=== PATIENT | female | born 1945 | race African-American/Black ===

== ENCOUNTER 2018-01-21 08:45 | Inpatient (IN) | payer OTHER ==
[2018-01-21 08:53] VITALS: BMI 28.6
--- NOTE | 2018-01-21 09:04 | PDOC ---
History of Present Illness - General Chief Complaint: Shortness of Breath Stated Complaint: BACK AND GROIN PAIN Time Seen by Provider: 01/21/18 09:03 - History of Present Illness Initial Comments: Ami Flaherty is a 73yo woman with a PMH of sickle cell disease, COPD, and HTN who presents reporting right groin pain since this morning that she states is "sickle cell pain." She says this pain is "20/10" constant, and non- radiating. Ms Flaherty also says that she's had this pain many times and knows what it is. She took her normal 40mg extended release oxycodone as well as her PRN immediate release 30mg oxycodone at home without improvement. She does also note mid-back pain across the entire back, present for weeks, that improved with the pain medications. She had an appointment with orthopedics this past week and was told that a "pin" from a prior surgery had become displaced; she is following up with her PMD regarding the back pain and is not concerned about it today. Also of note, Ms Flaherty's triage report lists SOB as her chief complaint, but she states that her breathing is at baseline today. She used her albuterol treatment last night with some improvement but due to the groin pain did not use the albuterol today; she endorses needing a breathing treatment currently but says she is not feeling particularly short of breath. She says that she told "the lady outside" that she was "always short of breath." Ms Flaherty denies any recent increased cough, chest pain, fever/chills, nausea/ vomiting, or change in bowel habits. She has been taking all of her medications as prescribed. She does endorse urinary urgency but says it has been present for "months" and she has an appointment with nephrology on the . She has otherwise been feeling at her baseline recently. Past History - Past Medical History Allergies/Adverse Reactions: Allergies Allergy/AdvReac Type Severity Reaction Status Date / Time ciprofloxacin [From Cipro] Allergy Itching Verified 01/21/18 08:48 ciprofloxacin HCl Allergy Itching Verified 01/21/18 08:48 [From Cipro] codeine [Codeine] Allergy Verified 01/21/18 08:48 levofloxacin [From Levaquin] Allergy Itching Verified 01/21/18 08:48 Penicillins Allergy Itching Verified 01/21/18 08:48 Sulfa (Sulfonamide Allergy Verified 01/21/18 08:48 Antibiotics) tetanus immune globulin Allergy Verified 01/21/18 08:48 IV DYE Allergy Uncoded 01/21/18 08:48 Home Medications: Ambulatory Orders Folic Acid - 1 mg PO DAILY 02/11/13 Docusate Sodium [Colace -] 100 mg PO DAILY 04/06/15 Montelukast Na [Singulair -] 10 mg PO HS 04/06/15 Budesonide/Formeterol Fumarate [SYMBICORT 160/4.5mcg -] 1 inh PO BID 08/19/15 Cholecalciferol (Vitamin D3) [Vitamin D3 -] 1,000 unit PO DAILY 08/19/15 Ipratropium/Albuterol Sulfate [Combivent Respimat 20-100 Mcg] 1 inh IH Q4H PRN 08/19/15 Acetaminophen [Tylenol .Extra-Strength -] 1,000 mg PO Q8H PRN #0 tablet Apixaban [Eliquis] 2.5 mg PO DAILY 11/19/15 Chlorhexidine Gluconate 480 ml MM HS #1 mouthwash 11/25/15 Albuterol Sulfate [Proair Hfa] 2 inh IH QID PRN 01/21/18 Apixaban [Eliquis] 5 mg PO DAILY 01/21/18 Duloxetine HCl 30 mg PO HS 01/21/18 Duloxetine HCl 60 mg PO BID 01/21/18 Gabapentin 300 mg PO HS 01/21/18 Gabapentin [Neurontin] 100 mg PO HS 01/21/18 Hydrochlorothiazide [Hctz -] 12.5 mg PO BID 01/21/18 Losartan Potassium [Cozaar -] 50 mg PO DAILY 01/21/18 Oxycodone HCl [Oxycontin] 40 mg PO QID PRN 01/21/18 Anemia: Yes (SICKLE CELL) Asthma: No (BRONCHITIS) Cancer: No CVA: No COPD: No Diabetes: No HTN: Yes Seizures: No - Surgical History Abdominal Surgery: Yes Cardiac Surgery: No Cholecystectomy: Yes Orthopedic Surgery: Yes (nato hip replacement 2005 ?) - Immunization History Immunization Up to Date: Yes (no pna) - Suicide/Smoking/Psychosocial Hx Smoking Status: No Smoking History: Never smoked Number of Cigarettes Smoked Daily: 0 Hx Alcohol Use: No Drug/Substance Use Hx: No Substance Use Type: None Hx Substance Use Treatment: No Review of Systems - Review of Systems Comments:: General: No fevers, no chills, no weight or appetite change, no malaise HEENT: No changes in vision, no changes in hearing, no nasal congestion, no sore throat CV: No chest pain, no palpitations, no LE edema Pulm: +chronic SOB, +chronic wheezing, no unusual/new cough GI: No nausea or vomiting, no change in bowel habits, no melena : No frequency, no dysuria, no hematuria. +urgency (several months) Musc: +mid back pain, no joint swelling, no recent injury Skin: No rash, no lesions, no erythema Endo: No excessive thirst, no heat/cold intolerance Heme: No unusual bruising or bleeding, no swollen glands. +fully anticoagulated Allergy: No recent hives, no allergic reactions Neuro: No syncope, no numbness/tingling, no focal weakness Vasc: No claudication Psych: No recent change in mood, no SI or HI *Physical Exam - Vital Signs Last Vital Signs Temp Pulse Resp BP Pulse Ox 99 F 116 H 24 H 134/75 93 L 01/21/18 08:48 01/21/18 08:48 01/21/18 08:48 01/21/18 08:48 01/21/18 08:48 - Physical Exam Comments: General: Comfortable, no acute distress HEENT: PERRL, EOMI, MMM, voice normal, normal neck ROM, no LAD Cards: Tachycardic in low 100's, no murmur appreciated Pulm: Satting in low 90's on room air. Diffuse wheezing b/l Abd: Soft, nontender, nondistended. R groin w/o erythema, edema, or obvious injury Ext: Atraumatic. No LE edema. ROM intact. Strength 5/5 and equal bilaterally Vasc: Extremities WWP. Skin: Normal color, no rashes or lesions Neuro: A&Ox3, CN grossly intact, normal speech, motor/sensory grossly intact and symmetric Psych: Mood appropriate to situation Moderate Sedation - Procedure Monitoring Vital Signs: Procedure Monitoring Vital Signs Temperature 99 F 01/21/18 08:48 Pulse Rate 116 H 01/21/18 08:48 Respiratory Rate 24 H 01/21/18 08:48 Blood Pressure 134/75 01/21/18 08:48 O2 Sat by Pulse Oximetry (%) 93 L 01/21/18 08:48 ED Treatment Course - LABORATORY CBC & Chemistry Diagram: 01/21/18 10:10 01/21/18 10:10 Medical Decision Making - Medical Decision Making 01/21/18 09:42 Ami Flaherty is a 73yo woman with a PMH of sickle cell disease, COPD, HTN, and previous PE on apixaban who presents with right groin pain that she reports is consistent with previous sickle cell crisis. She was also noted to be tachycardic with low O2 sats and diffuse wheezing. - Concern for sickle cell crisis given groin pain. Given recent urinary urgency and mid-back pain, could also potentially be UTI or kidney stone. - Hypoxia, wheezing, mild tachypnea most likely due to known COPD. However, need to r/o acute chest syndrome or pneumonia. Pt also has a h/o PE; this is less likely the cause as she is on apixaban but may need to work up for current PE depending on presents of infiltrate on CXR and improvement with nebs. - CBC, CMP, reticulocyte count ordered for evaluation of sickle cell, possible crisis - CXR to evaluate for infiltrate, pneumonia v acute chest. Also ordered blood cx - BNP to r/o fluid overload, though less likely given no h/o CHF - EKG ordered due to tachycardia 01/21/18 11:43 - Labs reviewed. Leukocytosis to 15 (per chart review is at baseline), Cr elevated to 1.4 from previous value under 1 (from 2016). BNP 30, trop negative. - Meets sepsis criteria due to leukocytosis, tachycardia, tachypnea, hypoxia. Adding lactate, VBG, urine culture, rectal temp - CXR with LLL atalectesis. Ordering ceftriaxone and azithromycin for presumed pneumonia - Will send page Dr Mathur for admission - PO potassium ordered for hypokalemia 01/21/18 12:36 - Second page sent to Dr Mathur 01/21/18 12:54 - Spoke with NELIA Gonzalez for admission. Accepted to Dr Mathur's service. - Lactate 2.2. Will recheck per sepsis protocol. Already received IVF. Seen and discussed with Dr Dong. Roselia Vargas PGY1 *DC/Admit/Observation/Transfer Diagnosis at time of Disposition: Sepsis, Sickle cell anemia with pain, Elevated serum creatinine, Hypokalemia - Discharge Dispostion Decision to Admit order: Yes - Referrals Referrals: Javed Wilkinson MD [Primary Care Provider] - - Patient Instructions - Post Discharge Activity
--- NOTE | 2018-01-21 09:18 | PDOC ---
Attending Attestation - Resident Resident Name: Roselia Vargas - ED Attending Attestation I have performed the following: I have examined & evaluated the patient, The case was reviewed & discussed with the resident, I agree w/resident's findings & plan, Exceptions are as noted - Physicial Exam PE: 01/21/18 09:42 GENERAL: The patient is awake, alert, and fully oriented, Nontoxic - in no acute distress. HEAD: Normocephalic, atraumatic. EYES: extraocular movements intact, sclera anicteric, conjunctiva clear. ENT: Normal voice, Moist mucous membranes. NECK: Normal range of motion, supple LUNGS: rhonchi bilaterally, moderate respiratory distress HEART: Regular rate and rhythm, normal S1 and S2 without murmur, rub or gallop. ABDOMEN: Soft, nontender, No guarding, no rebound. . No CVA tenderness EXTREMITIES: Normal range of motion, no edema. no focal bony tenderness on hip , mild ttp to inner groin/hip NEUROLOGICAL: No facial assymetry, Normal speech, movijnga ll 4 extremiies spontaneously and symmetrically PSYCH: Normal mood, normal affect. SKIN: Warm, Dry, normal turgor, 01/21/18 09:44 - Medical Decision Making 01/21/18 09:16 73y F hx of asthma, sickle cell disease, PE (compliant w/ eliquis) presents with groin since this AM - consistent with her previous sickle cell pain crises. Patient also endorses several weeks of mid back pain that is currently being evaluated as outpatient as well as mild urinary hesitancy that is being worked up by urology. Patient endorses some shortness of breath and cough for several days as well as some dyspnea on exertion without any fevers, chills, chest pain, hemoptysis, leg swelling, calf pain. Concern for possible sickle cell crisis, or shortness breath may be secondary to acute chest wall rule out with chest x-ray, are also possible bronchitis/ asthma exacerbation we will give the patient some DuoNeb. Will obtain EKG to screen for acute cardiac disease. If chest x-ray is negative may consider pulmonary embolism as the patient is tachycardic, hypoxic. Fluids for hydration, morphine for pain control anticipate admissoin for further management A portion of this note was documented by scribe services under my direction. I have reviewed the details of the note, within reason, and agree with the documentation with the following case summary and management plan written by me 01/21/18 11:33 cxr noted for atelectasis vs infiltrate. pna vs acute chest (does not have a infiltrate that involves entire lobe) will treat with ctx and azithromycin labs noted for elevated wbc retic count slightly elevated will admit for further mangaement <[email or web address] - Last Filed: 01/21/18 12:10> - HPI HPI: 01/21/18 09:52 The patient is a 73 year old female, with a significant past medical history of PE on Eliquis BID(x6, ~5 while on Coumadin), asthma (chronic SOB uses at home nebulizers), sickle cell disease, COPD, kidney stones, and HTN, who presents to the emergency department with, left groin pain since this morning. She ranks her pain a 20/10, radiating to her left calf, and similar to her baseline sickle cell attacks. She endorses taking her at home Oxycodone, without relief prompting her visit to the ER. She notes back pain (a month with ortho follow up ) and mild urinary retention (2 months with urology follow up). She denies a history of acute chest. She denies recent fevers, chills, headache or dizziness. She denies recent nausea, vomit, diarrhea or constipation. She denies recent dysuria or hematuria. She denies recent chest pain. Allergies: Ciprofloxacin (Itching) , Ciprofloxacin HCL (Itching), Codeine, levofloxacin (Itching) , penicillin (Itching) , sulfa, tetanus immune globulin, and IV dye Past surgical history: Cholecystectomy, blt hip replacement, and bladder lift. Social history: Nonsmoker. Denies EtOH use and recreational drug use. Primary Care Physician: Dr. Becky Wilkinson - Medical Decision Making 01/21/18 11:30am Call placed to Dr. Mathur, covering doctor for Dr. Wilkinson. Made aware POSITION CLASSIFICATION SPECIALIST Zoran Gonzalez covering awaiting call back. 12:15pm Second placed to Dr. Mathur, covering doctor for Dr. Wilkinson. Made aware POSITION CLASSIFICATION SPECIALIST Zoran Gonzalez covering awaiting call back. <Jazz Jay - Last Filed: 01/21/18 12:36> Heart Score/ECG Review - ECG Impressions Comment:: 12/15/18 12:11 Twelve-lead EKG was performed and reviewed by me. There is normal sinus rhythm with a normal rate. rate of 113 left axis devaitaion sinus tachycardia <Les Dong - Last Filed: 01/21/18 12:10> Attestations - Attestations 01/21/18 09:52 Documentation prepared by Jazz Jay, acting as medical billing manager for Les Dong MD. <Jazz Jay - Last Filed: 01/21/18 12:36>
[2018-01-21] MEDS ORDERED: SODIUM CHLORIDE 0.9% 500 ML INFUS.BAG IV ONE (09:21)
[2018-01-21] MEDS ORDERED: ALBUTEROL SO4 2.5/IPRATROPIUM 0.5 INH SOL 3 ML VIAL.NEB. NEB ONE ×2 (09:21→09:51)
[2018-01-21] MEDS ORDERED: morphine CARPU-JECT 4 MG/1 ML DISP.SYRIN IVPUSH ONE (09:21)
[2018-01-21 10:35] LABS: BASO % 1.5 % (0-2.0); EOS % 3.5 % (0-4.5); HEMATOCRIT 30.9 % (32.4-45.2); HEMOGLOBIN 10.6 GM/dL (10.7-15.3); LYMPH % 23.1 % (8-40); MCH 27.2 pg (25.7-33.7); MCHC 34.3 g/dl (32.0-36.0); MEAN CELL VOLUME 79.4 fl (80-96); MEAN PLT VOLUME 8.4 fl (7.5-11.1); MONO % 5.7 % (3.8-10.2); NEUT % 66.2 % (42.8-82.8); PLATELET COUNT 330 K/MM3 (134-434); RBC 3.89 M/mm3 (3.60-5.2); RDW 19.5 % (11.6-15.6); RETICULOCYTES 2.37 % (0.5-1.5); WHITE BLOOD COUNT 14.9 K/mm3 (4.0-10.0)
[2018-01-21 10:42] LABS: ALBUMIN 3.1 g/dl (3.4-5.0); ALK PHOS 126 U/L (45-117); ANION GAP 8 MMOL/L (8-16); BILIRUBIN,TOTAL 0.6 mg/dL (0.2-1); BLOOD UREA NITROGEN 15 mg/dL (7-18); CALCIUM 7.8 mg/dL (8.5-10.1); CHLORIDE 100 mmol/L (98-107); CO2 30 mmol/L (21-32); CREATININE 1.4 mg/dL (0.55-1.3); GLUCOSE,RANDOM 144 mg/dL (74-106); POTASSIUM 3.3 mmol/L (3.5-5.1); SGOT/AST 14 U/L (15-37); SGPT/ALT 8 U/L (13-61); SODIUM 138 mmol/L (136-145); TOT PROT 7.9 g/dl (6.4-8.2)
[2018-01-21 10:44] LABS: N-TERMINAL BNP 30.7 pg/ml (5-125)
[2018-01-21] MEDS ORDERED: CEFTRIAXONE 1,000 MG in DEXTROSE 5%-WATER - 50 ML IVPB ONE (11:33)
[2018-01-21] MEDS ORDERED: AZITHROMYCIN IVPB 500 MG in DEXTROSE 5%-WATER - 250 ML IVPB ONE (11:33)
[2018-01-21] MEDS ORDERED: CEFTRIAXONE 1 GM/50 ML BAG ONE ×2 (11:49→11:51)
[2018-01-21] MEDS ORDERED: AZITHROMYCIN IVPB 500 MG/250 ML BAG IVPB ONE (11:49)
[2018-01-21 12:30] LABS: INR 1.32 (0.83-1.09); PROTHROMBIN TIME (PATIENT) 15.6 SEC (9.7-13.0)
[2018-01-21 12:33] LABS: ACTIVATED PTT 30.8 SECONDS (25.2-36.5)
[2018-01-21] MEDS ORDERED: POTASSIUM CHLORIDE TABS 20 MEQ TABLET.ER (FP) PO ONE (12:35)
[2018-01-21] MEDS ORDERED: oxyCODONE HCL 40 MG SUSTAINED ACTING TABLET PO PRN (12:37)
[2018-01-21] MEDS ORDERED: ALBUTEROL SO4 8 GM HFA INHALER IH PRN (12:37)
[2018-01-21] MEDS ORDERED: ACETAMINOPHEN 500 MG TABLET (FP) PO PRN ×2 (12:37→12:57)
[2018-01-21 12:45] LABS: ANISOCYTOSIS 2+; MACROCYTOSIS 1+; PLATELET ESTIMATE NORMAL
[2018-01-21] MEDS ORDERED: ALBUTEROL SO4 0.083% IH SOL 2.5 MG/3 ML VIAL.NEB. NEB PRN (12:45)
[2018-01-21] MEDS ORDERED: oxyCODONE HCL 5 MG TABLET PO PRN (12:45)
[2018-01-21] MEDS ORDERED: SODIUM CHLORIDE 1,000 ML IV SCH (13:00)
[2018-01-21 13:04] LABS: VENOUS PC02 62.3 mmHg (38-52); VENOUS PH 7.31 (7.32-7.42); VENOUS PO2 62.3 mmHg (28-48)
[2018-01-21] MEDS: FOLIC ACID 1 MG TABLET (FP) PO SCH (13:15)
[2018-01-21] MEDS ORDERED: POTASSIUM CHLORIDE ORAL LIQUID 20 MEQ/15 ML ONE (13:23)
[2018-01-21] MEDS ORDERED: FOLIC ACID 1 MG TABLET (FP) ONE (13:23)
--- NOTE | 2018-01-21 14:56 | HP ---
Admitting History and Physical - Primary Care Physician PCP: Javed Wilkinson (Pedro Mathur) - Admission Chief Complaint: Sickle cell crisis History of Present Illness: Ami Flaherty is a 73yo woman with a PMH of sickle cell disease, COPD, and HTN who presents reporting right groin pain since this morning that she states is "sickle cell pain." She says this pain is "20/10" constant, and non- radiating. Ms Flaherty also says that she's had this pain many times and knows what it is. She took her normal 40mg extended release oxycodone as well as her PRN immediate release 30mg oxycodone at home without improvement. She does also note mid-back pain across the entire back, present for weeks, that improved with the pain medications. She had an appointment with orthopedics this past week and was told that a "pin" from a prior surgery had become displaced; she is following up with her PMD regarding the back pain and is not concerned about it today. Also of note, Ms Flaherty's triage report lists SOB as her chief complaint, but she states that her breathing is at baseline today. She used her albuterol treatment last night with some improvement but due to the groin pain did not use the albuterol today; she endorses needing a breathing treatment currently but says she is not feeling particularly short of breath. She says that she told "the lady outside" that she was "always short of breath." Ms Flaherty denies any recent increased cough, chest pain, fever/chills, nausea/ vomiting, or change in bowel habits. She has been taking all of her medications as prescribed. She does endorse urinary urgency but says it has been present for "months" and she has an appointment with nephrology on the . She has otherwise been feeling at her baseline recently. History Source: Patient, Medical Record Limitations to Obtaining History: No Limitations - Past Medical History Cardiovascular: Yes: HTN Pulmonary: Yes: COPD, Pulmonary Embolus Heme/Onc: Yes: Sickle Cell Disease, Other (SC disease , followed at [facility]) Psych: Yes: Addictions, Other (Pain meds- methadone, oxycodone ) Musculoskeletal: Yes: Chronic low back pain - Past Surgical History Past Surgical History: Yes: Cholecystectomy - Smoking History Smoking history: Never smoked Aproximately how many cigarettes per day: 0 - Alcohol/Substance Use Hx Alcohol Use: No History of Substance Use: reports: Prescription - Social History ADL: Independent History of Recent Travel: No Home Medications - Allergies Allergies/Adverse Reactions: Allergies Allergy/AdvReac Type Severity Reaction Status Date / Time ciprofloxacin [From Cipro] Allergy Itching Verified 01/21/18 08:48 ciprofloxacin HCl Allergy Itching Verified 01/21/18 08:48 [From Cipro] codeine [Codeine] Allergy Verified 01/21/18 08:48 levofloxacin [From Levaquin] Allergy Itching Verified 01/21/18 08:48 Penicillins Allergy Itching Verified 01/21/18 08:48 Sulfa (Sulfonamide Allergy Verified 01/21/18 08:48 Antibiotics) tetanus immune globulin Allergy Verified 01/21/18 08:48 IV DYE Allergy Uncoded 01/21/18 08:48 - Home Medications Home Medications: Ambulatory Orders Folic Acid - 1 mg PO DAILY 02/11/13 Docusate Sodium [Colace -] 100 mg PO DAILY 04/06/15 Montelukast Na [Singulair -] 10 mg PO HS 04/06/15 Budesonide/Formeterol Fumarate [SYMBICORT 160/4.5mcg -] 1 inh PO BID 08/19/15 Cholecalciferol (Vitamin D3) [Vitamin D3 -] 1,000 unit PO DAILY 08/19/15 Ipratropium/Albuterol Sulfate [Combivent Respimat 20-100 Mcg] 1 inh IH Q4H PRN 08/19/15 Acetaminophen [Tylenol .Extra-Strength -] 1,000 mg PO Q8H PRN #0 tablet Apixaban [Eliquis] 2.5 mg PO DAILY 11/19/15 Chlorhexidine Gluconate 480 ml MM HS #1 mouthwash 11/25/15 Albuterol Sulfate [Proair Hfa] 2 inh IH QID PRN 01/21/18 Apixaban [Eliquis] 5 mg PO DAILY 01/21/18 Duloxetine HCl 30 mg PO HS 01/21/18 Duloxetine HCl 60 mg PO BID 01/21/18 Gabapentin 300 mg PO HS 01/21/18 Gabapentin [Neurontin] 100 mg PO HS 01/21/18 Hydrochlorothiazide [Hctz -] 12.5 mg PO BID 01/21/18 Losartan Potassium [Cozaar -] 50 mg PO DAILY 01/21/18 Oxycodone HCl [Oxycontin] 40 mg PO QID PRN 01/21/18 Family Disease History - Family Disease History Family Disease History: Diabetes: Mother (HTN, TIIDM, Stroke), Heart Disease: Mother, CA: Father (Lung CA), Other: Mother Review of Systems - Review of Systems Constitutional: reports: Other (generalized pain) Eyes: reports: No Symptoms HENT: reports: No Symptoms Neck: reports: No Symptoms Cardiovascular: reports: No Symptoms Respiratory: reports: No Symptoms Gastrointestinal: reports: No Symptoms Genitourinary: reports: No Symptoms Breasts: reports: No Symptoms Reported Musculoskeletal: reports: No Symptoms Integumentary: reports: No Symptoms Neurological: reports: No Symptoms Endocrine: reports: No Symptoms Hematology/Lymphatic: reports: No Symptoms Psychiatric: reports: No Symptoms Pain Intensity: 6 Physical Examination Vital Signs: Vital Signs Temperature 97.2 F L 01/21/18 13:24 Pulse Rate 93 H 01/21/18 13:24 Respiratory Rate 18 01/21/18 11:45 Blood Pressure 117/60 01/21/18 13:24 O2 Sat by Pulse Oximetry (%) 99 01/21/18 13:24 Constitutional: Yes: Well Nourished, No Distress, Calm Cardiovascular: Yes: Regular Rate and Rhythm Respiratory: Yes: Regular Gastrointestinal: Yes: Normal Bowel Sounds, Soft Labs: CBC, BMP 01/21/18 10:10 01/21/18 10:10
[2018-01-21] MEDS: LOSARTAN POTASSIUM 50 MG TABLET (FP) PO SCH (15:32)
[2018-01-21] MEDS: CHOLECALCIFEROL (VITAMIN D3) 1,000 UNIT TABLET (FP) PO SCH (15:32)
[2018-01-21] MEDS: DOCUSATE SODIUM 100 MG CAPSULE (FP) PO SCH (15:32)
[2018-01-21] MEDS: oxyCODONE HCL 40 MG SUSTAINED ACTING TABLET PO SCH ×3 (15:34→22:53)
[2018-01-21] MEDS ORDERED: PT OWN MED DRAWER 7, Y5N ONE (15:36)
[2018-01-21] MEDS: BUDESONIDE/FORMETEROL FUMARATE 160/4.5 mcg INHALER IH SCH (15:38)
[2018-01-21] MEDS: ALBUTEROL SO4 2.5/IPRATROPIUM 0.5 INH SOL 3 ML VIAL.NEB. NEB SCH ×2 (16:21→21:28)
[2018-01-21] MEDS: DULoxetine HCL 30 MG CAPSULE.DR (FP) PO SCH (22:52)
[2018-01-21] MEDS: GABAPENTIN 300 MG CAPSULE (FP) PO SCH (22:53)
[2018-01-21] MEDS: MONTELUKAST NA 10 MG TABLET PO SCH (22:54)
[2018-01-21] MEDS: CHLORHEXIDINE GLUCONATE 0.12% 15ML CUP MM SCH (22:54)
[2018-01-22] MEDS: ALBUTEROL SO4 2.5/IPRATROPIUM 0.5 INH SOL 3 ML VIAL.NEB. NEB SCH ×5 (00:24→20:34)
[2018-01-22] MEDS: MORPHINE SULFATE 2 MG/ML VIAL IVPUSH PRN ×2 (01:24→17:12)
[2018-01-22] MEDS ORDERED: PT OWN MED DRAWER 7, Y5N ONE (07:16)
[2018-01-22 08:09] LABS: PHOSPHOROUS 3.1 mg/dL (2.5-4.9)
[2018-01-22 08:36] LABS: URINE APPEARANCE CLEAR; URINE BILIRUBIN NEGATIVE (<2.0 mg/dL); URINE COLOR STRAW; URINE GLUCOSE (UA) NEGATIVE (NEGATIVE); URINE KETONE NEGATIVE (NEGATIVE); URINE LEUK ESTERASE NEGATIVE (NEGATIVE); URINE NITRITE NEGATIVE (NEGATIVE); URINE PROTEIN NEGATIVE (NEGATIVE); URINE UROBILINOGEN NEGATIVE mg/dL (0.2-1.0)
[2018-01-22 08:55] LABS: HEMATOCRIT 28.6 % (32.4-45.2); HEMOGLOBIN 9.8 GM/dL (10.7-15.3); MCH 27.1 pg (25.7-33.7); MCHC 34.1 g/dl (32.0-36.0); MEAN CELL VOLUME 79.5 fl (80-96); MEAN PLT VOLUME 9.2 fl (7.5-11.1); PLATELET COUNT 306 K/MM3 (134-434); RDW 19.5 % (11.6-15.6); WHITE BLOOD COUNT 14.3 K/mm3 (4.0-10.0)
[2018-01-22 09:00] LABS: ALBUMIN 2.7 g/dl (3.4-5.0); ALK PHOS 97 U/L (45-117); ANION GAP 8 MMOL/L (8-16); BILIRUBIN,TOTAL 0.5 mg/dL (0.2-1); BLOOD UREA NITROGEN 10 mg/dL (7-18); CALCIUM 7.3 mg/dL (8.5-10.1); CHLORIDE 107 mmol/L (98-107); CO2 28 mmol/L (21-32); CREATININE 0.8 mg/dL (0.55-1.3); GLUCOSE,RANDOM 85 mg/dL (74-106); POTASSIUM 3.6 mmol/L (3.5-5.1); SGOT/AST 15 U/L (15-37); SGPT/ALT 6 U/L (13-61); SODIUM 142 mmol/L (136-145); TOT PROT 6.8 g/dl (6.4-8.2)
--- NOTE | 2018-01-22 09:36 | CON.ID ---
Consult Consult Specialty:: infectious disease Referred by:: dr newell Reason for Consultation:: cough, pneumonia - History of Present Illness Chief Complaint: left groin pain, cough/sob/wheezing History of Present Illness: 73 yo female with SC disease, admitted for left groin painsince Tuesday- classic for her sc pain not responding to po pain meds no history of fevers but states she never gets fever +wheezing with cough for at least 5 days now non productive +influenza vaccine this year UTD with pneumonia vaccine feels better with improvement of pain this am eleveated wbc and lactic acid in the ER received ceftriaxone and zithromax in [facility] yesterday had vomiting on Tuesday that has resolved no sick contacts no recent antibiotics - History Source History Provided By: Patient, Medical Record Limitations to Obtaining History: No Limitations - Past Medical History Cardio/Vascular: Yes: HTN Pulmonary: Yes: COPD, Pulmonary Embolus Heme/Onc: Yes: Sickle Cell Disease (SC disease) Psych: Yes: Addictions, Other (Pain meds- methadone, oxycodone ) Musculoskeletal: Yes: Chronic low back pain - Past Surgical History Past Surgical History: Yes: Cholecystectomy, Hysterectomy, Joint Replacement ( bilateral hip replacements) Additional Surgical History: bilateral rotator cuff surgery. lumbar spine surgery - Alcohol/Substance Use Hx Alcohol Use: No History of Substance Use: reports: Prescription - Smoking History Smoking history: Never smoked Aproximately how many cigarettes per day: 0 - Social History Usual Living Arrangement: With Spouse ADL: Independent History of Recent Travel: No Home Medications - Allergies Allergies/Adverse Reactions: Allergies Allergy/AdvReac Type Severity Reaction Status Date / Time ciprofloxacin [From Cipro] Allergy Itching Verified 01/21/18 08:48 ciprofloxacin HCl Allergy Itching Verified 01/21/18 08:48 [From Cipro] codeine [Codeine] Allergy Verified 01/21/18 08:48 levofloxacin [From Levaquin] Allergy Itching Verified 01/21/18 08:48 Penicillins Allergy Itching Verified 01/21/18 08:48 Sulfa (Sulfonamide Allergy Verified 01/21/18 08:48 Antibiotics) tetanus immune globulin Allergy Verified 01/21/18 08:48 IV DYE Allergy Uncoded 01/21/18 08:48 - Home Medications Home Medications: Ambulatory Orders Folic Acid - 1 mg PO DAILY 02/11/13 Docusate Sodium [Colace -] 100 mg PO DAILY 04/06/15 Montelukast Na [Singulair -] 10 mg PO HS 04/06/15 Budesonide/Formeterol Fumarate [SYMBICORT 160/4.5mcg -] 1 inh PO BID 08/19/15 Cholecalciferol (Vitamin D3) [Vitamin D3 -] 1,000 unit PO DAILY 08/19/15 Ipratropium/Albuterol Sulfate [Combivent Respimat 20-100 Mcg] 1 inh IH Q4H PRN 08/19/15 Acetaminophen [Tylenol .Extra-Strength -] 1,000 mg PO Q8H PRN #0 tablet Apixaban [Eliquis] 2.5 mg PO DAILY 11/19/15 Chlorhexidine Gluconate 480 ml MM HS #1 mouthwash 11/25/15 Albuterol Sulfate [Proair Hfa] 2 inh IH QID PRN 01/21/18 Apixaban [Eliquis] 5 mg PO DAILY 01/21/18 Duloxetine HCl 30 mg PO HS 01/21/18 Duloxetine HCl 60 mg PO BID 01/21/18 Gabapentin 300 mg PO HS 01/21/18 Gabapentin [Neurontin] 100 mg PO HS 01/21/18 Hydrochlorothiazide [Hctz -] 12.5 mg PO BID 01/21/18 Losartan Potassium [Cozaar -] 50 mg PO DAILY 01/21/18 Oxycodone HCl [Oxycontin] 40 mg PO QID PRN 01/21/18 Family Disease History - Family Disease History Family Disease History: Diabetes: Mother (HTN, TIIDM, Stroke), Heart Disease: Mother, CA: Father (Lung CA), Other: Mother Review of Systems - Review of Systems Constitutional: reports: Loss of Appetite Eyes: reports: No Symptoms HENT: reports: No Symptoms. denies: Difficult Swallowing Neck: reports: No Symptoms Cardiovascular: reports: No Symptoms. denies: Chest Pain, Edema Respiratory: reports: Cough, Wheezing Gastrointestinal: reports: Other (left groin pain) Genitourinary: reports: Other (urinary retention being evaluated by urology). denies: Burning, Dysuria Neurological: reports: No Symptoms Endocrine: reports: No Symptoms Physical Exam Vital Signs: Vital Signs Temperature 98 F 01/22/18 06:42 Pulse Rate 95 H 01/22/18 06:42 Respiratory Rate 20 01/22/18 06:42 Blood Pressure 129/64 01/22/18 06:42 O2 Sat by Pulse Oximetry (%) 99 01/21/18 13:24 Constitutional: Yes: Well Nourished, No Distress, Calm Eyes: Yes: Conjunctiva Clear, EOM Intact HENT: Yes: Atraumatic, Normocephalic. No: Thrush, Tonsillar Exudate Neck: Yes: Supple, Trachea Midline. No: Lymphadenopathy Cardiovascular: Yes: Regular Rate and Rhythm Respiratory: Yes: Rhonchi, Wheezes Gastrointestinal: Yes: Normal Bowel Sounds, Soft. No: Tenderness, Tenderness, Epigastrium ...Rectal Exam: Yes: Deferred Extremities: Yes: WNL Edema: No Integumentary: No: Rash Neurological: Yes: Alert, Oriented Psychiatric: Yes: Alert, Oriented Labs: CBC, BMP 01/22/18 06:00 01/22/18 06:00 Laboratory Tests 01/21/18 01/21/18 01/22/18 12:10 15:55 06:00 Lactic Acid 2.2 H* 2.6 H* 1.3 01/22/18 08:26 Lactic Acid Urine Color Straw Urine Appearance Clear Urine pH 6.0 Ur Specific [place] 1.004 L Urine Protein Negative Urine Glucose (UA) Negative Urine Ketones Negative Urine Blood Negative Urine Nitrite Negative Urine Bilirubin Negative Urine Urobilinogen Negative Ur Leukocyte Esterase Negative Imaging - Results Chest X-ray: Report Reviewed (atelectasis left base, t9 partical compression fracture) Problem List - Problems (1) COPD exacerbation Code(s): J44.1 - CHRONIC OBSTRUCTIVE PULMONARY DISEASE W (ACUTE) EXACERBATION (2) Sickle cell anemia with pain Code(s): D57.00 - HB-SS DISEASE WITH CRISIS, UNSPECIFIED (3) Pneumonia Code(s): J18.9 - PNEUMONIA, UNSPECIFIED ORGANISM Assessment/Plan cannot r/o pneumonia-in the setting of SC disease and current respiratory symptoms would continue rocephin/zithromax f/u cultures check urinary antigens continue nebs sc pain appears to be improved
--- NOTE | 2018-01-22 09:44 | CONSULT ---
Consult - text type - Consultation Consultation Note: Renal Consult for GUCCI This is a 73 year old AA woman with hx of Sickle Cell disease, Hypertension, COPD who presented groin pain and admitted with sick cell crisis. Pt had pain that was worsening over 2 days and not getting better with oral pain meds at home. Her Cr was noted to be 1.4 on admission. Was told in the past that the sickle cell disease had resulted in scaring of her kidney. Is also on Losartan at home. Denies any NSIAD use. No SOB, CP, abd pain, fever, chills, N/V/D at this time. PMhx: as above Allergies: NKDA Family Hx: NC Social Hx: No T/A/D ROS: as per HPI Home Medications Medication Instructions Recorded Folic Acid - 1 mg PO DAILY 02/11/13 Docusate Sodium [Colace -] 100 mg PO DAILY 04/06/15 Montelukast Na [Singulair -] 10 mg PO HS 04/06/15 Budesonide/Formeterol Fumarate 1 inh PO BID 08/19/15 [SYMBICORT 160/4.5mcg -] Cholecalciferol (Vitamin D3) 1,000 unit PO DAILY 08/19/15 [Vitamin D3 -] Ipratropium/Albuterol Sulfate 1 inh IH Q4H PRN 08/19/15 [Combivent Respimat 20-100 Mcg] Acetaminophen [Tylenol 1,000 mg PO Q8H PRN #0 tablet 08/24/15 .Extra-Strength -] Apixaban [Eliquis] 2.5 mg PO DAILY 11/19/15 Chlorhexidine Gluconate 480 ml MM HS #1 mouthwash 11/25/15 Albuterol Sulfate [Proair Hfa] 2 inh IH QID PRN 01/21/18 Apixaban [Eliquis] 5 mg PO DAILY 01/21/18 Duloxetine HCl 30 mg PO HS 01/21/18 Duloxetine HCl 60 mg PO BID 01/21/18 Gabapentin 300 mg PO HS 01/21/18 Gabapentin [Neurontin] 100 mg PO HS 01/21/18 Hydrochlorothiazide [Hctz -] 12.5 mg PO BID 01/21/18 Losartan Potassium [Cozaar -] 50 mg PO DAILY 01/21/18 Oxycodone HCl [Oxycontin] 40 mg PO QID PRN 01/21/18 Vital Signs Temperature 98 F 01/22/18 06:42 Pulse Rate 95 H 01/22/18 06:42 Respiratory Rate 20 01/22/18 06:42 Blood Pressure 129/64 01/22/18 06:42 O2 Sat by Pulse Oximetry (%) 99 01/21/18 13:24 NAD awake and alert neck supple RRR, no M/R CTA soft NT/ND no Le edema no bladder distension CBC, BMP 01/22/18 06:00 01/22/18 06:00 Current Medications Acetaminophen (Tylenol -) 1,000 mg PO Q6H PRN PRN Reason: FEVER Albuterol Sulfate (Ventolin 0.083% Nebulizer Soln -) 1 amp NEB Q4H PRN PRN Reason: SHORT OF BREATH/WHEEZING Albuterol/Ipratropium (Duoneb -) 1 amp NEB Q6H [facility] Last Admin: 01/22/18 07:49 Dose: 1 amp Budesonide/Formoterol Fumarate (Symbicort 160/4.5mcg -) 1 puff IH BID [facility] Last Admin: 01/21/18 15:38 Dose: Not Given Chlorhexidine Gluconate (Peridex -) 480 ml MM HS [facility] Last Admin: 01/21/18 22:54 Dose: Not Given Cholecalciferol (Vitamin D3 -) 1,000 unit PO DAILY [facility] Last Admin: 01/21/18 15:32 Dose: 1,000 unit Docusate Sodium (Colace -) 100 mg PO DAILY [facility] Last Admin: 01/21/18 15:32 Dose: 100 mg Duloxetine HCl (Cymbalta -) 30 mg PO HS [facility] Last Admin: 01/21/18 22:52 Dose: 30 mg Folic Acid (Folic Acid -) 1 mg PO DAILY [facility] Last Admin: 01/21/18 13:15 Dose: 1 mg Gabapentin (Neurontin -) 300 mg PO HS [facility] Last Admin: 01/21/18 22:53 Dose: 300 mg Sodium Chloride (Normal Saline -) 1,000 mls @ 75 mls/hr IV ASDIR [facility] Last Admin: 01/21/18 15:33 Dose: 75 mls/hr Losartan Potassium (Cozaar -) 50 mg PO DAILY [facility] Last Admin: 01/21/18 15:32 Dose: 50 mg Montelukast Sodium (Singulair -) 10 mg PO HS [facility] Last Admin: 01/21/18 22:54 Dose: 10 mg Morphine Sulfate (Morphine Sulfate) 2 mg IVPUSH Q6H PRN PRN Reason: PAIN LEVEL 7 - 10 Last Admin: 01/22/18 01:24 Dose: 2 mg Oxycodone HCl (Roxicodone -) 5 mg PO Q6H PRN PRN Reason: PAIN LEVEL 4 - 6 Oxycodone HCl (Oxycontin -) 40 mg PO QID [facility] Last Admin: 01/21/18 22:53 Dose: 40 mg 73 year old AA woman with hx of Sickle Cell disease, Hypertension, COPD who presented groin pain and admitted with sick cell crisis with GUCCI. #GUCCI secondary to volume depletion vs. renal infarction in setting of SCD #Sickle cell crisis #Hypertension #Anemia Renal function now improving, continue IVF would recommend discontinuation of HCTZ in the halfway as volume depletion can potentiate risk of further crisis episdoes check US of the kidney to access for evidence of ischemia/infarction pt not on hydroxyurea at this time, ? 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
[2018-01-22] MEDS: oxyCODONE HCL 40 MG SUSTAINED ACTING TABLET PO SCH ×4 (09:49→21:07)
[2018-01-22] MEDS: LOSARTAN POTASSIUM 50 MG TABLET (FP) PO SCH (09:50)
[2018-01-22] MEDS: FOLIC ACID 1 MG TABLET (FP) PO SCH (09:50)
[2018-01-22] MEDS: BUDESONIDE/FORMETEROL FUMARATE 160/4.5 mcg INHALER IH SCH ×3 (09:50→21:09)
[2018-01-22] MEDS: DOCUSATE SODIUM 100 MG CAPSULE (FP) PO SCH (09:50)
[2018-01-22] MEDS: CHOLECALCIFEROL (VITAMIN D3) 1,000 UNIT TABLET (FP) PO SCH (09:50)
--- NOTE | 2018-01-22 10:00 | PN ---
Progress Note, Physician Chief Complaint: GUCCI Intractable low back pain sepsis History of Present Illness: NAD - Current Medication List Current Medications: Active Medications Acetaminophen (Tylenol -) 1,000 mg PO Q6H PRN PRN Reason: FEVER Albuterol Sulfate (Ventolin 0.083% Nebulizer Soln -) 1 amp NEB Q4H PRN PRN Reason: SHORT OF BREATH/WHEEZING Albuterol/Ipratropium (Duoneb -) 1 amp NEB Q6H [facility] Last Admin: 01/22/18 07:49 Dose: 1 amp Budesonide/Formoterol Fumarate (Symbicort 160/4.5mcg -) 1 puff IH BID [facility] Last Admin: 01/22/18 09:50 Dose: 1 puff Chlorhexidine Gluconate (Peridex -) 480 ml MM HS [facility] Last Admin: 01/21/18 22:54 Dose: Not Given Cholecalciferol (Vitamin D3 -) 1,000 unit PO DAILY [facility] Last Admin: 01/22/18 09:50 Dose: 1,000 unit Docusate Sodium (Colace -) 100 mg PO DAILY [facility] Last Admin: 01/22/18 09:50 Dose: 100 mg Duloxetine HCl (Cymbalta -) 30 mg PO HS [facility] Last Admin: 01/21/18 22:52 Dose: 30 mg Folic Acid (Folic Acid -) 1 mg PO DAILY [facility] Last Admin: 01/22/18 09:50 Dose: 1 mg Gabapentin (Neurontin -) 300 mg PO HS [facility] Last Admin: 01/21/18 22:53 Dose: 300 mg Sodium Chloride (Normal Saline -) 1,000 mls @ 75 mls/hr IV ASDIR [facility] Last Admin: 01/21/18 15:33 Dose: 75 mls/hr Losartan Potassium (Cozaar -) 50 mg PO DAILY [facility] Last Admin: 01/22/18 09:50 Dose: 50 mg Montelukast Sodium (Singulair -) 10 mg PO HS [facility] Last Admin: 01/21/18 22:54 Dose: 10 mg Morphine Sulfate (Morphine Sulfate) 2 mg IVPUSH Q6H PRN PRN Reason: PAIN LEVEL 7 - 10 Last Admin: 01/22/18 01:24 Dose: 2 mg Oxycodone HCl (Roxicodone -) 5 mg PO Q6H PRN PRN Reason: PAIN LEVEL 4 - 6 Oxycodone HCl (Oxycontin -) 40 mg PO QID [facility] Last Admin: 01/22/18 09:49 Dose: 40 mg - Objective Vital Signs: Vital Signs Temperature 98 F 01/22/18 06:42 Pulse Rate 95 H 01/22/18 06:42 Respiratory Rate 20 01/22/18 06:42 Blood Pressure 129/64 01/22/18 06:42 O2 Sat by Pulse Oximetry (%) 99 01/21/18 13:24 Labs: CBC, BMP 01/22/18 06:00 01/22/18 06:00 INR, PTT INR 1.32 (0.83-1.09) H 01/21/18 12:10
[2018-01-22] MEDS: AZITHROMYCIN 250 MG TABLET PO SCH (10:27)
[2018-01-22] MEDS ORDERED: CEFTRIAXONE 1 GM in DEXTROSE 5%-WATER 100 ML IVPB SCH (10:32)
[2018-01-22] MEDS ORDERED: DEXTROSE 5%-WATER - 50 ML IVPB ONE (10:40)
[2018-01-22] MEDS ORDERED: cefTRIAXone SODIUM 1 GM VIAL ONE (10:40)
[2018-01-22] MEDS: CEFTRIAXONE 1 GM in DEXTROSE 5%-WATER - 100 ML IVPB SCH ×2 (10:47→10:49)
[2018-01-22] MEDS: CEFTRIAXONE 1 GM in DEXTROSE 5%-WATER - 50 ML IVPB SCH (10:48)
[2018-01-22 11:00] LABS: ANISOCYTOSIS 1+; MACROCYTOSIS 0; PLATELET ESTIMATE NORMAL; TARGET CELLS 2+
[2018-01-22 11:18] LABS: URINE APPEARANCE CLEAR; URINE BILIRUBIN NEGATIVE (<2.0 mg/dL); URINE COLOR STRAW; URINE GLUCOSE (UA) NEGATIVE (NEGATIVE); URINE KETONE NEGATIVE (NEGATIVE); URINE LEUK ESTERASE 1+ (NEGATIVE); URINE NITRITE NEGATIVE (NEGATIVE); URINE PROTEIN NEGATIVE (NEGATIVE); URINE UROBILINOGEN NEGATIVE mg/dL (0.2-1.0)
[2018-01-22 11:29] LABS: EPI CELLS FEW /HPF (FEW)
--- NOTE | 2018-01-22 12:22 | EKG ---
Test Reason : Blood Pressure : / mmHG Vent. Rate : 113 BPM Atrial Rate : 113 BPM P-R Int : 162 ms QRS Dur : 074 ms QT Int : 320 ms P-R-T Axes : 072 -42 056 degrees QTc Int : 438 ms SINUS TACHYCARDIA LEFT AXIS DEVIATION ABNORMAL ECG WHEN COMPARED WITH ECG OF 19-NOV-2015 13:59, VENT. RATE HAS INCREASED BY 49 BPM NONSPECIFIC T WAVE ABNORMALITY NO LONGER EVIDENT IN INFERIOR LEADS NONSPECIFIC T WAVE ABNORMALITY, IMPROVED IN ANTEROLATERAL LEADS Confirmed by YEHUDA MAJOR MD ([id number]) on 01/22/2018 12:21:52 PM Referred By: Confirmed By:YEHUDA MAJOR MD
--- NOTE | 2018-01-22 13:02 | CONSULT ---
Consult Consult Specialty:: Hematology Referred by:: Medicine Reason for Consultation:: Sickle crisis - History of Present Illness Chief Complaint: Patient with history of SC disease, presented with ongoing generalized 1-2 days, not responsive to her usual opioid pain regimen History of Present Illness: Known SC disease, managed at [facility], on home opioid regime, apparently tightly controlled and monitored. Also attends Sickle clinic - Dr Mcintosh. Very few crisis related admissions - and few sickle related complications. No clear precipitant for current crisis - patient believes she may have been dehydrated, which she attributes to decreased fluid intake past few days. Now feeling well,and back to baseline. Present consult for leukocytosis. - Past Medical History Cardio/Vascular: Yes: HTN Pulmonary: Yes: COPD, Pulmonary Embolus Psych: Yes: Addictions, Other (Pain meds- methadone, oxycodone ) Musculoskeletal: Yes: Chronic low back pain - Past Surgical History Past Surgical History: Yes: Cholecystectomy, Hysterectomy, Joint Replacement ( bilateral hip replacements) Additional Surgical History: bilateral rotator cuff surgery. lumbar spine surgery - Alcohol/Substance Use Hx Alcohol Use: No History of Substance Use: reports: Prescription - Smoking History Smoking history: Never smoked Aproximately how many cigarettes per day: 0 - Social History Usual Living Arrangement: With Spouse ADL: Independent History of Recent Travel: No Home Medications - Allergies Allergies/Adverse Reactions: Allergies Allergy/AdvReac Type Severity Reaction Status Date / Time ciprofloxacin [From Cipro] Allergy Itching Verified 01/21/18 08:48 ciprofloxacin HCl Allergy Itching Verified 01/21/18 08:48 [From Cipro] codeine [Codeine] Allergy Verified 01/21/18 08:48 levofloxacin [From Levaquin] Allergy Itching Verified 01/21/18 08:48 Penicillins Allergy Itching Verified 01/21/18 08:48 Sulfa (Sulfonamide Allergy Verified 01/21/18 08:48 Antibiotics) tetanus immune globulin Allergy Verified 01/21/18 08:48 IV DYE Allergy Uncoded 01/21/18 08:48 - Home Medications Home Medications: Ambulatory Orders Folic Acid - 1 mg PO DAILY 02/11/13 Docusate Sodium [Colace -] 100 mg PO DAILY 04/06/15 Montelukast Na [Singulair -] 10 mg PO HS 04/06/15 Budesonide/Formeterol Fumarate [SYMBICORT 160/4.5mcg -] 1 inh PO BID 08/19/15 Cholecalciferol (Vitamin D3) [Vitamin D3 -] 1,000 unit PO DAILY 08/19/15 Ipratropium/Albuterol Sulfate [Combivent Respimat 20-100 Mcg] 1 inh IH Q4H PRN 08/19/15 Acetaminophen [Tylenol .Extra-Strength -] 1,000 mg PO Q8H PRN #0 tablet Apixaban [Eliquis] 2.5 mg PO DAILY 11/19/15 Chlorhexidine Gluconate 480 ml MM HS #1 mouthwash 11/25/15 Albuterol Sulfate [Proair Hfa] 2 inh IH QID PRN 01/21/18 Apixaban [Eliquis] 5 mg PO DAILY 01/21/18 Duloxetine HCl 30 mg PO HS 01/21/18 Duloxetine HCl 60 mg PO BID 01/21/18 Gabapentin 300 mg PO HS 01/21/18 Gabapentin [Neurontin] 100 mg PO HS 01/21/18 Hydrochlorothiazide [Hctz -] 12.5 mg PO BID 01/21/18 Losartan Potassium [Cozaar -] 50 mg PO DAILY 01/21/18 Oxycodone HCl [Oxycontin] 40 mg PO QID PRN 01/21/18 Family Disease History - Family Disease History Family Disease History: Diabetes: Mother (HTN, TIIDM, Stroke), Heart Disease: Mother, CA: Father (Lung CA), Other: Mother Physical Exam Vital Signs: Vital Signs Temperature 98 F 01/22/18 06:42 Pulse Rate 95 H 01/22/18 06:42 Respiratory Rate 20 01/22/18 06:42 Blood Pressure 129/64 01/22/18 06:42 O2 Sat by Pulse Oximetry (%) 99 01/21/18 13:24 Constitutional: Yes: Well Nourished, No Distress, Obese Eyes: Yes: Conjunctiva Clear Neck: Yes: WNL. No: Lymphadenopathy Cardiovascular: Yes: Regular Rate and Rhythm, S1, S2. No: Gallop, Murmur Respiratory: Yes: Regular, Wheezes. No: SOB Gastrointestinal: Yes: Normal Bowel Sounds, Soft. No: Palpable Mass, Tenderness , Epigastrium Edema: No Integumentary: Yes: WNL ...Motor Strength: WNL Psychiatric: Yes: Alert, Oriented Labs: CBC, BMP 01/22/18 06:00 01/22/18 06:00 Assessment/Plan Sickle SC disease, with infrequent crises requiring admission, presents with painful crisis, now quickly resolved with hydration. precipitant unclear - possibly dehydration. Mild neutrophilia noted on admission likely attributable to sickle crisis, and is typical for her, low index of suspicion for sepsis. Following discharge will continue care at [facility] Sickle clinic.
[2018-01-22] MEDS: APIXABAN 5 MG TABLET PO SCH ×2 (13:42→21:06)
--- NOTE | 2018-01-22 14:43 | PN ---
Progress Note (short form) - Note Progress Note: PULMONARY CONSULTATION DICTATED 01/22/18 IMP SICKLE CELL CRISIS ASTHMA EXACERBATION URI,?PNEUMONIA H/O RECURRENT PULMONARY EMBOLISM HTN PLAN IVF ANALGESICS INHALED BRONCHODILATORS O2 ABX PER ID ELIMARY ANNE CHEST CT PFTS OUTPATIENT CULTURES MONITOR PEAK FLOW DR PANDEY Problem List - Problems (1) Sickle cell crisis Code(s): D57.00 - HB-SS DISEASE WITH CRISIS, UNSPECIFIED (2) COPD (chronic obstructive pulmonary disease) with chronic bronchitis Code(s): J44.9 - CHRONIC OBSTRUCTIVE PULMONARY DISEASE, UNSPECIFIED (3) Pulmonary embolism and infarction Code(s): I26.99 - OTHER PULMONARY EMBOLISM WITHOUT ACUTE COR PULMONALE (4) Pulmonary embolism during treatment with long-term anticoagulation therapy Code(s): I26.99 - OTHER PULMONARY EMBOLISM WITHOUT ACUTE COR PULMONALE; Z79.01 - HALF-WAY (CURRENT) USE OF ANTICOAGULANTS (5) Pneumonia Code(s): J18.9 - PNEUMONIA, UNSPECIFIED ORGANISM (6) Asthma Code(s): J45.909 - UNSPECIFIED ASTHMA, UNCOMPLICATED (7) Asthma attack Code(s): J45.901 - UNSPECIFIED ASTHMA WITH (ACUTE) EXACERBATION
--- NOTE | 2018-01-22 16:10 | CONS ---
DATE OF CONSULTATION: 01/22/2018 PRIMARY PHYSICIAN: Viktoria Walsh MD. 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 The patient denies any fevers, chills, nausea, vomiting or diaphoresis. The patient on admission took her normal 40 mg of oxycodone at home which did not offer any improvement. She presented to the emergency room above. In the emergency room she was felt to have acute sickle cell crisis on her pain medication and IV fluid. She also was started on antibiotics for possible pneumonia. She denies any fevers, chills, nausea or hemoptysis. There is no history of recent URI symptoms. As stated before she has a history of asthma for approximately 1 year. She has never been intubated. She is on an inhaled bronchodilator at home. PAST MEDICAL HISTORY: Includes sickle cell disease, COPD, hypertension, recurrent pulmonary emboli previously lasting 4 years ago. She previously was on Coumadin and currently on Eliquis. REVIEW OF SYSTEMS: Positive dyspnea, positive cough. No chest pain, no palpitations, or back pain, no fevers, no chills, no hemoptysis. CURRENT MEDICATIONS: Include Symbicort , Tylenol, Cozaar, Zithromax, ceftriaxone, Eliquis, Neurontin, Cymbalta, DuoNeb, Colace, , oxycodone, and OxyContin. PHYSICAL EXAMINATION: General: The patient is a well-developed, well-nourished female currently awake, alert, appears comfortable in no acute distress. She is currently afebrile. Vital Signs: Blood pressure 124/73, respiratory rate is 20, oxygen saturation is 98% on 2 L. HEENT: Examination is normocephalic, atraumatic. Neck: Supple. Heart: Regular S1, S2. Chest: Scattered bilateral wheezes. Abdomen: Soft, nondistended. Bowel sounds are positive. Extremities: No cyanosis or edema. LABORATORIES: WBC 14.3, hemoglobin 9.8, hematocrit 28.6, with a platelet count of 306,000. There are 49 polys, 1 band, and 37 lymphocytes, and 4 eosinophils. INR is 1.32. Venous blood gas 7.31, PCO2 62, PO2 of 63. Lactate is 2.6 on admission, currently 1.3. BUN 10, creatinine 0.8. IMAGING: Chest x-ray reveals an elevated left right hemidiaphragm and atelectatic change to the left base. IMPRESSION: 1. Sickle cell crisis. 2. Likely asthma exacerbation. 3. Probable pneumonia. 4. Hypertension. PLAN: IV fluids, inhaled bronchodilators, supplemental oxygen, steroids, antibiotics as per Infectious Disease. We will also obtain a CT scan of the chest. Start her on inhaled bronchodilators, supplemental oxygen, IV fluids, and analgesics. CT scan of the chest. DICK PANDEY M.D. [id number]
[2018-01-22] MEDS: DULoxetine HCL 30 MG CAPSULE.DR (FP) PO SCH (21:05)
[2018-01-22] MEDS: MONTELUKAST NA 10 MG TABLET PO SCH (21:06)
[2018-01-22] MEDS: GABAPENTIN 300 MG CAPSULE (FP) PO SCH (21:08)
[2018-01-23] MEDS: CHLORHEXIDINE GLUCONATE 0.12% 15ML CUP MM SCH ×2 (05:43→21:38)
[2018-01-23 06:10] LABS: HEMATOCRIT 30.6 % (32.4-45.2); HEMOGLOBIN 9.9 GM/dL (10.7-15.3); LYMPH % 46.7 % (8-40); MCH 25.6 pg (25.7-33.7); MCHC 32.3 g/dl (32.0-36.0); MEAN CELL VOLUME 79.5 fl (80-96); MEAN PLT VOLUME 8.2 fl (7.5-11.1); MONO % 3.7 % (3.8-10.2); NEUT % 45.6 % (42.8-82.8); PLATELET COUNT 299 K/MM3 (134-434); RBC 3.85 M/mm3 (3.60-5.2); RDW 19.6 % (11.6-15.6); WHITE BLOOD COUNT 13.8 K/mm3 (4.0-10.0)
[2018-01-23 06:39] LABS: ALBUMIN 2.7 g/dl (3.4-5.0); ALK PHOS 104 U/L (45-117); ANION GAP 5 MMOL/L (8-16); BILIRUBIN,TOTAL 0.3 mg/dL (0.2-1); BLOOD UREA NITROGEN 7 mg/dL (7-18); CALCIUM 7.7 mg/dL (8.5-10.1); CHLORIDE 105 mmol/L (98-107); CO2 31 mmol/L (21-32); CREATININE 0.9 mg/dL (0.55-1.3); GLUCOSE,RANDOM 136 mg/dL (74-106); POTASSIUM 3.6 mmol/L (3.5-5.1); SGOT/AST 13 U/L (15-37); SGPT/ALT 8 U/L (13-61); SODIUM 141 mmol/L (136-145); TOT PROT 7.1 g/dl (6.4-8.2)
[2018-01-23] MEDS: ALBUTEROL SO4 2.5/IPRATROPIUM 0.5 INH SOL 3 ML VIAL.NEB. NEB SCH ×4 (07:50→21:19)
[2018-01-23] MEDS ORDERED: PT OWN MED DRAWER 7, Y5N ONE (10:51)
[2018-01-23] MEDS ORDERED: cefTRIAXone SODIUM 1 GM VIAL ONE (10:51)
[2018-01-23] MEDS ORDERED: DEXTROSE 5%-WATER - 50 ML IVPB ONE (10:52)
[2018-01-23] MEDS: DOCUSATE SODIUM 100 MG CAPSULE (FP) PO SCH (10:55)
[2018-01-23] MEDS: oxyCODONE HCL 40 MG SUSTAINED ACTING TABLET PO SCH ×3 (10:56→21:36)
[2018-01-23] MEDS: APIXABAN 5 MG TABLET PO SCH ×2 (10:56→21:36)
[2018-01-23] MEDS: FOLIC ACID 1 MG TABLET (FP) PO SCH (10:56)
[2018-01-23] MEDS: LOSARTAN POTASSIUM 50 MG TABLET (FP) PO SCH (10:56)
[2018-01-23] MEDS: CEFTRIAXONE 1 GM in DEXTROSE 5%-WATER - 50 ML IVPB SCH (10:57)
[2018-01-23] MEDS: AZITHROMYCIN 250 MG TABLET PO SCH (10:58)
[2018-01-23] MEDS: BUDESONIDE/FORMETEROL FUMARATE 160/4.5 mcg INHALER IH SCH ×2 (10:58→21:38)
[2018-01-23] MEDS: CHOLECALCIFEROL (VITAMIN D3) 1,000 UNIT TABLET (FP) PO SCH (10:58)
[2018-01-23 11:12] LABS: ANISOCYTOSIS 2+; MACROCYTOSIS 0; OVALOCYTE 2+; PLATELET ESTIMATE NORMAL; TARGET CELLS 2+; TEAR DROP CELLS 1+
--- NOTE | 2018-01-23 11:14 | PN ---
Progress Note (short form) - Note Progress Note: continues to cough and wheeze ct scan of chest pending Vital Signs Period Temp Pulse Resp BP Sys/Mendez Pulse Ox Last 24 Hr 98.2 F-98.4 F 99-102 20-20 124-148/69-89 cor-rrr lungs bilateral wheezing abd soft,nt ext no edema CBC, BMP 01/23/18 05:30 01/23/18 05:30 Microbiology 01/21/18 10:00 Blood - Peripheral Venous Blood Culture - Preliminary NO GROWTH OBTAINED AFTER 48 HOURS, INCUBATION TO CONTINUE FOR 3 DAYS. 01/21/18 10:20 Blood - Peripheral Venous Blood Culture - Preliminary NO GROWTH OBTAINED AFTER 48 HOURS, INCUBATION TO CONTINUE FOR 3 DAYS. 01/22/18 10:58 Urine - Urine Clean Catch Urine Culture - Final NO GROWTH OBTAINED 01/22/18 11:00 Urine For Antigen Detection Legionella Antigen - Final- 01/22/18 11:00 Urine For Antigen Detection Streptococcus pneumoniae Antigen (M - Final Current Medications Acetaminophen (Tylenol -) 1,000 mg PO Q6H PRN PRN Reason: FEVER Albuterol Sulfate (Ventolin 0.083% Nebulizer Soln -) 1 amp NEB Q4H PRN PRN Reason: SHORT OF BREATH/WHEEZING Albuterol/Ipratropium (Duoneb -) 1 amp NEB RQID [facility] Last Admin: 01/23/18 07:50 Dose: 1 amp Apixaban (Eliquis -) 5 mg PO BID [facility] Last Admin: 01/23/18 10:56 Dose: 5 mg Azithromycin (Zithromax -) 500 mg PO DAILY [facility] Last Admin: 01/23/18 10:58 Dose: 500 mg Budesonide/Formoterol Fumarate (Symbicort 160/4.5mcg -) 1 puff IH BID [facility] Last Admin: 01/23/18 10:58 Dose: 1 puff Chlorhexidine Gluconate (Peridex -) 480 ml MM HS [facility] Last Admin: 01/23/18 05:43 Dose: Not Given Cholecalciferol (Vitamin D3 -) 1,000 unit PO DAILY [facility] Last Admin: 01/23/18 10:58 Dose: 1,000 unit Docusate Sodium (Colace -) 100 mg PO DAILY [facility] Last Admin: 01/23/18 10:55 Dose: 100 mg Duloxetine HCl (Cymbalta -) 30 mg PO HS [facility] Last Admin: 01/22/18 21:05 Dose: 30 mg Folic Acid (Folic Acid -) 1 mg PO DAILY [facility] Last Admin: 01/23/18 10:56 Dose: 1 mg Gabapentin (Neurontin -) 300 mg PO HS [facility] Last Admin: 01/22/18 21:08 Dose: 300 mg Ceftriaxone Sodium 1 gm/ (Dextrose) 50 mls @ 200 mls/hr IVPB DAILY [facility]; Protocol Last Admin: 01/23/18 10:57 Dose: 200 mls/hr Losartan Potassium (Cozaar -) 50 mg PO DAILY [facility] Last Admin: 01/23/18 10:56 Dose: 50 mg Montelukast Sodium (Singulair -) 10 mg PO HS [facility] Last Admin: 01/22/18 21:06 Dose: 10 mg Morphine Sulfate (Morphine Sulfate) 2 mg IVPUSH Q6H PRN PRN Reason: PAIN LEVEL 7 - 10 Last Admin: 01/22/18 17:12 Dose: 2 mg Oxycodone HCl (Roxicodone -) 5 mg PO Q6H PRN PRN Reason: PAIN LEVEL 4 - 6 Oxycodone HCl (Oxycontin -) 40 mg PO QID [facility] Last Admin: 01/23/18 10:56 Dose: 40 mg a/p r/o CAP- f/u cultures check influenza screen still wheezing f/u chest ct continue rocephin/zithromax sickle cell crisis Problem List - Problems (1) COPD exacerbation Code(s): J44.1 - CHRONIC OBSTRUCTIVE PULMONARY DISEASE W (ACUTE) EXACERBATION (2) Sickle cell anemia with pain Code(s): D57.00 - HB-SS DISEASE WITH CRISIS, UNSPECIFIED (3) Pneumonia Code(s): J18.9 - PNEUMONIA, UNSPECIFIED ORGANISM
--- NOTE | 2018-01-23 11:41 | PN ---
Progress Note, Physician Chief Complaint: lying in bed on iv abx awaiting ct chest report - Current Medication List Current Medications: Active Medications Acetaminophen (Tylenol -) 1,000 mg PO Q6H PRN PRN Reason: FEVER Albuterol Sulfate (Ventolin 0.083% Nebulizer Soln -) 1 amp NEB Q4H PRN PRN Reason: SHORT OF BREATH/WHEEZING Albuterol/Ipratropium (Duoneb -) 1 amp NEB RQID [facility] Last Admin: 01/23/18 11:32 Dose: 1 amp Apixaban (Eliquis -) 5 mg PO BID [facility] Last Admin: 01/23/18 10:56 Dose: 5 mg Azithromycin (Zithromax -) 500 mg PO DAILY [facility] Last Admin: 01/23/18 10:58 Dose: 500 mg Budesonide/Formoterol Fumarate (Symbicort 160/4.5mcg -) 1 puff IH BID [facility] Last Admin: 01/23/18 10:58 Dose: 1 puff Chlorhexidine Gluconate (Peridex -) 480 ml MM HS [facility] Last Admin: 01/23/18 05:43 Dose: Not Given Cholecalciferol (Vitamin D3 -) 1,000 unit PO DAILY [facility] Last Admin: 01/23/18 10:58 Dose: 1,000 unit Docusate Sodium (Colace -) 100 mg PO DAILY [facility] Last Admin: 01/23/18 10:55 Dose: 100 mg Duloxetine HCl (Cymbalta -) 30 mg PO HS [facility] Last Admin: 01/22/18 21:05 Dose: 30 mg Folic Acid (Folic Acid -) 1 mg PO DAILY [facility] Last Admin: 01/23/18 10:56 Dose: 1 mg Gabapentin (Neurontin -) 300 mg PO HS [facility] Last Admin: 01/22/18 21:08 Dose: 300 mg Ceftriaxone Sodium 1 gm/ (Dextrose) 50 mls @ 200 mls/hr IVPB DAILY [facility]; Protocol Last Admin: 01/23/18 10:57 Dose: 200 mls/hr Losartan Potassium (Cozaar -) 50 mg PO DAILY [facility] Last Admin: 01/23/18 10:56 Dose: 50 mg Montelukast Sodium (Singulair -) 10 mg PO HS [facility] Last Admin: 01/22/18 21:06 Dose: 10 mg Morphine Sulfate (Morphine Sulfate) 2 mg IVPUSH Q6H PRN PRN Reason: PAIN LEVEL 7 - 10 Last Admin: 01/22/18 17:12 Dose: 2 mg Oxycodone HCl (Roxicodone -) 5 mg PO Q6H PRN PRN Reason: PAIN LEVEL 4 - 6 Oxycodone HCl (Oxycontin -) 40 mg PO QID [facility] Last Admin: 01/23/18 10:56 Dose: 40 mg - Objective Vital Signs: Vital Signs Temperature 98.4 F 01/23/18 06:17 Pulse Rate 101 H 01/23/18 06:17 Respiratory Rate 20 01/23/18 06:17 Blood Pressure 136/69 01/23/18 06:17 O2 Sat by Pulse Oximetry (%) 99 01/21/18 13:24 Constitutional: Yes: Calm Cardiovascular: Yes: Regular Rate and Rhythm, S1, S2 Respiratory: Yes: Diminished Gastrointestinal: Yes: Normal Bowel Sounds, Soft Edema: No Neurological: Yes: Alert Labs: CBC, BMP 01/23/18 05:30 01/23/18 05:30 INR, PTT INR 1.32 (0.83-1.09) H 01/21/18 12:10 Problem List - Problems (1) Pulmonary embolism during treatment with long-term anticoagulation therapy Assessment/Plan: on eliquis Code(s): I26.99 - OTHER PULMONARY EMBOLISM WITHOUT ACUTE COR PULMONALE; 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 (2) Asthma attack Assessment/Plan: bronchodilators singulair Code(s): J45.901 - UNSPECIFIED ASTHMA WITH (ACUTE) EXACERBATION (3) Pneumonia Assessment/Plan: iv rocephin po Zithromax influenza screen pending ct chest report pending Code(s): J18.9 - PNEUMONIA, UNSPECIFIED ORGANISM (4) Sickle cell crisis Assessment/Plan: iv fluids and pain control Code(s): D57.00 - HB-SS DISEASE WITH CRISIS, UNSPECIFIED (5) Elevated serum creatinine Assessment/Plan: resolved with ivf renal sono noted Code(s): R79.89 - OTHER SPECIFIED ABNORMAL FINDINGS OF BLOOD CHEMISTRY (6) Hypokalemia Assessment/Plan: improved Code(s): E87.6 - HYPOKALEMIA
--- NOTE | 2018-01-23 12:52 | PN ---
Progress Note (short form) - Note Progress Note: Renal follow up for GUCCI Pt seen and examined at the bedside c/o cough/wheeze no cp, abd pain, fever, chills making urine tolerating oral diet Vital Signs Temperature 98.4 F 01/23/18 06:17 Pulse Rate 101 H 01/23/18 06:17 Respiratory Rate 20 01/23/18 06:17 Blood Pressure 136/69 01/23/18 06:17 O2 Sat by Pulse Oximetry (%) 99 01/21/18 13:24 Intake & Output 01/20/18 01/21/18 01/22/18 01/23/18 23:59 23:59 23:59 23:59 Intake Total 375 1255 350 Balance 375 1255 350 Weight 78.018 kg NAD Neck supple no LE edema CBC, BMP 01/23/18 05:30 01/23/18 05:30 Current Medications Acetaminophen (Tylenol -) 1,000 mg PO Q6H PRN PRN Reason: FEVER Albuterol Sulfate (Ventolin 0.083% Nebulizer Soln -) 1 amp NEB Q4H PRN PRN Reason: SHORT OF BREATH/WHEEZING Albuterol/Ipratropium (Duoneb -) 1 amp NEB RQID [facility] Last Admin: 01/23/18 11:32 Dose: 1 amp Apixaban (Eliquis -) 5 mg PO BID [facility] Last Admin: 01/23/18 10:56 Dose: 5 mg Azithromycin (Zithromax -) 500 mg PO DAILY [facility] Last Admin: 01/23/18 10:58 Dose: 500 mg Budesonide/Formoterol Fumarate (Symbicort 160/4.5mcg -) 1 puff IH BID [facility] Last Admin: 01/23/18 10:58 Dose: 1 puff Chlorhexidine Gluconate (Peridex -) 480 ml MM HS [facility] Last Admin: 01/23/18 05:43 Dose: Not Given Cholecalciferol (Vitamin D3 -) 1,000 unit PO DAILY [facility] Last Admin: 01/23/18 10:58 Dose: 1,000 unit Docusate Sodium (Colace -) 100 mg PO DAILY [facility] Last Admin: 01/23/18 10:55 Dose: 100 mg Duloxetine HCl (Cymbalta -) 30 mg PO HS [facility] Last Admin: 01/22/18 21:05 Dose: 30 mg Folic Acid (Folic Acid -) 1 mg PO DAILY [facility] Last Admin: 01/23/18 10:56 Dose: 1 mg Gabapentin (Neurontin -) 300 mg PO HS [facility] Last Admin: 01/22/18 21:08 Dose: 300 mg Ceftriaxone Sodium 1 gm/ (Dextrose) 50 mls @ 200 mls/hr IVPB DAILY [facility]; Protocol Last Admin: 01/23/18 10:57 Dose: 200 mls/hr Losartan Potassium (Cozaar -) 50 mg PO DAILY [facility] Last Admin: 01/23/18 10:56 Dose: 50 mg Montelukast Sodium (Singulair -) 10 mg PO HS [facility] Last Admin: 01/22/18 21:06 Dose: 10 mg Morphine Sulfate (Morphine Sulfate) 2 mg IVPUSH Q6H PRN PRN Reason: PAIN LEVEL 7 - 10 Last Admin: 01/22/18 17:12 Dose: 2 mg Oxycodone HCl (Roxicodone -) 5 mg PO Q6H PRN PRN Reason: PAIN LEVEL 4 - 6 Oxycodone HCl (Oxycontin -) 40 mg PO QID [facility] Last Admin: 01/23/18 10:56 Dose: 40 mg 73 year old AA woman with hx of Sickle Cell disease, Hypertension, COPD who presented groin pain and admitted with sick cell crisis with GUCCI. #GUCCI secondary to volume depletion vs. renal infarction in setting of SCD #Sickle cell crisis #Hypertension #Anemia Renal function improved and stable of IVF would recommend discontinuation of HCTZ in the long-term as volume depletion can potentiate risk of further crisis episdoes Renal US showed some dilation of renal pelvis but does not appears to be pathologic BP is at goal ,continue losartan continue Abx as per ID f/u CT chest Thank you Will follow Enrique Flores DO
--- NOTE | 2018-01-23 13:41 | PN ---
Progress Note, Physician History of Present Illness: PULMONARY ALERT,OOB-CHAIR,LESS DYSPNEIC - Current Medication List Current Medications: Active Medications Acetaminophen (Tylenol -) 1,000 mg PO Q6H PRN PRN Reason: FEVER Albuterol Sulfate (Ventolin 0.083% Nebulizer Soln -) 1 amp NEB Q4H PRN PRN Reason: SHORT OF BREATH/WHEEZING Albuterol/Ipratropium (Duoneb -) 1 amp NEB RQID [facility] Last Admin: 01/23/18 11:32 Dose: 1 amp Apixaban (Eliquis -) 5 mg PO BID [facility] Last Admin: 01/23/18 10:56 Dose: 5 mg Azithromycin (Zithromax -) 500 mg PO DAILY [facility] Last Admin: 01/23/18 10:58 Dose: 500 mg Budesonide/Formoterol Fumarate (Symbicort 160/4.5mcg -) 1 puff IH BID [facility] Last Admin: 01/23/18 10:58 Dose: 1 puff Chlorhexidine Gluconate (Peridex -) 480 ml MM HS [facility] Last Admin: 01/23/18 05:43 Dose: Not Given Cholecalciferol (Vitamin D3 -) 1,000 unit PO DAILY [facility] Last Admin: 01/23/18 10:58 Dose: 1,000 unit Docusate Sodium (Colace -) 100 mg PO DAILY [facility] Last Admin: 01/23/18 10:55 Dose: 100 mg Duloxetine HCl (Cymbalta -) 30 mg PO HS [facility] Last Admin: 01/22/18 21:05 Dose: 30 mg Folic Acid (Folic Acid -) 1 mg PO DAILY [facility] Last Admin: 01/23/18 10:56 Dose: 1 mg Gabapentin (Neurontin -) 300 mg PO HS [facility] Last Admin: 01/22/18 21:08 Dose: 300 mg Ceftriaxone Sodium 1 gm/ (Dextrose) 50 mls @ 200 mls/hr IVPB DAILY [facility]; Protocol Last Admin: 01/23/18 10:57 Dose: 200 mls/hr Losartan Potassium (Cozaar -) 50 mg PO DAILY [facility] Last Admin: 01/23/18 10:56 Dose: 50 mg Montelukast Sodium (Singulair -) 10 mg PO HS [facility] Last Admin: 01/22/18 21:06 Dose: 10 mg Morphine Sulfate (Morphine Sulfate) 2 mg IVPUSH Q6H PRN PRN Reason: PAIN LEVEL 7 - 10 Last Admin: 01/22/18 17:12 Dose: 2 mg Oxycodone HCl (Roxicodone -) 5 mg PO Q6H PRN PRN Reason: PAIN LEVEL 4 - 6 Oxycodone HCl (Oxycontin -) 40 mg PO QID [facility] Last Admin: 01/23/18 10:56 Dose: 40 mg - Objective Vital Signs: Vital Signs Temperature 98.4 F 01/23/18 06:17 Pulse Rate 101 H 01/23/18 06:17 Respiratory Rate 20 01/23/18 06:17 Blood Pressure 136/69 01/23/18 06:17 O2 Sat by Pulse Oximetry (%) 99 01/21/18 13:24 Constitutional: Yes: Well Nourished, Calm Eyes: Yes: WNL HENT: Yes: WNL Neck: Yes: WNL Cardiovascular: Yes: Regular Rate and Rhythm, S1, S2 Respiratory: Yes: Wheezes (FEW WHEEZES) Gastrointestinal: Yes: Normal Bowel Sounds, Soft Extremities: Yes: WNL Edema: No Labs: CBC, BMP 01/23/18 05:30 01/23/18 05:30 INR, PTT INR 1.32 (0.83-1.09) H 01/21/18 12:10 Problem List - Problems (1) Sickle cell crisis Code(s): D57.00 - HB-SS DISEASE WITH CRISIS, UNSPECIFIED (2) COPD (chronic obstructive pulmonary disease) with chronic bronchitis Code(s): J44.9 - CHRONIC OBSTRUCTIVE PULMONARY DISEASE, UNSPECIFIED (3) Pulmonary embolism and infarction Code(s): I26.99 - OTHER PULMONARY EMBOLISM WITHOUT ACUTE COR PULMONALE (4) Pulmonary embolism during treatment with long-term anticoagulation therapy Code(s): I26.99 - OTHER PULMONARY EMBOLISM WITHOUT ACUTE COR PULMONALE; Z79.01 - ASSISTED (CURRENT) USE OF ANTICOAGULANTS (5) Pneumonia Code(s): J18.9 - PNEUMONIA, UNSPECIFIED ORGANISM (6) Asthma Code(s): J45.909 - UNSPECIFIED ASTHMA, UNCOMPLICATED (7) Asthma attack Code(s): J45.901 - UNSPECIFIED ASTHMA WITH (ACUTE) EXACERBATION Assessment/Plan IMP SICKLE CELL CRISIS ASTHMA EXACERBATION URI,?PNEUMONIA H/O RECURRENT PULMONARY EMBOLISM HTN PLAN IVF ANALGESICS INHALED BRONCHODILATORS O2 ABX PER ID ELIQUIS PFTS OUTPATIENT MONITOR PEAK FLOW DR PANDEY Problem List - Problems (1) Sickle cell crisis Code(s): D57.00 - HB-SS DISEASE WITH CRISIS, UNSPECIFIED (2) COPD (chronic obstructive pulmonary disease) with chronic bronchitis Code(s): J44.9 - CHRONIC OBSTRUCTIVE PULMONARY DISEASE, UNSPECIFIED (3) Pulmonary embolism and infarction Code(s): I26.99 - OTHER PULMONARY EMBOLISM WITHOUT ACUTE COR PULMONALE (4) Pulmonary embolism during treatment with long-term anticoagulation therapy Code(s): I26.99 - OTHER PULMONARY EMBOLISM WITHOUT ACUTE COR PULMONALE; Z79.01 - 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
[2018-01-23] MEDS: DULoxetine HCL 30 MG CAPSULE.DR (FP) PO SCH (21:36)
[2018-01-23] MEDS: GABAPENTIN 300 MG CAPSULE (FP) PO SCH (21:36)
[2018-01-23] MEDS: MONTELUKAST NA 10 MG TABLET PO SCH (21:36)
[2018-01-24 04:15] LABS: SERUM IRON SATURATION 32 % (15-55); TOTAL IRON BINDING CAPACITY 304 ug/dL (250-450); UIBC 206 ug/dL (118-369)
[2018-01-24] MEDS: ALBUTEROL SO4 2.5/IPRATROPIUM 0.5 INH SOL 3 ML VIAL.NEB. NEB SCH ×4 (08:53→20:25)
[2018-01-24 09:05] LABS: BASO % 1.8 % (0-2.0); EOS % 5.4 % (0-4.5); HEMATOCRIT 33.9 % (32.4-45.2); HEMOGLOBIN 10.8 GM/dL (10.7-15.3); LYMPH % 21.9 % (8-40); MCH 25.5 pg (25.7-33.7); MEAN CELL VOLUME 79.7 fl (80-96); MEAN PLT VOLUME 8.2 fl (7.5-11.1); MONO % 5.8 % (3.8-10.2); NEUT % 65.1 % (42.8-82.8); PLATELET COUNT 325 K/MM3 (134-434); RBC 4.25 M/mm3 (3.60-5.2); RDW 20.5 % (11.6-15.6); WHITE BLOOD COUNT 14.8 K/mm3 (4.0-10.0)
[2018-01-24] MEDS ORDERED: cefTRIAXone SODIUM 1 GM VIAL ONE (09:27)
[2018-01-24] MEDS ORDERED: DEXTROSE 5%-WATER - 50 ML IVPB ONE (09:28)
--- NOTE | 2018-01-24 10:01 | PN ---
Progress Note, Physician Chief Complaint: ASLEEP COMFORTABLE EVENTS AND NOTES REVIEWED - Current Medication List Current Medications: Active Medications Acetaminophen (Tylenol -) 1,000 mg PO Q6H PRN PRN Reason: FEVER Albuterol Sulfate (Ventolin 0.083% Nebulizer Soln -) 1 amp NEB Q4H PRN PRN Reason: SHORT OF BREATH/WHEEZING Albuterol/Ipratropium (Duoneb -) 1 amp NEB RQID [facility] Last Admin: 01/24/18 08:53 Dose: 1 amp Apixaban (Eliquis -) 5 mg PO BID [facility] Last Admin: 01/23/18 21:36 Dose: 5 mg Azithromycin (Zithromax -) 500 mg PO DAILY [facility] Last Admin: 01/23/18 10:58 Dose: 500 mg Budesonide/Formoterol Fumarate (Symbicort 160/4.5mcg -) 1 puff IH BID [facility] Last Admin: 01/23/18 21:38 Dose: 1 puff Chlorhexidine Gluconate (Peridex -) 480 ml MM HS [facility] Last Admin: 01/23/18 21:38 Dose: Not Given Cholecalciferol (Vitamin D3 -) 1,000 unit PO DAILY [facility] Last Admin: 01/23/18 10:58 Dose: 1,000 unit Docusate Sodium (Colace -) 100 mg PO DAILY [facility] Last Admin: 01/23/18 10:55 Dose: 100 mg Duloxetine HCl (Cymbalta -) 30 mg PO HS [facility] Last Admin: 01/23/18 21:36 Dose: 30 mg Folic Acid (Folic Acid -) 1 mg PO DAILY [facility] Last Admin: 01/23/18 10:56 Dose: 1 mg Gabapentin (Neurontin -) 300 mg PO HS [facility] Last Admin: 01/23/18 21:36 Dose: 300 mg Ceftriaxone Sodium 1 gm/ (Dextrose) 50 mls @ 200 mls/hr IVPB DAILY [facility]; Protocol Last Admin: 01/23/18 10:57 Dose: 200 mls/hr Losartan Potassium (Cozaar -) 50 mg PO DAILY [facility] Last Admin: 01/23/18 10:56 Dose: 50 mg Montelukast Sodium (Singulair -) 10 mg PO HS [facility] Last Admin: 01/23/18 21:36 Dose: 10 mg Morphine Sulfate (Morphine Sulfate) 2 mg IVPUSH Q6H PRN PRN Reason: PAIN LEVEL 7 - 10 Last Admin: 01/22/18 17:12 Dose: 2 mg Oxycodone HCl (Roxicodone -) 5 mg PO Q6H PRN PRN Reason: PAIN LEVEL 4 - 6 Oxycodone HCl (Oxycontin -) 40 mg PO BID [facility] Last Admin: 01/23/18 21:36 Dose: 40 mg - Objective Vital Signs: Vital Signs Temperature 98.4 F 01/24/18 06:00 Pulse Rate 97 H 01/24/18 06:00 Respiratory Rate 18 01/24/18 06:00 Blood Pressure 142/82 01/24/18 06:00 O2 Sat by Pulse Oximetry (%) 98 01/23/18 21:00 Constitutional: Yes: No Distress Eyes: Yes: WNL HENT: Yes: WNL Neck: Yes: WNL Cardiovascular: Yes: Regular Rate and Rhythm Respiratory: Yes: Diminished, On Nasal O2 Gastrointestinal: Yes: Soft Genitourinary: Yes: WNL Musculoskeletal: Yes: WNL Extremities: Yes: WNL Edema: No Peripheral Pulses WNL: Yes Neurological: Yes: WNL ...Motor Strength: WNL Psychiatric: Yes: WNL Labs: CBC, BMP 01/24/18 08:45 INR, PTT INR 1.32 (0.83-1.09) H 01/21/18 12:10 Problem List - Problems (1) Asthma Code(s): J45.909 - UNSPECIFIED ASTHMA, UNCOMPLICATED (2) Elevated serum creatinine Code(s): R79.89 - OTHER SPECIFIED ABNORMAL FINDINGS OF BLOOD CHEMISTRY (3) Pulmonary embolism during treatment with long-term anticoagulation therapy Code(s): I26.99 - OTHER PULMONARY EMBOLISM WITHOUT ACUTE COR PULMONALE; Z79.01 - INTERMEDIATE (CURRENT) USE OF ANTICOAGULANTS (4) Sickle cell anemia with pain Code(s): D57.00 - HB-SS DISEASE WITH CRISIS, UNSPECIFIED (5) Sickle cell crisis Code(s): D57.00 - HB-SS DISEASE WITH CRISIS, UNSPECIFIED Assessment/Plan ON AC NEBS PULM/02 THERAPY ANTIBIOTICS IV CHANGING TO PO ABX FOR DISCHARGE TOMORROW PAIN CONTROL HEME F/U
[2018-01-24 10:02] LABS: ALBUMIN 3.2 g/dl (3.4-5.0); ALK PHOS 109 U/L (45-117); ANION GAP 8 MMOL/L (8-16); BILIRUBIN,TOTAL 0.5 mg/dL (0.2-1); BLOOD UREA NITROGEN 7 mg/dL (7-18); CALCIUM 8.4 mg/dL (8.5-10.1); CHLORIDE 103 mmol/L (98-107); CO2 28 mmol/L (21-32); CREATININE 0.9 mg/dL (0.55-1.3); GLUCOSE,RANDOM 127 mg/dL (74-106); SGOT/AST 14 U/L (15-37); SGPT/ALT 8 U/L (13-61); SODIUM 139 mmol/L (136-145); TOT PROT 8.2 g/dl (6.4-8.2)
--- NOTE | 2018-01-24 10:29 | PN ---
Progress Note (short form) - Note Progress Note: Consult Progress Note: Hematology/Oncology continues to have cough and feels sob at times. feels more comfortable with nasal cannula, but able to breathe comfortably without supplemental oxygen. has increased her oral hydration. Pain in right lateral thigh starting to feel better since last night. was out of bed walking around yesterday denies fevers, chills, chest pain, nausea, vomiting, hematuria/dysuria/diarrhea Pt follows at [facility] for [place] disease, and normally has a WBC of 14. Vital Signs Temperature 98.4 F 01/24/18 06:00 Pulse Rate 97 H 01/24/18 06:00 Respiratory Rate 18 01/24/18 06:00 Blood Pressure 142/82 01/24/18 06:00 O2 Sat by Pulse Oximetry (%) 98 01/23/18 21:00 PE: NAD, +cough no oral lesions, nontender sinuses, -scleral ict +wheezing and rales in b/l lungs no MRG nontender chest abd soft, nd/nt no myalgia/joint pain or swelling, FROM in all joints. nontender left lateral thigh to palpation or movement of knee 2+ pules radial and DP no LE edema Laboratory Last Values WBC 14.8 K/mm3 (4.0-10.0) H 01/24/18 08:45 RBC 4.25 M/mm3 (3.60-5.2) 01/24/18 08:45 Hgb 10.8 GM/dL (10.7-15.3) 01/24/18 08:45 Hct 33.9 % (32.4-45.2) 01/24/18 08:45 MCV 79.7 fl (80-96) L 01/24/18 08:45 MCH 25.5 pg (25.7-33.7) L 01/24/18 08:45 MCHC 32.0 g/dl (32.0-36.0) 01/24/18 08:45 RDW 20.5 % (11.6-15.6) H 01/24/18 08:45 Plt Count 325 K/MM3 (134-434) 01/24/18 08:45 MPV 8.2 fl (7.5-11.1) 01/24/18 08:45 Absolute Neuts (auto) 9.7 K/mm3 (1.5-8.0) H 01/24/18 08:45 Neutrophils % 65.1 % (42.8-82.8) D 01/24/18 08:45 Neutrophils % (Manual) 50.5 % (42.8-82.8) 01/23/18 05:30 Band Neutrophils % 0.0 % 01/23/18 05:30 Lymphocytes % 21.9 % (8-40) D 01/24/18 08:45 Lymphocytes % (Manual) 23.7 % (8-40) D 01/23/18 05:30 Monocytes % 5.8 % (3.8-10.2) 01/24/18 08:45 Monocytes % (Manual) 6 % (3.8-10.2) 01/23/18 05:30 Eosinophils % 5.4 % (0-4.5) H 01/24/18 08:45 Eosinophils % (Manual) 3.1 % (0-4.5) 01/23/18 05:30 Basophils % 1.8 % (0-2.0) 01/24/18 08:45 Basophils % (Manual) 0.0 % (0-2.0) 01/23/18 05:30 Myelocytes % (Man) 0 % (0-2) 01/23/18 05:30 Promyelocytes % (Man) 0 % (0-2) 01/23/18 05:30 Blast Cells % (Manual) 0 % (0-0) 01/23/18 05:30 Nucleated RBC % 1 % (0-0) H 01/24/18 08:45 Metamyelocytes 0 % (0-2) 01/23/18 05:30 Hypochromia 2+ 01/23/18 05:30 Platelet Estimate Normal 01/23/18 05:30 Polychromasia 2+ 01/23/18 05:30 Poikilocytosis 0 01/23/18 05:30 Anisocytosis 2+ 01/23/18 05:30 Microcytosis 2+ 01/23/18 05:30 Macrocytosis 0 01/23/18 05:30 Target Cells 2+ 01/23/18 05:30 Tear Drop Cells 1+ 01/23/18 05:30 Ovalocytes 2+ 01/23/18 05:30 Retic Count 2.37 % (0.5-1.5) H 01/21/18 10:10 PT with INR 15.60 SEC (9.7-13.0) H 01/21/18 12:10 INR 1.32 (0.83-1.09) H 01/21/18 12:10 PTT (Actin FS) 30.8 SECONDS (25.2-36.5) 01/21/18 12:10 VBG pH 7.31 (7.32-7.42) L 01/21/18 12:58 POC VBG pCO2 62.3 mmHg (38-52) H* 01/21/18 12:58 POC VBG pO2 62.3 mmHg (28-48) H 01/21/18 12:58 Mixed VBG HCO3 30.4 meq/L (19-25) H 01/21/18 12:58 Sodium 139 mmol/L (136-145) 01/24/18 08:45 Potassium 4.0 mmol/L (3.5-5.1) 01/24/18 08:45 Chloride 103 mmol/L (98-107) 01/24/18 08:45 Carbon Dioxide 28 mmol/L (21-32) 01/24/18 08:45 Anion Gap 8 MMOL/L (8-16) 01/24/18 08:45 BUN 7 mg/dL (7-18) 01/24/18 08:45 Creatinine 0.9 mg/dL (0.55-1.3) 01/24/18 08:45 Creat Clearance w eGFR > 60 (>60) 01/24/18 08:45 Random Glucose 127 mg/dL (74-106) H 01/24/18 08:45 Hemoglobin A1c % 4.7 % (4.2-6.3) 01/22/18 06:00 Lactic Acid 1.3 mmol/L (0.4-2.0) 01/22/18 06:00 Calcium 8.4 mg/dL (8.5-10.1) L 01/24/18 08:45 Phosphorus 3.1 mg/dL (2.5-4.9) 01/22/18 06:00 Iron 98 ug/dL (27-139) 01/22/18 06:00 TIBC 304 ug/dL (250-450) 01/22/18 06:00 Iron Saturation 32 % (15-55) 01/22/18 06:00 Ferritin 40.1 ng/ml (8-388) 01/22/18 06:00 Total Bilirubin 0.5 mg/dL (0.2-1) 01/24/18 08:45 AST 14 U/L (15-37) L 01/24/18 08:45 ALT 8 U/L (13-61) L 01/24/18 08:45 Alkaline Phosphatase 109 U/L (45-117) 01/24/18 08:45 Creatine Kinase 114 IU/L (26-192) 01/21/18 10:10 Troponin I < 0.02 ng/ml (0.00-0.05) 01/21/18 10:10 B-Natriuretic Peptide 30.7 pg/ml (5-125) 01/21/18 10:10 Total Protein 8.2 g/dl (6.4-8.2) 01/24/18 08:45 Albumin 3.2 g/dl (3.4-5.0) L 01/24/18 08:45 Urine Color Straw 01/22/18 11:00 Urine Appearance Clear 01/22/18 11:00 Urine pH 6.0 (5.0-8.0) 01/22/18 11:00 Ur Specific [place] 1.006 (1.010-1.035) L 01/22/18 11:00 Urine Protein Negative (NEGATIVE) 01/22/18 11:00 Urine Glucose (UA) Negative (NEGATIVE) 01/22/18 11:00 Urine Ketones Negative (NEGATIVE) 01/22/18 11:00 Urine Blood 1+ (NEGATIVE) H 01/22/18 11:00 Urine Nitrite Negative (NEGATIVE) 01/22/18 11:00 Urine Bilirubin Negative (<2.0 mg/dL) 01/22/18 11:00 Urine Urobilinogen Negative mg/dL (0.2-1.0) 01/22/18 11:00 Ur Leukocyte Esterase 1+ (NEGATIVE) H 01/22/18 11:00 Urine WBC (Auto) 2 /hpf (3-5) 01/22/18 11:00 Urine RBC (Auto) None /hpf (0-3) 01/22/18 11:00 Ur Epithelial Cells Few /HPF (FEW) 01/22/18 11:00 U Random Total Protein < 5 mg/dl (0-11.9) 01/22/18 08:26 Ur Random Sodium 58 MMOL/L (40-220) 01/22/18 08:26 Ur Random Urea Nitrogn 168 mg/dL (350-1000) L 01/22/18 08:26 Urine Creatinine 30.0 mg/dL (30-50) 01/22/18 08:26 Influenza A (Rapid) Negative 01/23/18 12:15 Influenza B (Rapid) Negative 01/23/18 12:15 73 woman with Sickle SC disease, HTN, presented with cough and vomiting in acute sickle cell crisis likely from URI. Problem List: Sickle SC disease Leukocytosis A/Plan: as per chart review: known SC disease, managed at [facility], on home opioid regime, apparently tightly controlled and monitored. Also attends Sickle clinic - Dr Mcintosh. Very few crisis related admissions - and few sickle related complications. Continue hydration, encourage PO hydration, neb treatments and O2 as needed Pain well controlled on current regimen continue folic acid supplementation and hydrea, h/h has been stable as per pt leucoytosis is at pt's baseline, as on routine labs she typically has a wbc of 14, she says it only goes higher when she is in crisis and has not been lower than that in the past continue abx as per ID, zithromax and ceftriaxone, started 01/22 (day 3) Pending chest CT reading
[2018-01-24 11:00] LABS: ANISOCYTOSIS 1+; MACROCYTOSIS 0; PLATELET ESTIMATE NORMAL; TARGET CELLS 2+
[2018-01-24] MEDS: DOCUSATE SODIUM 100 MG CAPSULE (FP) PO SCH (11:04)
[2018-01-24] MEDS: CHOLECALCIFEROL (VITAMIN D3) 1,000 UNIT TABLET (FP) PO SCH (11:04)
[2018-01-24] MEDS: LOSARTAN POTASSIUM 50 MG TABLET (FP) PO SCH (11:04)
[2018-01-24] MEDS: FOLIC ACID 1 MG TABLET (FP) PO SCH (11:05)
[2018-01-24] MEDS: oxyCODONE HCL 40 MG SUSTAINED ACTING TABLET PO SCH ×2 (11:05→22:28)
[2018-01-24] MEDS: APIXABAN 5 MG TABLET PO SCH ×2 (11:05→22:28)
[2018-01-24] MEDS: AZITHROMYCIN 250 MG TABLET PO SCH (11:05)
[2018-01-24] MEDS: CEFTRIAXONE 1 GM in DEXTROSE 5%-WATER - 50 ML IVPB SCH (11:06)
[2018-01-24] MEDS ORDERED: PT OWN MED DRAWER 7, Y5N ONE ×2 (11:13→22:26)
[2018-01-24] MEDS: BUDESONIDE/FORMETEROL FUMARATE 160/4.5 mcg INHALER IH SCH ×2 (11:21→22:27)
--- NOTE | 2018-01-24 13:48 | PN ---
Progress Note (short form) - Note Progress Note: PULMONARY States breathing better today. Less cough. No fevers or chills. Vital Signs Period Temp Pulse Resp BP Sys/Mnedez Pulse Ox Last 24 Hr 98.4 F-98.8 F 97-110 - 141-147/74-86 98 Gen: NAD at rest Heart: RRR Lung: basilar inspiratory rales Abd: soft, nontender Ext: no edema CBC, BMP 01/24/18 08:45 01/24/18 08:45 Active Medications Acetaminophen (Tylenol -) 1,000 mg PO Q6H PRN PRN Reason: FEVER Albuterol Sulfate (Ventolin 0.083% Nebulizer Soln -) 1 amp NEB Q4H PRN PRN Reason: SHORT OF BREATH/WHEEZING Albuterol/Ipratropium (Duoneb -) 1 amp NEB RQID [facility] Last Admin: 01/24/18 08:53 Dose: 1 amp Apixaban (Eliquis -) 5 mg PO BID [facility] Last Admin: 01/24/18 11:05 Dose: 5 mg Azithromycin (Zithromax -) 500 mg PO DAILY [facility] Last Admin: 01/24/18 11:05 Dose: 500 mg Budesonide/Formoterol Fumarate (Symbicort 160/4.5mcg -) 1 puff IH BID [facility] Last Admin: 01/24/18 11:21 Dose: 1 puff Chlorhexidine Gluconate (Peridex -) 480 ml MM HS [facility] Last Admin: 01/23/18 21:38 Dose: Not Given Cholecalciferol (Vitamin D3 -) 1,000 unit PO DAILY [facility] Last Admin: 01/24/18 11:04 Dose: 1,000 unit Docusate Sodium (Colace -) 100 mg PO DAILY [facility] Last Admin: 01/24/18 11:04 Dose: 100 mg Duloxetine HCl (Cymbalta -) 30 mg PO HS [facility] Last Admin: 01/23/18 21:36 Dose: 30 mg Folic Acid (Folic Acid -) 1 mg PO DAILY [facility] Last Admin: 01/24/18 11:05 Dose: 1 mg Gabapentin (Neurontin -) 300 mg PO HS [facility] Last Admin: 01/23/18 21:36 Dose: 300 mg Ceftriaxone Sodium 1 gm/ (Dextrose) 50 mls @ 200 mls/hr IVPB DAILY [facility]; Protocol Last Admin: 01/24/18 11:06 Dose: 200 mls/hr Losartan Potassium (Cozaar -) 50 mg PO DAILY [facility] Last Admin: 01/24/18 11:04 Dose: 50 mg Montelukast Sodium (Singulair -) 10 mg PO HS [facility] Last Admin: 01/23/18 21:36 Dose: 10 mg Morphine Sulfate (Morphine Sulfate) 2 mg IVPUSH Q6H PRN PRN Reason: PAIN LEVEL 7 - 10 Last Admin: 01/22/18 17:12 Dose: 2 mg Oxycodone HCl (Roxicodone -) 5 mg PO Q6H PRN PRN Reason: PAIN LEVEL 4 - 6 Oxycodone HCl (Oxycontin -) 40 mg PO BID [facility] Last Admin: 01/24/18 11:05 Dose: 40 mg A/P Sickle Cell Crisis Acute Asthma Exacerbation Atelectasis h/o PE HTN - continue empiric antibiotics - incentive spirometry - inhaled bronchodilators - O2 to keep SpO2 >90% - singulair - continue anticoagulation
--- NOTE | 2018-01-24 16:38 | PN ---
Teaching Attending Note Name of Resident: Lloyd Alvarado ATTENDING PHYSICIAN STATEMENT I saw and evaluated the patient. I reviewed the resident's note and discussed the case with the resident. I agree with the resident's findings and plan as documented. SUBJECTIVE: Patient seen and examined Clinically improved Minimal pain in LE Last Vital Signs Temp Pulse Resp BP Pulse Ox 98.8 F 101 H 18 141/86 98 01/24/18 10:00 01/24/18 10:00 01/24/18 10:00 01/24/18 10:00 01/23/18 21:00 HEENT: JOHN, EOM Intact Oropharynx: No thrush, No mucositis, dentures Cor: RSR, No murmurs, No gallops Lungs:scattered rhonchi Abd: Soft, Normal bowel sounds, No organomegaly Ext:No significant edema Skin: No rashes, Integument intact CBC, BMP 01/24/18 08:45 01/24/18 08:45 Current Medications Generic Name Dose Route Start Last Admin Trade Name Freq PRN Reason Stop Dose Admin Acetaminophen 1,000 mg 01/21/18 12:57 Tylenol - PO Q6H PRN FEVER Albuterol Sulfate 1 amp 01/21/18 12:45 Ventolin 0.083% Nebulizer Soln - NEB Q4H PRN SHORT OF BREATH/WHEEZING Albuterol/Ipratropium 1 amp 01/22/18 20:00 01/24/18 08:53 Duoneb - NEB 1 amp RQID [facility] Administration Apixaban 5 mg 01/22/18 13:30 01/24/18 11:05 Eliquis - PO 5 mg BID [facility] Administration Azithromycin 500 mg 01/22/18 10:15 01/24/18 11:05 Zithromax - PO 500 mg DAILY [facility] Administration Budesonide/Formoterol Fumarate 1 puff 01/21/18 12:45 01/24/18 11:21 Symbicort 160/4.5mcg - IH 1 puff BID SORAYA Administration Chlorhexidine Gluconate 480 ml 01/21/18 22:00 01/23/18 21:38 Peridex - MM Not Given HS SORAYA Cholecalciferol 1,000 unit 01/21/18 12:45 01/24/18 11:04 Vitamin D3 - PO 1,000 unit DAILY SORAYA Administration Docusate Sodium 100 mg 01/21/18 12:45 01/24/18 11:04 Colace - PO 100 mg DAILY SORAYA Administration Duloxetine HCl 30 mg 01/21/18 22:00 01/23/18 21:36 Cymbalta - PO 30 mg HS SORAYA Administration Folic Acid 1 mg 01/21/18 12:45 01/24/18 11:05 Folic Acid - PO 1 mg DAILY SORAYA Administration Gabapentin 300 mg 01/21/18 22:00 01/23/18 21:36 Neurontin - PO 300 mg HS SORAYA Administration Ceftriaxone Sodium 1 gm/ 50 mls @ 200 mls/hr 01/22/18 10:45 01/24/18 11:06 Dextrose IVPB 200 mls/hr DAILY SORAYA Administration Protocol Losartan Potassium 50 mg 01/21/18 12:45 01/24/18 11:04 Cozaar - PO 50 mg DAILY SORAYA Administration Montelukast Sodium 10 mg 01/21/18 22:00 01/23/18 21:36 Singulair - PO 10 mg HS SORAYA Administration Morphine Sulfate 2 mg 01/21/18 12:45 01/22/18 17:12 Morphine Sulfate IVPUSH 2 mg Q6H PRN Administration PAIN LEVEL 7 - 10 Oxycodone HCl 5 mg 01/21/18 12:45 Roxicodone - PO Q6H PRN PAIN LEVEL 4 - 6 Oxycodone HCl 40 mg 01/23/18 22:00 01/24/18 11:05 Oxycontin - PO 40 mg BID SORAYA Administration Impression: SC disease Painful crisis - improved CHest CT - unchanged from 12/2015- elevtaed right hemidiaphragm, basilar atelectasis and brochiectatic changes. Can consider transition to p.o. antibiotics 01/25 in anticipation of discharge in next day or 2. OBJECTIVE: ASSESSMENT AND PLAN:
--- NOTE | 2018-01-24 18:05 | PN ---
Progress Note (short form) - Note Progress Note: cough and wheezing improved chest ct-mild bibasilar bronchiectasis Vital Signs Period Temp Pulse Resp BP Sys/Mendez Pulse Ox Last 24 Hr 98.3 F-98.8 F 97-101 18-20 131-142/74-86 98 cor-rrr lungs rare wheeze abd soft,nt ext no edema CBC, BMP 01/24/18 08:45 01/24/18 08:45 Microbiology 01/21/18 10:00 Blood - Peripheral Venous Blood Culture - Preliminary NO GROWTH OBTAINED AFTER 72 HOURS, INCUBATION TO CONTINUE FOR 2 DAYS. 01/21/18 10:20 Blood - Peripheral Venous Blood Culture - Preliminary NO GROWTH OBTAINED AFTER 72 HOURS, INCUBATION TO CONTINUE FOR 2 DAYS. 01/22/18 10:58 Urine - Urine Clean Catch Urine Culture - Final NO GROWTH OBTAINED 01/22/18 11:00 Urine For Antigen Detection Legionella Antigen - Final- negative 01/22/18 11:00 Urine For Antigen Detection Streptococcus pneumoniae Antigen (M - Final-negative influenza screen negative a/p bronchitis- improved, day #3 rocephin/zithromax switch to ceftin finish 7 days sickle cell crisis improved Problem List - Problems (1) COPD exacerbation Code(s): J44.1 - CHRONIC OBSTRUCTIVE PULMONARY DISEASE W (ACUTE) EXACERBATION (2) Sickle cell anemia with pain Code(s): D57.00 - HB-SS DISEASE WITH CRISIS, UNSPECIFIED (3) Pneumonia Code(s): J18.9 - PNEUMONIA, UNSPECIFIED ORGANISM
[2018-01-24] MEDS: MONTELUKAST NA 10 MG TABLET PO SCH (22:28)
[2018-01-24] MEDS: GABAPENTIN 300 MG CAPSULE (FP) PO SCH (22:28)
[2018-01-24] MEDS: DULoxetine HCL 30 MG CAPSULE.DR (FP) PO SCH (22:28)
[2018-01-24] MEDS: CHLORHEXIDINE GLUCONATE 0.12% 15ML CUP MM SCH (22:29)
[2018-01-25 08:21] LABS: ALBUMIN 2.7 g/dl (3.4-5.0); ALK PHOS 99 U/L (45-117); ANION GAP 6 MMOL/L (8-16); BILIRUBIN,TOTAL 0.3 mg/dL (0.2-1); BLOOD UREA NITROGEN 8 mg/dL (7-18); CALCIUM 8.2 mg/dL (8.5-10.1); CHLORIDE 105 mmol/L (98-107); CO2 29 mmol/L (21-32); CREATININE 0.8 mg/dL (0.55-1.3); GLUCOSE,RANDOM 110 mg/dL (74-106); SGOT/AST 16 U/L (15-37); SGPT/ALT 8 U/L (13-61); SODIUM 140 mmol/L (136-145); TOT PROT 7.2 g/dl (6.4-8.2)
[2018-01-25] MEDS: ALBUTEROL SO4 2.5/IPRATROPIUM 0.5 INH SOL 3 ML VIAL.NEB. NEB SCH ×4 (08:30→21:00)
[2018-01-25 09:08] LABS: HEMATOCRIT 30.9 % (32.4-45.2); MCH 25.9 pg (25.7-33.7); MCHC 32.3 g/dl (32.0-36.0); MEAN CELL VOLUME 80.1 fl (80-96); MEAN PLT VOLUME 8.5 fl (7.5-11.1); PLATELET COUNT 301 K/MM3 (134-434); RBC 3.86 M/mm3 (3.60-5.2); RDW 20.5 % (11.6-15.6)
[2018-01-25] MEDS ORDERED: PT OWN MED DRAWER 7, Y5N ONE ×3 (10:04→18:22)
[2018-01-25] MEDS: DOCUSATE SODIUM 100 MG CAPSULE (FP) PO SCH (10:20)
[2018-01-25] MEDS: FOLIC ACID 1 MG TABLET (FP) PO SCH (10:21)
[2018-01-25] MEDS: APIXABAN 5 MG TABLET PO SCH ×2 (10:21→23:09)
[2018-01-25] MEDS: CHOLECALCIFEROL (VITAMIN D3) 1,000 UNIT TABLET (FP) PO SCH (10:21)
[2018-01-25] MEDS: LOSARTAN POTASSIUM 50 MG TABLET (FP) PO SCH (10:21)
[2018-01-25] MEDS: oxyCODONE HCL 40 MG SUSTAINED ACTING TABLET PO SCH ×2 (10:22→23:08)
[2018-01-25] MEDS: CEFUROXIME AXETIL 500 MG TABLET PO SCH ×2 (10:22→23:10)
[2018-01-25] MEDS: BUDESONIDE/FORMETEROL FUMARATE 160/4.5 mcg INHALER IH SCH ×2 (10:23→23:05)
[2018-01-25 12:24] LABS: ANISOCYTOSIS 0; MACROCYTOSIS 0; PLATELET ESTIMATE NORMAL; TARGET CELLS 2+
--- NOTE | 2018-01-25 12:25 | PN ---
Progress Note (short form) - Note Progress Note: Renal follow up for GUCCI Pt seen and examined at the bedside no acute complaints would like to go home no pain at the present time Vital Signs Temperature 97.7 F 01/25/18 06:00 Pulse Rate 102 H 01/25/18 06:00 Respiratory Rate 20 01/25/18 06:00 Blood Pressure 138/76 01/25/18 06:00 O2 Sat by Pulse Oximetry (%) 95 01/24/18 21:00 Intake & Output 01/22/18 01/23/18 01/24/18 01/25/18 23:59 23:59 23:59 23:59 Intake Total 1255 1130 600 Balance 1255 1130 600 NAD Neck supple no LE edema CBC, BMP 01/25/18 06:15 01/25/18 06:15 Current Medications Acetaminophen (Tylenol -) 1,000 mg PO Q6H PRN PRN Reason: FEVER Albuterol Sulfate (Ventolin 0.083% Nebulizer Soln -) 1 amp NEB Q4H PRN PRN Reason: SHORT OF BREATH/WHEEZING Last Admin: 01/25/18 04:42 Dose: 1 amp Albuterol/Ipratropium (Duoneb -) 1 amp NEB RQID [facility] Last Admin: 01/25/18 08:30 Dose: 1 amp Apixaban (Eliquis -) 5 mg PO BID [facility] Last Admin: 01/25/18 10:21 Dose: 5 mg Budesonide/Formoterol Fumarate (Symbicort 160/4.5mcg -) 1 puff IH BID [facility] Last Admin: 01/25/18 10:23 Dose: 1 puff Cefuroxime Axetil (Ceftin -) 500 mg PO BID [facility] Last Admin: 01/25/18 10:22 Dose: 500 mg Chlorhexidine Gluconate (Peridex -) 480 ml MM HS [facility] Last Admin: 01/24/18 22:29 Dose: 480 ml Cholecalciferol (Vitamin D3 -) 1,000 unit PO DAILY [facility] Last Admin: 01/25/18 10:21 Dose: 1,000 unit Docusate Sodium (Colace -) 100 mg PO DAILY [facility] Last Admin: 01/25/18 10:20 Dose: 100 mg Duloxetine HCl (Cymbalta -) 30 mg PO HS [facility] Last Admin: 01/24/18 22:28 Dose: 30 mg Folic Acid (Folic Acid -) 1 mg PO DAILY [facility] Last Admin: 01/25/18 10:21 Dose: 1 mg Gabapentin (Neurontin -) 300 mg PO HS [facility] Last Admin: 01/24/18 22:28 Dose: 300 mg Losartan Potassium (Cozaar -) 50 mg PO DAILY [facility] Last Admin: 01/25/18 10:21 Dose: 50 mg Montelukast Sodium (Singulair -) 10 mg PO HS [facility] Last Admin: 01/24/18 22:28 Dose: 10 mg Morphine Sulfate (Morphine Sulfate) 2 mg IVPUSH Q6H PRN PRN Reason: PAIN LEVEL 7 - 10 Last Admin: 01/22/18 17:12 Dose: 2 mg Oxycodone HCl (Roxicodone -) 5 mg PO Q6H PRN PRN Reason: PAIN LEVEL 4 - 6 Oxycodone HCl (Oxycontin -) 40 mg PO BID [facility] Last Admin: 01/25/18 10:22 Dose: 40 mg 73 year old AA woman with hx of Sickle Cell disease, Hypertension, COPD who presented groin pain and admitted with sick cell crisis with GUCCI. #GUCCI secondary to volume depletion vs. renal infarction in setting of SCD #Sickle cell crisis #Hypertension #Anemia Renal function improved and stable would recommend withholding HCTZ on discharge to prevent hypovolemia/ dehydration continue oral abx as per ID can follow up with primary care on discharge. Enrique Flores DO
--- NOTE | 2018-01-25 14:11 | PN ---
Progress Note (short form) - Note Progress Note: PULMONARY Feels improved but not at baseline. States breathing continues to improve. Less cough. No fevers or chills. Vital Signs Period Temp Pulse Resp BP Sys/Mendez Pulse Ox Last 24 Hr 97.7 F-98.3 F 98-103 20-20 131-141/73-76 95 Gen: NAD at rest Heart: RRR Lung: basilar inspiratory rales Abd: soft, nontender Ext: no edema CBC, BMP 01/25/18 06:15 01/25/18 06:15 Active Medications Acetaminophen (Tylenol -) 1,000 mg PO Q6H PRN PRN Reason: FEVER Albuterol Sulfate (Ventolin 0.083% Nebulizer Soln -) 1 amp NEB Q4H PRN PRN Reason: SHORT OF BREATH/WHEEZING Last Admin: 01/25/18 04:42 Dose: 1 amp Albuterol/Ipratropium (Duoneb -) 1 amp NEB RQID [facility] Last Admin: 01/25/18 08:30 Dose: 1 amp Apixaban (Eliquis -) 5 mg PO BID [facility] Last Admin: 01/25/18 10:21 Dose: 5 mg Budesonide/Formoterol Fumarate (Symbicort 160/4.5mcg -) 1 puff IH BID [facility] Last Admin: 01/25/18 10:23 Dose: 1 puff Cefuroxime Axetil (Ceftin -) 500 mg PO BID [facility] Last Admin: 01/25/18 10:22 Dose: 500 mg Chlorhexidine Gluconate (Peridex -) 480 ml MM HS [facility] Last Admin: 01/24/18 22:29 Dose: 480 ml Cholecalciferol (Vitamin D3 -) 1,000 unit PO DAILY [facility] Last Admin: 01/25/18 10:21 Dose: 1,000 unit Docusate Sodium (Colace -) 100 mg PO DAILY [facility] Last Admin: 01/25/18 10:20 Dose: 100 mg Duloxetine HCl (Cymbalta -) 30 mg PO HS [facility] Last Admin: 01/24/18 22:28 Dose: 30 mg Folic Acid (Folic Acid -) 1 mg PO DAILY [facility] Last Admin: 01/25/18 10:21 Dose: 1 mg Gabapentin (Neurontin -) 300 mg PO HS [facility] Last Admin: 12/18/18 22:28 Dose: 300 mg Losartan Potassium (Cozaar -) 50 mg PO DAILY [facility] Last Admin: 01/25/18 10:21 Dose: 50 mg Montelukast Sodium (Singulair -) 10 mg PO HS [facility] Last Admin: 01/24/18 22:28 Dose: 10 mg Morphine Sulfate (Morphine Sulfate) 2 mg IVPUSH Q6H PRN PRN Reason: PAIN LEVEL 7 - 10 Last Admin: 01/22/18 17:12 Dose: 2 mg Oxycodone HCl (Roxicodone -) 5 mg PO Q6H PRN PRN Reason: PAIN LEVEL 4 - 6 Oxycodone HCl (Oxycontin -) 40 mg PO BID [facility] Last Admin: 01/25/18 10:22 Dose: 40 mg A/P Sickle Cell Crisis Acute Asthma Exacerbation Atelectasis h/o PE HTN - complete empiric antibiotics - incentive spirometry - inhaled bronchodilators - O2 to keep SpO2 >90% - singulair - continue anticoagulation - can d/c home from pulmonary standpoint
--- NOTE | 2018-01-25 17:49 | PN ---
Progress Note (short form) - Note Progress Note: Patient seen and examined Feels improved Feels well enough to be discharged Denies pain Last Vital Signs Temp Pulse Resp BP Pulse Ox 98.6 F 102 H 20 136/80 95 01/25/18 14:15 01/25/18 14:15 01/25/18 14:15 01/25/18 14:15 01/24/18 21:00 HEENT: JOHN, EOM Intact Oropharynx: No thrush, No mucositis CBC, BMP 01/25/18 06:15 01/25/18 06:15 Current Medications Generic Name Dose Route Start Last Admin Trade Name Freq PRN Reason Stop Dose Admin Acetaminophen 1,000 mg 01/21/18 12:57 Tylenol - PO Q6H PRN FEVER Albuterol Sulfate 1 amp 01/21/18 12:45 01/25/18 04:42 Ventolin 0.083% Nebulizer Soln - NEB 1 amp Q4H PRN Administration SHORT OF BREATH/WHEEZING Albuterol/Ipratropium 1 amp 01/22/18 20:00 01/25/18 16:29 Duoneb - NEB 1 amp RQID [facility] Administration Apixaban 5 mg 01/22/18 13:30 01/25/18 10:21 Eliquis - PO 5 mg BID [facility] Administration Budesonide/Formoterol Fumarate 1 puff 01/21/18 12:45 01/25/18 10:23 Symbicort 160/4.5mcg - IH 1 puff BID [facility] Administration Cefuroxime Axetil 500 mg 01/25/18 10:00 01/25/18 10:22 Ceftin - PO 500 mg BID [facility] Administration Chlorhexidine Gluconate 480 ml 01/21/18 22:00 01/24/18 22:29 Peridex - MM 480 ml HS [facility] Administration Cholecalciferol 1,000 unit 01/21/18 12:45 01/25/18 10:21 Vitamin D3 - PO 1,000 unit DAILY [facility] Administration Docusate Sodium 100 mg 01/21/18 12:45 01/25/18 10:20 Colace - PO 100 mg DAILY [facility] Administration Duloxetine HCl 30 mg 01/21/18 22:00 01/24/18 22:28 Cymbalta - PO 30 mg HS [facility] Administration Folic Acid 1 mg 01/21/18 12:45 01/25/18 10:21 Folic Acid - PO 1 mg DAILY [facility] Administration Gabapentin 300 mg 01/21/18 22:00 01/24/18 22:28 Neurontin - PO 300 mg HS [facility] Administration Losartan Potassium 50 mg 01/21/18 12:45 01/25/18 10:21 Cozaar - PO 50 mg DAILY [facility] Administration Montelukast Sodium 10 mg 01/21/18 22:00 01/24/18 22:28 Singulair - PO 10 mg HS [facility] Administration Morphine Sulfate 2 mg 01/21/18 12:45 01/22/18 17:12 Morphine Sulfate IVPUSH 2 mg Q6H PRN Administration PAIN LEVEL 7 - 10 Oxycodone HCl 5 mg 01/21/18 12:45 Roxicodone - PO Q6H PRN PAIN LEVEL 4 - 6 Oxycodone HCl 40 mg 01/23/18 22:00 01/25/18 10:22 Oxycontin - PO 40 mg BID [facility] Administration Cor: RSR, No murmurs, No gallops Lungs: few crackles left base Abd: Soft, Normal bowel sounds, No organomegaly Ext:No significant edema Skin: No rashes, Integument intact Impression: Sickle cell painful crisis- resolved Pretty much back to baseline Leucocytosis - usually part of underlying disease and not necessarily reflective of infection. Can consider discharge on folate and oral antibiotics with follow up at [facility].
--- NOTE | 2018-01-25 18:00 | PN ---
Progress Note, Physician Chief Complaint: R GROIN PAIN, SICKLE CELL CRISIS History of Present Illness: PREVIOUS NOTES AND EVENTS REVIEWED AWAKE AND ALERT, NAD DENIES COMPLAINTS OF PAIN OR CHEST PAIN - Current Medication List Current Medications: Active Medications Acetaminophen (Tylenol -) 1,000 mg PO Q6H PRN PRN Reason: FEVER Albuterol Sulfate (Ventolin 0.083% Nebulizer Soln -) 1 amp NEB Q4H PRN PRN Reason: SHORT OF BREATH/WHEEZING Last Admin: 01/25/18 04:42 Dose: 1 amp Albuterol/Ipratropium (Duoneb -) 1 amp NEB RQID [facility] Last Admin: 01/25/18 16:29 Dose: 1 amp Apixaban (Eliquis -) 5 mg PO BID [facility] Last Admin: 01/25/18 10:21 Dose: 5 mg Budesonide/Formoterol Fumarate (Symbicort 160/4.5mcg -) 1 puff IH BID [facility] Last Admin: 01/25/18 10:23 Dose: 1 puff Cefuroxime Axetil (Ceftin -) 500 mg PO BID [facility] Last Admin: 01/25/18 10:22 Dose: 500 mg Chlorhexidine Gluconate (Peridex -) 480 ml MM HS [facility] Last Admin: 01/24/18 22:29 Dose: 480 ml Cholecalciferol (Vitamin D3 -) 1,000 unit PO DAILY [facility] Last Admin: 01/25/18 10:21 Dose: 1,000 unit Docusate Sodium (Colace -) 100 mg PO DAILY [facility] Last Admin: 01/25/18 10:20 Dose: 100 mg Duloxetine HCl (Cymbalta -) 30 mg PO HS [facility] Last Admin: 01/24/18 22:28 Dose: 30 mg Folic Acid (Folic Acid -) 1 mg PO DAILY [facility] Last Admin: 01/25/18 10:21 Dose: 1 mg Gabapentin (Neurontin -) 300 mg PO HS [facility] Last Admin: 01/24/18 22:28 Dose: 300 mg Losartan Potassium (Cozaar -) 50 mg PO DAILY [facility] Last Admin: 01/25/18 10:21 Dose: 50 mg Montelukast Sodium (Singulair -) 10 mg PO HS [facility] Last Admin: 01/24/18 22:28 Dose: 10 mg Morphine Sulfate (Morphine Sulfate) 2 mg IVPUSH Q6H PRN PRN Reason: PAIN LEVEL 7 - 10 Last Admin: 01/22/18 17:12 Dose: 2 mg Oxycodone HCl (Roxicodone -) 5 mg PO Q6H PRN PRN Reason: PAIN LEVEL 4 - 6 Oxycodone HCl (Oxycontin -) 40 mg PO BID [facility] Last Admin: 01/25/18 10:22 Dose: 40 mg - Objective Vital Signs: Vital Signs Temperature 98.6 F 01/25/18 14:15 Pulse Rate 102 H 01/25/18 14:15 Respiratory Rate 20 01/25/18 14:15 Blood Pressure 136/80 01/25/18 14:15 O2 Sat by Pulse Oximetry (%) 95 01/24/18 21:00 Constitutional: Yes: Well Nourished, No Distress Neck: Yes: Supple Cardiovascular: Yes: Regular Rate and Rhythm Respiratory: Yes: Wheezes Gastrointestinal: Yes: Normal Bowel Sounds, Soft, Abdomen, Obese Musculoskeletal: Yes: WNL Extremities: Yes: WNL Edema: No Peripheral Pulses WNL: Yes Neurological: Yes: Alert, Oriented Psychiatric: Yes: Alert, Oriented Labs: CBC, BMP 01/25/18 06:15 01/25/18 06:15 INR, PTT INR 1.32 (0.83-1.09) H 01/21/18 12:10 Problem List - Problems (1) Asthma Code(s): J45.909 - UNSPECIFIED ASTHMA, UNCOMPLICATED (2) Sickle cell crisis Code(s): D57.00 - HB-SS DISEASE WITH CRISIS, UNSPECIFIED (3) COPD (chronic obstructive pulmonary disease) with chronic bronchitis Code(s): J44.9 - CHRONIC OBSTRUCTIVE PULMONARY DISEASE, UNSPECIFIED (4) HTN (hypertension) Code(s): I10 - ESSENTIAL (PRIMARY) HYPERTENSION Qualifiers: Hypertension type: essential hypertension Qualified Code(s): I10 - Essential (primary) hypertension Assessment/Plan CONT PO ABT, IF TOLERATE PO ABT AND NO ADVERSE REACTION CAN D/C HOME TOMORROW IN AM CONT WITH BRONCHODILATERS AND O2 THERAPY, O2 SAT >90% ON AC PAIN CONTROL
[2018-01-25] MEDS: CHLORHEXIDINE GLUCONATE 0.12% 15ML CUP MM SCH (23:05)
[2018-01-25] MEDS: DULoxetine HCL 30 MG CAPSULE.DR (FP) PO SCH (23:08)
[2018-01-25] MEDS: GABAPENTIN 300 MG CAPSULE (FP) PO SCH (23:09)
[2018-01-25] MEDS: MONTELUKAST NA 10 MG TABLET PO SCH (23:09)
[2018-01-26] MEDS ORDERED: PT OWN MED DRAWER 7, Y5N ONE ×2 (07:22→10:40)
[2018-01-26] MEDS: ALBUTEROL SO4 2.5/IPRATROPIUM 0.5 INH SOL 3 ML VIAL.NEB. NEB SCH ×2 (07:37→11:08)
[2018-01-26 08:05] LABS: BASO % 0.8 % (0-2.0); EOS % 4.3 % (0-4.5); HEMATOCRIT 33.2 % (32.4-45.2); HEMOGLOBIN 11.2 GM/dL (10.7-15.3); LYMPH % 37.8 % (8-40); MCH 26.8 pg (25.7-33.7); MCHC 33.8 g/dl (32.0-36.0); MEAN CELL VOLUME 79.4 fl (80-96); MEAN PLT VOLUME 8.8 fl (7.5-11.1); MONO % 5.9 % (3.8-10.2); NEUT % 51.2 % (42.8-82.8); PLATELET COUNT 330 K/MM3 (134-434); RBC 4.19 M/mm3 (3.60-5.2); RDW 20.8 % (11.6-15.6); WHITE BLOOD COUNT 16.1 K/mm3 (4.0-10.0)
[2018-01-26 08:07] LABS: ALBUMIN 3.2 g/dl (3.4-5.0); ALK PHOS 107 U/L (45-117); ANION GAP 5 MMOL/L (8-16); BILIRUBIN,TOTAL 0.5 mg/dL (0.2-1); BLOOD UREA NITROGEN 10 mg/dL (7-18); CALCIUM 8.3 mg/dL (8.5-10.1); CHLORIDE 105 mmol/L (98-107); CO2 28 mmol/L (21-32); CREATININE 0.9 mg/dL (0.55-1.3); GLUCOSE,RANDOM 95 mg/dL (74-106); POTASSIUM 4.6 mmol/L (3.5-5.1); SGOT/AST 18 U/L (15-37); SGPT/ALT 8 U/L (13-61); SODIUM 138 mmol/L (136-145); TOT PROT 8.1 g/dl (6.4-8.2)
--- NOTE | 2018-01-26 10:05 | PN ---
Progress Note (short form) - Note Progress Note: PULMONARY Mild leg pain today. Denies shortness of breath or chest pain. Less cough. No fevers or chills. Vital Signs Period Temp Pulse Resp BP Sys/Mendez Pulse Ox Last 24 Hr 98 F-98.6 F 95-105 20-20 136-145/80-87 95 Gen: NAD at rest Heart: RRR Lung: decreased breath sounds at the bases Abd: soft, nontender Ext: no edema CBC, BMP 01/26/18 06:30 01/26/18 06:30 Active Medications Acetaminophen (Tylenol -) 1,000 mg PO Q6H PRN PRN Reason: FEVER Albuterol Sulfate (Ventolin 0.083% Nebulizer Soln -) 1 amp NEB Q4H PRN PRN Reason: SHORT OF BREATH/WHEEZING Last Admin: 01/25/18 04:42 Dose: 1 amp Albuterol/Ipratropium (Duoneb -) 1 amp NEB RQID [facility] Last Admin: 01/26/18 07:37 Dose: 1 amp Apixaban (Eliquis -) 5 mg PO BID [facility] Last Admin: 01/25/18 23:09 Dose: 5 mg Budesonide/Formoterol Fumarate (Symbicort 160/4.5mcg -) 1 puff IH BID [facility] Last Admin: 01/25/18 23:05 Dose: 1 puff Cefuroxime Axetil (Ceftin -) 500 mg PO BID [facility] Last Admin: 01/25/18 23:10 Dose: 500 mg Chlorhexidine Gluconate (Peridex -) 480 ml MM HS [facility] Last Admin: 01/25/18 23:05 Dose: 480 ml Cholecalciferol (Vitamin D3 -) 1,000 unit PO DAILY [facility] Last Admin: 01/25/18 10:21 Dose: 1,000 unit Docusate Sodium (Colace -) 100 mg PO DAILY [facility] Last Admin: 01/25/18 10:20 Dose: 100 mg Duloxetine HCl (Cymbalta -) 30 mg PO HS [facility] Last Admin: 01/25/18 23:08 Dose: 30 mg Folic Acid (Folic Acid -) 1 mg PO DAILY [facility] Last Admin: 01/25/18 10:21 Dose: 1 mg Gabapentin (Neurontin -) 300 mg PO HS [facility] Last Admin: 01/25/18 23:09 Dose: 300 mg Losartan Potassium (Cozaar -) 50 mg PO DAILY [facility] Last Admin: 01/25/18 10:21 Dose: 50 mg Montelukast Sodium (Singulair -) 10 mg PO HS [facility] Last Admin: 01/25/18 23:09 Dose: 10 mg Morphine Sulfate (Morphine Sulfate) 2 mg IVPUSH Q6H PRN PRN Reason: PAIN LEVEL 7 - 10 Last Admin: 01/22/18 17:12 Dose: 2 mg Oxycodone HCl (Roxicodone -) 5 mg PO Q6H PRN PRN Reason: PAIN LEVEL 4 - 6 Oxycodone HCl (Oxycontin -) 40 mg PO BID [facility] Last Admin: 01/25/18 23:08 Dose: 40 mg A/P Sickle Cell Crisis Acute Asthma Exacerbation Atelectasis h/o PE HTN - complete empiric antibiotics - incentive spirometry - inhaled bronchodilators - O2 to keep SpO2 >90% - singulair - continue anticoagulation - can d/c home from pulmonary standpoint
--- NOTE | 2018-01-26 10:30 | DS ---
Physical Examination Vital Signs: Vital Signs Temperature 98.4 F 01/26/18 05:49 Pulse Rate 95 H 01/26/18 05:49 Respiratory Rate 20 01/26/18 05:49 Blood Pressure 145/85 01/26/18 05:49 O2 Sat by Pulse Oximetry (%) 95 01/25/18 23:30 Constitutional: Yes: Calm Cardiovascular: Yes: Regular Rate and Rhythm, S1, S2 Respiratory: Yes: CTA Bilaterally Gastrointestinal: Yes: Normal Bowel Sounds, Soft Edema: No Neurological: Yes: Alert, Oriented Labs: CBC, BMP 01/26/18 06:30 01/26/18 06:30 Discharge Summary Reason For Visit: SICKLE CELL DISEASE, SEPSIS Current Active Problems Asthma (Acute) Asthma attack (Acute) Elevated serum creatinine (Acute) Hypokalemia (Acute) Pneumonia (Acute) Pulmonary embolism and infarction (Acute) Pulmonary embolism during treatment with long-term anticoagulation therapy ( Acute) Sepsis (Acute) Sickle cell anemia with pain (Acute) Sickle cell crisis (Acute) Hospital Course: - Primary Care Physician PCP: Javed Wilkinson Ammir) - Admission Chief Complaint: Sickle cell crisis History of Present Illness: Ami Flaherty is a 73yo woman with a PMH of sickle cell disease, COPD, and HTN who presents reporting right groin pain since this morning that she states is "sickle cell pain." She says this pain is "20/10" constant, and non- radiating. Ms Flaherty also says that she's had this pain many times and knows what it is. She took her normal 40mg extended release oxycodone as well as her PRN immediate release 30mg oxycodone at home without improvement. She does also note mid-back pain across the entire back, present for weeks, that improved with the pain medications. She had an appointment with orthopedics this past week and was told that a "pin" from a prior surgery had become displaced; she is following up with her PMD regarding the back pain and is not concerned about it today. Also of note, Ms Flaherty's triage report lists SOB as her chief complaint, but she states that her breathing is at baseline today. She used her albuterol treatment last night with some improvement but due to the groin pain did not use the albuterol today; she endorses needing a breathing treatment currently but says she is not feeling particularly short of breath. She says that she told "the lady outside" that she was "always short of breath." Ms Flaherty denies any recent increased cough, chest pain, fever/chills, nausea/ vomiting, or change in bowel habits. She has been taking all of her medications as prescribed. She does endorse urinary urgency but says it has been present for "months" and she has an appointment with nephrology on the . She has otherwise been feeling at her baseline recently. during hospital course IVF and iv abx, folate seen by pulmonary ,ID and heme and renal team stop hctz continue abx for another 3 days continue AC and pain control FU at sickle cell center Condition: Stable - Instructions Referrals: Javed Wilkinson MD [Primary Care Provider] - Disposition: HOME - Home Medications Comprehensive Discharge Medication List: Ambulatory Orders Folic Acid - 1 mg PO DAILY 02/11/13 Docusate Sodium [Colace -] 100 mg PO DAILY 04/06/15 Montelukast Na [Singulair -] 10 mg PO HS 04/06/15 Budesonide/Formeterol Fumarate [SYMBICORT 160/4.5mcg -] 1 inh PO BID 08/19/15 Cholecalciferol (Vitamin D3) [Vitamin D3 -] 1,000 unit PO DAILY 08/19/15 Ipratropium/Albuterol Sulfate [Combivent Respimat 20-100 Mcg] 1 inh IH Q4H PRN 08/19/15 Acetaminophen [Tylenol .Extra-Strength -] 1,000 mg PO Q8H PRN #0 tablet Apixaban [Eliquis] 2.5 mg PO DAILY 11/19/15 Chlorhexidine Gluconate 480 ml MM HS #1 mouthwash 11/25/15 Albuterol Sulfate [Proair Hfa] 2 inh IH QID PRN 01/21/18 Apixaban [Eliquis] 5 mg PO DAILY 01/21/18 Duloxetine HCl 30 mg PO HS 01/21/18 Duloxetine HCl 60 mg PO BID 01/21/18 Gabapentin 300 mg PO HS 01/21/18 Gabapentin [Neurontin] 100 mg PO HS 01/21/18 Hydrochlorothiazide [Hctz -] 12.5 mg PO BID 01/21/18 Losartan Potassium [Cozaar -] 50 mg PO DAILY 01/21/18 Oxycodone HCl [Oxycontin] 40 mg PO QID PRN 01/21/18
[2018-01-26] MEDS: CHOLECALCIFEROL (VITAMIN D3) 1,000 UNIT TABLET (FP) PO SCH (10:41)
[2018-01-26] MEDS: LOSARTAN POTASSIUM 50 MG TABLET (FP) PO SCH (10:42)
[2018-01-26] MEDS: APIXABAN 5 MG TABLET PO SCH (10:42)
[2018-01-26] MEDS: FOLIC ACID 1 MG TABLET (FP) PO SCH (10:42)
[2018-01-26] MEDS: DOCUSATE SODIUM 100 MG CAPSULE (FP) PO SCH (10:42)
[2018-01-26] MEDS: CEFUROXIME AXETIL 500 MG TABLET PO SCH (10:42)
[2018-01-26] MEDS: BUDESONIDE/FORMETEROL FUMARATE 160/4.5 mcg INHALER IH SCH (10:43)
[2018-01-26] MEDS: oxyCODONE HCL 40 MG SUSTAINED ACTING TABLET PO SCH (10:54)
[2018-01-26 14:42] VITALS: BP 158/66; PULSE 95; TEMP 98.7
== END 2018-01-26 15:15 | disposition home or self-care (01) | DRG 811 ==
LOC: JER 08:45 → JERBED 12:32 → J8W 14:14
PROVIDERS: ADMIT Family Medicine; ATTEND Family Medicine
DX: D57.00 Hb-SS disease with crisis, unspecified (principal); J18.9 Pneumonia, unspecified organism; N17.9 Acute kidney failure, unspecified; J44.1 Chronic obstructive pulmonary disease with (acute) exacerbation; J45.901 Unspecified asthma with (acute) exacerbation; J98.11 Atelectasis; I10 Essential (primary) hypertension; E87.6 Hypokalemia; Z86.711 Personal history of pulmonary embolism; Z79.01 Long term (current) use of anticoagulants; Z88.0 Allergy status to penicillin; D64.9 Anemia, unspecified; E66.9 Obesity, unspecified; D72.829 Elevated white blood cell count, unspecified; Z68.28 Body mass index [BMI] 28.0-28.9, adult
CPT/HCPCS: 36415; 71046-TC-FY; 71250-TC; 76775-TC; 80053; 81003; 81015; 82550; 82570; 82728; 82803; 83036; 83540; 83550; 83605; 83880; 84100; 84156; 84300; 84484; 84540; 85025; 85044; 85610; 85730; 87040; 87086; 87804; 87899; 93005; 93010; 94640; 97116-GP; 97161-GP; 99283-25; J7030

== ENCOUNTER 2018-05-20 16:09 | Inpatient (IN) | payer OTHER ==
--- NOTE | 2018-05-20 16:37 | PDOC ---
History of Present Illness - General Chief Complaint: Respiratory Stated Complaint: chest pain Time Seen by Provider: 05/20/18 16:20 - History of Present Illness Initial Comments: 05/20/18 16:36 Ms. Flaherty is a 73 yo female w/ pmh of SCD, COPD, prior PE, and HTN recently admitted 01/21-01/26 for sickle cell crisis who presents for evaluation 3 day history of cough. Cough has been productive of dark green sputum and has been associated with dull, pleuritic chest pain in the middle of her chest. She has additionally had increased dyspnea on exertion. The patient denies headache and dizziness. Denies fever, chills, nausea, vomit, diarrhea and constipation. Denies dysuria, frequency, urgency and hematuria. Past History - Past Medical History Allergies/Adverse Reactions: Allergies Allergy/AdvReac Type Severity Reaction Status Date / Time ciprofloxacin [From Cipro] Allergy Itching Verified 01/21/18 08:48 ciprofloxacin HCl Allergy Itching Verified 01/21/18 08:48 [From Cipro] codeine [Codeine] Allergy Verified 01/21/18 08:48 levofloxacin [From Levaquin] Allergy Itching Verified 01/21/18 08:48 Penicillins Allergy Itching Verified 01/21/18 08:48 Sulfa (Sulfonamide Allergy Verified 01/21/18 08:48 Antibiotics) tetanus immune globulin Allergy Verified 01/21/18 08:48 IV DYE Allergy Uncoded 01/21/18 08:48 Home Medications: Ambulatory Orders Folic Acid - 1 mg PO DAILY 02/11/13 Docusate Sodium [Colace -] 100 mg PO DAILY 04/06/15 Montelukast Na [Singulair -] 10 mg PO HS 04/06/15 Budesonide/Formeterol Fumarate [SYMBICORT 160/4.5mcg -] 1 inh PO BID 08/19/15 Cholecalciferol (Vitamin D3) [Vitamin D3 -] 1,000 unit PO DAILY 08/19/15 Ipratropium/Albuterol Sulfate [Combivent Respimat 20-100 Mcg] 1 inh IH Q4H PRN 08/19/15 Acetaminophen [Tylenol .Extra-Strength -] 1,000 mg PO Q8H PRN #0 tablet Chlorhexidine Gluconate 480 ml MM HS #1 mouthwash 11/25/15 Albuterol Sulfate [Proair Hfa] 2 inh IH QID PRN 01/21/18 Duloxetine HCl 30 mg PO HS 01/21/18 Gabapentin 300 mg PO HS 01/21/18 Losartan Potassium [Cozaar -] 50 mg PO DAILY 01/21/18 Apixaban [Eliquis -] 5 mg PO BID #30 tablet MDD 2 01/26/18 Cefuroxime Axetil [Ceftin -] 500 mg PO BID #10 tablet MDD 2 01/26/18 Anemia: Yes (SICKLE CELL) Asthma: No (BRONCHITIS) Cancer: No CVA: No COPD: No Diabetes: No HTN: Yes Seizures: No - Surgical History Abdominal Surgery: Yes Cardiac Surgery: No Cholecystectomy: Yes Orthopedic Surgery: Yes ([place] hip replacement 2005 ?) - Immunization History Immunization Up to Date: Yes (no pna) - Suicide/Smoking/Psychosocial Hx Smoking Status: No Smoking History: Unknown if ever smoked Have you smoked in the past 12 months: No Number of Cigarettes Smoked Daily: 0 Information on smoking cessation initiated: No Hx Alcohol Use: No Drug/Substance Use Hx: No Substance Use Type: None Hx Substance Use Treatment: No Review of Systems - Review of Systems Comments:: 05/20/18 16:37 GENERAL/CONSTITUTIONAL: No fever or chills. No weakness. HEAD, EYES, EARS, NOSE AND THROAT: No change in vision. No ear pain or discharge. No sore throat. CARDIOVASCULAR: +Chest pain w/ SOB as described. RESPIRATORY: +Cough as described with additional intermittent wheezing. No hemoptysis. GASTROINTESTINAL: No nausea, vomiting, diarrhea or constipation. GENITOURINARY: No dysuria, frequency, or change in urination. MUSCULOSKELETAL: No joint or muscle swelling or pain. No neck or back pain. SKIN: No rash NEUROLOGIC: No headache, vertigo, loss of consciousness, or change in strength/ sensation. ENDOCRINE: No increased thirst. No abnormal weight change HEMATOLOGIC/LYMPHATIC: No anemia, easy bleeding, or history of blood clots. ALLERGIC/IMMUNOLOGIC: No hives or skin allergy. *Physical Exam - Vital Signs Last Vital Signs Temp Pulse Resp BP Pulse Ox 98.4 F 83 16 103/51 L 95 05/20/18 16:13 05/20/18 16:13 05/20/18 16:13 05/20/18 16:13 05/20/18 16:13 - Physical Exam Comments: 05/20/18 16:37 GENERAL: Awake, alert, and fully oriented, in no acute distress HEAD: No signs of trauma, normocephalic, atraumatic EYES: PERRLA, EOMI, sclera anicteric, conjunctiva clear ENT: Auricles normal inspection, hearing grossly normal, nares patent, oropharynx clear without exudates. Moist mucosa NECK: Normal ROM, supple, no lymphadenopathy, JVD, or masses LUNGS: +Expiratory wheezes appreciated throughout. No distress, speaks full sentences HEART: Regular rate and rhythm, normal S1 and S2, no murmurs, rubs or gallops, peripheral pulses normal and equal bilaterally. ABDOMEN: Soft, nontender, normoactive bowel sounds. No guarding, no rebound. No masses EXTREMITIES: Normal inspection, Normal range of motion, no edema. No clubbing or cyanosis. NEUROLOGICAL: Cranial nerves II through XII grossly intact. Normal speech, normal gait, no focal sensorimotor deficits SKIN: Warm, Dry, normal turgor, no rashes or lesions noted. ED Treatment Course - LABORATORY CBC & Chemistry Diagram: 05/20/18 16:46 05/20/18 16:46 Medical Decision Making - Medical Decision Making 05/20/18 19:23 Ms. Flaherty is a 73 yo female w/ pmh as described who presents for evaluation of symptoms concerning for PE vs. sickle cell crisis vs. COPD exacerbation vs. ACS. Patient evaluated with labs as below with EKG and CXR. CXR concerning for generalized congestion with corresponding elevated WBC noted as below. Patient also noted to have GUCCI w/ hypokalemia and hypomagnesium. Laboratory Results - last 24 hr 05/20/18 05/20/18 05/20/18 16:46 16:46 16:46 WBC 16.2 H RBC 3.72 Hgb 10.5 L Hct 31.6 L MCV 84.8 MCH 28.3 MCHC 33.3 RDW 17.6 H Plt Count 333 MPV 8.0 Absolute Neuts (auto) 9.4 H Neutrophils % 58.2 Lymphocytes % 31.4 Monocytes % 4.5 Eosinophils % 3.9 Basophils % 2.0 Nucleated RBC % 1 H Retic Count PT with INR 19.50 H INR 1.64 H PTT (Actin FS) 34.9 Sodium 139 Potassium 3.1 L Chloride 100 Carbon Dioxide 30 Anion Gap 9 BUN 16 Creatinine 1.6 H Creat Clearance w eGFR 31.51 Random Glucose 99 Calcium 8.1 L Magnesium 1.3 L Total Bilirubin 0.6 AST 10 L ALT 7 L Alkaline Phosphatase 112 Troponin I < 0.02 Total Protein 8.1 Albumin 3.1 L 05/20/18 05/20/18 16:46 18:01 WBC RBC Hgb Hct MCV MCH MCHC RDW Plt Count MPV Absolute Neuts (auto) Neutrophils % Lymphocytes % Monocytes % Eosinophils % Basophils % Nucleated RBC % Retic Count 2.14 H PT with INR INR PTT (Actin FS) Sodium Potassium Chloride Carbon Dioxide Anion Gap BUN Creatinine Creat Clearance w eGFR Random Glucose Calcium Magnesium Total Bilirubin AST ALT Alkaline Phosphatase Troponin I Cancelled Total Protein Albumin *DC/Admit/Observation/Transfer Diagnosis at time of Disposition: COPD exacerbation, GUCCI (acute kidney injury) - Discharge Dispostion Condition at time of disposition: Stable Decision to Admit order: Yes - Referrals - Patient Instructions - Post Discharge Activity
[2018-05-20] MEDS ORDERED: predniSONE 20 MG TABLET (UD) PO ONE (17:17)
[2018-05-20 17:33] LABS: EOS % 3.9 % (0-4.5); HEMATOCRIT 31.6 % (32.4-45.2); HEMOGLOBIN 10.5 GM/dL (10.7-15.3); LYMPH % 31.4 % (8-40); MCH 28.3 pg (25.7-33.7); MCHC 33.3 g/dl (32.0-36.0); MEAN CELL VOLUME 84.8 fl (80-96); MONO % 4.5 % (3.8-10.2); NEUT % 58.2 % (42.8-82.8); PLATELET COUNT 333 K/MM3 (134-434); RBC 3.72 M/mm3 (3.60-5.2); RDW 17.6 % (11.6-15.6); WHITE BLOOD COUNT 16.2 K/mm3 (4.0-10.0)
[2018-05-20] MEDS ORDERED: ALBUTEROL SO4 2.5/IPRATROPIUM 0.5 INH SOL 3 ML VIAL.NEB. NEB ONE (17:51)
[2018-05-20] MEDS ORDERED: predniSONE 20 MG TABLET (UD) ONE (17:51)
[2018-05-20] MEDS: ALBUTEROL SO4 2.5/IPRATROPIUM 0.5 INH SOL 3 ML VIAL.NEB. NEB SCH ×3 (18:00→18:19)
--- NOTE | 2018-05-20 18:44 | PDOC ---
Attending Attestation - HPI HPI: This patient is a 73 year old woman with a PMHx of sickle cell disease, COPD, PE (on Eliquis) and HTN who presents with 3 days of productive cough with greenish sputum. Patient states that she tried using her breathing treatment today w/o improvement. She states that her cough is not going away and reports associated pleuritic chest pain. Denies any fevers. Surgical Hx: cholecystectomy - Physicial Exam PE: GENERAL: Awake, alert, and fully oriented, in no acute distress HEAD: No signs of trauma NECK: Normal ROM, supple, no lymphadenopathy, JVD, or masses LUNGS: Faint scattered wheezes at bases. Good air entry. HEART: Regular rate and rhythm, normal S1 and S2, no murmurs, rubs or gallops ABDOMEN: Soft, nontender, normoactive bowel sounds. No guarding, no rebound. No masses EXTREMITIES: Normal range of motion, no edema. No cords, erythema, or tenderness NEUROLOGICAL: Cranial nerves II through XII grossly intact. Normal speech. SKIN: Warm, Dry, normal turgor, no rashes or lesions noted. <Mikayla Menjivar - Last Filed: 05/20/18 18:54> - Resident Resident Name: Amador Bush - Medical Decision Making 05/20/18 20:46 Pt presents to the ED complaining of cough and shortness of breath consistent with prior COPD exacerbations. Feels improved in the ED after nebs and steroids , but has a slightly low blood pressure, a slightly elevated creatinine and an elevated WBC count. Will admit to medicine for IV hydration and repeat labs. <Jeane Pineda - Last Filed: 05/20/18 20:47> Attestations - Attestations 05/20/18 18:57 Documentation prepared by Mikayla Menjivar, acting as certified medical aide for Jeane Pineda MD. <Mikayla Menjivar - Last Filed: 05/20/18 18:54>
[2018-05-20] MEDS ORDERED: AZITHROMYCIN 500 MG TABLET PO ONE (18:53)
[2018-05-20 19:00] LABS: ALBUMIN 3.1 g/dl (3.4-5.0); ALK PHOS 112 U/L (45-117); ANION GAP 9 MMOL/L (8-16); BILIRUBIN,TOTAL 0.6 mg/dL (0.2-1); BLOOD UREA NITROGEN 16 mg/dL (7-18); CALCIUM 8.1 mg/dL (8.5-10.1); CHLORIDE 100 mmol/L (98-107); CO2 30 mmol/L (21-32); CREATININE 1.6 mg/dL (0.55-1.3); GLUCOSE,RANDOM 99 mg/dL (74-106); MAGNESIUM 1.3 mg/dL (1.8-2.4); POTASSIUM 3.1 mmol/L (3.5-5.1); SGOT/AST 10 U/L (15-37); SGPT/ALT 7 U/L (13-61); SODIUM 139 mmol/L (136-145); TOT PROT 8.1 g/dl (6.4-8.2)
[2018-05-20] MEDS ORDERED: AZITHROMYCIN 250 MG TABLET ONE (19:00)
[2018-05-20 19:09] LABS: INR 1.64 (0.83-1.09); PROTHROMBIN TIME (PATIENT) 19.5 SEC (9.7-13.0)
[2018-05-20] MEDS ORDERED: SODIUM CHLORIDE 500 ML IV STA (19:10)
[2018-05-20 19:12] LABS: ACTIVATED PTT 34.9 SECONDS (25.2-36.5)
[2018-05-20] MEDS ORDERED: MAGNESIUM SULF 50% (8.12 MEQ/2 ML-1 GM VIAL) IVPB ONE (19:22)
[2018-05-20] MEDS ORDERED: POTASSIUM CHLORIDE TABS 20 MEQ TABLET.ER (FP) PO ONE ×2 (19:23→20:29)
[2018-05-20] MEDS ORDERED: MAGNESIUM 1GM/D5W - 1 GM/100 ML IVPB IVPB ONE (20:27)
--- NOTE | 2018-05-20 20:50 | HP ---
Admitting History and Physical - Primary Care Physician PCP: Javed Wilkinson - Admission Chief Complaint: Productive Cough History of Present Illness: This is a 73 y/o woman with a PMHx of COPD, Asthma, pE (on Eliquis), HTN, Sickle Cell Disease, Chronic Back Pain, Substance Abuse (prescription). Who presents to the ED with a productive cough with green phlegm, SOB x 3 days. Patient denies fever, chills, dizziness, CP, palpitations, AP, N/V/D, constipation, dysuria. History Source: Patient Limitations to Obtaining History: No Limitations - Past Medical History Cardiovascular: Yes: HTN Pulmonary: Yes: COPD, Pulmonary Embolus Heme/Onc: Yes: Sickle Cell Disease (SC disease) Psych: Yes: Addictions, Other (Pain meds- methadone, oxycodone ) Musculoskeletal: Yes: Chronic low back pain - Past Surgical History Past Surgical History: Yes: Cholecystectomy, Hysterectomy, Joint Replacement ( bilateral hip replacements) - Smoking History Smoking history: Unknown if ever smoked Have you smoked in the past 12 months: No Aproximately how many cigarettes per day: 0 - Alcohol/Substance Use Hx Alcohol Use: No History of Substance Use: reports: Prescription - Social History ADL: Independent History of Recent Travel: No Home Medications - Allergies Allergies/Adverse Reactions: Allergies Allergy/AdvReac Type Severity Reaction Status Date / Time ciprofloxacin [From Cipro] Allergy Itching Verified 01/21/18 08:48 ciprofloxacin HCl Allergy Itching Verified 01/21/18 08:48 [From Cipro] codeine [Codeine] Allergy Verified 01/21/18 08:48 levofloxacin [From Levaquin] Allergy Itching Verified 01/21/18 08:48 Penicillins Allergy Itching Verified 01/21/18 08:48 Sulfa (Sulfonamide Allergy Verified 01/21/18 08:48 Antibiotics) tetanus immune globulin Allergy Verified 01/21/18 08:48 IV DYE Allergy Uncoded 01/21/18 08:48 - Home Medications Home Medications: Ambulatory Orders Folic Acid - 1 mg PO DAILY 02/11/13 Docusate Sodium [Colace -] 100 mg PO DAILY 04/06/15 Montelukast Na [Singulair -] 10 mg PO HS 04/06/15 Budesonide/Formeterol Fumarate [SYMBICORT 160/4.5mcg -] 1 inh PO BID 08/19/15 Cholecalciferol (Vitamin D3) [Vitamin D3 -] 1,000 unit PO DAILY 08/19/15 Ipratropium/Albuterol Sulfate [Combivent Respimat 20-100 Mcg] 1 inh IH Q4H PRN 08/19/15 Acetaminophen [Tylenol .Extra-Strength -] 1,000 mg PO Q8H PRN #0 tablet Chlorhexidine Gluconate 480 ml MM HS #1 mouthwash 11/25/15 Albuterol Sulfate [Proair Hfa] 2 inh IH QID PRN 01/21/18 Duloxetine HCl 30 mg PO HS 01/21/18 Gabapentin 300 mg PO HS 01/21/18 Losartan Potassium [Cozaar -] 50 mg PO DAILY 01/21/18 Apixaban [Eliquis -] 5 mg PO BID #30 tablet MDD 2 01/26/18 Cefuroxime Axetil [Ceftin -] 500 mg PO BID #10 tablet MDD 2 01/26/18 oxyCODONE HCL [Roxybond] 30 mg PO QID PRN 05/21/18 oxyCODONE SR [Oxycontin] 40 mg PO BID 05/21/18 Family Disease History - Family Disease History Family Disease History: Diabetes: Mother (HTN, TIIDM, Stroke), Heart Disease: Mother, CA: Father (Lung CA), Other: Mother Review of Systems - Review of Systems Constitutional: reports: No Symptoms Eyes: reports: No Symptoms HENT: reports: No Symptoms Neck: reports: No Symptoms Cardiovascular: reports: No Symptoms Respiratory: reports: Cough Gastrointestinal: reports: No Symptoms Genitourinary: reports: No Symptoms Breasts: reports: No Symptoms Reported Musculoskeletal: reports: No Symptoms Integumentary: reports: No Symptoms Neurological: reports: No Symptoms Endocrine: reports: No Symptoms Hematology/Lymphatic: reports: No Symptoms Psychiatric: reports: No Symptoms Physical Examination Vital Signs: Vital Signs Temperature 98.4 F 05/20/18 16:13 Pulse Rate 83 05/20/18 16:13 Respiratory Rate 16 05/20/18 16:13 Blood Pressure 103/51 L 05/20/18 16:13 O2 Sat by Pulse Oximetry (%) 95 05/20/18 16:13 Constitutional: Yes: Well Nourished, No Distress, Calm Eyes: Yes: WNL, Conjunctiva Clear, EOM Intact HENT: Yes: WNL, Atraumatic, Normocephalic Neck: Yes: WNL, Supple, Trachea Midline Cardiovascular: Yes: Regular Rate and Rhythm, S1, S2 Respiratory: Yes: Rhonchi, Wheezes Gastrointestinal: Yes: WNL, Normal Bowel Sounds, Soft, Abdomen, Obese Musculoskeletal: Yes: Back Pain Extremities: Yes: WNL Edema: No Peripheral Pulses WNL: Yes Neurological: Yes: WNL, Alert, Oriented, Cran Nerves II-XII Intact ...Motor Strength: WNL Psychiatric: Yes: WNL, Alert, Oriented Labs: CBC, BMP 05/20/18 16:46 05/20/18 16:46 Laboratory Results - last 24 hr 05/20/18 05/20/18 05/20/18 16:46 16:46 16:46 WBC 16.2 H RBC 3.72 Hgb 10.5 L Hct 31.6 L MCV 84.8 MCH 28.3 MCHC 33.3 RDW 17.6 H Plt Count 333 MPV 8.0 Absolute Neuts (auto) 9.4 H Neutrophils % 58.2 Lymphocytes % 31.4 Monocytes % 4.5 Eosinophils % 3.9 Basophils % 2.0 Nucleated RBC % 1 H Retic Count PT with INR 19.50 H INR 1.64 H PTT (Actin FS) 34.9 Sodium 139 Potassium 3.1 L Chloride 100 Carbon Dioxide 30 Anion Gap 9 BUN 16 Creatinine 1.6 H Creat Clearance w eGFR 31.51 Random Glucose 99 Calcium 8.1 L Magnesium 1.3 L Total Bilirubin 0.6 AST 10 L ALT 7 L Alkaline Phosphatase 112 Troponin I < 0.02 Total Protein 8.1 Albumin 3.1 L 05/20/18 05/20/18 16:46 18:01 WBC RBC Hgb Hct MCV MCH MCHC RDW Plt Count MPV Absolute Neuts (auto) Neutrophils % Lymphocytes % Monocytes % Eosinophils % Basophils % Nucleated RBC % Retic Count 2.14 H PT with INR INR PTT (Actin FS) Sodium Potassium Chloride Carbon Dioxide Anion Gap BUN Creatinine Creat Clearance w eGFR Random Glucose Calcium Magnesium Total Bilirubin AST ALT Alkaline Phosphatase Troponin I Cancelled Total Protein Albumin Imaging - Results Chest X-ray: Image Reviewed Problem List - Problems (1) COPD (chronic obstructive pulmonary disease) with chronic bronchitis Assessment/Plan: Likely acute flare WBC 16.2, without L- shift Chest Xray image- increased markings to right base, awaiting official report Prednisone, Zithromax given in ED will continue Appreciate Pulm consult Duonebs prn Monitor CBC Monitor vitals Peakflow O2 Code(s): J44.9 - CHRONIC OBSTRUCTIVE PULMONARY DISEASE, UNSPECIFIED (2) GUCCI (acute kidney injury) Assessment/Plan: Likely secondary to volume depletion vs SCD Cr 1.6 slightly above since last report 01/2018 1.4 Appreciate Nephrology consult Renal US done 01/2018- minimal to mild dilatation of the right jasmyne; pelvis without associated calyceal dilatation NS bolus given in ED Will continue gentle IVF for now Repeat BMP in am Code(s): N17.9 - ACUTE KIDNEY FAILURE, UNSPECIFIED (3) Asthma Assessment/Plan: Continue Symbicort Duonebs prn Peak flow Code(s): J45.909 - UNSPECIFIED ASTHMA, UNCOMPLICATED (4) Leukocytosis Assessment/Plan: Likely secondary to inflammatory response vs infectious Monitor CBC Code(s): D72.829 - ELEVATED WHITE BLOOD CELL COUNT, UNSPECIFIED (5) Hypokalemia Assessment/Plan: Likely secondary to volume depletion Repleted with KCL in ED Monitor BMP closely Code(s): E87.6 - HYPOKALEMIA (6) Pulmonary embolism during treatment with long-term anticoagulation therapy Assessment/Plan: Continue Eliquis Code(s): I26.99 - OTHER PULMONARY EMBOLISM WITHOUT ACUTE COR PULMONALE; Z79.01 - SENIOR LIVING (CURRENT) USE OF ANTICOAGULANTS (7) Sickle cell anemia Assessment/Plan: Retic 2.4 Continue Folic Acid Code(s): D57.1 - SICKLE-CELL DISEASE WITHOUT CRISIS Qualifiers: Sickle-cell associated disorders: without crisis Qualified Code(s): D57.1 - Sickle-cell disease without crisis (8) HTN (hypertension) Assessment/Plan: stable Monitor BP Continue Losartan with parameters Code(s): I10 - ESSENTIAL (PRIMARY) HYPERTENSION Qualifiers: Hypertension type: essential hypertension Qualified Code(s): I10 - Essential (primary) hypertension Assessment/Plan 73 y/o woman with a PMHx of: COPD, Asthma, PE ( on Eliquis), Sickle Cell Disease , HTN, Chronic Back Pain, Substance Abuse (prescription). Placed in Observation for Acute COPD Exacerbation with Bronchitis, Acute on Chronic Renal Insufficiency for further evaluation of their emergent condition. Plan: See Problem List FEN PO Fluids as tolerated Replete lytes prn Low Na Diet DVT ppx OOB SCDs Continue Eliquis Dispo: Observation Visit type - Emergency Visit Emergency Visit: Yes ED Registration Date: 05/20/18 Care time: The patient presented to the Emergency Department on the above date and was hospitalized for further evaluation of their emergent condition. - New Patient This patient is new to me today: Yes Date on this admission: 05/20/18 - Critical Care Critical Care patient: No
[2018-05-20] MEDS ORDERED: ALBUTEROL SO4 2.5/IPRATROPIUM 0.5 INH SOL 3 ML VIAL.NEB. NEB PRN (21:31)
[2018-05-20] MEDS ORDERED: APIXABAN 5 MG TABLET PO ONE (23:39)
[2018-05-20] MEDS: APIXABAN 5 MG TABLET PO SCH (23:45)
[2018-05-21 02:44] VITALS: BMI 29.9
[2018-05-21 06:59] LABS: BASO % 0.3 % (0-2.0); EOS % 0.1 % (0-4.5); HEMOGLOBIN 9.5 GM/dL (10.7-15.3); LYMPH % 29.1 % (8-40); MCH 28.4 pg (25.7-33.7); MCHC 34.1 g/dl (32.0-36.0); MEAN CELL VOLUME 83.4 fl (80-96); MEAN PLT VOLUME 7.7 fl (7.5-11.1); MONO % 3.1 % (3.8-10.2); NEUT % 67.4 % (42.8-82.8); PLATELET COUNT 332 K/MM3 (134-434); RBC 3.35 M/mm3 (3.60-5.2); RDW 17.7 % (11.6-15.6)
[2018-05-21 07:39] LABS: ANION GAP 7 MMOL/L (8-16); BLOOD UREA NITROGEN 20 mg/dL (7-18); CALCIUM 8.1 mg/dL (8.5-10.1); CHLORIDE 102 mmol/L (98-107); CO2 30 mmol/L (21-32); CREATININE 1.4 mg/dL (0.55-1.3); GLUCOSE,RANDOM 177 mg/dL (74-106); MAGNESIUM 1.9 mg/dL (1.8-2.4); PHOSPHOROUS 2.5 mg/dL (2.5-4.9); POTASSIUM 3.9 mmol/L (3.5-5.1); SODIUM 139 mmol/L (136-145)
[2018-05-21] MEDS: oxyCODONE HCL 40 MG SUSTAINED ACTING TABLET PO SCH ×2 (09:34→21:49)
[2018-05-21] MEDS: DOCUSATE SODIUM 100 MG CAPSULE (FP) PO SCH ×2 (09:37→21:48)
[2018-05-21] MEDS: APIXABAN 5 MG TABLET PO SCH ×2 (09:37→21:49)
[2018-05-21] MEDS: AZITHROMYCIN 250 MG TABLET PO SCH (09:37)
[2018-05-21] MEDS: FOLIC ACID 1 MG TABLET (FP) PO SCH (09:37)
[2018-05-21] MEDS: LOSARTAN POTASSIUM 50 MG TABLET (FP) PO SCH (09:38)
[2018-05-21] MEDS: BUDESONIDE/FORMETEROL FUMARATE 160/4.5 mcg INHALER IH SCH ×2 (09:38→21:48)
[2018-05-21] MEDS ORDERED: ACETAMINOPHEN 325 MG TABLET (FP) PO PRN (10:10)
--- NOTE | 2018-05-21 10:10 | PN ---
Progress Note, Physician Chief Complaint: Cough History of Present Illness: c/o of midsternal musculoskelatal pain 2/2 to cough +congestion -SOB - Current Medication List Current Medications: Active Medications Albuterol/Ipratropium (Duoneb -) 1 amp NEB Q6H PRN PRN Reason: SHORTNESS OF BREATH Apixaban (Eliquis -) 5 mg PO BID [facility] Last Admin: 05/21/18 09:37 Dose: 5 mg Azithromycin (Zithromax -) 500 mg PO DAILY [facility] Last Admin: 05/21/18 09:37 Dose: 500 mg Budesonide/Formoterol Fumarate (Symbicort 160/4.5mcg -) 1 puff IH BID [facility] Last Admin: 05/21/18 09:38 Dose: 1 puff Docusate Sodium (Colace -) 100 mg PO BID [facility] Last Admin: 05/21/18 09:37 Dose: 100 mg Duloxetine HCl (Cymbalta -) 30 mg PO BID [facility] Folic Acid (Folic Acid -) 1 mg PO DAILY [facility] Last Admin: 05/21/18 09:37 Dose: 1 mg Gabapentin (Neurontin -) 300 mg PO HS [facility] Losartan Potassium (Cozaar -) 50 mg PO DAILY [facility] Last Admin: 05/21/18 09:38 Dose: 50 mg Montelukast Sodium (Singulair -) 10 mg PO HS [facility] Oxycodone HCl (Roxicodone -) 30 mg PO Q6H PRN PRN Reason: PAIN LEVEL 7 - 10 Oxycodone HCl (Oxycontin -) 40 mg PO BID [facility] Last Admin: 05/21/18 09:34 Dose: 40 mg - Objective Vital Signs: Vital Signs Temperature 98.2 F 05/21/18 05:00 Pulse Rate 97 H 05/21/18 05:00 Respiratory Rate 18 05/21/18 05:00 Blood Pressure 159/83 05/21/18 05:00 O2 Sat by Pulse Oximetry (%) 97 05/21/18 05:28 Constitutional: Yes: Well Nourished, No Distress, Calm Cardiovascular: Yes: Regular Rate and Rhythm Respiratory: Yes: Regular, Rhonchi (diffuse), Wheezes (Diffuse) Gastrointestinal: Yes: WNL Genitourinary: Yes: WNL Musculoskeletal: Yes: WNL Extremities: Yes: WNL Edema: No Peripheral Pulses WNL: Yes Neurological: Yes: Alert, Oriented Psychiatric: Yes: Alert, Oriented Labs: CBC, BMP 05/21/18 06:10 05/21/18 06:10 INR, PTT INR 1.64 (0.83-1.09) H 05/20/18 16:46 Assessment/Plan (1) COPD (chronic obstructive pulmonary disease) with chronic bronchitis Assessment/Plan: -Continue Symbicort -Bronchodilators prn -Pulmonary consult -Chest Xray image- increased markings to right base, awaiting official report -Nasal O2 PRN -Continue azithromycin -medrol -Tussin -Cepacol Code(s): J44.9 - CHRONIC OBSTRUCTIVE PULMONARY DISEASE, UNSPECIFIED (2) GUCCI (acute kidney injury) Assessment/Plan: -Cr improving Code(s): N17.9 - ACUTE KIDNEY FAILURE, UNSPECIFIED (3) Asthma Assessment/Plan: -Continue Symbicort -Bronchodilators prn -Pulmonary consult Code(s): J45.909 - UNSPECIFIED ASTHMA, UNCOMPLICATED (4) Leukocytosis Assessment/Plan: -Likely secondary to inflammatory response vs infectious Code(s): D72.829 - ELEVATED WHITE BLOOD CELL COUNT, UNSPECIFIED (5) Hypokalemia Assessment/Plan: -resolved Code(s): E87.6 - HYPOKALEMIA (6) Pulmonary embolism during treatment with long-term anticoagulation therapy Assessment/Plan: -Continue Eliquis Code(s): I26.99 - OTHER PULMONARY EMBOLISM WITHOUT ACUTE COR PULMONALE; Z79.01 - [employer] (CURRENT) USE OF ANTICOAGULANTS (8) HTN (hypertension) Assessment/Plan: -stable -Monitor BP -Continue Losartan with parameters Code(s): I10 - ESSENTIAL (PRIMARY) HYPERTENSION Qualifiers: Hypertension type: essential hypertension Qualified Code(s): I10 - Essential (primary) hypertension
[2018-05-21 10:15] LABS: ANISOCYTOSIS 1+; MACROCYTOSIS 0; PLATELET ESTIMATE NORMAL; TARGET CELLS 2+
[2018-05-21] MEDS ORDERED: SODIUM CHLORIDE 1,000 ML IV SCH (10:15)
--- NOTE | 2018-05-21 12:01 | CON.PULM ---
Consult Consult Specialty:: PULMONARY Referred by:: NELIA Gonzalez Reason for Consultation:: shortness of breath - History of Present Illness Chief Complaint: shortness of breath History of Present Illness: 73yo female with h/o asthma/COPD, HTN, h/o PE on anticoagulation who was admitted with worsening shortness fo breath. +cough productive of green sputum and has been wheezing. Compliant with her inhalers at home. No fevers, chills or sweats. No chest pain or palpitations. She is a never smoker. - History Source History Provided By: Patient, Medical Record Limitations to Obtaining History: No Limitations - Past Medical History Cardio/Vascular: Yes: HTN Pulmonary: Yes: COPD, Pulmonary Embolus Psych: Yes: Addictions, Other (Pain meds- methadone, oxycodone ) Musculoskeletal: Yes: Chronic low back pain - Past Surgical History Past Surgical History: Yes: Cholecystectomy, Hysterectomy, Joint Replacement ( bilateral hip replacements) - Alcohol/Substance Use Hx Alcohol Use: No History of Substance Use: reports: Prescription - Smoking History Smoking history: Unknown if ever smoked Have you smoked in the past 12 months: No Aproximately how many cigarettes per day: 0 - Social History Usual Living Arrangement: With Spouse ADL: Independent History of Recent Travel: No Home Medications - Allergies Allergies/Adverse Reactions: Allergies Allergy/AdvReac Type Severity Reaction Status Date / Time ciprofloxacin [From Cipro] Allergy Itching Verified 01/21/18 08:48 ciprofloxacin HCl Allergy Itching Verified 01/21/18 08:48 [From Cipro] codeine [Codeine] Allergy Verified 01/21/18 08:48 levofloxacin [From Levaquin] Allergy Itching Verified 01/21/18 08:48 Penicillins Allergy Itching Verified 01/21/18 08:48 Sulfa (Sulfonamide Allergy Verified 01/21/18 08:48 Antibiotics) tetanus immune globulin Allergy Verified 01/21/18 08:48 IV DYE Allergy Uncoded 01/21/18 08:48 - Home Medications Home Medications: Ambulatory Orders Folic Acid - 1 mg PO DAILY 02/11/13 Docusate Sodium [Colace -] 100 mg PO DAILY 04/06/15 Montelukast Na [Singulair -] 10 mg PO HS 04/06/15 Budesonide/Formeterol Fumarate [SYMBICORT 160/4.5mcg -] 1 inh PO BID 08/19/15 Cholecalciferol (Vitamin D3) [Vitamin D3 -] 1,000 unit PO DAILY 08/19/15 Ipratropium/Albuterol Sulfate [Combivent Respimat 20-100 Mcg] 1 inh IH Q4H PRN 08/19/15 Acetaminophen [Tylenol .Extra-Strength -] 1,000 mg PO Q8H PRN #0 tablet Chlorhexidine Gluconate 480 ml MM HS #1 mouthwash 11/25/15 Albuterol Sulfate [Proair Hfa] 2 inh IH QID PRN 01/21/18 Duloxetine HCl 30 mg PO HS 01/21/18 Gabapentin 300 mg PO HS 01/21/18 Losartan Potassium [Cozaar -] 50 mg PO DAILY 01/21/18 Apixaban [Eliquis -] 5 mg PO BID #30 tablet MDD 2 01/26/18 Cefuroxime Axetil [Ceftin -] 500 mg PO BID #10 tablet MDD 2 01/26/18 oxyCODONE HCL [Roxybond] 30 mg PO QID PRN 05/21/18 oxyCODONE SR [Oxycontin] 40 mg PO BID 05/21/18 Family Disease History - Family Disease History Family Disease History: Diabetes: Mother (HTN, TIIDM, Stroke), Heart Disease: Mother, CA: Father (Lung CA), Other: Mother Review of Systems - Review of Systems Constitutional: denies: Chills, Fever, Weakness Eyes: denies: Recent Change in Vision HENT: denies: Nasal Congestion, Throat Pain Neck: denies: Stiffness, Tenderness Cardiovascular: reports: Chest Pain, Shortness of Breath. denies: Edema Respiratory: reports: Cough, Wheezing. denies: Hemoptysis Gastrointestinal: denies: Abdominal Pain, Nausea, Vomiting Genitourinary: denies: Dysuria, Hematuria Neurological: denies: Dizziness, Headache Endocrine: denies: Unexplained Weight Loss Physical Exam Vital Sings: Vital Signs Temperature 98.2 F 05/21/18 05:00 Pulse Rate 97 H 05/21/18 05:00 Respiratory Rate 18 05/21/18 05:00 Blood Pressure 159/83 05/21/18 05:00 O2 Sat by Pulse Oximetry (%) 97 05/21/18 05:28 Constitutional: Yes: Calm Eyes: Yes: Conjunctiva Clear, EOM Intact HENT: Yes: Atraumatic, Normocephalic Neck: Yes: Supple, Trachea Midline Cardiovascular: Yes: Regular Rate and Rhythm Respiratory: Yes: Rhonchi (scattered), Wheezes (scattered) ...Clubbing: No Gastrointestinal: Yes: Normal Bowel Sounds, Soft. No: Tenderness Edema: No Neurological: Yes: Alert, Oriented Labs: CBC, BMP 05/21/18 06:10 05/21/18 06:10 Imaging - Results Chest X-ray: Report Reviewed, Image Reviewed (no infiltrates) Problem List - Problems (1) COPD exacerbation Code(s): J44.1 - CHRONIC OBSTRUCTIVE PULMONARY DISEASE W (ACUTE) EXACERBATION (2) GUCCI (acute kidney injury) Code(s): N17.9 - ACUTE KIDNEY FAILURE, UNSPECIFIED (3) HTN (hypertension) Code(s): I10 - ESSENTIAL (PRIMARY) HYPERTENSION Qualifiers: Hypertension type: essential hypertension Qualified Code(s): I10 - Essential (primary) hypertension Assessment/Plan Acute COPD Exacerbation Acute Bronchitis Acute Kidney Injury h/o PE HTN - IV medrol - inhaled bronchodilators standing and PRN - cough suppressants - O2 to keep SpO2 >90% - continue anticoagulation - outpt PFTs - DVT prophylaxis Thank you for this consult Venkat Castro MD
[2018-05-21] MEDS ORDERED: ALBUTEROL SO4 0.083% IH SOL 2.5 MG/3 ML VIAL.NEB. NEB PRN (12:02)
[2018-05-21] MEDS ORDERED: BENZOCAINE/MENTH/CETYLPYRD CL 1 EACH LOZENGE MM PRN (12:15)
[2018-05-21] MEDS ORDERED: guaiFENesin/D-M SUGAR-FREE/ACLHOL-FREE 118 ML BOTTLE PO PRN (12:15)
[2018-05-21] MEDS: ALBUTEROL SO4 2.5/IPRATROPIUM 0.5 INH SOL 3 ML VIAL.NEB. NEB SCH ×3 (12:45→20:10)
[2018-05-21] MEDS: DULoxetine HCL 30 MG CAPSULE.DR (FP) PO SCH ×2 (13:28→21:48)
[2018-05-21] MEDS: methylPREDNISolone NA SUCC 40 MG/1 ML VIAL IVPUSH SCH ×2 (13:28→17:15)
[2018-05-21] MEDS ORDERED: PT OWN MED DRAWER 7, Y5N ONE (15:07)
--- NOTE | 2018-05-21 18:36 | CON.NEP ---
Consult Consult Specialty:: Nephrology Referred by:: stanley Reason for Consultation:: edil on ckd - History of Present Illness History of Present Illness: pt admissted with chest pain and cough being eval for Acute COPD Exacerbation/Acute Bronchitis azotemia on admission has improved slightly on repeat labs now renal function improving screat 1.4 but baseline is 0.8 a few months ago SHE WAS HYPOTENSIVE ON ADMISSION NOW bp BETTER - Past Medical History Cardio/Vascular: Yes: HTN Pulmonary: Yes: COPD, Pulmonary Embolus Psych: Yes: Addictions, Other (Pain meds- methadone, oxycodone ) Musculoskeletal: Yes: Chronic low back pain - Past Surgical History Past Surgical History: Yes: Cholecystectomy, Hysterectomy, Joint Replacement ( bilateral hip replacements) - Alcohol/Substance Use Hx Alcohol Use: No History of Substance Use: reports: Prescription - Smoking History Smoking history: Unknown if ever smoked Have you smoked in the past 12 months: No Aproximately how many cigarettes per day: 0 - Social History Usual Living Arrangement: With Spouse ADL: Independent History of Recent Travel: No Home Medications - Allergies Allergies/Adverse Reactions: Allergies Allergy/AdvReac Type Severity Reaction Status Date / Time ciprofloxacin [From Cipro] Allergy Itching Verified 01/21/18 08:48 ciprofloxacin HCl Allergy Itching Verified 01/21/18 08:48 [From Cipro] codeine [Codeine] Allergy Verified 01/21/18 08:48 levofloxacin [From Levaquin] Allergy Itching Verified 01/21/18 08:48 Penicillins Allergy Itching Verified 01/21/18 08:48 Sulfa (Sulfonamide Allergy Verified 01/21/18 08:48 Antibiotics) tetanus immune globulin Allergy Verified 01/21/18 08:48 IV DYE Allergy Uncoded 01/21/18 08:48 - Home Medications Home Medications: Ambulatory Orders Folic Acid - 1 mg PO DAILY 02/11/13 Docusate Sodium [Colace -] 100 mg PO DAILY 04/06/15 Montelukast Na [Singulair -] 10 mg PO HS 04/06/15 Budesonide/Formeterol Fumarate [SYMBICORT 160/4.5mcg -] 1 inh PO BID 08/19/15 Cholecalciferol (Vitamin D3) [Vitamin D3 -] 1,000 unit PO DAILY 08/19/15 Ipratropium/Albuterol Sulfate [Combivent Respimat 20-100 Mcg] 1 inh IH Q4H PRN 08/19/15 Acetaminophen [Tylenol .Extra-Strength -] 1,000 mg PO Q8H PRN #0 tablet Chlorhexidine Gluconate 480 ml MM HS #1 mouthwash 11/25/15 Albuterol Sulfate [Proair Hfa] 2 inh IH QID PRN 01/21/18 Duloxetine HCl 30 mg PO HS 01/21/18 Gabapentin 300 mg PO HS 01/21/18 Losartan Potassium [Cozaar -] 50 mg PO DAILY 01/21/18 Apixaban [Eliquis -] 5 mg PO BID #30 tablet MDD 2 01/26/18 Cefuroxime Axetil [Ceftin -] 500 mg PO BID #10 tablet MDD 2 01/26/18 oxyCODONE HCL [Roxybond] 30 mg PO QID PRN 05/21/18 oxyCODONE SR [Oxycontin] 40 mg PO BID 05/21/18 Family Disease History - Family Disease History Family Disease History: Diabetes: Mother (HTN, TIIDM, Stroke), Heart Disease: Mother, CA: Father (Lung CA), Other: Mother Nephrology Consult - Height Height: 5 ft 5 in - Weight Weight: 180 lb 1.6 oz - BMI Body Mass Index (BMI): 29.9 - Lab Results CBC,BMP: CBC, BMP 05/21/18 06:10 05/21/18 06:10 Anion Gap: Anion Gap Anion Gap 7 MMOL/L (8-16) L 05/21/18 06:10 - Physical Examination Vital Signs: Vital Signs Temperature 98.1 F 05/21/18 18:26 Pulse Rate 89 05/21/18 18:26 Respiratory Rate 18 05/21/18 18:26 Blood Pressure 132/68 05/21/18 18:26 O2 Sat by Pulse Oximetry (%) 98 05/21/18 13:00 Assessment/Plan Acute Kidney Injury 2/2 prerenal factors COPD EXACERBATION/CHEST PAIN/COUGH h/o PE on eliquis HTN, Sickle Cell Disease, Chronic Back Pain, Substance Abuse (prescription) Plan- IVF then oral rehydration Plan- IVF 75 cc per hour
[2018-05-21] MEDS: SODIUM CHLORIDE 1,000 ML IV SCH (18:49)
[2018-05-21] MEDS: guaiFENesin/D-METHORPHAN HB 10 ML UNIT-DOSE CUPS PO PRN (21:48)
[2018-05-21] MEDS: MONTELUKAST NA 10 MG TABLET PO SCH (21:49)
[2018-05-21] MEDS: GABAPENTIN 300 MG CAPSULE (FP) PO SCH (21:49)
[2018-05-22] MEDS: methylPREDNISolone NA SUCC 40 MG/1 ML VIAL IVPUSH SCH ×3 (02:42→18:07)
[2018-05-22 07:26] LABS: ALK PHOS 113 U/L (45-117); ANION GAP 6 MMOL/L (8-16); BILIRUBIN,TOTAL 0.4 mg/dL (0.2-1); BLOOD UREA NITROGEN 15 mg/dL (7-18); CHLORIDE 104 mmol/L (98-107); CO2 31 mmol/L (21-32); CREATININE 1.1 mg/dL (0.55-1.3); GLUCOSE,RANDOM 157 mg/dL (74-106); SGOT/AST 11 U/L (15-37); SGPT/ALT < 6 U/L (13-61); SODIUM 141 mmol/L (136-145); TOT PROT 7.8 g/dl (6.4-8.2)
[2018-05-22] MEDS: ALBUTEROL SO4 2.5/IPRATROPIUM 0.5 INH SOL 3 ML VIAL.NEB. NEB SCH ×4 (07:40→20:49)
[2018-05-22 07:45] LABS: HEMATOCRIT 29.6 % (32.4-45.2); HEMOGLOBIN 9.8 GM/dL (10.7-15.3); MCHC 33.1 g/dl (32.0-36.0); MEAN CELL VOLUME 84.4 fl (80-96); MEAN PLT VOLUME 8.4 fl (7.5-11.1); PLATELET COUNT 335 K/MM3 (134-434); WHITE BLOOD COUNT 19.2 K/mm3 (4.0-10.0)
[2018-05-22] MEDS ORDERED: PT OWN MED DRAWER 7, Y5N ONE (09:57)
--- NOTE | 2018-05-22 10:33 | EKG ---
Test Reason : Blood Pressure : / mmHG Vent. Rate : 083 BPM Atrial Rate : 083 BPM P-R Int : 158 ms QRS Dur : 080 ms QT Int : 358 ms P-R-T Axes : 064 -19 052 degrees QTc Int : 420 ms SINUS RHYTHM WITH MARKED SINUS ARRHYTHMIA OTHERWISE NORMAL ECG WHEN COMPARED WITH ECG OF 21-JAN-2018 09:51, NO SIGNIFICANT CHANGE WAS FOUND Confirmed by LATISHA DAO, FILIPE ([id number]) on 05/22/2018 10:33:24 AM Referred By: Confirmed By:FILIPE GOOD MD
[2018-05-22] MEDS: AZITHROMYCIN 250 MG TABLET PO SCH (10:41)
[2018-05-22] MEDS: FOLIC ACID 1 MG TABLET (FP) PO SCH (10:42)
[2018-05-22] MEDS: APIXABAN 5 MG TABLET PO SCH ×2 (10:42→21:11)
[2018-05-22] MEDS: DULoxetine HCL 30 MG CAPSULE.DR (FP) PO SCH ×2 (10:42→21:10)
[2018-05-22] MEDS: DOCUSATE SODIUM 100 MG CAPSULE (FP) PO SCH ×2 (10:42→21:10)
[2018-05-22] MEDS: oxyCODONE HCL 40 MG SUSTAINED ACTING TABLET PO SCH ×2 (10:42→21:10)
[2018-05-22] MEDS: LOSARTAN POTASSIUM 50 MG TABLET (FP) PO SCH (10:44)
[2018-05-22] MEDS: BUDESONIDE/FORMETEROL FUMARATE 160/4.5 mcg INHALER IH SCH ×2 (10:45→21:24)
[2018-05-22] MEDS: SODIUM CHLORIDE 1,000 ML IV SCH (11:36)
[2018-05-22] MEDS: guaiFENesin/D-METHORPHAN HB 10 ML UNIT-DOSE CUPS PO PRN ×2 (11:46→21:16)
--- NOTE | 2018-05-22 11:47 | PN ---
Progress Note (short form) - Note Progress Note: Still with significant congested cough and [place]. No hemoptysis. No CP. Intake & Output 05/19/18 05/20/18 05/21/18 05/22/18 23:59 23:59 23:59 23:59 Intake Total 800 1200 Balance 800 1200 Weight 180 lb 1.6 oz 180 lb 1.6 oz Last Vital Signs Temp Pulse Resp BP Pulse Ox 97.8 F 85 19 133/64 96 05/22/18 10:00 05/22/18 10:00 05/22/18 10:00 05/22/18 10:00 05/21/18 21:00 Active Medications Acetaminophen (Tylenol -) 650 mg PO Q4H PRN PRN Reason: PAIN OR FEVER Albuterol Sulfate (Ventolin 0.083% Nebulizer Soln -) 1 amp NEB Q4H PRN PRN Reason: SHORT OF BREATH/WHEEZING Albuterol/Ipratropium (Duoneb -) 1 amp NEB RQID [facility] Last Admin: 05/22/18 07:40 Dose: 1 amp Apixaban (Eliquis -) 5 mg PO BID [facility] Last Admin: 05/22/18 10:42 Dose: 5 mg Azithromycin (Zithromax -) 500 mg PO DAILY [facility] Last Admin: 05/22/18 10:41 Dose: 500 mg Benzocaine/Menthol (Cepacol Lozenge -) 1 each MM PRN PRN PRN Reason: SORE THROAT Budesonide/Formoterol Fumarate (Symbicort 160/4.5mcg -) 1 puff IH BID [facility] Last Admin: 05/22/18 10:45 Dose: 1 puff Docusate Sodium (Colace -) 100 mg PO BID [facility] Last Admin: 05/22/18 10:42 Dose: 100 mg Duloxetine HCl (Cymbalta -) 30 mg PO BID [facility] Last Admin: 05/22/18 10:42 Dose: 30 mg Folic Acid (Folic Acid -) 1 mg PO DAILY [facility] Last Admin: 05/22/18 10:42 Dose: 1 mg Gabapentin (Neurontin -) 300 mg PO HS [facility] Last Admin: 05/21/18 21:49 Dose: 300 mg Guaifenesin (Robitussin Dm -) 10 ml PO Q4H PRN PRN Reason: COUGH Last Admin: 05/21/18 21:48 Dose: 10 ml Losartan Potassium (Cozaar -) 50 mg PO DAILY [facility] Last Admin: 05/22/18 10:44 Dose: 50 mg Methylprednisolone Sodium Succinate (Solu-Medrol -) 40 mg IVPUSH Q8H-IV [facility] Last Admin: 05/22/18 10:41 Dose: 40 mg Montelukast Sodium (Singulair -) 10 mg PO HS [facility] Last Admin: 05/21/18 21:49 Dose: 10 mg Oxycodone HCl (Roxicodone -) 30 mg PO Q6H PRN PRN Reason: PAIN LEVEL 7 - 10 Oxycodone HCl (Oxycontin -) 40 mg PO BID [facility] Last Admin: 05/22/18 10:42 Dose: 40 mg Constitutional: Yes: Awake and alert, NAD, congested cough Eyes: Yes: Conjunctiva Clear, EOM Intact HENT: Yes: Atraumatic, Normocephalic Neck: Yes: Supple, Trachea Midline Cardiovascular: Yes: Regular Rate and Rhythm Respiratory: Yes: Bilateral coarse Rhonchi and expiratory wheezes ...Clubbing: No Gastrointestinal: Yes: Normal Bowel Sounds, Soft. No: Tenderness Edema: No Neurological: Yes: Alert, Oriented Labs: Laboratory Results - last 24 hr 05/21/18 05/22/18 05/22/18 11:15 06:10 06:10 WBC 19.2 H RBC 3.50 L Hgb 9.8 L Hct 29.6 L MCV 84.4 MCH 28.0 MCHC 33.1 RDW 18.0 H Plt Count 335 MPV 8.4 Neutrophils % No Result Required. Lymphocytes % No Result Required. Nucleated RBC % 1 H Sodium 141 Potassium 4.0 Chloride 104 Carbon Dioxide 31 Anion Gap 6 L BUN 15 Creatinine 1.1 Creat Clearance w eGFR 48.55 Random Glucose 157 H Calcium 8.0 L Total Bilirubin 0.4 AST 11 L ALT < 6 L Alkaline Phosphatase 113 Total Protein 7.8 Albumin 3.0 L Influenza A (Rapid) Negative Influenza B (Rapid) Negative Problem List - Problems (1) COPD exacerbation Code(s): J44.1 - CHRONIC OBSTRUCTIVE PULMONARY DISEASE W (ACUTE) EXACERBATION (2) GUCCI (acute kidney injury) Code(s): N17.9 - ACUTE KIDNEY FAILURE, UNSPECIFIED (3) HTN (hypertension) Code(s): I10 - ESSENTIAL (PRIMARY) HYPERTENSION Qualifiers: Hypertension type: essential hypertension Qualified Code(s): I10 - Essential (primary) hypertension Assessment/Plan Acute COPD Exacerbation Acute Bronchitis Acute Kidney Injury h/o PE HTN - IV medrol - inhaled bronchodilators standing and PRN - cough suppressants - O2 to keep SpO2 >90% - continue anticoagulation - outpt PFTs - DVT prophylaxis - Zithromax Dr Almaguer
[2018-05-22] MEDS: oxyCODONE HCL 5 MG TABLET PO PRN (14:05)
[2018-05-22 14:50] LABS: ANISOCYTOSIS 0; MACROCYTOSIS 0; PLATELET ESTIMATE NORMAL; TARGET CELLS 2+
--- NOTE | 2018-05-22 15:41 | PN ---
Progress Note, Physician Chief Complaint: COPD Exacerbation Sickle Cell Anemia GUCCI History of Present Illness: Previous notes and events reviewed awake and alert NAD complain of cough - Current Medication List Current Medications: Active Medications Acetaminophen (Tylenol -) 650 mg PO Q4H PRN PRN Reason: PAIN OR FEVER Albuterol Sulfate (Ventolin 0.083% Nebulizer Soln -) 1 amp NEB Q4H PRN PRN Reason: SHORT OF BREATH/WHEEZING Albuterol/Ipratropium (Duoneb -) 1 amp NEB RQID [facility] Last Admin: 05/22/18 15:24 Dose: 1 amp Apixaban (Eliquis -) 5 mg PO BID [facility] Last Admin: 05/22/18 10:42 Dose: 5 mg Azithromycin (Zithromax -) 500 mg PO DAILY [facility] Last Admin: 05/22/18 10:41 Dose: 500 mg Benzocaine/Menthol (Cepacol Lozenge -) 1 each MM PRN PRN PRN Reason: SORE THROAT Budesonide/Formoterol Fumarate (Symbicort 160/4.5mcg -) 1 puff IH BID [facility] Last Admin: 05/22/18 10:45 Dose: 1 puff Docusate Sodium (Colace -) 100 mg PO BID [facility] Last Admin: 05/22/18 10:42 Dose: 100 mg Duloxetine HCl (Cymbalta -) 30 mg PO BID [facility] Last Admin: 05/22/18 10:42 Dose: 30 mg Folic Acid (Folic Acid -) 1 mg PO DAILY [facility] Last Admin: 05/22/18 10:42 Dose: 1 mg Gabapentin (Neurontin -) 300 mg PO [facility] Last Admin: 05/21/18 21:49 Dose: 300 mg Guaifenesin (Robitussin Dm -) 10 ml PO Q4H PRN PRN Reason: COUGH Last Admin: 05/22/18 11:46 Dose: 10 ml Losartan Potassium (Cozaar -) 50 mg PO DAILY [facility] Last Admin: 05/22/18 10:44 Dose: 50 mg Methylprednisolone Sodium Succinate (Solu-Medrol -) 40 mg IVPUSH Q8H-IV [facility] Last Admin: 05/22/18 10:41 Dose: 40 mg Montelukast Sodium (Singulair -) 10 mg PO [facility] Last Admin: 05/21/18 21:49 Dose: 10 mg Oxycodone HCl (Roxicodone -) 30 mg PO Q6H PRN PRN Reason: PAIN LEVEL 7 - 10 Last Admin: 05/22/18 14:05 Dose: 30 mg Oxycodone HCl (Oxycontin -) 40 mg PO BID [facility] Last Admin: 05/22/18 10:42 Dose: 40 mg - Objective Vital Signs: Vital Signs Temperature 98.8 F 05/22/18 13:08 Pulse Rate 84 05/22/18 13:08 Respiratory Rate 18 05/22/18 13:08 Blood Pressure 131/71 05/22/18 13:08 O2 Sat by Pulse Oximetry (%) 96 05/22/18 09:00 Constitutional: Yes: No Distress, Calm Eyes: Yes: Conjunctiva Clear HENT: Yes: Atraumatic Cardiovascular: Yes: Regular Rate and Rhythm Respiratory: Yes: Regular, CTA Bilaterally Gastrointestinal: Yes: Normal Bowel Sounds, Soft Musculoskeletal: Yes: WNL Extremities: Yes: WNL Edema: No Neurological: Yes: Alert, Oriented Psychiatric: Yes: Alert, Oriented Labs: CBC, BMP 05/22/18 06:10 05/22/18 06:10 INR, PTT INR 1.64 (0.83-1.09) H 05/20/18 16:46 - ....Imaging Chest X-ray: Report Reviewed Problem List - Problems (1) GUCCI (acute kidney injury) Assessment/Plan: -neuro on board -improved after IV hydration -BUN/Cr Code(s): N17.9 - ACUTE KIDNEY FAILURE, UNSPECIFIED (2) COPD exacerbation Assessment/Plan: -pulm on board -keep SpO2 >90% -O2 via NC for SOB -bronchodilators -IV Solumedrol -IV Zithromax -Symbicort Code(s): J44.1 - CHRONIC OBSTRUCTIVE PULMONARY DISEASE W (ACUTE) EXACERBATION (3) Leukocytosis Assessment/Plan: -WBC 19.2 -IV Zithromax -2/2 IV steroids vs infection ? Code(s): D72.829 - ELEVATED WHITE BLOOD CELL COUNT, UNSPECIFIED (4) Sickle cell anemia Assessment/Plan: -Retic 2.14 -conntinue Folic Acid -O2 via NC -pain management Code(s): D57.1 - SICKLE-CELL DISEASE WITHOUT CRISIS Qualifiers: Sickle-cell associated disorders: without crisis Qualified Code(s): D57.1 - Sickle-cell disease without crisis (5) HTN (hypertension) Assessment/Plan: -continue Losartan -low Na diet Code(s): I10 - ESSENTIAL (PRIMARY) HYPERTENSION Qualifiers: Hypertension type: essential hypertension Qualified Code(s): I10 - Essential (primary) hypertension Assessment/Plan see problem list dvt ppx
--- NOTE | 2018-05-22 17:20 | PN ---
Progress Note (short form) - Note Progress Note: Renal follow up for GUCCI Pt seen and examined at the bedside no acute complaints on IVF no sob, cp, abd pain, N/V/D making urine Vital Signs Temperature 98.8 F 05/22/18 13:08 Pulse Rate 84 05/22/18 13:08 Respiratory Rate 18 05/22/18 13:08 Blood Pressure 131/71 05/22/18 13:08 O2 Sat by Pulse Oximetry (%) 96 05/22/18 09:00 Intake & Output 05/19/18 05/20/18 05/21/18 05/22/18 23:59 23:59 23:59 23:59 Intake Total 800 1200 Balance 800 1200 Weight 81.692 kg 81.692 kg NAD awake and alert neck supple, no JVD RRR, No M/R CTA, no rales or wheeze soft NT/ND no LE edema CBC, BMP 05/22/18 06:10 05/22/18 06:10 Current Medications Acetaminophen (Tylenol -) 650 mg PO Q4H PRN PRN Reason: PAIN OR FEVER Albuterol Sulfate (Ventolin 0.083% Nebulizer Soln -) 1 amp NEB Q4H PRN PRN Reason: SHORT OF BREATH/WHEEZING Albuterol/Ipratropium (Duoneb -) 1 amp NEB RQID [facility] Last Admin: 05/22/18 15:24 Dose: 1 amp Apixaban (Eliquis -) 5 mg PO BID [facility] Last Admin: 05/22/18 10:42 Dose: 5 mg Azithromycin (Zithromax -) 500 mg PO DAILY [facility] Last Admin: 05/22/18 10:41 Dose: 500 mg Benzocaine/Menthol (Cepacol Lozenge -) 1 each MM PRN PRN PRN Reason: SORE THROAT Budesonide/Formoterol Fumarate (Symbicort 160/4.5mcg -) 1 puff IH BID [facility] Last Admin: 05/22/18 10:45 Dose: 1 puff Docusate Sodium (Colace -) 100 mg PO BID [facility] Last Admin: 05/22/18 10:42 Dose: 100 mg Duloxetine HCl (Cymbalta -) 30 mg PO BID [facility] Last Admin: 05/22/18 10:42 Dose: 30 mg Folic Acid (Folic Acid -) 1 mg PO DAILY [facility] Last Admin: 05/22/18 10:42 Dose: 1 mg Gabapentin (Neurontin -) 300 mg PO HS [facility] Last Admin: 05/21/18 21:49 Dose: 300 mg Guaifenesin (Robitussin Dm -) 10 ml PO Q4H PRN PRN Reason: COUGH Last Admin: 05/22/18 11:46 Dose: 10 ml Losartan Potassium (Cozaar -) 50 mg PO DAILY [facility] Last Admin: 05/22/18 10:44 Dose: 50 mg Methylprednisolone Sodium Succinate (Solu-Medrol -) 40 mg IVPUSH Q8H-IV [facility] Last Admin: 05/22/18 10:41 Dose: 40 mg Montelukast Sodium (Singulair -) 10 mg PO HS [facility] Last Admin: 05/21/18 21:49 Dose: 10 mg Oxycodone HCl (Roxicodone -) 30 mg PO Q6H PRN PRN Reason: PAIN LEVEL 7 - 10 Last Admin: 05/22/18 14:05 Dose: 30 mg Oxycodone HCl (Oxycontin -) 40 mg PO BID [facility] Last Admin: 05/22/18 10:42 Dose: 40 mg 73 year old woman with hx of COPD, Asthma, PE on eliquis, sickle cell disease presented with sob and found to have GUCCI. #GUCCI now reolving from volume depletion #COPD exacerbation #PE on A/C Renal function now improved can d/c IVF and trend function on oral intake alone continue losartan trend BUN/Cr and electrolytes Enrique Flores DO
[2018-05-22] MEDS: GABAPENTIN 300 MG CAPSULE (FP) PO SCH (21:10)
[2018-05-22] MEDS: MONTELUKAST NA 10 MG TABLET PO SCH (21:11)
[2018-05-23] MEDS: methylPREDNISolone NA SUCC 40 MG/1 ML VIAL IVPUSH SCH ×3 (02:04→17:05)
[2018-05-23] MEDS: oxyCODONE HCL 5 MG TABLET PO PRN ×2 (02:16→15:00)
[2018-05-23] MEDS: guaiFENesin/D-METHORPHAN HB 10 ML UNIT-DOSE CUPS PO PRN ×2 (02:16→12:15)
[2018-05-23] MEDS: ALBUTEROL SO4 2.5/IPRATROPIUM 0.5 INH SOL 3 ML VIAL.NEB. NEB SCH ×4 (07:35→20:50)
[2018-05-23 08:15] LABS: HEMATOCRIT 29.5 % (32.4-45.2); HEMOGLOBIN 10.1 GM/dL (10.7-15.3); MCH 28.7 pg (25.7-33.7); MCHC 34.3 g/dl (32.0-36.0); MEAN CELL VOLUME 83.5 fl (80-96); MEAN PLT VOLUME 8.4 fl (7.5-11.1); PLATELET COUNT 324 K/MM3 (134-434); RBC 3.54 M/mm3 (3.60-5.2); RDW 17.7 % (11.6-15.6); WHITE BLOOD COUNT 19.4 K/mm3 (4.0-10.0)
[2018-05-23 10:34] LABS: GLUCOSE,RANDOM 158 mg/dL (74-106)
[2018-05-23 10:35] LABS: ANION GAP 6 MMOL/L (8-16); BLOOD UREA NITROGEN 14 mg/dL (7-18); CHLORIDE 103 mmol/L (98-107); CO2 27 mmol/L (21-32); POTASSIUM 4.7 mmol/L (3.5-5.1); SODIUM 136 mmol/L (136-145)
[2018-05-23 10:36] LABS: ALK PHOS 98 U/L (45-117); BILIRUBIN,TOTAL 0.4 mg/dL (0.2-1); CALCIUM 8.5 mg/dL (8.5-10.1); SGOT/AST 22 U/L (15-37); SGPT/ALT 9 U/L (13-61); TOT PROT 8.4 g/dl (6.4-8.2)
[2018-05-23] MEDS: LOSARTAN POTASSIUM 50 MG TABLET (FP) PO SCH (11:11)
[2018-05-23] MEDS: oxyCODONE HCL 40 MG SUSTAINED ACTING TABLET PO SCH ×2 (11:11→21:55)
[2018-05-23] MEDS: AZITHROMYCIN 250 MG TABLET PO SCH (11:11)
[2018-05-23] MEDS: FOLIC ACID 1 MG TABLET (FP) PO SCH (11:12)
[2018-05-23] MEDS: APIXABAN 5 MG TABLET PO SCH ×2 (11:12→21:55)
[2018-05-23] MEDS: DULoxetine HCL 30 MG CAPSULE.DR (FP) PO SCH ×2 (11:12→21:55)
[2018-05-23] MEDS: DOCUSATE SODIUM 100 MG CAPSULE (FP) PO SCH ×2 (11:12→21:56)
[2018-05-23] MEDS: BUDESONIDE/FORMETEROL FUMARATE 160/4.5 mcg INHALER IH SCH ×2 (11:21→22:01)
--- NOTE | 2018-05-23 12:09 | PN ---
Progress Note (short form) - Note Progress Note: Renal follow up for GUCCI Pt seen and examined at the bedside no acute complaints denies any sob, cp, abd pain making urine Vital Signs Temperature 98.9 F 05/23/18 06:10 Pulse Rate 93 H 05/23/18 06:10 Respiratory Rate 20 05/23/18 06:10 Blood Pressure 130/80 05/23/18 06:10 O2 Sat by Pulse Oximetry (%) 97 05/22/18 21:00 Intake & Output 05/20/18 05/21/18 05/22/18 05/23/18 23:59 23:59 23:59 23:59 Intake Total 800 2690 505 Balance 800 2690 505 Weight 81.692 kg 81.692 kg NAD awake and alert neck supple, no JVD RRR, No M/R CTA, no rales or wheeze soft NT/ND no LE edema CBC, BMP 05/23/18 07:30 05/23/18 07:30 Current Medications Acetaminophen (Tylenol -) 650 mg PO Q4H PRN PRN Reason: PAIN OR FEVER Albuterol Sulfate (Ventolin 0.083% Nebulizer Soln -) 1 amp NEB Q4H PRN PRN Reason: SHORT OF BREATH/WHEEZING Albuterol/Ipratropium (Duoneb -) 1 amp NEB RQID [facility] Last Admin: 05/23/18 07:35 Dose: 1 amp Apixaban (Eliquis -) 5 mg PO BID [facility] Last Admin: 05/23/18 11:12 Dose: 5 mg Azithromycin (Zithromax -) 500 mg PO DAILY [facility] Last Admin: 05/23/18 11:11 Dose: 500 mg Benzocaine/Menthol (Cepacol Lozenge -) 1 each MM PRN PRN PRN Reason: SORE THROAT Budesonide/Formoterol Fumarate (Symbicort 160/4.5mcg -) 1 puff IH BID [facility] Last Admin: 05/23/18 11:21 Dose: 1 puff Docusate Sodium (Colace -) 100 mg PO BID [facility] Last Admin: 05/23/18 11:12 Dose: 100 mg Duloxetine HCl (Cymbalta -) 30 mg PO BID [facility] Last Admin: 05/23/18 11:12 Dose: 30 mg Folic Acid (Folic Acid -) 1 mg PO DAILY [facility] Last Admin: 05/23/18 11:12 Dose: 1 mg Gabapentin (Neurontin -) 300 mg PO HS [facility] Last Admin: 05/22/18 21:10 Dose: 300 mg Guaifenesin (Robitussin Dm -) 10 ml PO Q4H PRN PRN Reason: COUGH Last Admin: 05/23/18 02:16 Dose: 10 ml Losartan Potassium (Cozaar -) 50 mg PO DAILY [facility] Last Admin: 05/23/18 11:11 Dose: 50 mg Methylprednisolone Sodium Succinate (Solu-Medrol -) 40 mg IVPUSH Q8H-IV [facility] Last Admin: 05/23/18 11:12 Dose: 40 mg Montelukast Sodium (Singulair -) 10 mg PO HS [facility] Last Admin: 05/22/18 21:11 Dose: 10 mg Oxycodone HCl (Roxicodone -) 30 mg PO Q6H PRN PRN Reason: PAIN LEVEL 7 - 10 Last Admin: 05/23/18 02:16 Dose: 30 mg Oxycodone HCl (Oxycontin -) 40 mg PO BID [facility] Last Admin: 05/23/18 11:11 Dose: 40 mg 73 year old woman with hx of COPD, Asthma, PE on eliquis, sickle cell disease presented with sob and found to have GUCCI. #GUCCI now reolving from volume depletion #COPD exacerbation #PE on A/C Renal function improved and stable maintain losartan at present dose will sign off case at this time, please call with any questions or concerns Enrique Flores DO
--- NOTE | 2018-05-23 12:45 | PN ---
Progress Note, Physician History of Present Illness: PULMONARY ALERT,STILL CONGESTED ,+ COUGH - Current Medication List Current Medications: Active Medications Acetaminophen (Tylenol -) 650 mg PO Q4H PRN PRN Reason: PAIN OR FEVER Albuterol Sulfate (Ventolin 0.083% Nebulizer Soln -) 1 amp NEB Q4H PRN PRN Reason: SHORT OF BREATH/WHEEZING Albuterol/Ipratropium (Duoneb -) 1 amp NEB RQID [facility] Last Admin: 05/23/18 11:35 Dose: 1 amp Apixaban (Eliquis -) 5 mg PO BID [facility] Last Admin: 05/23/18 11:12 Dose: 5 mg Azithromycin (Zithromax -) 500 mg PO DAILY [facility] Last Admin: 05/23/18 11:11 Dose: 500 mg Benzocaine/Menthol (Cepacol Lozenge -) 1 each MM PRN PRN PRN Reason: SORE THROAT Budesonide/Formoterol Fumarate (Symbicort 160/4.5mcg -) 1 puff IH BID [facility] Last Admin: 05/23/18 11:21 Dose: 1 puff Docusate Sodium (Colace -) 100 mg PO BID [facility] Last Admin: 05/23/18 11:12 Dose: 100 mg Duloxetine HCl (Cymbalta -) 30 mg PO BID [facility] Last Admin: 05/23/18 11:12 Dose: 30 mg Folic Acid (Folic Acid -) 1 mg PO DAILY [facility] Last Admin: 05/23/18 11:12 Dose: 1 mg Gabapentin (Neurontin -) 300 mg PO HS [facility] Last Admin: 05/22/18 21:10 Dose: 300 mg Guaifenesin (Robitussin Dm -) 10 ml PO Q4H PRN PRN Reason: COUGH Last Admin: 05/23/18 12:15 Dose: 10 ml Losartan Potassium (Cozaar -) 50 mg PO DAILY [facility] Last Admin: 05/23/18 11:11 Dose: 50 mg Methylprednisolone Sodium Succinate (Solu-Medrol -) 40 mg IVPUSH Q8H-IV [facility] Last Admin: 05/23/18 11:12 Dose: 40 mg Montelukast Sodium (Singulair -) 10 mg PO HS [facility] Last Admin: 05/22/18 21:11 Dose: 10 mg Oxycodone HCl (Roxicodone -) 30 mg PO Q6H PRN PRN Reason: PAIN LEVEL 7 - 10 Last Admin: 05/23/18 02:16 Dose: 30 mg Oxycodone HCl (Oxycontin -) 40 mg PO BID [facility] Last Admin: 05/23/18 11:11 Dose: 40 mg - Objective Vital Signs: Vital Signs Temperature 98.9 F 05/23/18 06:10 Pulse Rate 93 H 05/23/18 06:10 Respiratory Rate 20 05/23/18 06:10 Blood Pressure 130/80 05/23/18 06:10 O2 Sat by Pulse Oximetry (%) 97 05/22/18 21:00 Constitutional: Yes: Well Nourished, Calm Eyes: Yes: WNL HENT: Yes: WNL Neck: Yes: WNL Cardiovascular: Yes: Regular Rate and Rhythm, S1, S2 Respiratory: Yes: Rhonchi, Wheezes (BILATERAL WHEEZES AND RHONCHI) Gastrointestinal: Yes: Normal Bowel Sounds, Soft Extremities: Yes: WNL Edema: No Labs: CBC, BMP 05/23/18 07:30 05/23/18 07:30 INR, PTT INR 1.64 (0.83-1.09) H 05/20/18 16:46 Assessment/Plan Problem List - Problems (1) COPD exacerbation Code(s): J44.1 - CHRONIC OBSTRUCTIVE PULMONARY DISEASE W (ACUTE) EXACERBATION (2) GUCCI (acute kidney injury) Code(s): N17.9 - ACUTE KIDNEY FAILURE, UNSPECIFIED (3) HTN (hypertension) Code(s): I10 - ESSENTIAL (PRIMARY) HYPERTENSION Qualifiers: Hypertension type: essential hypertension Qualified Code(s): I10 - Essential (primary) hypertension Assessment/Plan Acute COPD Exacerbation Acute Bronchitis Acute Kidney Injury h/o PE HTN - IV medrol same dose - inhaled bronchodilators standing and PRN - cough suppressants - O2 to keep SpO2 >90% - continue anticoagulation - outpt PFTs - DVT prophylaxis - Zithromax DR PANDEY
--- NOTE | 2018-05-23 14:36 | PN ---
Progress Note, Physician Chief Complaint: COPD Exacerbation Sickle Cell Anemia GUCCI History of Present Illness: Previous notes and events reviewed awake and alert NAD sts having productive cough complain of left lower back pain - Current Medication List Current Medications: Active Medications Acetaminophen (Tylenol -) 650 mg PO Q4H PRN PRN Reason: PAIN OR FEVER Albuterol Sulfate (Ventolin 0.083% Nebulizer Soln -) 1 amp NEB Q4H PRN PRN Reason: SHORT OF BREATH/WHEEZING Albuterol/Ipratropium (Duoneb -) 1 amp NEB RQID [facility] Last Admin: 05/23/18 11:35 Dose: 1 amp Apixaban (Eliquis -) 5 mg PO BID [facility] Last Admin: 05/23/18 11:12 Dose: 5 mg Azithromycin (Zithromax -) 500 mg PO DAILY [facility] Last Admin: 05/23/18 11:11 Dose: 500 mg Benzocaine/Menthol (Cepacol Lozenge -) 1 each MM PRN PRN PRN Reason: SORE THROAT Budesonide/Formoterol Fumarate (Symbicort 160/4.5mcg -) 1 puff IH BID [facility] Last Admin: 05/23/18 11:21 Dose: 1 puff Docusate Sodium (Colace -) 100 mg PO BID [facility] Last Admin: 05/23/18 11:12 Dose: 100 mg Duloxetine HCl (Cymbalta -) 30 mg PO BID [facility] Last Admin: 05/23/18 11:12 Dose: 30 mg Folic Acid (Folic Acid -) 1 mg PO DAILY [facility] Last Admin: 05/23/18 11:12 Dose: 1 mg Gabapentin (Neurontin -) 300 mg PO HS [facility] Last Admin: 05/22/18 21:10 Dose: 300 mg Guaifenesin (Robitussin Dm -) 10 ml PO Q4H PRN PRN Reason: COUGH Last Admin: 05/23/18 12:15 Dose: 10 ml Losartan Potassium (Cozaar -) 50 mg PO DAILY [facility] Last Admin: 05/23/18 11:11 Dose: 50 mg Methylprednisolone Sodium Succinate (Solu-Medrol -) 40 mg IVPUSH Q8H-IV [facility] Last Admin: 05/23/18 11:12 Dose: 40 mg Montelukast Sodium (Singulair -) 10 mg PO [facility] Last Admin: 05/22/18 21:11 Dose: 10 mg Oxycodone HCl (Roxicodone -) 30 mg PO Q6H PRN PRN Reason: PAIN LEVEL 7 - 10 Last Admin: 05/23/18 02:16 Dose: 30 mg Oxycodone HCl (Oxycontin -) 40 mg PO BID [facility] Last Admin: 05/23/18 11:11 Dose: 40 mg - Objective Vital Signs: Vital Signs Temperature 99.0 F 05/23/18 14:19 Pulse Rate 89 05/23/18 14:19 Respiratory Rate 24 H 05/23/18 14:19 Blood Pressure 147/79 05/23/18 14:19 O2 Sat by Pulse Oximetry (%) 97 05/22/18 21:00 Constitutional: Yes: No Distress, Calm Eyes: Yes: Conjunctiva Clear HENT: Yes: Atraumatic Cardiovascular: Yes: Regular Rate and Rhythm Respiratory: Yes: Rhonchi Gastrointestinal: Yes: Normal Bowel Sounds, Soft Musculoskeletal: Yes: WNL Extremities: Yes: WNL Edema: No Neurological: Yes: Alert, Oriented Psychiatric: Yes: Alert, Oriented Labs: CBC, BMP 05/23/18 07:30 05/23/18 07:30 INR, PTT INR 1.64 (0.83-1.09) H 05/20/18 16:46 Problem List - Problems (1) GUCCI (acute kidney injury) Assessment/Plan: -neuro on board -improved after IV hydration -BUN/Cr 14/1.0 Code(s): N17.9 - ACUTE KIDNEY FAILURE, UNSPECIFIED (2) COPD exacerbation Assessment/Plan: -pulm on board -keep SpO2 >90% -O2 via NC for SOB -bronchodilators -IV Solumedrol -IV Zithromax -Symbicort Code(s): J44.1 - CHRONIC OBSTRUCTIVE PULMONARY DISEASE W (ACUTE) EXACERBATION (3) Leukocytosis Assessment/Plan: -WBC 19.4 -IV Zithromax -2/2 IV steroids vs infection ? -repeat CXR ordered -afebrile -UA, Urine Culture ordered--if positive will consult ID Code(s): D72.829 - ELEVATED WHITE BLOOD CELL COUNT, UNSPECIFIED (4) Sickle cell anemia Assessment/Plan: -Retic 2.14 -conntinue Folic Acid -O2 via NC -pain management Code(s): D57.1 - SICKLE-CELL DISEASE WITHOUT CRISIS Qualifiers: Sickle-cell associated disorders: without crisis Qualified Code(s): D57.1 - Sickle-cell disease without crisis (5) HTN (hypertension) Assessment/Plan: -continue Losartan -low Na diet Code(s): I10 - ESSENTIAL (PRIMARY) HYPERTENSION Qualifiers: Hypertension type: essential hypertension Qualified Code(s): I10 - Essential (primary) hypertension Assessment/Plan see problem list dvt ppx
[2018-05-23] MEDS ORDERED: DEXTROSE 5%-WATER - 50 ML IVPB ONE (18:16)
[2018-05-23] MEDS ORDERED: cefTRIAXone SODIUM 1 GM VIAL ONE (18:16)
[2018-05-23] MEDS: CEFTRIAXONE 1 GM in DEXTROSE 5%-WATER - 50 ML IVPB SCH (18:22)
[2018-05-23] MEDS: GABAPENTIN 300 MG CAPSULE (FP) PO SCH (21:54)
[2018-05-23] MEDS: MONTELUKAST NA 10 MG TABLET PO SCH (21:55)
[2018-05-24] MEDS: methylPREDNISolone NA SUCC 40 MG/1 ML VIAL IVPUSH SCH ×3 (02:28→22:08)
[2018-05-24] MEDS: guaiFENesin/D-METHORPHAN HB 10 ML UNIT-DOSE CUPS PO PRN ×3 (02:29→22:11)
[2018-05-24 03:59] LABS: URINE APPEARANCE CLEAR; URINE BILIRUBIN NEGATIVE (NEGATIVE); URINE COLOR YELLOW; URINE GLUCOSE (UA) NEGATIVE (NEGATIVE); URINE KETONE NEGATIVE (NEGATIVE); URINE LEUK ESTERASE NEGATIVE (NEGATIVE); URINE NITRITE NEGATIVE (NEGATIVE); URINE PROTEIN NEGATIVE (NEGATIVE)
[2018-05-24 07:36] LABS: HEMATOCRIT 29.7 % (32.4-45.2); MCH 28.4 pg (25.7-33.7); MCHC 33.7 g/dl (32.0-36.0); MEAN CELL VOLUME 84.3 fl (80-96); MEAN PLT VOLUME 8.2 fl (7.5-11.1); PLATELET COUNT 330 K/MM3 (134-434); RBC 3.52 M/mm3 (3.60-5.2); RDW 17.8 % (11.6-15.6)
[2018-05-24 08:02] LABS: ALK PHOS 106 U/L (45-117); ANION GAP 7 MMOL/L (8-16); BILIRUBIN,TOTAL 0.5 mg/dL (0.2-1); BLOOD UREA NITROGEN 14 mg/dL (7-18); CALCIUM 8.8 mg/dL (8.5-10.1); CHLORIDE 103 mmol/L (98-107); CO2 30 mmol/L (21-32); CREATININE 1.1 mg/dL (0.55-1.3); GLUCOSE,RANDOM 194 mg/dL (74-106); POTASSIUM 4.6 mmol/L (3.5-5.1); SGOT/AST 18 U/L (15-37); SGPT/ALT 9 U/L (13-61); SODIUM 139 mmol/L (136-145); TOT PROT 7.6 g/dl (6.4-8.2)
[2018-05-24] MEDS: ALBUTEROL SO4 2.5/IPRATROPIUM 0.5 INH SOL 3 ML VIAL.NEB. NEB SCH ×4 (08:10→21:48)
--- NOTE | 2018-05-24 08:57 | PN ---
Progress Note, Physician - Current Medication List Current Medications: Active Medications Acetaminophen (Tylenol -) 650 mg PO Q4H PRN PRN Reason: PAIN OR FEVER Albuterol Sulfate (Ventolin 0.083% Nebulizer Soln -) 1 amp NEB Q4H PRN PRN Reason: SHORT OF BREATH/WHEEZING Albuterol/Ipratropium (Duoneb -) [address] [facility] Last Admin: 05/24/18 08:10 Dose: 1 amp Apixaban (Eliquis -) [address] [facility] Last Admin: 05/23/18 21:55 Dose: 5 mg Azithromycin (Zithromax -) [address] [facility] Last Admin: 05/23/18 11:11 Dose: 500 mg Benzocaine/Menthol (Cepacol Lozenge -) 1 each MM PRN PRN PRN Reason: SORE THROAT Budesonide/Formoterol Fumarate (Symbicort 160/4.5mcg -) [address] [facility] Last Admin: 05/23/18 22:01 Dose: 1 puff Docusate Sodium (Colace -) [address] [facility] Last Admin: 05/23/18 21:56 Dose: 100 mg Duloxetine HCl (Cymbalta -) [address] [facility] Last Admin: 05/23/18 21:55 Dose: 30 mg Folic Acid (Folic Acid -) [address] [facility] Last Admin: 05/23/18 11:12 Dose: 1 mg Gabapentin (Neurontin -) [address] [facility] Last Admin: 05/23/18 21:54 Dose: 300 mg Guaifenesin (Robitussin Dm -) 10 ml PO Q4H PRN PRN Reason: COUGH Last Admin: 05/24/18 02:29 Dose: 10 ml Ceftriaxone Sodium 1 gm/ (Dextrose) 50 mls @ 100 mls/hr IVPB DAILY [facility]; Protocol Last Admin: 05/23/18 18:22 Dose: 100 mls/hr Losartan Potassium (Cozaar -) [address] [facility] Last Admin: 05/23/18 11:11 Dose: 50 mg Methylprednisolone Sodium Succinate (Solu-Medrol -) 40 [address] IVPUSH Q8H-IV [facility] Last Admin: 05/24/18 02:28 Dose: 40 mg Montelukast Sodium (Singulair -) [address] [facility] Last Admin: 04/16/19 21:55 Dose: 10 mg Oxycodone HCl (Oxycontin -) [address] [facility] Last Admin: 05/23/18 21:55 Dose: 40 mg - Objective Vital Signs: Vital Signs Temperature 98.1 F 05/24/18 06:00 Pulse Rate 82 05/24/18 06:00 Respiratory Rate 20 05/24/18 06:00 Blood Pressure 139/79 05/24/18 06:00 O2 Sat by Pulse Oximetry (%) 98 05/23/18 21:07 Labs: CBC, BMP 05/24/18 06:45 05/24/18 06:45 INR, PTT INR 1.64 (0.83-1.09) H 05/20/18 16:46 Problem List - Problems (1) GUCCI (acute kidney injury) Assessment/Plan: - -renal on board -improved after IV hydration -BUN/Cr 14/1.0 Code(s): N17.9 - ACUTE KIDNEY FAILURE, UNSPECIFIED (2) COPD exacerbation Assessment/Plan: -pulm on board -keep SpO2 >90% -O2 via NC for SOB -bronchodilators -IV Solumedrol taper -IV abx -Symbicort Code(s): J44.1 - CHRONIC OBSTRUCTIVE PULMONARY DISEASE W (ACUTE) EXACERBATION (3) HTN (hypertension) Code(s): I10 - ESSENTIAL (PRIMARY) HYPERTENSION Qualifiers: Hypertension type: essential hypertension Qualified Code(s): I10 - Essential (primary) hypertension (4) Leukocytosis Assessment/Plan: -WBC 18 -IV Zithromax -2/2 IV steroids -repeat CXR nad -afebrile -UA, Urine Culture Code(s): D72.829 - ELEVATED WHITE BLOOD CELL COUNT, UNSPECIFIED (5) Sickle cell anemia Assessment/Plan: -Retic 2.14 -conntinue Folic Acid -O2 via NC Code(s): D57.1 - SICKLE-CELL DISEASE WITHOUT CRISIS Qualifiers: Sickle-cell associated disorders: without crisis Qualified Code(s): D57.1 - Sickle-cell disease without crisis
[2018-05-24] MEDS ORDERED: cefTRIAXone SODIUM 1 GM VIAL ONE (09:42)
[2018-05-24] MEDS ORDERED: DEXTROSE 5%-WATER - 50 ML IVPB ONE (09:42)
[2018-05-24] MEDS: APIXABAN 5 MG TABLET PO SCH ×2 (09:47→22:05)
[2018-05-24] MEDS: CEFTRIAXONE 1 GM in DEXTROSE 5%-WATER - 50 ML IVPB SCH (09:47)
[2018-05-24] MEDS: DULoxetine HCL 30 MG CAPSULE.DR (FP) PO SCH ×2 (09:47→22:05)
[2018-05-24] MEDS: LOSARTAN POTASSIUM 50 MG TABLET (FP) PO SCH (09:48)
[2018-05-24] MEDS: DOCUSATE SODIUM 100 MG CAPSULE (FP) PO SCH ×2 (09:48→22:05)
[2018-05-24] MEDS: FOLIC ACID 1 MG TABLET (FP) PO SCH (09:49)
[2018-05-24] MEDS: oxyCODONE HCL 40 MG SUSTAINED ACTING TABLET PO SCH ×2 (09:49→22:05)
[2018-05-24] MEDS: BUDESONIDE/FORMETEROL FUMARATE 160/4.5 mcg INHALER IH SCH ×2 (10:00→22:09)
--- NOTE | 2018-05-24 11:59 | PN ---
Progress Note (short form) - Note Progress Note: ID CONSULT DICTATED TRACHEOBRONCHITIS R/O PNEUMONIA ?ACUTE CHEST SYNDROME SICKLE CELL DISEASE MULTIPLE ANTIBIOTIC ALLERGIES EMPIRIC ZITHROMAX/CEFTRIAXONE STEROIDS/ BRONCHODILATORS/ O2
[2018-05-24] MEDS ORDERED: AZITHROMYCIN IVPB 500 MG in DEXTROSE 5%-WATER - 250 ML IVPB SCH (12:45)
[2018-05-24] MEDS ORDERED: AZITHROMYCIN IVPB 500 MG/250 ML BAG IVPB SCH (13:08)
--- NOTE | 2018-05-24 13:24 | PN ---
Progress Note, Physician History of Present Illness: PULMONARY ALERT,NO DISTRESS,LESS CONGESTED,-CP - Current Medication List Current Medications: Active Medications Acetaminophen (Tylenol -) 650 mg PO Q4H PRN PRN Reason: PAIN OR FEVER Albuterol Sulfate (Ventolin 0.083% Nebulizer Soln -) 1 amp NEB Q4H PRN PRN Reason: SHORT OF BREATH/WHEEZING Albuterol/Ipratropium (Duoneb -) 1 amp NEB RQID [facility] Last Admin: 05/24/18 08:10 Dose: 1 amp Apixaban (Eliquis -) 5 mg PO BID [facility] Last Admin: 05/24/18 09:47 Dose: 5 mg Benzocaine/Menthol (Cepacol Lozenge -) 1 each MM PRN PRN PRN Reason: SORE THROAT Budesonide/Formoterol Fumarate (Symbicort 160/4.5mcg -) 1 puff IH BID [facility] Last Admin: 05/24/18 10:00 Dose: 1 puff Docusate Sodium (Colace -) 100 mg PO BID [facility] Last Admin: 05/24/18 09:48 Dose: 100 mg Duloxetine HCl (Cymbalta -) 30 mg PO BID [facility] Last Admin: 05/24/18 09:47 Dose: 30 mg Folic Acid (Folic Acid -) 1 mg PO DAILY [facility] Last Admin: 05/24/18 09:49 Dose: 1 mg Gabapentin (Neurontin -) 300 mg PO HS [facility] Last Admin: 05/23/18 21:54 Dose: 300 mg Guaifenesin (Robitussin Dm -) 10 ml PO Q4H PRN PRN Reason: COUGH Last Admin: 05/24/18 02:29 Dose: 10 ml Ceftriaxone Sodium 1 gm/ (Dextrose) 50 mls @ 100 mls/hr IVPB DAILY [facility]; Protocol Last Admin: 05/24/18 09:47 Dose: 100 mls/hr Azithromycin (Zithromax 500mg Ivpb (Pre-Docked)) 500 mg in 250 mls @ 250 mls/ hr IVPB DAILY [facility] Losartan Potassium (Cozaar -) 50 mg PO DAILY [facility] Last Admin: 05/24/18 09:48 Dose: 50 mg Methylprednisolone Sodium Succinate (Solu-Medrol -) 40 mg IVPUSH BID [facility] Last Admin: 05/24/18 09:48 Dose: 40 mg Montelukast Sodium (Singulair -) 10 mg PO [facility] Last Admin: 05/23/18 21:55 Dose: 10 mg Oxycodone HCl (Oxycontin -) 40 mg PO BID [facility] Last Admin: 05/24/18 09:49 Dose: 40 mg - Objective Vital Signs: Vital Signs Temperature 98.1 F 05/24/18 06:00 Pulse Rate 92 H 05/24/18 09:00 Respiratory Rate 18 05/24/18 09:00 Blood Pressure 146/100 05/24/18 09:00 O2 Sat by Pulse Oximetry (%) 98 05/23/18 21:07 Constitutional: Yes: Well Nourished, Calm Eyes: Yes: WNL HENT: Yes: WNL Neck: Yes: WNL, Tenderness Cardiovascular: Yes: S1, S2 Respiratory: Yes: Rhonchi (SCATTERED VINAYAK RHONCHI) Gastrointestinal: Yes: Normal Bowel Sounds, Soft Extremities: Yes: WNL Edema: No Labs: CBC, BMP 05/24/18 06:45 05/24/18 06:45 INR, PTT INR 1.64 (0.83-1.09) H 05/20/18 16:46 Assessment/Plan Problem List - Problems (1) COPD exacerbation Code(s): J44.1 - CHRONIC OBSTRUCTIVE PULMONARY DISEASE W (ACUTE) EXACERBATION (2) GUCCI (acute kidney injury) Code(s): N17.9 - ACUTE KIDNEY FAILURE, UNSPECIFIED (3) HTN (hypertension) Code(s): I10 - ESSENTIAL (PRIMARY) HYPERTENSION Qualifiers: Hypertension type: essential hypertension Qualified Code(s): I10 - Essential (primary) hypertension Assessment/Plan Acute COPD Exacerbation Acute Bronchitis Acute Kidney Injury h/o PE HTN - IV medrol same dose - inhaled bronchodilators standing and PRN - cough suppressants - O2 to keep SpO2 >90% - anticoagulation - outpt PFTs - DVT prophylaxis - ABX as per JAIMIE PANDEY
--- NOTE | 2018-05-24 14:40 | CONS ---
DATE OF CONSULTATION: DATE OF DICTATION: 05/24/2018 The patient is a 73-year-old female with a history of sickle cell disease, evaluated for possible pneumonia. She was admitted to the hospital on May 21, 2018, with a 3-day history of cough, sternal pleuritic-type chest pain. She was admitted to the hospital for an acute exacerbation of COPD. Chest x-ray was negative for acute infiltrate. She was empirically treated with Zithromax and prednisone. Patient continues to complain of cough, which is now dry in nature. She has sternal type pleuritic pain with cough and deep inspiration. She denies any associated fever or chills. The patient denies any ill contacts. No recent travel. Her last hospitalization was in January 2018. No associated fever or chills. She is a nonsmoker. She reports being up-to-date with influenza and pneumococcal vaccine. Past medical history positive for sickle cell disease, COPD, pulmonary embolism, hypertension. PAST SURGICAL HISTORY: Status post bilateral total knee replacements, cholecystectomy, hysterectomy. Allergies to multiple medications, including CIPROFLOXACIN, LEVAQUIN, CODEINE, PENICILLIN, and SULFA. She reports developing generalized pruritus with penicillin. She has tolerated cephalosporins in the past. Medications include folic acid, Colace, Singulair, Symbicort, Neurontin, Cozaar, Eliquis. SOCIAL HISTORY: Lives at home with her significant other. Nonsmoker. SYSTEMS REVIEW: Neurologic: No loss of consciousness, seizure activity, focal weakness. Cardiac: Negative palpitations. Respiratory: As per HPI. Gastrointestinal: Negative vomiting or diarrhea. Genitourinary: Negative for urinary tract infection. LABORATORY DATA: White count 18.0, hematocrit 29.7, platelets 330, BUN 14, creatinine 1.0. Urinalysis negative. Influenza swab negative. Chest x-ray: Elevated right hemidiaphragm. No acute infiltrate. PHYSICAL EXAMINATION: General: Patient is awake and responsive. She is noted to have cough. Vital Signs: Temperature 98.1. Blood pressure 139/79. Pulse 82, regular. Respiration 20 per minute. Eyes: Sclerae anicteric. Heart Sounds: S1, S2. Lungs: Coarse rhonchi bilaterally with mild wheezing anteriorly. No rales. Abdomen: Soft. No tenderness elicited. Extremities: Negative for edema. IMPRESSION: 1. Tracheobronchitis. Rule out early pneumonia. 2. Possible acute chest syndrome. 3. History of sickle cell disease. 4. Multiple antibiotic allergies. Obtain sputum culture. Empiric antibiotic coverage with Zithromax and ceftriaxone. Continue corticosteroids and inhaled bronchodilators. Will follow. Thank you for the kind referral. BRITT CHRISTIANSON M.D. JULIA/[id number]
[2018-05-24] MEDS: oxyCODONE HCL 5 MG TABLET PO PRN (20:02)
[2018-05-24] MEDS: GABAPENTIN 300 MG CAPSULE (FP) PO SCH (22:05)
[2018-05-24] MEDS: MONTELUKAST NA 10 MG TABLET PO SCH (22:08)
[2018-05-25] MEDS: guaiFENesin/D-METHORPHAN HB 10 ML UNIT-DOSE CUPS PO PRN ×2 (02:22→19:52)
[2018-05-25 07:38] LABS: ALK PHOS 103 U/L (45-117); ANION GAP 5 MMOL/L (8-16); BILIRUBIN,TOTAL 0.5 mg/dL (0.2-1); BLOOD UREA NITROGEN 16 mg/dL (7-18); CALCIUM 9.2 mg/dL (8.5-10.1); CHLORIDE 101 mmol/L (98-107); CO2 32 mmol/L (21-32); GLUCOSE,RANDOM 184 mg/dL (74-106); POTASSIUM 4.6 mmol/L (3.5-5.1); SGOT/AST 26 U/L (15-37); SGPT/ALT 15 U/L (13-61); SODIUM 137 mmol/L (136-145); TOT PROT 8.2 g/dl (6.4-8.2)
[2018-05-25 07:44] LABS: BASO % 0.5 % (0-2.0); EOS % 0.5 % (0-4.5); HEMOGLOBIN 10.9 GM/dL (10.7-15.3); LYMPH % 35.7 % (8-40); MCH 28.2 pg (25.7-33.7); MEAN CELL VOLUME 82.9 fl (80-96); MEAN PLT VOLUME 8.3 fl (7.5-11.1); MONO % 3.9 % (3.8-10.2); NEUT % 59.4 % (42.8-82.8); PLATELET COUNT 330 K/MM3 (134-434); RBC 3.86 M/mm3 (3.60-5.2); RDW 17.9 % (11.6-15.6); WHITE BLOOD COUNT 20.5 K/mm3 (4.0-10.0)
[2018-05-25] MEDS: ALBUTEROL SO4 2.5/IPRATROPIUM 0.5 INH SOL 3 ML VIAL.NEB. NEB SCH ×4 (07:45→20:15)
[2018-05-25] MEDS ORDERED: cefTRIAXone SODIUM 1 GM VIAL ONE (09:23)
[2018-05-25] MEDS ORDERED: DEXTROSE 5%-WATER - 50 ML IVPB ONE (09:23)
[2018-05-25] MEDS: APIXABAN 5 MG TABLET PO SCH ×2 (10:10→21:14)
[2018-05-25] MEDS: FOLIC ACID 1 MG TABLET (FP) PO SCH (10:10)
[2018-05-25] MEDS: DULoxetine HCL 30 MG CAPSULE.DR (FP) PO SCH ×2 (10:10→21:15)
[2018-05-25] MEDS: LOSARTAN POTASSIUM 50 MG TABLET (FP) PO SCH (10:10)
[2018-05-25] MEDS: DOCUSATE SODIUM 100 MG CAPSULE (FP) PO SCH ×2 (10:10→21:14)
[2018-05-25] MEDS: oxyCODONE HCL 40 MG SUSTAINED ACTING TABLET PO SCH ×2 (10:10→21:15)
[2018-05-25] MEDS: CEFTRIAXONE 1 GM in DEXTROSE 5%-WATER - 50 ML IVPB SCH (10:11)
[2018-05-25] MEDS: BUDESONIDE/FORMETEROL FUMARATE 160/4.5 mcg INHALER IH SCH ×2 (10:13→21:16)
[2018-05-25] MEDS: methylPREDNISolone NA SUCC 40 MG/1 ML VIAL IVPUSH SCH ×2 (10:14→21:16)
--- NOTE | 2018-05-25 12:11 | PN ---
Progress Note (short form) - Note Progress Note: Intermittent pleuritic type discomfort/pain with coughing. Reports that she does not have pain when she is coughing. Less congested cough and CHRISTIANSON. No hemoptysis. No CP. Intake & Output 05/22/18 05/23/18 05/24/18 05/25/18 23:59 23:59 23:59 23:59 Intake Total 2690 1465 1080 Balance 2690 1465 1080 Last Vital Signs Temp Pulse Resp BP Pulse Ox 97.8 F 89 20 123/61 96 05/25/18 06:00 05/25/18 06:00 05/25/18 06:00 05/25/18 06:00 05/24/18 21:00 Active Medications Acetaminophen (Tylenol -) 650 mg PO Q4H PRN PRN Reason: PAIN OR FEVER Albuterol Sulfate (Ventolin 0.083% Nebulizer Soln -) 1 amp NEB Q4H PRN PRN Reason: SHORT OF BREATH/WHEEZING Albuterol/Ipratropium (Duoneb -) 1 amp NEB RQID [facility] Last Admin: 05/25/18 11:30 Dose: 1 amp Apixaban (Eliquis -) 5 mg PO BID [facility] Last Admin: 05/25/18 10:10 Dose: 5 mg Benzocaine/Menthol (Cepacol Lozenge -) 1 each MM PRN PRN PRN Reason: SORE THROAT Budesonide/Formoterol Fumarate (Symbicort 160/4.5mcg -) 1 puff IH BID [facility] Last Admin: 05/25/18 10:13 Dose: 1 puff Docusate Sodium (Colace -) 100 mg PO BID [facility] Last Admin: 05/25/18 10:10 Dose: 100 mg Duloxetine HCl (Cymbalta -) 30 mg PO BID [facility] Last Admin: 05/25/18 10:10 Dose: 30 mg Folic Acid (Folic Acid -) 1 mg PO DAILY [facility] Last Admin: 05/25/18 10:10 Dose: 1 mg Gabapentin (Neurontin -) 300 mg PO HS [facility] Last Admin: 05/24/18 22:05 Dose: 300 mg Guaifenesin (Robitussin Dm -) 10 ml PO Q4H PRN PRN Reason: COUGH Last Admin: 05/25/18 02:22 Dose: 10 ml Ceftriaxone Sodium 1 gm/ (Dextrose) 50 mls @ 100 mls/hr IVPB DAILY [facility]; Protocol Last Admin: 05/25/18 10:11 Dose: 100 mls/hr Azithromycin (Zithromax 500mg Ivpb (Pre-Docked)) 500 mg in 250 mls @ 250 mls/ hr IVPB DAILY [facility] Last Admin: 05/25/18 11:10 Dose: 250 mls/hr Losartan Potassium (Cozaar -) 50 mg PO DAILY [facility] Last Admin: 05/25/18 10:10 Dose: 50 mg Methylprednisolone Sodium Succinate (Solu-Medrol -) 40 mg IVPUSH BID [facility] Last Admin: 05/25/18 10:14 Dose: 40 mg Montelukast Sodium (Singulair -) 10 mg PO HS [facility] Last Admin: 05/24/18 22:08 Dose: 10 mg Oxycodone HCl (Oxycontin -) 40 mg PO BID [facility] Last Admin: 05/25/18 10:10 Dose: 40 mg Oxycodone HCl (Roxicodone -) 30 mg PO Q6H PRN PRN Reason: PAIN LEVEL 7 - 10 Last Admin: 05/24/18 20:02 Dose: 30 mg Constitutional: Yes: Awake and alert, NAD, less congested cough Eyes: Yes: Conjunctiva Clear, EOM Intact HENT: Yes: Atraumatic, Normocephalic Neck: Yes: Supple, Trachea Midline Cardiovascular: Yes: Regular Rate and Rhythm Respiratory: Yes: Bilateral coarse Rhonchi, no expiratory wheezes ...Clubbing: No Gastrointestinal: Yes: Normal Bowel Sounds, Soft. No: Tenderness Edema: No Neurological: Yes: Alert, Oriented Labs: Laboratory Results - last 24 hr 05/25/18 05/25/18 06:25 06:25 WBC 20.5 H RBC 3.86 Hgb 10.9 Hct 32.0 L MCV 82.9 MCH 28.2 MCHC 34.0 RDW 17.9 H Plt Count 330 MPV 8.3 Absolute Neuts (auto) 12.2 H Neutrophils % 59.4 Lymphocytes % 35.7 D Monocytes % 3.9 Eosinophils % 0.5 D Basophils % 0.5 Nucleated RBC % 2 H Sodium 137 Potassium 4.6 Chloride 101 Carbon Dioxide 32 Anion Gap 5 L BUN 16 Creatinine 1.0 Creat Clearance w eGFR 54.20 Random Glucose 184 H Calcium 9.2 Total Bilirubin 0.5 AST 26 ALT 15 Alkaline Phosphatase 103 Total Protein 8.2 Albumin 3.0 L Problem List - Problems (1) COPD exacerbation Code(s): J44.1 - CHRONIC OBSTRUCTIVE PULMONARY DISEASE W (ACUTE) EXACERBATION (2) GUCCI (acute kidney injury) Code(s): N17.9 - ACUTE KIDNEY FAILURE, UNSPECIFIED (3) HTN (hypertension) Code(s): I10 - ESSENTIAL (PRIMARY) HYPERTENSION Qualifiers: Hypertension type: essential hypertension Qualified Code(s): I10 - Essential (primary) hypertension Assessment/Plan Acute COPD Exacerbation Acute Bronchitis Acute Kidney Injury h/o PE HTN Do not suspect Acute Chest Syndrome as she is not in a [facility]. She has no hypoxemia and is asymptomatic when not coughing. - IV medrol - inhaled bronchodilators standing and PRN - cough suppressants - O2 to keep SpO2 >90% - continue anticoagulation - outpt PFTs - DVT prophylaxis - ABX per ID Dr Almaguer
--- NOTE | 2018-05-25 12:27 | PN ---
Progress Note, Physician Chief Complaint: patient seen and examined says she feels slightly better - Current Medication List Current Medications: Active Medications Acetaminophen (Tylenol -) 650 mg PO Q4H PRN PRN Reason: PAIN OR FEVER Albuterol Sulfate (Ventolin 0.083% Nebulizer Soln -) 1 amp NEB Q4H PRN PRN Reason: SHORT OF BREATH/WHEEZING Albuterol/Ipratropium (Duoneb -) 1 amp NEB RQID [facility] Last Admin: 05/25/18 11:30 Dose: 1 amp Apixaban (Eliquis -) 5 mg PO BID [facility] Last Admin: 05/25/18 10:10 Dose: 5 mg Benzocaine/Menthol (Cepacol Lozenge -) 1 each MM PRN PRN PRN Reason: SORE THROAT Budesonide/Formoterol Fumarate (Symbicort 160/4.5mcg -) 1 puff IH BID [facility] Last Admin: 05/25/18 10:13 Dose: 1 puff Docusate Sodium (Colace -) 100 mg PO BID [facility] Last Admin: 05/25/18 10:10 Dose: 100 mg Duloxetine HCl (Cymbalta -) 30 mg PO BID [facility] Last Admin: 05/25/18 10:10 Dose: 30 mg Folic Acid (Folic Acid -) 1 mg PO DAILY [facility] Last Admin: 05/25/18 10:10 Dose: 1 mg Gabapentin (Neurontin -) 300 mg PO HS [facility] Last Admin: 05/24/18 22:05 Dose: 300 mg Guaifenesin (Robitussin Dm -) 10 ml PO Q4H PRN PRN Reason: COUGH Last Admin: 05/25/18 02:22 Dose: 10 ml Ceftriaxone Sodium 1 gm/ (Dextrose) 50 mls @ 100 mls/hr IVPB DAILY [facility]; Protocol Last Admin: 05/25/18 10:11 Dose: 100 mls/hr Azithromycin (Zithromax 500mg Ivpb (Pre-Docked)) 500 mg in 250 mls @ 250 mls/ hr IVPB DAILY [facility] Last Admin: 05/25/18 11:10 Dose: 250 mls/hr Losartan Potassium (Cozaar -) 50 mg PO DAILY [facility] Last Admin: 05/25/18 10:10 Dose: 50 mg Methylprednisolone Sodium Succinate (Solu-Medrol -) 40 mg IVPUSH BID [facility] Last Admin: 05/25/18 10:14 Dose: 40 mg Montelukast Sodium (Singulair -) 10 mg PO HS [facility] Last Admin: 05/24/18 22:08 Dose: 10 mg Oxycodone HCl (Oxycontin -) 40 mg PO BID [facility] Last Admin: 05/25/18 10:10 Dose: 40 mg Oxycodone HCl (Roxicodone -) 30 mg PO Q6H PRN PRN Reason: PAIN LEVEL 7 - 10 Last Admin: 05/24/18 20:02 Dose: 30 mg - Objective Vital Signs: Vital Signs Temperature 97.8 F 05/25/18 06:00 Pulse Rate 89 05/25/18 06:00 Respiratory Rate 20 05/25/18 06:00 Blood Pressure 123/61 05/25/18 06:00 O2 Sat by Pulse Oximetry (%) 96 05/24/18 21:00 Constitutional: Yes: Calm Cardiovascular: Yes: Regular Rate and Rhythm, S1, S2 Respiratory: Yes: Rhonchi Gastrointestinal: Yes: Normal Bowel Sounds, Soft Edema: No Neurological: Yes: Alert, Oriented Labs: CBC, BMP 05/25/18 06:25 05/25/18 06:25 INR, PTT INR 1.64 (0.83-1.09) H 05/20/18 16:46 Problem List - Problems (1) GUCCI (acute kidney injury) Assessment/Plan: bun/cr much better 20/1.4 to 16/1.0 Code(s): N17.9 - ACUTE KIDNEY FAILURE, UNSPECIFIED (2) COPD exacerbation Assessment/Plan: iv medrol bid change to po prednsione in AM nasal canula bronchodilators Code(s): J44.1 - CHRONIC OBSTRUCTIVE PULMONARY DISEASE W (ACUTE) EXACERBATION (3) Leukocytosis Assessment/Plan: on rocephin and azithromax Code(s): D72.829 - ELEVATED WHITE BLOOD CELL COUNT, UNSPECIFIED (4) HTN (hypertension) Assessment/Plan: losartan Code(s): I10 - ESSENTIAL (PRIMARY) HYPERTENSION Qualifiers: Hypertension type: essential hypertension Qualified Code(s): I10 - Essential (primary) hypertension (5) Pulmonary embolism Assessment/Plan: eliquis Code(s): I26.99 - OTHER PULMONARY EMBOLISM WITHOUT ACUTE COR PULMONALE (6) Sickle cell anemia Assessment/Plan: folic acid nasal canula pain control with oxycodone Code(s): D57.1 - SICKLE-CELL DISEASE WITHOUT CRISIS Qualifiers: Sickle-cell associated disorders: without crisis Qualified Code(s): D57.1 - Sickle-cell disease without crisis
[2018-05-25 12:48] LABS: ANISOCYTOSIS 0; MACROCYTOSIS 0; PLATELET ESTIMATE NORMAL; TARGET CELLS 2+
[2018-05-25] MEDS: oxyCODONE HCL 5 MG TABLET PO PRN (14:19)
--- NOTE | 2018-05-25 17:48 | PN ---
Progress Note, Physician History of Present Illness: REPORTS LESS COUGH/ CHEST PAIN NO C/O DYSPNEA NO F/C APPEARS MORE COMFORTABLE TODAY - Current Medication List Current Medications: Active Medications Acetaminophen (Tylenol -) 650 mg PO Q4H PRN PRN Reason: PAIN OR FEVER Albuterol Sulfate (Ventolin 0.083% Nebulizer Soln -) 1 amp NEB Q4H PRN PRN Reason: SHORT OF BREATH/WHEEZING Albuterol/Ipratropium (Duoneb -) 1 amp NEB RQID [facility] Last Admin: 05/25/18 11:30 Dose: 1 amp Apixaban (Eliquis -) 5 mg PO BID [facility] Last Admin: 05/25/18 10:10 Dose: 5 mg Benzocaine/Menthol (Cepacol Lozenge -) 1 each MM PRN PRN PRN Reason: SORE THROAT Budesonide/Formoterol Fumarate (Symbicort 160/4.5mcg -) 1 puff IH BID [facility] Last Admin: 05/25/18 10:13 Dose: 1 puff Docusate Sodium (Colace -) 100 mg PO BID [facility] Last Admin: 05/25/18 10:10 Dose: 100 mg Duloxetine HCl (Cymbalta -) 30 mg PO BID [facility] Last Admin: 05/25/18 10:10 Dose: 30 mg Folic Acid (Folic Acid -) 1 mg PO DAILY [facility] Last Admin: 05/25/18 10:10 Dose: 1 mg Gabapentin (Neurontin -) 300 mg PO HS [facility] Last Admin: 05/24/18 22:05 Dose: 300 mg Guaifenesin (Robitussin Dm -) 10 ml PO Q4H PRN PRN Reason: COUGH Last Admin: 05/25/18 02:22 Dose: 10 ml Ceftriaxone Sodium 1 gm/ (Dextrose) 50 mls @ 100 mls/hr IVPB DAILY [facility]; Protocol Last Admin: 05/25/18 10:11 Dose: 100 mls/hr Azithromycin (Zithromax 500mg Ivpb (Pre-Docked)) 500 mg in 250 mls @ 250 mls/ hr IVPB DAILY [facility] Last Admin: 05/25/18 11:10 Dose: 250 mls/hr Losartan Potassium (Cozaar -) 50 mg PO DAILY [facility] Last Admin: 05/25/18 10:10 Dose: 50 mg Methylprednisolone Sodium Succinate (Solu-Medrol -) 40 mg IVPUSH BID [facility] Last Admin: 05/25/18 10:14 Dose: 40 mg Montelukast Sodium (Singulair -) 10 mg PO [facility] Last Admin: 05/24/18 22:08 Dose: 10 mg Oxycodone HCl (Oxycontin -) 40 mg PO BID [facility] Last Admin: 05/25/18 10:10 Dose: 40 mg Oxycodone HCl (Roxicodone -) 30 mg PO Q6H PRN PRN Reason: PAIN LEVEL 7 - 10 Last Admin: 05/25/18 14:19 Dose: 30 mg - Objective Vital Signs: Vital Signs Temperature 98.4 F 05/25/18 14:28 Pulse Rate 85 05/25/18 14:28 Respiratory Rate 20 05/25/18 14:28 Blood Pressure 138/85 05/25/18 14:28 O2 Sat by Pulse Oximetry (%) 96 05/25/18 09:00 Constitutional: Yes: No Distress Cardiovascular: Yes: Regular Rate and Rhythm, S1, S2 Respiratory: Yes: Other (DECREASED RHONCHI BILATERALLY) Gastrointestinal: Yes: Normal Bowel Sounds, Soft. No: Tenderness Edema: No Labs: CBC, BMP 05/25/18 06:25 05/25/18 06:25 INR, PTT INR 1.64 (0.83-1.09) H 05/20/18 16:46 Assessment/Plan BRONCHITIS COPD EXACERBATION LEUKOCYTOSIS LIKELY STEROID-INDUCED SICKLE CELL SUBSTITUTE PO CEFTIN 500MG PO BID X 7D
[2018-05-25] MEDS: MONTELUKAST NA 10 MG TABLET PO SCH (21:15)
[2018-05-25] MEDS: GABAPENTIN 300 MG CAPSULE (FP) PO SCH (21:15)
[2018-05-25] MEDS: CEFUROXIME AXETIL 500 MG TABLET PO SCH (21:16)
[2018-05-26] MEDS: oxyCODONE HCL 5 MG TABLET PO PRN (03:47)
[2018-05-26] MEDS: ALBUTEROL SO4 2.5/IPRATROPIUM 0.5 INH SOL 3 ML VIAL.NEB. NEB SCH ×4 (08:10→20:40)
[2018-05-26] MEDS: oxyCODONE HCL 40 MG SUSTAINED ACTING TABLET PO SCH ×2 (09:58→21:44)
[2018-05-26] MEDS: FOLIC ACID 1 MG TABLET (FP) PO SCH (09:59)
[2018-05-26] MEDS: DOCUSATE SODIUM 100 MG CAPSULE (FP) PO SCH ×2 (09:59→21:45)
[2018-05-26] MEDS: APIXABAN 5 MG TABLET PO SCH ×2 (09:59→21:45)
[2018-05-26] MEDS: LOSARTAN POTASSIUM 50 MG TABLET (FP) PO SCH (09:59)
[2018-05-26] MEDS: DULoxetine HCL 30 MG CAPSULE.DR (FP) PO SCH ×2 (09:59→21:45)
[2018-05-26] MEDS: methylPREDNISolone NA SUCC 40 MG/1 ML VIAL IVPUSH SCH (10:00)
[2018-05-26] MEDS: CEFUROXIME AXETIL 500 MG TABLET PO SCH ×2 (10:00→21:48)
[2018-05-26] MEDS: BUDESONIDE/FORMETEROL FUMARATE 160/4.5 mcg INHALER IH SCH ×2 (10:01→21:48)
--- NOTE | 2018-05-26 13:29 | DS ---
Physical Examination Vital Signs: Vital Signs Temperature 98.0 F 05/26/18 06:00 Pulse Rate 98 H 05/26/18 10:00 Respiratory Rate 18 05/26/18 10:00 Blood Pressure 123/69 05/26/18 10:00 O2 Sat by Pulse Oximetry (%) 96 05/26/18 09:00 Constitutional: Yes: Calm Cardiovascular: Yes: Regular Rate and Rhythm, S1, S2 Respiratory: Yes: CTA Bilaterally Gastrointestinal: Yes: Normal Bowel Sounds, Soft Neurological: Yes: Alert, Oriented Labs: CBC, BMP 05/25/18 06:25 05/25/18 06:25 Discharge Summary Reason For Visit: ACUTE KIDNEY INJURY/OBSTRUCTIVE CHRONIC Current Active Problems GUCCI (acute kidney injury) (Acute) COPD exacerbation (Acute) Hospital Course: CP: Javed Wilkinson S - Admission Chief Complaint: Productive Cough History of Present Illness: This is a 73 y/o woman with a PMHx of COPD, Asthma, pE (on Eliquis), HTN, Sickle Cell Disease, Chronic Back Pain, Substance Abuse (prescription). Who presents to the ED with a productive cough with green phlegm, SOB x 3 days. Patient denies fever, chills, dizziness, CP, palpitations, AP, N/V/D, constipation, dysuria. admitted for GUCCI and copd exacerbation iv medrol to po prednsione taper iv abx for possible trachebronchitis ? pna iv abx now change to po ceftin bid for 7 days ivf improved bun/cr Condition: Stable - Instructions Disposition: HOME - Home Medications Comprehensive Discharge Medication List: Ambulatory Orders Folic Acid - 1 mg PO DAILY 02/11/13 Docusate Sodium [Colace -] 100 mg PO DAILY 04/06/15 Montelukast Na [Singulair -] 10 mg PO HS 04/06/15 Budesonide/Formeterol Fumarate [SYMBICORT 160/4.5mcg -] 1 inh PO BID 08/19/15 Cholecalciferol (Vitamin D3) [Vitamin D3 -] 1,000 unit PO DAILY 08/19/15 Ipratropium/Albuterol Sulfate [Combivent Respimat 20-100 Mcg] 1 inh IH Q4H PRN 08/19/15 Acetaminophen [Tylenol .Extra-Strength -] 1,000 mg PO Q8H PRN #0 tablet Chlorhexidine Gluconate 480 ml MM HS #1 mouthwash 11/25/15 Albuterol Sulfate [Proair Hfa] 2 inh IH QID PRN 01/21/18 Duloxetine HCl 30 mg PO HS 01/21/18 Gabapentin 300 mg PO HS 01/21/18 Losartan Potassium [Cozaar -] 50 mg PO DAILY 01/21/18 Apixaban [Eliquis -] 5 mg PO BID #30 tablet MDD 2 01/26/18 Cefuroxime Axetil [Ceftin -] 500 mg PO BID #10 tablet MDD 2 01/26/18 oxyCODONE HCL [Roxybond] 30 mg PO QID PRN 05/21/18 oxyCODONE SR [Oxycontin] 40 mg PO BID 05/21/18
--- NOTE | 2018-05-26 16:32 | PN ---
Progress Note (short form) - Note Progress Note: PULMONARY Intermittent pleuritic type discomfort/pain with coughing. Less congested cough and CHRISTIANSON. No hemoptysis. No CP. VSS Constitutional: Yes: Awake and alert, NAD, less congested cough Eyes: Yes: Conjunctiva Clear, EOM Intact HENT: Yes: Atraumatic, Normocephalic Neck: Yes: Supple, Trachea Midline Cardiovascular: Yes: Regular Rate and Rhythm Respiratory: Yes: Bilateral coarse Rhonchi, no expiratory wheezes ...Clubbing: No Gastrointestinal: Yes: Normal Bowel Sounds, Soft. No: Tenderness Edema: No Neurological: Yes: Alert, Oriented Labs/notes/images/meds reviewed - Problems (1) COPD exacerbation Code(s): J44.1 - CHRONIC OBSTRUCTIVE PULMONARY DISEASE W (ACUTE) EXACERBATION (2) GUCCI (acute kidney injury) Code(s): N17.9 - ACUTE KIDNEY FAILURE, UNSPECIFIED (3) HTN (hypertension) Code(s): I10 - ESSENTIAL (PRIMARY) HYPERTENSION Qualifiers: Hypertension type: essential hypertension Qualified Code(s): I10 - Essential (primary) hypertension Acute COPD Exacerbation Acute Bronchitis Acute Kidney Injury h/o PE HTN - IV medrol - inhaled bronchodilators standing and PRN - cough suppressants - O2 to keep SpO2 >90% - continue anticoagulation - outpt PFTs - DVT prophylaxis - ABX per primary - hope for d/c AM Yobany POLANCO MD
[2018-05-26] MEDS: MONTELUKAST NA 10 MG TABLET PO SCH (21:43)
[2018-05-26] MEDS: GABAPENTIN 300 MG CAPSULE (FP) PO SCH (21:44)
[2018-05-26] MEDS: guaiFENesin/D-METHORPHAN HB 10 ML UNIT-DOSE CUPS PO PRN (21:46)
[2018-05-27] MEDS: ALBUTEROL SO4 2.5/IPRATROPIUM 0.5 INH SOL 3 ML VIAL.NEB. NEB SCH ×4 (08:07→20:32)
[2018-05-27] MEDS: CEFUROXIME AXETIL 500 MG TABLET PO SCH ×2 (10:00→22:30)
[2018-05-27] MEDS ORDERED: predniSONE 20 MG TABLET (UD) PO SCH (10:00)
[2018-05-27] MEDS: LOSARTAN POTASSIUM 50 MG TABLET (FP) PO SCH (10:01)
[2018-05-27] MEDS: FOLIC ACID 1 MG TABLET (FP) PO SCH (10:01)
[2018-05-27] MEDS: DOCUSATE SODIUM 100 MG CAPSULE (FP) PO SCH ×2 (10:01→22:08)
[2018-05-27] MEDS: APIXABAN 5 MG TABLET PO SCH ×2 (10:01→22:06)
[2018-05-27] MEDS: DULoxetine HCL 30 MG CAPSULE.DR (FP) PO SCH ×2 (10:01→22:08)
[2018-05-27] MEDS: oxyCODONE HCL 40 MG SUSTAINED ACTING TABLET PO SCH (10:01)
[2018-05-27] MEDS: BUDESONIDE/FORMETEROL FUMARATE 160/4.5 mcg INHALER IH SCH ×2 (10:02→22:07)
--- NOTE | 2018-05-27 13:06 | PN ---
Progress Note (short form) - Note Progress Note: PULMONARY Cough/wheeze worse today VSS Constitutional: Yes: Awake and alert, NAD, less congested cough Eyes: Yes: Conjunctiva Clear, EOM Intact HENT: Yes: Atraumatic, Normocephalic Neck: Yes: Supple, Trachea Midline Cardiovascular: Yes: Regular Rate and Rhythm Respiratory: Yes: Bilateral coarse Rhonchi, no expiratory wheezes ...Clubbing: No Gastrointestinal: Yes: Normal Bowel Sounds, Soft. No: Tenderness Edema: No Neurological: Yes: Alert, Oriented Labs/notes/images/meds reviewed - Problems (1) COPD exacerbation Code(s): J44.1 - CHRONIC OBSTRUCTIVE PULMONARY DISEASE W (ACUTE) EXACERBATION (2) GUCCI (acute kidney injury) Code(s): N17.9 - ACUTE KIDNEY FAILURE, UNSPECIFIED (3) HTN (hypertension) Code(s): I10 - ESSENTIAL (PRIMARY) HYPERTENSION Qualifiers: Hypertension type: essential hypertension Qualified Code(s): I10 - Essential (primary) hypertension Acute COPD Exacerbation Acute Bronchitis Acute Kidney Injury h/o PE HTN - IV medrol - inhaled bronchodilators standing and PRN - cough suppressants - O2 to keep SpO2 >90% - continue anticoagulation - outpt PFTs - DVT prophylaxis - ABX per primary R COLLIN DAO
[2018-05-27] MEDS: guaiFENesin/D-METHORPHAN HB 10 ML UNIT-DOSE CUPS PO PRN ×2 (13:19→22:05)
[2018-05-27] MEDS: oxyCODONE HCL 5 MG TABLET PO PRN (13:19)
--- NOTE | 2018-05-27 14:53 | PN ---
Progress Note (short form) - Note Progress Note: PATIENT'S DISCHARGE CANCELLED BECAUSE OF WORSENING RHONCHI PULMONARY RESTARTED IV SOLUMEDROL MONITOR RESP STATUS
[2018-05-27] MEDS: methylPREDNISolone NA SUCC 40 MG/1 ML VIAL IVPUSH SCH ×2 (15:55→22:09)
[2018-05-27] MEDS: NYSTATIN 500,000 UNITS/5 ML SUSPENSION PO SCH (17:40)
[2018-05-27] MEDS ORDERED: oxyCODONE HCL 40 MG SUSTAINED ACTING TABLET PO SCH (18:33)
[2018-05-27] MEDS: GABAPENTIN 300 MG CAPSULE (FP) PO SCH (22:06)
[2018-05-27] MEDS: MONTELUKAST NA 10 MG TABLET PO SCH (22:07)
[2018-05-28] MEDS: NYSTATIN 500,000 UNITS/5 ML SUSPENSION PO SCH ×4 (00:05→17:09)
[2018-05-28] MEDS: methylPREDNISolone NA SUCC 40 MG/1 ML VIAL IVPUSH SCH ×4 (02:36→21:32)
[2018-05-28] MEDS: ALBUTEROL SO4 2.5/IPRATROPIUM 0.5 INH SOL 3 ML VIAL.NEB. NEB SCH ×4 (08:08→20:06)
[2018-05-28] MEDS: LOSARTAN POTASSIUM 50 MG TABLET (FP) PO SCH (10:39)
[2018-05-28] MEDS: APIXABAN 5 MG TABLET PO SCH ×2 (10:39→21:32)
[2018-05-28] MEDS: DULoxetine HCL 30 MG CAPSULE.DR (FP) PO SCH ×2 (10:39→21:33)
[2018-05-28] MEDS: guaiFENesin/D-METHORPHAN HB 10 ML UNIT-DOSE CUPS PO PRN ×2 (10:40→21:33)
[2018-05-28] MEDS: DOCUSATE SODIUM 100 MG CAPSULE (FP) PO SCH ×2 (10:40→21:33)
[2018-05-28] MEDS: CEFUROXIME AXETIL 500 MG TABLET PO SCH ×2 (10:40→21:33)
[2018-05-28] MEDS: FOLIC ACID 1 MG TABLET (FP) PO SCH (10:40)
[2018-05-28] MEDS: BUDESONIDE/FORMETEROL FUMARATE 160/4.5 mcg INHALER IH SCH ×2 (10:41→21:32)
--- NOTE | 2018-05-28 11:02 | PN ---
Progress Note, Physician Chief Complaint: AWAKE ALERT STILL COUGHING - Current Medication List Current Medications: Active Medications Acetaminophen (Tylenol -) 650 mg PO Q4H PRN PRN Reason: PAIN OR FEVER Albuterol Sulfate (Ventolin 0.083% Nebulizer Soln -) 1 amp NEB Q4H PRN PRN Reason: SHORT OF BREATH/WHEEZING Albuterol/Ipratropium (Duoneb -) 1 amp NEB RQID [facility] Last Admin: 05/28/18 08:08 Dose: 1 amp Apixaban (Eliquis -) 5 mg PO BID [facility] Last Admin: 05/28/18 10:39 Dose: 5 mg Benzocaine/Menthol (Cepacol Lozenge -) 1 each MM PRN PRN PRN Reason: SORE THROAT Budesonide/Formoterol Fumarate (Symbicort 160/4.5mcg -) 1 puff IH BID [facility] Last Admin: 05/28/18 10:41 Dose: 1 puff Cefuroxime Axetil (Ceftin -) 500 mg PO BID [facility] Last Admin: 05/28/18 10:40 Dose: 500 mg Docusate Sodium (Colace -) 100 mg PO BID [facility] Last Admin: 05/28/18 10:40 Dose: 100 mg Duloxetine HCl (Cymbalta -) 30 mg PO BID [facility] Last Admin: 05/28/18 10:39 Dose: 30 mg Folic Acid (Folic Acid -) 1 mg PO DAILY [facility] Last Admin: 05/28/18 10:40 Dose: 1 mg Gabapentin (Neurontin -) 300 mg PO HS [facility] Last Admin: 05/27/18 22:06 Dose: 300 mg Guaifenesin (Robitussin Dm -) 10 ml PO Q4H PRN PRN Reason: COUGH Last Admin: 05/28/18 10:40 Dose: 10 ml Losartan Potassium (Cozaar -) 50 mg PO DAILY [facility] Last Admin: 05/28/18 10:39 Dose: 50 mg Methylprednisolone Sodium Succinate (Solu-Medrol -) 40 mg IVPUSH Q6H-IV [facility] Last Admin: 05/28/18 09:40 Dose: 40 mg Montelukast Sodium (Singulair -) 10 mg PO HS [facility] Last Admin: 05/27/18 22:07 Dose: 10 mg Nystatin (Nystatin Oral Suspension -) 500,000 units PO Q6HPO [facility] Last Admin: 05/28/18 05:26 Dose: 500,000 units Oxycodone HCl (Oxycontin -) 40 mg PO BID [facility] - Objective Vital Signs: Vital Signs Temperature 98.1 F 05/28/18 06:14 Pulse Rate 62 05/28/18 06:14 Respiratory Rate 18 05/28/18 06:14 Blood Pressure 120/64 05/28/18 06:14 O2 Sat by Pulse Oximetry (%) 95 05/27/18 20:44 Constitutional: Yes: Mild Distress Eyes: Yes: WNL HENT: Yes: WNL Neck: Yes: WNL Cardiovascular: Yes: Regular Rate and Rhythm Respiratory: Yes: On Nasal O2, Rhonchi Gastrointestinal: Yes: WNL Genitourinary: Yes: WNL Musculoskeletal: Yes: WNL Extremities: Yes: WNL Edema: No Peripheral Pulses WNL: Yes Integumentary: Yes: WNL Wound/Incision: Yes: Clean/Dry Neurological: Yes: WNL ...Motor Strength: WNL Psychiatric: Yes: WNL Labs: CBC, BMP 05/25/18 06:25 05/25/18 06:25 INR, PTT INR 1.64 (0.83-1.09) H 05/20/18 16:46 Problem List - Problems (1) GUCCI (acute kidney injury) Code(s): N17.9 - ACUTE KIDNEY FAILURE, UNSPECIFIED (2) COPD exacerbation Code(s): J44.1 - CHRONIC OBSTRUCTIVE PULMONARY DISEASE W (ACUTE) EXACERBATION (3) Asthma Code(s): J45.909 - UNSPECIFIED ASTHMA, UNCOMPLICATED (4) COPD (chronic obstructive pulmonary disease) with chronic bronchitis Code(s): J44.9 - CHRONIC OBSTRUCTIVE PULMONARY DISEASE, UNSPECIFIED Assessment/Plan RESTART IV SOLUMEDROL NEBS/02 SUPPORT OOB TO CHAIR DVT PROPHYLAXIS ROBITUSSIN PRN
[2018-05-28] MEDS: oxyCODONE HCL 40 MG SUSTAINED ACTING TABLET PO SCH ×2 (11:26→21:32)
[2018-05-28] MEDS ORDERED: oxyCODONE HCL 5 MG TABLET PO PRN (18:29)
[2018-05-28] MEDS: GABAPENTIN 300 MG CAPSULE (FP) PO SCH (21:32)
[2018-05-28] MEDS: MONTELUKAST NA 10 MG TABLET PO SCH (21:33)
[2018-05-29] MEDS: NYSTATIN 500,000 UNITS/5 ML SUSPENSION PO SCH ×5 (01:06→23:32)
[2018-05-29] MEDS: methylPREDNISolone NA SUCC 40 MG/1 ML VIAL IVPUSH SCH ×4 (03:22→21:53)
[2018-05-29] MEDS: guaiFENesin/D-METHORPHAN HB 10 ML UNIT-DOSE CUPS PO PRN ×3 (05:42→22:02)
[2018-05-29 07:04] LABS: HEMATOCRIT 31.8 % (32.4-45.2); HEMOGLOBIN 10.7 GM/dL (10.7-15.3); MCH 28.4 pg (25.7-33.7); MCHC 33.6 g/dl (32.0-36.0); MEAN CELL VOLUME 84.6 fl (80-96); MEAN PLT VOLUME 8.3 fl (7.5-11.1); PLATELET COUNT 338 K/MM3 (134-434); RBC 3.76 M/mm3 (3.60-5.2); RDW 18.1 % (11.6-15.6); WHITE BLOOD COUNT 18.6 K/mm3 (4.0-10.0)
[2018-05-29 07:32] LABS: ANION GAP 5 MMOL/L (8-16); BLOOD UREA NITROGEN 19 mg/dL (7-18); CALCIUM 8.5 mg/dL (8.5-10.1); CHLORIDE 102 mmol/L (98-107); CO2 32 mmol/L (21-32); CREATININE 1.1 mg/dL (0.55-1.3); GLUCOSE,RANDOM 252 mg/dL (74-106); POTASSIUM 4.8 mmol/L (3.5-5.1); SODIUM 138 mmol/L (136-145)
[2018-05-29] MEDS: ALBUTEROL SO4 2.5/IPRATROPIUM 0.5 INH SOL 3 ML VIAL.NEB. NEB SCH ×4 (07:40→20:01)
[2018-05-29] MEDS: DULoxetine HCL 30 MG CAPSULE.DR (FP) PO SCH ×2 (09:49→21:54)
[2018-05-29] MEDS: APIXABAN 5 MG TABLET PO SCH ×2 (09:49→21:54)
[2018-05-29] MEDS: FOLIC ACID 1 MG TABLET (FP) PO SCH (09:49)
[2018-05-29] MEDS: oxyCODONE HCL 40 MG SUSTAINED ACTING TABLET PO SCH ×2 (09:49→21:54)
[2018-05-29] MEDS: LOSARTAN POTASSIUM 50 MG TABLET (FP) PO SCH (09:49)
[2018-05-29] MEDS: CEFUROXIME AXETIL 500 MG TABLET PO SCH ×2 (09:50→21:54)
[2018-05-29] MEDS: DOCUSATE SODIUM 100 MG CAPSULE (FP) PO SCH ×2 (09:50→21:55)
[2018-05-29] MEDS: BUDESONIDE/FORMETEROL FUMARATE 160/4.5 mcg INHALER IH SCH ×2 (09:52→21:55)
--- NOTE | 2018-05-29 11:53 | PN ---
Progress Note (short form) - Note Progress Note: PULMONARY Feels better today after increasing steroids. Less cough and wheezing. No fevers. Vital Signs Period Temp Pulse Resp BP Sys/Mendez Pulse Ox Last 24 Hr 97.7 F-98.5 F 88-103 18-18 128-143/67-78 98 Gen: NAD at rest Heart: RRR Lung: scattered rhonchi, wheezes Abd: soft, nontender Ext: no edema CBC, BMP 05/29/18 06:20 05/29/18 06:20 Active Medications Acetaminophen (Tylenol -) 650 mg PO Q4H PRN PRN Reason: PAIN OR FEVER Albuterol Sulfate (Ventolin 0.083% Nebulizer Soln -) 1 amp NEB Q4H PRN PRN Reason: SHORT OF BREATH/WHEEZING Albuterol/Ipratropium (Duoneb -) 1 amp NEB RQID [facility] Last Admin: 05/29/18 11:24 Dose: Not Given Apixaban (Eliquis -) 5 mg PO BID [facility] Last Admin: 05/29/18 09:49 Dose: 5 mg Benzocaine/Menthol (Cepacol Lozenge -) 1 each MM PRN PRN PRN Reason: SORE THROAT Budesonide/Formoterol Fumarate (Symbicort 160/4.5mcg -) 1 puff IH BID [facility] Last Admin: 05/29/18 09:52 Dose: 1 puff Cefuroxime Axetil (Ceftin -) 500 mg PO BID [facility] Last Admin: 05/29/18 09:50 Dose: 500 mg Docusate Sodium (Colace -) 100 mg PO BID [facility] Last Admin: 05/29/18 09:50 Dose: 100 mg Duloxetine HCl (Cymbalta -) 30 mg PO BID [facility] Last Admin: 05/29/18 09:49 Dose: 30 mg Folic Acid (Folic Acid -) 1 mg PO DAILY [facility] Last Admin: 05/29/18 09:49 Dose: 1 mg Gabapentin (Neurontin -) 300 mg PO HS [facility] Last Admin: 05/28/18 21:32 Dose: 300 mg Guaifenesin (Robitussin Dm -) 10 ml PO Q4H PRN PRN Reason: COUGH Last Admin: 05/29/18 09:55 Dose: 10 ml Losartan Potassium (Cozaar -) 50 mg PO DAILY [facility] Last Admin: 05/29/18 09:49 Dose: 50 mg Methylprednisolone Sodium Succinate (Solu-Medrol -) 40 mg IVPUSH Q6H-IV [facility] Last Admin: 05/29/18 09:50 Dose: 40 mg Montelukast Sodium (Singulair -) 10 mg PO HS [facility] Last Admin: 05/28/18 21:33 Dose: 10 mg Nystatin (Nystatin Oral Suspension -) 500,000 units PO Q6HPO [facility] Last Admin: 05/29/18 05:42 Dose: 500,000 units Oxycodone HCl (Oxycontin -) 40 mg PO BID [facility] Last Admin: 05/29/18 09:49 Dose: 40 mg Oxycodone HCl (Roxicodone -) 30 mg PO Q8H PRN PRN Reason: PAIN LEVEL 7 - 10 Last Admin: 05/28/18 18:57 Dose: 30 mg A/P Acute COPD Exacerbation Acute Bronchitis Acute Kidney Injury h/o PE HTN - continue medrol, can likely change steroids to PO prednisone in AM - inhaled bronchodilators standing and PRN - cough suppressants - O2 to keep SpO2 >90% - continue anticoagulation - outpt PFTs - DVT prophylaxis Problem List - Problems (1) COPD exacerbation Code(s): J44.1 - CHRONIC OBSTRUCTIVE PULMONARY DISEASE W (ACUTE) EXACERBATION (2) GUCCI (acute kidney injury) Code(s): N17.9 - ACUTE KIDNEY FAILURE, UNSPECIFIED (3) HTN (hypertension) Code(s): I10 - ESSENTIAL (PRIMARY) HYPERTENSION Qualifiers: Hypertension type: essential hypertension Qualified Code(s): I10 - Essential (primary) hypertension
[2018-05-29] MEDS: NITROGLYCERIN SUBLINGUAL 1/150 0.4 MG TAB SL PRN ×3 (13:11→13:44)
--- NOTE | 2018-05-29 14:08 | PN ---
Progress Note, Physician Chief Complaint: COPD Exacerbation Sickle Cell Anemia GUCCI History of Present Illness: Previous notes and events reviewed awake and alert NAD patient complain of R sided chest pain described as "pulling" that radiates to under R breast - Current Medication List Current Medications: Active Medications Acetaminophen (Tylenol -) 650 mg PO Q4H PRN PRN Reason: PAIN OR FEVER Albuterol Sulfate (Ventolin 0.083% Nebulizer Soln -) 1 amp NEB Q4H PRN PRN Reason: SHORT OF BREATH/WHEEZING Albuterol/Ipratropium (Duoneb -) 1 amp NEB RQID [facility] Last Admin: 05/29/18 11:24 Dose: Not Given Apixaban (Eliquis -) 5 mg PO BID [facility] Last Admin: 05/29/18 09:49 Dose: 5 mg Benzocaine/Menthol (Cepacol Lozenge -) 1 each MM PRN PRN PRN Reason: SORE THROAT Budesonide/Formoterol Fumarate (Symbicort 160/4.5mcg -) 1 puff IH BID [facility] Last Admin: 05/29/18 09:52 Dose: 1 puff Cefuroxime Axetil (Ceftin -) 500 mg PO BID [facility] Last Admin: 05/29/18 09:50 Dose: 500 mg Docusate Sodium (Colace -) 100 mg PO BID [facility] Last Admin: 05/29/18 09:50 Dose: 100 mg Duloxetine HCl (Cymbalta -) 30 mg PO BID [facility] Last Admin: 05/29/18 09:49 Dose: 30 mg Folic Acid (Folic Acid -) 1 mg PO DAILY [facility] Last Admin: 05/29/18 09:49 Dose: 1 mg Gabapentin (Neurontin -) 300 mg PO HS [facility] Last Admin: 05/28/18 21:32 Dose: 300 mg Guaifenesin (Robitussin Dm -) 10 ml PO Q4H PRN PRN Reason: COUGH Last Admin: 05/29/18 09:55 Dose: 10 ml Losartan Potassium (Cozaar -) 50 mg PO DAILY [facility] Last Admin: 05/29/18 09:49 Dose: 50 mg Methylprednisolone Sodium Succinate (Solu-Medrol -) 40 mg IVPUSH Q6H-IV [facility] Last Admin: 05/29/18 09:50 Dose: 40 mg Montelukast Sodium (Singulair -) 10 mg PO HS [facility] Last Admin: 05/28/18 21:33 Dose: 10 mg Nitroglycerin (Nitrostat -) 0.4 mg SL Q5M PRN PRN Reason: FOR CHEST PAIN Last Admin: 05/29/18 13:44 Dose: 0.4 mg Nystatin (Nystatin Oral Suspension -) 500,000 units PO Q6HPO [facility] Last Admin: 05/29/18 13:09 Dose: Not Given Oxycodone HCl (Oxycontin -) 40 mg PO BID [facility] Last Admin: 05/29/18 09:49 Dose: 40 mg Oxycodone HCl (Roxicodone -) 30 mg PO Q8H PRN PRN Reason: PAIN LEVEL 7 - 10 Last Admin: 05/28/18 18:57 Dose: 30 mg - Objective Vital Signs: Vital Signs Temperature 97.9 F 05/29/18 06:00 Pulse Rate 100 H 05/29/18 13:58 Respiratory Rate 20 05/29/18 13:58 Blood Pressure 148/92 05/29/18 13:58 O2 Sat by Pulse Oximetry (%) 96 05/29/18 09:00 Constitutional: Yes: No Distress, Calm Eyes: Yes: Conjunctiva Clear HENT: Yes: Atraumatic Cardiovascular: Yes: Regular Rate and Rhythm Respiratory: Yes: Regular, Rhonchi Gastrointestinal: Yes: Normal Bowel Sounds, Soft Musculoskeletal: Yes: Muscle Weakness Extremities: Yes: WNL Edema: No Neurological: Yes: Alert, Oriented Psychiatric: Yes: Alert, Oriented Labs: CBC, BMP 05/29/18 06:20 05/29/18 06:20 INR, PTT INR 1.64 (0.83-1.09) H 05/20/18 16:46 Problem List - Problems (1) GUCCI (acute kidney injury) Assessment/Plan: -neuro on board -monitor renal function -BUN/Cr Code(s): N17.9 - ACUTE KIDNEY FAILURE, UNSPECIFIED (2) COPD exacerbation Assessment/Plan: -pulm on board -keep SpO2 >90% -O2 via NC for SOB -bronchodilators -IV Solumedrol -Cefuroxime PO -Symbicort Code(s): J44.1 - CHRONIC OBSTRUCTIVE PULMONARY DISEASE W (ACUTE) EXACERBATION (3) Leukocytosis Assessment/Plan: -WBC 18.6 -PO Cefoxime -2/2 IV steroids -afebrile - Code(s): D72.829 - ELEVATED WHITE BLOOD CELL COUNT, UNSPECIFIED (4) Sickle cell anemia Assessment/Plan: -Retic 2.14 -conntinue Folic Acid -O2 via [place] -pain management Code(s): D57.1 - SICKLE-CELL DISEASE WITHOUT CRISIS Qualifiers: Sickle-cell associated disorders: without crisis Qualified Code(s): D57.1 - Sickle-cell disease without crisis (5) HTN (hypertension) Assessment/Plan: -continue Losartan -low Na diet Code(s): I10 - ESSENTIAL (PRIMARY) HYPERTENSION Qualifiers: Hypertension type: essential hypertension Qualified Code(s): I10 - Essential (primary) hypertension (6) Chest pain Assessment/Plan: -EKG STAT shows NSR -troponin stat -nitroglycerin SL prn -cardiology consult Code(s): R07.9 - CHEST PAIN, UNSPECIFIED
--- NOTE | 2018-05-29 14:16 | EKG ---
Test Reason : Blood Pressure : / mmHG Vent. Rate : 094 BPM Atrial Rate : 094 BPM P-R Int : 142 ms QRS Dur : 078 ms QT Int : 320 ms P-R-T Axes : 070 -20 064 degrees QTc Int : 400 ms NORMAL SINUS RHYTHM NORMAL ECG WHEN COMPARED WITH ECG OF 20-MAY-2018 16:08, NO SIGNIFICANT CHANGE WAS FOUND Confirmed by YEHUDA MAJOR MD ([id number]) on 05/29/2018 2:15:34 PM Referred By: ANDREW SILVESTRE Confirmed By:YEHUDA MAJOR MD
--- NOTE | 2018-05-29 15:54 | CON.CARD ---
Consult Consult Specialty:: Cardiology Reason for Consultation:: Chest pain - History of Present Illness Chief Complaint: Chest Pain History of Present Illness: This is a 73 year old female with a PMH of COPD, Asthma, pE (on Eliquis), HTN, Sickle Cell Disease, Chronic Back Pain, and Substance Abuse (prescription). She developed chest pain which she described as a "pulling sensation" in her chest. This was the same sensation (although not as intense) as her past chest crisis secondary to her sickle cell disease. Troponin X1 negative and no EKG changes. - Past Medical History Cardio/Vascular: Yes: HTN Pulmonary: Yes: COPD, Pulmonary Embolus Psych: Yes: Addictions, Other (Pain meds- methadone, oxycodone ) Musculoskeletal: Yes: Chronic low back pain - Past Surgical History Past Surgical History: Yes: Cholecystectomy, Hysterectomy, Joint Replacement ( bilateral hip replacements) - Alcohol/Substance Use Hx Alcohol Use: No History of Substance Use: reports: Prescription - Smoking History Smoking history: Unknown if ever smoked Have you smoked in the past 12 months: No Aproximately how many cigarettes per day: 0 - Social History Usual Living Arrangement: With Spouse ADL: Independent History of Recent Travel: No Home Medications - Allergies Allergies/Adverse Reactions: Allergies Allergy/AdvReac Type Severity Reaction Status Date / Time ciprofloxacin [From Cipro] Allergy Itching Verified 01/21/18 08:48 ciprofloxacin HCl Allergy Itching Verified 01/21/18 08:48 [From Cipro] codeine [Codeine] Allergy Verified 01/21/18 08:48 levofloxacin [From Levaquin] Allergy Itching Verified 01/21/18 08:48 Penicillins Allergy Itching Verified 01/21/18 08:48 Sulfa (Sulfonamide Allergy Verified 01/21/18 08:48 Antibiotics) tetanus immune globulin Allergy Verified 01/21/18 08:48 IV DYE Allergy Uncoded 01/21/18 08:48 - Home Medications Home Medications: Ambulatory Orders Folic Acid - 1 mg PO DAILY 02/11/13 Docusate Sodium [Colace -] 100 mg PO DAILY 04/06/15 Montelukast Na [Singulair -] 10 mg PO HS 04/06/15 Budesonide/Formeterol Fumarate [SYMBICORT 160/4.5mcg -] 1 inh PO BID 08/19/15 Cholecalciferol (Vitamin D3) [Vitamin D3 -] 1,000 unit PO DAILY 08/19/15 Ipratropium/Albuterol Sulfate [Combivent Respimat 20-100 Mcg] 1 inh IH Q4H PRN 08/19/15 Acetaminophen [Tylenol .Extra-Strength -] 1,000 mg PO Q8H PRN #0 tablet Albuterol Sulfate [Proair Hfa] 2 inh IH QID PRN 01/21/18 Gabapentin 300 mg PO HS 01/21/18 Losartan Potassium [Cozaar -] 50 mg PO DAILY 01/21/18 Cefuroxime Axetil [Ceftin -] 500 mg PO BID #10 tablet MDD 2 01/26/18 oxyCODONE HCL [Roxybond] 30 mg PO QID PRN 05/21/18 oxyCODONE SR [Oxycontin] 40 mg PO BID 05/21/18 Acetaminophen [Tylenol .Regular Strength -] 650 mg PO Q4H PRN tablet 05/26/18 Albuterol 0.083% Nebulizer Marichuy [Ventolin 0.083% Nebulizer Soln -] 1 amp NEB Q4H PRN amp 05/26/18 Albuterol 2.5/Ipratropium 0.5 [Duoneb -] 1 amp NEB RQID amp 05/26/18 Apixaban [Eliquis -] 5 mg PO BID tablet 05/26/18 Apixaban [Eliquis -] 5 mg PO BID #30 tablet MDD 2 05/26/18 Cefuroxime Axetil [Ceftin -] 500 mg PO BID #14 tablet MDD 2 05/26/18 Duloxetine HCl [Cymbalta -] 30 mg PO BID capsule. 05/26/18 Folic Acid - 1 mg PO DAILY tablet 05/26/18 Guaifenesin Dm [Robitussin Dm -] 10 ml PO Q4H PRN cup 05/26/18 predniSONE [Deltasone -] 10 mg PO DAILY #30 tablet 05/26/18 predniSONE [Deltasone -] See Taper PO DAILY #30 tablet 05/27/18 Family Disease History - Family Disease History Family Disease History: Diabetes: Mother (HTN, TIIDM, Stroke), Heart Disease: Mother, CA: Father (Lung CA), Other: Mother Vital Signs: Vital Signs Temperature 97.9 F 05/29/18 06:00 Pulse Rate 92 H 05/29/18 14:43 Respiratory Rate 20 05/29/18 13:58 Blood Pressure 133/77 05/29/18 14:43 O2 Sat by Pulse Oximetry (%) 96 05/29/18 09:00 Constitutional: Yes: Well Nourished, No Distress HENT: Yes: WNL Neck: Yes: WNL Respiratory: Yes: CTA Bilaterally Gastrointestinal: Yes: Soft Cardiovascular: Yes: Regular Rate and Rhythm (NL S1S2, No MRHG) JVD: No Extremities: Yes: WNL Edema: No Neurological: Yes: Alert, Oriented (Non focal) - Other Data Labs, Other Data: CBC, BMP 05/29/18 06:20 05/29/18 06:20 INR, PTT INR 1.64 (0.83-1.09) H 05/20/18 16:46 Troponin, BNP 05/29/18 13:20 Troponin I < 0.02 Troponin, BNP 05/29/18 13:20 Troponin I < 0.02 Assessment/Plan 73 year old female with a PMH of COPD, Asthma, pE (on Eliquis), HTN, Sickle Cell Disease, Chronic Back Pain, and Substance Abuse (prescription). She developed chest pain which she described as a "pulling sensation" in her chest. This was the same sensation (although not as intense) as her past chest crisis secondary to her sickle cell disease. Troponin X1 negative and no EKG changes. Chest Pain No evidence for a coronary syndrome or myocardial ischemia Chest pain is likely related to sickle cell disease or pulmonary infection Would obtain an echocardiogram to evaluate cardiac structure/function and pericardium. Finish troponin sets Will follow with you.
[2018-05-29] MEDS: GABAPENTIN 300 MG CAPSULE (FP) PO SCH (21:54)
[2018-05-29] MEDS: MONTELUKAST NA 10 MG TABLET PO SCH (21:54)
[2018-05-30] MEDS: methylPREDNISolone NA SUCC 40 MG/1 ML VIAL IVPUSH SCH ×2 (03:43→10:37)
[2018-05-30] MEDS: NYSTATIN 500,000 UNITS/5 ML SUSPENSION PO SCH ×4 (06:45→23:29)
[2018-05-30 07:36] LABS: HEMATOCRIT 34.3 % (32.4-45.2); HEMOGLOBIN 11.7 GM/dL (10.7-15.3); MCH 28.6 pg (25.7-33.7); MCHC 34.2 g/dl (32.0-36.0); MEAN CELL VOLUME 83.6 fl (80-96); MEAN PLT VOLUME 8.3 fl (7.5-11.1); PLATELET COUNT 380 K/MM3 (134-434); RDW 18.4 % (11.6-15.6)
[2018-05-30 08:03] LABS: ALBUMIN 3.3 g/dl (3.4-5.0); ALK PHOS 117 U/L (45-117); ANION GAP 6 MMOL/L (8-16); BILIRUBIN,TOTAL 0.4 mg/dL (0.2-1); BLOOD UREA NITROGEN 16 mg/dL (7-18); CALCIUM 9.1 mg/dL (8.5-10.1); CHLORIDE 102 mmol/L (98-107); CO2 29 mmol/L (21-32); POTASSIUM 4.8 mmol/L (3.5-5.1); SGOT/AST 7 U/L (15-37); SGPT/ALT 12 U/L (13-61); SODIUM 137 mmol/L (136-145)
[2018-05-30] MEDS: ALBUTEROL SO4 2.5/IPRATROPIUM 0.5 INH SOL 3 ML VIAL.NEB. NEB SCH ×4 (09:08→22:00)
[2018-05-30 09:27] LABS: GLUCOSE,RANDOM 321 mg/dL (74-106)
[2018-05-30] MEDS: DULoxetine HCL 30 MG CAPSULE.DR (FP) PO SCH ×2 (10:37→22:19)
[2018-05-30] MEDS: APIXABAN 5 MG TABLET PO SCH ×2 (10:37→22:19)
[2018-05-30] MEDS: FOLIC ACID 1 MG TABLET (FP) PO SCH (10:38)
[2018-05-30] MEDS: DOCUSATE SODIUM 100 MG CAPSULE (FP) PO SCH ×2 (10:38→22:19)
[2018-05-30] MEDS: LOSARTAN POTASSIUM 50 MG TABLET (FP) PO SCH (10:38)
[2018-05-30] MEDS: oxyCODONE HCL 40 MG SUSTAINED ACTING TABLET PO SCH ×2 (10:38→22:18)
[2018-05-30] MEDS: CEFUROXIME AXETIL 500 MG TABLET PO SCH ×2 (10:39→22:19)
[2018-05-30] MEDS: BUDESONIDE/FORMETEROL FUMARATE 160/4.5 mcg INHALER IH SCH ×2 (10:41→22:20)
--- NOTE | 2018-05-30 10:50 | PN ---
Progress Note (short form) - Note Progress Note: PULMONARY Breathing continues to improve. Less cough and wheezing. No fevers. Ambulated down hallway last night. Vital Signs Period Temp Pulse Resp BP Sys/Mendez Pulse Ox Last 24 Hr 98.1 F-98.3 F 86-112 20-24 120-174/73-102 96 Gen: NAD at rest Heart: RRR Lung: decreased breath sounds at the bases Abd: soft, nontender Ext: no edema CBC, BMP 05/30/18 07:00 05/30/18 07:00 Active Medications Acetaminophen (Tylenol -) 650 mg PO Q4H PRN PRN Reason: PAIN OR FEVER Albuterol Sulfate (Ventolin 0.083% Nebulizer Soln -) 1 amp NEB Q4H PRN PRN Reason: SHORT OF BREATH/WHEEZING Albuterol/Ipratropium (Duoneb -) 1 amp NEB RQID [facility] Last Admin: 05/30/18 09:08 Dose: 1 amp Apixaban (Eliquis -) 5 mg PO BID [facility] Last Admin: 05/29/18 21:54 Dose: 5 mg Benzocaine/Menthol (Cepacol Lozenge -) 1 each MM PRN PRN PRN Reason: SORE THROAT Budesonide/Formoterol Fumarate (Symbicort 160/4.5mcg -) 1 puff IH BID [facility] Last Admin: 05/29/18 21:55 Dose: 1 puff Cefuroxime Axetil (Ceftin -) 500 mg PO BID [facility] Last Admin: 05/29/18 21:54 Dose: 500 mg Docusate Sodium (Colace -) 100 mg PO BID [facility] Last Admin: 05/29/18 21:55 Dose: 100 mg Duloxetine HCl (Cymbalta -) 30 mg PO BID [facility] Last Admin: 05/29/18 21:54 Dose: 30 mg Folic Acid (Folic Acid -) 1 mg PO DAILY [facility] Last Admin: 05/29/18 09:49 Dose: 1 mg Gabapentin (Neurontin -) 300 mg PO HS [facility] Last Admin: 05/29/18 21:54 Dose: 300 mg Guaifenesin (Robitussin Dm -) 10 ml PO Q4H PRN PRN Reason: COUGH Last Admin: 05/29/18 22:02 Dose: 10 ml Losartan Potassium (Cozaar -) 50 mg PO DAILY [facility] Last Admin: 05/29/18 09:49 Dose: 50 mg Methylprednisolone Sodium Succinate (Solu-Medrol -) 40 mg IVPUSH Q6H-IV [facility] Last Admin: 05/30/18 03:43 Dose: 40 mg Montelukast Sodium (Singulair -) 10 mg PO HS [facility] Last Admin: 05/29/18 21:54 Dose: 10 mg Nitroglycerin (Nitrostat -) 0.4 mg SL Q5M PRN PRN Reason: FOR CHEST PAIN Last Admin: 05/29/18 13:44 Dose: 0.4 mg Nystatin (Nystatin Oral Suspension -) 500,000 units PO Q6HPO [facility] Last Admin: 05/30/18 06:45 Dose: 500,000 units Oxycodone HCl (Oxycontin -) 40 mg PO BID [facility] Last Admin: 05/29/18 21:54 Dose: 40 mg A/P Acute COPD Exacerbation Acute Bronchitis Acute Kidney Injury h/o PE HTN - will change steroids to PO prednisone 60mg daily, can taper as outpt - inhaled bronchodilators standing and PRN - cough suppressants - O2 to keep SpO2 >90% - continue anticoagulation - outpt PFTs - DVT prophylaxis Problem List - Problems (1) COPD exacerbation Code(s): J44.1 - CHRONIC OBSTRUCTIVE PULMONARY DISEASE W (ACUTE) EXACERBATION (2) GUCCI (acute kidney injury) Code(s): N17.9 - ACUTE KIDNEY FAILURE, UNSPECIFIED (3) HTN (hypertension) Code(s): I10 - ESSENTIAL (PRIMARY) HYPERTENSION Qualifiers: Hypertension type: essential hypertension Qualified Code(s): I10 - Essential (primary) hypertension
--- NOTE | 2018-05-30 11:14 | PN ---
Progress Note, Physician History of Present Illness: seen and examined today in nad. states she is feeling much better today. pain resolved and sob resolved. - Current Medication List Current Medications: Active Medications Acetaminophen (Tylenol -) 650 mg PO Q4H PRN PRN Reason: PAIN OR FEVER Albuterol Sulfate (Ventolin 0.083% Nebulizer Soln -) 1 amp NEB Q4H PRN PRN Reason: SHORT OF BREATH/WHEEZING Albuterol/Ipratropium (Duoneb -) 1 amp NEB RQID [facility] Last Admin: 05/30/18 09:08 Dose: 1 amp Apixaban (Eliquis -) 5 mg PO BID [facility] Last Admin: 05/30/18 10:37 Dose: 5 mg Benzocaine/Menthol (Cepacol Lozenge -) 1 each MM PRN PRN PRN Reason: SORE THROAT Budesonide/Formoterol Fumarate (Symbicort 160/4.5mcg -) 1 puff IH BID [facility] Last Admin: 05/30/18 10:41 Dose: 1 puff Cefuroxime Axetil (Ceftin -) 500 mg PO BID [facility] Last Admin: 05/30/18 10:39 Dose: 500 mg Docusate Sodium (Colace -) 100 mg PO BID [facility] Last Admin: 05/30/18 10:38 Dose: 100 mg Duloxetine HCl (Cymbalta -) 30 mg PO BID [facility] Last Admin: 05/30/18 10:37 Dose: 30 mg Folic Acid (Folic Acid -) 1 mg PO DAILY [facility] Last Admin: 05/30/18 10:38 Dose: 1 mg Gabapentin (Neurontin -) 300 mg PO HS [facility] Last Admin: 05/29/18 21:54 Dose: 300 mg Guaifenesin (Robitussin Dm -) 10 ml PO Q4H PRN PRN Reason: COUGH Last Admin: 05/29/18 22:02 Dose: 10 ml Losartan Potassium (Cozaar -) 50 mg PO DAILY [facility] Last Admin: 05/30/18 10:38 Dose: 50 mg Methylprednisolone Sodium Succinate (Solu-Medrol -) 40 mg IVPUSH Q6H-IV [facility] Last Admin: 05/30/18 10:37 Dose: 40 mg Montelukast Sodium (Singulair -) 10 mg PO HS [facility] Last Admin: 05/29/18 21:54 Dose: 10 mg Nitroglycerin (Nitrostat -) 0.4 mg SL Q5M PRN PRN Reason: FOR CHEST PAIN Last Admin: 05/29/18 13:44 Dose: 0.4 mg Nystatin (Nystatin Oral Suspension -) 500,000 units PO Q6HPO [facility] Last Admin: 05/30/18 06:45 Dose: 500,000 units Oxycodone HCl (Oxycontin -) 40 mg PO BID [facility] Last Admin: 05/30/18 10:38 Dose: 40 mg - Objective Vital Signs: Vital Signs Temperature 98.1 F 05/30/18 06:00 Pulse Rate 86 05/30/18 06:00 Respiratory Rate 20 05/30/18 06:00 Blood Pressure 136/73 05/30/18 06:00 O2 Sat by Pulse Oximetry (%) 96 05/29/18 21:00 Constitutional: Yes: No Distress, Calm Eyes: Yes: Conjunctiva Clear, EOM Intact HENT: Yes: Atraumatic, Normocephalic Neck: Yes: Supple, Trachea Midline Cardiovascular: Yes: Regular Rate and Rhythm, S1, S2. No: Bradycardia, Tachycardia, Pulse Irregular, Bruit, JVD, Gallop, Murmur, Rub, S3, S4, Varicosities Respiratory: Yes: Regular. No: Rales, Rhonchi, SOB, Wheezes Gastrointestinal: Yes: Normal Bowel Sounds, Soft. No: Distention, Tenderness Edema: No Peripheral Pulses WNL: Yes Neurological: Yes: Alert, Oriented Psychiatric: Yes: Alert, Oriented Labs: CBC, BMP 05/30/18 07:00 05/30/18 07:00 INR, PTT INR 1.64 (0.83-1.09) H 05/20/18 16:46 - ....Imaging Chest X-ray: Report Reviewed, Image Reviewed EKG: Report Reviewed, Image Reviewed Other: Report Reviewed, Image Reviewed Assessment/Plan 73 year old female with a PMH of COPD, Asthma, pE (on Eliquis), HTN, Sickle Cell Disease, Chronic Back Pain, and Substance Abuse (prescription). She developed chest pain which she described as a "pulling sensation" in her chest. This was the same sensation (although not as intense) as her past chest crisis secondary to her sickle cell disease. Troponin X1 negative and no EKG changes. Chest Pain-unlikely cardiac in origin No evidence for a coronary syndrome or myocardial ischemia 1 troponin was wnl Symptoms resolved Would obtain an echocardiogram to evaluate cardiac structure/function and pericardium. Will follow with you.
--- NOTE | 2018-05-30 15:15 | PN ---
Progress Note, Physician Chief Complaint: COPD Exacerbation Sickle Cell Anemia GUCCI History of Present Illness: Previous notes and events reviewed awake and alert NAD denies chest pain, SOB, dizziness sts feeling better and that breathing has improved - Current Medication List Current Medications: Active Medications Acetaminophen (Tylenol -) 650 mg PO Q4H PRN PRN Reason: PAIN OR FEVER Albuterol Sulfate (Ventolin 0.083% Nebulizer Soln -) 1 amp NEB Q4H PRN PRN Reason: SHORT OF BREATH/WHEEZING Albuterol/Ipratropium (Duoneb -) 1 amp NEB RQID [facility] Last Admin: 05/30/18 12:37 Dose: 1 amp Apixaban (Eliquis -) 5 mg PO BID [facility] Last Admin: 05/30/18 10:37 Dose: 5 mg Benzocaine/Menthol (Cepacol Lozenge -) 1 each MM PRN PRN PRN Reason: SORE THROAT Budesonide/Formoterol Fumarate (Symbicort 160/4.5mcg -) 1 puff IH BID [facility] Last Admin: 05/30/18 10:41 Dose: 1 puff Cefuroxime Axetil (Ceftin -) 500 mg PO BID [facility] Last Admin: 05/30/18 10:39 Dose: 500 mg Docusate Sodium (Colace -) 100 mg PO BID [facility] Last Admin: 05/30/18 10:38 Dose: 100 mg Duloxetine HCl (Cymbalta -) 30 mg PO BID [facility] Last Admin: 05/30/18 10:37 Dose: 30 mg Folic Acid (Folic Acid -) 1 mg PO DAILY [facility] Last Admin: 05/30/18 10:38 Dose: 1 mg Gabapentin (Neurontin -) 300 mg PO [facility] Last Admin: 05/29/18 21:54 Dose: 300 mg Guaifenesin (Robitussin Dm -) 10 ml PO Q4H PRN PRN Reason: COUGH Last Admin: 05/29/18 22:02 Dose: 10 ml Losartan Potassium (Cozaar -) 50 mg PO DAILY [facility] Last Admin: 05/30/18 10:38 Dose: 50 mg Montelukast Sodium (Singulair -) 10 mg PO HS [facility] Last Admin: 05/29/18 21:54 Dose: 10 mg Nitroglycerin (Nitrostat -) 0.4 mg SL Q5M PRN PRN Reason: FOR CHEST PAIN Last Admin: 05/29/18 13:44 Dose: 0.4 mg Nystatin (Nystatin Oral Suspension -) 500,000 units PO Q6HPO [facility] Last Admin: 05/30/18 11:37 Dose: 500,000 units Oxycodone HCl (Oxycontin -) 40 mg PO BID [facility] Last Admin: 05/30/18 10:38 Dose: 40 mg Prednisone (Deltasone -) 60 mg PO DAILY [facility] - Objective Vital Signs: Vital Signs Temperature 98.1 F 05/30/18 06:00 Pulse Rate 76 05/30/18 10:00 Respiratory Rate 18 05/30/18 10:00 Blood Pressure 150/88 05/30/18 10:00 O2 Sat by Pulse Oximetry (%) 96 05/30/18 09:00 Constitutional: Yes: No Distress, Calm Eyes: Yes: Conjunctiva Clear HENT: Yes: Atraumatic Cardiovascular: Yes: Regular Rate and Rhythm Respiratory: Yes: Regular, CTA Bilaterally Gastrointestinal: Yes: Normal Bowel Sounds, Soft Musculoskeletal: Yes: Muscle Weakness Extremities: Yes: WNL Edema: No Neurological: Yes: Alert, Oriented Psychiatric: Yes: Alert, Oriented Labs: CBC, BMP 05/30/18 07:00 05/30/18 07:00 INR, PTT INR 1.64 (0.83-1.09) H 05/20/18 16:46 Problem List - Problems (1) GUCCI (acute kidney injury) Assessment/Plan: -monitor renal function -BUN/Cr 161.0 Code(s): N17.9 - ACUTE KIDNEY FAILURE, UNSPECIFIED (2) COPD exacerbation Assessment/Plan: -pulm on board -keep SpO2 >90% -O2 via NC for SOB -bronchodilators -IV Solumedrol--change to Prednisone in AM -Cefuroxime PO -Symbicort Code(s): J44.1 - CHRONIC OBSTRUCTIVE PULMONARY DISEASE W (ACUTE) EXACERBATION (3) Leukocytosis Assessment/Plan: -WBC 21.0 -PO Cefoxime -2/2 IV steroids -afebrile Code(s): D72.829 - ELEVATED WHITE BLOOD CELL COUNT, UNSPECIFIED (4) Sickle cell anemia Assessment/Plan: -Retic 2.14 -conntinue Folic Acid -O2 via NC -pain management Code(s): D57.1 - SICKLE-CELL DISEASE WITHOUT CRISIS Qualifiers: Sickle-cell associated disorders: without crisis Qualified Code(s): D57.1 - Sickle-cell disease without crisis (5) HTN (hypertension) Assessment/Plan: -continue Losartan -low Na diet Code(s): I10 - ESSENTIAL (PRIMARY) HYPERTENSION Qualifiers: Hypertension type: essential hypertension Qualified Code(s): I10 - Essential (primary) hypertension (6) Chest pain Assessment/Plan: -resolved -troponin neg -nitroglycerin SL prn -cardiology on board Code(s): R07.9 - CHEST PAIN, UNSPECIFIED Assessment/Plan see problem list dvt ppx
[2018-05-30] MEDS: guaiFENesin/D-METHORPHAN HB 10 ML UNIT-DOSE CUPS PO PRN (22:18)
[2018-05-30] MEDS: GABAPENTIN 300 MG CAPSULE (FP) PO SCH (22:19)
[2018-05-30] MEDS: MONTELUKAST NA 10 MG TABLET PO SCH (22:19)
[2018-05-31] MEDS: NYSTATIN 500,000 UNITS/5 ML SUSPENSION PO SCH ×2 (05:59→13:13)
[2018-05-31 07:56] LABS: ALBUMIN 2.8 g/dl (3.4-5.0); ALK PHOS 114 U/L (45-117); ANION GAP 7 MMOL/L (8-16); BILIRUBIN,TOTAL 0.4 mg/dL (0.2-1); BLOOD UREA NITROGEN 15 mg/dL (7-18); CALCIUM 8.8 mg/dL (8.5-10.1); CHLORIDE 104 mmol/L (98-107); CO2 29 mmol/L (21-32); GLUCOSE,RANDOM 222 mg/dL (74-106); SGOT/AST 7 U/L (15-37); SGPT/ALT 13 U/L (13-61); SODIUM 140 mmol/L (136-145); TOT PROT 6.9 g/dl (6.4-8.2)
[2018-05-31 08:02] LABS: HEMATOCRIT 33.7 % (32.4-45.2); HEMOGLOBIN 11.3 GM/dL (10.7-15.3); MCH 28.2 pg (25.7-33.7); MCHC 33.4 g/dl (32.0-36.0); MEAN CELL VOLUME 84.4 fl (80-96); MEAN PLT VOLUME 8.3 fl (7.5-11.1); PLATELET COUNT 344 K/MM3 (134-434); RDW 17.9 % (11.6-15.6); WHITE BLOOD COUNT 22.9 K/mm3 (4.0-10.0)
[2018-05-31] MEDS: ALBUTEROL SO4 2.5/IPRATROPIUM 0.5 INH SOL 3 ML VIAL.NEB. NEB SCH ×2 (08:30→12:13)
[2018-05-31] MEDS ORDERED: predniSONE 20 MG TABLET (UD) PO SCH (10:00)
[2018-05-31] MEDS: LOSARTAN POTASSIUM 50 MG TABLET (FP) PO SCH (10:33)
[2018-05-31] MEDS: CEFUROXIME AXETIL 500 MG TABLET PO SCH (10:33)
[2018-05-31] MEDS: DOCUSATE SODIUM 100 MG CAPSULE (FP) PO SCH (10:33)
[2018-05-31] MEDS: DULoxetine HCL 30 MG CAPSULE.DR (FP) PO SCH (10:33)
[2018-05-31] MEDS: FOLIC ACID 1 MG TABLET (FP) PO SCH (10:33)
[2018-05-31] MEDS: oxyCODONE HCL 40 MG SUSTAINED ACTING TABLET PO SCH (10:34)
[2018-05-31] MEDS: APIXABAN 5 MG TABLET PO SCH (10:34)
[2018-05-31] MEDS: BUDESONIDE/FORMETEROL FUMARATE 160/4.5 mcg INHALER IH SCH (10:35)
[2018-05-31] MEDS: guaiFENesin/D-METHORPHAN HB 10 ML UNIT-DOSE CUPS PO PRN (10:41)
--- NOTE | 2018-05-31 11:38 | DS ---
Physical Examination Vital Signs: Vital Signs Temperature 98.5 F 05/31/18 06:00 Pulse Rate 93 H 05/31/18 06:00 Respiratory Rate 20 05/31/18 06:00 Blood Pressure 100/54 L 05/31/18 06:00 O2 Sat by Pulse Oximetry (%) 96 05/30/18 21:00 Findings/Remarks: This is a 73 y/o woman with a PMHx of COPD, Asthma, pE (on Eliquis), HTN, Sickle Cell Disease, Chronic Back Pain, Substance Abuse (prescription). Who presents to the ED with a productive cough with green phlegm, SOB x 3 days. Patient denies fever, chills, dizziness, CP, palpitations, AP, N/V/D, constipation, dysuria. Constitutional: Yes: Well Nourished, No Distress, Calm Cardiovascular: Yes: Regular Rate and Rhythm Respiratory: Yes: Regular Gastrointestinal: Yes: Normal Bowel Sounds, Soft Musculoskeletal: Yes: WNL Extremities: Yes: WNL Edema: No Peripheral Pulses WNL: Yes Neurological: Yes: Alert, Oriented Psychiatric: Yes: Alert, Oriented Labs: CBC, BMP 05/31/18 06:30 05/31/18 06:30 Discharge Summary Reason For Visit: ACUTE KIDNEY INJURY/OBSTRUCTIVE CHRONIC Current Active Problems GUCCI (acute kidney injury) (Acute) COPD exacerbation (Acute) Chest pain (Acute) Hospital Course: Laboratory Last Values WBC 22.9 K/mm3 (4.0-10.0) H 05/31/18 06:30 RBC 4.00 M/mm3 (3.60-5.2) 05/31/18 06:30 Hgb 11.3 GM/dL (10.7-15.3) 05/31/18 06:30 Hct 33.7 % (32.4-45.2) 05/31/18 06:30 MCV 84.4 fl (80-96) 05/31/18 06:30 MCH 28.2 pg (25.7-33.7) 05/31/18 06:30 MCHC 33.4 g/dl (32.0-36.0) 05/31/18 06:30 RDW 17.9 % (11.6-15.6) H 05/31/18 06:30 Plt Count 344 K/MM3 (134-434) 05/31/18 06:30 MPV 8.3 fl (7.5-11.1) 05/31/18 06:30 Absolute Neuts (auto) 12.2 K/mm3 (1.5-8.0) H 05/25/18 06:25 Neutrophils % 59.4 % (42.8-82.8) 05/25/18 06:25 Neutrophils % (Manual) 74.0 % (42.8-82.8) 05/25/18 06:25 Band Neutrophils % 0.0 % 05/25/18 06:25 Lymphocytes % 35.7 % (8-40) D 05/25/18 06:25 Lymphocytes % (Manual) 17.7 % (8-40) D 05/25/18 06:25 Monocytes % 3.9 % (3.8-10.2) 05/25/18 06:25 Monocytes % (Manual) 6 % (3.8-10.2) D 05/25/18 06:25 Eosinophils % 0.5 % (0-4.5) D 05/25/18 06:25 Eosinophils % (Manual) 0.0 % (0-4.5) 05/25/18 06:25 Basophils % 0.5 % (0-2.0) 05/25/18 06:25 Basophils % (Manual) 1.0 % (0-2.0) D 05/25/18 06:25 Myelocytes % (Man) 1 % (0-2) D 05/25/18 06:25 Promyelocytes % (Man) 0 % (0-2) 05/25/18 06:25 Blast Cells % (Manual) 0 % (0-0) 05/25/18 06:25 Nucleated RBC % 4 % (0-0) H 05/25/18 06:25 Metamyelocytes 0 % (0-2) 05/25/18 06:25 Hypochromia 0 05/25/18 06:25 Platelet Estimate Normal 05/25/18 06:25 Polychromasia 0 05/25/18 06:25 Poikilocytosis 2+ 05/25/18 06:25 Anisocytosis 0 05/25/18 06:25 Microcytosis 0 05/25/18 06:25 Macrocytosis 0 05/25/18 06:25 Target Cells 2+ 05/25/18 06:25 Retic Count 2.14 % (0.5-1.5) H 05/20/18 18:01 PT with INR 19.50 SEC (9.7-13.0) H 05/20/18 16:46 INR 1.64 (0.83-1.09) H 05/20/18 16:46 PTT (Actin FS) 34.9 SECONDS (25.2-36.5) 05/20/18 16:46 Sodium 140 mmol/L (136-145) 05/31/18 06:30 Potassium 4.0 mmol/L (3.5-5.1) 05/31/18 06:30 Chloride 104 mmol/L (98-107) 05/31/18 06:30 Carbon Dioxide 29 mmol/L (21-32) 05/31/18 06:30 Anion Gap 7 MMOL/L (8-16) L 05/31/18 06:30 BUN 15 mg/dL (7-18) 05/31/18 06:30 Creatinine 1.0 mg/dL (0.55-1.3) 05/31/18 06:30 Creat Clearance w eGFR 54.20 (>60) 05/31/18 06:30 POC Glucometer 224 UNITS (80-120) 05/31/18 06:39 Random Glucose 222 mg/dL (74-106) H 05/31/18 06:30 Calcium 8.8 mg/dL (8.5-10.1) 05/31/18 06:30 Phosphorus 2.5 mg/dL (2.5-4.9) 05/21/18 06:10 Magnesium 1.9 mg/dL (1.8-2.4) 05/21/18 06:10 Total Bilirubin 0.4 mg/dL (0.2-1) 05/31/18 06:30 AST 7 U/L (15-37) L 05/31/18 06:30 ALT 13 U/L (13-61) 05/31/18 06:30 Alkaline Phosphatase 114 U/L (45-117) 05/31/18 06:30 Troponin I < 0.02 ng/ml (0.00-0.05) 05/29/18 13:20 Total Protein 6.9 g/dl (6.4-8.2) 05/31/18 06:30 Albumin 2.8 g/dl (3.4-5.0) L 05/31/18 06:30 Urine Color Yellow 05/24/18 03:31 Urine Appearance Clear 05/24/18 03:31 Urine pH 7.0 (5.0-8.0) 05/24/18 03:31 Ur Specific [place] 1.013 (1.010-1.035) 05/24/18 03:31 Urine Protein Negative (NEGATIVE) 05/24/18 03:31 Urine Glucose (UA) Negative (NEGATIVE) 05/24/18 03:31 Urine Ketones Negative (NEGATIVE) 05/24/18 03:31 Urine Blood Negative (NEGATIVE) 05/24/18 03:31 Urine Nitrite Negative (NEGATIVE) 05/24/18 03:31 Urine Bilirubin Negative (NEGATIVE) 05/24/18 03:31 Urine Urobilinogen 1.0 mg/dL (0.2-1.0) 05/24/18 03:31 Ur Leukocyte Esterase Negative (NEGATIVE) 05/24/18 03:31 Influenza A (Rapid) Negative 05/21/18 11:15 Influenza B (Rapid) Negative 05/21/18 11:15 Microbiology 05/23/18 17:45 Blood - Peripheral Venous Blood Culture - Final NO GROWTH AFTER 5 DAYS INCUBATION 05/23/18 17:50 Blood - Peripheral Venous Blood Culture - Final NO GROWTH AFTER 5 DAYS INCUBATION 05/24/18 03:31 Urine - Urine Clean Catch Urine Culture - Final Contaminated: Please Repeat Vital Signs Temp 98.5 F 05/31/18 06:00 Pulse 93 H 05/31/18 06:00 Resp 20 05/31/18 06:00 BP 100/54 L 05/31/18 06:00 Pulse Ox 96 05/30/18 21:00 Intake & Output 05/30/18 05/30/18 05/31/18 11:59 23:59 11:59 Intake Total 420 840 Balance 420 840 Intake: Oral 420 840 Other: Voiding Method Toilet Toilet Toilet # Unmeasured Voids Void 0 2 1 Bowel Movement No Yes # Bowel Movements 1 Condition: Stable - Instructions Diet, Activity, Other Instructions: Taper prednisone as directed Continue cefuroxime as directed F/U with your PCP within 1 week Disposition: HOME - Home Medications Comprehensive Discharge Medication List: Ambulatory Orders Folic Acid - 1 mg PO DAILY 02/11/13 Docusate Sodium [Colace -] 100 mg PO DAILY 04/06/15 Montelukast Na [Singulair -] 10 mg PO HS 04/06/15 Budesonide/Formeterol Fumarate [SYMBICORT 160/4.5mcg -] 1 inh PO BID 08/19/15 Cholecalciferol (Vitamin D3) [Vitamin D3 -] 1,000 unit PO DAILY 08/19/15 Ipratropium/Albuterol Sulfate [Combivent Respimat 20-100 Mcg] 1 inh IH Q4H PRN 08/19/15 Acetaminophen [Tylenol .Extra-Strength -] 1,000 mg PO Q8H PRN #0 tablet Albuterol Sulfate [Proair Hfa] 2 inh IH QID PRN 01/21/18 Gabapentin 300 mg PO HS 01/21/18 Losartan Potassium [Cozaar -] 50 mg PO DAILY 01/21/18 Cefuroxime Axetil [Ceftin -] 500 mg PO BID #10 tablet MDD 2 01/26/18 oxyCODONE HCL [Roxybond] 30 mg PO QID PRN 05/21/18 oxyCODONE SR [Oxycontin] 40 mg PO BID 05/21/18 Acetaminophen [Tylenol .Regular Strength -] 650 mg PO Q4H PRN tablet 05/26/18 Albuterol 0.083% Nebulizer [place] [Ventolin 0.083% Nebulizer Soln -] 1 amp NEB Q4H PRN amp 05/26/18 Albuterol 2.5/Ipratropium 0.5 [Duoneb -] 1 amp NEB RQID amp 05/26/18 Apixaban [Eliquis -] 5 mg PO BID tablet 05/26/18 Apixaban [Eliquis -] 5 mg PO BID #30 tablet MDD 2 05/26/18 Cefuroxime Axetil [Ceftin -] 500 mg PO BID #14 tablet MDD 2 05/26/18 Duloxetine HCl [Cymbalta -] 30 mg PO BID capsule. 05/26/18 Folic Acid - 1 mg PO DAILY tablet 05/26/18 Guaifenesin Dm [Robitussin Dm -] 10 ml PO Q4H PRN cup 05/26/18 predniSONE [Deltasone -] 10 mg PO DAILY #30 tablet 05/26/18 predniSONE [Deltasone -] See Taper PO DAILY #30 tablet 05/27/18
[2018-05-31 13:25] VITALS: BP 125/76; PULSE 115; TEMP 98.1
== END 2018-05-31 14:43 | disposition home or self-care (01) | DRG 191 ==
LOC: JER 16:09 → JERBED 19:22 → J5S 05-21 02:15 → OBSVTOIN 05-21 14:14
PROVIDERS: ADMIT Family Medicine; ATTEND Family Medicine
DX: J44.1 Chronic obstructive pulmonary disease with (acute) exacerbation (principal); N17.9 Acute kidney failure, unspecified; I10 Essential (primary) hypertension; M54.5 Low back pain; D72.829 Elevated white blood cell count, unspecified; E66.9 Obesity, unspecified; Z68.30 Body mass index [BMI] 30.0-30.9, adult; E87.6 Hypokalemia; D57.1 Sickle-cell disease without crisis; J20.9 Acute bronchitis, unspecified; Z86.711 Personal history of pulmonary embolism; Z96.643 Presence of artificial hip joint, bilateral; Z79.01 Long term (current) use of anticoagulants
CPT/HCPCS: 36415; 71045-TC-FY; 80048; 80053; 81003; 82962; 83735; 84100; 84484; 85025; 85027; 85044; 85610; 85730; 87040; 87086; 87804; 93005; 93010; 94150; 94640; 99284-25; G0378; J7030

== ENCOUNTER 2018-06-06 19:21 | Inpatient (IN) | payer OTHER ==
--- NOTE | 2018-06-06 19:40 | PDOC ---
History of Present Illness - General Stated Complaint: SYNCOPE Time Seen by Provider: 06/06/18 19:40 History Source: Patient - History of Present Illness Initial Comments: 06/06/18 20:01 The patient is a 73 year old female with a PMH of COPD (not on home O2), PE/DVT (on A/C), Sickle Cell Disease who presents to our ED c/o lightheadedness. Patient states she has been lightheaded since her discharge from the hospital last week but it became particularly bad today when she was lying down causing her to suddenly lose control of her bowel and soil herself. Denies any syncope , shortness of breath, chest pain or palpitations. Currently c/o lightheadedness but states it is better. States she had a similar episode 1-1/ 2 years previous at which time she was found to have a pulmonary embolism. Allergy: Floroquinolones, penicillin As per EMR, patient evaluated in our ED 05/2018 for productive cough and admitted for COPD exacerbation. Past History - Past Medical History Allergies/Adverse Reactions: Allergies Allergy/AdvReac Type Severity Reaction Status Date / Time ciprofloxacin [From Cipro] Allergy Itching Verified 06/06/18 20:43 ciprofloxacin HCl Allergy Itching Verified 06/06/18 20:43 [From Cipro] codeine [Codeine] Allergy Verified 06/06/18 20:43 levofloxacin [From Levaquin] Allergy Itching Verified 06/06/18 20:43 Penicillins Allergy Itching Verified 06/06/18 20:43 Sulfa (Sulfonamide Allergy Verified 06/06/18 20:43 Antibiotics) tetanus immune globulin Allergy Verified 06/06/18 20:43 IV DYE Allergy Uncoded 06/06/18 20:43 Home Medications: Ambulatory Orders Folic Acid - 1 mg PO DAILY 02/11/13 Docusate Sodium [Colace -] 100 mg PO DAILY 04/06/15 Montelukast Na [Singulair -] 10 mg PO HS 04/06/15 Budesonide/Formeterol Fumarate [SYMBICORT 160/4.5mcg -] 1 inh PO BID 08/19/15 Cholecalciferol (Vitamin D3) [Vitamin D3 -] 1,000 unit PO DAILY 08/19/15 Ipratropium/Albuterol Sulfate [Combivent Respimat 20-100 Mcg] 1 inh IH Q4H PRN 08/19/15 Acetaminophen [Tylenol .Extra-Strength -] 1,000 mg PO Q8H PRN #0 tablet Albuterol Sulfate [Proair Hfa] 2 inh IH QID PRN 01/21/18 Gabapentin 300 mg PO HS 01/21/18 Losartan Potassium [Cozaar -] 50 mg PO DAILY 01/21/18 Cefuroxime Axetil [Ceftin -] 500 mg PO BID #10 tablet MDD 2 01/26/18 oxyCODONE HCL [Roxybond] 30 mg PO QID PRN 05/21/18 oxyCODONE SR [Oxycontin] 40 mg PO BID 05/21/18 Acetaminophen [Tylenol .Regular Strength -] 650 mg PO Q4H PRN tablet 05/26/18 Albuterol 0.083% Nebulizer Marichuy [Ventolin 0.083% Nebulizer Soln -] 1 amp NEB Q4H PRN amp 05/26/18 Albuterol 2.5/Ipratropium 0.5 [Duoneb -] 1 amp NEB RQID amp 05/26/18 Apixaban [Eliquis -] 5 mg PO BID tablet 05/26/18 Apixaban [Eliquis -] 5 mg PO BID #30 tablet MDD 2 05/26/18 Cefuroxime Axetil [Ceftin -] 500 mg PO BID #14 tablet MDD 2 05/26/18 Duloxetine HCl [Cymbalta -] 30 mg PO BID capsule. 05/26/18 Folic Acid - 1 mg PO DAILY tablet 05/26/18 Guaifenesin Dm [Robitussin Dm -] 10 ml PO Q4H PRN cup 05/26/18 predniSONE [Deltasone -] 10 mg PO DAILY #30 tablet 05/26/18 predniSONE [Deltasone -] See Taper PO DAILY #30 tablet 05/27/18 Anemia: Yes (SICKLE CELL) Asthma: No (BRONCHITIS) Cancer: No Cardiac Disorders: Yes CVA: No COPD: No CHF: No Dementia: No Diabetes: No GI Disorders: No Disorders: No HTN: Yes Hypercholesterolemia: No Liver Disease: No Seizures: No Thyroid Disease: No - Surgical History Abdominal Surgery: Yes Cardiac Surgery: No Cholecystectomy: Yes Orthopedic Surgery: Yes ([place] hip replacement 2005 ?) - Immunization History Immunization Up to Date: Yes (no pna) - Suicide/Smoking/Psychosocial Hx Smoking Status: No Smoking History: Unknown if ever smoked Have you smoked in the past 12 months: No Number of Cigarettes Smoked Daily: 0 Hx Alcohol Use: No Drug/Substance Use Hx: No Substance Use Type: None Hx Substance Use Treatment: No Review of Systems - Review of Systems Constitutional: No: Chills, Fever HEENTM: No: Blurred Vision, Recent change in vision Respiratory: No: Cough, Shortness of Breath, Stridor, Wheezing Cardiac (ROS): Yes: Lightheadedness. No: Syncope ABD/GI: Yes: Other (loss of bowel control). No: Nausea, Vomiting *Physical Exam - Physical Exam General Appearance: Yes: Nourished, Appropriately Dressed HEENT: positive: Normal Voice, Hearing Grossly Normal Neck: positive: Trachea midline, Supple Respiratory/Chest: positive: Lungs Clear, Normal Breath Sounds Cardiovascular: positive: S1, S2 Female Pelvic Exam: positive: vaginal bleeding Gastrointestinal/Abdominal: positive: Normal Bowel Sounds Extremity: positive: Normal Capillary Refill, Normal Inspection Integumentary: positive: Normal Color, Dry, Warm Neurologic: positive: Fully Oriented, Alert ED Treatment Course - LABORATORY CBC & Chemistry Diagram: 06/06/18 22:00 06/07/18 02:52 Medical Decision Making - Medical Decision Making 06/06/18 20:09 73 year old female with pre-syncopal episode @ home. VS unremarkable. NIHSS 0. Frontal diagnosis: r/o ACS, r/o PE, also consider CVA/TIA as well as infectious including UTI, PNA. PLAN: 1. CBC, CMP, Mg, Troponin 2. EKG 3. Head CT Reassess 06/06/18 22:31 Call from lab, WBC 32, likely 2/2 to steroid use 06/07/18 03:[address] negative Repeat CMP pending 06/07/18 09:03 Patient has GUCCI (Cr 1.8, previous Cr 1.0 on 05/31) likely 2/2 to decreased PO intake and requires admission BS 435 -no h/o DM, likely hyperosmotic Multiple failed attempts at IV access, s/p Central Line - patient signed out to Dr. Price pending confirmation of central line will hang IV fluids. Patient admitted to hospitalist service. *DC/Admit/Observation/Transfer Diagnosis at time of Disposition: GUCCI (acute kidney injury) - Discharge Dispostion Condition at time of disposition: Fair Decision to Admit order: Yes - Referrals - Patient Instructions - Post Discharge Activity
[2018-06-06 21:06] LABS: INR 1.06 (0.83-1.09); PROTHROMBIN TIME (PATIENT) 12.5 SEC (9.7-13.0)
[2018-06-06 22:28] LABS: BASO % 0.5 % (0-2.0); EOS % 0.2 % (0-4.5); HEMATOCRIT 43.7 % (32.4-45.2); HEMOGLOBIN 14.5 GM/dL (10.7-15.3); LYMPH % 8.3 % (8-40); MCH 27.7 pg (25.7-33.7); MCHC 33.2 g/dl (32.0-36.0); MEAN CELL VOLUME 83.5 fl (80-96); MEAN PLT VOLUME 8.7 fl (7.5-11.1); MONO % 6.2 % (3.8-10.2); NEUT % 84.8 % (42.8-82.8); PLATELET COUNT 360 K/MM3 (134-434); RBC 5.23 M/mm3 (3.60-5.2); RDW 18.6 % (11.6-15.6)
[2018-06-06 22:30] LABS: WHITE BLOOD COUNT 31.6 K/mm3 (4.0-10.0)
[2018-06-06 23:38] LABS: PLATELET ESTIMATE ADEQUATE
[2018-06-07 04:12] LABS: ALBUMIN 3.6 g/dl (3.4-5.0); ALK PHOS 137 U/L (45-117); ANION GAP 9 MMOL/L (8-16); BLOOD UREA NITROGEN 44 mg/dL (7-18); CALCIUM 9.8 mg/dL (8.5-10.1); CHLORIDE 91 mmol/L (98-107); CO2 28 mmol/L (21-32); CREATININE 1.7 mg/dL (0.55-1.3); POTASSIUM 4.5 mmol/L (3.5-5.1); SGOT/AST 6 U/L (15-37); SGPT/ALT 14 U/L (13-61); SODIUM 128 mmol/L (136-145); TOT PROT 8.4 g/dl (6.4-8.2)
[2018-06-07 04:13] LABS: ALBUMIN 3.6 g/dl (3.4-5.0); ALK PHOS 137 U/L (45-117); ANION GAP 9 MMOL/L (8-16); BLOOD UREA NITROGEN 44 mg/dL (7-18); CALCIUM 9.6 mg/dL (8.5-10.1); CHLORIDE 92 mmol/L (98-107); CO2 28 mmol/L (21-32); CREATININE 1.8 mg/dL (0.55-1.3); N-TERMINAL BNP 107.9 pg/ml (5-125); POTASSIUM 4.4 mmol/L (3.5-5.1); SGOT/AST 7 U/L (15-37); SGPT/ALT 15 U/L (13-61); SODIUM 129 mmol/L (136-145); TOT PROT 8.4 g/dl (6.4-8.2)
[2018-06-07] MEDS ORDERED: SODIUM CHLORIDE 0.9% 500 ML INFUS.BAG IV ONE ×2 (04:20→04:38)
[2018-06-07 04:28] LABS: GLUCOSE,RANDOM 436 mg/dL (74-106)
[2018-06-07 04:31] LABS: GLUCOSE,RANDOM 435 mg/dL (74-106)
[2018-06-07] MEDS ORDERED: INSULIN REGULAR HUMAN 100 UNITS/ML *VIAL SQ ONE (04:31)
--- NOTE | 2018-06-07 05:49 | HP ---
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 recent admission COPD Exacerbation 05/21-. Who presents to the ED with Lightheadedness, weakness, and diarrhea x 1 day. The patient's who was at bedside reports that the patient has had loose stools and had generalized weakness. Per the , patient is currently still taking Ceftin and Prednisone since discharge. Per the Patient' s denies fever, chills, cough, IVEY, CP, palpitations, AP, N/V, constipation, melena, hematochezia, dysuria. History Source: Patient, Family Member Limitations to Obtaining History: Clinical Condition - Past Medical History Cardiovascular: Yes: Deep Vein Thrombosis, HTN, Other (PE) Pulmonary: Yes: COPD, Pulmonary Embolus Heme/Onc: Yes: Sickle Cell Disease (SC disease) Psych: Yes: Addictions, Other (Pain meds- methadone, oxycodone ) Musculoskeletal: Yes: Chronic low back pain - Past Surgical History Past Surgical History: Yes: Cholecystectomy, Hysterectomy, Joint Replacement ( bilateral hip replacements) - Smoking History Smoking history: Unknown if ever smoked Have you smoked in the past 12 months: No Aproximately how many cigarettes per day: 0 - Alcohol/Substance Use Hx Alcohol Use: No History of Substance Use: reports: Prescription - Social History ADL: Independent History of Recent Travel: No Home Medications - Allergies Allergies/Adverse Reactions: Allergies Allergy/AdvReac Type Severity Reaction Status Date / Time ciprofloxacin [From Cipro] Allergy Itching Verified 06/06/18 20:43 ciprofloxacin HCl Allergy Itching Verified 06/06/18 20:43 [From Cipro] codeine [Codeine] Allergy Verified 06/06/18 20:43 levofloxacin [From Levaquin] Allergy Itching Verified 06/06/18 20:43 Penicillins Allergy Itching Verified 06/06/18 20:43 Sulfa (Sulfonamide Allergy Verified 06/06/18 20:43 Antibiotics) tetanus immune globulin Allergy Verified 06/06/18 20:43 IV DYE Allergy Uncoded 06/06/18 20:43 - Home Medications Home Medications: Ambulatory Orders Folic Acid - 1 mg PO DAILY 02/11/13 Docusate Sodium [Colace -] 100 mg PO DAILY 04/06/15 Montelukast Na [Singulair -] 10 mg PO HS 04/06/15 Budesonide/Formeterol Fumarate [SYMBICORT 160/4.5mcg -] 1 inh PO BID 08/19/15 Cholecalciferol (Vitamin D3) [Vitamin D3 -] 1,000 unit PO DAILY 08/19/15 Ipratropium/Albuterol Sulfate [Combivent Respimat 20-100 Mcg] 1 inh IH Q4H PRN 08/19/15 Acetaminophen [Tylenol .Extra-Strength -] 1,000 mg PO Q8H PRN #0 tablet Albuterol Sulfate [Proair Hfa] 2 inh IH QID PRN 01/21/18 Gabapentin 300 mg PO HS 01/21/18 Losartan Potassium [Cozaar -] 50 mg PO DAILY 01/21/18 Cefuroxime Axetil [Ceftin -] 500 mg PO BID #10 tablet MDD 2 01/26/18 oxyCODONE HCL [Roxybond] 30 mg PO QID PRN 05/21/18 oxyCODONE SR [Oxycontin] 40 mg PO BID 05/21/18 Acetaminophen [Tylenol .Regular Strength -] 650 mg PO Q4H PRN tablet 05/26/18 Albuterol 0.083% Nebulizer Marichuy [Ventolin 0.083% Nebulizer Soln -] 1 amp NEB Q4H PRN amp 05/26/18 Albuterol 2.5/Ipratropium 0.5 [Duoneb -] 1 amp NEB RQID amp 05/26/18 Apixaban [Eliquis -] 5 mg PO BID tablet 05/26/18 Apixaban [Eliquis -] 5 mg PO BID #30 tablet MDD 2 05/26/18 Cefuroxime Axetil [Ceftin -] 500 mg PO BID #14 tablet MDD 2 05/26/18 Duloxetine HCl [Cymbalta -] 30 mg PO BID capsule. 05/26/18 Folic Acid - 1 mg PO DAILY tablet 05/26/18 Guaifenesin Dm [Robitussin Dm -] 10 ml PO Q4H PRN cup 05/26/18 predniSONE [Deltasone -] 10 mg PO DAILY #30 tablet 05/26/18 predniSONE [Deltasone -] See Taper PO DAILY #30 tablet 05/27/18 Atenolol [Tenormin -] 25 mg PO DAILY 06/07/18 Hydrochlorothiazide 12.5 mg PO BID 06/07/18 Family Disease History - Family Disease History Family Disease History: Diabetes: Mother (HTN, TIIDM, Stroke), Heart Disease: Mother, CA: Father (Lung CA), Other: Mother Review of Systems - Review of Systems Constitutional: reports: Weakness Eyes: reports: No Symptoms HENT: reports: No Symptoms Neck: reports: No Symptoms Cardiovascular: reports: No Symptoms Respiratory: reports: No Symptoms Gastrointestinal: reports: Diarrhea (non bloody). denies: Melena, Nausea, Rectal Bleeding, Vomiting, Vomiting Blood Genitourinary: reports: No Symptoms Breasts: reports: No Symptoms Reported Musculoskeletal: reports: Back Pain Integumentary: reports: No Symptoms Neurological: reports: Dizziness, Weakness Endocrine: reports: No Symptoms Hematology/Lymphatic: reports: No Symptoms Psychiatric: reports: No Symptoms Physical Examination Vital Signs: Vital Signs Temperature 96.8 F L 06/06/18 19:21 Pulse Rate 82 06/06/18 19:21 Respiratory Rate 18 06/06/18 19:21 Blood Pressure 125/79 06/06/18 19:21 O2 Sat by Pulse Oximetry (%) 97 06/06/18 19:21 Constitutional: Yes: Well Nourished, No Distress, Calm Eyes: Yes: WNL, Conjunctiva Clear, EOM Intact, PERRL HENT: Yes: Atraumatic, Normocephalic, Other (dry mucousa) Neck: Yes: WNL, Supple, Trachea Midline Cardiovascular: Yes: WNL, Regular Rate and Rhythm, S1, S2 Respiratory: Yes: WNL, Regular, CTA Bilaterally Gastrointestinal: Yes: WNL, Normal Bowel Sounds, Soft, Abdomen, Obese Renal/: Yes: WNL Breast(s): Yes: WNL Musculoskeletal: Yes: WNL Peripheral Pulses WNL: Yes Neurological: Yes: Alert, Oriented, Cran Nerves II-XII Intact ...Motor Strength: WNL Psychiatric: Yes: WNL, Alert, Oriented Labs: CBC, BMP 06/06/18 22:00 06/07/18 02:52 Laboratory Results - last 24 hr 06/06/18 06/06/18 06/06/18 20:25 22:00 22:00 WBC 31.6 H* RBC 5.23 H Hgb 14.5 Hct 43.7 D MCV 83.5 MCH 27.7 MCHC 33.2 RDW 18.6 H Plt Count 360 MPV 8.7 Absolute Neuts (auto) 26.8 H Neutrophils % 84.8 H D Neutrophils % (Manual) 88.0 H Band Neutrophils % 5.0 Lymphocytes % 8.3 D Lymphocytes % (Manual) 3.0 L D Monocytes % 6.2 Monocytes % (Manual) 2 L Eosinophils % 0.2 Basophils % 0.5 Nucleated RBC % 2 H Platelet Estimate Adequate Platelet Comment No clumping noted PT with INR 12.50 INR 1.06 PTT (Actin FS) 40.0 H Sodium Cancelled Potassium Cancelled Chloride Cancelled Carbon Dioxide Cancelled Anion Gap Cancelled BUN Cancelled Creatinine Cancelled Creat Clearance w eGFR Cancelled Random Glucose Cancelled Calcium Cancelled Magnesium Cancelled Total Bilirubin Cancelled AST Cancelled ALT Cancelled Alkaline Phosphatase Cancelled Creatine Kinase Cancelled Troponin I Cancelled B-Natriuretic Peptide Cancelled Total Protein Cancelled Albumin Cancelled 06/07/18 06/07/18 02:52 02:52 WBC RBC Hgb Hct MCV MCH MCHC RDW Plt Count MPV Absolute Neuts (auto) Neutrophils % Neutrophils % (Manual) Band Neutrophils % Lymphocytes % Lymphocytes % (Manual) Monocytes % Monocytes % (Manual) Eosinophils % Basophils % Nucleated RBC % Platelet Estimate Platelet Comment PT with INR INR PTT (Actin FS) Sodium 128 L 129 L Potassium 4.5 4.4 Chloride 91 L 92 L Carbon Dioxide 28 28 Anion Gap 9 9 BUN 44 H 44 H Creatinine 1.7 H 1.8 H Creat Clearance w eGFR 29.38 27.50 Random Glucose 436 H* 435 H* Calcium 9.8 9.6 Magnesium Total Bilirubin 1.0 1.0 AST 6 L 7 L ALT 14 15 Alkaline Phosphatase 137 H 137 H Creatine Kinase 51 Troponin I < 0.02 B-Natriuretic Peptide 107.9 Total Protein 8.4 H 8.4 H Albumin 3.6 3.6 Imaging - Results Chest X-ray: Image Reviewed Cat Scan: Image Reviewed Problem List - Problems (1) Hyponatremia Code(s): E87.1 - HYPO-OSMOLALITY AND HYPONATREMIA (2) Hyperglycemia Code(s): R73.9 - HYPERGLYCEMIA, UNSPECIFIED (3) GUCCI (acute kidney injury) Code(s): N17.9 - ACUTE KIDNEY FAILURE, UNSPECIFIED (4) Leukocytosis Code(s): D72.829 - ELEVATED WHITE BLOOD CELL COUNT, UNSPECIFIED (5) COPD (chronic obstructive pulmonary disease) with chronic bronchitis Code(s): J44.9 - CHRONIC OBSTRUCTIVE PULMONARY DISEASE, UNSPECIFIED (6) Pulmonary embolism during treatment with long-term anticoagulation therapy Code(s): I26.99 - OTHER PULMONARY EMBOLISM WITHOUT ACUTE COR PULMONALE; Z79.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 Admitted to Telemetry for GUCCI, Acute Hyponatremia, Hyperglycemia secondary to HHS for further evaluation of their emergent condition. Plan: Will admit Cardiac monitoring Serial BMPs BGMs Q1H until Glucose < 200 then Q4H Appreciate Nephrology Consult for GUCCI, Hyponatremia Appreciate Endocrinology Consult for HHS Consider Cardiology consult if Hyponatremia does not improve with IVF Head CT image reviewed Chest Xray image reviewed Leukocytosis possibly due to recent steroid use vs infection vs malignancy Blood Cultures-pending Urine Culture-pending HgbA1C in am CBC in am Urine Osmo, Serum Osmo, Urine Na Continue Eliquis Continue COPD meds O2 Fall Precautions Seizure Precautions FEN- 0.45%NS@60ml/hr, Replete lytes prn, NPO DVT ppx- OOB, SCDs, Continue Eliquis Dispo: Requires Inpatient Care Visit type - Emergency Visit Emergency Visit: Yes ED Registration Date: 06/06/18 Care time: The patient presented to the Emergency Department on the above date and was hospitalized for further evaluation of their emergent condition. - New Patient This patient is new to me today: Yes Date on this admission: 06/07/18 - Critical Care Critical Care patient: No
--- NOTE | 2018-06-07 06:51 | PDOC ---
Documentation entered by Sandra To SCRIBE, acting as scribe for Milagros Pierre DO. Milagros Pierre DO: This documentation has been prepared by the Yousuf man Daisy, SCRIBE, under my direction and personally reviewed by me in its entirety. I confirm that the documentation accurately reflects all work , treatment, procedures, and medical decision making performed by me. Attending Attestation - Resident Resident Name: GonzaloSamina - ED Attending Attestation I have performed the following: I have examined & evaluated the patient, The case was reviewed & discussed with the resident, I agree w/resident's findings & plan - HPI HPI: 06/06/18 21:11 The patient is a 73 YOF with a PMH of COPD not on home O2, PE, DVT, on eliquis, and sickle cell disease who presents to the ER for evaluation of generalized fatigue and lightheadedness today. She states that today she was lying in bed when she accidentally lost control of her bowels and soiled herself. Patient was able to clean herself shortly after. Patient was recently discharged on for COPD exacerbation and reports having these symptoms since. Allergies: cipro, codeine levofloxacin Social Hx: Denies toxic habits. Surgeries: None reported. PCP: Dr. Javed Wilkinson - Physicial Exam PE: 06/06/18 21:17 Agree with resident's exam. - Critical Care Time Total Critical Care Time: 60 Critical Care Statement: The care of this patient involved high complexity decision making to prevent further life threatening deterioration of the patient 's condition and/or to evaluate & treat vital organ system(s) failure or risk of failure. - Medical Decision Making 06/07/18 06:48 73-year-old female with lightheadedness status post discharge from the hospital with history of DVT/PE currently on Eliquis Patient has been feeling weaker than usual Labs consistent with acute kidney injury as well as hypernatremia and elevated blood sugar despite the patient not having history of diabetes IV fluids normal saline to be initiated Multiple attempts are made at peripheral IV access which were unsuccessful Patient admitted to [facility] Plan for central line placement prior to transfer to floor
[2018-06-07] MEDS ORDERED: ALBUTEROL SO4 0.083% IH SOL 2.5 MG/3 ML VIAL.NEB. NEB PRN (07:01)
[2018-06-07] MEDS ORDERED: MIDAZOLAM HCL 2 MG/2 ML SINGLE DOSE VIAL IVPUSH ONE (07:24)
[2018-06-07] MEDS ORDERED: MIDAZOLAM HCL 2 MG/2 ML SINGLE DOSE VIAL ONE (07:26)
--- NOTE | 2018-06-07 09:42 | PN ---
Progress Note, Physician - Current Medication List Current Medications: Active Medications Albuterol Sulfate (Ventolin 0.083% Nebulizer Soln -) 1 amp NEB Q4H PRN PRN Reason: SHORT OF BREATH/WHEEZING Albuterol/Ipratropium (Duoneb -) 1 amp NEB RQID SORAYA Apixaban (Eliquis -) 5 mg PO BID SORAYA Budesonide/Formoterol Fumarate (Symbicort 160/4.5mcg -) 1 puff IH BID SORAYA Folic Acid (Folic Acid -) 1 mg PO DAILY SORAYA - Objective Vital Signs: Vital Signs Temperature 99.3 F 06/07/18 06:06 Pulse Rate 118 H 06/07/18 07:31 Respiratory Rate 17 06/07/18 06:06 Blood Pressure 117/58 L 06/07/18 07:31 O2 Sat by Pulse Oximetry (%) 95 06/07/18 06:06 Cardiovascular: Yes: S1, S2 Respiratory: Yes: Diminished, On Nasal O2 Gastrointestinal: Yes: Normal Bowel Sounds, Soft. No: Tenderness Labs: CBC, BMP 06/06/18 22:00 06/07/18 02:52 INR, PTT INR 1.06 (0.83-1.09) 06/06/18 20:25 Problem List - Problems (1) GUCCI (acute kidney injury) Assessment/Plan: Serial BMPs BGMs Q1H until Glucose < 200 then Q4H Nephrology Consult for GUCCI, Hyponatremia Urine Osmo, Serum Osmo, Urine Na 0.45%NS@60ml/hr, Replete lytes prn, NPO Code(s): N17.9 - ACUTE KIDNEY FAILURE, UNSPECIFIED (2) Sepsis Assessment/Plan: CULTURES IV ABX ID CONSULT FOLLOW LABS Code(s): A41.9 - SEPSIS, UNSPECIFIED ORGANISM (3) HTN (hypertension) Code(s): I10 - ESSENTIAL (PRIMARY) HYPERTENSION Qualifiers: Hypertension type: essential hypertension Qualified Code(s): I10 - Essential (primary) hypertension (4) Lethargy Assessment/Plan: Cardiac monitoring Cardiology consult Head CT image NAD Chest Xray image NAD Code(s): R53.83 - OTHER FATIGUE (5) Diabetes Assessment/Plan: Endocrinology Consult for HHS SS HgbA1C in am Code(s): E11.9 - TYPE 2 DIABETES MELLITUS WITHOUT COMPLICATIONS
[2018-06-07 09:56] LABS: BASO % 0.2 % (0-2.0); EOS % 0.2 % (0-4.5); HEMATOCRIT 43.2 % (32.4-45.2); HEMOGLOBIN 14.6 GM/dL (10.7-15.3); LYMPH % 13.7 % (8-40); MCH 27.8 pg (25.7-33.7); MCHC 33.8 g/dl (32.0-36.0); MEAN CELL VOLUME 82.4 fl (80-96); MEAN PLT VOLUME 8.2 fl (7.5-11.1); NEUT % 81.9 % (42.8-82.8); PLATELET COUNT 306 K/MM3 (134-434); RBC 5.25 M/mm3 (3.60-5.2); RDW 18.8 % (11.6-15.6); WHITE BLOOD COUNT 29.2 K/mm3 (4.0-10.0)
[2018-06-07] MEDS ORDERED: PIPERACILLIN/TAZOB 3.375 GM 3.375 GM in DEXTROSE 5%-WATER - 50 ML IVPB SCH (10:00)
[2018-06-07] MEDS: ALBUTEROL SO4 2.5/IPRATROPIUM 0.5 INH SOL 3 ML VIAL.NEB. NEB SCH ×3 (10:04→21:05)
[2018-06-07] MEDS ORDERED: MIDAZOLAM HCL 2 MG/2 ML SINGLE DOSE VIAL IM ONE (10:05)
[2018-06-07] MEDS: BUDESONIDE/FORMETEROL FUMARATE 160/4.5 mcg INHALER IH SCH ×2 (10:05→23:40)
[2018-06-07] MEDS: FOLIC ACID 1 MG TABLET (FP) PO SCH (10:06)
[2018-06-07] MEDS: APIXABAN 5 MG TABLET PO SCH ×2 (10:06→21:53)
[2018-06-07 10:31] LABS: ANION GAP 9 MMOL/L (8-16); BLOOD UREA NITROGEN 48 mg/dL (7-18); CALCIUM 9.5 mg/dL (8.5-10.1); CHLORIDE 93 mmol/L (98-107); CO2 30 mmol/L (21-32); CREATININE 1.9 mg/dL (0.55-1.3); POTASSIUM 4.9 mmol/L (3.5-5.1); SODIUM 132 mmol/L (136-145)
--- NOTE | 2018-06-07 10:32 | EKG ---
Test Reason : Blood Pressure : / mmHG Vent. Rate : 102 BPM Atrial Rate : 102 BPM P-R Int : 134 ms QRS Dur : 072 ms QT Int : 310 ms P-R-T Axes : 068 -11 051 degrees QTc Int : 404 ms SINUS TACHYCARDIA POSSIBLE LEFT ATRIAL ENLARGEMENT BORDERLINE ECG WHEN COMPARED WITH ECG OF 29-MAY-2018 12:54, NO SIGNIFICANT CHANGE WAS FOUND Confirmed by YUE BETANCOURT MD ([id number]) on 06/07/2018 10:32:06 AM Referred By: Confirmed By:YUE BETANCOURT MD
[2018-06-07 10:34] LABS: GLUCOSE,RANDOM 387 mg/dL (74-106)
[2018-06-07] MEDS ORDERED: PIPERACILLIN/TAZOB 3.375 GM 3.375 GM/50 ML BAG IVPB ONE (10:46)
[2018-06-07 11:23] LABS: ANISOCYTOSIS 0; MACROCYTOSIS 0; PLATELET ESTIMATE NORMAL; TARGET CELLS 2+
[2018-06-07 11:47] LABS: EPI CELLS 1.6 /HPF (0-5/HPF); URINE APPEARANCE CLOUDY; URINE BILIRUBIN 1+ (NEGATIVE); URINE CASTS 28 /lpf (0-8); URINE COLOR DK YELLOW; URINE GLUCOSE (UA) 1+ (NEGATIVE); URINE KETONE TRACE (NEGATIVE); URINE LEUK ESTERASE TRACE (NEGATIVE); URINE NITRITE NEGATIVE (NEGATIVE); URINE PROTEIN 1+ (NEGATIVE); URINE RBC 2 /hpf (0-4); URINE WBC 1 /hpf (0-5)
[2018-06-07] MEDS: INSULIN SLIDING SCALE (NOVOLOG) 1 VIAL SQ SCH ×4 (12:25→21:58)
[2018-06-07] MEDS ORDERED: INSULIN (NOVOLOG) ASPART 100 UNITS/ML 10ML VIAL ONE ×2 (12:27→15:03)
[2018-06-07] MEDS ORDERED: DOCUSATE SODIUM 100 MG CAPSULE (FP) PO PRN (17:13)
[2018-06-07] MEDS ORDERED: oxyCODONE HCL 5 MG TABLET PO PRN (17:13)
--- NOTE | 2018-06-07 17:14 | PN ---
Progress Note (short form) - Note Progress Note: ID consult dictated imp.reccd leukocytosis-most likely steroids hyperglycemia secondary to steroids GUCCI diarrhea- r/o cdiff less likely sepsis thrush sickle cell anemia-no pain zosyn for now iv hydration, control blood sugar f/u cultures stool cdiff nystatin Problem List - Problems (1) Leukocytosis Code(s): D72.829 - ELEVATED WHITE BLOOD CELL COUNT, UNSPECIFIED (2) Thrush Code(s): B37.0 - CANDIDAL STOMATITIS (3) GUCCI (acute kidney injury) Code(s): N17.9 - ACUTE KIDNEY FAILURE, UNSPECIFIED (4) Hyperglycemia Code(s): R73.9 - HYPERGLYCEMIA, UNSPECIFIED (5) Sickle cell anemia Code(s): D57.1 - SICKLE-CELL DISEASE WITHOUT CRISIS Qualifiers: Sickle-cell associated disorders: without crisis Qualified Code(s): D57.1 - Sickle-cell disease without crisis
[2018-06-07] MEDS: NYSTATIN 500,000 UNITS/5 ML SUSPENSION PO SCH (17:33)
[2018-06-07] MEDS: ATENOLOL 25 MG TABLET (FP) PO SCH (17:33)
--- NOTE | 2018-06-07 17:39 | CONSULT ---
Consultation: REQUESTING PROVIDER: CONSULT REQUEST: We have been asked to medically evaluate this patient for heme/ onc. 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 Her and kids at home felt she needed to go to the hospital and was brought to the ER. She was admitted for HHS and is currently feeling better. She reports urinary frequency, light-headedness, and fatigue. She denies CP, SOB , cough, sick contacts, abd pain, LE edema, weight loss, change in appetite. She was recently discharged on 05/31 (where she was treated for COPD exacerbation ) with prednisone. Redd consulted for leukocytosis. She follows at [facility] monthly. 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 FH: Father: Stomach ca. Mother: Stroke REVIEW OF SYSTEMS: CONSTITUTIONAL: +generalized weakness Absent: fever, chills CARDIOVASCULAR: +light-headedness Absent: chest pain, peripheral edema RESPIRATORY: Absent: cough, shortness of breath GASTROINTESTINAL: Absent: abdominal pain, nausea, vomiting, diarrhea, constipation, hematochezia GENITOURINARY: +frequency Absent: dysuria, hematuria NEUROLOGIC: +dizziness PHYSICAL EXAMINATION Vital Signs - 24 hr 06/06/18 06/07/18 06/07/18 19:21 06:06 07:15 Temperature 96.8 F L 99.3 F Pulse Rate 82 Pulse Rate [ 112 H Right Radial] Respiratory 18 17 Rate Blood Pressure 125/79 Blood Pressure 155/71 [Left Arm] O2 Sat by Pulse 97 95 98 Oximetry (%) 06/07/18 06/07/18 06/07/18 07:31 11:10 15:07 Temperature 98.3 F 98.3 F Pulse Rate Pulse Rate [ 118 H 84 112 H Right Radial] Respiratory 16 18 Rate Blood Pressure Blood Pressure 117/58 L 140/80 118/66 [Left Arm] O2 Sat by Pulse 98 98 Oximetry (%) GENERAL: Awake, alert, and fully oriented, in no acute distress. HEAD: Normal with no signs of trauma. EYES: extraocular movements intact, sclera anicteric, conjunctiva clear. EARS, NOSE, THROAT: Ears normal, nares patent NECK: Normal range of motion, supple without lymphadenopathy, JVD, or masses. LUNGS: Breath sounds equal, clear to auscultation bilaterally. HEART: Tachycardic, normal S1 and S2 ABDOMEN: Soft, nontender, normoactive bowel sounds LOWER EXTREMITIES: warm, well-perfused. No peripheral edema. NEUROLOGICAL: Cranial nerves II-XII grossly intact. Normal speech. Gait not observed. PSYCHIATRIC: Cooperative. Good eye contact. Appropriate mood and affect. SKIN: Warm, dry CBC, BMP 06/07/18 09:30 06/07/18 09:30 Active Medications Generic Name Dose Route Start Last Admin Trade Name Freq PRN Reason Stop Dose Admin Albuterol Sulfate 1 amp 06/07/18 07:01 Ventolin 0.083% Nebulizer Soln - NEB Q4H PRN SHORT OF BREATH/WHEEZING Albuterol/Ipratropium 1 amp 06/07/18 08:00 06/07/18 12:05 Duoneb - NEB 1 amp RQID SORAYA Administration Albuterol/Ipratropium 1 amp 06/07/18 17:13 Duoneb - NEB Q6H PRN SHORTNESS OF BREATH Apixaban 5 mg 06/07/18 10:00 06/07/18 10:06 Eliquis - PO 5 mg BID SORAYA Administration Atenolol 25 mg 06/07/18 17:15 Tenormin - PO DAILY [facility] Budesonide/Formoterol Fumarate 1 puff 06/07/18 10:00 06/07/18 10:05 Symbicort 160/4.5mcg - IH Not Given BID SORAYA Docusate Sodium 100 mg 06/07/18 17:13 Colace - PO BID PRN CONSTIPATION Folic Acid 1 mg 06/07/18 10:00 06/07/18 10:06 Folic Acid - PO 1 mg DAILY SORAYA Administration Gabapentin 300 mg 06/07/18 22:00 Neurontin - PO BID SORAYA Hydrochlorothiazide 12.5 mg 06/08/18 10:00 Hctz - PO DAILY [facility] Piperacillin Sod/Tazobactam 50 mls @ 100 mls/hr 06/08/18 10:00 Sod 3.375 gm/ Dextrose IVPB Q8H-IV SORAYA Insulin Aspart 1 vial 06/07/18 12:00 06/07/18 15:03 Novolog Vial Sliding Scale - SQ 6 unit Q4HWA [facility] Administration Protocol Losartan Potassium 50 mg 06/07/18 17:15 Cozaar - PO DAILY SORAYA Montelukast Sodium 10 mg 06/07/18 22:00 Singulair - PO HS SORAYA Nystatin 500,000 units 06/07/18 18:00 Nystatin Oral Suspension - PO Q6HPO SORAYA Oxycodone HCl 15 mg 06/07/18 17:13 Roxicodone - PO Q6H PRN PAIN LEVEL 7 - 10 ASSESSMENT/PLAN: 73 y/o F w/PMH of COPD (on home O2 PRN), HTN, 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 Her and kids at home felt she needed to go to the hospital and was brought to the ER. She was admitted for HHS. Heme consulted for leukocytosis. Leukocytosis COPD HHS Sickle Cell -Pt has had increasing WBC count gradually. Her baseline is approximately 15 and is being followed at [facility]. Currently WBC at 29. Was recently on prednisone until from recent discharge from hospital. -Baseline WBC from sickle cell is approx 15 and will monitor WBC at this time. Treat empirically for infection at this time and monitor WBC count. -Will continue to monitor -C/w folic acid -Abx as per ID -Consider restarting steroid therapy/taper as patient had been on steroids since last admission on 05/21. Dispo: We will continue to follow the patient. Thank you for this consultative opportunity. Visit type - Emergency Visit Emergency Visit: Yes ED Registration Date: 06/07/18 Care time: The patient presented to the Emergency Department on the above date and was hospitalized for further evaluation of their emergent condition. - New Patient This patient is new to me today: Yes Date on this admission: 06/07/18 - Critical Care Critical Care patient: No
[2018-06-07] MEDS ORDERED: PIPERACILLIN/TAZOBACTAM 3.375 GM VIAL IVPB ONE (18:06)
[2018-06-07] MEDS ORDERED: DEXTROSE 5%-WATER - 50 ML IVPB ONE (18:06)
[2018-06-07] MEDS: LOSARTAN POTASSIUM 50 MG TABLET (FP) PO SCH (18:46)
[2018-06-07] MEDS: PIPERACILLIN/TAZOB 3.375 GM 3.375 GM in DEXTROSE 5%-WATER - 50 ML IVPB SCH (18:46)
--- NOTE | 2018-06-07 20:04 | PN ---
Teaching Attending Note Name of Resident: Sonu Khan ATTENDING PHYSICIAN STATEMENT I saw and evaluated the patient. I reviewed the resident's note and discussed the case with the resident. I agree with the resident's findings and plan as documented. SUBJECTIVE: Patient seen and examined History of SC disease. Review of past labsreveal baseline WBC- 12,000-11066/mm3. Recently hospitilized at [facility] for pneumonia and had been place on prednisone. Was taking 20 mg BID for approximately past 2 1/2 weeks. Presents now with increase in WBC . Last Vital Signs Temp Pulse Resp BP Pulse Ox 98.2 F 114 H 20 145/75 98 06/07/18 17:35 06/07/18 17:35 06/07/18 17:35 06/07/18 17:35 06/07/18 17:35 HEENT: JOHN, EOM Intact Oropharynx: thrush, No mucositis, dentures Neck: Supple Nodes: Without adenopathy Breasts: Without masses Cor: RSR, No murmurs, No gallops Lungs: bronchial breath sounds Abd: Soft, Normal bowel sounds, No organomegaly Ext:No significant edema Skin: No rashes, Integument intact CBC, BMP 06/07/18 09:30 06/07/18 09:30 Current Medications Generic Name Dose Route Start Last Admin Trade Name Freq PRN Reason Stop Dose Admin Albuterol Sulfate 1 amp 06/07/18 07:01 Ventolin 0.083% Nebulizer Soln - NEB Q4H PRN SHORT OF BREATH/WHEEZING Albuterol/Ipratropium 1 amp 06/07/18 08:00 06/07/18 12:05 Duoneb - NEB 1 amp RQID SORAYA Administration Albuterol/Ipratropium 1 amp 06/07/18 17:13 Duoneb - NEB Q6H PRN SHORTNESS OF BREATH Apixaban 5 mg 06/07/18 10:00 06/07/18 10:06 Eliquis - PO 5 mg BID SORAYA Administration Atenolol 25 mg 06/07/18 17:15 06/07/18 17:33 Tenormin - PO 25 mg DAILY SORAYA Administration Budesonide/Formoterol Fumarate 1 puff 06/07/18 10:00 06/07/18 10:05 Symbicort 160/4.5mcg - IH Not Given BID [facility] Docusate Sodium 100 mg 06/07/18 17:13 Colace - PO BID PRN CONSTIPATION Folic Acid 1 mg 06/07/18 10:00 06/07/18 10:06 Folic Acid - PO 1 mg DAILY SORAYA Administration Gabapentin 300 mg 06/07/18 22:00 Neurontin - PO BID SORAYA Hydrochlorothiazide 12.5 mg 06/08/18 10:00 Hctz - PO DAILY [facility] Piperacillin Sod/Tazobactam 50 mls @ 100 mls/hr 06/07/18 18:00 06/07/18 18:46 Sod 3.375 gm/ Dextrose IVPB 100 mls/hr Q8H-IV SORAYA Administration Insulin Aspart 1 vial 06/07/18 12:00 06/07/18 18:04 Novolog Vial Sliding Scale - SQ Not Given Q4HWA [facility] Protocol Losartan Potassium 50 mg 06/07/18 17:15 06/07/18 18:46 Cozaar - PO 50 mg DAILY SORAYA Administration Montelukast Sodium 10 mg 06/07/18 22:00 Singulair - PO HS SORAYA Nystatin 500,000 units 06/07/18 18:00 06/07/18 17:33 Nystatin Oral Suspension - PO 500,000 units Q6HPO SORAYA Administration Oxycodone HCl 15 mg 06/07/18 17:13 Roxicodone - PO Q6H PRN PAIN LEVEL 7 - 10 Impression: SC disease Leucocytosis probably related to long course of high dose steroids superimposed on high baseline WBC count in sckle cell patients. Need to exclude occult infection and agree with empiric antibiotics for now after vasquez culturing. 2 1/2 weeks of prednisone - may need to consider adrenal suppression and treatment for same. Also has florid thrush and difficulty with swallowing to follow. OBJECTIVE: ASSESSMENT AND PLAN:
--- NOTE | 2018-06-07 20:21 | CONS ---
DATE OF CONSULTATION: DATE OF DICTATION: 06/07/2018 REQUESTING PHYSICIAN: Pedro Mathur M.D. CONSULTING PHYSICIAN: Idania Jimenez M.D. HISTORY OF PRESENT ILLNESS: This is a 73-year-old woman with a history of sickle cell disease. She was recently in the hospital from May 21 to May 31. She was discharged on prednisone and Ceftin which she was still taking at the time of discharge. At the time of readmission to the hospital, she was taking 20 of prednisone twice a day, and she was still on the Ceftin. She notes that on June 06, her family called the ambulance and brought her to the emergency room because she was becoming more lightheaded, and she had several episodes of moving her bowels and soiled herself. She denied any fevers or chills. She denied any shortness of breath or cough. She is allergic to FLUOROQUINOLONES and PENICILLIN as well as CODEINE and CIPROFLOXACIN, SULFA, and TETANUS IMMUNOGLOBULIN. She has no other complaints. Currently she is awake and alert. She notes that her mouth is dry and she has some thrush. MEDICATION: Her medications as an outpatient included folic acid, Colace, Singulair, Symbicort, vitamin D, Combivent, albuterol, gabapentin, Cozaar. She was on the Ceftin and the prednisone. Oxycodone, albuterol, apixaban, Cymbalta, folic acid. PAST MEDICAL HISTORY: Notable for sickle cell disease, bronchitis. She has a history of bilateral hip repair. She has had a cholecystectomy in the past. REVIEW OF SYSTEMS: She currently is feeling much better. She reports even after admission to the emergency room, she continued to have frequent bowel movements. It is unclear how loose her bowel movements are. She reports normally she moves her bowels every other day. She is followed at the [facility] sickle cell clinic, and her family history is notable for stomach cancer in her father, and a stroke in her mother. Review of systems is notable for the generalized weakness. She has no fevers or chills. She has no cough, abdominal pain, or chest pain. She denies any dysuria. PHYSICAL EXAMINATION: GENERAL: She is awake and alert. VITAL SIGNS: Temperature is 98.2, pulse is 114, blood pressure 145/75, respiratory rate 20. She is saturating 98% on room air. HEENT: Normocephalic. Eyes are anicteric. NECK: Supple. She has thrush. LUNGS: Clear to auscultation. HEART: Regular rate and rhythm. ABDOMEN: Soft, nontender. EXTREMITIES: Without edema. LABORATORY: Notable for white count on admission of 31.6, this morning 29.2. Her hemoglobin is 14.6, platelets are 306, INR is 1. BUN and creatinine are 48 and 1.9, and glucose is 387, it was 436 on admission. Urinalysis has 1 white cell. Urine and blood cultures are pending. Chest x-ray is negative. At the time of discharge, her white count was 22,000, and BUN and creatinine were 15 and 1. IMPRESSION: In summary, this is a 73-year-old woman admitted with lightheadedness and weakness, found to have leukocytosis and acute kidney injury, which I feel is probably secondary to dehydration from her hyperglycemia. She also has thrush. Given that we cannot rule out sepsis, I would continue her Zosyn, given her frequent bowel movements which is unusual for her and to the point that she soils herself, I would obtain stool C. difficile, which has been ordered. I would treat her thrush with Nystatin. If cultures are negative, would stop her Zosyn. Most likely the steroids have created the leukocytosis, and I suspect her dehydration contributed to her lightheadedness all on the basis of hyperglycemia. Lastly, sickle cell disease which appeared to be quiescent. IDANIA JIMENEZ M.D. [id number]
[2018-06-07] MEDS: GABAPENTIN 300 MG CAPSULE (FP) PO SCH (21:53)
[2018-06-07] MEDS: MONTELUKAST NA 10 MG TABLET PO SCH (21:53)
--- NOTE | 2018-06-08 00:31 | CONSULT ---
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 recent admission COPD Exacerbation 05/21-05/31. Who present with Lightheadedness, weakness, and diarrhea . she has felt weak and frequent urination,thirst,and blurred vision, no history of dm,found to have blood sugars over 400mg/dl,she denies vomiting or fever chills, - Past Medical History Cardio/Vascular: Yes: Deep Vein Thrombosis, HTN, Other (PE) Pulmonary: Yes: COPD, Pulmonary Embolus ...: No Psych: Yes: Addictions, Other (Pain meds- methadone, oxycodone ) Musculoskeletal: Yes: Chronic low back pain - Past Surgical History Past Surgical History: Yes: Cholecystectomy, Hysterectomy, Joint Replacement ( bilateral hip replacements) - Alcohol/Substance Use Hx Alcohol Use: No History of Substance Use: reports: Prescription - Smoking History Smoking history: Unknown if ever smoked Have you smoked in the past 12 months: No Aproximately how many cigarettes per day: 0 - Social History Usual Living Arrangement: With Spouse ADL: Independent History of Recent Travel: No Home Medications - Allergies Allergies/Adverse Reactions: Allergies Allergy/AdvReac Type Severity Reaction Status Date / Time ciprofloxacin [From Cipro] Allergy Itching Verified 06/06/18 20:43 ciprofloxacin HCl Allergy Itching Verified 06/06/18 20:43 [From Cipro] codeine [Codeine] Allergy Verified 06/06/18 20:43 levofloxacin [From Levaquin] Allergy Itching Verified 06/06/18 20:43 Penicillins Allergy Itching Verified 06/06/18 20:43 Sulfa (Sulfonamide Allergy Verified 06/06/18 20:43 Antibiotics) tetanus immune globulin Allergy Verified 06/06/18 20:43 IV DYE Allergy Uncoded 06/06/18 20:43 - Home Medications Home Medications: Ambulatory Orders Folic Acid - 1 mg PO DAILY 02/11/13 Docusate Sodium [Colace -] 100 mg PO DAILY 04/06/15 Montelukast Na [Singulair -] 10 mg PO HS 04/06/15 Budesonide/Formeterol Fumarate [SYMBICORT 160/4.5mcg -] 1 inh PO BID 08/19/15 Cholecalciferol (Vitamin D3) [Vitamin D3 -] 1,000 unit PO DAILY 08/19/15 Ipratropium/Albuterol Sulfate [Combivent Respimat 20-100 Mcg] 1 inh IH Q4H PRN 08/19/15 Acetaminophen [Tylenol .Extra-Strength -] 1,000 mg PO Q8H PRN #0 tablet Albuterol Sulfate [Proair Hfa] 2 inh IH QID PRN 01/21/18 Gabapentin 300 mg PO HS 01/21/18 Losartan Potassium [Cozaar -] 50 mg PO DAILY 01/21/18 Cefuroxime Axetil [Ceftin -] 500 mg PO BID #10 tablet MDD 2 01/26/18 oxyCODONE HCL [Roxybond] 30 mg PO QID PRN 05/21/18 oxyCODONE SR [Oxycontin] 40 mg PO BID 05/21/18 Acetaminophen [Tylenol .Regular Strength -] 650 mg PO Q4H PRN tablet 05/26/18 Albuterol 0.083% Nebulizer Marichuy [Ventolin 0.083% Nebulizer Soln -] 1 amp NEB Q4H PRN amp 05/26/18 Albuterol 2.5/Ipratropium 0.5 [Duoneb -] 1 amp NEB RQID amp 05/26/18 Apixaban [Eliquis -] 5 mg PO BID tablet 05/26/18 Apixaban [Eliquis -] 5 mg PO BID #30 tablet MDD 2 05/26/18 Cefuroxime Axetil [Ceftin -] 500 mg PO BID #14 tablet MDD 2 05/26/18 Duloxetine HCl [Cymbalta -] 30 mg PO BID capsule. 05/26/18 Folic Acid - 1 mg PO DAILY tablet 05/26/18 Guaifenesin Dm [Robitussin Dm -] 10 ml PO Q4H PRN cup 05/26/18 predniSONE [Deltasone -] 10 mg PO DAILY #30 tablet 05/26/18 predniSONE [Deltasone -] See Taper PO DAILY #30 tablet 05/27/18 Atenolol [Tenormin -] 25 mg PO DAILY 06/07/18 Hydrochlorothiazide 12.5 mg PO BID 06/07/18 Family Disease History - Family Disease History Family Disease History: Diabetes: Mother (HTN, TIIDM, Stroke), Heart Disease: Mother, CA: Father (Lung CA), Other: Mother Review of Systems - Review of Systems Constitutional: reports: Lethargy, Weakness Eyes: reports: Blurred Vision HENT: reports: No Symptoms Neck: reports: No Symptoms Cardiovascular: reports: No Symptoms Respiratory: reports: Exercise Intolerance, SOB on Exertion Gastrointestinal: reports: Bloating Genitourinary: reports: No Symptoms Breasts: reports: No Symptoms Reported Musculoskeletal: reports: Extremity Pain, Muscle Cramps, Muscle Weakness Integumentary: reports: No Symptoms Neurological: reports: Numbness, Unsteady Gait, Weakness Physical Exam Vital Signs: Vital Signs Temperature 98.2 F 06/07/18 17:35 Pulse Rate 114 H 06/07/18 17:35 Respiratory Rate 20 06/07/18 17:35 Blood Pressure 145/75 06/07/18 17:35 O2 Sat by Pulse Oximetry (%) 98 06/07/18 17:35 Constitutional: Yes: Anxious Eyes: Yes: EOM Intact HENT: Yes: Normocephalic Neck: Yes: Trachea Midline Cardiovascular: Yes: Regular Rate and Rhythm Respiratory: Yes: CTA Bilaterally Gastrointestinal: Yes: Normal Bowel Sounds ...Rectal Exam: Yes: Deferred Renal/: Yes: WNL Breast(s): Yes: WNL Musculoskeletal: Yes: WNL Extremities: Yes: WNL Integumentary: Yes: WNL Neurological: Yes: Alert, Oriented Labs: CBC, BMP 06/07/18 09:30 06/07/18 09:30 Problem List - Problems (1) GUCCI (acute kidney injury) Code(s): N17.9 - ACUTE KIDNEY FAILURE, UNSPECIFIED (2) Diabetes Code(s): E11.9 - TYPE 2 DIABETES MELLITUS WITHOUT COMPLICATIONS (3) Hyperglycemia Code(s): R73.9 - HYPERGLYCEMIA, UNSPECIFIED (4) Lethargy Code(s): R53.83 - OTHER FATIGUE (5) Leukocytosis Code(s): D72.829 - ELEVATED WHITE BLOOD CELL COUNT, UNSPECIFIED (6) Thrush Code(s): B37.0 - CANDIDAL STOMATITIS (7) Asthma attack Code(s): J45.901 - UNSPECIFIED ASTHMA WITH (ACUTE) EXACERBATION Assessment/Plan Current Active Problems GUCCI (acute kidney injury) (Acute) Diabetes (Acute) Hyperglycemia (Acute) Lethargy (Acute) Leukocytosis (Acute) Thrush (Acute) Abnormal Lab Results 06/07/18 06/07/18 06/07/18 02:52 02:52 09:30 WBC 29.2 H RBC 5.25 H RDW 18.8 H Absolute Neuts (auto) 23.9 H Neutrophils % (Manual) 87.9 H Monocytes % (Manual) 1 L Blast Cells % (Manual) 1 H D Nucleated RBC % 6 H Sodium 128 L 129 L Chloride 91 L 92 L BUN 44 H 44 H Creatinine 1.7 H 1.8 H Random Glucose 436 H* 435 H* Serum Osmolality AST 6 L 7 L Alkaline Phosphatase 137 H 137 H Total Protein 8.4 H 8.4 H Urine Protein Urine Glucose (UA) Urine Ketones Urine Bilirubin Ur Random Sodium 06/07/18 06/07/18 06/07/18 09:30 09:30 09:40 WBC RBC RDW Absolute Neuts (auto) Neutrophils % (Manual) Monocytes % (Manual) Blast Cells % (Manual) Nucleated RBC % Sodium 132 L Chloride 93 L BUN 48 H Creatinine 1.9 H Random Glucose 387 H* Serum Osmolality 313 H AST Alkaline Phosphatase Total Protein Urine Protein Urine Glucose (UA) Urine Ketones Urine Bilirubin Ur Random Sodium < 18 L 06/07/18 10:00 WBC RBC RDW Absolute Neuts (auto) Neutrophils % (Manual) Monocytes % (Manual) Blast Cells % (Manual) Nucleated RBC % Sodium Chloride BUN Creatinine Random Glucose Serum Osmolality AST Alkaline Phosphatase Total Protein Urine Protein 1+ H Urine Glucose (UA) 1+ H Urine Ketones Trace H Urine Bilirubin 1+ H Ur Random Sodium Laboratory Results - last 24 hr 06/07/18 06/07/18 06/07/18 02:52 02:52 06:46 WBC RBC Hgb Hct MCV MCH MCHC RDW Plt Count MPV Absolute Neuts (auto) Neutrophils % Neutrophils % (Manual) Band Neutrophils % Lymphocytes % Lymphocytes % (Manual) Monocytes % Monocytes % (Manual) Eosinophils % Eosinophils % (Manual) Basophils % Basophils % (Manual) Myelocytes % (Man) Promyelocytes % (Man) Blast Cells % (Manual) Nucleated RBC % Metamyelocytes Hypochromia Platelet Estimate Polychromasia Poikilocytosis Anisocytosis Microcytosis Macrocytosis Target Cells Sodium 128 L 129 L Potassium 4.5 4.4 Chloride 91 L 92 L Carbon Dioxide 28 28 Anion Gap 9 9 BUN 44 H 44 H Creatinine 1.7 H 1.8 H Creat Clearance w eGFR 29.38 27.50 POC Glucometer 414 Random Glucose 436 H* 435 H* Serum Osmolality Calcium 9.8 9.6 Total Bilirubin 1.0 1.0 AST 6 L 7 L ALT 14 15 Alkaline Phosphatase 137 H 137 H Creatine Kinase 51 Troponin I < 0.02 B-Natriuretic Peptide 107.9 Total Protein 8.4 H 8.4 H Albumin 3.6 3.6 Urine Color Urine Appearance Urine pH Ur Specific Festus Urine Protein Urine Glucose (UA) Urine Ketones Urine Blood Urine Nitrite Urine Bilirubin Urine Urobilinogen Ur Leukocyte Esterase Urine WBC (Auto) Urine RBC (Auto) Urine Casts (Auto) U Pathogenic Cast Auto U Epithel Cells (Auto) Urine Bacteria (Auto) Urine Osmolality Ur Random Sodium 06/07/18 06/07/18 06/07/18 09:30 09:30 09:30 WBC 29.2 H RBC 5.25 H Hgb 14.6 Hct 43.2 MCV 82.4 MCH 27.8 MCHC 33.8 RDW 18.8 H Plt Count 306 MPV 8.2 Absolute Neuts (auto) 23.9 H Neutrophils % 81.9 Neutrophils % (Manual) 87.9 H Band Neutrophils % 0.0 Lymphocytes % 13.7 D Lymphocytes % (Manual) 8.1 D Monocytes % 4.0 Monocytes % (Manual) 1 L Eosinophils % 0.2 Eosinophils % (Manual) 0.0 Basophils % 0.2 Basophils % (Manual) 0.0 Myelocytes % (Man) 0 D Promyelocytes % (Man) 0 Blast Cells % (Manual) 1 H D Nucleated RBC % 6 H Metamyelocytes 0 Hypochromia 0 Platelet Estimate Normal Polychromasia 0 Poikilocytosis 2+ Anisocytosis 0 Microcytosis 0 Macrocytosis 0 Target Cells 2+ Sodium 132 L Potassium 4.9 Chloride 93 L Carbon Dioxide 30 Anion Gap 9 BUN 48 H Creatinine 1.9 H Creat Clearance w eGFR 25.84 POC Glucometer Random Glucose 387 H* Serum Osmolality 313 H Calcium 9.5 Total Bilirubin AST ALT Alkaline Phosphatase Creatine Kinase Troponin I B-Natriuretic Peptide Total Protein Albumin Urine Color Urine Appearance Urine pH Ur Specific Festus Urine Protein Urine Glucose (UA) Urine Ketones Urine Blood Urine Nitrite Urine Bilirubin Urine Urobilinogen Ur Leukocyte Esterase Urine WBC (Auto) Urine RBC (Auto) Urine Casts (Auto) U Pathogenic Cast Auto U Epithel Cells (Auto) Urine Bacteria (Auto) Urine Osmolality Ur Random Sodium 06/07/18 06/07/18 06/07/18 09:40 10:00 10:40 WBC RBC Hgb Hct MCV MCH MCHC RDW Plt Count MPV Absolute Neuts (auto) Neutrophils % Neutrophils % (Manual) Band Neutrophils % Lymphocytes % Lymphocytes % (Manual) Monocytes % Monocytes % (Manual) Eosinophils % Eosinophils % (Manual) Basophils % Basophils % (Manual) Myelocytes % (Man) Promyelocytes % (Man) Blast Cells % (Manual) Nucleated RBC % Metamyelocytes Hypochromia Platelet Estimate Polychromasia Poikilocytosis Anisocytosis Microcytosis Macrocytosis Target Cells Sodium Potassium Chloride Carbon Dioxide Anion Gap BUN Creatinine Creat Clearance w eGFR POC Glucometer Random Glucose Serum Osmolality Calcium Total Bilirubin AST ALT Alkaline Phosphatase Creatine Kinase Troponin I B-Natriuretic Peptide Total Protein Albumin Urine Color Dk yellow Urine Appearance Cloudy Urine pH 5.0 D Ur Specific Festus 1.016 Urine Protein 1+ H Urine Glucose (UA) 1+ H Urine Ketones Trace H Urine Blood Negative Urine Nitrite Negative Urine Bilirubin 1+ H Urine Urobilinogen 1.0 Ur Leukocyte Esterase Trace Urine WBC (Auto) 1 Urine RBC (Auto) 2 Urine Casts (Auto) 28 U Pathogenic Cast Auto None seen U Epithel Cells (Auto) 1.6 Urine Bacteria (Auto) 1.0 Urine Osmolality 379 Ur Random Sodium < 18 L 06/07/18 06/07/18 06/07/18 12:24 13:47 17:27 WBC RBC Hgb Hct MCV MCH MCHC RDW Plt Count MPV Absolute Neuts (auto) Neutrophils % Neutrophils % (Manual) Band Neutrophils % Lymphocytes % Lymphocytes % (Manual) Monocytes % Monocytes % (Manual) Eosinophils % Eosinophils % (Manual) Basophils % Basophils % (Manual) Myelocytes % (Man) Promyelocytes % (Man) Blast Cells % (Manual) Nucleated RBC % Metamyelocytes Hypochromia Platelet Estimate Polychromasia Poikilocytosis Anisocytosis Microcytosis Macrocytosis Target Cells Sodium Potassium Chloride Carbon Dioxide Anion Gap BUN Creatinine Creat Clearance w eGFR POC Glucometer 312 285 136 Random Glucose Serum Osmolality Calcium Total Bilirubin AST ALT Alkaline Phosphatase Creatine Kinase Troponin I B-Natriuretic Peptide Total Protein Albumin Urine Color Urine Appearance Urine pH Ur Specific Festus Urine Protein Urine Glucose (UA) Urine Ketones Urine Blood Urine Nitrite Urine Bilirubin Urine Urobilinogen Ur Leukocyte Esterase Urine WBC (Auto) Urine RBC (Auto) Urine Casts (Auto) U Pathogenic Cast Auto U Epithel Cells (Auto) Urine Bacteria (Auto) Urine Osmolality Ur Random Sodium 06/07/18 21:58 WBC RBC Hgb Hct MCV MCH MCHC RDW Plt Count MPV Absolute Neuts (auto) Neutrophils % Neutrophils % (Manual) Band Neutrophils % Lymphocytes % Lymphocytes % (Manual) Monocytes % Monocytes % (Manual) Eosinophils % Eosinophils % (Manual) Basophils % Basophils % (Manual) Myelocytes % (Man) Promyelocytes % (Man) Blast Cells % (Manual) Nucleated RBC % Metamyelocytes Hypochromia Platelet Estimate Polychromasia Poikilocytosis Anisocytosis Microcytosis Macrocytosis Target Cells Sodium Potassium Chloride Carbon Dioxide Anion Gap BUN Creatinine Creat Clearance w eGFR POC Glucometer 237 Random Glucose Serum Osmolality Calcium Total Bilirubin AST ALT Alkaline Phosphatase Creatine Kinase Troponin I B-Natriuretic Peptide Total Protein Albumin Urine Color Urine Appearance Urine pH Ur Specific Festus Urine Protein Urine Glucose (UA) Urine Ketones Urine Blood Urine Nitrite Urine Bilirubin Urine Urobilinogen Ur Leukocyte Esterase Urine WBC (Auto) Urine RBC (Auto) Urine Casts (Auto) U Pathogenic Cast Auto U Epithel Cells (Auto) Urine Bacteria (Auto) Urine Osmolality Ur Random Sodium plan: bgm q4hrs coverage diet nutrition ck hba1c may need levemir 10units pending results of need for coverage
[2018-06-08] MEDS: PIPERACILLIN/TAZOB 3.375 GM 3.375 GM in DEXTROSE 5%-WATER - 50 ML IVPB SCH ×3 (03:00→17:47)
[2018-06-08] MEDS ORDERED: PIPERACILLIN/TAZOBACTAM 3.375 GM VIAL IVPB ONE ×3 (04:10→17:34)
[2018-06-08] MEDS ORDERED: DEXTROSE 5%-WATER - 50 ML IVPB ONE ×3 (04:10→17:34)
[2018-06-08] MEDS: NYSTATIN 500,000 UNITS/5 ML SUSPENSION PO SCH ×4 (04:12→18:42)
[2018-06-08] MEDS: INSULIN SLIDING SCALE (NOVOLOG) 1 VIAL SQ SCH ×5 (06:34→21:29)
[2018-06-08 07:49] LABS: BASO % 0.3 % (0-2.0); EOS % 0.2 % (0-4.5); HEMOGLOBIN 12.8 GM/dL (10.7-15.3); LYMPH % 25.1 % (8-40); MCH 27.7 pg (25.7-33.7); MCHC 33.6 g/dl (32.0-36.0); MEAN CELL VOLUME 82.6 fl (80-96); MEAN PLT VOLUME 8.6 fl (7.5-11.1); MONO % 3.9 % (3.8-10.2); NEUT % 70.5 % (42.8-82.8); PLATELET COUNT 253 K/MM3 (134-434); RDW 18.2 % (11.6-15.6)
[2018-06-08] MEDS: ALBUTEROL SO4 2.5/IPRATROPIUM 0.5 INH SOL 3 ML VIAL.NEB. NEB SCH ×4 (08:01→20:56)
[2018-06-08 08:27] LABS: ALK PHOS 93 U/L (45-117); ANION GAP 8 MMOL/L (8-16); BILIRUBIN,TOTAL 1.2 mg/dL (0.2-1); BLOOD UREA NITROGEN 28 mg/dL (7-18); CALCIUM 8.4 mg/dL (8.5-10.1); CHLORIDE 100 mmol/L (98-107); CO2 30 mmol/L (21-32); CREATININE 1.1 mg/dL (0.55-1.3); GLUCOSE,RANDOM 168 mg/dL (74-106); SGOT/AST 10 U/L (15-37); SGPT/ALT 8 U/L (13-61); SODIUM 138 mmol/L (136-145); TOT PROT 6.9 g/dl (6.4-8.2)
[2018-06-08] MEDS: APIXABAN 5 MG TABLET PO SCH ×2 (10:25→21:28)
[2018-06-08] MEDS: GABAPENTIN 300 MG CAPSULE (FP) PO SCH ×2 (10:25→21:28)
[2018-06-08] MEDS: LOSARTAN POTASSIUM 50 MG TABLET (FP) PO SCH (10:25)
[2018-06-08] MEDS: HYDROCHLOROTHIAZIDE 12.5 MG CAPSULE (FP) PO SCH (10:25)
[2018-06-08] MEDS: FOLIC ACID 1 MG TABLET (FP) PO SCH (10:25)
[2018-06-08] MEDS: ATENOLOL 25 MG TABLET (FP) PO SCH (10:25)
[2018-06-08] MEDS: BUDESONIDE/FORMETEROL FUMARATE 160/4.5 mcg INHALER IH SCH ×2 (10:28→21:29)
--- NOTE | 2018-06-08 10:49 | CONSULT ---
Admitting History and Physical - Primary Care Physician PCP: Pedro Mathur - Admission History of Present Illness: This is a 73 y/o woman with a PMHx of COPD (home O2), HTN, Sickle Cell Anemia, Chronic Back Pain. admitted to Telemetry for GUCCI, Acute Hyponatremia, Hyperglycemia Recently hospitalized at [facility] for pneumonia and had been place on prednisone. Per [id number] likely steroids hyperglycemia secondary to steroids GUCCI diarrhea- r/o cdiff less likely sepsis thrush sickle cell anemia-no pain Nystatin initiated yesterday for thrush.. Selected Entries 06/06/18 06/07/18 06/07/18 19:21 06:06 11:10 Temperature 96.8 F L 99.3 F 98.3 F 06/07/18 06/07/18 06/07/18 15:07 17:00 17:35 Temperature 98.3 F 97.9 F 98.2 F 06/07/18 06/08/18 06/08/18 22:00 01:27 05:00 Temperature 99.1 F 98.2 F 98.2 F 06/08/18 09:00 Temperature 99.1 F Laboratory Tests 06/06/18 06/07/18 06/08/18 22:00 09:30 06:30 WBC 31.6 H* 29.2 H 27.0 H Pt reports some mouth and abdominal discomfort but denies dysphagia on solids and liquids. History Source: Patient Limitations to Obtaining History: No Limitations - Past Medical History Cardiovascular: Yes: Deep Vein Thrombosis, HTN, Other (PE) Pulmonary: Yes: COPD, Pulmonary Embolus ...: No Heme/Onc: Yes: Sickle Cell Disease (SC disease) Psych: Yes: Addictions, Other (Pain meds- methadone, oxycodone ) Musculoskeletal: Yes: Chronic low back pain - Past Surgical History Past Surgical History: Yes: Cholecystectomy, Hysterectomy, Joint Replacement ( bilateral hip replacements) - Smoking History Smoking history: Unknown if ever smoked Have you smoked in the past 12 months: No Aproximately how many cigarettes per day: 0 - Alcohol/Substance Use Hx Alcohol Use: No History of Substance Use: reports: Prescription - Social History ADL: Independent History of Recent Travel: No History - Admission Reason For Visit: ACUTE KIDNEY INJURY - Diagnostics X-ray: Report Reviewed CT Scan: Report Reviewed - General Mental Status: Alert and Oriented, Awake and Alert, Able to Follow Commands Attention: Intact Ability to Follow Directions: Excellent Head/Neck Control: WFL - Hearing Hearing: Normal Speech Evaluation - Communication Primary Language: ANGOLAN Communication: Yes: Within Normal Limits Oral Expression Ability: Yes: No Impairment - Speech Production Able to Make Needs Known: Yes: WNL Intelligibility: Yes: WNL - Speech Characteristics Voice Loudness: Normal Voice Pitch: Yes: Normal Voice Phonatory-based Quality: Yes: Normal Speech Pattern: Normal Speech Clarity: < 100% Nasal Resonance: Normal Articulation: Yes: Precise Rate of Speech: Intact - Language/Auditory Comprehension Observation: Able to respond to yes/no queries: Yes, Yes/No Confusion: No, Comprehends Conversational Speech: Yes - Language/Verbal Expression Able to Respond to Simple Queries: Yes: WNL Able to Communicate Wants and Needs: Yes: WNL Functional Communication Status: Yes: WNL - Memory/Perception terminal clerk Memory: Yes: WNL Short Term Memory: Yes: WNL - Swallow Evaluation/Bedside Assessment Current Nutritional Intake: Full Liquids Oral Secretions: Yes: WFL, R/O Candidiasis (some white patches on tongue and buccal cavity.Nystatin initiated yesterday) Dentition: Yes: Edentulous, Dental Appliance Upper, Dental Appliance Lower Facial Symmetry at Rest: Symmetrical Facial Symmetry on Retraction: Symmetrical Facial Movement: Controlled Against Resistance Opening: Normal Against Resistance Closing: Normal Pucker Lips: Normal Smile: Normal Lingual Movement: Normal, Symmetric Lingual Speed of Movement: Normal Lingual Movement Strgth Against Opposition: Normal Lingual Movement Characteristics: Normal Velopharyngeal Movement: Normal Laryngeal Elevation: WFL Laryngeal Movement: Able to Palpate Rate of Intake: WFL Bolus Size: WFL Labial Seal: WFL Oral Prep Time: WFL A-P Transit: WFL Pocketing: None Timing of Swallow: WFL Coughing/Throat Clear: No Change in Voice: No Recommendations - Speech Evaluation, Impression/Plan Impression: Swallowing overtly intact. Thrush, treated with Nystatin. - Dysphagia Impressions/Plan Dysphagia Impressions: Minimal Impairment *Silent aspiration: cannot be R/O at bedside Dysphagia Treatment Plan: Elevate HOB during feed, OOB for meals - Recommendations Diet Consistency: Other (upgrade diet as tolerated. Use of dentures during mealtime.)
--- NOTE | 2018-06-08 12:20 | PN ---
Progress Note, Physician Chief Complaint: patient feeling tired and weak - Current Medication List Current Medications: Active Medications Albuterol Sulfate (Ventolin 0.083% Nebulizer Soln -) 1 amp NEB Q4H PRN PRN Reason: SHORT OF BREATH/WHEEZING Albuterol/Ipratropium (Duoneb -) 1 amp NEB RQID [facility] Last Admin: 06/08/18 08:01 Dose: 1 amp Albuterol/Ipratropium (Duoneb -) 1 amp NEB Q6H PRN PRN Reason: SHORTNESS OF BREATH Apixaban (Eliquis -) 5 mg PO BID [facility] Last Admin: 06/08/18 10:25 Dose: 5 mg Atenolol (Tenormin -) 25 mg PO DAILY [facility] Last Admin: 06/08/18 10:25 Dose: 25 mg Budesonide/Formoterol Fumarate (Symbicort 160/4.5mcg -) 1 puff IH BID [facility] Last Admin: 06/08/18 10:28 Dose: 1 puff Docusate Sodium (Colace -) 100 mg PO BID PRN PRN Reason: CONSTIPATION Folic Acid (Folic Acid -) 1 mg PO DAILY [facility] Last Admin: 06/08/18 10:25 Dose: 1 mg Gabapentin (Neurontin -) 300 mg PO BID [facility] Last Admin: 06/08/18 10:25 Dose: 300 mg Hydrochlorothiazide (Hctz -) 12.5 mg PO DAILY [facility] Last Admin: 06/08/18 10:25 Dose: 12.5 mg Piperacillin Sod/Tazobactam (Sod 3.375 gm/ Dextrose) 50 mls @ 100 mls/hr IVPB Q8H-IV [facility] Last Admin: 06/08/18 03:00 Dose: 100 mls/hr Insulin Aspart (Novolog Vial Sliding Scale -) 1 vial SQ Q4HWA [facility]; Protocol Last Admin: 06/08/18 06:34 Dose: 6 unit Insulin Detemir (Levemir Vial) 10 units SQ [facility] Losartan Potassium (Cozaar -) 50 mg PO DAILY [facility] Last Admin: 06/08/18 10:25 Dose: 50 mg Montelukast Sodium (Singulair -) 10 mg PO HS [facility] Last Admin: 06/07/18 21:53 Dose: 10 mg Nystatin (Nystatin Oral Suspension -) 500,000 units PO Q6HPO [facility] Last Admin: 06/08/18 05:32 Dose: 500,000 units Oxycodone HCl (Roxicodone -) 15 mg PO Q6H PRN PRN Reason: PAIN LEVEL 7 - 10 - Objective Vital Signs: Vital Signs Temperature 99.1 F 06/08/18 09:00 Pulse Rate 97 H 06/08/18 09:00 Respiratory Rate 20 06/08/18 09:00 Blood Pressure 100/45 L 06/08/18 09:00 O2 Sat by Pulse Oximetry (%) 98 06/08/18 09:00 Constitutional: Yes: Calm Cardiovascular: Yes: Regular Rate and Rhythm, S1, S2 Respiratory: Yes: Diminished Gastrointestinal: Yes: Normal Bowel Sounds, Soft Edema: No Neurological: Yes: Alert, Oriented Labs: CBC, BMP 06/08/18 06:30 06/08/18 06:30 INR, PTT INR 1.06 (0.83-1.09) 06/06/18 20:25 Problem List - Problems (1) GUCCI (acute kidney injury) Assessment/Plan: renal sono renal eval Code(s): N17.9 - ACUTE KIDNEY FAILURE, UNSPECIFIED (2) Diabetes Assessment/Plan: bgm hgba1c levemir 10 units Code(s): E11.9 - TYPE 2 DIABETES MELLITUS WITHOUT COMPLICATIONS (3) Leukocytosis Assessment/Plan: wbc still elevated trending down ID on board Microbiology 06/07/18 10:00 Urine - Urine Clean Catch Urine Culture - Final 06/07/18 08:30 Blood - Peripheral Venous Blood Culture - Preliminary NO GROWTH OBTAINED AFTER 24 HOURS, INCUBATION TO CONTINUE FOR 4 DAYS. 06/07/18 08:30 Blood - Peripheral Venous Blood Culture - Preliminary NO GROWTH OBTAINED AFTER 24 HOURS, INCUBATION TO CONTINUE FOR 4 DAYS. Code(s): D72.829 - ELEVATED WHITE BLOOD CELL COUNT, UNSPECIFIED (4) Thrush Assessment/Plan: nystatin Code(s): B37.0 - CANDIDAL STOMATITIS (5) Pulmonary embolism Assessment/Plan: eliquis Code(s): I26.99 - OTHER PULMONARY EMBOLISM WITHOUT ACUTE COR PULMONALE
[2018-06-08 12:45] LABS: TARGET CELLS 1+
--- NOTE | 2018-06-08 15:46 | PN ---
Progress Note (short form) - Note Progress Note: feels well frequent small bms, no diarrhea Vital Signs Period Temp Pulse Resp BP Sys/Mendez Pulse Ox Last 24 Hr 97.9 F-99.1 F 94-120 18-20 100-145/45-77 98-98 cor-rrr lungs clear abd soft,nt ext no edema CBC, BMP 06/08/18 06:30 06/08/18 06:30 Microbiology 06/07/18 08:30 Blood - Peripheral Venous Blood Culture - Preliminary NO GROWTH OBTAINED AFTER 24 HOURS, INCUBATION TO CONTINUE FOR 4 DAYS. 06/07/18 08:30 Blood - Peripheral Venous Blood Culture - Preliminary NO GROWTH OBTAINED AFTER 24 HOURS, INCUBATION TO CONTINUE FOR 4 DAYS. 06/07/18 10:00 Urine - Urine Clean Catch Urine Culture - Final a/p leukocytosis-most likely steroids hyperglycemia secondary to steroids GUCCI diarrhea- r/o cdiff less likely sepsis thrush sickle cell anemia-no pain zosyn for nowwill d/c in am if cultures are negative iv hydration, control blood sugar f/u cultures stool cdiff if she has diarrhea nystatin for thrush Problem List - Problems (1) Leukocytosis Code(s): D72.829 - ELEVATED WHITE BLOOD CELL COUNT, UNSPECIFIED (2) Thrush Code(s): B37.0 - CANDIDAL STOMATITIS (3) GUCCI (acute kidney injury) Code(s): N17.9 - ACUTE KIDNEY FAILURE, UNSPECIFIED (4) Hyperglycemia Code(s): R73.9 - HYPERGLYCEMIA, UNSPECIFIED (5) Sickle cell anemia Code(s): D57.1 - SICKLE-CELL DISEASE WITHOUT CRISIS Qualifiers: Sickle-cell associated disorders: without crisis Qualified Code(s): D57.1 - Sickle-cell disease without crisis
[2018-06-08] MEDS ORDERED: PT OWN MED DRAWER 7, Y5N ONE (18:17)
[2018-06-08] MEDS: oxyCODONE HCL 5 MG TABLET PO PRN (18:52)
[2018-06-08] MEDS ORDERED: INSULIN (NOVOLOG) ASPART 100 UNITS/ML 10ML VIAL ONE (18:58)
[2018-06-08 20:29] LABS: URINE UREA NITROGEN 519 mg/dL (350-1000)
[2018-06-08] MEDS: INSULIN (LEVEMIR) 100 UNITS/ML UNITS SQ SCH (21:28)
[2018-06-08] MEDS: MONTELUKAST NA 10 MG TABLET PO SCH (21:28)
[2018-06-08] MEDS ORDERED: oxyCODONE HCL 40 MG SUSTAINED ACTING TABLET PO SCH (22:00)
[2018-06-09] MEDS ORDERED: PIPERACILLIN/TAZOBACTAM 3.375 GM VIAL IVPB ONE ×2 (01:03→09:43)
[2018-06-09] MEDS ORDERED: DEXTROSE 5%-WATER - 50 ML IVPB ONE ×2 (01:04→09:43)
[2018-06-09] MEDS: NYSTATIN 500,000 UNITS/5 ML SUSPENSION PO SCH ×5 (01:13→23:42)
[2018-06-09] MEDS: PIPERACILLIN/TAZOB 3.375 GM 3.375 GM in DEXTROSE 5%-WATER - 50 ML IVPB SCH ×2 (01:13→10:26)
[2018-06-09] MEDS: oxyCODONE HCL 5 MG TABLET PO PRN ×3 (02:27→23:42)
[2018-06-09 05:14] LABS: EPI CELLS 17.8 /HPF (0-5/HPF); URINE APPEARANCE CLOUDY; URINE BACTERIA 217.6 /hpf (NEGATIVE); URINE BILIRUBIN NEGATIVE (NEGATIVE); URINE CASTS 8 /lpf (0-8); URINE COLOR YELLOW; URINE GLUCOSE (UA) NEGATIVE (NEGATIVE); URINE KETONE NEGATIVE (NEGATIVE); URINE LEUK ESTERASE 3+ (NEGATIVE); URINE NITRITE NEGATIVE (NEGATIVE); URINE PROTEIN NEGATIVE (NEGATIVE); URINE UROBILINOGEN 0.2 mg/dL (0.2-1.0); URINE WBC 62 /hpf (0-5)
[2018-06-09 05:48] LABS: URINE RBC 5.1 /hpf (0-4)
[2018-06-09] MEDS: INSULIN SLIDING SCALE (NOVOLOG) 1 VIAL SQ SCH ×5 (06:07→22:08)
[2018-06-09] MEDS: ALBUTEROL SO4 2.5/IPRATROPIUM 0.5 INH SOL 3 ML VIAL.NEB. NEB SCH ×3 (07:26→20:47)
[2018-06-09 07:39] LABS: ALBUMIN 2.8 g/dl (3.4-5.0); ALK PHOS 86 U/L (45-117); ANION GAP 8 MMOL/L (8-16); BLOOD UREA NITROGEN 37 mg/dL (7-18); CALCIUM 8.4 mg/dL (8.5-10.1); CHLORIDE 97 mmol/L (98-107); CO2 29 mmol/L (21-32); CREATININE 1.9 mg/dL (0.55-1.3); GLUCOSE,RANDOM 152 mg/dL (74-106); POTASSIUM 3.9 mmol/L (3.5-5.1); SGOT/AST 12 U/L (15-37); SGPT/ALT 8 U/L (13-61); SODIUM 134 mmol/L (136-145); TOT PROT 6.6 g/dl (6.4-8.2)
[2018-06-09] MEDS: APIXABAN 5 MG TABLET PO SCH ×2 (09:44→22:01)
[2018-06-09] MEDS: LOSARTAN POTASSIUM 50 MG TABLET (FP) PO SCH (09:44)
[2018-06-09] MEDS: HYDROCHLOROTHIAZIDE 12.5 MG CAPSULE (FP) PO SCH (09:45)
[2018-06-09] MEDS: oxyCODONE HCL 20 MG SUSTAINED ACTING TABLET PO SCH ×2 (09:45→22:00)
[2018-06-09] MEDS: FOLIC ACID 1 MG TABLET (FP) PO SCH (09:45)
[2018-06-09] MEDS: GABAPENTIN 300 MG CAPSULE (FP) PO SCH ×2 (09:45→22:01)
[2018-06-09] MEDS: BUDESONIDE/FORMETEROL FUMARATE 160/4.5 mcg INHALER IH SCH ×2 (10:26→22:08)
[2018-06-09] MEDS ORDERED: SODIUM CHLORIDE 1,000 ML IV SCH ×2 (11:00→14:47)
[2018-06-09] MEDS: ATENOLOL 25 MG TABLET (FP) PO SCH (11:55)
--- NOTE | 2018-06-09 12:03 | PN ---
Progress Note, CHARACTER ARTIST - Note Progress Note: Selected Entries 06/08/18 06/08/18 06/08/18 01:27 05:00 09:00 Breakfast Diet Tolerated Supper Temperature 98.2 F 98.2 F 99.1 F 06/08/18 06/08/18 06/08/18 12:09 14:00 17:00 Breakfast 25% Diet Tolerated Fair Supper Temperature 97.9 F 98.1 F 06/08/18 06/08/18 06/09/18 18:50 19:35 01:24 Breakfast Diet Tolerated Well Supper 75% Temperature 98.7 F 98.1 F 06/09/18 06/09/18 06/09/18 05:05 09:00 10:34 Breakfast 75% Diet Tolerated Well Supper Temperature 98.2 F 98.4 F Laboratory Tests 06/08/18 06:30 WBC 27.0 H Upgraded to reg diet/thin liquids. Tolerating diet. No further f/u indicated
--- NOTE | 2018-06-09 12:11 | PN ---
Progress Note (short form) - Note Progress Note: feels well no diarrhea, no frequent bms now both legs/calves are hurting Vital Signs Period Temp Pulse Resp BP Sys/Mendez Pulse Ox Last 24 Hr 97.9 F-98.7 F 91-96 20-20 96-136/50-73 97-97 cor-rrr lungs clear abd soft,nt ext no erythema, no swelling of her legs CBC, BMP 06/08/18 06:30 06/09/18 05:30 Microbiology 06/07/18 08:30 Blood - Peripheral Venous Blood Culture - Preliminary NO GROWTH OBTAINED AFTER 48 HOURS, INCUBATION TO CONTINUE FOR 3 DAYS. 06/07/18 08:30 Blood - Peripheral Venous Blood Culture - Preliminary NO GROWTH OBTAINED AFTER 48 HOURS, INCUBATION TO CONTINUE FOR 3 DAYS. 06/07/18 10:00 Urine - Urine Clean Catch Urine Culture - Final Current Medications Albuterol Sulfate (Ventolin 0.083% Nebulizer Soln -) 1 amp NEB Q4H PRN PRN Reason: SHORT OF BREATH/WHEEZING Albuterol/Ipratropium (Duoneb -) 1 amp NEB RQID [facility] Last Admin: 06/09/18 07:26 Dose: 1 amp Albuterol/Ipratropium (Duoneb -) 1 amp NEB Q6H PRN PRN Reason: SHORTNESS OF BREATH Apixaban (Eliquis -) 5 mg PO BID [facility] Last Admin: 06/09/18 09:44 Dose: 5 mg Atenolol (Tenormin -) 25 mg PO DAILY [facility] Last Admin: 06/09/18 11:55 Dose: 25 mg Budesonide/Formoterol Fumarate (Symbicort 160/4.5mcg -) 1 puff IH BID [facility] Last Admin: 06/09/18 10:26 Dose: 1 puff Docusate Sodium (Colace -) 100 mg PO BID PRN PRN Reason: CONSTIPATION Folic Acid (Folic Acid -) 1 mg PO DAILY [facility] Last Admin: 06/09/18 09:45 Dose: 1 mg Gabapentin (Neurontin -) 300 mg PO BID [facility] Last Admin: 06/09/18 09:45 Dose: 300 mg Piperacillin Sod/Tazobactam (Sod 3.375 gm/ Dextrose) 50 mls @ 100 mls/hr IVPB Q8H-IV [facility] Last Admin: 06/09/18 10:26 Dose: 100 mls/hr Sodium Chloride (Normal Saline -) 1,000 mls @ 75 mls/hr IV ASDIR [facility] Last Admin: 06/09/18 11:26 Dose: 75 mls/hr Insulin Aspart (Novolog Vial Sliding Scale -) 1 vial SQ Q4HWA [facility]; Protocol Last Admin: 06/09/18 10:35 Dose: 4 unit Insulin Detemir (Levemir Vial) 10 units SQ [facility] Last Admin: 06/08/18 21:28 Dose: 10 units Losartan Potassium (Cozaar -) 50 mg PO DAILY [facility] Last Admin: 06/09/18 09:44 Dose: 50 mg Montelukast Sodium (Singulair -) 10 mg PO HS [facility] Last Admin: 06/08/18 21:28 Dose: 10 mg Nystatin (Nystatin Oral Suspension -) 500,000 units PO Q6HPO [facility] Last Admin: 06/09/18 11:32 Dose: 500,000 units Oxycodone HCl (Roxicodone -) 30 mg PO Q6H PRN PRN Reason: PAIN LEVEL 7 - 10 Last Admin: 06/09/18 11:32 Dose: 30 mg Oxycodone HCl (Oxycontin -) 40 mg PO BID [facility] Last Admin: 06/09/18 09:45 Dose: 40 mg a/p leukocytosis-most likely steroids-no cbc today, will repeat in am hyperglycemia secondary to steroids GUCCI less likely sepsis thrush sickle cell anemia-no pain d/c zosyn, no signs infection bilateral duplex r/o dvt with bilateral calf pain continue nystatin for thrush cbc in am Problem List - Problems (1) Leukocytosis Code(s): D72.829 - ELEVATED WHITE BLOOD CELL COUNT, UNSPECIFIED (2) Thrush Code(s): B37.0 - CANDIDAL STOMATITIS (3) GUCCI (acute kidney injury) Code(s): N17.9 - ACUTE KIDNEY FAILURE, UNSPECIFIED (4) Hyperglycemia Code(s): R73.9 - HYPERGLYCEMIA, UNSPECIFIED (5) Sickle cell anemia Code(s): D57.1 - SICKLE-CELL DISEASE WITHOUT CRISIS Qualifiers: Sickle-cell associated disorders: without crisis Qualified Code(s): D57.1 - Sickle-cell disease without crisis
--- NOTE | 2018-06-09 12:44 | PN ---
Physical Exam: SUBJECTIVE: Patient seen and examined at bedside. Has some leg pains today but felt some relief after pain meds. OBJECTIVE: Vital Signs Period Temp Pulse Resp BP Sys/Mendez Pulse Ox Last 24 Hr 97.9 F-98.7 F 91-96 20-20 96-136/50-81 97-97 GENERAL: Awake, alert, and fully oriented, in no acute distress. HEAD: Normal with no signs of trauma. EYES: extraocular movements intact, sclera anicteric, conjunctiva clear. EARS, NOSE, THROAT: Ears normal, nares patent NECK: Normal range of motion, supple without lymphadenopathy, JVD, or masses. LUNGS: Breath sounds equal, clear to auscultation bilaterally. HEART: Tachycardic, normal S1 and S2 ABDOMEN: Soft, nontender, normoactive bowel sounds LOWER EXTREMITIES: warm, well-perfused. No peripheral edema. NEUROLOGICAL: Cranial nerves II-XII grossly intact. Normal speech. Gait not observed. PSYCHIATRIC: Cooperative. Good eye contact. Appropriate mood and affect. SKIN: Warm, dry Laboratory Results - last 24 hr 06/07/18 06/08/18 06/08/18 09:40 06:30 17:04 Total Counted 100 Neutrophils % (Manual) 79.0 Lymphocytes % (Manual) 16.0 D Monocytes % (Manual) 5 D Poikilocytosis 1+ Target Cells 1+ Sodium Potassium Chloride Carbon Dioxide Anion Gap BUN Creatinine Creat Clearance w eGFR POC Glucometer 196 Random Glucose Hemoglobin A1c % Calcium Total Bilirubin AST ALT Alkaline Phosphatase Total Protein Albumin Urine Color Urine Appearance Urine pH Ur Specific Tram Urine Protein Urine Glucose (UA) Urine Ketones Urine Blood Urine Nitrite Urine Bilirubin Urine Urobilinogen Ur Leukocyte Esterase Urine WBC (Auto) Urine RBC (Auto) Urine Casts (Auto) U Pathogenic Cast Auto U Epithel Cells (Auto) U Sm Round Cell (Auto) Urine Crystals (Auto) Urine Bacteria (Auto) Ur Random Creatinine U Random Total Protein Ur Random Sodium < 18 L Ur Random Urea Nitrogn 519 06/08/18 06/09/18 06/09/18 21:26 00:05 00:05 Total Counted Neutrophils % (Manual) Lymphocytes % (Manual) Monocytes % (Manual) Poikilocytosis Target Cells Sodium Potassium Chloride Carbon Dioxide Anion Gap BUN Creatinine Creat Clearance w eGFR POC Glucometer 184 Random Glucose Hemoglobin A1c % Calcium Total Bilirubin AST ALT Alkaline Phosphatase Total Protein Albumin Urine Color Yellow Urine Appearance Cloudy Urine pH 6.0 Ur Specific Tram 1.018 Urine Protein Negative Urine Glucose (UA) Negative Urine Ketones Negative Urine Blood Negative Urine Nitrite Negative Urine Bilirubin Negative Urine Urobilinogen 0.2 Ur Leukocyte Esterase 3+ H Urine WBC (Auto) 62 Urine RBC (Auto) 5.1 Urine Casts (Auto) 8 U Pathogenic Cast Auto No Result Required. U Epithel Cells (Auto) 17.8 U Sm Round Cell (Auto) No Result Required. Urine Crystals (Auto) No Result Required. Urine Bacteria (Auto) 217.6 Ur Random Creatinine U Random Total Protein 48.2 H Ur Random Sodium 30 L Ur Random Urea Nitrogn 06/09/18 06/09/18 06/09/18 00:05 05:30 05:30 Total Counted Neutrophils % (Manual) Lymphocytes % (Manual) Monocytes % (Manual) Poikilocytosis Target Cells Sodium 134 L Potassium 3.9 Chloride 97 L Carbon Dioxide 29 Anion Gap 8 BUN 37 H Creatinine 1.9 H Creat Clearance w eGFR 25.84 POC Glucometer Random Glucose 152 H Hemoglobin A1c % 8.0 H Calcium 8.4 L Total Bilirubin 1.0 AST 12 L ALT 8 L Alkaline Phosphatase 86 Total Protein 6.6 Albumin 2.8 L Urine Color Urine Appearance Urine pH Ur Specific Tram Urine Protein Urine Glucose (UA) Urine Ketones Urine Blood Urine Nitrite Urine Bilirubin Urine Urobilinogen Ur Leukocyte Esterase Urine WBC (Auto) Urine RBC (Auto) Urine Casts (Auto) U Pathogenic Cast Auto U Epithel Cells (Auto) U Sm Round Cell (Auto) Urine Crystals (Auto) Urine Bacteria (Auto) Ur Random Creatinine 120.0 U Random Total Protein Ur Random Sodium Ur Random Urea Nitrogn 06/09/18 06/09/18 06:06 10:30 Total Counted Neutrophils % (Manual) Lymphocytes % (Manual) Monocytes % (Manual) Poikilocytosis Target Cells Sodium Potassium Chloride Carbon Dioxide Anion Gap BUN Creatinine Creat Clearance w eGFR POC Glucometer 187 179 Random Glucose Hemoglobin A1c % Calcium Total Bilirubin AST ALT Alkaline Phosphatase Total Protein Albumin Urine Color Urine Appearance Urine pH Ur Specific Tram Urine Protein Urine Glucose (UA) Urine Ketones Urine Blood Urine Nitrite Urine Bilirubin Urine Urobilinogen Ur Leukocyte Esterase Urine WBC (Auto) Urine RBC (Auto) Urine Casts (Auto) U Pathogenic Cast Auto U Epithel Cells (Auto) U Sm Round Cell (Auto) Urine Crystals (Auto) Urine Bacteria (Auto) Ur Random Creatinine U Random Total Protein Ur Random Sodium Ur Random Urea Nitrogn Active Medications Generic Name Dose Route Start Last Admin Trade Name Freq PRN Reason Stop Dose Admin Albuterol Sulfate 1 amp 06/07/18 07:01 Ventolin 0.083% Nebulizer Soln - NEB Q4H PRN SHORT OF BREATH/WHEEZING Albuterol/Ipratropium 1 amp 06/07/18 08:00 06/09/18 07:26 Duoneb - NEB 1 amp RQID [facility] Administration Albuterol/Ipratropium 1 amp 06/07/18 17:13 Duoneb - NEB Q6H PRN SHORTNESS OF BREATH Apixaban 5 mg 06/07/18 10:00 06/09/18 09:44 Eliquis - PO 5 mg BID [facility] Administration Atenolol 25 mg 06/07/18 17:15 06/09/18 11:55 Tenormin - PO 25 mg DAILY [facility] Administration Budesonide/Formoterol Fumarate 1 puff 06/07/18 10:00 06/09/18 10:26 Symbicort 160/4.5mcg - IH 1 puff BID [facility] Administration Docusate Sodium 100 mg 06/07/18 17:13 Colace - PO BID PRN CONSTIPATION Folic Acid 1 mg 06/07/18 10:00 06/09/18 09:45 Folic Acid - PO 1 mg DAILY [facility] Administration Gabapentin 300 mg 06/07/18 22:00 06/09/18 09:45 Neurontin - PO 300 mg BID [facility] Administration Sodium Chloride 1,000 mls @ 75 mls/hr 06/09/18 11:00 06/09/18 11:26 Normal Saline - IV 75 mls/hr ASDIR [facility] Administration Insulin Aspart 1 vial 06/07/18 12:00 06/09/18 10:35 Novolog Vial Sliding Scale - SQ 4 unit Q4HWA [facility] Administration Protocol Insulin Detemir 10 units 06/08/18 22:00 06/08/18 21:28 Levemir Vial SQ 10 units HS [facility] Administration Losartan Potassium 50 mg 06/07/18 17:15 06/09/18 09:44 Cozaar - PO 50 mg DAILY [facility] Administration Montelukast Sodium 10 mg 06/07/18 22:00 06/08/18 21:28 Singulair - PO 10 mg HS [facility] Administration Nystatin 500,000 units 06/07/18 18:00 06/09/18 11:32 Nystatin Oral Suspension - PO 500,000 units Q6HPO [facility] Administration Oxycodone HCl 30 mg 06/08/18 15:18 06/09/18 11:32 Roxicodone - PO 30 mg Q6H PRN Administration PAIN LEVEL 7 - 10 Oxycodone HCl 40 mg 06/09/18 10:00 06/09/18 09:45 Oxycontin - PO 40 mg BID [facility] Administration ASSESSMENT/PLAN: 73 y/o F w/PMH of COPD (on home O2 PRN), HTN, 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 Her and kids at home felt she needed to go to the hospital and was brought to the ER. She was admitted for HHS. Heme consulted for leukocytosis. Leukocytosis COPD HHS Sickle Cell (SC disease) Oral thrush -baseline WBC is approximately 15 and is being followed at [facility]. Was recently on prednisone until from recent discharge from hospital. -Consider restarting steroid therapy/taper as patient had been on steroids since last admission on 05/21. -Nystatin for oral thrush. -C/w folic acid -off abx now -f/u LE U/S Visit type - Emergency Visit Emergency Visit: Yes ED Registration Date: 06/07/18 Care time: The patient presented to the Emergency Department on the above date and was hospitalized for further evaluation of their emergent condition. - New Patient This patient is new to me today: No - Critical Care Critical Care patient: No
--- NOTE | 2018-06-09 13:10 | PN ---
Progress Note, Physician Chief Complaint: patient seen complaining of burning sensation in her toes and calf pain improved with oxycodone started ivf - Current Medication List Current Medications: Active Medications Albuterol Sulfate (Ventolin 0.083% Nebulizer Soln -) 1 amp NEB Q4H PRN PRN Reason: SHORT OF BREATH/WHEEZING Albuterol/Ipratropium (Duoneb -) 1 amp NEB RQID [facility] Last Admin: 06/09/18 07:26 Dose: 1 amp Albuterol/Ipratropium (Duoneb -) 1 amp NEB Q6H PRN PRN Reason: SHORTNESS OF BREATH Apixaban (Eliquis -) 5 mg PO BID [facility] Last Admin: 06/09/18 09:44 Dose: 5 mg Atenolol (Tenormin -) 25 mg PO DAILY [facility] Last Admin: 06/09/18 11:55 Dose: 25 mg Budesonide/Formoterol Fumarate (Symbicort 160/4.5mcg -) 1 puff IH BID [facility] Last Admin: 06/09/18 10:26 Dose: 1 puff Docusate Sodium (Colace -) 100 mg PO BID PRN PRN Reason: CONSTIPATION Folic Acid (Folic Acid -) 1 mg PO DAILY [facility] Last Admin: 06/09/18 09:45 Dose: 1 mg Gabapentin (Neurontin -) 300 mg PO BID [facility] Last Admin: 06/09/18 09:45 Dose: 300 mg Sodium Chloride (Normal Saline -) 1,000 mls @ 75 mls/hr IV ASDIR [facility] Last Admin: 06/09/18 11:26 Dose: 75 mls/hr Insulin Aspart (Novolog Vial Sliding Scale -) 1 vial SQ Q4HWA [facility]; Protocol Last Admin: 06/09/18 10:35 Dose: 4 unit Insulin Detemir (Levemir Vial) 10 units SQ [facility] Last Admin: 06/08/18 21:28 Dose: 10 units Losartan Potassium (Cozaar -) 50 mg PO DAILY [facility] Last Admin: 06/09/18 09:44 Dose: 50 mg Montelukast Sodium (Singulair -) 10 mg PO [facility] Last Admin: 06/08/18 21:28 Dose: 10 mg Nystatin (Nystatin Oral Suspension -) 500,000 units PO Q6HPO [facility] Last Admin: 06/09/18 11:32 Dose: 500,000 units Oxycodone HCl (Roxicodone -) 30 mg PO Q6H PRN PRN Reason: PAIN LEVEL 7 - 10 Last Admin: 06/09/18 11:32 Dose: 30 mg Oxycodone HCl (Oxycontin -) 40 mg PO BID [facility] Last Admin: 06/09/18 09:45 Dose: 40 mg - Objective Vital Signs: Vital Signs Temperature 98.4 F 06/09/18 09:00 Pulse Rate 94 H 06/09/18 11:55 Respiratory Rate 20 06/09/18 11:55 Blood Pressure 123/81 06/09/18 11:55 O2 Sat by Pulse Oximetry (%) 97 06/09/18 09:00 Constitutional: Yes: Calm Cardiovascular: Yes: Regular Rate and Rhythm, S1, S2 Respiratory: Yes: CTA Bilaterally, Diminished (at bases) Gastrointestinal: Yes: Normal Bowel Sounds, Soft Edema: No Neurological: Yes: Alert, Oriented Labs: CBC, BMP 06/08/18 06:30 06/09/18 05:30 INR, PTT INR 1.06 (0.83-1.09) 06/06/18 20:25 Problem List - Problems (1) GUCCI (acute kidney injury) Assessment/Plan: renal sono renal eval Code(s): N17.9 - ACUTE KIDNEY FAILURE, UNSPECIFIED (2) Diabetes Assessment/Plan: bgm hgba1c levemir 10 units Code(s): E11.9 - TYPE 2 DIABETES MELLITUS WITHOUT COMPLICATIONS (3) Leukocytosis Assessment/Plan: wbc still elevated trending down check CBC in morning Microbiology 06/07/18 10:00 Urine - Urine Clean Catch Urine Culture - Final 06/07/18 08:30 Blood - Peripheral Venous Blood Culture - Preliminary NO GROWTH OBTAINED AFTER 24 HOURS, INCUBATION TO CONTINUE FOR 4 DAYS. 06/07/18 08:30 Blood - Peripheral Venous Blood Culture - Preliminary NO GROWTH OBTAINED AFTER 24 HOURS, INCUBATION TO CONTINUE FOR 4 DAYS. Code(s): D72.829 - ELEVATED WHITE BLOOD CELL COUNT, UNSPECIFIED (4) Thrush Assessment/Plan: nystatin Code(s): B37.0 - CANDIDAL STOMATITIS (5) Pulmonary embolism Assessment/Plan: eliquis Code(s): I26.99 - OTHER PULMONARY EMBOLISM WITHOUT ACUTE COR PULMONALE
[2018-06-09 14:41] LABS: BASO % 0.4 % (0-2.0); EOS % 1.3 % (0-4.5); HEMOGLOBIN 11.5 GM/dL (10.7-15.3); LYMPH % 17.2 % (8-40); MCH 27.5 pg (25.7-33.7); MCHC 32.9 g/dl (32.0-36.0); MEAN CELL VOLUME 83.6 fl (80-96); MEAN PLT VOLUME 8.5 fl (7.5-11.1); MONO % 4.4 % (3.8-10.2); NEUT % 76.7 % (42.8-82.8); PLATELET COUNT 204 K/MM3 (134-434); RBC 4.18 M/mm3 (3.60-5.2); RDW 18.4 % (11.6-15.6); WHITE BLOOD COUNT 20.9 K/mm3 (4.0-10.0)
--- NOTE | 2018-06-09 14:46 | PN ---
Progress Note (short form) - Note Progress Note: Renal follow up for GUCCI 73 year old woman with hx of COPD, Asthma, PE on eliquis, sickle cell disease presented with generalized weakness and found to have hyperglycemia and GUCCI. Pt seen and examined at the bedside. Has no acute complaints. Denies any sob, cp, fever or chills making urine Vital Signs Temperature 98.4 F 06/09/18 09:00 Pulse Rate 94 H 06/09/18 11:55 Respiratory Rate 20 06/09/18 11:55 Blood Pressure 123/81 06/09/18 11:55 O2 Sat by Pulse Oximetry (%) 97 06/09/18 09:00 Intake & Output 06/06/18 06/07/18 06/08/18 06/09/18 23:59 23:59 23:59 23:59 Intake Total 300 540 290 Output Total 2 Balance 300 540 288 Weight 83.915 kg 79.56 kg NAD awake and alert neck supple, dry MM, no JVD RRR, no M/R CTA soft NT/ND no LE edema CBC, BMP 06/09/18 13:30 06/09/18 05:30 Current Medications Albuterol Sulfate (Ventolin 0.083% Nebulizer Soln -) 1 amp NEB Q4H PRN PRN Reason: SHORT OF BREATH/WHEEZING Albuterol/Ipratropium (Duoneb -) 1 amp NEB RQID [facility] Last Admin: 06/09/18 07:26 Dose: 1 amp Albuterol/Ipratropium (Duoneb -) 1 amp NEB Q6H PRN PRN Reason: SHORTNESS OF BREATH Apixaban (Eliquis -) 5 mg PO BID [facility] Last Admin: 06/09/18 09:44 Dose: 5 mg Atenolol (Tenormin -) 25 mg PO DAILY [facility] Last Admin: 06/09/18 11:55 Dose: 25 mg Budesonide/Formoterol Fumarate (Symbicort 160/4.5mcg -) 1 puff IH BID [facility] Last Admin: 06/09/18 10:26 Dose: 1 puff Docusate Sodium (Colace -) 100 mg PO BID PRN PRN Reason: CONSTIPATION Folic Acid (Folic Acid -) 1 mg PO DAILY [facility] Last Admin: 06/09/18 09:45 Dose: 1 mg Gabapentin (Neurontin -) 300 mg PO BID [facility] Last Admin: 06/09/18 09:45 Dose: 300 mg Sodium Chloride (Normal Saline -) 1,000 mls @ 75 mls/hr IV ASDIR [facility] Last Admin: 06/09/18 11:26 Dose: 75 mls/hr Insulin Aspart (Novolog Vial Sliding Scale -) 1 vial SQ Q4HWA [facility]; Protocol Last Admin: 06/09/18 14:07 Dose: Not Given Insulin Detemir (Levemir Vial) 10 units SQ [facility] Last Admin: 06/08/18 21:28 Dose: 10 units Losartan Potassium (Cozaar -) 50 mg PO DAILY [facility] Last Admin: 06/09/18 09:44 Dose: 50 mg Montelukast Sodium (Singulair -) 10 mg PO [facility] Last Admin: 06/08/18 21:28 Dose: 10 mg Nystatin (Nystatin Oral Suspension -) 500,000 units PO Q6HPO [facility] Last Admin: 06/09/18 11:32 Dose: 500,000 units Oxycodone HCl (Roxicodone -) 30 mg PO Q6H PRN PRN Reason: PAIN LEVEL 7 - 10 Last Admin: 06/09/18 11:32 Dose: 30 mg Oxycodone HCl (Oxycontin -) 40 mg PO BID [facility] Last Admin: 06/09/18 09:45 Dose: 40 mg 73 year old woman with hx of COPD, Asthma, PE on eliquis, sickle cell disease presented with generalized weakness and found to have hyperglycemia and GUCCI. #GUCCI now reolving from volume depletion in setting of hyperglycemia #Leukocytosis from steroids vs. infection #Hyperglycemia #COPD #PE on A/C etiology of renal injury due to hypoprofusion in setting of hyperglycemia ernestina continue aggressive IVF hydration with NS discontinue HCTZ Can maintain on ARB Trend renal function and electrolytes Enrique Flores DO
[2018-06-09 15:16] LABS: ANISOCYTOSIS 0; MACROCYTOSIS 0; PLATELET ESTIMATE NORMAL; TARGET CELLS 2+
[2018-06-09] MEDS ORDERED: INSULIN (NOVOLOG) ASPART 100 UNITS/ML 10ML VIAL ONE (18:33)
--- NOTE | 2018-06-09 20:33 | PN ---
Progress Note (short form) - Note Progress Note: Patient seen and examined c/o left foot pain denies any other complaints AFVSS Cor: RSR, No murmurs, No gallops Lungs: Clear to P&A Abd: Soft, Normal bowel sounds, No organomegaly Ext:No significant edema Labs/Meds reviewed A/P 73 y/o patient with SC disease Leukocytosis probably related to long course of high dose steroids superimposed on high baseline WBC count in sckle cell patients. cuultures negative Left foot pain --check X ray GUCCI -- on fluids renal f/u
[2018-06-09] MEDS: MONTELUKAST NA 10 MG TABLET PO SCH (22:01)
[2018-06-09] MEDS: INSULIN (LEVEMIR) 100 UNITS/ML UNITS SQ SCH (22:08)
[2018-06-09 23:51] VITALS: BMI 29.1
[2018-06-10] MEDS: ACETAMINOPHEN 325 MG TABLET (FP) PO PRN (03:20)
[2018-06-10] MEDS: oxyCODONE HCL 5 MG TABLET PO PRN (05:22)
[2018-06-10] MEDS: NYSTATIN 500,000 UNITS/5 ML SUSPENSION PO SCH ×4 (05:26→23:30)
[2018-06-10] MEDS: INSULIN SLIDING SCALE (NOVOLOG) 1 VIAL SQ SCH ×5 (05:26→22:35)
[2018-06-10] MEDS: ALBUTEROL SO4 2.5/IPRATROPIUM 0.5 INH SOL 3 ML VIAL.NEB. NEB SCH ×4 (07:30→19:45)
[2018-06-10 07:45] LABS: ALBUMIN 2.6 g/dl (3.4-5.0); ALK PHOS 78 U/L (45-117); ANION GAP 8 MMOL/L (8-16); BILIRUBIN,TOTAL 0.8 mg/dL (0.2-1); BLOOD UREA NITROGEN 37 mg/dL (7-18); CHLORIDE 100 mmol/L (98-107); CO2 30 mmol/L (21-32); CREATININE 1.6 mg/dL (0.55-1.3); GLUCOSE,RANDOM 146 mg/dL (74-106); POTASSIUM 4.1 mmol/L (3.5-5.1); SGOT/AST 11 U/L (15-37); SGPT/ALT 8 U/L (13-61); SODIUM 138 mmol/L (136-145); TOT PROT 5.8 g/dl (6.4-8.2)
[2018-06-10 08:38] LABS: HEMATOCRIT 32.3 % (32.4-45.2); HEMOGLOBIN 10.6 GM/dL (10.7-15.3); MCH 27.5 pg (25.7-33.7); MCHC 32.8 g/dl (32.0-36.0); MEAN CELL VOLUME 83.9 fl (80-96); PLATELET COUNT 188 K/MM3 (134-434); RBC 3.85 M/mm3 (3.60-5.2); RDW 18.5 % (11.6-15.6); WHITE BLOOD COUNT 19.7 K/mm3 (4.0-10.0)
[2018-06-10] MEDS: ATENOLOL 25 MG TABLET (FP) PO SCH (09:08)
[2018-06-10] MEDS: GABAPENTIN 300 MG CAPSULE (FP) PO SCH ×2 (09:08→22:33)
[2018-06-10] MEDS: LOSARTAN POTASSIUM 50 MG TABLET (FP) PO SCH (09:08)
[2018-06-10] MEDS: APIXABAN 5 MG TABLET PO SCH ×2 (09:08→22:33)
[2018-06-10] MEDS: oxyCODONE HCL 20 MG SUSTAINED ACTING TABLET PO SCH ×2 (09:08→22:32)
[2018-06-10] MEDS: FOLIC ACID 1 MG TABLET (FP) PO SCH (09:08)
[2018-06-10] MEDS: BUDESONIDE/FORMETEROL FUMARATE 160/4.5 mcg INHALER IH SCH ×2 (09:09→22:26)
--- NOTE | 2018-06-10 11:19 | PN ---
Progress Note (short form) - Note Progress Note: Renal follow up for GUCCI Pt seen and examined at the bedside had pain in bilateral LE yesterday evening no cp, sob, abd pain making urine on IVF Vital Signs Temperature 98.6 F 06/10/18 08:28 Pulse Rate 93 H 06/10/18 08:28 Respiratory Rate 20 06/10/18 08:28 Blood Pressure 121/59 L 06/10/18 08:28 O2 Sat by Pulse Oximetry (%) 96 06/10/18 08:26 Intake & Output 06/07/18 06/08/18 06/09/18 06/10/18 23:59 23:59 23:59 23:59 Intake Total 399 690 1139 700 Output Total 2 Balance 207 898 9660 700 Weight 79.56 kg 79.379 kg NAD awake and alert neck supple, dry MM, no JVD RRR, no M/R CTA soft NT/ND no LE edema CBC, BMP 06/10/18 05:55 06/10/18 05:55 Current Medications Acetaminophen (Tylenol -) 650 mg PO Q4H PRN PRN Reason: PAIN Last Admin: 06/10/18 03:20 Dose: 650 mg Albuterol Sulfate (Ventolin 0.083% Nebulizer Soln -) 1 amp NEB Q4H PRN PRN Reason: SHORT OF BREATH/WHEEZING Albuterol/Ipratropium (Duoneb -) 1 amp NEB RQID [facility] Last Admin: 06/10/18 07:30 Dose: 1 amp Albuterol/Ipratropium (Duoneb -) 1 amp NEB Q6H PRN PRN Reason: SHORTNESS OF BREATH Apixaban (Eliquis -) 5 mg PO BID [facility] Last Admin: 06/10/18 09:08 Dose: 5 mg Atenolol (Tenormin -) 25 mg PO DAILY [facility] Last Admin: 06/10/18 09:08 Dose: 25 mg Budesonide/Formoterol Fumarate (Symbicort 160/4.5mcg -) 1 puff IH BID [facility] Last Admin: 06/10/18 09:09 Dose: 1 puff Docusate Sodium (Colace -) 100 mg PO BID PRN PRN Reason: CONSTIPATION Folic Acid (Folic Acid -) 1 mg PO DAILY [facility] Last Admin: 06/10/18 09:08 Dose: 1 mg Gabapentin (Neurontin -) 300 mg PO BID [facility] Last Admin: 06/10/18 09:08 Dose: 300 mg Insulin Aspart (Novolog Vial Sliding Scale -) 1 vial SQ Q4HWA [facility]; Protocol Last Admin: 06/10/18 10:47 Dose: Not Given Insulin Detemir (Levemir Vial) 10 units SQ HS [facility] Last Admin: 06/09/18 22:08 Dose: 10 units Losartan Potassium (Cozaar -) 50 mg PO DAILY [facility] Last Admin: 06/10/18 09:08 Dose: 50 mg Montelukast Sodium (Singulair -) 10 mg PO HS [facility] Last Admin: 06/09/18 22:01 Dose: 10 mg Nystatin (Nystatin Oral Suspension -) 500,000 units PO Q6HPO [facility] Last Admin: 06/10/18 05:26 Dose: 500,000 units Oxycodone HCl (Roxicodone -) 30 mg PO Q6H PRN PRN Reason: PAIN LEVEL 7 - 10 Last Admin: 06/10/18 05:22 Dose: 30 mg Oxycodone HCl (Oxycontin -) 40 mg PO BID [facility] Last Admin: 06/10/18 09:08 Dose: 40 mg 73 year old woman with hx of COPD, Asthma, PE on eliquis, sickle cell disease presented with generalized weakness and found to have hyperglycemia and GUCCI. #GUCCI now reolving from volume depletion in setting of hyperglycemia #Leukocytosis from steroids vs. infection #Hyperglycemia #COPD #PE on A/C Renal function improving continue IVF hydration pain control as per primary can continue losartan Enrique Flores DO
[2018-06-10 12:14] LABS: ANISOCYTOSIS 1+; MACROCYTOSIS 0; PLATELET ESTIMATE NORMAL; TARGET CELLS 2+
--- NOTE | 2018-06-10 12:19 | PN ---
Progress Note, Physician - Current Medication List Current Medications: Active Medications Acetaminophen (Tylenol -) 650 mg PO Q4H PRN PRN Reason: PAIN Last Admin: 06/10/18 03:20 Dose: 650 mg Albuterol Sulfate (Ventolin 0.083% Nebulizer Soln -) 1 amp NEB Q4H PRN PRN Reason: SHORT OF BREATH/WHEEZING Albuterol/Ipratropium (Duoneb -) 1 amp NEB RQID [facility] Last Admin: 06/10/18 11:30 Dose: 1 amp Albuterol/Ipratropium (Duoneb -) 1 amp NEB Q6H PRN PRN Reason: SHORTNESS OF BREATH Apixaban (Eliquis -) 5 mg PO BID [facility] Last Admin: 06/10/18 09:08 Dose: 5 mg Atenolol (Tenormin -) 25 mg PO DAILY [facility] Last Admin: 06/10/18 09:08 Dose: 25 mg Budesonide/Formoterol Fumarate (Symbicort 160/4.5mcg -) 1 puff IH BID [facility] Last Admin: 06/10/18 09:09 Dose: 1 puff Docusate Sodium (Colace -) 100 mg PO BID PRN PRN Reason: CONSTIPATION Folic Acid (Folic Acid -) 1 mg PO DAILY [facility] Last Admin: 06/10/18 09:08 Dose: 1 mg Gabapentin (Neurontin -) 300 mg PO BID [facility] Last Admin: 06/10/18 09:08 Dose: 300 mg Insulin Aspart (Novolog Vial Sliding Scale -) [facility]; Protocol Last Admin: 06/10/18 10:47 Dose: Not Given Insulin Detemir (Levemir Vial) 10 units SQ [facility] Last Admin: 06/09/18 22:08 Dose: 10 units Losartan Potassium (Cozaar -) 50 mg PO DAILY [facility] Last Admin: 06/10/18 09:08 Dose: 50 mg Montelukast Sodium (Singulair -) 10 mg PO [facility] Last Admin: 06/09/18 22:01 Dose: 10 mg Nystatin (Nystatin Oral Suspension -) 500,000 units PO Q6HPO [facility] Last Admin: 06/10/18 05:26 Dose: 500,000 units Oxycodone HCl (Roxicodone -) 30 mg PO Q6H PRN PRN Reason: PAIN LEVEL 7 - 10 Last Admin: 06/10/18 05:22 Dose: 30 mg Oxycodone HCl (Oxycontin -) 40 mg PO BID [facility] Last Admin: 06/10/18 09:08 Dose: 40 mg - Objective Vital Signs: Vital Signs Temperature 98.6 F 06/10/18 08:28 Pulse Rate 93 H 06/10/18 08:28 Respiratory Rate 20 06/10/18 08:28 Blood Pressure 121/59 L 06/10/18 08:28 O2 Sat by Pulse Oximetry (%) 96 06/10/18 08:26 Cardiovascular: Yes: S1, S2 Respiratory: Yes: Regular, CTA Bilaterally Gastrointestinal: Yes: Normal Bowel Sounds, Soft Labs: CBC, BMP 06/10/18 05:55 06/10/18 05:55 INR, PTT INR 1.06 (0.83-1.09) 06/06/18 20:25 Problem List - Problems (1) GUCCI (acute kidney injury) Code(s): N17.9 - ACUTE KIDNEY FAILURE, UNSPECIFIED (2) Sepsis Code(s): A41.9 - SEPSIS, UNSPECIFIED ORGANISM (3) HTN (hypertension) Code(s): I10 - ESSENTIAL (PRIMARY) HYPERTENSION Qualifiers: Hypertension type: essential hypertension Qualified Code(s): I10 - Essential (primary) hypertension (4) Lethargy Code(s): R53.83 - OTHER FATIGUE (5) Diabetes Code(s): E11.9 - TYPE 2 DIABETES MELLITUS WITHOUT COMPLICATIONS Assessment/Plan - Problems (1) GUCCI (acute kidney injury) Assessment/Plan: renal sono renal on board Code(s): N17.9 - ACUTE KIDNEY FAILURE, UNSPECIFIED (2) Diabetes Assessment/Plan: bgm hgba1c levemir 10 units Code(s): E11.9 - TYPE 2 DIABETES MELLITUS WITHOUT COMPLICATIONS (3) Leukocytosis Assessment/Plan: wbc still elevated trending down-19 ID on board Microbiology 06/07/18 10:00 Urine - Urine Clean Catch Urine Culture - Final 06/07/18 08:30 Blood - Peripheral Venous Blood Culture - Preliminary NO GROWTH OBTAINED AFTER 24 HOURS, INCUBATION TO CONTINUE FOR 4 DAYS. 06/07/18 08:30 Blood - Peripheral Venous Blood Culture - Preliminary NO GROWTH OBTAINED AFTER 24 HOURS, INCUBATION TO CONTINUE FOR 4 DAYS. Code(s): D72.829 - ELEVATED WHITE BLOOD CELL COUNT, UNSPECIFIED (4) Anemia Assessment/Plan: repeat cbc w/u ordered (5) Pulmonary embolism Assessment/Plan: eliquis Code(s): I26.99 - OTHER PULMONARY EMBOLISM WITHOUT ACUTE COR PULMONALE
[2018-06-10 13:18] LABS: HEMATOCRIT 32.5 % (32.4-45.2); HEMOGLOBIN 10.6 GM/dL (10.7-15.3); MCH 27.2 pg (25.7-33.7); MCHC 32.6 g/dl (32.0-36.0); MEAN CELL VOLUME 83.4 fl (80-96); MEAN PLT VOLUME 8.2 fl (7.5-11.1); PLATELET COUNT 191 K/MM3 (134-434); RDW 18.5 % (11.6-15.6); WHITE BLOOD COUNT 18.5 K/mm3 (4.0-10.0)
[2018-06-10] MEDS: SODIUM CHLORIDE 1,000 ML IV SCH ×2 (14:36→22:39)
[2018-06-10 15:31] LABS: ANISOCYTOSIS 1+; MACROCYTOSIS 1+; OVALOCYTE 1+; PLATELET ESTIMATE NORMAL; TARGET CELLS 2+; TEAR DROP CELLS 1+
--- NOTE | 2018-06-10 21:50 | PN ---
Progress Note, Physician History of Present Illness: Currently denies pain. feels well. - Current Medication List Current Medications: Active Medications Acetaminophen (Tylenol -) 650 mg PO Q4H PRN PRN Reason: PAIN Last Admin: 06/10/18 03:20 Dose: 650 mg Albuterol Sulfate (Ventolin 0.083% Nebulizer Soln -) 1 amp NEB Q4H PRN PRN Reason: SHORT OF BREATH/WHEEZING Albuterol/Ipratropium (Duoneb -) 1 amp NEB RQID [facility] Last Admin: 06/10/18 19:45 Dose: 1 amp Albuterol/Ipratropium (Duoneb -) 1 amp NEB Q6H PRN PRN Reason: SHORTNESS OF BREATH Apixaban (Eliquis -) 5 mg PO BID [facility] Last Admin: 06/10/18 09:08 Dose: 5 mg Atenolol (Tenormin -) 25 mg PO DAILY [facility] Last Admin: 06/10/18 09:08 Dose: 25 mg Budesonide/Formoterol Fumarate (Symbicort 160/4.5mcg -) 1 puff IH BID [facility] Last Admin: 06/10/18 09:09 Dose: 1 puff Docusate Sodium (Colace -) 100 mg PO BID PRN PRN Reason: CONSTIPATION Folic Acid (Folic Acid -) 1 mg PO DAILY [facility] Last Admin: 06/10/18 09:08 Dose: 1 mg Gabapentin (Neurontin -) 300 mg PO BID [facility] Last Admin: 06/10/18 09:08 Dose: 300 mg Sodium Chloride (Normal Saline -) 1,000 mls @ 83 mls/hr IV ASDIR [facility] Last Admin: 06/10/18 14:36 Dose: 83 mls/hr Insulin Aspart (Novolog Vial Sliding Scale -) [facility]; Protocol Last Admin: 06/10/18 18:18 Dose: 4 unit Insulin Detemir (Levemir Vial) 10 units SQ [facility] Last Admin: 06/09/18 22:08 Dose: 10 units Losartan Potassium (Cozaar -) 50 mg PO DAILY [facility] Last Admin: 06/10/18 09:08 Dose: 50 mg Montelukast Sodium (Singulair -) 10 mg PO [facility] Last Admin: 06/09/18 22:01 Dose: 10 mg Nystatin (Nystatin Oral Suspension -) 500,000 units PO Q6HPO [facility] Last Admin: 06/10/18 18:12 Dose: 500,000 units Oxycodone HCl (Roxicodone -) 30 mg PO Q6H PRN PRN Reason: PAIN LEVEL 7 - 10 Last Admin: 06/10/18 05:22 Dose: 30 mg Oxycodone HCl (Oxycontin -) 40 mg PO BID [facility] Last Admin: 06/10/18 09:08 Dose: 40 mg - Objective Vital Signs: Vital Signs Temperature 97.9 F 06/10/18 14:40 Pulse Rate 92 H 06/10/18 14:40 Respiratory Rate 18 06/10/18 20:49 Blood Pressure 110/65 06/10/18 14:40 O2 Sat by Pulse Oximetry (%) 96 06/10/18 20:49 Constitutional: Yes: Well Nourished Respiratory: Yes: Regular, CTA Bilaterally Gastrointestinal: Yes: Soft Edema: No Labs: CBC, BMP 06/10/18 12:55 06/10/18 05:55 INR, PTT INR 1.06 (0.83-1.09) 06/06/18 20:25 Assessment/Plan 73 year old woman with hx of COPD, Asthma, PE on eliquis, Hgb SC disease admitted with generalized weakness and found to have hyperglycemia and GUCCI. Leg pain resolved. WBC trending down. Will continue to follow
[2018-06-10] MEDS: MONTELUKAST NA 10 MG TABLET PO SCH (22:32)
[2018-06-10] MEDS: INSULIN (LEVEMIR) 100 UNITS/ML UNITS SQ SCH (22:33)
[2018-06-11] MEDS: oxyCODONE HCL 5 MG TABLET PO PRN (02:14)
[2018-06-11] MEDS: NYSTATIN 500,000 UNITS/5 ML SUSPENSION PO SCH ×3 (05:00→17:32)
[2018-06-11] MEDS: INSULIN SLIDING SCALE (NOVOLOG) 1 VIAL SQ SCH ×4 (05:06→21:50)
[2018-06-11] MEDS: ALBUTEROL SO4 2.5/IPRATROPIUM 0.5 INH SOL 3 ML VIAL.NEB. NEB SCH ×4 (07:21→20:45)
[2018-06-11 07:47] LABS: ALBUMIN 2.9 g/dl (3.4-5.0); ALK PHOS 89 U/L (45-117); ANION GAP 7 MMOL/L (8-16); BILIRUBIN,TOTAL 0.9 mg/dL (0.2-1); BLOOD UREA NITROGEN 25 mg/dL (7-18); CALCIUM 8.6 mg/dL (8.5-10.1); CHLORIDE 103 mmol/L (98-107); CO2 31 mmol/L (21-32); CREATININE 1.1 mg/dL (0.55-1.3); GLUCOSE,RANDOM 142 mg/dL (74-106); HEMATOCRIT 29.7 % (32.4-45.2); HEMOGLOBIN 10.1 GM/dL (10.7-15.3); MAGNESIUM 1.8 mg/dL (1.8-2.4); MEAN CELL VOLUME 82.2 fl (80-96); MEAN PLT VOLUME 8.8 fl (7.5-11.1); PHOSPHOROUS 2.4 mg/dL (2.5-4.9); PLATELET COUNT 178 K/MM3 (134-434); POTASSIUM 4.3 mmol/L (3.5-5.1); RBC 3.61 M/mm3 (3.60-5.2); RDW 18.6 % (11.6-15.6); SGOT/AST 16 U/L (15-37); SGPT/ALT 10 U/L (13-61); SODIUM 141 mmol/L (136-145); TOT PROT 6.4 g/dl (6.4-8.2)
[2018-06-11] MEDS: FOLIC ACID 1 MG TABLET (FP) PO SCH (09:45)
[2018-06-11] MEDS: ATENOLOL 25 MG TABLET (FP) PO SCH (09:45)
[2018-06-11] MEDS: APIXABAN 5 MG TABLET PO SCH ×2 (09:45→21:43)
[2018-06-11] MEDS: GABAPENTIN 300 MG CAPSULE (FP) PO SCH ×2 (09:45→21:42)
[2018-06-11] MEDS: LOSARTAN POTASSIUM 50 MG TABLET (FP) PO SCH (09:45)
[2018-06-11] MEDS: oxyCODONE HCL 20 MG SUSTAINED ACTING TABLET PO SCH ×2 (09:45→21:42)
[2018-06-11] MEDS: BUDESONIDE/FORMETEROL FUMARATE 160/4.5 mcg INHALER IH SCH ×2 (09:46→21:51)
--- NOTE | 2018-06-11 10:24 | PN ---
Progress Note (short form) - Note Progress Note: Renal follow up for GUCCI Pt seen and examined at the bedside appears confused and talking very fast denies any sob, cp, abd pain denies any weakness of her extremities no cp, fever or chills leg pain is improved making urine Vital Signs Temperature 98.9 F 06/11/18 09:41 Pulse Rate 90 06/11/18 09:41 Respiratory Rate 18 06/11/18 09:41 Blood Pressure 112/67 06/11/18 09:41 O2 Sat by Pulse Oximetry (%) 96 06/11/18 07:50 Intake & Output 06/08/18 06/09/18 06/10/18 06/11/18 23:59 23:59 23:59 23:59 Intake Total 540 1590 3176 581 Output Total 2 Balance 540 1588 3176 581 Weight 79.379 kg NAD awake and alert neck supple, dry MM, no JVD RRR, no M/R CTA soft NT/ND no LE edema CBC, BMP 06/11/18 05:35 06/11/18 05:35 Current Medications Acetaminophen (Tylenol -) 650 mg PO Q4H PRN PRN Reason: PAIN Last Admin: 06/10/18 03:20 Dose: 650 mg Albuterol Sulfate (Ventolin 0.083% Nebulizer Soln -) 1 amp NEB Q4H PRN PRN Reason: SHORT OF BREATH/WHEEZING Albuterol/Ipratropium (Duoneb -) 1 amp NEB RQID [facility] Last Admin: 06/11/18 07:21 Dose: 1 amp Albuterol/Ipratropium (Duoneb -) 1 amp NEB Q6H PRN PRN Reason: SHORTNESS OF BREATH Apixaban (Eliquis -) 5 mg PO BID [facility] Last Admin: 06/11/18 09:45 Dose: 5 mg Atenolol (Tenormin -) 25 mg PO DAILY [facility] Last Admin: 06/11/18 09:45 Dose: 25 mg Budesonide/Formoterol Fumarate (Symbicort 160/4.5mcg -) 1 puff IH BID [facility] Last Admin: 06/11/18 09:46 Dose: 1 puff Docusate Sodium (Colace -) 100 mg PO BID PRN PRN Reason: CONSTIPATION Folic Acid (Folic Acid -) 1 mg PO DAILY [facility] Last Admin: 06/11/18 09:45 Dose: 1 mg Gabapentin (Neurontin -) 300 mg PO BID [facility] Last Admin: 06/11/18 09:45 Dose: 300 mg Sodium Chloride (Normal Saline -) 1,000 mls @ 83 mls/hr IV ASDIR [facility] Last Admin: 06/10/18 22:39 Dose: 83 mls/hr Insulin Aspart (Novolog Vial Sliding Scale -) 1 vial SQ Q4HWA [facility]; Protocol Last Admin: 06/11/18 05:06 Dose: Not Given Insulin Detemir (Levemir Vial) [address] [facility] Last Admin: 06/10/18 22:33 Dose: 10 units Losartan Potassium (Cozaar -) 50 mg PO DAILY [facility] Last Admin: 06/11/18 09:45 Dose: 50 mg Montelukast Sodium (Singulair -) [address] [facility] Last Admin: 06/10/18 22:32 Dose: 10 mg Nystatin (Nystatin Oral Suspension -) 500,000 units PO Q6HPO [facility] Last Admin: 06/11/18 05:00 Dose: 500,000 units Oxycodone HCl (Roxicodone -) 30 mg PO Q6H PRN PRN Reason: PAIN LEVEL 7 - 10 Last Admin: 06/11/18 02:14 Dose: 30 mg Oxycodone HCl (Oxycontin -) 40 mg PO BID [facility] Last Admin: 06/11/18 09:45 Dose: 40 mg 73 year old woman with hx of COPD, Asthma, PE on eliquis, sickle cell disease presented with generalized weakness and found to have hyperglycemia and GUCCI. #GUCCI now reolving from volume depletion in setting of hyperglycemia #Leukocytosis from steroids vs. infection #Hyperglycemia #COPD #PE on A/C Renal function now improved to near baseline will reduce IVF rate and plan to d/c in 24 hours etiology of confusion unclear, had CT head this admission that showed no acute pathology. Does not appear to have any focal neurologic deficits. Consider neurology and psych eval. Enrique Flores DO
--- NOTE | 2018-06-11 10:58 | PN ---
Progress Note, Physician - Current Medication List Current Medications: Active Medications Acetaminophen (Tylenol -) 650 mg PO Q4H PRN PRN Reason: PAIN Last Admin: 06/10/18 03:20 Dose: 650 mg Albuterol Sulfate (Ventolin 0.083% Nebulizer Soln -) 1 amp NEB Q4H PRN PRN Reason: SHORT OF BREATH/WHEEZING Albuterol/Ipratropium (Duoneb -) 1 amp NEB RQID [facility] Last Admin: 06/11/18 07:21 Dose: 1 amp Albuterol/Ipratropium (Duoneb -) 1 amp NEB Q6H PRN PRN Reason: SHORTNESS OF BREATH Apixaban (Eliquis -) 5 mg PO BID [facility] Last Admin: 06/11/18 09:45 Dose: 5 mg Atenolol (Tenormin -) 25 mg PO DAILY [facility] Last Admin: 06/11/18 09:45 Dose: 25 mg Budesonide/Formoterol Fumarate (Symbicort 160/4.5mcg -) 1 puff IH BID [facility] Last Admin: 06/11/18 09:46 Dose: 1 puff Docusate Sodium (Colace -) 100 mg PO BID PRN PRN Reason: CONSTIPATION Folic Acid (Folic Acid -) 1 mg PO DAILY [facility] Last Admin: 06/11/18 09:45 Dose: 1 mg Gabapentin (Neurontin -) 300 mg PO BID [facility] Last Admin: 06/11/18 09:45 Dose: 300 mg Insulin Aspart (Novolog Vial Sliding Scale -) [facility]; Protocol Last Admin: 06/11/18 10:42 Dose: 6 units Insulin Detemir (Levemir Vial) 10 units SQ [facility] Last Admin: 06/10/18 22:33 Dose: 10 units Losartan Potassium (Cozaar -) 50 mg PO DAILY [facility] Last Admin: 06/11/18 09:45 Dose: 50 mg Montelukast Sodium (Singulair -) 10 mg PO [facility] Last Admin: 06/10/18 22:32 Dose: 10 mg Nystatin (Nystatin Oral Suspension -) 500,000 units PO Q6HPO [facility] Last Admin: 06/11/18 05:00 Dose: 500,000 units Oxycodone HCl (Roxicodone -) 30 mg PO Q6H PRN PRN Reason: PAIN LEVEL 7 - 10 Last Admin: 06/11/18 02:14 Dose: 30 mg Oxycodone HCl (Oxycontin -) 40 mg PO BID [facility] Last Admin: 06/11/18 09:45 Dose: 40 mg - Objective Vital Signs: Vital Signs Temperature 98.9 F 06/11/18 09:41 Pulse Rate 90 06/11/18 09:41 Respiratory Rate 18 06/11/18 09:41 Blood Pressure 112/67 06/11/18 09:41 O2 Sat by Pulse Oximetry (%) 96 06/11/18 07:50 Cardiovascular: Yes: S1, S2 Respiratory: Yes: Regular, CTA Bilaterally Gastrointestinal: Yes: Normal Bowel Sounds, Soft Labs: CBC, BMP 06/11/18 05:35 06/11/18 05:35 INR, PTT INR 1.06 (0.83-1.09) 06/06/18 20:25 Problem List - Problems (1) GUCCI (acute kidney injury) Assessment/Plan: Serial BMPs BGMs Q1H until Glucose < 200 then Q4H Nephrology Consult for GUCCI, Hyponatremia Urine Osmo, Serum Osmo, Urine Na 0.45%NS@60ml/hr, Replete lytes prn, NPO Code(s): N17.9 - ACUTE KIDNEY FAILURE, UNSPECIFIED (2) Sepsis Assessment/Plan: CULTURES IV ABX ID CONSULT FOLLOW LABS Code(s): A41.9 - SEPSIS, UNSPECIFIED ORGANISM (3) HTN (hypertension) Code(s): I10 - ESSENTIAL (PRIMARY) HYPERTENSION Qualifiers: Hypertension type: essential hypertension Qualified Code(s): I10 - Essential (primary) hypertension (4) Lethargy Code(s): R53.83 - OTHER FATIGUE (5) Diabetes Code(s): E11.9 - TYPE 2 DIABETES MELLITUS WITHOUT COMPLICATIONS Assessment/Plan - Problems (1) GUCCI (acute kidney injury) Assessment/Plan: improved--dc ivf renal sono renal on board Code(s): N17.9 - ACUTE KIDNEY FAILURE, UNSPECIFIED (2) Diabetes Assessment/Plan: bgm hgba1c levemir 10 units Code(s): E11.9 - TYPE 2 DIABETES MELLITUS WITHOUT COMPLICATIONS (3) Leukocytosis Assessment/Plan: wbc still elevated trending down-18 ID on board Microbiology 06/07/18 10:00 Urine - Urine Clean Catch Urine Culture - Final 06/07/18 08:30 Blood - Peripheral Venous Blood Culture - Preliminary NO GROWTH OBTAINED AFTER 24 HOURS, INCUBATION TO CONTINUE FOR 4 DAYS. 06/07/18 08:30 Blood - Peripheral Venous Blood Culture - Preliminary NO GROWTH OBTAINED AFTER 24 HOURS, INCUBATION TO CONTINUE FOR 4 DAYS. Code(s): D72.829 - ELEVATED WHITE BLOOD CELL COUNT, UNSPECIFIED (4) Anemia Assessment/Plan: repeat cbc w/u ordered (5) Pulmonary embolism Assessment/Plan: eliquis Code(s): I26.99 - OTHER PULMONARY EMBOLISM WITHOUT ACUTE COR PULMONALE
[2018-06-11 12:49] LABS: ANISOCYTOSIS 1+; MACROCYTOSIS 1+; PLATELET ESTIMATE NORMAL; TARGET CELLS 2+
[2018-06-11] MEDS ORDERED: PT OWN MED DRAWER 7, Y5N ONE (17:32)
--- NOTE | 2018-06-11 18:40 | PN ---
Progress Note, Physician History of Present Illness: No longer has leg pain. No specific complaints but keeps saying "I don't know what's going on with my body." - Current Medication List Current Medications: Active Medications Acetaminophen (Tylenol -) 650 mg PO Q4H PRN PRN Reason: PAIN Last Admin: 06/10/18 03:20 Dose: 650 mg Albuterol Sulfate (Ventolin 0.083% Nebulizer Soln -) 1 amp NEB Q4H PRN PRN Reason: SHORT OF BREATH/WHEEZING Albuterol/Ipratropium (Duoneb -) 1 amp NEB RQID [facility] Last Admin: 06/11/18 17:19 Dose: 1 amp Albuterol/Ipratropium (Duoneb -) 1 amp NEB Q6H PRN PRN Reason: SHORTNESS OF BREATH Apixaban (Eliquis -) 5 mg PO BID [facility] Last Admin: 06/11/18 09:45 Dose: 5 mg Atenolol (Tenormin -) 25 mg PO DAILY [facility] Last Admin: 06/11/18 09:45 Dose: 25 mg Budesonide/Formoterol Fumarate (Symbicort 160/4.5mcg -) 1 puff IH BID [facility] Last Admin: 06/11/18 09:46 Dose: 1 puff Docusate Sodium (Colace -) 100 mg PO BID PRN PRN Reason: CONSTIPATION Folic Acid (Folic Acid -) 1 mg PO DAILY [facility] Last Admin: 06/11/18 09:45 Dose: 1 mg Gabapentin (Neurontin -) 300 mg PO BID [facility] Last Admin: 06/11/18 09:45 Dose: 300 mg Insulin Aspart (Novolog Vial Sliding Scale -) 1 vial SQ Q4HWA [facility]; Protocol Last Admin: 06/11/18 16:27 Dose: 4 units Insulin Detemir (Levemir Vial) 10 units SQ [facility] Last Admin: 06/10/18 22:33 Dose: 10 units Losartan Potassium (Cozaar -) 50 mg PO DAILY [facility] Last Admin: 06/11/18 09:45 Dose: 50 mg Montelukast Sodium (Singulair -) 10 mg PO HS [facility] Last Admin: 06/10/18 22:32 Dose: 10 mg Nystatin (Nystatin Oral Suspension -) 500,000 units PO Q6HPO [facility] Last Admin: 06/11/18 17:32 Dose: 500,000 units Oxycodone HCl (Roxicodone -) 30 mg PO Q6H PRN PRN Reason: PAIN LEVEL 7 - 10 Last Admin: 06/11/18 02:14 Dose: 30 mg Oxycodone HCl (Oxycontin -) 40 mg PO BID [facility] Last Admin: 06/11/18 09:45 Dose: 40 mg - Objective Vital Signs: Vital Signs Temperature 98.8 F 06/11/18 13:22 Pulse Rate 105 H 06/11/18 13:22 Respiratory Rate 06/11/18 13:22 Blood Pressure 110/58 L 06/11/18 13:22 O2 Sat by Pulse Oximetry (%) 96 06/11/18 07:50 Constitutional: Yes: No Distress, Calm Eyes: Yes: Conjunctiva Clear Cardiovascular: Yes: Regular Rate and Rhythm Respiratory: Yes: Regular, CTA Bilaterally Gastrointestinal: Yes: Vomiting. No: Tenderness Neurological: Yes: Confusion Labs: CBC, BMP 06/11/18 05:35 06/11/18 05:35 INR, PTT INR 1.06 (0.83-1.09) 06/06/18 20:25 Assessment/Plan 73 year old woman with hx of COPD, Asthma, PE on eliquis, Hgb SC disease admitted with generalized weakness and found to have hyperglycemia and GUCCI. Leg pain resolved. Appears to be confused. Agree with neurology eval. WBC trending down. Will continue to follow
[2018-06-11] MEDS: MONTELUKAST NA 10 MG TABLET PO SCH (21:41)
[2018-06-11] MEDS: INSULIN (LEVEMIR) 100 UNITS/ML UNITS SQ SCH (21:50)
[2018-06-12] MEDS: NYSTATIN 500,000 UNITS/5 ML SUSPENSION PO SCH ×4 (00:26→19:07)
[2018-06-12] MEDS: oxyCODONE HCL 5 MG TABLET PO PRN (01:39)
[2018-06-12 05:11] LABS: SERUM IRON SATURATION 37 % (15-55); TOTAL IRON BINDING CAPACITY 250 ug/dL (250-450); UIBC 158 ug/dL (118-369)
[2018-06-12] MEDS: INSULIN SLIDING SCALE (NOVOLOG) 1 VIAL SQ SCH ×4 (05:16→21:32)
[2018-06-12 06:59] LABS: ALBUMIN 2.7 g/dl (3.4-5.0); ALK PHOS 87 U/L (45-117); ANION GAP 7 MMOL/L (8-16); BILIRUBIN,TOTAL 0.7 mg/dL (0.2-1); BLOOD UREA NITROGEN 12 mg/dL (7-18); CALCIUM 8.6 mg/dL (8.5-10.1); CHLORIDE 107 mmol/L (98-107); CO2 30 mmol/L (21-32); CREATININE 0.9 mg/dL (0.55-1.3); GLUCOSE,RANDOM 156 mg/dL (74-106); POTASSIUM 4.3 mmol/L (3.5-5.1); SGOT/AST 17 U/L (15-37); SGPT/ALT 10 U/L (13-61); SODIUM 143 mmol/L (136-145); TOT PROT 6.1 g/dl (6.4-8.2)
[2018-06-12] MEDS: ALBUTEROL SO4 2.5/IPRATROPIUM 0.5 INH SOL 3 ML VIAL.NEB. NEB PRN ×2 (07:30→20:53)
[2018-06-12 07:43] LABS: HEMATOCRIT 28.3 % (32.4-45.2); HEMOGLOBIN 9.4 GM/dL (10.7-15.3); MCH 27.9 pg (25.7-33.7); MCHC 33.2 g/dl (32.0-36.0); MEAN PLT VOLUME 8.9 fl (7.5-11.1); PLATELET COUNT 176 K/MM3 (134-434); RBC 3.38 M/mm3 (3.60-5.2); RDW 18.8 % (11.6-15.6); WHITE BLOOD COUNT 18.1 K/mm3 (4.0-10.0)
[2018-06-12 09:30] LABS: ADD RBC MORPHOLOGY YES
[2018-06-12] MEDS: ATENOLOL 25 MG TABLET (FP) PO SCH (10:03)
[2018-06-12] MEDS: oxyCODONE HCL 20 MG SUSTAINED ACTING TABLET PO SCH (10:03)
[2018-06-12] MEDS: FOLIC ACID 1 MG TABLET (FP) PO SCH (10:03)
[2018-06-12] MEDS: APIXABAN 5 MG TABLET PO SCH ×2 (10:03→21:29)
[2018-06-12] MEDS: GABAPENTIN 300 MG CAPSULE (FP) PO SCH ×2 (10:03→21:28)
[2018-06-12] MEDS: BUDESONIDE/FORMETEROL FUMARATE 160/4.5 mcg INHALER IH SCH ×2 (10:04→21:46)
[2018-06-12] MEDS: LOSARTAN POTASSIUM 50 MG TABLET (FP) PO SCH (10:04)
--- NOTE | 2018-06-12 11:08 | PN ---
Progress Note (short form) - Note Progress Note: feels well no diarrhea, no frequent bms leg pain has resolved eating well alert and oriented time 3 Vital Signs Period Temp Pulse Resp BP Sys/Mendez Pulse Ox Last 24 Hr 98.3 F-99.7 F 87-105 110-135/58-78 97-97 no thrush cor-rrr lungs clear abd soft,nt ext no edema CBC, BMP 06/12/18 05:30 06/12/18 05:30 Microbiology 06/07/18 08:30 Blood - Peripheral Venous Blood Culture - Preliminary NO GROWTH OBTAINED AFTER 96 HOURS, INCUBATION TO CONTINUE FOR 1 DAYS. 06/07/18 08:30 Blood - Peripheral Venous Blood Culture - Preliminary NO GROWTH OBTAINED AFTER 96 HOURS, INCUBATION TO CONTINUE FOR 1 DAYS. 06/07/18 10:00 Urine - Urine Clean Catch Urine Culture - Final Current Medications Acetaminophen (Tylenol -) 650 mg PO Q4H PRN PRN Reason: PAIN Last Admin: 06/10/18 03:20 Dose: 650 mg Albuterol/Ipratropium (Duoneb -) 1 amp NEB Q6H PRN PRN Reason: SHORTNESS OF BREATH Last Admin: 06/12/18 07:30 Dose: 1 amp Apixaban (Eliquis -) 5 mg PO BID [facility] Last Admin: 06/12/18 10:03 Dose: 5 mg Atenolol (Tenormin -) 25 mg PO DAILY [facility] Last Admin: 06/12/18 10:03 Dose: 25 mg Budesonide/Formoterol Fumarate (Symbicort 160/4.5mcg -) 1 puff IH BID [facility] Last Admin: 06/12/18 10:04 Dose: 1 puff Docusate Sodium (Colace -) 100 mg PO BID PRN PRN Reason: CONSTIPATION Folic Acid (Folic Acid -) 1 mg PO DAILY [facility] Last Admin: 06/12/18 10:03 Dose: 1 mg Gabapentin (Neurontin -) 300 mg PO BID [facility] Last Admin: 06/12/18 10:03 Dose: 300 mg Insulin Aspart (Novolog Vial Sliding Scale -) [facility]; Protocol Last Admin: 06/12/18 10:02 Dose: Not Given Insulin Detemir (Levemir Vial) 10 units SQ [facility] Last Admin: 06/11/18 21:50 Dose: 10 units Losartan Potassium (Cozaar -) 50 mg PO DAILY [facility] Last Admin: 06/12/18 10:04 Dose: 50 mg Montelukast Sodium (Singulair -) 10 mg PO HS [facility] Last Admin: 06/11/18 21:41 Dose: 10 mg Nystatin (Nystatin Oral Suspension -) 500,000 units PO Q6HPO [facility] Last Admin: 06/12/18 05:16 Dose: 500,000 units Oxycodone HCl (Roxicodone -) 30 mg PO Q6H PRN PRN Reason: PAIN LEVEL 7 - 10 Last Admin: 06/12/18 01:39 Dose: 30 mg Oxycodone HCl (Oxycontin -) 40 mg PO BID [facility] Last Admin: 06/12/18 10:03 Dose: 40 mg a/p leukocytosis- reports never normal, slowly trending down, would observe , hematology opinion?-reports baselne around 14k hyperglycemia secondary to steroids-on insulin GUCCI resolved thrush resolved sickle cell anemia-no pain cbc with diff in am Problem List - Problems (1) Leukocytosis Code(s): D72.829 - ELEVATED WHITE BLOOD CELL COUNT, UNSPECIFIED (2) Thrush Code(s): B37.0 - CANDIDAL STOMATITIS (3) GUCCI (acute kidney injury) Code(s): N17.9 - ACUTE KIDNEY FAILURE, UNSPECIFIED (4) Hyperglycemia Code(s): R73.9 - HYPERGLYCEMIA, UNSPECIFIED (5) Sickle cell anemia Code(s): D57.1 - SICKLE-CELL DISEASE WITHOUT CRISIS Qualifiers: Sickle-cell associated disorders: without crisis Qualified Code(s): D57.1 - Sickle-cell disease without crisis
[2018-06-12 12:25] LABS: ANISOCYTOSIS 1+; MACROCYTOSIS 1+; PLATELET ESTIMATE ADEQUATE; TARGET CELLS 2+
--- NOTE | 2018-06-12 12:42 | PN ---
Progress Note, Physician Chief Complaint: patient seen and examined says no more leg pain - Current Medication List Current Medications: Active Medications Acetaminophen (Tylenol -) 650 mg PO Q4H PRN PRN Reason: PAIN Last Admin: 06/10/18 03:20 Dose: 650 mg Albuterol/Ipratropium (Duoneb -) 1 amp NEB Q6H PRN PRN Reason: SHORTNESS OF BREATH Last Admin: 06/12/18 07:30 Dose: 1 amp Apixaban (Eliquis -) 5 mg PO BID [facility] Last Admin: 06/12/18 10:03 Dose: 5 mg Atenolol (Tenormin -) 25 mg PO DAILY [facility] Last Admin: 06/12/18 10:03 Dose: 25 mg Budesonide/Formoterol Fumarate (Symbicort 160/4.5mcg -) 1 puff IH BID [facility] Last Admin: 06/12/18 10:04 Dose: 1 puff Docusate Sodium (Colace -) 100 mg PO BID PRN PRN Reason: CONSTIPATION Folic Acid (Folic Acid -) 1 mg PO DAILY [facility] Last Admin: 06/12/18 10:03 Dose: 1 mg Gabapentin (Neurontin -) 300 mg PO BID [facility] Last Admin: 06/12/18 10:03 Dose: 300 mg Insulin Aspart (Novolog Vial Sliding Scale -) 1 vial SQ Q4HWA [facility]; Protocol Last Admin: 06/12/18 10:02 Dose: Not Given Insulin Detemir (Levemir Vial) 10 units SQ [facility] Last Admin: 06/11/18 21:50 Dose: 10 units Losartan Potassium (Cozaar -) 50 mg PO DAILY [facility] Last Admin: 06/12/18 10:04 Dose: 50 mg Montelukast Sodium (Singulair -) 10 mg PO HS [facility] Last Admin: 06/11/18 21:41 Dose: 10 mg Nystatin (Nystatin Oral Suspension -) 500,000 units PO Q6HPO [facility] Last Admin: 06/12/18 05:16 Dose: 500,000 units Oxycodone HCl (Roxicodone -) 30 mg PO Q6H PRN PRN Reason: PAIN LEVEL 7 - 10 Last Admin: 06/12/18 01:39 Dose: 30 mg Oxycodone HCl (Oxycontin -) 40 mg PO BID [facility] Last Admin: 06/12/18 10:03 Dose: 40 mg - Objective Vital Signs: Vital Signs Temperature 99.0 F 06/12/18 09:00 Pulse Rate 99 H 06/12/18 09:00 Respiratory Rate 18 06/12/18 09:00 Blood Pressure 112/78 06/12/18 09:00 O2 Sat by Pulse Oximetry (%) 97 06/12/18 09:00 Constitutional: Yes: Calm Cardiovascular: Yes: Regular Rate and Rhythm, S1, S2 Respiratory: Yes: CTA Bilaterally Gastrointestinal: Yes: Normal Bowel Sounds, Soft Neurological: Yes: Alert, Oriented Labs: CBC, BMP 06/12/18 05:30 06/12/18 05:30 INR, PTT INR 1.06 (0.83-1.09) 06/06/18 20:25 Problem List - Problems (1) GUCCI (acute kidney injury) Assessment/Plan: renal sono renal eval Code(s): N17.9 - ACUTE KIDNEY FAILURE, UNSPECIFIED (2) Diabetes Assessment/Plan: bgm hgba1c levemir 10 units Code(s): E11.9 - TYPE 2 DIABETES MELLITUS WITHOUT COMPLICATIONS (3) Leukocytosis Assessment/Plan: wbc still elevated trending down check CBC in morning Microbiology 06/07/18 10:00 Urine - Urine Clean Catch Urine Culture - Final 06/07/18 08:30 Blood - Peripheral Venous Blood Culture - Preliminary NO GROWTH OBTAINED AFTER 24 HOURS, INCUBATION TO CONTINUE FOR 4 DAYS. 06/07/18 08:30 Blood - Peripheral Venous Blood Culture - Preliminary NO GROWTH OBTAINED AFTER 24 HOURS, INCUBATION TO CONTINUE FOR 4 DAYS. Code(s): D72.829 - ELEVATED WHITE BLOOD CELL COUNT, UNSPECIFIED (4) Thrush Assessment/Plan: nystatin Code(s): B37.0 - CANDIDAL STOMATITIS (5) Pulmonary embolism Assessment/Plan: eliquis Code(s): I26.99 - OTHER PULMONARY EMBOLISM WITHOUT ACUTE COR PULMONALE
[2018-06-12 13:59] LABS: LDH 300 U/L (84-246)
--- NOTE | 2018-06-12 14:20 | PN ---
Physical Exam: SUBJECTIVE: Patient seen and examined patient resting in bed NAD, afebrile hemodynamically stable no acute events. feels well denies further foot pain. states that she was not confused last night but was rather "messing with the nurse on purpose". denies abdominal pain n/v/d/c elizabeth bone pain, h/a. OBJECTIVE: Vital Signs Period Temp Pulse Resp BP Sys/Mendez Pulse Ox Last 24 Hr 98.3 F-99.7 F 87-99 18-18 110-135/60-78 97-97 GENERAL: The patient is awake, alert, and fully oriented, in no acute distress. HEAD: Normal with no signs of trauma. EYES: PERRL, extraocular movements intact, sclera anicteric, conjunctiva clear. ENT: moist mucous membranes. NECK: supple. LUNGS: Breath sounds equal, clear to auscultation bilaterally HEART: Regular rate and rhythm, S1, S2 ABDOMEN: Soft, nontender, nondistended, normoactive bowel sounds EXTREMITIES: 2+ pulses, warm, well-perfused, no edema. NEUROLOGICAL: Cranial nerves II through XII grossly intact. Normal speech, gait not observed. PSYCH: Normal mood, normal affect. SKIN: Warm, dry Laboratory Results - last 24 hr 06/10/18 06/11/18 06/11/18 12:55 05:35 16:16 WBC RBC Hgb Hct MCV MCH MCHC RDW Plt Count MPV Total Counted Neutrophils % Neutrophils % (Manual) 57.6 Band Neutrophils % 0.0 Lymphocytes % Lymphocytes % (Manual) 36.4 D Monocytes % (Manual) 1 L Eosinophils % (Manual) 3.0 D Basophils % (Manual) 0.0 Myelocytes % (Man) 0 Promyelocytes % (Man) 0 Blast Cells % (Manual) 0 Nucleated RBC % Metamyelocytes 0 D Hypochromia 0 Platelet Estimate Normal Polychromasia 1+ Poikilocytosis 0 Anisocytosis 1+ Microcytosis 1+ Macrocytosis 1+ Target Cells 2+ Schistocytes 1+ Retic Count Sodium Potassium Chloride Carbon Dioxide Anion Gap BUN Creatinine Creat Clearance w eGFR POC Glucometer 159 Random Glucose Calcium Iron 92 TIBC 250 Iron Saturation 37 Total Bilirubin AST ALT Alkaline Phosphatase LD Total Total Protein Albumin 06/11/18 06/12/18 06/12/18 21:47 05:15 05:30 WBC 18.1 H RBC 3.38 L Hgb 9.4 L Hct 28.3 L MCV 84.0 MCH 27.9 MCHC 33.2 RDW 18.8 H Plt Count 176 MPV 8.9 Total Counted 100 Neutrophils % No Result Required. Neutrophils % (Manual) 63.0 Band Neutrophils % 1.0 Lymphocytes % No Result Required. Lymphocytes % (Manual) 23.0 D Monocytes % (Manual) 8 D Eosinophils % (Manual) 5.0 H Basophils % (Manual) Myelocytes % (Man) Promyelocytes % (Man) Blast Cells % (Manual) Nucleated RBC % 4 H Metamyelocytes Hypochromia Platelet Estimate Adequate Polychromasia Poikilocytosis Anisocytosis 1+ Microcytosis 1+ Macrocytosis 1+ Target Cells 2+ Schistocytes 1+ Retic Count Sodium Potassium Chloride Carbon Dioxide Anion Gap BUN Creatinine Creat Clearance w eGFR POC Glucometer 156 148 Random Glucose Calcium Iron TIBC Iron Saturation Total Bilirubin AST ALT Alkaline Phosphatase LD Total Total Protein Albumin 06/12/18 06/12/18 05:30 05:30 WBC RBC Hgb Hct MCV MCH MCHC RDW Plt Count MPV Total Counted Neutrophils % Neutrophils % (Manual) Band Neutrophils % Lymphocytes % Lymphocytes % (Manual) Monocytes % (Manual) Eosinophils % (Manual) Basophils % (Manual) Myelocytes % (Man) Promyelocytes % (Man) Blast Cells % (Manual) Nucleated RBC % Metamyelocytes Hypochromia Platelet Estimate Polychromasia Poikilocytosis Anisocytosis Microcytosis Macrocytosis Target Cells Schistocytes Retic Count 1.60 H D Sodium 143 Potassium 4.3 Chloride 107 Carbon Dioxide 30 Anion Gap 7 L BUN 12 Creatinine 0.9 Creat Clearance w eGFR 61.21 POC Glucometer Random Glucose 156 H Calcium 8.6 Iron TIBC Iron Saturation Total Bilirubin 0.7 AST 17 ALT 10 L Alkaline Phosphatase 87 LD Total 300 H Total Protein 6.1 L Albumin 2.7 L Active Medications Generic Name Dose Route Start Last Admin Trade Name Freq PRN Reason Stop Dose Admin Acetaminophen 650 mg 06/10/18 03:14 06/10/18 03:20 Tylenol - PO 650 mg Q4H PRN Administration PAIN Albuterol/Ipratropium 1 amp 06/07/18 17:13 06/12/18 07:30 Duoneb - NEB 1 amp Q6H PRN Administration SHORTNESS OF BREATH Apixaban 5 mg 06/07/18 10:00 06/12/18 10:03 Eliquis - PO 5 mg BID [facility] Administration Atenolol 25 mg 06/07/18 17:15 06/12/18 10:03 Tenormin - PO 25 mg DAILY [facility] Administration Budesonide/Formoterol Fumarate 1 puff 06/07/18 10:00 06/12/18 10:04 Symbicort 160/4.5mcg - IH 1 puff BID [facility] Administration Docusate Sodium 100 mg 06/07/18 17:13 Colace - PO BID PRN CONSTIPATION Folic Acid 1 mg 06/07/18 10:00 06/12/18 10:03 Folic Acid - PO 1 mg DAILY [facility] Administration Gabapentin 300 mg 06/07/18 22:00 06/12/18 10:03 Neurontin - PO 300 mg BID [facility] Administration Insulin Aspart 1 vial 06/07/18 12:00 06/12/18 12:59 Novolog Vial Sliding Scale - SQ 4 units Q4HWA [facility] Administration Protocol Insulin Detemir 10 units 06/08/18 22:00 06/11/18 21:50 Levemir Vial SQ 10 units HS [facility] Administration Losartan Potassium 50 mg 06/07/18 17:15 06/12/18 10:04 Cozaar - PO 50 mg DAILY [facility] Administration Montelukast Sodium 10 mg 06/07/18 22:00 06/11/18 21:41 Singulair - PO 10 mg HS [facility] Administration Nystatin 500,000 units 06/07/18 18:00 06/12/18 05:16 Nystatin Oral Suspension - PO 500,000 units Q6HPO [facility] Administration Oxycodone HCl 30 mg 06/08/18 15:18 06/12/18 01:39 Roxicodone - PO 30 mg Q6H PRN Administration PAIN LEVEL 7 - 10 Oxycodone HCl 40 mg 06/09/18 10:00 06/12/18 10:03 Oxycontin - PO 40 mg BID [facility] Administration ASSESSMENT/PLAN: This is a 73 yp F with PMH of Hgb SC disease, COPD, Asthma, PE on eliquis, admitted with generalized weakness and found to have hyperglycemia and GUCCI. -RLE pain resolved -leukocytosis back up to 18.1 -Currently AAOx3, will follow official neuro eval -h/h dropping 9.4 today -patient hemolyzing emily +, LDH high; trend LDH Problem List - Problems (1) Sickle cell anemia Code(s): D57.1 - SICKLE-CELL DISEASE WITHOUT CRISIS Qualifiers: Sickle-cell associated disorders: without crisis Qualified Code(s): D57.1 - Sickle-cell disease without crisis (2) Sickle cell crisis Code(s): D57.00 - HB-SS DISEASE WITH CRISIS, UNSPECIFIED Visit type - Emergency Visit Emergency Visit: Yes ED Registration Date: 06/07/18 Care time: The patient presented to the Emergency Department on the above date and was hospitalized for further evaluation of their emergent condition. - New Patient This patient is new to me today: Yes Date on this admission: 06/12/18 - Critical Care Critical Care patient: No - Discharge Referral Referred to [facility] Med P.C.: No
--- NOTE | 2018-06-12 14:58 | DS ---
Physical Examination Vital Signs: Vital Signs Temperature 99.0 F 06/12/18 09:00 Pulse Rate 99 H 06/12/18 09:00 Respiratory Rate 18 06/12/18 09:00 Blood Pressure 112/78 06/12/18 09:00 O2 Sat by Pulse Oximetry (%) 97 06/12/18 09:00 Constitutional: Yes: Calm Cardiovascular: Yes: Regular Rate and Rhythm, S1, S2 Respiratory: Yes: CTA Bilaterally Gastrointestinal: Yes: Normal Bowel Sounds, Soft Edema: No Neurological: Yes: Alert Labs: CBC, BMP 06/12/18 05:30 06/12/18 05:30 Discharge Summary Reason For Visit: ACUTE KIDNEY INJURY Current Active Problems GUCCI (acute kidney injury) (Acute) Diabetes (Acute) Hyperglycemia (Acute) Lethargy (Acute) Leukocytosis (Acute) Thrush (Acute) Hospital Course: - Primary Care Physician PCP: Javed Wilkinson - Admission Chief Complaint: Lightheadedness History of Present Illness: This is a 73 y/o woman with a PMHx of COPD (home O2), HTN, 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 recent admission COPD Exacerbation 05/21-. Who presents to the ED with Lightheadedness, weakness, and diarrhea x 1 day. The patient's who was at bedside reports that the patient has had loose stools and had generalized weakness. Per the , patient is currently still taking Ceftin and Prednisone since discharge. Per the Patient' s denies fever, chills, cough, IVEY, CP, palpitations, AP, N/V, constipation, melena, hematochezia, dysuria. admitted to telemetry GUCCI, renal sono- normal kidney no hydronephrosis DM levemir PE on eliquis trush nystatin leukocytosis secondary to steroids stop abx Condition: Fair - Instructions - Home Medications Comprehensive Discharge Medication List: Ambulatory Orders Folic Acid - 1 mg PO DAILY 02/11/13 Docusate Sodium [Colace -] 100 mg PO DAILY 04/06/15 Montelukast Na [Singulair -] 10 mg PO HS 04/06/15 Budesonide/Formeterol Fumarate [SYMBICORT 160/4.5mcg -] 1 inh PO BID 08/19/15 Cholecalciferol (Vitamin D3) [Vitamin D3 -] 1,000 unit PO DAILY 08/19/15 Ipratropium/Albuterol Sulfate [Combivent Respimat 20-100 Mcg] 1 inh IH Q4H PRN 08/19/15 Acetaminophen [Tylenol .Extra-Strength -] 1,000 mg PO Q8H PRN #0 tablet Albuterol Sulfate [Proair Hfa] 2 inh IH QID PRN 01/21/18 Gabapentin 300 mg PO HS 01/21/18 Losartan Potassium [Cozaar -] 50 mg PO DAILY 01/21/18 Cefuroxime Axetil [Ceftin -] 500 mg PO BID #10 tablet MDD 2 01/26/18 oxyCODONE HCL [Roxybond] 30 mg PO QID PRN 05/21/18 oxyCODONE SR [Oxycontin] 40 mg PO BID 05/21/18 Acetaminophen [Tylenol .Regular Strength -] 650 mg PO Q4H PRN tablet 05/26/18 Albuterol 0.083% Nebulizer Marichuy [Ventolin 0.083% Nebulizer Soln -] 1 amp NEB Q4H PRN amp 05/26/18 Albuterol 2.5/Ipratropium 0.5 [Duoneb -] 1 amp NEB RQID amp 05/26/18 Apixaban [Eliquis -] 5 mg PO BID tablet 05/26/18 Apixaban [Eliquis -] 5 mg PO BID #30 tablet MDD 2 05/26/18 Cefuroxime Axetil [Ceftin -] 500 mg PO BID #14 tablet MDD 2 05/26/18 Duloxetine HCl [Cymbalta -] 30 mg PO BID capsule. 05/26/18 Folic Acid - 1 mg PO DAILY tablet 05/26/18 Guaifenesin Dm [Robitussin Dm -] 10 ml PO Q4H PRN cup 05/26/18 predniSONE [Deltasone -] 10 mg PO DAILY #30 tablet 05/26/18 predniSONE [Deltasone -] See Taper PO DAILY #30 tablet 05/27/18 Atenolol [Tenormin -] 25 mg PO DAILY 06/07/18 Hydrochlorothiazide 12.5 mg PO BID 06/07/18
--- NOTE | 2018-06-12 15:53 | PN ---
Progress Note (short form) - Note Progress Note: Renal follow up for GUCCI Pt seen and examined at the bedside awake and alert no acute complains tolerating oral diet no pain in legs, sob, cp, abd pain Vital Signs Temperature 98.9 F 06/12/18 14:00 Pulse Rate 88 06/12/18 14:00 Respiratory Rate 20 06/12/18 14:00 Blood Pressure 138/60 06/12/18 14:00 O2 Sat by Pulse Oximetry (%) 97 06/12/18 09:00 Intake & Output 06/09/18 06/10/18 06/11/18 06/12/18 23:59 23:59 23:59 23:59 Intake Total 1590 3176 1513 10 Output Total 2 Balance 1588 3176 1513 10 Weight 79.379 kg NAD awake and alert neck supple, dry MM, no JVD RRR, no M/R CTA soft NT/ND no LE edema CBC, BMP 06/12/18 05:30 06/12/18 05:30 Current Medications Acetaminophen (Tylenol -) 650 mg PO Q4H PRN PRN Reason: PAIN Last Admin: 06/10/18 03:20 Dose: 650 mg Albuterol/Ipratropium (Duoneb -) 1 amp NEB Q6H PRN PRN Reason: SHORTNESS OF BREATH Last Admin: 06/12/18 07:30 Dose: 1 amp Apixaban (Eliquis -) 5 mg PO BID [facility] Last Admin: 06/12/18 10:03 Dose: 5 mg Atenolol (Tenormin -) 25 mg PO DAILY [facility] Last Admin: 06/12/18 10:03 Dose: 25 mg Budesonide/Formoterol Fumarate (Symbicort 160/4.5mcg -) 1 puff IH BID [facility] Last Admin: 06/12/18 10:04 Dose: 1 puff Docusate Sodium (Colace -) 100 mg PO BID PRN PRN Reason: CONSTIPATION Folic Acid (Folic Acid -) 1 mg PO DAILY [facility] Last Admin: 06/12/18 10:03 Dose: 1 mg Gabapentin (Neurontin -) 300 mg PO BID [facility] Last Admin: 06/12/18 10:03 Dose: 300 mg Insulin Aspart (Novolog Vial Sliding Scale -) 1 vial SQ Q4HWA [facility]; Protocol Last Admin: 06/12/18 12:59 Dose: 4 units Insulin Detemir (Levemir Vial) 10 units SQ HS [facility] Last Admin: 06/11/18 21:50 Dose: 10 units Losartan Potassium (Cozaar -) 50 mg PO DAILY [facility] Last Admin: 06/12/18 10:04 Dose: 50 mg Montelukast Sodium (Singulair -) 10 mg PO HS [facility] Last Admin: 06/11/18 21:41 Dose: 10 mg Nystatin (Nystatin Oral Suspension -) 500,000 units PO Q6HPO [facility] Last Admin: 06/12/18 12:14 Dose: Not Given Oxycodone HCl (Roxicodone -) 30 mg PO Q6H PRN PRN Reason: PAIN LEVEL 7 - 10 Last Admin: 06/12/18 01:39 Dose: 30 mg Oxycodone HCl (Oxycontin -) 40 mg PO BID [facility] Last Admin: 06/12/18 10:03 Dose: 40 mg 73 year old woman with hx of COPD, Asthma, PE on eliquis, sickle cell disease presented with generalized weakness and found to have hyperglycemia and GUCCI. #GUCCI now reolving from volume depletion in setting of hyperglycemia #Leukocytosis from steroids vs. infection #Hyperglycemia #COPD #PE on A/C Renal function improve and stable can discontinue IVF continue Loartan discharge planning as per primary Enrique Flores DO
--- NOTE | 2018-06-12 16:48 | PN ---
Teaching Attending Note Name of Resident: Violette Fuller ATTENDING PHYSICIAN STATEMENT I saw and evaluated the patient. I reviewed the resident's note and discussed the case with the resident. I agree with the resident's findings and plan as documented. ASSESSMENT AND PLAN: 73 y/o patient with SC disease Leukocytosis probably related to long course of high dose steroids superimposed on high baseline WBC count in sckle cell patients. cuultures negative GUCCI improved High WBC -- ? SC disease/ ? steroid use recently dropping HGb --hemolysis monitor LDH Praful + check stool occult check CXR will follow
--- NOTE | 2018-06-12 17:39 | CONSULT ---
Consult - text type - Consultation Consultation Note: NEUROLOGY CONSULT GREATLY APPRECIATED: Events reviewed and discussed with CRISTELA Ramirez. Patient examined with at bedside. This 73 yo RH woman has pmhx COPD, HTN, PE/DVT (on apixiban) Sickle Cell Disease, depression, chronic LBP, urinary incontinence x 12 years. Maintained on: folic acid, singular, symbicort, gabapentin, losartan, oxycodone 30 mg QID, apixaban, duloxetine. OA- s/p B/L THR's. Surgical hx includes bladder mesh and B/L THR. Chronic gait dysfunction x many years ("since her hips") requiring assist with ambulation, cooking, cleaning, bills, groceries. Was discharged after COPD exacerbation 1 week ago on cefuroxime and prednisone taper. She returned on 06/07 with complaints of "lightheadedness" and was found to be dehydrated and with random BS > 400. A1c= 8.0%. Now requiring insulin. Head CT in ED (reviewed): Mild atrophy. Recent MRI (12/25, reviewed): Mild diffuse atrophy and ex vacuo ventricular enlargement with scattered microvascular changes WBC 31.6 -> 18.1. Recent UA (06/09) WBC= 36. UC and blood cultures x 2 neg. B12= 591 pg% ROS: chronic low back pain with radiation into both legs and unable to walk one block. One fall approximately 2 years ago. Notes some forgetfulness with misplacing items and names, attributed to " getting older." Intermittent tremor x "many years." BINA: T99.7. II/ NAS P region. No bruit. Central line in R neck. Neck supple. Neg SLR. NEURO: Awake, alert. OX "[facility]." Reports "September 12" corrected to "June 12"2018. "Savage" or "Obama." 04/09 recall @ 3. + glabella CNII-CNXII: EOM's full without nystagmus. Full parks. No facial. Motor: Mild right drift. Strength normal. Reflexes brisk throughout including AJ's. Sl reduced RA's (R>L). Cogwheeling R>L. Toes downgoing. Coordination: No FTN dystaxia Sensation: Reduced vibration in feet. Romberg - Gait: Flexed, slight shuffle. 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 Will worsen with Toxic-Metabolic Encephalopathy (initially hyperglycemia and dehydration, now possible UTI). Suggest: Await ID Consult and urine C&S Check TSH, RPR PT assessment of gait and Rx with cane/walker Continue current regimen Neuro f/u as out patient. Thank you very much, Roshan Holt MD
[2018-06-12] MEDS: ACETAMINOPHEN 325 MG TABLET (FP) PO PRN (21:28)
[2018-06-12] MEDS: MONTELUKAST NA 10 MG TABLET PO SCH (21:29)
[2018-06-12] MEDS: INSULIN (LEVEMIR) 100 UNITS/ML UNITS SQ SCH (21:32)
[2018-06-13] MEDS: NYSTATIN 500,000 UNITS/5 ML SUSPENSION PO SCH ×4 (00:20→17:17)
[2018-06-13] MEDS: ALBUTEROL SO4 2.5/IPRATROPIUM 0.5 INH SOL 3 ML VIAL.NEB. NEB PRN ×2 (07:32→21:10)
[2018-06-13] MEDS: INSULIN SLIDING SCALE (NOVOLOG) 1 VIAL SQ SCH ×5 (07:51→22:25)
[2018-06-13 09:10] LABS: HEMOGLOBIN 9.2 GM/dL (10.7-15.3); MCH 27.8 pg (25.7-33.7); MCHC 32.9 g/dl (32.0-36.0); MEAN CELL VOLUME 84.5 fl (80-96); MEAN PLT VOLUME 8.7 fl (7.5-11.1); PLATELET COUNT 176 K/MM3 (134-434); RBC 3.31 M/mm3 (3.60-5.2); RDW 18.9 % (11.6-15.6); WHITE BLOOD COUNT 16.7 K/mm3 (4.0-10.0)
[2018-06-13] MEDS: GABAPENTIN 300 MG CAPSULE (FP) PO SCH ×2 (09:37→22:22)
[2018-06-13] MEDS: LOSARTAN POTASSIUM 50 MG TABLET (FP) PO SCH (09:37)
[2018-06-13] MEDS: APIXABAN 5 MG TABLET PO SCH ×2 (09:37→22:22)
[2018-06-13] MEDS: FOLIC ACID 1 MG TABLET (FP) PO SCH (09:37)
[2018-06-13] MEDS: ATENOLOL 25 MG TABLET (FP) PO SCH (09:37)
[2018-06-13] MEDS: BUDESONIDE/FORMETEROL FUMARATE 160/4.5 mcg INHALER IH SCH ×2 (09:38→22:23)
[2018-06-13] MEDS: oxyCODONE HCL 20 MG SUSTAINED ACTING TABLET PO SCH ×2 (11:06→22:22)
[2018-06-13 11:40] LABS: ANISOCYTOSIS 1+; MACROCYTOSIS 0; PLATELET ESTIMATE NORMAL; TARGET CELLS 2+
--- NOTE | 2018-06-13 12:53 | PN ---
Progress Note (short form) - Note Progress Note: NEUROLOGY PROGRESS: Pt reports hx of headaches in her 20s attributed to "sinus problem," which also prompted her to seek dentist. Resolved around 41 with menopause. 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 Was told she "broke" her back in many locations, and was going to be operated on , but instead had both hips done in 30s. Noted initial relief of pain after surgery, which since returned, requiring high dose pain management and disability. Reports recent vivid dreams and sometimes will accidentally hit her while asleep. WBC 18.1-> 16.7 TSH= 0.16; BS= 150s. BINA: T98.8. Central line in R neck. NEURO: Awake, alert. OX "[facility]." "June 15"2018. "Obama" corrected to "Trump. 04/09 recall @ 3. + glabella CNII-CNXII: Normal. Motor: Mild right drift. Strength normal. Reflexes brisk throughout including AJ's. Sl reduced RA's (R>L). Cogwheeling R>L. Toes downgoing. Coordination: No FTN dystaxia Sensation: Reduced vibration in feet. Romberg - Gait: Flexed, slight shuffle. 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 Will worsen with Toxic-Metabolic Encephalopathy (now possible UTI). Suggest: Await ID Consult and urine C&S Rx for hyperthyroidism as indicated PT assessment of gait and Rx with cane/walker Continue current regimen Neuro f/u as out patient. Thank you very much, Roshan Holt MD
--- NOTE | 2018-06-13 15:46 | PN ---
Physical Exam: SUBJECTIVE: Patient seen and examined patient resting in bed NAD, afebrile hemodynamically stable. Had multiple episodes of nonbloody vomiting today after meals, w/o nausea or abdominal pain. denies further foot pain. denies d/c, bone pain, h/a. OBJECTIVE: Vital Signs Period Temp Pulse Resp BP Sys/Mednez Pulse Ox Last 24 Hr 97.6 F-99.4 F 82-110 20-20 123-140/63-82 95-99 GENERAL: The patient is awake, alert, and fully oriented, in no acute distress. HEAD: Normal with no signs of trauma. EYES: PERRL, extraocular movements intact, sclera anicteric, conjunctiva clear. ENT: moist mucous membranes. NECK: supple. LUNGS: Breath sounds equal, clear to auscultation bilaterally HEART: Regular rate and rhythm, S1, S2 ABDOMEN: Soft, nontender, nondistended, normoactive bowel sounds EXTREMITIES: 2+ pulses, warm, well-perfused, no edema. NEUROLOGICAL: Cranial nerves II through XII grossly intact. Normal speech, gait not observed. PSYCH: Normal mood, normal affect. SKIN: Warm, dry Laboratory Results - last 24 hr 06/12/18 06/12/18 06/12/18 12:00 12:56 13:20 WBC RBC Hgb Hct MCV MCH MCHC RDW Plt Count MPV Absolute Neuts (auto) Neutrophils % Neutrophils % (Manual) Band Neutrophils % Lymphocytes % Lymphocytes % (Manual) Monocytes % (Manual) Eosinophils % (Manual) Basophils % (Manual) Myelocytes % (Man) Promyelocytes % (Man) Blast Cells % (Manual) Nucleated RBC % Metamyelocytes Hypochromia Platelet Estimate Polychromasia Poikilocytosis Anisocytosis Microcytosis Macrocytosis Target Cells Haptoglobin 240 H POC Glucometer 164 LD Total Vitamin B12 TSH RPR Titer Direct Antiglob Test Positive H 06/12/18 06/13/18 06/13/18 21:29 05:15 05:40 WBC 16.7 H RBC 3.31 L Hgb 9.2 L Hct 28.0 L MCV 84.5 MCH 27.8 MCHC 32.9 RDW 18.9 H Plt Count 176 MPV 8.7 Absolute Neuts (auto) 9.6 H Neutrophils % No Result Required. Neutrophils % (Manual) 65.1 Band Neutrophils % 0.0 Lymphocytes % No Result Required. Lymphocytes % (Manual) 29.1 D Monocytes % (Manual) 4 Eosinophils % (Manual) 1.9 Basophils % (Manual) 0.0 Myelocytes % (Man) 0 Promyelocytes % (Man) 0 Blast Cells % (Manual) 0 Nucleated RBC % 2 H Metamyelocytes 0 Hypochromia 0 Platelet Estimate Normal Polychromasia 1+ Poikilocytosis 1+ Anisocytosis 1+ Microcytosis 1+ Macrocytosis 0 Target Cells 2+ Haptoglobin POC Glucometer 145 126 LD Total Vitamin B12 TSH RPR Titer Direct Antiglob Test 06/13/18 06/13/18 06/13/18 05:40 05:40 11:10 WBC RBC Hgb Hct MCV MCH MCHC RDW Plt Count MPV Absolute Neuts (auto) Neutrophils % Neutrophils % (Manual) Band Neutrophils % Lymphocytes % Lymphocytes % (Manual) Monocytes % (Manual) Eosinophils % (Manual) Basophils % (Manual) Myelocytes % (Man) Promyelocytes % (Man) Blast Cells % (Manual) Nucleated RBC % Metamyelocytes Hypochromia Platelet Estimate Polychromasia Poikilocytosis Anisocytosis Microcytosis Macrocytosis Target Cells Haptoglobin POC Glucometer 164 LD Total 334 H Vitamin B12 613 TSH 0.16 L RPR Titer Nonreactive Direct Antiglob Test 06/13/18 13:16 WBC RBC Hgb Hct MCV MCH MCHC RDW Plt Count MPV Absolute Neuts (auto) Neutrophils % Neutrophils % (Manual) Band Neutrophils % Lymphocytes % Lymphocytes % (Manual) Monocytes % (Manual) Eosinophils % (Manual) Basophils % (Manual) Myelocytes % (Man) Promyelocytes % (Man) Blast Cells % (Manual) Nucleated RBC % Metamyelocytes Hypochromia Platelet Estimate Polychromasia Poikilocytosis Anisocytosis Microcytosis Macrocytosis Target Cells Haptoglobin POC Glucometer 122 LD Total Vitamin B12 TSH RPR Titer Direct Antiglob Test Active Medications Generic Name Dose Route Start Last Admin Trade Name Freq PRN Reason Stop Dose Admin Acetaminophen 650 mg 06/10/18 03:14 06/12/18 21:28 Tylenol - PO 650 mg Q4H PRN Administration PAIN Albuterol/Ipratropium 1 amp 06/07/18 17:13 06/13/18 07:32 Duoneb - NEB 1 amp Q6H PRN Administration SHORTNESS OF BREATH Apixaban 5 mg 06/07/18 10:00 06/13/18 09:37 Eliquis - PO 5 mg BID SORAYA Administration Atenolol 25 mg 06/07/18 17:15 06/13/18 09:37 Tenormin - PO 25 mg DAILY SORAYA Administration Budesonide/Formoterol Fumarate 1 puff 06/07/18 10:00 06/13/18 09:38 Symbicort 160/4.5mcg - IH 1 puff BID SORAYA Administration Docusate Sodium 100 mg 06/07/18 17:13 Colace - PO BID PRN CONSTIPATION Folic Acid 1 mg 06/07/18 10:00 06/13/18 09:37 Folic Acid - PO 1 mg DAILY SORAYA Administration Gabapentin 300 mg 06/07/18 22:00 06/13/18 09:37 Neurontin - PO 300 mg BID SORAYA Administration Insulin Aspart 1 vial 06/07/18 12:00 06/13/18 13:17 Novolog Vial Sliding Scale - SQ Not Given Q4HWA [facility] Protocol Insulin Detemir 10 units 06/08/18 22:00 06/12/18 21:32 Levemir Vial SQ 10 units HS SORAYA Administration Losartan Potassium 50 mg 06/07/18 17:15 06/13/18 09:37 Cozaar - PO 50 mg DAILY SORAYA Administration Montelukast Sodium 10 mg 06/07/18 22:00 06/12/18 21:29 Singulair - PO 10 mg HS SORAYA Administration Nystatin 500,000 units 06/07/18 18:00 06/13/18 13:14 Nystatin Oral Suspension - PO 500,000 units Q6HPO SORAYA Administration Oxycodone HCl 30 mg 06/08/18 15:18 06/12/18 01:39 Roxicodone - PO 30 mg Q6H PRN Administration PAIN LEVEL 7 - 10 Oxycodone HCl 40 mg 06/13/18 11:00 06/13/18 11:06 Oxycontin - PO 40 mg BID SORAYA Administration ASSESSMENT/PLAN: This is a 73 yp F with PMH of Hgb SC disease, COPD, Asthma, PE on eliquis, admitted with generalized weakness and found to have hyperglycemia and GUCCI. SC disease r/o crisis vomiting due to possible gastroparesis copd asthma h/o PE on eliquis -RLE pain resolved -leukocytosis 16.7 trending down -Currently AAOx3, will follow official neuro eval -h/h dropping 9.2 today -patient hemolyzing emily +, LDH trending up 334 from 300 -haptoglobin 240, retic 1.6, unlikely hemolyzing Problem List - Problems (1) Sickle cell anemia Code(s): D57.1 - SICKLE-CELL DISEASE WITHOUT CRISIS Qualifiers: Sickle-cell associated disorders: without crisis Qualified Code(s): D57.1 - Sickle-cell disease without crisis (2) Sickle cell crisis Code(s): D57.00 - HB-SS DISEASE WITH CRISIS, UNSPECIFIED Visit type - Emergency Visit Emergency Visit: Yes ED Registration Date: 06/07/18 Care time: The patient presented to the Emergency Department on the above date and was hospitalized for further evaluation of their emergent condition. - New Patient This patient is new to me today: No - Critical Care Critical Care patient: No - Discharge Referral Referred to [facility] Med P.C.: No
[2018-06-13] MEDS ORDERED: METOCLOPRAMIDE HCL INJECTION 10 MG/2 ML VIAL IVPUSH PRN (19:29)
[2018-06-13] MEDS ORDERED: oxyCODONE HCL 20 MG SUSTAINED ACTING TABLET PO SCH (22:00)
[2018-06-13] MEDS: MONTELUKAST NA 10 MG TABLET PO SCH (22:22)
[2018-06-13] MEDS: INSULIN (LEVEMIR) 100 UNITS/ML UNITS SQ SCH (22:26)
[2018-06-14] MEDS: NYSTATIN 500,000 UNITS/5 ML SUSPENSION PO SCH ×5 (00:47→23:45)
[2018-06-14] MEDS: INSULIN SLIDING SCALE (NOVOLOG) 1 VIAL SQ SCH ×5 (06:47→21:25)
[2018-06-14] MEDS: ALBUTEROL SO4 2.5/IPRATROPIUM 0.5 INH SOL 3 ML VIAL.NEB. NEB PRN (07:30)
[2018-06-14 08:22] LABS: BASO % 0.6 % (0-2.0); EOS % 1.8 % (0-4.5); HEMATOCRIT 26.3 % (32.4-45.2); HEMOGLOBIN 8.8 GM/dL (10.7-15.3); LYMPH % 39.2 % (8-40); MCHC 33.6 g/dl (32.0-36.0); MEAN CELL VOLUME 83.5 fl (80-96); MEAN PLT VOLUME 8.5 fl (7.5-11.1); MONO % 6.6 % (3.8-10.2); NEUT % 51.8 % (42.8-82.8); PLATELET COUNT 190 K/MM3 (134-434); RBC 3.15 M/mm3 (3.60-5.2); RDW 19.6 % (11.6-15.6); WHITE BLOOD COUNT 15.2 K/mm3 (4.0-10.0)
[2018-06-14 08:35] LABS: ALBUMIN 2.5 g/dl (3.4-5.0); BILIRUBIN,TOTAL 0.6 mg/dL (0.2-1); CALCIUM 8.2 mg/dL (8.5-10.1); POTASSIUM 3.7 mmol/L (3.5-5.1)
--- NOTE | 2018-06-14 08:40 | PN ---
Progress Note, Physician - Current Medication List Current Medications: Active Medications Acetaminophen (Tylenol -) 650 mg PO Q4H PRN PRN Reason: PAIN Last Admin: 06/12/18 21:28 Dose: 650 mg Albuterol/Ipratropium (Duoneb -) 1 amp NEB Q6H PRN PRN Reason: SHORTNESS OF BREATH Last Admin: 06/14/18 07:30 Dose: 1 amp Apixaban (Eliquis -) 5 mg PO BID [facility] Last Admin: 06/13/18 22:22 Dose: 5 mg Atenolol (Tenormin -) 25 mg PO DAILY [facility] Last Admin: 06/13/18 09:37 Dose: 25 mg Budesonide/Formoterol Fumarate (Symbicort 160/4.5mcg -) 1 puff IH BID [facility] Last Admin: 06/13/18 22:23 Dose: 1 puff Docusate Sodium (Colace -) 100 mg PO BID PRN PRN Reason: CONSTIPATION Folic Acid (Folic Acid -) 1 mg PO DAILY [facility] Last Admin: 06/13/18 09:37 Dose: 1 mg Gabapentin (Neurontin -) 300 mg PO BID [facility] Last Admin: 06/13/18 22:22 Dose: 300 mg Insulin Aspart (Novolog Vial Sliding Scale -) [facility] Last Admin: 06/14/18 06:47 Dose: Not Given Insulin Detemir (Levemir Vial) 10 units SQ [facility] Last Admin: 06/13/18 22:26 Dose: 10 units Losartan Potassium (Cozaar -) 50 mg PO DAILY [facility] Last Admin: 06/13/18 09:37 Dose: 50 mg Metoclopramide HCl (Reglan Injection -) 10 mg IVPUSH Q6H PRN PRN Reason: NAUSEA AND/OR VOMITING Last Admin: 06/13/18 20:34 Dose: 10 mg Montelukast Sodium (Singulair -) 10 mg PO [facility] Last Admin: 06/13/18 22:22 Dose: 10 mg Nystatin (Nystatin Oral Suspension -) 500,000 units PO Q6HPO [facility] Last Admin: 06/14/18 06:44 Dose: 500,000 units Oxycodone HCl (Roxicodone -) 30 mg PO Q6H PRN PRN Reason: PAIN LEVEL 7 - 10 Last Admin: 06/12/18 01:39 Dose: 30 mg Oxycodone HCl (Oxycontin -) 40 mg PO BID SORAYA Last Admin: 06/13/18 22:22 Dose: 40 mg - Objective Vital Signs: Vital Signs Temperature 98.8 F 06/14/18 05:00 Pulse Rate 101 H 06/14/18 05:00 Respiratory Rate 20 06/14/18 05:00 Blood Pressure 112/69 06/14/18 05:00 O2 Sat by Pulse Oximetry (%) 97 06/13/18 21:00 Cardiovascular: Yes: S1, S2 Respiratory: Yes: Regular, CTA Bilaterally Gastrointestinal: Yes: Normal Bowel Sounds, Soft Labs: CBC, BMP 06/14/18 06:44 06/14/18 06:44 INR, PTT INR 1.06 (0.83-1.09) 06/06/18 20:25 Problem List - Problems (1) GUCCI (acute kidney injury) Code(s): N17.9 - ACUTE KIDNEY FAILURE, UNSPECIFIED (2) Sepsis Code(s): A41.9 - SEPSIS, UNSPECIFIED ORGANISM (3) HTN (hypertension) Code(s): I10 - ESSENTIAL (PRIMARY) HYPERTENSION Qualifiers: Hypertension type: essential hypertension Qualified Code(s): I10 - Essential (primary) hypertension (4) Lethargy Code(s): R53.83 - OTHER FATIGUE (5) Diabetes Code(s): E11.9 - TYPE 2 DIABETES MELLITUS WITHOUT COMPLICATIONS Assessment/Plan - Problems (1) GUCCI (acute kidney injury) Assessment/Plan: improved--dc ivf renal sono renal on board Code(s): N17.9 - ACUTE KIDNEY FAILURE, UNSPECIFIED (2) Diabetes Assessment/Plan: bgm hgba1c levemir 10 units Code(s): E11.9 - TYPE 2 DIABETES MELLITUS WITHOUT COMPLICATIONS (3) Leukocytosis Assessment/Plan: wbc still elevated trending down-16 ID on board Microbiology 06/07/18 08:30 Blood - Peripheral Venous Blood Culture - Final NO GROWTH AFTER 5 DAYS INCUBATION 06/07/18 08:30 Blood - Peripheral Venous Blood Culture - Final NO GROWTH AFTER 5 DAYS INCUBATION 06/07/18 10:00 Urine - Urine Clean Catch Urine Culture - Final Code(s): D72.829 - ELEVATED WHITE BLOOD CELL COUNT, UNSPECIFIED (4) Anemia Assessment/Plan: repeat cbc noted w/u ordered dropping---hem follow up (5) Pulmonary embolism Assessment/Plan: eliquis Code(s): I26.99 - OTHER PULMONARY EMBOLISM WITHOUT ACUTE COR PULMONALE
[2018-06-14] MEDS: oxyCODONE HCL 20 MG SUSTAINED ACTING TABLET PO SCH ×2 (10:14→21:29)
[2018-06-14] MEDS: FOLIC ACID 1 MG TABLET (FP) PO SCH (10:14)
[2018-06-14] MEDS: GABAPENTIN 300 MG CAPSULE (FP) PO SCH ×2 (10:14→21:30)
[2018-06-14] MEDS: APIXABAN 5 MG TABLET PO SCH ×2 (10:14→21:30)
[2018-06-14] MEDS: LOSARTAN POTASSIUM 50 MG TABLET (FP) PO SCH (10:14)
[2018-06-14 10:15] LABS: ANISOCYTOSIS 1+; MACROCYTOSIS 0; PLATELET ESTIMATE NORMAL; TARGET CELLS 2+
[2018-06-14] MEDS: ATENOLOL 25 MG TABLET (FP) PO SCH (10:15)
[2018-06-14] MEDS: BUDESONIDE/FORMETEROL FUMARATE 160/4.5 mcg INHALER IH SCH ×2 (10:16→21:31)
[2018-06-14 14:50] LABS: CREATININE 0.8 mg/dL (0.55-1.3)
--- NOTE | 2018-06-14 15:47 | PN ---
Physical Exam: SUBJECTIVE: Patient seen and examined patient resting in bed NAD, afebrile hemodynamically stable. no acute events. denies further foot pain. denies d/c, bone pain, h/a. OBJECTIVE: Vital Signs Period Temp Pulse Resp BP Sys/Mendez Pulse Ox Last 24 Hr 98.4 F-99.2 F 87-101 18-20 112-134/65-87 97-97 GENERAL: The patient is awake, alert, and fully oriented, in no acute distress. HEAD: Normal with no signs of trauma. EYES: PERRL, extraocular movements intact, sclera anicteric, conjunctiva clear. ENT: moist mucous membranes. NECK: supple. LUNGS: Breath sounds equal, clear to auscultation bilaterally HEART: Regular rate and rhythm, S1, S2 ABDOMEN: Soft, nontender, nondistended, normoactive bowel sounds EXTREMITIES: 2+ pulses, warm, well-perfused, no edema. NEUROLOGICAL: Cranial nerves II through XII grossly intact. Normal speech, gait not observed. PSYCH: Normal mood, normal affect. SKIN: Warm, dry Laboratory Results - last 24 hr 06/12/18 06/13/18 06/13/18 13:20 17:14 22:24 WBC RBC Hgb Hct MCV MCH MCHC RDW Plt Count MPV Absolute Neuts (auto) Neutrophils % Neutrophils % (Manual) Band Neutrophils % Lymphocytes % Lymphocytes % (Manual) Monocytes % Monocytes % (Manual) Eosinophils % Eosinophils % (Manual) Basophils % Basophils % (Manual) Myelocytes % (Man) Promyelocytes % (Man) Blast Cells % (Manual) Nucleated RBC % Metamyelocytes Hypochromia Platelet Estimate Polychromasia Poikilocytosis Anisocytosis Microcytosis Macrocytosis Target Cells Sodium Potassium Chloride Carbon Dioxide Anion Gap BUN Creatinine Creat Clearance w eGFR Est GFR (CKD-EPI)AfAm Est GFR (CKD-EPI)NonAf POC Glucometer 99 190 Random Glucose Calcium Total Bilirubin AST ALT Alkaline Phosphatase LD Total Total Protein Albumin Blood Type O POSITIVE Antibody Screen Negative Direct Antiglob Test Positive H Crossmatch See Detail 06/14/18 06/14/18 06/14/18 06:44 06:44 06:46 WBC 15.2 H RBC 3.15 L Hgb 8.8 L Hct 26.3 L MCV 83.5 MCH 28.0 MCHC 33.6 RDW 19.6 H Plt Count 190 MPV 8.5 Absolute Neuts (auto) 7.9 Neutrophils % 51.8 D Neutrophils % (Manual) 54.0 Band Neutrophils % 0.0 Lymphocytes % 39.2 D Lymphocytes % (Manual) 34.0 Monocytes % 6.6 Monocytes % (Manual) 9 D Eosinophils % 1.8 Eosinophils % (Manual) 3.0 Basophils % 0.6 Basophils % (Manual) 0.0 Myelocytes % (Man) 0 Promyelocytes % (Man) 0 Blast Cells % (Manual) 0 Nucleated RBC % 3 H Metamyelocytes 0 Hypochromia 0 Platelet Estimate Normal Polychromasia 1+ Poikilocytosis 1+ Anisocytosis 1+ Microcytosis 1+ Macrocytosis 0 Target Cells 2+ Sodium 140 Potassium 3.7 Chloride 105 Carbon Dioxide 30 Anion Gap 5 L BUN 8 Creatinine 0.8 Creat Clearance w eGFR 70.12 Est GFR (CKD-EPI)AfAm 84.18 Est GFR (CKD-EPI)NonAf 72.63 POC Glucometer 118 Random Glucose 115 H Calcium 8.2 L Total Bilirubin 0.6 AST 15 ALT 14 Alkaline Phosphatase 72 LD Total 309 H Total Protein 6.0 L Albumin 2.5 L Blood Type Antibody Screen Direct Antiglob Test Crossmatch 06/14/18 12:17 WBC RBC Hgb Hct MCV MCH MCHC RDW Plt Count MPV Absolute Neuts (auto) Neutrophils % Neutrophils % (Manual) Band Neutrophils % Lymphocytes % Lymphocytes % (Manual) Monocytes % Monocytes % (Manual) Eosinophils % Eosinophils % (Manual) Basophils % Basophils % (Manual) Myelocytes % (Man) Promyelocytes % (Man) Blast Cells % (Manual) Nucleated RBC % Metamyelocytes Hypochromia Platelet Estimate Polychromasia Poikilocytosis Anisocytosis Microcytosis Macrocytosis Target Cells Sodium Potassium Chloride Carbon Dioxide Anion Gap BUN Creatinine Creat Clearance w eGFR Est GFR (CKD-EPI)AfAm Est GFR (CKD-EPI)NonAf POC Glucometer 124 Random Glucose Calcium Total Bilirubin AST ALT Alkaline Phosphatase LD Total Total Protein Albumin Blood Type Antibody Screen Direct Antiglob Test Crossmatch Active Medications Generic Name Dose Route Start Last Admin Trade Name Freq PRN Reason Stop Dose Admin Acetaminophen 650 mg 06/10/18 03:14 06/12/18 21:28 Tylenol - PO 650 mg Q4H PRN Administration PAIN Albuterol/Ipratropium 1 amp 06/07/18 17:13 06/14/18 07:30 Duoneb - NEB 1 amp Q6H PRN Administration SHORTNESS OF BREATH Apixaban 5 mg 06/07/18 10:00 06/14/18 10:14 Eliquis - PO 5 mg BID SORAYA Administration Atenolol 25 mg 06/07/18 17:15 06/14/18 10:15 Tenormin - PO 25 mg DAILY SORAYA Administration Budesonide/Formoterol Fumarate 1 puff 06/07/18 10:00 06/14/18 10:16 Symbicort 160/4.5mcg - IH 1 puff BID SORAYA Administration Docusate Sodium 100 mg 06/07/18 17:13 Colace - PO BID PRN CONSTIPATION Folic Acid 1 mg 06/07/18 10:00 06/14/18 10:14 Folic Acid - PO 1 mg DAILY SORAYA Administration Gabapentin 300 mg 06/07/18 22:00 06/14/18 10:14 Neurontin - PO 300 mg BID SORAYA Administration Insulin Aspart 1 vial 06/07/18 12:00 06/14/18 12:18 Novolog Vial Sliding Scale - SQ Not Given Q4HWA [facility] Protocol Insulin Detemir 10 units 06/08/18 22:00 06/13/18 22:26 Levemir Vial SQ 10 units HS [facility] Administration Losartan Potassium 50 mg 06/07/18 17:15 06/14/18 10:14 Cozaar - PO 50 mg DAILY [facility] Administration Metoclopramide HCl 10 mg 06/13/18 19:29 06/13/18 20:34 Reglan Injection - IVPUSH 10 mg Q6H PRN Administration NAUSEA AND/OR VOMITING Montelukast Sodium 10 mg 06/07/18 22:00 06/13/18 22:22 Singulair - PO 10 mg HS [facility] Administration Nystatin 500,000 units 06/07/18 18:00 06/14/18 13:33 Nystatin Oral Suspension - PO Not Given Q6HPO [facility] Oxycodone HCl 30 mg 06/08/18 15:18 06/12/18 01:39 Roxicodone - PO 30 mg Q6H PRN Administration PAIN LEVEL 7 - 10 Oxycodone HCl 40 mg 06/13/18 11:00 06/14/18 10:14 Oxycontin - PO 40 mg BID SORAYA Administration ASSESSMENT/PLAN: This is a 73 yp F with PMH of Hgb SC disease, COPD, Asthma, PE on eliquis, admitted with generalized weakness and found to have hyperglycemia and GUCCI. SC disease r/o crisis vomiting due to possible gastroparesis copd asthma h/o PE on eliquis -RLE pain resolved -leukocytosis 16.7 trending down -Currently AAOx3, will follow official neuro eval -h/h dropping 8.8 today -patient hemolyzing emily +, LDH trending down 309 today -haptoglobin 240, corrected retic 1.2, unlikely hemolyzing Problem List - Problems (1) Sickle cell anemia Code(s): D57.1 - SICKLE-CELL DISEASE WITHOUT CRISIS Qualifiers: Sickle-cell associated disorders: without crisis Qualified Code(s): D57.1 - Sickle-cell disease without crisis (2) Sickle cell crisis Code(s): D57.00 - HB-SS DISEASE WITH CRISIS, UNSPECIFIED Visit type - Emergency Visit Emergency Visit: Yes ED Registration Date: 06/07/18 Care time: The patient presented to the Emergency Department on the above date and was hospitalized for further evaluation of their emergent condition. - New Patient This patient is new to me today: No - Critical Care Critical Care patient: No - Discharge Referral Referred to [facility] Med P.C.: No
--- NOTE | 2018-06-14 19:23 | PN ---
Progress Note (short form) - Note Progress Note: Patient seen and examined Complains of some dizziness Hb/Hct falling -Hct-26% Initially presented with Hct--43% , After hydration 35-36% In view of significant fall (26%) , will transfuse one unit of packed cells ( complains of light-headedness and dizziness) Last Vital Signs Temp Pulse Resp BP Pulse Ox 99 F 94 H 20 125/65 97 06/14/18 14:00 06/14/18 14:00 06/14/18 14:00 06/14/18 14:00 06/14/18 09:00 Current Medications Generic Name Dose Route Start Last Admin Trade Name Freq PRN Reason Stop Dose Admin Acetaminophen 650 mg 06/10/18 03:14 06/12/18 21:28 Tylenol - PO 650 mg Q4H PRN Administration PAIN Albuterol/Ipratropium 1 amp 06/07/18 17:13 06/14/18 07:30 Duoneb - NEB 1 amp Q6H PRN Administration SHORTNESS OF BREATH Apixaban 5 mg 06/07/18 10:00 06/14/18 10:14 Eliquis - PO 5 mg BID SORAYA Administration Atenolol 25 mg 06/07/18 17:15 06/14/18 10:15 Tenormin - PO 25 mg DAILY SORAYA Administration Budesonide/Formoterol Fumarate 1 puff 06/07/18 10:00 06/14/18 10:16 Symbicort 160/4.5mcg - IH 1 puff BID SORAYA Administration Docusate Sodium 100 mg 06/07/18 17:13 Colace - PO BID PRN CONSTIPATION Folic Acid 1 mg 06/07/18 10:00 06/14/18 10:14 Folic Acid - PO 1 mg DAILY SORAYA Administration Gabapentin 300 mg 06/07/18 22:00 06/14/18 10:14 Neurontin - PO 300 mg BID SORAYA Administration Insulin Aspart 1 vial 06/07/18 12:00 06/14/18 17:33 Novolog Vial Sliding Scale - SQ Not Given Q4HWA [facility] Protocol Insulin Detemir 10 units 06/08/18 22:00 06/13/18 22:26 Levemir Vial SQ 10 units HS SORAYA Administration Losartan Potassium 50 mg 06/07/18 17:15 06/14/18 10:14 Cozaar - PO 50 mg DAILY SORAYA Administration Metoclopramide HCl 10 mg 06/13/18 19:29 06/13/18 20:34 Reglan Injection - IVPUSH 10 mg Q6H PRN Administration NAUSEA AND/OR VOMITING Montelukast Sodium 10 mg 06/07/18 22:00 06/13/18 22:22 Singulair - PO 10 mg HS SORAYA Administration Nystatin 500,000 units 06/07/18 18:00 06/14/18 17:33 Nystatin Oral Suspension - PO 500,000 units Q6HPO SORAYA Administration Oxycodone HCl 30 mg 06/08/18 15:18 06/12/18 01:39 Roxicodone - PO 30 mg Q6H PRN Administration PAIN LEVEL 7 - 10 Oxycodone HCl 40 mg 06/13/18 11:00 06/14/18 10:14 Oxycontin - PO 40 mg BID SORAYA Administration CBC, BMP 06/14/18 06:44 06/14/18 06:44 Cor-RSR Lungs: Clear to P&A Abd: Soft, Normal bowel sounds, No organomegaly Ext:No significant edema Skin: No rashes, Integument intact Impression: SC disease Anemia GUCCI Sepsis Leucocytosis Plan:m transfuse 1 unit of packed cells
[2018-06-14] MEDS: INSULIN (LEVEMIR) 100 UNITS/ML UNITS SQ SCH (21:30)
[2018-06-14] MEDS: MONTELUKAST NA 10 MG TABLET PO SCH (21:31)
[2018-06-15] MEDS: INSULIN SLIDING SCALE (NOVOLOG) 1 VIAL SQ SCH ×2 (06:43→12:35)
[2018-06-15] MEDS: NYSTATIN 500,000 UNITS/5 ML SUSPENSION PO SCH ×2 (06:44→11:42)
[2018-06-15 08:36] LABS: HEMATOCRIT 34.1 % (32.4-45.2); HEMOGLOBIN 11.3 GM/dL (10.7-15.3); MCH 28.3 pg (25.7-33.7); MCHC 33.2 g/dl (32.0-36.0); MEAN CELL VOLUME 85.4 fl (80-96); MEAN PLT VOLUME 8.8 fl (7.5-11.1); PLATELET COUNT 188 K/MM3 (134-434); RBC 3.99 M/mm3 (3.60-5.2); RDW 18.2 % (11.6-15.6); WHITE BLOOD COUNT 15.5 K/mm3 (4.0-10.0)
[2018-06-15] MEDS: oxyCODONE HCL 20 MG SUSTAINED ACTING TABLET PO SCH (11:42)
[2018-06-15] MEDS: FOLIC ACID 1 MG TABLET (FP) PO SCH (11:43)
[2018-06-15] MEDS: ATENOLOL 25 MG TABLET (FP) PO SCH (11:43)
[2018-06-15] MEDS: APIXABAN 5 MG TABLET PO SCH (11:43)
[2018-06-15] MEDS: GABAPENTIN 300 MG CAPSULE (FP) PO SCH (11:43)
[2018-06-15] MEDS: LOSARTAN POTASSIUM 50 MG TABLET (FP) PO SCH (11:43)
--- NOTE | 2018-06-15 14:26 | DS ---
Physical Examination Vital Signs: Vital Signs Temperature 98.5 F 06/15/18 06:00 Pulse Rate 91 H 06/15/18 10:00 Respiratory Rate 18 06/15/18 10:00 Blood Pressure 134/61 06/15/18 10:00 O2 Sat by Pulse Oximetry (%) 96 06/14/18 21:00 Constitutional: Yes: Calm Cardiovascular: Yes: Regular Rate and Rhythm, S1, S2 Respiratory: Yes: CTA Bilaterally Gastrointestinal: Yes: Normal Bowel Sounds, Soft Neurological: Yes: Alert, Oriented Labs: CBC, BMP 06/15/18 07:00 06/14/18 06:44 Discharge Summary Reason For Visit: ACUTE KIDNEY INJURY Current Active Problems GUCCI (acute kidney injury) (Acute) Diabetes (Acute) Hyperglycemia (Acute) Lethargy (Acute) Leukocytosis (Acute) Thrush (Acute) Hospital Course: PCP: Javed Wilkinson - Admission Chief Complaint: Lightheadedness History of Present Illness: This is a 73 y/o woman with a PMHx of COPD (home O2), HTN, 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 recent admission COPD Exacerbation 05/21-. Who presents to the ED with Lightheadedness, weakness, and diarrhea x 1 day. The patient's who was at bedside reports that the patient has had loose stools and had generalized weakness. Per the , patient is currently still taking Ceftin and Prednisone since discharge. Per the Patient' s denies fever, chills, cough, IVEY, CP, palpitations, AP, N/V, constipation, melena, hematochezia, dysuria anemia got prbc sen by heme PE on eliquis GUCCI resolved leukocytosis off abx wbc count near baseline thrush resolved as well sickle cell- no pain Condition: Fair - Instructions Disposition: VNS/HOME HEALTH CARE - Home Medications Comprehensive Discharge Medication List: Ambulatory Orders Folic Acid - 1 mg PO DAILY 02/11/13 Docusate Sodium [Colace -] 100 mg PO DAILY 04/06/15 Montelukast Na [Singulair -] 10 mg PO HS 04/06/15 Budesonide/Formeterol Fumarate [SYMBICORT 160/4.5mcg -] 1 inh PO BID 08/19/15 Cholecalciferol (Vitamin D3) [Vitamin D3 -] 1,000 unit PO DAILY 08/19/15 Ipratropium/Albuterol Sulfate [Combivent Respimat 20-100 Mcg] 1 inh IH Q4H PRN 08/19/15 Acetaminophen [Tylenol .Extra-Strength -] 1,000 mg PO Q8H PRN #0 tablet Albuterol Sulfate [Proair Hfa] 2 inh IH QID PRN 01/21/18 Gabapentin 300 mg PO HS 01/21/18 Losartan Potassium [Cozaar -] 50 mg PO DAILY 01/21/18 Cefuroxime Axetil [Ceftin -] 500 mg PO BID #10 tablet MDD 2 01/26/18 oxyCODONE HCL [Roxybond] 30 mg PO QID PRN 05/21/18 oxyCODONE SR [Oxycontin] 40 mg PO BID 05/21/18 Acetaminophen [Tylenol .Regular Strength -] 650 mg PO Q4H PRN tablet 05/26/18 Albuterol 0.083% Nebulizer Marichuy [Ventolin 0.083% Nebulizer Soln -] 1 amp NEB Q4H PRN amp 05/26/18 Albuterol 2.5/Ipratropium 0.5 [Duoneb -] 1 amp NEB RQID amp 05/26/18 Apixaban [Eliquis -] 5 mg PO BID tablet 05/26/18 Apixaban [Eliquis -] 5 mg PO BID #30 tablet MDD 2 05/26/18 Cefuroxime Axetil [Ceftin -] 500 mg PO BID #14 tablet MDD 2 05/26/18 Duloxetine HCl [Cymbalta -] 30 mg PO BID capsule. 05/26/18 Folic Acid - 1 mg PO DAILY tablet 05/26/18 Guaifenesin Dm [Robitussin Dm -] 10 ml PO Q4H PRN cup 05/26/18 predniSONE [Deltasone -] 10 mg PO DAILY #30 tablet 05/26/18 predniSONE [Deltasone -] See Taper PO DAILY #30 tablet 05/27/18 Atenolol [Tenormin -] 25 mg PO DAILY 06/07/18 Hydrochlorothiazide 12.5 mg PO BID 06/07/18
[2018-06-15 14:33] VITALS: BP 113/76; PULSE 92; TEMP 98.7
[2018-06-15] MEDS: BUDESONIDE/FORMETEROL FUMARATE 160/4.5 mcg INHALER IH SCH (14:47)
== END 2018-06-15 16:48 | disposition home health service (06) | DRG 682 ==
LOC: JER 19:21 → OBSVTOIN 06-07 04:21 → JERBED 06-07 04:21 → J4W 06-07 15:37
PROVIDERS: ADMIT Family Medicine; ATTEND Family Medicine
PROC: 05HM33Z Insertion of Infusion Device into Right Internal Jugular Vein, Percutaneous Approach (ICD-10-PCS; principal; 2018-06-07)
PROC: B543ZZA Ultrasonography of Right Jugular Veins, Guidance (ICD-10-PCS; 2018-06-07)
DX: N17.9 Acute kidney failure, unspecified (principal); I26.99 Other pulmonary embolism without acute cor pulmonale; G93.41 Metabolic encephalopathy; E87.1 Hypo-osmolality and hyponatremia; B37.0 Candidal stomatitis; N39.0 Urinary tract infection, site not specified; J44.9 Chronic obstructive pulmonary disease, unspecified; E11.43 Type 2 diabetes mellitus with diabetic autonomic (poly)neuropathy; K31.84 Gastroparesis; I10 Essential (primary) hypertension; M54.5 Low back pain; D64.9 Anemia, unspecified; D57.80 Other sickle-cell disorders without crisis; D72.829 Elevated white blood cell count, unspecified; E11.65 Type 2 diabetes mellitus with hyperglycemia; Z86.718 Personal history of other venous thrombosis and embolism; Z86.711 Personal history of pulmonary embolism; Z79.01 Long term (current) use of anticoagulants; Z96.643 Presence of artificial hip joint, bilateral; Z79.52 Long term (current) use of systemic steroids
CPT/HCPCS: 36415; 36430; 36511; 70450-TC; 71045-TC-FY; 71046-TC-FY; 73630-TC-LT; 73630-TC-RT-FY; 76775-TC; 80048; 80053; 81003; 82550; 82565; 82607; 82728; 82962; 83010; 83036; 83540; 83550; 83615; 83735; 83880; 83930; 83935; 84100; 84156; 84300; 84378; 84443; 84484; 84540; 85025; 85027; 85044; 85610; 85730; 86255; 86593; 86850; 86880; 86900; 86901; 86902; 86922; 87040; 87086; 93005; 93010; 93970-TC; 94640; 97116-GP; 97161-GP; 99285-25; J7030; P9038; P9058

== ENCOUNTER 2018-06-27 | Inpatient (IN) | payer OTHER ==
[2018-06-27 00:33] VITALS: BMI 28.1
--- NOTE | 2018-06-27 00:59 | PDOC ---
History of Present Illness - General Chief Complaint: Pain, Acute Stated Complaint: BACK PAIN Time Seen by Provider: 06/27/18 00:59 History Source: Patient - History of Present Illness Initial Comments: 06/27/18 01:18 The patient is a 73 year old female with a PMH of Sickle Cell Disease, COPD ( not on home O2), PE/DVT (on A/C) and Asthma who presents to our ED c/o 3 day h/ o chest pain. Pain is sharp, intermittent, lasts a few seconds and radiates to her back. Two episodes yesterday and 5 episodes today (including 2 in our waiting room). Pain is often accompanied by "balls of poop." Past History - Past Medical History Allergies/Adverse Reactions: Allergies Allergy/AdvReac Type Severity Reaction Status Date / Time ciprofloxacin [From Cipro] Allergy Itching Verified 06/27/18 00:31 ciprofloxacin HCl Allergy Itching Verified 06/27/18 00:31 [From Cipro] codeine [Codeine] Allergy Verified 06/27/18 00:31 levofloxacin [From Levaquin] Allergy Itching Verified 06/27/18 00:31 Penicillins Allergy Itching Verified 06/27/18 00:31 Sulfa (Sulfonamide Allergy Verified 06/27/18 00:31 Antibiotics) tetanus immune globulin Allergy Verified 06/27/18 00:31 IV DYE Allergy Uncoded 06/27/18 00:31 Home Medications: Ambulatory Orders Folic Acid - 1 mg PO DAILY 02/11/13 Docusate Sodium [Colace -] 100 mg PO DAILY 04/06/15 Montelukast Na [Singulair -] 10 mg PO HS 04/06/15 Losartan Potassium [Cozaar -] 50 mg PO DAILY 01/21/18 oxyCODONE SR [Oxycontin] 40 mg PO Q12H 05/21/18 Acetaminophen [Tylenol .Regular Strength -] 650 mg PO Q4H PRN tablet 05/26/18 Albuterol 0.083% Nebulizer Marichuy [Ventolin 0.083% Nebulizer Soln -] 1 amp NEB Q4H PRN amp 05/26/18 Apixaban [Eliquis -] 5 mg PO BID tablet 05/26/18 Gabapentin [Neurontin -] 300 mg PO BID capsule 06/15/18 Diltiazem HCl [Diltiazem 24Hr Cd] 180 mg PO 06/27/18 Hydrochlorothiazide [Hctz -] 12.5 mg PO BID 06/27/18 Omeprazole 20 mg PO BID 06/27/18 Prednisone [Deltasone] 20 mg PO DAILY 06/27/18 Anemia: Yes (SICKLE CELL) Asthma: (BRONCHITIS) Cancer: No Cardiac Disorders: Yes CVA: No COPD: No CHF: No Dementia: No Diabetes: No GI Disorders: No Disorders: No HTN: Yes Hypercholesterolemia: No Liver Disease: No Seizures: No Thyroid Disease: No - Surgical History Abdominal Surgery: Yes Cardiac Surgery: No Cholecystectomy: Yes Orthopedic Surgery: Yes ([place] hip replacement 2005 ? back sx, rotary cuff) - Immunization History Immunization Up to Date: Yes (no pna) - Suicide/Smoking/Psychosocial Hx Smoking Status: No Smoking History: Never smoked Have you smoked in the past 12 months: No Number of Cigarettes Smoked Daily: 0 Hx Alcohol Use: No Drug/Substance Use Hx: No Substance Use Type: None Hx Substance Use Treatment: No Review of Systems - Review of Systems Constitutional: No: Chills, Fever HEENTM: No: Blurred Vision, Recent change in vision Respiratory: Yes: Shortness of Breath Cardiac (ROS): Yes: Chest Pain. No: Lightheadedness, Palpitations ABD/GI: No: Constipated, Diarrhea, Nausea, Vomiting *Physical Exam - Vital Signs Last Vital Signs Temp Pulse Resp BP Pulse Ox 98.0 F 102 H 24 H 124/57 L 94 L 06/27/18 00:31 06/27/18 00:31 06/27/18 00:31 06/27/18 00:06/27/18 00:31 - Physical Exam General Appearance: Yes: Nourished, Appropriately Dressed HEENT: positive: Hearing Grossly Normal Neck: positive: Trachea midline, Supple Respiratory/Chest: positive: Wheezing. negative: Chest Tender, Accessory Muscle Use, Labored Respiration, Crackles Cardiovascular: positive: S1, S2, Edema (L ankle 1+ pitting edema), Systolic Murmur Vascular Pulses: Dorsalis-Pedis (R): 2+, Doralis-Pedis (L): 2+ Gastrointestinal/Abdominal: positive: Normal Bowel Sounds, Soft Extremity: positive: Normal Capillary Refill, Normal Inspection Integumentary: positive: Normal Color, Dry, Warm Neurologic: positive: medical consultant II-XII NML intact, Fully Oriented, Alert Heart Score/ECG Review - ECG Impressions Comment:: 06/27/18 06:50 NSR HR 96 normal intervals, no deviations no GENEVIEVE/STD/TWI ED Treatment Course - LABORATORY CBC & Chemistry Diagram: 06/27/18 03:00 06/27/18 03:00 Medical Decision Making - Medical Decision Making 06/27/18 01:19 73 year old female with chest pain that radiates to her back. VS unremarkable. Frontal diagnosis: r/o ACS, aortic dissection, also consider MSK, costochondritis. Considered PE given patient's hypercoaguability, however given clinical presentation, will refrain from CTA at this time. 06/27/18 01:34 BPR 100/60, L 95/60 06/27/18 03:41 Leukocytosis 14.1 - likely 2/2 to SCD 06/27/18 03:42 EKG non-ischemic as documented in EKG section of EMR 06/27/18 04:44 Troponin (-) x1 Cr 6 (previous Cr 1.8) - ARF 2/2 urinary retention 2/2 to constipation vs. pre- renal including decreased PO intake. Patient requires admission 06/27/18 04:49 Hospitalist microblogged 06/27/18 04:55 Case d/w NELIA Duncan; patient admitted to observation. Clinical Impression: ARF possibly 2/2 to urinary retention *DC/Admit/Observation/Transfer Diagnosis at time of Disposition: Acute renal failure - Discharge Dispostion Condition at time of disposition: Fair Decision to Admit order: Yes - Referrals - Patient Instructions - Post Discharge Activity
--- NOTE | 2018-06-27 02:23 | PDOC ---
Documentation entered by Sandra To SCRIBE, acting as scribe for Caty Ackerman MD. Caty Ackerman MD: This documentation has been prepared by the Yousuf man Daisy, SCRIBE, under my direction and personally reviewed by me in its entirety. I confirm that the documentation accurately reflects all work, treatment, procedures, and medical decision making performed by me. Attending Attestation - Resident Resident Name: Samina Sánchez - ED Attending Attestation I have performed the following: I have examined & evaluated the patient, The case was reviewed & discussed with the resident, I agree w/resident's findings & plan - HPI HPI: 06/27/18 01:33 The patient is a 73YOF with a PMH of Sickle Cell Disease, COPD (not on home O2) , PE/DVT (on A/C) and Asthma who presents to the ER for 3-4 episodes of sharp epigastric pain radiating to the shoulder blades followed by loose stool. Denies N/V, urinary symptoms, fever, or chills. Allergies: cipro, codeine, levofloxacin - Physicial Exam PE: 06/27/18 01:34 ADULT EXAM GENERAL: Awake, alert, and fully oriented, in no acute distress ENT: Auricles normal inspection, hearing grossly normal, nares patent, oropharynx clear without exudates. Moist mucosa NECK: Normal ROM, supple, no lymphadenopathy, JVD, or masses LUNGS: Breath sounds equal, clear to auscultation bilaterally. No wheezes, and no crackles HEART: Regular rate and rhythm, normal S1 and S2, no murmurs, rubs or gallops ABDOMEN: Soft, nontender, normoactive bowel sounds. No guarding, no rebound. No masses EXTREMITIES: (+) left ankle pedal edema. No erythema, or tenderness NEUROLOGICAL: moving all extremities. ambulatory SKIN: Warm, Dry - Medical Decision Making 06/27/18 02:20 pt is having atypical epigastric/chest pain radiating top her back and loose stools pt has many co morbidiites ,CAD and requires cardiac w/u
[2018-06-27 03:19] LABS: EOS % 2.2 % (0-4.5); HEMOGLOBIN 10.2 GM/dL (10.7-15.3); LYMPH % 34.3 % (8-40); MCH 27.9 pg (25.7-33.7); MCHC 32.9 g/dl (32.0-36.0); MEAN CELL VOLUME 84.8 fl (80-96); MEAN PLT VOLUME 7.9 fl (7.5-11.1); MONO % 6.2 % (3.8-10.2); NEUT % 56.3 % (42.8-82.8); PLATELET COUNT 457 K/MM3 (134-434); RBC 3.65 M/mm3 (3.60-5.2); RDW 18.5 % (11.6-15.6); WHITE BLOOD COUNT 14.1 K/mm3 (4.0-10.0)
[2018-06-27 03:36] LABS: INR 1.78 (0.83-1.09); PROTHROMBIN TIME (PATIENT) 21.1 SEC (9.7-13.0)
[2018-06-27 03:39] LABS: ACTIVATED PTT 34.2 SECONDS (25.2-36.5)
[2018-06-27 03:59] LABS: ALBUMIN 3.2 g/dl (3.4-5.0); ALK PHOS 135 U/L (45-117); ANION GAP 10 MMOL/L (8-16); BILIRUBIN,TOTAL 0.9 mg/dL (0.2-1); BLOOD UREA NITROGEN 35 mg/dL (7-18); CHLORIDE 98 mmol/L (98-107); CO2 27 mmol/L (21-32); GLUCOSE,RANDOM 101 mg/dL (74-106); POTASSIUM 4.6 mmol/L (3.5-5.1); SGOT/AST 27 U/L (15-37); SGPT/ALT 9 U/L (13-61); SODIUM 135 mmol/L (136-145); TOT PROT 7.1 g/dl (6.4-8.2)
[2018-06-27] MEDS ORDERED: PATIENT'S OWN MEDICATION (NON-FORMULARY) (Ipratropium/Albuterol Sulfate [Combivent Respima IH PRN (04:59)
[2018-06-27] MEDS ORDERED: ALBUTEROL SO4 0.083% IH SOL 2.5 MG/3 ML VIAL.NEB. NEB PRN (04:59)
--- NOTE | 2018-06-27 05:34 | HP ---
CHIEF COMPLAINT: left groin pain with radiation to chest and back described as sharp for 4 days lasting a few seconds PCP:Dr. Wilkinson HISTORY OF PRESENT ILLNESS: 73 year old female with a past medical history of sickle cell disease (follows at the sickle cell clinic at [facility]), COPD (not on home O2 therapy), atrial fibrillation, and pulmonary embolism /DVT (on eliquis) who presents with symptoms of left groin pain with radiation to her mid chest and mid lower back described a severe, sharp and intermittent lasting a few seconds. She currently reports no chest or back discomfort. She denies history of aneurysms in the family. Upon evaluation in the ER she has an elevated WBC of 14.1, creatinine of 6.0( creatinine in early june 0.8). She is afebrile, pulse rate low 100's and blood pressure is normotensive. She has mild hypoxia with oxygen saturations between 93-94%. EKG- normal sinus rhythm, no signs of acute ischemia. Troponin is normal. Recent Travel: denies PAST MEDICAL HISTORY: as above PAST SURGICAL HISTORY: none Social History: Smoking:denies Alcohol:denies Drugs: denies Family History:noncontributory Allergies ciprofloxacin [From Cipro] Allergy (Verified 06/27/18 00:31) Itching ciprofloxacin HCl [From Cipro] Allergy (Verified 06/27/18 00:31) Itching codeine [Codeine] Allergy (Verified 06/27/18 00:31) levofloxacin [From Levaquin] Allergy (Verified 06/27/18 00:31) Itching Penicillins Allergy (Verified 06/27/18 00:31) Itching Sulfa (Sulfonamide Antibiotics) Allergy (Verified 06/27/18 00:31) tetanus immune globulin Allergy (Verified 06/27/18 00:31) IV DYE Allergy (Uncoded 06/27/18 00:31) HOME MEDICATIONS: Home Medications Medication Instructions Recorded Folic Acid - 1 mg PO DAILY 02/11/13 Docusate Sodium [Colace -] 100 mg PO DAILY 04/06/15 Montelukast Na [Singulair -] 10 mg PO HS 04/06/15 Budesonide/Formeterol Fumarate 1 inh PO BID 08/19/15 [SYMBICORT 160/4.5mcg -] Cholecalciferol (Vitamin D3) 1,000 unit PO DAILY 08/19/15 [Vitamin D3 -] Ipratropium/Albuterol Sulfate 1 inh IH Q4H PRN 08/19/15 [Combivent Respimat 20-100 Mcg] Albuterol Sulfate [Proair Hfa] 2 inh IH QID PRN 01/21/18 Losartan Potassium [Cozaar -] 50 mg PO DAILY 01/21/18 oxyCODONE HCL [Roxybond] 30 mg PO QID PRN 05/21/18 oxyCODONE SR [Oxycontin] 40 mg PO BID 05/21/18 Acetaminophen [Tylenol .Regular 650 mg PO Q4H PRN tablet 05/26/18 Strength -] Albuterol 0.083% Nebulizer Marichuy 1 amp NEB Q4H PRN amp 05/26/18 [Ventolin 0.083% Nebulizer Soln -] Albuterol 2.5/Ipratropium 0.5 1 amp NEB RQID amp 05/26/18 [Duoneb -] Apixaban [Eliquis -] 5 mg PO BID tablet 05/26/18 Apixaban [Eliquis -] 5 mg PO BID #30 tablet MDD 2 05/26/18 Duloxetine HCl [Cymbalta -] 30 mg PO BID capsule. 05/26/18 Folic Acid - 1 mg PO DAILY tablet 05/26/18 Atenolol [Tenormin -] 25 mg PO DAILY 06/07/18 Gabapentin [Neurontin -] 300 mg PO BID capsule 06/15/18 REVIEW OF SYSTEMS CONSTITUTIONAL: Absent: fever, chills, diaphoresis, generalized weakness, malaise, loss of appetite, weight change HEENT: Absent: rhinorrhea, nasal congestion, throat pain, throat swelling, difficulty swallowing, mouth swelling, ear pain, eye pain, visual changes CARDIOVASCULAR: Absent: chest pain, syncope, palpitations, irregular heart rate, lightheadedness , peripheral edema RESPIRATORY: Absent: cough, shortness of breath, dyspnea with exertion, orthopnea, wheezing, stridor, hemoptysis GASTROINTESTINAL: Absent: left groin pain, abdominal distension, nausea, vomiting, diarrhea, constipation, melena, hematochezia GENITOURINARY: Absent: dysuria, frequency, urgency, hesitancy, hematuria, flank pain, genital pain MUSCULOSKELETAL: Absent: myalgia, arthralgia, joint swelling, back pain, neck pain SKIN: Absent: rash, itching, pallor HEMATOLOGIC/IMMUNOLOGIC: Absent: easy bleeding, easy bruising, lymphadenopathy, frequent infections ENDOCRINE: Absent: unexplained weight gain, unexplained weight loss, heat intolerance, cold intolerance NEUROLOGIC: Absent: headache, focal weakness or paresthesias, dizziness, unsteady gait, seizure, mental status changes, bladder or bowel incontinence PSYCHIATRIC: Absent: anxiety, depression, suicidal or homicidal ideation, hallucinations. PHYSICAL EXAMINATION Vital Signs - 24 hr 06/27/18 00:31 Temperature 98.0 F Pulse Rate 102 H Respiratory 24 H Rate Blood Pressure 124/57 L O2 Sat by Pulse 94 L Oximetry (%) GENERAL: awake, alert, and fully oriented no acute distress HEAD: normal with no signs of trauma EYES: pupils equal round and reactive to light EARS, NOSE, THROAT: ears normal, nares patent, oropharynx clear without exudates NECK:no JVD LUNGS: breath sounds clear to auscultation bilaterally no wheezing no crackles no accessory muscle use HEART: regular rate and rhythm, normal S1 and S2 ABDOMEN: soft, nontender, mildly distended, normoactive bowel sounds no guarding MUSCULOSKELETAL: normal range of motion UPPER EXTREMITIES: 2+ pulses, warm, well-perfused no cyanosis LOWER EXTREMITIES: 2+ pulses, warm well-perfused no pitting edema NEUROLOGICAL: no focal deficits PSYCHIATRIC: cooperative SKIN: warm dry normal turgor no rashes or lesions noted normal capillary refill Laboratory Results - last 24 hr 06/27/18 06/27/18 06/27/18 03:00 03:00 03:00 WBC 14.1 H RBC 3.65 Hgb 10.2 L Hct 31.0 L MCV 84.8 MCH 27.9 MCHC 32.9 RDW 18.5 H Plt Count 457 H D MPV 7.9 D Absolute Neuts (auto) 8.0 Neutrophils % 56.3 Lymphocytes % 34.3 Monocytes % 6.2 Eosinophils % 2.2 Basophils % 1.0 Nucleated RBC % 2 H PT with INR 21.10 H INR 1.78 H PTT (Actin FS) 34.2 Sodium 135 L Potassium 4.6 Chloride 98 Carbon Dioxide 27 Anion Gap 10 BUN 35 H Creatinine 6.0 H Est GFR (CKD-EPI)AfAm 7.37 Est GFR (CKD-EPI)NonAf 6.36 Random Glucose 101 Calcium 8.0 L Total Bilirubin 0.9 AST 27 ALT 9 L Alkaline Phosphatase 135 H Creatine Kinase 423 H Creatine Kinase Index 1.5 CK-MB (CK-2) 6.7 H Troponin I < 0.02 Total Protein 7.1 Albumin 3.2 L ASSESSMENT/PLAN: 73 year old female with a past medical history of sickle cell disease (follows at the sickle cell clinic at [facility]), COPD (not on home O2 therapy), atrial fibrillation, and pulmonary embolism /DVT (on eliquis) who presents with symptoms of left groin pain with radiation to her mid chest and mid lower back described a severe, sharp and intermittent lasting a few seconds. She currently reports no chest or back discomfort. Chest/Back Pain Currently she is asymptomatic. EKG with no signs of acute ischemia. Troponin is normal She has new acute renal failure(creatinine of 6.0), unable to get CT angiogram of chest to exclude aortic aneurysm/ dissection/PE.D-Dimer will sensitive due to patient history of sickle cell disease -Check CT scan of chest WOC and pending -Continue to trend troponins -Check echocardiogram -Cardiology- Dr. Vance consulted Acute Renal Failure Creatinine in June was 0.8. -Hold losartan and eliquis -Check renal US -IVF Normal saline at 75cc/hr -Nephrology- Dr. Pelaez consulted Sickle Cell Disease Stable, in remission Atrial Fibrillation EKG w/nsr, rate controlled. - Continue with atenolol - Eliquis placed on hold in setting of ARF - Added therapeutic heparin sq injections History DVT/PE She has mild hypoxia and oxygen saturations ranging between 93-94% with oxygen therapy. She has mild tachycardia. -Check venous dopplers of LE -Eliquis placed on hold in setting of ARF -Therapeutic heparin sq injections added Leukocytosis Patient is afebrile. She denies cough or chills. Likely reactive to sickle cell disease as she has chronically elevated WBC FEN IVF-NS @75cc/hr, renal diet, monitor electrolytes closely DVT -heparin 5000U TID sq injections Visit type - Emergency Visit Emergency Visit: Yes ED Registration Date: 06/27/18 Care time: The patient presented to the Emergency Department on the above date and was hospitalized for further evaluation of their emergent condition. - New Patient This patient is new to me today: Yes Date on this admission: 06/27/18 - Critical Care Critical Care patient: No
[2018-06-27] MEDS ORDERED: HEPARIN NA (PORCINE) 5,000 UNITS/ML 1ML VIAL SQ SCH (06:00)
[2018-06-27] MEDS: SODIUM CHLORIDE 1,000 ML IV SCH (06:55)
[2018-06-27] MEDS: ALBUTEROL SO4 2.5/IPRATROPIUM 0.5 INH SOL 3 ML VIAL.NEB. NEB SCH ×3 (08:30→21:03)
[2018-06-27] MEDS ORDERED: ALBUTEROL SO4 2.5/IPRATROPIUM 0.5 INH SOL 3 ML VIAL.NEB. NEB ONE (08:57)
[2018-06-27] MEDS ORDERED: APIXABAN 5 MG TABLET PO SCH (10:00)
[2018-06-27] MEDS ORDERED: LOSARTAN POTASSIUM 50 MG TABLET (FP) PO SCH (10:00)
[2018-06-27] MEDS ORDERED: ATENOLOL 25 MG TABLET (FP) ONE (10:11)
[2018-06-27] MEDS ORDERED: oxyCODONE HCL 40 MG SUSTAINED ACTING TABLET PO ONE (10:12)
[2018-06-27] MEDS: GABAPENTIN 300 MG CAPSULE (FP) PO SCH ×2 (10:27→22:23)
[2018-06-27] MEDS: FOLIC ACID 1 MG TABLET (FP) PO SCH (10:27)
[2018-06-27] MEDS: ATENOLOL 25 MG TABLET (FP) PO SCH (10:27)
[2018-06-27] MEDS: CHOLECALCIFEROL (VIT D3) 1,000 UNIT (25 MCG) TABLET PO SCH (10:27)
[2018-06-27] MEDS: DULoxetine HCL 30 MG CAPSULE.DR PO SCH ×2 (10:27→22:23)
[2018-06-27] MEDS: oxyCODONE HCL 40 MG SUSTAINED ACTING TABLET PO SCH ×2 (10:27→23:03)
[2018-06-27] MEDS: DOCUSATE SODIUM 100 MG CAPSULE (FP) PO SCH (10:27)
--- NOTE | 2018-06-27 10:53 | CONSULT ---
Consult - text type - Consultation Consultation Note: Renal Consult for GUCCI This is a 73 year old woman with hx of sickle cell diseae, COPD, Afib on A/C, PE /DVT presented complains of groin and chest pain and found to have GUCCI with Cr of 6. Pt was seen by our service on her last admission for GUCCI with peak Cr of 1.8, improved to 0.8 on discharge. Pt reports lower abdominal pain and inability to void completely. Denies any flank pain pain. No dysuria. Denies any NSAID use. No recent IV contrast exposure. No skin rash, recent abx use. No sob, had some slight chest pain. PMHx: as above Allergies: NKDA Family Hx: NC Social Hx: No T/A/D ROS: as per HPI, all other pertinent ros negative Home Medications Medication Instructions Recorded Folic Acid - 1 mg PO DAILY 02/11/13 Docusate Sodium [Colace -] 100 mg PO DAILY 04/06/15 Montelukast Na [Singulair -] 10 mg PO HS 04/06/15 Losartan Potassium [Cozaar -] 50 mg PO DAILY 01/21/18 oxyCODONE SR [Oxycontin] 40 mg PO Q12H 05/21/18 Acetaminophen [Tylenol .Regular 650 mg PO Q4H PRN tablet 05/26/18 Strength -] Albuterol 0.083% Nebulizer Marichuy 1 amp NEB Q4H PRN amp 05/26/18 [Ventolin 0.083% Nebulizer Soln -] Apixaban [Eliquis -] 5 mg PO BID tablet 05/26/18 Gabapentin [Neurontin -] 300 mg PO BID capsule 06/15/18 Diltiazem HCl [Diltiazem 24Hr Cd] 180 mg PO 06/27/18 Hydrochlorothiazide [Hctz -] 12.5 mg PO BID 06/27/18 Omeprazole 20 mg PO BID 06/27/18 Prednisone [Deltasone] 20 mg PO DAILY 06/27/18 Vital Signs Temperature 98.0 F 06/27/18 00:31 Pulse Rate 102 H 06/27/18 00:31 Respiratory Rate 24 H 06/27/18 00:31 Blood Pressure 124/57 L 06/27/18 00:31 O2 Sat by Pulse Oximetry (%) 94 L 06/27/18 00:31 Intake & Output 06/24/18 06/25/18 06/26/18 06/27/18 23:59 23:59 23:59 23:59 Weight 76.657 kg NAD awake and alert neck supple, no JVD RRR, no M/R CTA, no rales soft, + tenderness in lower abd no LE edema + bladder distension CBC, BMP 06/27/18 03:00 06/27/18 03:00 Current Medications Albuterol Sulfate (Ventolin 0.083% Nebulizer Soln -) 1 amp NEB Q4H PRN PRN Reason: SHORT OF BREATH/WHEEZING Albuterol/Ipratropium (Duoneb -) 1 amp NEB RQID [facility] Last Admin: 06/27/18 08:30 Dose: 1 amp Atenolol (Tenormin -) 25 mg PO DAILY [facility] Last Admin: 06/27/18 10:27 Dose: 25 mg Cholecalciferol (Vitamin D3 -) 1,000 unit PO DAILY [facility] Last Admin: 06/27/18 10:27 Dose: 1,000 unit Docusate Sodium (Colace -) 100 mg PO DAILY [facility] Last Admin: 06/27/18 10:27 Dose: 100 mg Duloxetine HCl (Cymbalta -) 30 mg PO BID [facility] Last Admin: 06/27/18 10:27 Dose: 30 mg Folic Acid (Folic Acid -) 1 mg PO DAILY [facility] Last Admin: 06/27/18 10:27 Dose: 1 mg Gabapentin (Neurontin -) 300 mg PO BID [facility] Last Admin: 06/27/18 10:27 Dose: 300 mg Heparin Sodium (Porcine) (Heparin -) 5,000 unit SQ TID [facility] Last Admin: 06/27/18 06:56 Dose: 5,000 unit Sodium Chloride (Normal Saline -) 1,000 mls @ 75 mls/hr IV ASDIR [facility] Last Admin: 06/27/18 06:55 Dose: 75 mls/hr Montelukast Sodium (Singulair -) 10 mg PO HS [facility] Non-Formulary Medication (Ipratropium/Albuterol Sulfate [Combivent Respimat 20- 100 Mcg]) 1 inh IH Q4H PRN PRN Reason: SHORT OF BREATH/WHEEZING Oxycodone HCl (Oxycontin -) 40 mg PO BID [facility] Last Admin: 06/27/18 10:27 Dose: 40 mg 73 year old woman with hx of sickle cell diseae, COPD, Afib on A/C, PE/DVT presented complains of groin and chest pain and found to have GUCCI with Cr of 6. 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
--- NOTE | 2018-06-27 11:04 | CON.CARD ---
Consult Consult Specialty:: Cardiology Reason for Consultation:: chest pain - History of Present Illness Chief Complaint: abdominal pain History of Present Illness: 73 year old woman with pmh Sickle cell disease, COPD, Afib on eliquis, HTN, h/o DVT/PE on eliquis, prior admissions for atypical chest pain, now admitted with abdominal pain radiating up to the epigastrum and back and noted to have CAESAR with concern for urinary retention. Pt seen and examined today in nad. states she has had trouble emptying her bladder recently. denies any significant chest pain. no sob, palpitations, pnd, orthopnea, or LE edema. - History Source History Provided By: Patient, Family Member Limitations to Obtaining History: No Limitations - Past Medical History Cardio/Vascular: Yes: Deep Vein Thrombosis, HTN, Other (PE) Pulmonary: Yes: COPD, Pulmonary Embolus Psych: Yes: Addictions, Other (Pain meds- methadone, oxycodone ) Musculoskeletal: Yes: Chronic low back pain - Past Surgical History Past Surgical History: Yes: Cholecystectomy, Hysterectomy, Joint Replacement ( bilateral hip replacements) - Alcohol/Substance Use Hx Alcohol Use: No History of Substance Use: reports: Prescription - Smoking History Smoking history: Never smoked Have you smoked in the past 12 months: No Aproximately how many cigarettes per day: 0 - Social History Usual Living Arrangement: With Spouse ADL: Independent History of Recent Travel: No Home Medications - Allergies Allergies/Adverse Reactions: Allergies Allergy/AdvReac Type Severity Reaction Status Date / Time ciprofloxacin [From Cipro] Allergy Itching Verified 06/27/18 00:31 ciprofloxacin HCl Allergy Itching Verified 06/27/18 00:31 [From Cipro] codeine [Codeine] Allergy Verified 06/27/18 00:31 levofloxacin [From Levaquin] Allergy Itching Verified 06/27/18 00:31 Penicillins Allergy Itching Verified 06/27/18 00:31 Sulfa (Sulfonamide Allergy Verified 06/27/18 00:31 Antibiotics) tetanus immune globulin Allergy Verified 06/27/18 00:31 IV DYE Allergy Uncoded 06/27/18 00:31 - Home Medications Home Medications: Ambulatory Orders Folic Acid - 1 mg PO DAILY 02/11/13 Docusate Sodium [Colace -] 100 mg PO DAILY 04/06/15 Montelukast Na [Singulair -] 10 mg PO HS 04/06/15 Losartan Potassium [Cozaar -] 50 mg PO DAILY 01/21/18 oxyCODONE SR [Oxycontin] 40 mg PO Q12H 05/21/18 Acetaminophen [Tylenol .Regular Strength -] 650 mg PO Q4H PRN tablet 05/26/18 Albuterol 0.083% Nebulizer Marichuy [Ventolin 0.083% Nebulizer Soln -] 1 amp NEB Q4H PRN amp 05/26/18 Apixaban [Eliquis -] 5 mg PO BID tablet 05/26/18 Gabapentin [Neurontin -] 300 mg PO BID capsule 06/15/18 Diltiazem HCl [Diltiazem 24Hr Cd] 180 mg PO 06/27/18 Hydrochlorothiazide [Hctz -] 12.5 mg PO BID 06/27/18 Omeprazole 20 mg PO BID 06/27/18 Prednisone [Deltasone] 20 mg PO DAILY 06/27/18 Family Disease History - Family Disease History Family Disease History: Diabetes: Mother (HTN, TIIDM, Stroke), Heart Disease: Mother, CA: Father (Lung CA), Other: Mother Review of Systems - Review of Systems Constitutional: denies: No Symptoms, Chills, Diaphoresis, Fever, Lethargy, Loss of Appetite, Malaise, Night Sweats, Unintentional Wgt. Loss, Weakness, Other Eyes: denies: No Symptoms, Blind Spots, Blurred Vision, Double Vision, Eye Pain , Floaters, Photophobia, Recent Change in Vision, Other HENT: denies: No Symptoms, Difficult Swallowing, Ear Discharge, Ear Pain, Epistaxis, Gingival Bleeding, Hearing Loss, Mouth Swelling, Nasal Congestion, Ocular Prosthesis, Throat Pain, Toothache, Ringing in Ears, Other Neck: denies: No Symptoms, Decreased ROM, Lumps, Pain on Movement, Stiffness, Swollen Glands, Tenderness, Other Cardiovascular: denies: No Symptoms, Chest Pain, Edema, Palpitations, Shortness of Breath, Other Respiratory: denies: No Symptoms, Cough, Exercise Intolerance, Hemoptysis, Orthopnea, PND, Snoring, SOB, SOB on Exertion, Wheezing, Other Gastrointestinal: reports: Abdominal Pain. denies: No Symptoms, Bloating, Constipation, Diarrhea, Dysphagia, Indigestion, Melena, Nausea, Rectal Bleeding , Vomiting, Vomiting Blood, Other Genitourinary: reports: Frequency, Pain, Urgency. denies: No Symptoms, Burning , Discharge, Dysuria, Flank Pain, Hematuria, Incontinence, Lesions, Menses, Testicular Mass, Testicular Pain, Testicular Swelling, Vaginal Bleeding, Other Breasts: denies: No Symptoms Reported, See HPI, Breast Implants, Discharge from Nipple, Lumps, Pain, Skin Changes, Other Musculoskeletal: denies: No Symptoms, Back Pain, Crepitus, Decreased ROM, Extremity Pain, Joint Pain, Joint Swelling, Muscle Pain, Muscle Cramps, Muscle Weakness, Other Integumentary: denies: No Symptoms, Blister, Bruising, Change in Color, Eczema, Erythema, Incision, Lesions, Lump, Pallor, Pruritis, Rash, Wound, Other Neurological: denies: No Symptoms, Change in LOC, Change in Speech, Confusion, Dizziness, Headache, Incoordination, Numbness, Parasthesia, Pre-Existing Deficit , Seizure, Syncope, Tremors, Unsteady Gait, Weakness, Other Endocrine: denies: No Symptoms, Excessive Sweating, Flushing, Increased Hunger, Increased Thirst, Intolerance to Cold, Intolerance to Heat, Unexplained Weight Gain, Unexplained Weight Loss, Other Hematology/Lymphatic: denies: No Symptoms, Easily Bruised, Excessive Bleeding, Swollen Glands, Other Psychiatric: denies: No Symptoms, Altered Sleep Pattern, Anxiety, Depression, Hallucinations, Panic, Paranoia, Suicidal, Other - Risk Factors Known Risk Factors: Yes: Age, Hypertension Vital Signs: Vital Signs Temperature 98.0 F 06/27/18 00:31 Pulse Rate 102 H 06/27/18 00:31 Respiratory Rate 24 H 06/27/18 00:31 Blood Pressure 124/57 L 06/27/18 00:31 O2 Sat by Pulse Oximetry (%) 94 L 06/27/18 00:31 Constitutional: Yes: No Distress, Calm Eyes: Yes: WNL, Conjunctiva Clear, EOM Intact HENT: Yes: WNL, Atraumatic, Normocephalic Neck: Yes: WNL, Supple, Trachea Midline Respiratory: Yes: WNL, Regular, CTA Bilaterally. No: Rales, Rhonchi, SOB, Wheezes Gastrointestinal: Yes: Normal Bowel Sounds, Soft. No: Distention, Tenderness Cardiovascular: Yes: Regular Rate and Rhythm. No: Bradycardia, Tachycardia, Pulse Irregular, Gallop, Rub, Varicosities JVD: No Carotid Bruit: No PMI: Non-Displaced Heart Sounds: Yes: S1, S2. No: Split S2, S3, S4, Clicks, Gallop, Rub, Bruit Murmur: No: Systolic Murmur, Diastolic Murmur Musculoskeletal: Yes: WNL Extremities: Yes: WNL Edema: No Peripheral Pulses WNL: Yes Peripheral Pulses: 2+ Left Doralis Pedis, 2+ Right Dorsalis Pedis Neurological: Yes: Alert, Oriented Psychiatric: Yes: Alert, Oriented - Other Data Labs, Other Data: CBC, BMP 06/27/18 03:00 06/27/18 03:00 INR, PTT INR 1.78 (0.83-1.09) H 06/27/18 03:00 Troponin, BNP 06/27/18 06/27/18 03:00 08:30 Troponin I < 0.02 < 0.02 Troponin, BNP 06/27/18 06/27/18 03:00 08:30 Troponin I < 0.02 < 0.02 ekg-nsr 96bpm, no sig st abnl Echo: Report Reviewed Imaging - Results Chest X-ray: Report Reviewed, Image Reviewed EKG: Report Reviewed, Image Reviewed Other: Report Reviewed, Image Reviewed Assessment/Plan 73 year old woman with pmh Sickle cell disease, COPD, Afib on eliquis, HTN, h/o DVT/PE on eliquis, prior admissions for atypical chest pain, now admitted with abdominal pain radiating up to the epigastrum and back and noted to have CAESAR with concern for urinary retention. states she has had trouble emptying her bladder recently. denies any significant chest pain. no sob, palpitations, pnd, orthopnea, or LE edema. Abd pain-no sig chest pain -not c/w ACS -symptoms do not appear cardiac in origin -no ischemia on ekg -cardiac enzymes wnl -ECHO 06/27/18-hypokinetic RV, Hyperdynamic LV systolic function, mild valvular abnl -does not require additional inpatient cardiac work up at this time. would not pursue an ischemic evaluation at this time, can be followed as outpatient Pafib-NSR on admission -eliquis held due to CAESAR -not urgent to start bridging AC for AFib at this time but if needed for treatment of prior DVT/PE then can start -need to re-evaluate AC plan prior to discharge if creatinine improves RV hypokinesis -presume due to prior PE -eliquis was held due to CAESAR -would confirm when DVT/PE was and where it was treated. -obtain prior echo report if available and compare -consider alternative AC at this point ie Heparin gtt
--- NOTE | 2018-06-27 11:14 | ECHO ---
Version: 1 Name: SAY ROSARIO Exam: Adult Echocardiogram Study Date: 06/27/2018, 8:09 AM Age: 73 Years MMode/2D Measurements & Calculations IVSd: 0.73 cm LVIDs: 2.8 cm LVIDd: 4.3 cm LVPWd: 0.71 cm LVOT diam: 1.98 cm Ao root diam: 2.16 cm LA dimension: 3.0 cm Doppler Measurements & Calculations MV E max monico: 83.9 cm/sec Med E/e': 11.4 MV A max monico: 95.8 cm/sec Med Peak E' Monico: 7.4 cm/sec MV E/A: 0.88 Lat E/e': 6.3 Lat Peak E' Monico: 13.4 cm/sec Ao max P.3 mmHg GEENA(I,D): 2.7 cm Ao mean P.2 mmHg LV V1 mean: 109.9 cm/sec Ao V2 max: 160.7 cm/sec LV V1 mean P.2 mmHg PI end-d monico: 152.7 cm/sec TR max monico: 262.5 cm/sec TR max P.6 mmHg Left Ventricle The left ventricle is hyperdynamic. Right Ventricle The right ventricle is moderately dilated. Hypokinetic RV. Atria The left atrium is mildly dilated. Right atrium not well visualized. Mitral Valve There is mild mitral annular calcification. There is mild mitral regurgitation. Tricuspid Valve The tricuspid valve is not well visualized. There is mild tricuspid regurgitation. Aortic Valve The aortic valve is normal in structure and function. Pulmonic Valve The pulmonic valve is not well visualized. Great Vessels The aortic root is normal size. Normal aortic arch, descending and ascending aorta. Pericardium/Pleura There is no pericardial effusion. Summary Statements Mat Chavez 06/27/2018, 10:14 AM Ordering Physician: Perla Garcia Referring Physician: HE DUONG Performed By: Mari Ren
--- NOTE | 2018-06-27 13:32 | EKG ---
Test Reason : Blood Pressure : / mmHG Vent. Rate : 096 BPM Atrial Rate : 096 BPM P-R Int : 136 ms QRS Dur : 076 ms QT Int : 320 ms P-R-T Axes : 015 -16 008 degrees QTc Int : 404 ms POOR DATA QUALITY, INTERPRETATION MAY BE ADVERSELY AFFECTED NORMAL SINUS RHYTHM NORMAL ECG WHEN COMPARED WITH ECG OF 07-JUN-2018 02:10, NO SIGNIFICANT CHANGE WAS FOUND Confirmed by MD JL, JAVIER ([id number]) on 06/27/2018 1:32:27 PM Referred By: Confirmed By:JAVIER PARIKH MD
[2018-06-27 14:04] LABS: EPI CELLS 2.9 /HPF (0-5/HPF); HYALINE CASTS 14 /lpf (0-8); URINE APPEARANCE CLEAR; URINE BACTERIA 10.8 /hpf (NEGATIVE); URINE BILIRUBIN NEGATIVE (NEGATIVE); URINE COLOR YELLOW; URINE GLUCOSE (UA) NEGATIVE (NEGATIVE); URINE KETONE NEGATIVE (NEGATIVE); URINE LEUK ESTERASE TRACE (NEGATIVE); URINE NITRITE NEGATIVE (NEGATIVE); URINE PROTEIN NEGATIVE (NEGATIVE); URINE RBC 1 /hpf (0-4); URINE WBC 1 /hpf (0-5)
--- NOTE | 2018-06-27 16:57 | PN ---
Progress Note, Physician Chief Complaint: Chest pain DVT/PE Acute Renal Failure History of Present Illness: Previous notes and events reviewed awake and alert NAD denies chest pain or SOB - Current Medication List Current Medications: Active Medications Albuterol Sulfate (Ventolin 0.083% Nebulizer Soln -) 1 amp NEB Q4H PRN PRN Reason: SHORT OF BREATH/WHEEZING Albuterol/Ipratropium (Duoneb -) 1 amp NEB RQID [facility] Last Admin: 06/27/18 08:30 Dose: 1 amp Atenolol (Tenormin -) 25 mg PO DAILY [facility] Last Admin: 06/27/18 10:27 Dose: 25 mg Cholecalciferol (Vitamin D3 -) 1,000 unit PO DAILY [facility] Last Admin: 06/27/18 10:27 Dose: 1,000 unit Docusate Sodium (Colace -) 100 mg PO DAILY [facility] Last Admin: 06/27/18 10:27 Dose: 100 mg Duloxetine HCl (Cymbalta -) 30 mg PO BID [facility] Last Admin: 06/27/18 10:27 Dose: 30 mg Folic Acid (Folic Acid -) 1 mg PO DAILY [facility] Last Admin: 06/27/18 10:27 Dose: 1 mg Gabapentin (Neurontin -) 300 mg PO BID [facility] Last Admin: 06/27/18 10:27 Dose: 300 mg Heparin Sodium (Porcine) (Heparin -) 5,000 unit SQ TID [facility] Last Admin: 06/27/18 06:56 Dose: 5,000 unit Sodium Chloride (Normal Saline -) 1,000 mls @ 75 mls/hr IV ASDIR [facility] Last Admin: 06/27/18 06:55 Dose: 75 mls/hr Montelukast Sodium (Singulair -) 10 mg PO [facility] Oxycodone HCl (Oxycontin -) 40 mg PO BID [facility] Last Admin: 06/27/18 10:27 Dose: 40 mg - Objective Vital Signs: Vital Signs Temperature 98.2 F 06/27/18 15:00 Pulse Rate 103 H 06/27/18 15:00 Respiratory Rate 22 H 06/27/18 15:00 Blood Pressure 123/70 06/27/18 15:00 O2 Sat by Pulse Oximetry (%) 100 06/27/18 15:00 Constitutional: Yes: No Distress, Calm Eyes: Yes: Conjunctiva Clear HENT: Yes: Atraumatic Cardiovascular: Yes: Regular Rate and Rhythm Respiratory: Yes: Regular, CTA Bilaterally Gastrointestinal: Yes: Normal Bowel Sounds, Soft Genitourinary: Yes: Avendano Present Musculoskeletal: Yes: WNL Extremities: Yes: WNL Edema: No Neurological: Yes: Alert, Oriented Psychiatric: Yes: Alert, Oriented Labs: CBC, BMP 06/27/18 03:00 06/27/18 03:00 INR, PTT INR 1.78 (0.83-1.09) H 06/27/18 03:00 - ....Imaging Chest X-ray: Report Reviewed Cat Scan: Report Reviewed Ultrasound: Report Reviewed Problem List - Problems (1) GUCCI (acute kidney injury) Assessment/Plan: -renal on board -BUN/Cr 35/6.0 -Renal US shows no hydronephrosis or stones, left renal cyst 1.9 cm -monitor renal function -IV hydration Code(s): N17.9 - ACUTE KIDNEY FAILURE, UNSPECIFIED (2) Chest pain Assessment/Plan: -tele monitoring -cardiology on board -trop neg x 2 -Echo performed Code(s): R07.9 - CHEST PAIN, UNSPECIFIED (3) Pulmonary embolism Assessment/Plan: -cardiology on board -Chest CT scan shows no PE -Eliquis on hold due to elevated Cr -will start on Heparin drip Code(s): I26.99 - OTHER PULMONARY EMBOLISM WITHOUT ACUTE COR PULMONALE (4) HTN (hypertension) Assessment/Plan: -Atenolol -low Na diet Code(s): I10 - ESSENTIAL (PRIMARY) HYPERTENSION Qualifiers: Hypertension type: essential hypertension Qualified Code(s): I10 - Essential (primary) hypertension (5) Leukocytosis Assessment/Plan: -WBC 14.1 -has hx of taking prednisone, if show uptrend will consult ID -UC pending Code(s): D72.829 - ELEVATED WHITE BLOOD CELL COUNT, UNSPECIFIED Assessment/Plan see problem list dvt ppx
[2018-06-27] MEDS ORDERED: HEPARIN NA (PORCINE) 5,000 UNITS/ML 1ML VIAL IVPUSH PRN ×2 (17:07)
[2018-06-27] MEDS: HEPARIN - 25,000 UNIT in SODIUM CHLORIDE 495 ML IV SCH (19:45)
[2018-06-27] MEDS ORDERED: oxyCODONE HCL 20 MG SUSTAINED ACTING TABLET PO SCH (22:18)
[2018-06-27] MEDS: MONTELUKAST NA 10 MG TABLET PO SCH (22:23)
[2018-06-27] MEDS: oxyCODONE HCL 20 MG SUSTAINED ACTING TABLET PO SCH (22:24)
[2018-06-28] MEDS: SODIUM CHLORIDE 1,000 ML IV SCH (06:45)
[2018-06-28 07:43] LABS: ALBUMIN 2.6 g/dl (3.4-5.0); BILIRUBIN,TOTAL 0.8 mg/dL (0.2-1); CALCIUM 8.3 mg/dL (8.5-10.1); CREATININE 1.9 mg/dL (0.55-1.3); POTASSIUM 4.1 mmol/L (3.5-5.1)
[2018-06-28] MEDS: ALBUTEROL SO4 2.5/IPRATROPIUM 0.5 INH SOL 3 ML VIAL.NEB. NEB SCH ×4 (08:20→21:02)
[2018-06-28] MEDS: oxyCODONE HCL 20 MG SUSTAINED ACTING TABLET PO SCH ×2 (09:24→22:12)
[2018-06-28] MEDS: GABAPENTIN 300 MG CAPSULE (FP) PO SCH ×2 (09:25→22:12)
[2018-06-28] MEDS: ATENOLOL 25 MG TABLET (FP) PO SCH (09:25)
[2018-06-28] MEDS: FOLIC ACID 1 MG TABLET (FP) PO SCH (09:25)
[2018-06-28] MEDS: DULoxetine HCL 30 MG CAPSULE.DR PO SCH ×2 (09:26→22:12)
[2018-06-28] MEDS: CHOLECALCIFEROL (VIT D3) 1,000 UNIT (25 MCG) TABLET PO SCH (09:26)
[2018-06-28] MEDS: DOCUSATE SODIUM 100 MG CAPSULE (FP) PO SCH (09:26)
[2018-06-28] MEDS: HEPARIN - 25,000 UNIT in SODIUM CHLORIDE 495 ML IV SCH (09:30)
--- NOTE | 2018-06-28 11:16 | PN ---
Progress Note, Physician Chief Complaint: Chest pain SOB History of Present Illness: Denies any SOB or chest pain at the moment. Came in to ER due to Epigastric pain that was shooting through to the back Last admission 2 weeks ago for light headedness Admitted on 05/30/18 for URI Poor historian Dangelo inserted in ER for bladder distention, unsure if bladder scan was done - Current Medication List Current Medications: Active Medications Albuterol Sulfate (Ventolin 0.083% Nebulizer Soln -) 1 amp NEB Q4H PRN PRN Reason: SHORT OF BREATH/WHEEZING Albuterol/Ipratropium (Duoneb -) 1 amp NEB RQID [facility] Last Admin: 06/27/18 21:03 Dose: 1 amp Apixaban (Eliquis -) 2.5 mg PO BID [facility] Atenolol (Tenormin -) 25 mg PO DAILY [facility] Last Admin: 06/28/18 09:25 Dose: 25 mg Cholecalciferol (Vitamin D3 -) 1,000 unit PO DAILY [facility] Last Admin: 06/28/18 09:26 Dose: 1,000 unit Docusate Sodium (Colace -) 100 mg PO DAILY [facility] Last Admin: 06/28/18 09:26 Dose: 100 mg Duloxetine HCl (Cymbalta -) 30 mg PO BID [facility] Last Admin: 06/28/18 09:26 Dose: 30 mg Folic Acid (Folic Acid -) 1 mg PO DAILY [facility] Last Admin: 06/28/18 09:25 Dose: 1 mg Gabapentin (Neurontin -) 300 mg PO BID [facility] Last Admin: 06/28/18 09:25 Dose: 300 mg Sodium Chloride (Normal Saline -) 1,000 mls @ 75 mls/hr IV ASDIR [facility] Last Admin: 06/28/18 06:45 Dose: 75 mls/hr Montelukast Sodium (Singulair -) 10 mg PO HS [facility] Last Admin: 06/27/18 22:23 Dose: 10 mg Oxycodone HCl (Oxycontin -) 40 mg PO BID [facility] Last Admin: 06/28/18 09:24 Dose: 40 mg - Objective Vital Signs: Vital Signs Temperature 97.7 F 06/28/18 10:00 Pulse Rate 87 06/28/18 10:00 Respiratory Rate 18 06/28/18 10:00 Blood Pressure 123/65 06/28/18 10:00 O2 Sat by Pulse Oximetry (%) 100 06/28/18 09:00 Constitutional: Yes: Well Nourished, No Distress, Calm Cardiovascular: Yes: Regular Rate and Rhythm Respiratory: Yes: Regular, Rhonchi (RUL) Gastrointestinal: Yes: Normal Bowel Sounds, Soft, Abdomen, Obese Genitourinary: Yes: WNL Musculoskeletal: Yes: WNL Extremities: Yes: WNL Edema: No Peripheral Pulses WNL: Yes Neurological: Yes: Alert, Oriented Psychiatric: Yes: Alert, Oriented Labs: CBC, BMP 06/27/18 03:00 06/28/18 05:30 INR, PTT INR 1.78 (0.83-1.09) H 06/27/18 03:00 Problem List - Problems (1) History of pulmonary embolism Assessment/Plan: -Compliant with Eliquis at home -Couldn't do CTA 2/2 to elevated Cr -V/Q Scan -Pulmonary and hematology consult Code(s): Z86.711 - PERSONAL HISTORY OF PULMONARY EMBOLISM (2) HTN (hypertension) Assessment/Plan: -resume home meds -cardiology consult Code(s): I10 - ESSENTIAL (PRIMARY) HYPERTENSION Qualifiers: Hypertension type: essential hypertension Qualified Code(s): I10 - Essential (primary) hypertension (3) COPD exacerbation Assessment/Plan: -Pulmonary consult -Nasal O2 PRN -Bronchodilators -CT chest reviewed-unremarkable Code(s): J44.1 - CHRONIC OBSTRUCTIVE PULMONARY DISEASE W (ACUTE) EXACERBATION (4) GUCCI (acute kidney injury) Assessment/Plan: -nephrology consult -2/2 to Urinary retention? -Monitor cr trend -IVF Code(s): N17.9 - ACUTE KIDNEY FAILURE, UNSPECIFIED (5) Chest pain Assessment/Plan: -Resolved -Seen by Cardiology -not c/w ACS -symptoms do not appear cardiac in origin -no ischemia on ekg -cardiac enzymes wnl -ECHO 06/27/18-hypokinetic RV, Hyperdynamic LV systolic function, mild valvular abnl -does not require additional inpatient cardiac work up at this time. would not pursue an ischemic evaluation at this time, can be followed as outpatient Code(s): R07.9 - CHEST PAIN, UNSPECIFIED (6) Diabetes Assessment/Plan: -Last A1c at 8.0 on 06/09/18 -not on any meds at home? -BGM AC HS -Novolog sliding scale -start Levemir at 10 U HS -endocrine consult -diabetic/low sodium diet Code(s): E11.9 - TYPE 2 DIABETES MELLITUS WITHOUT COMPLICATIONS (7) Leukocytosis Assessment/Plan: -Chronic -2/2 sickle cell -hematology involved Code(s): D72.829 - ELEVATED WHITE BLOOD CELL COUNT, UNSPECIFIED (8) Afib Assessment/Plan: -Resum Eliquis at 2.5 mg po bid -d/c heparin drip -Were unable to do CTA 2/2 to GUCCI, would do V/Q scan if suspicious for another PE -Hematology and pulmonary consult -Seen by Cardiology Code(s): I48.91 - UNSPECIFIED ATRIAL FIBRILLATION Qualifiers: Atrial fibrillation type: paroxysmal Qualified Code(s): I48.0 - Paroxysmal atrial fibrillation (9) Urinary retention Assessment/Plan: -start flomax 0.4 mg po daily -d/c dangelo in 24 hours -bladder scan 12 hours post dangelo discontinuation -reinsert dangelo if retaining> 300 ml Code(s): R33.9 - RETENTION OF URINE, UNSPECIFIED Assessment/Plan see problem list Physical therapy
--- NOTE | 2018-06-28 12:21 | PN ---
Progress Note (short form) - Note Progress Note: PULMONARY CONSULTATION DICTATED 06/28/18 IMP CHEST PAIN ? ETIOLOGY ? SECONDARY TO SICKLE CELL ACUTE KIDNEY INJURY COPD/ASTHMA H/O PE/DVT H/O SICKLE CELL DISEASE RV DYSFUNCTION PAF DM HTN PLAN IVF ANALGESICS O2 NEEDED LUNG SCAN INHALED BRONCHODILATORS MONITOR LYTES,RENAL FUNCTION DR PANDEY Problem List - Problems (1) Acute renal failure Code(s): N17.9 - ACUTE KIDNEY FAILURE, UNSPECIFIED (2) History of pulmonary embolism Code(s): Z86.711 - PERSONAL HISTORY OF PULMONARY EMBOLISM (3) Asthma Code(s): J45.909 - UNSPECIFIED ASTHMA, UNCOMPLICATED (4) Chest pain Code(s): R07.9 - CHEST PAIN, UNSPECIFIED (5) Diabetes Code(s): E11.9 - TYPE 2 DIABETES MELLITUS WITHOUT COMPLICATIONS (6) Pulmonary embolism Code(s): I26.99 - OTHER PULMONARY EMBOLISM WITHOUT ACUTE COR PULMONALE (7) Sickle cell anemia Code(s): D57.1 - SICKLE-CELL DISEASE WITHOUT CRISIS Qualifiers: Sickle-cell associated disorders: without crisis Qualified Code(s): D57.1 - Sickle-cell disease without crisis (8) HTN (hypertension) Code(s): I10 - ESSENTIAL (PRIMARY) HYPERTENSION Qualifiers: Hypertension type: essential hypertension Qualified Code(s): I10 - Essential (primary) hypertension
--- NOTE | 2018-06-28 13:05 | CONS ---
PULMONARY CONSULTATION DATE OF CONSULTATION: 06/28/2018 REFERRING PHYSICIAN: Pedro Mathur MD HISTORY OF PRESENT ILLNESS: The patient is a 73-year-old black female known to me from previous hospitalization with past medical history of sickle cell disease, chronic kidney injury, COPD, paroxysmal atrial fibrillation on anticoagulation, history of PE/DVT and maintained on anticoagulation, nonsmoker, admitted to [facility] with complaint of epigastric pain radiating to the chest. The patient denied any nausea or vomiting. Patient states that she also complained of lower abdominal pain and inability to void completely over the past week or so. She denies any flank pain. Denies any dysuria. Of note is the patient on admission was noted to be in acute renal failure with a creatinine of 6, previous was 0.8 on June 14. Patient was evaluated by Dr. Flores for renal consultation who felt that the patient most likely had acute urinary retention. A Avendano catheter was inserted with improvement in the creatinine with today's level being 1.9. The patient states that the pain that she has in the chest is similar to her sickle cell pain when she has had previous crisis, although it is intermittent, only 3 episodes lasting a couple seconds throughout this hospitalization. Normally, her sickle cell crisis pain is constant. She denies any fevers, chills, nausea, vomiting, any diaphoresis. Denies hemoptysis. She is a nonsmoker. There is no history of occupational exposure to chemicals or fumes. PAST MEDICAL HISTORY: Again includes: 1. Sickle cell disease. 2. History of COPD, asthma. 3. History of PE/DVT. 4. Paroxysmal atrial fibrillation. 5. Acute kidney injury REVIEW OF SYSTEMS: Positive mild shortness of breath. Positive chest pain, resolved. No fever. No chills. Positive mild epigastric pain. No nausea. No vomiting. No abdominal pain. No lower extremity edema. CURRENT MEDICATIONS: Include Eliquis, Neurontin, Cymbalta, albuterol, DuoNeb, Tenormin, Colace, normal saline, Singulair, OxyContin, folic acid, and vitamin D3. PHYSICAL EXAMINATION: General: The patient is a well-developed, well-nourished female, awake, alert, in no acute distress. Vital Signs: She is afebrile, heart rate is 87, blood pressure is 123/65, respiratory rate is 18, O2 saturation is 100% on room air. HEENT: Exam is normocephalic, atraumatic. Neck: Supple. Heart: Regular S1 and S2. Chest: Clear. Abdomen: Soft. Bowel sounds are positive. Extremities: No cyanosis, edema. LABORATORIES: Bun 28, creatinine 1.9; initially on admission was BUN 35, creatinine 6. Alkaline phosphatase is 124. INR is 1.78. WBC is 14.1, hemoglobin 10.2, hematocrit 31, platelet count of 457,000. Chest CT: No infiltrates and no effusions, elevated right hemidiaphragm with some mild compressive atelectasis the right base. Duplex lower extremities: No evidence of DVT. Renal ultrasound: Left simple renal cyst. Echo: Moderately dilated right ventricle, hyperkinetic right ventricle, left ventricle hyperdynamic. IMPRESSION: 1. Chest pain. Questionable etiology. Possibly secondary to sickle cell disease. Cannot exclude PE, though not likely due to patient being currently on anticoagulation. 2. Acute on chronic kidney injury. 3. Right ventricle dysfunction. 4. Chronic obstructive pulmonary disease/asthma. 5. History of PE/DVT. 6. Paroxysmal atrial fibrillation. PLAN: IV fluids. Analgesics. Supplemental O2. VQ scan. Monitor electrolytes and renal function.Julia PANDEY M.D. THONG/[id number] MTDD
[2018-06-28 13:16] LABS: HEMATOCRIT 28.8 % (32.4-45.2); HEMOGLOBIN 9.5 GM/dL (10.7-15.3); MCH 27.6 pg (25.7-33.7); MCHC 33.1 g/dl (32.0-36.0); MEAN CELL VOLUME 83.5 fl (80-96); MEAN PLT VOLUME 8.4 fl (7.5-11.1); PLATELET COUNT 480 K/MM3 (134-434); RBC 3.46 M/mm3 (3.60-5.2); RDW 18.5 % (11.6-15.6)
[2018-06-28 14:17] LABS: ANISOCYTOSIS 1+; MACROCYTOSIS 1+; PLATELET ESTIMATE NORMAL; TARGET CELLS 2+
[2018-06-28 14:28] LABS: CALCIUM 8.4 mg/dL (8.5-10.1); CREATININE 1.5 mg/dL (0.55-1.3); POTASSIUM 4.6 mmol/L (3.5-5.1)
--- NOTE | 2018-06-28 16:11 | PN ---
Progress Note, Physician Chief Complaint: Telem NSR No chest pain History of Present Illness: 73 year old woman with pmh Sickle cell disease, COPD, Afib on eliquis, HTN, h/o DVT/PE on eliquis, prior admissions for atypical chest pain, now admitted with abdominal pain radiating up to the epigastrum and back and noted to have CAESAR with concern for urinary retention. Pt seen and examined today in nad. states she has had trouble emptying her bladder recently. denies any significant chest pain. no sob, palpitations, pnd, orthopnea, or LE edema. - Current Medication List Current Medications: Active Medications Albuterol Sulfate (Ventolin 0.083% Nebulizer Soln -) 1 amp NEB Q4H PRN PRN Reason: SHORT OF BREATH/WHEEZING Albuterol/Ipratropium (Duoneb -) 1 amp NEB RQID [facility] Last Admin: 06/28/18 12:13 Dose: 1 amp Apixaban (Eliquis -) 2.5 mg PO BID [facility] Atenolol (Tenormin -) 25 mg PO DAILY [facility] Last Admin: 06/28/18 09:25 Dose: 25 mg Cholecalciferol (Vitamin D3 -) 1,000 unit PO DAILY [facility] Last Admin: 06/28/18 09:26 Dose: 1,000 unit Docusate Sodium (Colace -) 100 mg PO DAILY [facility] Last Admin: 06/28/18 09:26 Dose: 100 mg Duloxetine HCl (Cymbalta -) 30 mg PO BID [facility] Last Admin: 06/28/18 09:26 Dose: 30 mg Folic Acid (Folic Acid -) 1 mg PO DAILY [facility] Last Admin: 06/28/18 09:25 Dose: 1 mg Gabapentin (Neurontin -) 300 mg PO BID [facility] Last Admin: 06/28/18 09:25 Dose: 300 mg Sodium Chloride (Normal Saline -) 1,000 mls @ 75 mls/hr IV ASDIR [facility] Last Admin: 06/28/18 06:45 Dose: 75 mls/hr Montelukast Sodium (Singulair -) 10 mg PO HS [facility] Last Admin: 06/27/18 22:23 Dose: 10 mg Oxycodone HCl (Oxycontin -) 40 mg PO BID [facility] Last Admin: 06/28/18 09:24 Dose: 40 mg - Objective Vital Signs: Vital Signs Temperature 97.7 F 05/22/19 10:00 Pulse Rate 87 06/28/18 10:00 Respiratory Rate 18 06/28/18 10:00 Blood Pressure 123/65 06/28/18 10:00 O2 Sat by Pulse Oximetry (%) 100 06/28/18 09:00 Constitutional: Yes: Well Nourished, No Distress Eyes: Yes: Conjunctiva Clear, EOM Intact HENT: Yes: Atraumatic, Normocephalic Neck: Yes: Supple, Trachea Midline Cardiovascular: Yes: Regular Rate and Rhythm, S1, S2. No: JVD Respiratory: Yes: Regular, CTA Bilaterally Edema: No Labs: CBC, BMP 06/28/18 12:28 06/28/18 13:30 INR, PTT INR 1.78 (0.83-1.09) H 06/27/18 03:00 Problem List - Problems (1) Acute renal failure Code(s): N17.9 - ACUTE KIDNEY FAILURE, UNSPECIFIED (2) Afib Code(s): I48.91 - UNSPECIFIED ATRIAL FIBRILLATION Qualifiers: Atrial fibrillation type: paroxysmal Qualified Code(s): I48.0 - Paroxysmal atrial fibrillation Assessment/Plan 73 year old woman with pmh Sickle cell disease, COPD, Afib on eliquis, HTN, h/o DVT/PE on eliquis, prior admissions for atypical chest pain, now admitted with abdominal pain radiating up to the epigastrum and back and noted to have CAESAR with concern for urinary retention. states she has had trouble emptying her bladder recently. denies any significant chest pain. no sob, palpitations, pnd, orthopnea, or LE edema. Abd pain-no sig chest pain -not c/w ACS -symptoms do not appear cardiac in origin -no ischemia on ekg -cardiac enzymes wnl -ECHO 06/27/18-hypokinetic RV, Hyperdynamic LV systolic function, mild valvular abnl -does not require additional inpatient cardiac work up at this time. would not pursue an ischemic evaluation at this time, can be followed as outpatient Pafib-NSR on admission -eliquis held due to CAESAR -Cr improved. Resume Eliquis. RV hypokinesis Follow VQ scan results Can DC telemetry.
--- NOTE | 2018-06-28 17:53 | CONSULT ---
Consultation: REQUESTING PROVIDER: CONSULT REQUEST: We have been asked to medically evaluate this patient for history of PE and SC sickle cell . HISTORY OF PRESENT ILLNESS: 73 y/o woman with a PMHx of COPD (home O2), treated with steroids,HTN, PE/DVT ( on Eliquis), Sickle Cell Anemia, Chronic Back Pain, who presented due to L groin pain and chest pain with sob. recently discharged s/p treatment for sickle crisis which involved foot pain. found to have GUCCI, ASC ruled out by cardiology. states that her crisis usually manifests as ascending foot pain, never as isolated groin pain. does reported dark urine. cp and sob now resolved. denies cough, pleuritic pain, hemoptysis, palpitations. REVIEW OF SYSTEMS: CONSTITUTIONAL: Absent: fever, chills HEENT: Absent: rhinorrhea, nasal congestion, throat pain, visual changes CARDIOVASCULAR: Absent: chest pain, syncope, palpitations, lightheadedness RESPIRATORY: Absent: cough, shortness of breath, hemoptysis GASTROINTESTINAL: Absent: abdominal pain, abdominal distension, nausea, vomiting, diarrhea, constipation, melena, hematochezia GENITOURINARY: Absent: dysuria, hematuria + dark urine MUSCULOSKELETAL: Absent: myalgia, arthralgia, joint swelling SKIN: Absent: rash, itching, pallor HEMATOLOGIC/IMMUNOLOGIC: Absent: easy bleeding, easy bruising ENDOCRINE: Absent: heat intolerance, cold intolerance NEUROLOGIC: Absent: headache, focal weakness or paresthesias PSYCHIATRIC: Absent: anxiety, depression PHYSICAL EXAMINATION Vital Signs - 24 hr 06/27/18 06/27/18 06/27/18 18:00 21:00 22:00 Temperature 98.5 F 98.9 F Pulse Rate 88 90 Respiratory 20 19 Rate Blood Pressure 117/69 120/62 O2 Sat by Pulse 100 Oximetry (%) 06/28/18 06/28/18 06/28/18 02:00 06:00 09:00 Temperature 98.7 F 98.8 F Pulse Rate 86 86 Respiratory 20 18 18 Rate Blood Pressure 98/55 L 110/54 L O2 Sat by Pulse 100 Oximetry (%) 06/28/18 10:00 Temperature 97.7 F Pulse Rate 87 Respiratory 18 Rate Blood Pressure 123/65 O2 Sat by Pulse Oximetry (%) GENERAL: Awake, alert, and fully oriented, in no acute distress. HEAD: Normal with no signs of trauma. EYES: extraocular movements intact, sclera anicteric, conjunctiva clear. EARS, NOSE, THROAT: Moist mucous membranes. NECK:supple LUNGS: Breath sounds equal, clear to auscultation bilaterally HEART: Regular rate and rhythm, normal S1 and S2 ABDOMEN: Soft, nontender, not distended, normoactive bowel sounds, no masses. MUSCULOSKELETAL: No CVA tenderness. LOWER EXTREMITIES: 2+ pulses, warm, well-perfused. No calf tenderness. No peripheral edema. NEUROLOGICAL: Cranial nerves II-XII grossly intact. Normal speech. PSYCHIATRIC: Cooperative. Good eye contact. Appropriate mood and affect. SKIN: Warm, dry Laboratory Results - last 24 hr 06/28/18 06/28/18 06/28/18 01:45 05:30 08:45 WBC RBC Hgb Hct MCV MCH MCHC RDW Plt Count MPV Absolute Neuts (auto) Neutrophils % Neutrophils % (Manual) Band Neutrophils % Lymphocytes % Lymphocytes % (Manual) Monocytes % (Manual) Eosinophils % (Manual) Basophils % (Manual) Myelocytes % (Man) Promyelocytes % (Man) Blast Cells % (Manual) Nucleated RBC % Metamyelocytes Hypochromia Platelet Estimate Polychromasia Poikilocytosis Anisocytosis Microcytosis Macrocytosis Target Cells PTT (Actin FS) 37.0 H 43.8 H D-Dimer Sodium 141 Potassium 4.1 Chloride 109 H Carbon Dioxide 26 Anion Gap 7 L BUN 28 H Creatinine 1.9 H Est GFR (CKD-EPI)AfAm 29.58 Est GFR (CKD-EPI)NonAf 25.52 Random Glucose 103 Calcium 8.3 L Total Bilirubin 0.8 AST 19 ALT 8 L Alkaline Phosphatase 124 H Total Protein 6.0 L Albumin 2.6 L 06/28/18 06/28/18 06/28/18 12:28 12:28 13:30 WBC 11.0 H RBC 3.46 L Hgb 9.5 L Hct 28.8 L MCV 83.5 MCH 27.6 MCHC 33.1 RDW 18.5 H Plt Count 480 H MPV 8.4 Absolute Neuts (auto) 6.0 Neutrophils % No Result Required. Neutrophils % (Manual) 68.0 Band Neutrophils % 0.0 Lymphocytes % No Result Required. Lymphocytes % (Manual) 24.7 D Monocytes % (Manual) 2 L Eosinophils % (Manual) 0.0 D Basophils % (Manual) 0.0 Myelocytes % (Man) 0 Promyelocytes % (Man) 0 Blast Cells % (Manual) 0 Nucleated RBC % 3 H Metamyelocytes 0 Hypochromia 0 Platelet Estimate Normal Polychromasia 1+ Poikilocytosis 1+ Anisocytosis 1+ Microcytosis 1+ Macrocytosis 1+ Target Cells 2+ PTT (Actin FS) D-Dimer 580 H Sodium 139 Potassium 4.6 Chloride 107 Carbon Dioxide 28 Anion Gap 5 L BUN 23 H Creatinine 1.5 H Est GFR (CKD-EPI)AfAm 39.37 Est GFR (CKD-EPI)NonAf 33.97 Random Glucose 104 Calcium 8.4 L Total Bilirubin AST ALT Alkaline Phosphatase Total Protein Albumin Active Medications Generic Name Dose Route Start Last Admin Trade Name Freq PRN Reason Stop Dose Admin Albuterol Sulfate 1 amp 06/27/18 04:59 Ventolin 0.083% Nebulizer Soln - NEB Q4H PRN SHORT OF BREATH/WHEEZING Albuterol/Ipratropium 1 amp 06/27/18 08:00 06/28/18 12:13 Duoneb - NEB 1 amp RQID SOR[facility]A Administration Apixaban 2.5 mg 06/28/18 22:00 Eliquis - PO BID [facility] Atenolol 25 mg 06/27/18 10:00 06/28/18 09:25 Tenormin - PO 25 mg DAILY [facility] Administration Cholecalciferol 1,000 unit 06/27/18 10:00 06/28/18 09:26 Vitamin D3 - PO 1,000 unit DAILY [facility] Administration Docusate Sodium 100 mg 06/27/18 10:00 06/28/18 09:26 Colace - PO 100 mg DAILY [facility] Administration Duloxetine HCl 30 mg 06/27/18 10:00 06/28/18 09:26 Cymbalta - PO 30 mg BID [facility] Administration Folic Acid 1 mg 06/27/18 10:00 06/28/18 09:25 Folic Acid - PO 1 mg DAILY [facility] Administration Gabapentin 300 mg 06/27/18 10:00 06/28/18 09:25 Neurontin - PO 300 mg BID [facility] Administration Sodium Chloride 1,000 mls @ 75 mls/hr 06/27/18 05:45 06/28/18 06:45 Normal Saline - IV 75 mls/hr ASDIR [facility] Administration Montelukast Sodium 10 mg 06/27/18 22:00 06/27/18 22:23 Singulair - PO 10 mg HS [facility] Administration Oxycodone HCl 40 mg 06/27/18 22:30 06/28/18 09:24 Oxycontin - PO 40 mg BID [facility] Administration ASSESSMENT/PLAN: This is a 73 yp F with PMH of Hgb SC disease, COPD, Asthma, PE on eliquis, admitted with cp, gucci, thigh pain SC disease r/o crisis normocytic anemia stable cp gucci copd ecxacerbation asthma h/o PE/dvt on eliquis -hemolysis workup -on folate -would add azithromycin for copd exacerbation Dispo: We will continue to follow the patient. Thank you for this consultative opportunity. Problem List - Problems (1) Acute renal failure Code(s): N17.9 - ACUTE KIDNEY FAILURE, UNSPECIFIED (2) Bright red blood per rectum Code(s): K62.5 - HEMORRHAGE OF ANUS AND RECTUM (3) COPD exacerbation Code(s): J44.1 - CHRONIC OBSTRUCTIVE PULMONARY DISEASE W (ACUTE) EXACERBATION (4) Pulmonary embolism during treatment with long-term anticoagulation therapy Code(s): I26.99 - OTHER PULMONARY EMBOLISM WITHOUT ACUTE COR PULMONALE; Z79.01 - HALFWAY (CURRENT) USE OF ANTICOAGULANTS (5) Sickle cell anemia Code(s): D57.1 - SICKLE-CELL DISEASE WITHOUT CRISIS Qualifiers: Sickle-cell associated disorders: without crisis Qualified Code(s): D57.1 - Sickle-cell disease without crisis (6) Sickle cell crisis Code(s): D57.00 - HB-SS DISEASE WITH CRISIS, UNSPECIFIED Visit type - Emergency Visit Emergency Visit: Yes ED Registration Date: 06/28/18 Care time: The patient presented to the Emergency Department on the above date and was hospitalized for further evaluation of their emergent condition. - New Patient This patient is new to me today: No - Critical Care Critical Care patient: No
[2018-06-28] MEDS: APIXABAN 2.5 MG TABLET PO SCH (22:11)
[2018-06-28] MEDS: MONTELUKAST NA 10 MG TABLET PO SCH (22:14)
[2018-06-28] MEDS: INSULIN (LEVEMIR) 100 UNITS/ML UNITS SQ SCH (22:20)
[2018-06-29] MEDS: SODIUM CHLORIDE 1,000 ML IV SCH (05:48)
[2018-06-29] MEDS: INSULIN SLIDING SCALE (NOVOLOG) 1 VIAL SQ SCH ×4 (06:25→16:59)
[2018-06-29 07:08] LABS: EOS % 1.6 % (0-4.5); HEMATOCRIT 25.4 % (32.4-45.2); HEMOGLOBIN 8.6 GM/dL (10.7-15.3); LYMPH % 42.8 % (8-40); MCH 28.4 pg (25.7-33.7); MCHC 33.8 g/dl (32.0-36.0); MEAN CELL VOLUME 83.9 fl (80-96); MEAN PLT VOLUME 8.3 fl (7.5-11.1); MONO % 6.1 % (3.8-10.2); NEUT % 48.5 % (42.8-82.8); PLATELET COUNT 484 K/MM3 (134-434); RBC 3.03 M/mm3 (3.60-5.2); RDW 18.3 % (11.6-15.6); WHITE BLOOD COUNT 10.3 K/mm3 (4.0-10.0)
[2018-06-29] MEDS: ALBUTEROL SO4 2.5/IPRATROPIUM 0.5 INH SOL 3 ML VIAL.NEB. NEB SCH ×4 (07:52→20:35)
[2018-06-29] MEDS: TAMSULOSIN HCL 0.4 MG CAP PO SCH (09:41)
[2018-06-29] MEDS: GABAPENTIN 300 MG CAPSULE (FP) PO SCH ×2 (09:41→21:07)
[2018-06-29] MEDS: APIXABAN 2.5 MG TABLET PO SCH ×2 (09:41→21:07)
[2018-06-29] MEDS: DOCUSATE SODIUM 100 MG CAPSULE (FP) PO SCH (09:41)
[2018-06-29] MEDS: ATENOLOL 25 MG TABLET (FP) PO SCH (09:42)
[2018-06-29] MEDS: CHOLECALCIFEROL (VIT D3) 1,000 UNIT (25 MCG) TABLET PO SCH (09:42)
[2018-06-29] MEDS: DULoxetine HCL 30 MG CAPSULE.DR PO SCH ×2 (09:42→21:07)
[2018-06-29] MEDS: oxyCODONE HCL 20 MG SUSTAINED ACTING TABLET PO SCH ×2 (09:42→21:07)
[2018-06-29] MEDS: FOLIC ACID 1 MG TABLET (FP) PO SCH (09:42)
--- NOTE | 2018-06-29 12:39 | PN ---
Progress Note, Physician Chief Complaint: patient seen and examined complaining of epigastric pain - Current Medication List Current Medications: Active Medications Albuterol Sulfate (Ventolin 0.083% Nebulizer Soln -) 1 amp NEB Q4H PRN PRN Reason: SHORT OF BREATH/WHEEZING Albuterol/Ipratropium (Duoneb -) 1 amp NEB RQID [facility] Last Admin: 06/29/18 11:06 Dose: 1 amp Apixaban (Eliquis -) 2.5 mg PO BID [facility] Last Admin: 06/29/18 09:41 Dose: 2.5 mg Atenolol (Tenormin -) 25 mg PO DAILY [facility] Last Admin: 06/29/18 09:42 Dose: 25 mg Cholecalciferol (Vitamin D3 -) 1,000 unit PO DAILY [facility] Last Admin: 06/29/18 09:42 Dose: 1,000 unit Docusate Sodium (Colace -) 100 mg PO DAILY [facility] Last Admin: 06/29/18 09:41 Dose: 100 mg Duloxetine HCl (Cymbalta -) 30 mg PO BID [facility] Last Admin: 06/29/18 09:42 Dose: 30 mg Folic Acid (Folic Acid -) 1 mg PO DAILY [facility] Last Admin: 06/29/18 09:42 Dose: 1 mg Gabapentin (Neurontin -) 300 mg PO BID [facility] Last Admin: 06/29/18 09:41 Dose: 300 mg Sodium Chloride (Normal Saline -) 1,000 mls @ 75 mls/hr IV ASDIR [facility] Last Admin: 06/29/18 05:48 Dose: 75 mls/hr Insulin Aspart (Novolog Vial Sliding Scale -) 1 vial SQ TIDAC [facility]; Protocol Last Admin: 06/29/18 06:25 Dose: Not Given Insulin Detemir (Levemir Vial) 10 units SQ [facility] Last Admin: 06/28/18 22:20 Dose: 10 units Montelukast Sodium (Singulair -) 10 mg PO HS [facility] Last Admin: 06/28/18 22:14 Dose: 10 mg Oxycodone HCl (Oxycontin -) 40 mg PO BID [facility] Last Admin: 06/29/18 09:42 Dose: 40 mg Tamsulosin HCl (Flomax -) 0.4 mg PO DAILY@0830 [facility] Last Admin: 06/29/18 09:41 Dose: 0.4 mg - Objective Vital Signs: Vital Signs Temperature 98.6 F 06/29/18 10:00 Pulse Rate 90 06/29/18 10:00 Respiratory Rate 22 H 06/29/18 10:00 Blood Pressure 125/68 06/29/18 10:00 O2 Sat by Pulse Oximetry (%) 94 L 06/29/18 09:00 Constitutional: Yes: Calm Cardiovascular: Yes: Regular Rate and Rhythm, S1, S2 Respiratory: Yes: CTA Bilaterally Gastrointestinal: Yes: Normal Bowel Sounds, Soft Labs: CBC, BMP 06/29/18 05:30 06/28/18 13:30 INR, PTT INR 1.78 (0.83-1.09) H 06/27/18 03:00 Problem List - Problems (1) Diabetes Assessment/Plan: levemir 10 units HS bgm diabetic diet Code(s): E11.9 - TYPE 2 DIABETES MELLITUS WITHOUT COMPLICATIONS Qualifiers: Diabetes mellitus type: type 2 (2) Acute renal failure Assessment/Plan: renal sono noted no hydronephrosis creatinine now down to 1.5 from 6 ivf Code(s): N17.9 - ACUTE KIDNEY FAILURE, UNSPECIFIED (3) Afib Assessment/Plan: eliquis tenormin for rate control Code(s): I48.91 - UNSPECIFIED ATRIAL FIBRILLATION Qualifiers: Atrial fibrillation type: paroxysmal Qualified Code(s): I48.0 - Paroxysmal atrial fibrillation (4) History of pulmonary embolism Assessment/Plan: vq scan done- intermediate probablility of PE on eliquis doppler of legs no dvt Code(s): Z86.711 - PERSONAL HISTORY OF PULMONARY EMBOLISM (5) Urinary retention Assessment/Plan: trial of voiding dc dangelo creatinine now improved ivf flomax Code(s): R33.9 - RETENTION OF URINE, UNSPECIFIED (6) Anemia Assessment/Plan: drop in h/h could be dilutional given ivf will monitor check stool for occult heme consult Code(s): D64.9 - ANEMIA, UNSPECIFIED (7) COPD (chronic obstructive pulmonary disease) Assessment/Plan: nebulizer chest ct done no acute pathology Code(s): J44.9 - CHRONIC OBSTRUCTIVE PULMONARY DISEASE, UNSPECIFIED (8) Sickle cell anemia Assessment/Plan: monitor h/h ivf pain control oxygen as needed Code(s): D57.1 - SICKLE-CELL DISEASE WITHOUT CRISIS Qualifiers: Sickle-cell associated disorders: without crisis Qualified Code(s): D57.1 - Sickle-cell disease without crisis
[2018-06-29] MEDS ORDERED: PT OWN MED DRAWER 7, Y5N ONE (12:48)
--- NOTE | 2018-06-29 13:03 | PN ---
Progress Note (short form) - Note Progress Note: PULMONARY States chest pain has resolved. Denies shortness of breath. c/o left groin pain. Vital Signs Period Temp Pulse Resp BP Sys/Mendez Pulse Ox Last 24 Hr 98.2 F-98.7 F 87-91 20-22 105-125/55-70 94-99 Gen: NAD at rest Heart: RRR Lung: distant breath sounds Abd: soft, nontender Ext: no edema CBC, BMP 06/29/18 05:30 Active Medications Albuterol Sulfate (Ventolin 0.083% Nebulizer Soln -) 1 amp NEB Q4H PRN PRN Reason: SHORT OF BREATH/WHEEZING Albuterol/Ipratropium (Duoneb -) 1 amp NEB RQID [facility] Last Admin: 06/29/18 11:06 Dose: 1 amp Apixaban (Eliquis -) 2.5 mg PO BID [facility] Last Admin: 06/29/18 09:41 Dose: 2.5 mg Atenolol (Tenormin -) 25 mg PO DAILY [facility] Last Admin: 06/29/18 09:42 Dose: 25 mg Cholecalciferol (Vitamin D3 -) 1,000 unit PO DAILY [facility] Last Admin: 06/29/18 09:42 Dose: 1,000 unit Docusate Sodium (Colace -) 100 mg PO DAILY [facility] Last Admin: 06/29/18 09:41 Dose: 100 mg Duloxetine HCl (Cymbalta -) 30 mg PO BID [facility] Last Admin: 06/29/18 09:42 Dose: 30 mg Folic Acid (Folic Acid -) 1 mg PO DAILY [facility] Last Admin: 06/29/18 09:42 Dose: 1 mg Gabapentin (Neurontin -) 300 mg PO BID [facility] Last Admin: 06/29/18 09:41 Dose: 300 mg Sodium Chloride (Normal Saline -) 1,000 mls @ 75 mls/hr IV ASDIR [facility] Last Admin: 06/29/18 05:48 Dose: 75 mls/hr Insulin Aspart (Novolog Vial Sliding Scale -) 1 vial SQ TIDAC [facility]; Protocol Last Admin: 06/29/18 06:25 Dose: Not Given Insulin Detemir (Levemir Vial) 10 units SQ HS [facility] Last Admin: 06/28/18 22:20 Dose: 10 units Montelukast Sodium (Singulair -) 10 mg PO HS [facility] Last Admin: 06/28/18 22:14 Dose: 10 mg Oxycodone HCl (Oxycontin -) 40 mg PO BID [facility] Last Admin: 06/29/18 09:42 Dose: 40 mg Pantoprazole Sodium (Protonix -) 40 mg PO DAILY [facility] Tamsulosin HCl (Flomax -) 0.4 mg PO DAILY@0830 [facility] Last Admin: 06/29/18 09:41 Dose: 0.4 mg A/P Atypical Chest Pain resolved Sickle Cell Disease COPD h/o PE/DVT Paroxysmal Atrial Fibrillation HTN DM - continue anticoagulation - O2 to keep SpO2 >90% - rate control - inhaled bronchodilators as needed
[2018-06-29] MEDS: PANTOPRAZOLE 40 MG TABLET (FP) PO SCH (13:18)
[2018-06-29 13:32] LABS: CALCIUM 8.8 mg/dL (8.5-10.1); CREATININE 0.9 mg/dL (0.55-1.3); POTASSIUM 4.5 mmol/L (3.5-5.1)
--- NOTE | 2018-06-29 16:04 | PN ---
Progress Note (short form) - Note Progress Note: Renal follow up for GUCCI Pt seen and examined at the bedside awake and alert no acute complaints dangelo removed this am, is voiding no sob, cp, abd pain Vital Signs Temperature 98.6 F 06/29/18 10:00 Pulse Rate 90 06/29/18 10:00 Respiratory Rate 22 H 06/29/18 10:00 Blood Pressure 125/68 06/29/18 10:00 O2 Sat by Pulse Oximetry (%) 94 L 06/29/18 09:00 Intake & Output 06/26/18 06/27/18 06/28/18 06/29/18 23:59 23:59 23:59 23:59 Intake Total 240 2 900 Output Total 500 1500 1000 Balance -260 522 -100 Weight 76.657 kg NAD RRR, no M/R CTA, no rales soft, + tenderness in lower abd no LE edema CBC, BMP 06/29/18 05:30 06/29/18 12:50 Current Medications Albuterol Sulfate (Ventolin 0.083% Nebulizer Soln -) 1 amp NEB Q4H PRN PRN Reason: SHORT OF BREATH/WHEEZING Albuterol/Ipratropium (Duoneb -) 1 amp NEB RQID [facility] Last Admin: 06/29/18 11:06 Dose: 1 amp Apixaban (Eliquis -) 2.5 mg PO BID [facility] Last Admin: 06/29/18 09:41 Dose: 2.5 mg Atenolol (Tenormin -) 25 mg PO DAILY [facility] Last Admin: 06/29/18 09:42 Dose: 25 mg Cholecalciferol (Vitamin D3 -) 1,000 unit PO DAILY [facility] Last Admin: 06/29/18 09:42 Dose: 1,000 unit Docusate Sodium (Colace -) 100 mg PO DAILY [facility] Last Admin: 06/29/18 09:41 Dose: 100 mg Duloxetine HCl (Cymbalta -) 30 mg PO BID [facility] Last Admin: 06/29/18 09:42 Dose: 30 mg Folic Acid (Folic Acid -) 1 mg PO DAILY [facility] Last Admin: 06/29/18 09:42 Dose: 1 mg Gabapentin (Neurontin -) 300 mg PO BID [facility] Last Admin: 06/29/18 09:41 Dose: 300 mg Sodium Chloride (Normal Saline -) 1,000 mls @ 75 mls/hr IV ASDIR [facility] Last Admin: 06/29/18 05:48 Dose: 75 mls/hr Insulin Aspart (Novolog Vial Sliding Scale -) 1 vial SQ TIDAC [facility]; Protocol Last Admin: 06/29/18 13:17 Dose: Not Given Insulin Detemir (Levemir Vial) 10 units SQ [facility] Last Admin: 06/28/18 22:20 Dose: 10 units Montelukast Sodium (Singulair -) 10 mg PO HS [facility] Last Admin: 06/28/18 22:14 Dose: 10 mg Oxycodone HCl (Oxycontin -) 40 mg PO BID [facility] Last Admin: 06/29/18 09:42 Dose: 40 mg Pantoprazole Sodium (Protonix -) 40 mg PO DAILY [facility] Last Admin: 06/29/18 13:18 Dose: 40 mg Tamsulosin HCl (Flomax -) 0.4 mg PO DAILY@0830 [facility] Last Admin: 06/29/18 09:41 Dose: 0.4 mg 73 year old woman with hx of sickle cell diseae, COPD, Afib on A/C, PE/DVT presented complains of groin and chest pain and found to have GUCCI with Cr of 6. #GUCCI likely due to urinary retention in setting of opioids/constipation #Chest pain r/o ACS #Sickle cell disease #Anemia #hypertension #Leukocytosis Renal function with improvement back to baseline after catheter insertion now voiding w/o catheter bladder scan showed 160 cc residual but was able to void after that trend renal function and electrolytes can plan on stopping IVF in AM if able to tolerate oral diet Cardiology following pain control as needed Thank you Enrique Flores DO
[2018-06-29] MEDS: MONTELUKAST NA 10 MG TABLET PO SCH (21:07)
[2018-06-29] MEDS: INSULIN (LEVEMIR) 100 UNITS/ML UNITS SQ SCH (21:11)
--- NOTE | 2018-06-29 23:19 | CONSULT ---
Consult Consult Specialty:: endocrine Referred by:: naye hua Reason for Consultation:: diabetes mellitus type 2 - History of Present Illness Chief Complaint: high sugars History of Present Illness: 73 year old female with a past medical history of sickle cell disease (follows at the sickle cell clinic at [facility]), COPD (not on home O2 therapy), atrial fibrillation, and pulmonary embolism /DVT (on eliquis) who presents with symptoms of left groin pain,found to have edil,and new onset dabetes mellitus, she denies,polyuria and polydipsia. - Past Medical History Cardio/Vascular: Yes: Deep Vein Thrombosis, HTN, Other (PE) Pulmonary: Yes: COPD, Pulmonary Embolus Psych: Yes: Addictions, Other (Pain meds- methadone, oxycodone ) Musculoskeletal: Yes: Chronic low back pain - Past Surgical History Past Surgical History: Yes: Cholecystectomy, Hysterectomy, Joint Replacement ( bilateral hip replacements) - Alcohol/Substance Use Hx Alcohol Use: No History of Substance Use: reports: Prescription - Smoking History Smoking history: Never smoked Have you smoked in the past 12 months: No Aproximately how many cigarettes per day: 0 - Social History Usual Living Arrangement: With Spouse ADL: Independent History of Recent Travel: No Home Medications - Allergies Allergies/Adverse Reactions: Allergies Allergy/AdvReac Type Severity Reaction Status Date / Time ciprofloxacin [From Cipro] Allergy Itching Verified 06/27/18 00:31 ciprofloxacin HCl Allergy Itching Verified 06/27/18 00:31 [From Cipro] codeine [Codeine] Allergy Verified 06/27/18 00:31 levofloxacin [From Levaquin] Allergy Itching Verified 06/27/18 00:31 Penicillins Allergy Itching Verified 06/27/18 00:31 Sulfa (Sulfonamide Allergy Verified 06/27/18 00:31 Antibiotics) tetanus immune globulin Allergy Verified 06/27/18 00:31 IV DYE Allergy Uncoded 06/27/18 00:31 - Home Medications Home Medications: Ambulatory Orders Folic Acid - 1 mg PO DAILY 02/11/13 Docusate Sodium [Colace -] 100 mg PO DAILY 04/06/15 Montelukast Na [Singulair -] 10 mg PO HS 04/06/15 Losartan Potassium [Cozaar -] 50 mg PO DAILY 01/21/18 oxyCODONE SR [Oxycontin] 40 mg PO Q12H 05/21/18 Acetaminophen [Tylenol .Regular Strength -] 650 mg PO Q4H PRN tablet 05/26/18 Albuterol 0.083% Nebulizer Marichuy [Ventolin 0.083% Nebulizer Soln -] 1 amp NEB Q4H PRN amp 05/26/18 Apixaban [Eliquis -] 5 mg PO BID tablet 05/26/18 Gabapentin [Neurontin -] 300 mg PO BID capsule 06/15/18 Diltiazem HCl [Diltiazem 24Hr Cd] 180 mg PO 06/27/18 Hydrochlorothiazide [Hctz -] 12.5 mg PO BID 06/27/18 Omeprazole 20 mg PO BID 06/27/18 Prednisone [Deltasone] 20 mg PO DAILY 06/27/18 Family Disease History - Family Disease History Family Disease History: Diabetes: Mother (HTN, TIIDM, Stroke), Heart Disease: Mother, CA: Father (Lung CA), Other: Mother Review of Systems - Review of Systems Constitutional: reports: Lethargy, Weakness Eyes: reports: Blurred Vision HENT: reports: No Symptoms Neck: reports: No Symptoms Cardiovascular: reports: Shortness of Breath Respiratory: reports: Exercise Intolerance, SOB on Exertion Gastrointestinal: reports: Constipation Genitourinary: reports: No Symptoms Musculoskeletal: reports: Joint Swelling, Muscle Pain, Muscle Cramps Integumentary: reports: No Symptoms Neurological: reports: Unsteady Gait, Weakness Endocrine: reports: Unexplained Weight Gain Physical Exam Vital Signs: Vital Signs Temperature 99 F 06/29/18 21:05 Pulse Rate 92 H 06/29/18 21:05 Respiratory Rate 20 06/29/18 21:05 Blood Pressure 126/67 06/29/18 21:05 O2 Sat by Pulse Oximetry (%) 93 L 06/29/18 20:45 Constitutional: Yes: Anxious Eyes: Yes: EOM Intact HENT: Yes: Normocephalic Neck: Yes: Trachea Midline Cardiovascular: Yes: Tachycardia, Pulse Irregular Respiratory: Yes: Rhonchi, SOB, Tachypnea Gastrointestinal: Yes: Abdomen, Obese ...Rectal Exam: Yes: Deferred Musculoskeletal: Yes: Back Pain, Muscle Weakness Extremities: Yes: Delayed Capillary Refill Edema: No Neurological: Yes: Alert, Oriented Labs: CBC, BMP 06/29/18 05:30 06/29/18 12:50 Problem List - Problems (1) Type 2 diabetes mellitus with hyperosmolarity without nonketotic hyperglycemic-hyperosmolar coma ([facility]) Code(s): E11.00 - TYPE 2 DIAB W HYPROSM W/O NONKET HYPRGLY-HYPROS COMA ([facility]) Assessment/Plan Current Active Problems dm new onset type 2 Acute renal failure (Acute) Afib (Acute) Anemia (Acute) COPD (chronic obstructive pulmonary disease) (Acute) History of pulmonary embolism (Acute) Urinary retention (Acute) Abnormal Lab Results 06/29/18 06/29/18 05:30 12:50 WBC 10.3 H RBC 3.03 L Hgb 8.6 L Hct 25.4 L RDW 18.3 H Plt Count 484 H Lymphocytes % 42.8 H D Nucleated RBC % 3 H Anion Gap 5 L Laboratory Results - last 24 hr 06/29/18 06/29/18 06/29/18 05:30 05:30 06:09 WBC 10.3 H RBC 3.03 L Hgb 8.6 L Hct 25.4 L MCV 83.9 MCH 28.4 MCHC 33.8 RDW 18.3 H Plt Count 484 H MPV 8.3 Absolute Neuts (auto) 5.0 Neutrophils % 48.5 Lymphocytes % 42.8 H D Monocytes % 6.1 Eosinophils % 1.6 Basophils % 1.0 Nucleated RBC % 3 H PTT (Actin FS) 30.1 Sodium Potassium Chloride Carbon Dioxide Anion Gap BUN Creatinine Est GFR (CKD-EPI)AfAm Est GFR (CKD-EPI)NonAf POC Glucometer 92 Random Glucose Calcium 06/29/18 06/29/18 06/29/18 12:07 12:50 16:50 WBC RBC Hgb Hct MCV MCH MCHC RDW Plt Count MPV Absolute Neuts (auto) Neutrophils % Lymphocytes % Monocytes % Eosinophils % Basophils % Nucleated RBC % PTT (Actin FS) Sodium 140 Potassium 4.5 Chloride 106 Carbon Dioxide 29 Anion Gap 5 L BUN 14 Creatinine 0.9 Est GFR (CKD-EPI)AfAm 73.00 Est GFR (CKD-EPI)NonAf 62.99 POC Glucometer 92 109 Random Glucose 102 Calcium 8.8 06/29/18 20:54 WBC RBC Hgb Hct MCV MCH MCHC RDW Plt Count MPV Absolute Neuts (auto) Neutrophils % Lymphocytes % Monocytes % Eosinophils % Basophils % Nucleated RBC % PTT (Actin FS) Sodium Potassium Chloride Carbon Dioxide Anion Gap BUN Creatinine Est GFR (CKD-EPI)AfAm Est GFR (CKD-EPI)NonAf POC Glucometer 93 Random Glucose Calcium ) Laboratory Tests 06/09/18 05:30 Hemoglobin A1c % 8.0 H plan: bgm qid novolog scale will await rehydration and volume change nutrtition consult diet and teaching diabetic management januvia 25mg daily
[2018-06-30] MEDS: SODIUM CHLORIDE 1,000 ML IV SCH (03:00)
[2018-06-30] MEDS: INSULIN SLIDING SCALE (NOVOLOG) 1 VIAL SQ SCH ×2 (06:33→11:31)
[2018-06-30] MEDS ORDERED: sitaGLIPtin PHOSPHATE 25 MG TABLET (FP) PO SCH (07:00)
[2018-06-30 07:32] LABS: BASO % 0.8 % (0-2.0); EOS % 1.5 % (0-4.5); HEMATOCRIT 25.8 % (32.4-45.2); HEMOGLOBIN 8.5 GM/dL (10.7-15.3); MCH 28.1 pg (25.7-33.7); MCHC 32.8 g/dl (32.0-36.0); MEAN CELL VOLUME 85.7 fl (80-96); MEAN PLT VOLUME 8.4 fl (7.5-11.1); MONO % 7.5 % (3.8-10.2); NEUT % 51.2 % (42.8-82.8); PLATELET COUNT 446 K/MM3 (134-434); RBC 3.01 M/mm3 (3.60-5.2); RDW 18.7 % (11.6-15.6); WHITE BLOOD COUNT 11.8 K/mm3 (4.0-10.0)
[2018-06-30] MEDS: ALBUTEROL SO4 2.5/IPRATROPIUM 0.5 INH SOL 3 ML VIAL.NEB. NEB SCH ×2 (07:50→11:36)
[2018-06-30 07:59] LABS: CALCIUM 8.3 mg/dL (8.5-10.1); CREATININE 0.9 mg/dL (0.55-1.3); POTASSIUM 4.3 mmol/L (3.5-5.1)
[2018-06-30] MEDS: FOLIC ACID 1 MG TABLET (FP) PO SCH (09:58)
[2018-06-30] MEDS: PANTOPRAZOLE 40 MG TABLET (FP) PO SCH (09:58)
[2018-06-30] MEDS: DOCUSATE SODIUM 100 MG CAPSULE (FP) PO SCH (09:58)
[2018-06-30] MEDS: CHOLECALCIFEROL (VIT D3) 1,000 UNIT (25 MCG) TABLET PO SCH (09:58)
[2018-06-30] MEDS: ATENOLOL 25 MG TABLET (FP) PO SCH (09:58)
[2018-06-30] MEDS: GABAPENTIN 300 MG CAPSULE (FP) PO SCH (09:59)
[2018-06-30] MEDS: APIXABAN 2.5 MG TABLET PO SCH (09:59)
[2018-06-30] MEDS: oxyCODONE HCL 20 MG SUSTAINED ACTING TABLET PO SCH (09:59)
[2018-06-30] MEDS: DULoxetine HCL 30 MG CAPSULE.DR PO SCH (09:59)
[2018-06-30] MEDS: TAMSULOSIN HCL 0.4 MG CAP PO SCH (09:59)
[2018-06-30 10:26] VITALS: BP 131/74; PULSE 95; TEMP 98.4
--- NOTE | 2018-06-30 11:32 | PN ---
Progress Note, Physician History of Present Illness: PULMONARY ALERT,NO DISTRESS,-CP-SOB. PT C/O LEFT GROIN PAIN - Current Medication List Current Medications: Active Medications Albuterol Sulfate (Ventolin 0.083% Nebulizer Soln -) 1 amp NEB Q4H PRN PRN Reason: SHORT OF BREATH/WHEEZING Albuterol/Ipratropium (Duoneb -) 1 amp NEB RQID [facility] Last Admin: 06/30/18 07:50 Dose: 1 amp Apixaban (Eliquis -) 2.5 mg PO BID [facility] Last Admin: 06/30/18 09:59 Dose: 2.5 mg Atenolol (Tenormin -) 25 mg PO DAILY [facility] Last Admin: 06/30/18 09:58 Dose: 25 mg Cholecalciferol (Vitamin D3 -) 1,000 unit PO DAILY [facility] Last Admin: 06/30/18 09:58 Dose: 1,000 unit Docusate Sodium (Colace -) 100 mg PO DAILY [facility] Last Admin: 06/30/18 09:58 Dose: 100 mg Duloxetine HCl (Cymbalta -) 30 mg PO BID [facility] Last Admin: 06/30/18 09:59 Dose: 30 mg Folic Acid (Folic Acid -) 1 mg PO DAILY [facility] Last Admin: 06/30/18 09:58 Dose: 1 mg Gabapentin (Neurontin -) 300 mg PO BID [facility] Last Admin: 06/30/18 09:59 Dose: 300 mg Sodium Chloride (Normal Saline -) 1,000 mls @ 75 mls/hr IV ASDIR [facility] Last Admin: 06/30/18 03:00 Dose: 75 mls/hr Insulin Aspart (Novolog Vial Sliding Scale -) 1 vial SQ TIDAC [facility]; Protocol Last Admin: 06/30/18 06:33 Dose: Not Given Insulin Detemir (Levemir Vial) 10 units SQ HS [facility] Last Admin: 06/29/18 21:11 Dose: Not Given Montelukast Sodium (Singulair -) 10 mg PO HS [facility] Last Admin: 06/29/18 21:07 Dose: 10 mg Oxycodone HCl (Oxycontin -) 40 mg PO BID [facility] Last Admin: 06/30/18 09:59 Dose: 40 mg Pantoprazole Sodium (Protonix -) 40 mg PO DAILY [facility] Last Admin: 06/30/18 09:58 Dose: 40 mg Sitagliptin Phosphate (Januvia -) 25 mg PO DAILY@0700 [facility] Last Admin: 06/30/18 09:59 Dose: 25 mg Tamsulosin HCl (Flomax -) 0.4 mg PO DAILY@0830 [facility] Last Admin: 06/30/18 09:59 Dose: 0.4 mg - Objective Vital Signs: Vital Signs Temperature 98.4 F 06/30/18 10:00 Pulse Rate 95 H 06/30/18 10:00 Respiratory Rate 20 06/30/18 10:00 Blood Pressure 131/74 06/30/18 10:00 O2 Sat by Pulse Oximetry (%) 94 L 06/30/18 09:00 Constitutional: Yes: Well Nourished, Calm Eyes: Yes: WNL HENT: Yes: WNL Neck: Yes: WNL Cardiovascular: Yes: Regular Rate and Rhythm, S1, S2 Respiratory: Yes: CTA Bilaterally Gastrointestinal: Yes: Normal Bowel Sounds, Soft Extremities: Yes: WNL Edema: No Labs: CBC, BMP 06/30/18 05:40 06/30/18 05:40 INR, PTT INR 1.78 (0.83-1.09) H 06/27/18 03:00 Problem List - Problems (1) Acute renal failure Code(s): N17.9 - ACUTE KIDNEY FAILURE, UNSPECIFIED (2) History of pulmonary embolism Code(s): Z86.711 - PERSONAL HISTORY OF PULMONARY EMBOLISM (3) Asthma Code(s): J45.909 - UNSPECIFIED ASTHMA, UNCOMPLICATED (4) Chest pain Code(s): R07.9 - CHEST PAIN, UNSPECIFIED (5) Diabetes Code(s): E11.9 - TYPE 2 DIABETES MELLITUS WITHOUT COMPLICATIONS Qualifiers: Diabetes mellitus type: type 2 (6) Pulmonary embolism Code(s): I26.99 - OTHER PULMONARY EMBOLISM WITHOUT ACUTE COR PULMONALE (7) Sickle cell anemia Code(s): D57.1 - SICKLE-CELL DISEASE WITHOUT CRISIS Qualifiers: Sickle-cell associated disorders: without crisis Qualified Code(s): D57.1 - Sickle-cell disease without crisis (8) HTN (hypertension) Code(s): I10 - ESSENTIAL (PRIMARY) HYPERTENSION Qualifiers: Hypertension type: essential hypertension Qualified Code(s): I10 - Essential (primary) hypertension Assessment/Plan IMP CHEST PAIN RESOLVED ACUTE KIDNEY INJURY IMPROVED COPD/ASTHMA H/O PE/DVT H/O SICKLE CELL DISEASE RV DYSFUNCTION PAF DM HTN PLAN ANALGESICS O2 NEEDED INHALED BRONCHODILATORS MONITOR LYTES,RENAL FUNCTION DR PANDEY Problem List - Problems (1) Acute renal failure Code(s): N17.9 - ACUTE KIDNEY FAILURE, UNSPECIFIED (2) History of pulmonary embolism Code(s): Z86.711 - PERSONAL HISTORY OF PULMONARY EMBOLISM (3) Asthma Code(s): J45.909 - UNSPECIFIED ASTHMA, UNCOMPLICATED (4) Chest pain Code(s): R07.9 - CHEST PAIN, UNSPECIFIED (5) Diabetes Code(s): E11.9 - TYPE 2 DIABETES MELLITUS WITHOUT COMPLICATIONS (6) Pulmonary embolism Code(s): I26.99 - OTHER PULMONARY EMBOLISM WITHOUT ACUTE COR PULMONALE (7) Sickle cell anemia Code(s): D57.1 - SICKLE-CELL DISEASE WITHOUT CRISIS Qualifiers: Sickle-cell associated disorders: without crisis Qualified Code(s): D57.1 - Sickle-cell disease without crisis (8) HTN (hypertension) Code(s): I10 - ESSENTIAL (PRIMARY) HYPERTENSION Qualifiers: Hypertension type: essential hypertension Qualified Code(s): I10 - Essential (primary) hypertension
--- NOTE | 2018-06-30 12:44 | DS ---
Physical Examination Vital Signs: Vital Signs Temperature 98.4 F 06/30/18 10:00 Pulse Rate 95 H 06/30/18 10:00 Respiratory Rate 20 06/30/18 10:00 Blood Pressure 131/74 06/30/18 10:00 O2 Sat by Pulse Oximetry (%) 94 L 06/30/18 09:00 feeling no more epigastric discomfort Constitutional: Yes: Calm Cardiovascular: Yes: Regular Rate and Rhythm, S1, S2 Respiratory: Yes: CTA Bilaterally Gastrointestinal: Yes: Normal Bowel Sounds, Soft Neurological: Yes: Alert, Oriented Labs: CBC, BMP 06/30/18 05:40 06/30/18 05:40 Discharge Summary Reason For Visit: CHEST PAIN Current Active Problems Acute renal failure (Acute) Afib (Acute) Anemia (Acute) COPD (chronic obstructive pulmonary disease) (Acute) History of pulmonary embolism (Acute) Type 2 diabetes mellitus with hyperosmolarity without nonketotic hyperglycemic- hyperosmolar coma ([facility]) (Acute) Urinary retention (Acute) Other Procedures: VQ intermediate probability for PE. doppler no dvt. renal sono no hydropneprosis. chest CT no acute pathology Hospital Course: CHIEF COMPLAINT: left groin pain with radiation to chest and back described as sharp for 4 days lasting a few seconds PCP:Dr. Wilkinson HISTORY OF PRESENT ILLNESS: 73 year old female with a past medical history of sickle cell disease (follows at the sickle cell clinic at [facility]), COPD (not on home O2 therapy), atrial fibrillation, and pulmonary embolism /DVT (on eliquis) who presents with symptoms of left groin pain with radiation to her mid chest and mid lower back described a severe, sharp and intermittent lasting a few seconds. She currently reports no chest or back discomfort. She denies history of aneurysms in the family. Upon evaluation in the ER she has an elevated WBC of 14.1, creatinine of 6.0( creatinine in early june 0.8). She is afebrile, pulse rate low 100's and blood pressure is normotensive. She has mild hypoxia with oxygen saturations between 93-94%. EKG- normal sinus rhythm, no signs of acute ischemia. Troponin is normal. Condition: Improved - Instructions Referrals: Javed Wilkinson MD [Primary Care Provider] - 1 Week Disposition: HOME - Home Medications Comprehensive Discharge Medication List: Ambulatory Orders Folic Acid - 1 mg PO DAILY 02/11/13 Docusate Sodium [Colace -] 100 mg PO DAILY 04/06/15 Montelukast Na [Singulair -] 10 mg PO HS 04/06/15 Losartan Potassium [Cozaar -] 50 mg PO DAILY 01/21/18 oxyCODONE SR [Oxycontin] 40 mg PO Q12H 05/21/18 Acetaminophen [Tylenol .Regular Strength -] 650 mg PO Q4H PRN tablet 05/26/18 Albuterol 0.083% Nebulizer Marichuy [Ventolin 0.083% Nebulizer Soln -] 1 amp NEB Q4H PRN amp 05/26/18 Apixaban [Eliquis -] 5 mg PO BID tablet 05/26/18 Gabapentin [Neurontin -] 300 mg PO BID capsule 06/15/18 Diltiazem HCl [Diltiazem 24Hr Cd] 180 mg PO 06/27/18 Hydrochlorothiazide [Hctz -] 12.5 mg PO BID 06/27/18 Omeprazole 20 mg PO BID 06/27/18 Prednisone [Deltasone] 20 mg PO DAILY 06/27/18
--- NOTE | 2018-06-30 13:24 | PN ---
Progress Note (short form) - Note Progress Note: Renal follow up for GUCCI Pt seen and examined at the bedside awake and alert no acute complaints voiding no sob, cp, abd pain, N/V/D on IVF Vital Signs Temperature 98.4 F 06/30/18 10:00 Pulse Rate 95 H 06/30/18 10:00 Respiratory Rate 20 06/30/18 10:00 Blood Pressure 131/74 06/30/18 10:00 O2 Sat by Pulse Oximetry (%) 94 L 06/30/18 09:00 Intake & Output 06/27/18 06/28/18 06/29/18 06/30/18 23:59 23:59 23:59 23:59 Intake Total 240 2021 1380 1080 Output Total 500 1500 1000 Balance -260 911 529 7549 Weight 76.657 kg NAD RRR, no M/R CTA, no rales soft, + tenderness in lower abd no LE edema CBC, BMP 06/30/18 05:40 06/30/18 05:40 Current Medications Albuterol Sulfate (Ventolin 0.083% Nebulizer Soln -) 1 amp NEB Q4H PRN PRN Reason: SHORT OF BREATH/WHEEZING Albuterol/Ipratropium (Duoneb -) 1 amp NEB RQID [facility] Last Admin: 06/30/18 11:36 Dose: 1 amp Apixaban (Eliquis -) 2.5 mg PO BID [facility] Last Admin: 06/30/18 09:59 Dose: 2.5 mg Atenolol (Tenormin -) 25 mg PO DAILY [facility] Last Admin: 06/30/18 09:58 Dose: 25 mg Cholecalciferol (Vitamin D3 -) 1,000 unit PO DAILY [facility] Last Admin: 06/30/18 09:58 Dose: 1,000 unit Docusate Sodium (Colace -) 100 mg PO DAILY [facility] Last Admin: 06/30/18 09:58 Dose: 100 mg Duloxetine HCl (Cymbalta -) 30 mg PO BID [facility] Last Admin: 06/30/18 09:59 Dose: 30 mg Folic Acid (Folic Acid -) 1 mg PO DAILY [facility] Last Admin: 06/30/18 09:58 Dose: 1 mg Gabapentin (Neurontin -) 300 mg PO BID [facility] Last Admin: 06/30/18 09:59 Dose: 300 mg Sodium Chloride (Normal Saline -) 1,000 mls @ 75 mls/hr IV ASDIR [facility] Last Admin: 06/30/18 03:00 Dose: 75 mls/hr Insulin Aspart (Novolog Vial Sliding Scale -) 1 vial SQ TIDAC [facility]; Protocol Last Admin: 06/30/18 11:31 Dose: Not Given Montelukast Sodium (Singulair -) 10 mg PO HS [facility] Last Admin: 06/29/18 21:07 Dose: 10 mg Oxycodone HCl (Oxycontin -) 40 mg PO BID [facility] Last Admin: 06/30/18 09:59 Dose: 40 mg Pantoprazole Sodium (Protonix -) 40 mg PO DAILY [facility] Last Admin: 06/30/18 09:58 Dose: 40 mg Sitagliptin Phosphate (Januvia -) 25 mg PO DAILY@0700 [facility] Last Admin: 06/30/18 09:59 Dose: 25 mg Tamsulosin HCl (Flomax -) 0.4 mg PO DAILY@0830 [facility] Last Admin: 06/30/18 09:59 Dose: 0.4 mg 73 year old woman with hx of sickle cell diseae, COPD, Afib on A/C, PE/DVT presented complains of groin and chest pain and found to have GUCCI with Cr of 6. #GUCCI likely due to urinary retention in setting of opioids/constipation #Chest pain r/o ACS #Sickle cell disease #Anemia #hypertension #Leukocytosis Renal function with improvement back to baseline after catheter insertion now voiding w/o catheter can d/c IVF discharge planning as per primary Thank you Enrique Flores DO
== END 2018-06-30 14:13 | disposition home or self-care (01) | DRG 682 ==
LOC: JER → JERBED 04:45 → J4W 14:40 → OBSVTOIN 06-28 15:13
PROVIDERS: ADMIT Internal Medicine; ATTEND Family Medicine
DX: N17.9 Acute kidney failure, unspecified (principal); E11.00 Type 2 diabetes mellitus with hyperosmolarity without nonketotic hyperglycemic-hyperosmolar coma (NKHHC); J44.1 Chronic obstructive pulmonary disease with (acute) exacerbation; I27.82 Chronic pulmonary embolism; F11.20 Opioid dependence, uncomplicated; J44.9 Chronic obstructive pulmonary disease, unspecified; D57.1 Sickle-cell disease without crisis; I48.0 Paroxysmal atrial fibrillation; R33.9 Retention of urine, unspecified; K59.00 Constipation, unspecified; D72.829 Elevated white blood cell count, unspecified; F63.9 Impulse disorder, unspecified; R07.89 Other chest pain; M54.5 Low back pain; Z86.718 Personal history of other venous thrombosis and embolism; Z96.643 Presence of artificial hip joint, bilateral
CPT/HCPCS: 36415; 71045-TC-FY; 71250-TC; 76775-TC; 78582-TC; 80048; 80053; 81003; 82550; 82553; 82962; 83010; 83615; 84484; 85025; 85044; 85379; 85610; 85730; 86880; 87086; 93005; 93010; 93306-TC; 93970-TC; 94640; 97116-GP; 97161-GP; 99283-25; A9539; A9540; G0378; J1644; J7030

== ENCOUNTER 2018-07-25 23:54 | Inpatient (IN) | payer OTHER ==
[2018-07-26 02:33] LABS: HEMATOCRIT 25.5 % (32.4-45.2); HEMOGLOBIN 8.6 GM/dL (10.7-15.3); MCH 28.9 pg (25.7-33.7); MCHC 33.7 g/dl (32.0-36.0); MEAN CELL VOLUME 85.7 fl (80-96); MEAN PLT VOLUME 7.9 fl (7.5-11.1); PLATELET COUNT 312 K/MM3 (134-434); RBC 2.97 M/mm3 (3.60-5.2); RDW 18.3 % (11.6-15.6); WHITE BLOOD COUNT 15.8 K/mm3 (4.0-10.0)
--- NOTE | 2018-07-26 03:59 | PDOC ---
Documentation entered by Saurabh Almonte SCRIBE, acting as scribe for Milagros Pierre DO. Milagros Pierre DO: This documentation has been prepared by the Suzy man Elijah, SCRIBE, under my direction and personally reviewed by me in its entirety. I confirm that the documentation accurately reflects all work , treatment, procedures, and medical decision making performed by me. History of Present Illness - General Chief Complaint: Edema Stated Complaint: BOTH FEET SWOLLEN Time Seen by Provider: 07/26/18 01:28 History Source: Patient Exam Limitations: No Limitations - History of Present Illness Initial Comments: 07/26/18 01:50 HPI Patient is a 73 year old female with a significant past medical history with of Sickle Cell Disease, COPD (not on home O2), PE/DVT (on A/C) and Asthma who presents to the ED swelling in both legs and LLE pain beginning 6 days prior. Patient notes that the swelling has gotten progressively worse over the last week. Patient notes she has had difficulty walking secondary to the pain. She states this is not related to her sickle cell disease, which typically consists of her eyes turning red and her mouth going dry. Allergies: Ciprofloxacin, Codeine, Levofloxacin, Penicillins, Sulfa, Tetanus, IV Dye Surgical History: Bilateral hip replacements, RCR, Cholecystectomy Past History - Past Medical History Allergies/Adverse Reactions: Allergies Allergy/AdvReac Type Severity Reaction Status Date / Time ciprofloxacin [From Cipro] Allergy Itching Verified 07/25/18 23:59 ciprofloxacin HCl Allergy Itching Verified 07/25/18 23:59 [From Cipro] codeine [Codeine] Allergy Verified 07/25/18 23:59 levofloxacin [From Levaquin] Allergy Itching Verified 07/25/18 23:59 Penicillins Allergy Itching Verified 07/25/18 23:59 Sulfa (Sulfonamide Allergy Verified 07/25/18 23:59 Antibiotics) tetanus immune globulin Allergy Verified 07/25/18 23:59 IV DYE Allergy Uncoded 07/25/18 23:59 Home Medications: Ambulatory Orders Folic Acid - 1 mg PO DAILY 02/11/13 Docusate Sodium [Colace -] 100 mg PO DAILY 04/06/15 Montelukast Na [Singulair -] 10 mg PO HS 04/06/15 Losartan Potassium [Cozaar -] 50 mg PO DAILY 01/21/18 oxyCODONE SR [Oxycontin] 40 mg PO Q12H 05/21/18 Acetaminophen [Tylenol .Regular Strength -] 650 mg PO Q4H PRN tablet 05/26/18 Albuterol 0.083% Nebulizer Marichuy [Ventolin 0.083% Nebulizer Soln -] 1 amp NEB Q4H PRN amp 05/26/18 Gabapentin [Neurontin -] 300 mg PO BID capsule 06/15/18 Omeprazole 20 mg PO BID 06/27/18 Albuterol 2.5/Ipratropium 0.5 [Duoneb -] 1 amp NEB RQID amp 06/30/18 Apixaban [Eliquis] 5 mg PO BID #30 tablet MDD 2 06/30/18 Atenolol [Tenormin -] 25 mg PO DAILY tablet 06/30/18 Budesonide/Formeterol Fumarate [SYMBICORT 160/4.5mcg -] 1 inh PO BID #1 cannister 06/30/18 Cholecalciferol (Vitamin D3) [Vitamin D3 -] 1,000 unit PO DAILY tab 06/30/18 Cholecalciferol (Vitamin D3) [Vitamin D3 -] 1,000 unit PO DAILY #30 tab Duloxetine HCl [Cymbalta -] 30 mg PO BID #30 capsule. MDD 2 06/30/18 Sitagliptin Phosphate [Januvia -] 25 mg PO DAILY@0700 tab 06/30/18 Sitagliptin Phosphate [Januvia] 25 mg PO DAILY #30 tablet MDD 1 06/30/18 Tamsulosin HCl [Flomax -] 0.4 mg PO DAILY@0830 #30 cap.er.24h MDD 1 06/30/18 Tamsulosin HCl [Flomax] 0.4 mg PO DAILY #30 cap.er.24h MDD 1 06/30/18 Anemia: Yes (SICKLE CELL) Asthma: (BRONCHITIS) Cancer: No Cardiac Disorders: Yes (AF) CVA: No COPD: Yes CHF: No Dementia: No Diabetes: No GI Disorders: No Disorders: No HTN: Yes Hypercholesterolemia: No Liver Disease: No Seizures: No Thyroid Disease: No - Surgical History Abdominal Surgery: Yes Cardiac Surgery: No Cholecystectomy: Yes Orthopedic Surgery: Yes (nato hip replacement 2006 ? back sx, rot cuff) - Immunization History Immunization Up to Date: Yes (no pna) - Suicide/Smoking/Psychosocial Hx Smoking Status: No Smoking History: Never smoked Have you smoked in the past 12 months: No Number of Cigarettes Smoked Daily: 0 Information on smoking cessation initiated: No Hx Alcohol Use: No Drug/Substance Use Hx: No Substance Use Type: None Hx Substance Use Treatment: No Review of Systems - Review of Systems Comments:: 07/26/18 01:51 GENERAL/CONSTITUTIONAL: No fever or chills. No weakness. HEAD, EYES, EARS, NOSE AND THROAT: No change in vision. No ear pain or discharge. No sore throat. GASTROINTESTINAL: No nausea, vomiting, diarrhea or constipation. GENITOURINARY: No dysuria, frequency, or change in urination. CARDIOVASCULAR: No chest pain or shortness of breath. RESPIRATORY: No cough, wheezing, or hemoptysis. MUSCULOSKELETAL: +Swelling in both lower extremities. +pain in Left Lower Extremity. No neck or back pain. SKIN: No rash NEUROLOGIC: No headache, vertigo, loss of consciousness, or change in strength/ sensation. ENDOCRINE: No increased thirst. No abnormal weight change. HEMATOLOGIC/LYMPHATIC: No anemia, easy bleeding, or history of blood clots. ALLERGIC/IMMUNOLOGIC: No hives or skin allergy. 07/26/18 01:55 *Physical Exam - Vital Signs Last Vital Signs Temp Pulse Resp BP Pulse Ox 98.3 F 103 H 20 105/60 99 07/25/18 23:56 07/25/18 23:56 07/25/18 23:56 07/25/18 23:56 07/25/18 23:56 - Physical Exam Comments: 07/26/18 01:51 GENERAL: Awake, in no acute distress HEAD: No signs of trauma EYES: PERRLA, EOMI, sclera anicteric, conjunctiva clear, visual acuity grossly intact ENT:. Moist mucosa NECK: Normal ROM, supple, no lymphadenopathy, JVD, or masses LUNGS: diminished BS b/l bases HEART: Regular rate and rhythm, normal S1 and S2, no murmurs, rubs or gallops ABDOMEN: Soft, nontender, normoactive bowel sounds. No guarding, no rebound. No masses. Non-distended. CHEST WALL: BACK: No midline tenderness. EXTREMITIES: Normal range of motion, 1 plus pitting edema feet and ankles NEUROLOGICAL: Alert, and fully oriented x4, Cranial nerves II through XII grossly intact. Normal speech, SKIN: Warm, Dry, normal turgor, no rashes or lesions noted. 07/26/18 04:37 ED Treatment Course - LABORATORY CBC & Chemistry Diagram: 07/26/18 02:20 07/26/18 03:30 - ADDITIONAL ORDERS Additional order review: Laboratory Results 07/26/18 02:20 Sodium Cancelled Potassium Cancelled Chloride Cancelled Carbon Dioxide Cancelled Anion Gap Cancelled BUN Cancelled Creatinine Cancelled Est GFR (CKD-EPI)AfAm Cancelled Est GFR (CKD-EPI)NonAf Cancelled Random Glucose Cancelled Calcium Cancelled Total Bilirubin Cancelled AST Cancelled ALT Cancelled Alkaline Phosphatase Cancelled Creatine Kinase Cancelled Troponin I Cancelled B-Natriuretic Peptide Cancelled Total Protein Cancelled Albumin Cancelled 07/26/18 02:20 RBC 2.97 L MCV 85.7 MCHC 33.7 RDW 18.3 H MPV 7.9 - RADIOLOGY Radiology Studies Ordered: Category Date Time Status CHEST PA & LAT [RAD] Stat Radiology 07/26/18 01:34 Taken DUPLEX VASCUL US-2LEGS [US] Stat Ultrasound 07/26/18 01:34 Taken Medical Decision Making - Medical Decision Making 07/26/18 04:36 73-year-old female with increasing leg swelling and leg cramps EKG shows a normal sinus rhythm at 92 bpm with no acute ST elevations There are Q waves in septal leads There is no old readily available for comparison Chest x-ray is rotated somewhat affecting interpretation, there appears to be some increased markings in the perihilar regions Labs are consistent with an acute kidney injury Plan for admission to medical service for further evaluation *DC/Admit/Observation/Transfer Diagnosis at time of Disposition: Edema extremities, Acute kidney injury - Discharge Dispostion Disposition: HOME Condition at time of disposition: Stable Decision to Admit order: Yes - Referrals Referrals: Javed Wilkinson MD [Primary Care Provider] - - Patient Instructions - Post Discharge Activity
[2018-07-26 04:30] LABS: ALBUMIN 2.9 g/dl (3.4-5.0); ALK PHOS 99 U/L (45-117); ANION GAP 7 MMOL/L (8-16); BILIRUBIN,TOTAL 0.7 mg/dL (0.2-1); BLOOD UREA NITROGEN 35.6 mg/dL (7-18); CHLORIDE 103 mmol/L (98-107); CO2 27 mmol/L (21-32); CREATININE 2.6 mg/dL (0.55-1.3); GLUCOSE,RANDOM 100 mg/dL (74-106); POTASSIUM 3.9 mmol/L (3.5-5.1); SGOT/AST 40 U/L (15-37); SGPT/ALT 8 U/L (13-61); SODIUM 137 mmol/L (136-145); TOT PROT 6.5 g/dl (6.4-8.2)
--- NOTE | 2018-07-26 04:56 | HP ---
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 Patient notes that the swelling has gotten progressively worse over the last week. Pain is a 7/10 pain located in L groin and L buttock area, worsened by movement, with difficulty walking secondary to the pain. Pt reports that the pain is not similar to her sickle cell crisis in past. Pt denies new SOB, has had SOB with minimal exertion like walking less than 1 foot, and has intermittent dry cough, recent episode about a week old. No burning on micturition, no hematuria. Pt had similar pain in groin with last admission but no cause was identified. Recent nuclear stress test was negative and ECHO showed EF 80%. 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 Had had a cr in past up to 8. Allergies: Ciprofloxacin, Codeine, Levofloxacin, Penicillins, Sulfa, Tetanus, IV Dye Surgical History: Bilateral hip replacements, RCR, Cholecystectomy History Source: Patient, Medical Record - Past Medical History Cardiovascular: Yes: Deep Vein Thrombosis, HTN, Other (PE) Pulmonary: Yes: COPD, Pulmonary Embolus Heme/Onc: Yes: Sickle Cell Disease (SC disease) Psych: Yes: Addictions, Other (Pain meds- methadone, oxycodone ) Musculoskeletal: Yes: Chronic low back pain - Past Surgical History Past Surgical History: Yes: Cholecystectomy, Hysterectomy, Joint Replacement ( bilateral hip replacements) - Smoking History Smoking history: Never smoked Have you smoked in the past 12 months: No Aproximately how many cigarettes per day: 0 - Alcohol/Substance Use Hx Alcohol Use: No History of Substance Use: reports: Prescription - Social History ADL: Independent History of Recent Travel: No Home Medications - Allergies Allergies/Adverse Reactions: Allergies Allergy/AdvReac Type Severity Reaction Status Date / Time ciprofloxacin [From Cipro] Allergy Itching Verified 07/25/18 23:59 ciprofloxacin HCl Allergy Itching Verified 07/25/18 23:59 [From Cipro] codeine [Codeine] Allergy Verified 07/25/18 23:59 levofloxacin [From Levaquin] Allergy Itching Verified 07/25/18 23:59 Penicillins Allergy Itching Verified 07/25/18 23:59 Sulfa (Sulfonamide Allergy Verified 07/25/18 23:59 Antibiotics) tetanus immune globulin Allergy Verified 07/25/18 23:59 IV DYE Allergy Uncoded 07/25/18 23:59 - Home Medications Home Medications: Ambulatory Orders Folic Acid - 1 mg PO DAILY 02/11/13 Docusate Sodium [Colace -] 100 mg PO DAILY 04/06/15 Montelukast Na [Singulair -] 10 mg PO HS 04/06/15 Losartan Potassium [Cozaar -] 50 mg PO DAILY 01/21/18 oxyCODONE SR [Oxycontin] 40 mg PO Q12H 05/21/18 Acetaminophen [Tylenol .Regular Strength -] 650 mg PO Q4H PRN tablet 05/26/18 Albuterol 0.083% Nebulizer Marichuy [Ventolin 0.083% Nebulizer Soln -] 1 amp NEB Q4H PRN amp 05/26/18 Gabapentin [Neurontin -] 300 mg PO BID capsule 06/15/18 Omeprazole 20 mg PO BID 06/27/18 Albuterol 2.5/Ipratropium 0.5 [Duoneb -] 1 amp NEB RQID amp 06/30/18 Apixaban [Eliquis] 5 mg PO BID #30 tablet MDD 2 06/30/18 Atenolol [Tenormin -] 25 mg PO DAILY tablet 06/30/18 Budesonide/Formeterol Fumarate [SYMBICORT 160/4.5mcg -] 1 inh PO BID #1 cannister 06/30/18 Cholecalciferol (Vitamin D3) [Vitamin D3 -] 1,000 unit PO DAILY tab 06/30/18 Cholecalciferol (Vitamin D3) [Vitamin D3 -] 1,000 unit PO DAILY #30 tab Duloxetine HCl [Cymbalta -] 30 mg PO BID #30 capsule. MDD 2 06/30/18 Sitagliptin Phosphate [Januvia -] 25 mg PO DAILY@0700 tab 06/30/18 Sitagliptin Phosphate [Januvia] 25 mg PO DAILY #30 tablet MDD 1 06/30/18 Tamsulosin HCl [Flomax -] 0.4 mg PO DAILY@0830 #30 cap.er.24h MDD 1 06/30/18 Tamsulosin HCl [Flomax] 0.4 mg PO DAILY #30 cap.er.24h MDD 1 06/30/18 Family Disease History - Family Disease History Family Disease History: Diabetes: Mother (HTN, TIIDM, Stroke), Heart Disease: Mother, CA: Father (Lung CA), Other: Mother Review of Systems - Review of Systems Constitutional: denies: Chills, Diaphoresis, Fever, Lethargy, Loss of Appetite, Night Sweats Eyes: denies: Blurred Vision HENT: denies: Difficult Swallowing Neck: denies: Decreased ROM Cardiovascular: reports: Edema. denies: Chest Pain Respiratory: reports: SOB on Exertion. denies: Wheezing Gastrointestinal: denies: Abdominal Pain, Bloating, Constipation, Nausea Genitourinary: denies: Burning, Discharge, Dysuria, Flank Pain Musculoskeletal: reports: Back Pain, Joint Pain Neurological: reports: Parasthesia. denies: Change in LOC, Change in Speech, Confusion, Pre-Existing Deficit, Seizure, Syncope Physical Examination Vital Signs: Vital Signs Temperature 98.3 F 07/25/18 23:56 Pulse Rate 103 H 07/25/18 23:56 Respiratory Rate 20 07/25/18 23:56 Blood Pressure 105/60 07/25/18 23:56 O2 Sat by Pulse Oximetry (%) 99 07/25/18 23:56 Constitutional: Yes: Calm, Mild Distress Eyes: Yes: Conjunctiva Clear, EOM Intact, PERRL. No: Sclera Icterus HENT: Yes: Atraumatic Neck: Yes: Supple, Other (cushinoid features) Cardiovascular: Yes: Murmur, S1, S2 Respiratory: Yes: CTA Bilaterally Gastrointestinal: Yes: Normal Bowel Sounds, Soft, Abdomen, Obese, Other (R abdominal scar) Renal/: No: CVA Tenderness - Left, CVA Tenderness - Right Musculoskeletal: Yes: Back Pain. No: Joint Swelling, Muscle Pain, Muscle Weakness Extremities: No: Deformity, Erythema, External Rotation Edema: Yes Edema: LUE: 1+, RLE: 1+ Peripheral Pulses WNL: No (Had to palpate with edema) Integumentary: No: Petechiae, Rash Neurological: Yes: Alert, Oriented ...Motor Strength: WNL, LUE, LLE, RUE, RLE Psychiatric: Yes: Alert, Oriented Labs: CBC, BMP 07/26/18 02:20 07/26/18 03:30 Imaging - Results Chest X-ray: Image Reviewed Ultrasound: Pending Assessment/Plan Ambulatory Orders Folic Acid - 1 mg PO DAILY 02/11/13 Docusate Sodium [Colace -] 100 mg PO DAILY 04/06/15 Montelukast Na [Singulair -] 10 mg PO HS 04/06/15 Losartan Potassium [Cozaar -] 50 mg PO DAILY 01/21/18 oxyCODONE SR [Oxycontin] 40 mg PO Q12H 05/21/18 Acetaminophen [Tylenol .Regular Strength -] 650 mg PO Q4H PRN tablet 05/26/18 Albuterol 0.083% Nebulizer Marichuy [Ventolin 0.083% Nebulizer Soln -] 1 amp NEB Q4H PRN amp 05/26/18 Gabapentin [Neurontin -] 300 mg PO BID capsule 06/15/18 Omeprazole 20 mg PO BID 06/27/18 Albuterol 2.5/Ipratropium 0.5 [Duoneb -] 1 amp NEB RQID amp 06/30/18 Apixaban [Eliquis] 5 mg PO BID #30 tablet MDD 2 06/30/18 Atenolol [Tenormin -] 25 mg PO DAILY tablet 06/30/18 Budesonide/Formeterol Fumarate [SYMBICORT 160/4.5mcg -] 1 inh PO BID #1 cannister 06/30/18 Cholecalciferol (Vitamin D3) [Vitamin D3 -] 1,000 unit PO DAILY tab 06/30/18 Cholecalciferol (Vitamin D3) [Vitamin D3 -] 1,000 unit PO DAILY #30 tab Duloxetine HCl [Cymbalta -] 30 mg PO BID #30 capsule. MDD 2 06/30/18 Sitagliptin Phosphate [Januvia -] 25 mg PO DAILY@0700 tab 06/30/18 Sitagliptin Phosphate [Januvia] 25 mg PO DAILY #30 tablet MDD 1 06/30/18 Tamsulosin HCl [Flomax -] 0.4 mg PO DAILY@0830 #30 cap.er.24h MDD 1 06/30/18 Tamsulosin HCl [Flomax] 0.4 mg PO DAILY #30 cap.er.24h MDD 1 06/30/18 Current Medications Acetaminophen (Tylenol -) 650 mg PO Q4H PRN PRN Reason: FEVER Docusate Sodium (Colace -) 100 mg PO DAILY [facility] Duloxetine HCl (Cymbalta -) 30 mg PO BID [facility] Folic Acid (Folic Acid -) 1 mg PO DAILY [facility] Gabapentin (Neurontin -) 300 mg PO TID [facility] Hydromorphone HCl (Dilaudid Vial -) 2 mg IVPB Q4H PRN PRN Reason: PAIN LEVEL 7 - 10 Oxycodone HCl (Roxicodone -) 5 mg PO Q2H PRN PRN Reason: PAIN LEVEL 4-6 Oxycodone HCl (Oxycontin -) 40 mg PO Q12H PRN PRN Reason: PAIN LEVEL 7 - 10 Pantoprazole Sodium (Protonix -) 20 mg PO BID [facility] Tamsulosin HCl (Flomax -) 0.4 mg PO DAILY@0830 [facility] Tiotropium [place] (Spiriva Respimat) 2 puff IH DAILY [facility] Assessment/Plan Pt is a 73 yo F with a significant PMHx of SCD, COPD (not on home O2), peripheral neuropathy, 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 - New Patient This patient is new to me today: Yes Date on this admission: 07/26/18 - Critical Care Critical Care patient: No
--- NOTE | 2018-07-26 05:34 | PN ---
Teaching Attending Note Name of Resident: Dolores Ocasio ATTENDING PHYSICIAN STATEMENT I saw and evaluated the patient. I reviewed the resident's note and discussed the case with the resident. I agree with the resident's findings and plan as documented. SUBJECTIVE: Thank you Dr. Emerson for allowing us to take part in the ongoing management of your patient. Seen and examined; please refer to resident note for further historical information. Briefly, this is a 73 y/o female presenting to the ER with a CC of LE swelling/pain; there is documented concern for sickle cell crisis but patietn states that her current sensation is not congruent with her typical crisis. She is also found to have an GUCCI with Cr 2.4 today in the ER (has some known CKD). She is afebrile and hemodynamically stable. Tells me that she has chronic SOB that was worse over the past month, notably since she last left the hospital. Her Hb is the same as it was last month. Her reticulocyte count is lower than it has been in the past (marginally higher than it was on last visit) . She is afebrile and hemodynamically stable. BNP elevated but only mildly. She has known longerm neuropathy, as well, but she states that the pain is different; the pain that happened today went to the back and the groin but in the past it only went to the groin. 10 sys ROS done and negative aside from HPI PMH , PSH, FH, SH reviewed Home Medications Medication Instructions Recorded Folic Acid - 1 mg PO DAILY 02/11/13 Docusate Sodium [Colace -] 100 mg PO DAILY 04/06/15 Montelukast Na [Singulair -] 10 mg PO HS 04/06/15 Losartan Potassium [Cozaar -] 50 mg PO DAILY 01/21/18 oxyCODONE SR [Oxycontin] 40 mg PO Q12H 05/21/18 Acetaminophen [Tylenol .Regular 650 mg PO Q4H PRN tablet 05/26/18 Strength -] Albuterol 0.083% Nebulizer Marichuy 1 amp NEB Q4H PRN amp 05/26/18 [Ventolin 0.083% Nebulizer Soln -] Gabapentin [Neurontin -] 300 mg PO BID capsule 06/15/18 Omeprazole 20 mg PO BID 06/27/18 Albuterol 2.5/Ipratropium 0.5 1 amp NEB RQID amp 06/30/18 [Duoneb -] Apixaban [Eliquis] 5 mg PO BID #30 tablet MDD 2 06/30/18 Atenolol [Tenormin -] 25 mg PO DAILY tablet 06/30/18 Budesonide/Formeterol Fumarate 1 inh PO BID #1 cannister 06/30/18 [SYMBICORT 160/4.5mcg -] Cholecalciferol (Vitamin D3) 1,000 unit PO DAILY tab 06/30/18 [Vitamin D3 -] Cholecalciferol (Vitamin D3) 1,000 unit PO DAILY #30 tab 06/30/18 [Vitamin D3 -] Duloxetine HCl [Cymbalta -] 30 mg PO BID #30 capsule. MDD 2 06/30/18 Sitagliptin Phosphate [Januvia -] 25 mg PO DAILY@0700 tab 06/30/18 Sitagliptin Phosphate [Januvia] 25 mg PO DAILY #30 tablet MDD 1 06/30/18 Tamsulosin HCl [Flomax -] 0.4 mg PO DAILY@0830 #30 06/30/18 cap.er.24h MDD 1 Tamsulosin HCl [Flomax] 0.4 mg PO DAILY #30 cap.er.24h MDD 06/30/18 1 OBJECTIVE: VS, labs, imaging reviewed NAD, AAOx3, resting comfortably in bed NC AT EOMI PERRLA RRR s1/2 no mgr; no obvious upper leg swelling but she was lying down. ? Dependent component? She did have pedal edema where her socks were. Lungs CTAB, w/ sym exp NT ND +BS CN2-12 wnl, no fnd Normal mood, appropriate affect EKG reviewed CXR reviewed Echo 06/2018 shows hyperdynamic LV with moderately dilated hypokinetic RV. Mild MR/TR. ASSESSMENT AND PLAN: Patient presents with complaint of leg pain and swelling that is different from her normal sickle cell crisis. Found to have an GUCCI 1) Acute LE pain; R/O sickle cell crisis -She claims that this pain is different than prior SC crisis; we will still provide IV Dilaudid 1 q2h for breakthrough and continue her home basal oxycodone SR. Given RV findings, etc. will elect not to aggressively hydrate at this juncture as a) Hb stable b) reticulocyte count only marginally higher than last time 1.3 to 1.5 c) insists this isn't exacerbation. LDH pending. -Consulting Dr. Sofia from hematology. She follows at the [facility] clinic so would be helpful to get recent records -Should clinical picture begin to endorse a true crisis -No DVT on prelim venous doppler; followup arterial dopplers to r/o any PAD. -On gabapentin 300 BID; will increase to TID for likely neuropathic component of pain. LE Swelling -RV hypokinesis on recent echo noted; swelling mostly in feet. Will hold off on lasix at this juncture due to the GUCCI and her relative lack of respiratory symptoms. Consider CV consult in the AM. BNP is elevated but very mild and this is in the setting of GUCCI which makes it less reliable. GUCCI on CKD -Calculating FeNa and checking YARELY; consulting nephrology. Strict Is and Os and monitor BMP. Avoid nephrotoxic medications (holding cozaar). COPD, not in exacerbation/Asthma -Not wearing O2 in ER but documented as having O2 in previous notes. Her sx are somewhat chronic and have been worsening over the past month. She is on symbicort with PRN rescue inhaler. Adding spiriva and consulting Dr. Stone. Consider OP PFTs and pulmonary rehab. Appreciate expert opinion. -Continue symbicort, PRN nebs, monteleukast Sickle Cell Anemia -As per #1; verify with [facility] if she is on hydroxyurea. No indication for XF. Further discussion in #1 PE on Eliquis -Continue home meds; no s/s bleeding
[2018-07-26] MEDS ORDERED: HYDROmorphone HCl 2 MG/ML VIAL IVPB PRN (05:47)
[2018-07-26] MEDS ORDERED: oxyCODONE HCL 5 MG TABLET PO PRN (05:54)
[2018-07-26] MEDS ORDERED: ACETAMINOPHEN 325 MG TABLET (FP) PO PRN (05:55)
[2018-07-26] MEDS ORDERED: GABAPENTIN 100 MG CAPSULE (FP) ONE (06:04)
[2018-07-26] MEDS: GABAPENTIN 300 MG CAPSULE (FP) PO SCH ×3 (06:41→21:19)
--- NOTE | 2018-07-26 08:06 | EKG ---
Test Reason : Blood Pressure : / mmHG Vent. Rate : 092 BPM Atrial Rate : 092 BPM P-R Int : 158 ms QRS Dur : 076 ms QT Int : 342 ms P-R-T Axes : 064 -07 025 degrees QTc Int : 422 ms NORMAL SINUS RHYTHM SEPTAL INFARCT , AGE UNDETERMINED ABNORMAL ECG WHEN COMPARED WITH ECG OF 27-JUN-2018 00:57, SEPTAL INFARCT IS NOW PRESENT Confirmed by SERAFIN DAO, YUE ([id number]) on 07/26/2018 8:06:15 AM Referred By: Confirmed By:YUE BETANCOURT MD
[2018-07-26 08:09] LABS: ALBUMIN 2.8 g/dl (3.4-5.0); BILIRUBIN,TOTAL 0.8 mg/dL (0.2-1); BLOOD UREA NITROGEN 33.2 mg/dL (7-18); CREATININE 2.2 mg/dL (0.55-1.3); MAGNESIUM 1.9 mg/dL (1.8-2.4); POTASSIUM 3.7 mmol/L (3.5-5.1); TOT PROT 6.4 g/dl (6.4-8.2)
[2018-07-26 08:14] LABS: BASO % 1.1 % (0-2.0); EOS % 4.7 % (0-4.5); HEMATOCRIT 21.8 % (32.4-45.2); HEMOGLOBIN 7.5 GM/dL (10.7-15.3); MCH 28.8 pg (25.7-33.7); MCHC 34.2 g/dl (32.0-36.0); MEAN CELL VOLUME 84.3 fl (80-96); MEAN PLT VOLUME 7.9 fl (7.5-11.1); MONO % 5.1 % (3.8-10.2); NEUT % 50.1 % (42.8-82.8); PLATELET COUNT 314 K/MM3 (134-434); RBC 2.59 M/mm3 (3.60-5.2); RDW 18.7 % (11.6-15.6); WHITE BLOOD COUNT 12.5 K/mm3 (4.0-10.0)
[2018-07-26 08:20] LABS: INR 1.44 (0.83-1.09)
[2018-07-26 08:21] LABS: ACTIVATED PTT 33.3 SECONDS (25.2-36.5)
[2018-07-26] MEDS: TAMSULOSIN HCL 0.4 MG CAP PO SCH (08:55)
[2018-07-26] MEDS: FOLIC ACID 1 MG TABLET (FP) PO SCH (09:01)
[2018-07-26] MEDS: DOCUSATE SODIUM 100 MG CAPSULE (FP) PO SCH (09:01)
[2018-07-26] MEDS: DULoxetine HCL 30 MG CAPSULE.DR PO SCH ×2 (09:01→21:18)
[2018-07-26] MEDS: PANTOPRAZOLE 20 MG TABLET (FP) PO SCH ×2 (09:01→21:19)
[2018-07-26] MEDS ORDERED: oxyCODONE HCL 40 MG SUSTAINED ACTING TABLET PO ONE (09:02)
[2018-07-26] MEDS: oxyCODONE HCL 40 MG SUSTAINED ACTING TABLET PO SCH ×2 (09:03→21:19)
[2018-07-26] MEDS ORDERED: TIOTROPIUM BROMIDE 2.5 MCG (SPIRIVA) RESPIMAT INHALER IH SCH (10:00)
[2018-07-26 13:52] VITALS: BMI 30.1
--- NOTE | 2018-07-26 14:14 | CON.PULM ---
Consult Consult Specialty:: PULMONARY Referred by:: Dr Mathur Reason for Consultation:: shortness of breath - History of Present Illness Chief Complaint: leg pain History of Present Illness: 73yo female with h/o sickle cell disease (SC), HTN, COPD, chronic hypoxic respiratory failure on home O2, atrial fibrillation, h/o PE/DVT on anticoagulation who was admitted with increasing leg pain and swelling. Also witih worsening shortness of breath. No chest pain or palpitations. + nonproductive cough and wheezing. No fevers, chills or sweats. No sick contacts or recent travel. Has been using her albuterol 3x/day. - History Source History Provided By: Patient, Medical Record Limitations to Obtaining History: No Limitations - Past Medical History Cardio/Vascular: Yes: Deep Vein Thrombosis, HTN, Other (PE) Pulmonary: Yes: COPD, Pulmonary Embolus ...: No Psych: Yes: Addictions, Other (Pain meds- methadone, oxycodone ) Musculoskeletal: Yes: Chronic low back pain - Past Surgical History Past Surgical History: Yes: Cholecystectomy, Hysterectomy, Joint Replacement ( bilateral hip replacements) - Alcohol/Substance Use Hx Alcohol Use: No History of Substance Use: reports: Prescription - Smoking History Smoking history: Never smoked Have you smoked in the past 12 months: No Aproximately how many cigarettes per day: 0 - Social History Usual Living Arrangement: With Spouse ADL: Independent History of Recent Travel: No Home Medications - Allergies Allergies/Adverse Reactions: Allergies Allergy/AdvReac Type Severity Reaction Status Date / Time ciprofloxacin [From Cipro] Allergy Itching Verified 07/25/18 23:59 ciprofloxacin HCl Allergy Itching Verified 07/25/18 23:59 [From Cipro] codeine [Codeine] Allergy Verified 07/25/18 23:59 levofloxacin [From Levaquin] Allergy Itching Verified 07/25/18 23:59 Penicillins Allergy Itching Verified 07/25/18 23:59 Sulfa (Sulfonamide Allergy Verified 07/25/18 23:59 Antibiotics) tetanus immune globulin Allergy Verified 07/25/18 23:59 IV DYE Allergy Uncoded 07/25/18 23:59 - Home Medications Home Medications: Ambulatory Orders Folic Acid - 1 mg PO DAILY 02/11/13 Docusate Sodium [Colace -] 100 mg PO DAILY 04/06/15 Montelukast Na [Singulair -] 10 mg PO HS 04/06/15 Losartan Potassium [Cozaar -] 50 mg PO DAILY 01/21/18 oxyCODONE SR [Oxycontin] 40 mg PO Q12H 05/21/18 Acetaminophen [Tylenol .Regular Strength -] 650 mg PO Q4H PRN tablet 05/26/18 Albuterol 0.083% Nebulizer Marichuy [Ventolin 0.083% Nebulizer Soln -] 1 amp NEB Q4H PRN amp 05/26/18 Gabapentin [Neurontin -] 300 mg PO BID capsule 06/15/18 Omeprazole 20 mg PO BID 06/27/18 Albuterol 2.5/Ipratropium 0.5 [Duoneb -] 1 amp NEB RQID amp 06/30/18 Apixaban [Eliquis] 5 mg PO BID #30 tablet MDD 2 06/30/18 Atenolol [Tenormin -] 25 mg PO DAILY tablet 06/30/18 Budesonide/Formeterol Fumarate [SYMBICORT 160/4.5mcg -] 1 inh PO BID #1 cannister 06/30/18 Cholecalciferol (Vitamin D3) [Vitamin D3 -] 1,000 unit PO DAILY tab 06/30/18 Cholecalciferol (Vitamin D3) [Vitamin D3 -] 1,000 unit PO DAILY #30 tab Duloxetine HCl [Cymbalta -] 30 mg PO BID #30 capsule. MDD 2 06/30/18 Sitagliptin Phosphate [Januvia -] 25 mg PO DAILY@0700 tab 06/30/18 Sitagliptin Phosphate [Januvia] 25 mg PO DAILY #30 tablet MDD 1 06/30/18 Tamsulosin HCl [Flomax -] 0.4 mg PO DAILY@0830 #30 cap.er.24h MDD 1 06/30/18 Tamsulosin HCl [Flomax] 0.4 mg PO DAILY #30 cap.er.24h MDD 1 06/30/18 Family Disease History - Family Disease History Family Disease History: Diabetes: Mother (HTN, TIIDM, Stroke), Heart Disease: Mother, CA: Father (Lung CA), Other: Mother Review of Systems - Review of Systems Constitutional: denies: Chills, Fever, Weakness Eyes: denies: Recent Change in Vision HENT: denies: Nasal Congestion, Throat Pain Neck: denies: Stiffness, Tenderness Cardiovascular: reports: Shortness of Breath. denies: Chest Pain, Edema, Palpitations Respiratory: reports: Cough, SOB on Exertion, Wheezing. denies: Hemoptysis Gastrointestinal: denies: Abdominal Pain, Nausea, Vomiting Genitourinary: denies: Dysuria, Hematuria Musculoskeletal: reports: Extremity Pain Neurological: denies: Dizziness, Headache Endocrine: denies: Unexplained Weight Loss Physical Exam Vital Sings: Vital Signs Temperature 98.2 F 07/26/18 11:55 Pulse Rate 95 H 07/26/18 11:55 Respiratory Rate 18 07/26/18 11:55 Blood Pressure 109/55 L 07/26/18 11:55 O2 Sat by Pulse Oximetry (%) 98 07/26/18 11:55 Constitutional: Yes: Calm Eyes: Yes: Conjunctiva Clear, EOM Intact HENT: Yes: Atraumatic, Normocephalic Neck: Yes: Supple, Trachea Midline Cardiovascular: Yes: Regular Rate and Rhythm Respiratory: Yes: Rhonchi, Wheezes ...Clubbing: No Gastrointestinal: Yes: Normal Bowel Sounds, Soft. No: Tenderness Edema: Yes Neurological: Yes: Alert, Oriented Labs: CBC, BMP 07/26/18 07:25 07/26/18 07:25 Imaging - Results Chest X-ray: Report Reviewed, Image Reviewed (elevated left hemidiaphragm) Problem List - Problems (1) COPD exacerbation Code(s): J44.1 - CHRONIC OBSTRUCTIVE PULMONARY DISEASE W (ACUTE) EXACERBATION (2) GUCCI (acute kidney injury) Code(s): N17.9 - ACUTE KIDNEY FAILURE, UNSPECIFIED Assessment/Plan Acute COPD Exacerbation Chronic Hypoxic Respiratory Failure Acute Kidney Injury Atrial Fibrillation h/o DVT/PE Sickle Cell Disease - short course of medrol 24-48hrs - inhaled bronchodilators standing and PRN - O2 to keep SpO2 >90% - IVF - monitor urine output, creatinine - send urinalysis, lytes, culture - rate control - continue anticoagulation Thank you for this consult Venkat Castro MD
[2018-07-26] MEDS ORDERED: ALBUTEROL SO4 0.083% IH SOL 2.5 MG/3 ML VIAL.NEB. NEB PRN (14:28)
[2018-07-26] MEDS: methylPREDNISolone NA SUCC 40 MG/1 ML VIAL IVPUSH SCH ×2 (15:37→17:10)
[2018-07-26] MEDS: ALBUTEROL SO4 2.5/IPRATROPIUM 0.5 INH SOL 3 ML VIAL.NEB. NEB SCH ×2 (17:00→20:50)
--- NOTE | 2018-07-26 17:59 | PN ---
Progress Note, Physician Chief Complaint: L Groin Pain COPD Exacerbation GUCCI Sickle Cell Disease History of Present Illness: Previous notes and events reviewed sleeping, easily arouseable to tactile stimuli NAD sts pain is about the same denies chest pain or SOB - Current Medication List Current Medications: Active Medications Acetaminophen (Tylenol -) 650 mg PO Q4H PRN PRN Reason: FEVER Albuterol Sulfate (Ventolin 0.083% Nebulizer Soln -) 1 amp NEB Q4H PRN PRN Reason: SHORT OF BREATH/WHEEZING Albuterol/Ipratropium (Duoneb -) 1 amp NEB RQID [facility] Last Admin: 07/26/18 17:00 Dose: 1 amp Budesonide/Formoterol Fumarate (Symbicort 160/4.5mcg -) 2 puff IH BID [facility] Docusate Sodium (Colace -) 100 mg PO DAILY [facility] Last Admin: 07/26/18 09:01 Dose: 100 mg Duloxetine HCl (Cymbalta -) 30 mg PO BID [facility] Last Admin: 07/26/18 09:01 Dose: 30 mg Folic Acid (Folic Acid -) 1 mg PO DAILY [facility] Last Admin: 07/26/18 09:01 Dose: 1 mg Gabapentin (Neurontin -) 300 mg PO TID [facility] Last Admin: 07/26/18 13:21 Dose: 300 mg Hydromorphone HCl (Dilaudid Vial -) 2 mg IVPB Q4H PRN PRN Reason: PAIN LEVEL 7 - 10 Methylprednisolone Sodium Succinate (Solu-Medrol -) 60 mg IVPUSH Q8H-IV [facility] Last Admin: 07/26/18 17:10 Dose: Not Given Oxycodone HCl (Roxicodone -) 5 mg PO Q2H PRN PRN Reason: PAIN LEVEL 4-6 Oxycodone HCl (Oxycontin -) 40 mg PO BID [facility] Last Admin: 07/26/18 09:03 Dose: 40 mg Pantoprazole Sodium (Protonix -) 20 mg PO BID [facility] Last Admin: 07/26/18 09:01 Dose: 20 mg Tamsulosin HCl (Flomax -) 0.4 mg PO DAILY@0830 [facility] Last Admin: 07/26/18 08:55 Dose: 0.4 mg - Objective Vital Signs: Vital Signs Temperature 98.1 F 07/26/18 17:17 Pulse Rate 95 H 07/26/18 17:17 Respiratory Rate 20 07/26/18 17:17 Blood Pressure 112/59 L 07/26/18 17:17 O2 Sat by Pulse Oximetry (%) 98 07/26/18 11:55 Constitutional: Yes: No Distress, Calm Eyes: Yes: Conjunctiva Clear HENT: Yes: Atraumatic Cardiovascular: Yes: Regular Rate and Rhythm Respiratory: Yes: Regular, CTA Bilaterally, On Nasal O2 Gastrointestinal: Yes: Normal Bowel Sounds, Soft Musculoskeletal: Yes: Muscle Weakness Extremities: Yes: WNL Edema: No Neurological: Yes: Alert, Oriented Psychiatric: Yes: Alert, Oriented Labs: CBC, BMP 07/26/18 07:25 07/26/18 07:25 INR, PTT INR 1.44 (0.83-1.09) H 07/26/18 07:25 - ....Imaging Ultrasound: Report Reviewed Problem List - Problems (1) GUCCI (acute kidney injury) Assessment/Plan: -BUN/Cr 33.2/2.2 -Renal US -monitor renal function -renal consult Code(s): N17.9 - ACUTE KIDNEY FAILURE, UNSPECIFIED (2) Afib Assessment/Plan: -Apixiban Code(s): I48.91 - UNSPECIFIED ATRIAL FIBRILLATION Qualifiers: Atrial fibrillation type: paroxysmal Qualified Code(s): I48.0 - Paroxysmal atrial fibrillation (3) COPD exacerbation Assessment/Plan: -Pulm consult -bronchodilators -Solumedrol -keep SpO2 >90% -O2 via NC Code(s): J44.1 - CHRONIC OBSTRUCTIVE PULMONARY DISEASE W (ACUTE) EXACERBATION (4) History of pulmonary embolism Assessment/Plan: -Apixiban Code(s): Z86.711 - PERSONAL HISTORY OF PULMONARY EMBOLISM (5) Sickle cell anemia Assessment/Plan: -pain control -Hematology consult -Folic acid Code(s): D57.1 - SICKLE-CELL DISEASE WITHOUT CRISIS Qualifiers: Sickle-cell associated disorders: without crisis Qualified Code(s): D57.1 - Sickle-cell disease without crisis (6) Type 2 diabetes mellitus with hyperosmolarity without nonketotic hyperglycemic-hyperosmolar coma ([facility]) Assessment/Plan: -BGM ACS -Januvia -ISS -HgA1c Code(s): E11.00 - TYPE 2 DIAB W HYPROSM W/O NONKET HYPRGLY-HYPROS COMA ([facility]) (7) HTN (hypertension) Assessment/Plan: -Losartan -low Na diet Code(s): I10 - ESSENTIAL (PRIMARY) HYPERTENSION Qualifiers: Hypertension type: essential hypertension Qualified Code(s): I10 - Essential (primary) hypertension (8) Edema extremities Assessment/Plan: -Lower extremity US neg for dvt Code(s): R60.0 - LOCALIZED EDEMA Assessment/Plan see problem list DVT ppx
[2018-07-26] MEDS: BUDESONIDE/FORMETEROL FUMARATE 160/4.5 mcg INHALER IH SCH ×2 (21:18)
[2018-07-26] MEDS: MONTELUKAST NA 10 MG TABLET PO SCH (21:18)
[2018-07-26] MEDS: INSULIN SLIDING SCALE (NOVOLOG) 1 VIAL SQ SCH (21:19)
[2018-07-26] MEDS: APIXABAN 5 MG TABLET PO SCH (21:19)
[2018-07-26 21:21] LABS: URINE APPEARANCE CLEAR; URINE BILIRUBIN NEGATIVE (NEGATIVE); URINE COLOR YELLOW; URINE GLUCOSE (UA) NEGATIVE (NEGATIVE); URINE KETONE NEGATIVE (NEGATIVE); URINE LEUK ESTERASE NEGATIVE (NEGATIVE); URINE NITRITE NEGATIVE (NEGATIVE); URINE PROTEIN NEGATIVE (NEGATIVE)
[2018-07-27] MEDS: methylPREDNISolone NA SUCC 40 MG/1 ML VIAL IVPUSH SCH ×3 (01:37→17:02)
[2018-07-27] MEDS: GABAPENTIN 300 MG CAPSULE (FP) PO SCH ×3 (06:33→21:35)
[2018-07-27] MEDS: INSULIN SLIDING SCALE (NOVOLOG) 1 VIAL SQ SCH ×4 (06:33→21:39)
[2018-07-27] MEDS: ALBUTEROL SO4 2.5/IPRATROPIUM 0.5 INH SOL 3 ML VIAL.NEB. NEB SCH ×4 (07:30→20:22)
[2018-07-27 08:18] LABS: HEMATOCRIT 24.6 % (32.4-45.2); HEMOGLOBIN 8.4 GM/dL (10.7-15.3); MCHC 34.3 g/dl (32.0-36.0); MEAN CELL VOLUME 84.8 fl (80-96); MEAN PLT VOLUME 8.3 fl (7.5-11.1); PLATELET COUNT 345 K/MM3 (134-434); RDW 18.2 % (11.6-15.6); WHITE BLOOD COUNT 8.7 K/mm3 (4.0-10.0)
[2018-07-27 08:31] LABS: ALBUMIN 2.9 g/dl (3.4-5.0); BILIRUBIN,TOTAL 0.6 mg/dL (0.2-1); BLOOD UREA NITROGEN 26.6 mg/dL (7-18); CREATININE 1.1 mg/dL (0.55-1.3); POTASSIUM 5.1 mmol/L (3.5-5.1)
[2018-07-27] MEDS ORDERED: PT OWN MED DRAWER 7, Y5N ONE (08:41)
[2018-07-27] MEDS: DOCUSATE SODIUM 100 MG CAPSULE (FP) PO SCH (09:57)
[2018-07-27] MEDS: LOSARTAN POTASSIUM 50 MG TABLET (FP) PO SCH (09:57)
[2018-07-27] MEDS: DULoxetine HCL 30 MG CAPSULE.DR PO SCH ×2 (09:58→21:35)
[2018-07-27] MEDS: ATENOLOL 25 MG TABLET (FP) PO SCH (09:58)
[2018-07-27] MEDS: PANTOPRAZOLE 20 MG TABLET (FP) PO SCH ×2 (09:58→21:48)
[2018-07-27] MEDS: FOLIC ACID 1 MG TABLET (FP) PO SCH (09:58)
[2018-07-27] MEDS: TAMSULOSIN HCL 0.4 MG CAP PO SCH (09:58)
[2018-07-27] MEDS: APIXABAN 5 MG TABLET PO SCH ×2 (09:58→21:35)
[2018-07-27] MEDS: CHOLECALCIFEROL (VIT D3) 1,000 UNIT (25 MCG) TABLET PO SCH (09:59)
[2018-07-27] MEDS: oxyCODONE HCL 40 MG SUSTAINED ACTING TABLET PO SCH ×2 (10:00→21:35)
[2018-07-27] MEDS: sitaGLIPtin PHOSPHATE 25 MG TABLET (FP) PO SCH (10:01)
[2018-07-27] MEDS: BUDESONIDE/FORMETEROL FUMARATE 160/4.5 mcg INHALER IH SCH ×3 (10:03→21:49)
--- NOTE | 2018-07-27 10:34 | PN ---
Progress Note (short form) - Note Progress Note: PULMONARY States breathing better today. Less cough and wheezing. Vital Signs Period Temp Pulse Resp BP Sys/Mendez Pulse Ox Last 24 Hr 97.8 F-98.7 F 94-106 18-20 109-139/55-67 94-98 Gen: less tachypneic Heart: RRR Lung: scattered rhonchi, wheezes Abd: soft, nontender Ext: no edema CBC, BMP 07/27/18 07:04 07/27/18 07:04 Active Medications Acetaminophen (Tylenol -) 650 mg PO Q4H PRN PRN Reason: FEVER Albuterol Sulfate (Ventolin 0.083% Nebulizer Soln -) 1 amp NEB Q4H PRN PRN Reason: SHORT OF BREATH/WHEEZING Albuterol/Ipratropium (Duoneb -) 1 amp NEB RQID [facility] Last Admin: 07/27/18 07:30 Dose: 1 amp Apixaban (Eliquis -) 5 mg PO BID [facility] Last Admin: 07/27/18 09:58 Dose: 5 mg Atenolol (Tenormin -) 25 mg PO DAILY [facility] Last Admin: 07/27/18 09:58 Dose: 25 mg Budesonide/Formoterol Fumarate (Symbicort 160/4.5mcg -) 2 puff IH BID [facility] Last Admin: 07/27/18 10:03 Dose: 2 puff Budesonide/Formoterol Fumarate (Symbicort 160/4.5mcg -) 1 puff IH BID [facility] Last Admin: 07/26/18 21:18 Dose: 1 puff Cholecalciferol (Vitamin D3 -) 1,000 unit PO DAILY [facility] Last Admin: 07/27/18 09:59 Dose: 1,000 unit Docusate Sodium (Colace -) 100 mg PO DAILY [facility] Last Admin: 07/27/18 09:57 Dose: 100 mg Duloxetine HCl (Cymbalta -) 30 mg PO BID [facility] Last Admin: 07/27/18 09:58 Dose: 30 mg Folic Acid (Folic Acid -) 1 mg PO DAILY [facility] Last Admin: 07/27/18 09:58 Dose: 1 mg Gabapentin (Neurontin -) 300 mg PO TID [facility] Last Admin: 07/27/18 06:33 Dose: 300 mg Hydromorphone HCl (Dilaudid Vial -) 2 mg IVPB Q4H PRN PRN Reason: PAIN LEVEL 7 - 10 Insulin Aspart (Novolog Vial Sliding Scale -) 1 vial SQ ACHS [facility]; Protocol Last Admin: 07/27/18 06:33 Dose: Not Given Losartan Potassium (Cozaar -) 50 mg PO DAILY [facility] Last Admin: 07/27/18 09:57 Dose: 50 mg Methylprednisolone Sodium Succinate (Solu-Medrol -) 60 mg IVPUSH Q8H-IV [facility] Last Admin: 07/27/18 10:01 Dose: 60 mg Montelukast Sodium (Singulair -) 10 mg PO HS [facility] Last Admin: 07/26/18 21:18 Dose: 10 mg Oxycodone HCl (Roxicodone -) 5 mg PO Q2H PRN PRN Reason: PAIN LEVEL 4-6 Oxycodone HCl (Oxycontin -) 40 mg PO BID [facility] Last Admin: 07/27/18 10:00 Dose: 40 mg Pantoprazole Sodium (Protonix -) 20 mg PO BID [facility] Last Admin: 07/27/18 09:58 Dose: 20 mg Sitagliptin Phosphate (Januvia -) 25 mg PO DAILY [facility] Last Admin: 07/27/18 10:01 Dose: 25 mg Tamsulosin HCl (Flomax -) 0.4 mg PO DAILY@0830 [facility] Last Admin: 07/27/18 09:58 Dose: 0.4 mg A/P Acute COPD Exacerbation Chronic Hypoxic Respiratory Failure Acute Kidney Injury Atrial Fibrillation h/o DVT/PE Sickle Cell Disease - will decrease medrol to 40mg q8h, can d/c in AM if continues to improve - inhaled bronchodilators standing and PRN - O2 to keep SpO2 >90% - IVF - monitor urine output, creatinine - send urinalysis, lytes, culture - rate control - continue anticoagulation Problem List - Problems (1) COPD exacerbation Code(s): J44.1 - CHRONIC OBSTRUCTIVE PULMONARY DISEASE W (ACUTE) EXACERBATION (2) GUCCI (acute kidney injury) Code(s): N17.9 - ACUTE KIDNEY FAILURE, UNSPECIFIED
--- NOTE | 2018-07-27 11:53 | PN ---
Progress Note, Physician Chief Complaint: LEFT LEG PAIN AND WEAKNESS VASC STUDY NEGATIVE DVT - Current Medication List Current Medications: Active Medications Acetaminophen (Tylenol -) 650 mg PO Q4H PRN PRN Reason: FEVER Albuterol Sulfate (Ventolin 0.083% Nebulizer Soln -) 1 amp NEB Q4H PRN PRN Reason: SHORT OF BREATH/WHEEZING Albuterol/Ipratropium (Duoneb -) 1 amp NEB RQID [facility] Last Admin: 07/27/18 11:14 Dose: 1 amp Apixaban (Eliquis -) 5 mg PO BID [facility] Last Admin: 07/27/18 09:58 Dose: 5 mg Atenolol (Tenormin -) 25 mg PO DAILY [facility] Last Admin: 07/27/18 09:58 Dose: 25 mg Budesonide/Formoterol Fumarate (Symbicort 160/4.5mcg -) 2 puff IH BID [facility] Last Admin: 07/27/18 10:03 Dose: 2 puff Cholecalciferol (Vitamin D3 -) 1,000 unit PO DAILY [facility] Last Admin: 07/27/18 09:59 Dose: 1,000 unit Docusate Sodium (Colace -) 100 mg PO DAILY [facility] Last Admin: 07/27/18 09:57 Dose: 100 mg Duloxetine HCl (Cymbalta -) 30 mg PO BID [facility] Last Admin: 07/27/18 09:58 Dose: 30 mg Folic Acid (Folic Acid -) 1 mg PO DAILY [facility] Last Admin: 07/27/18 09:58 Dose: 1 mg Gabapentin (Neurontin -) 300 mg PO TID [facility] Last Admin: 07/27/18 06:33 Dose: 300 mg Hydromorphone HCl (Dilaudid Vial -) 2 mg IVPB Q4H PRN PRN Reason: PAIN LEVEL 7 - 10 Insulin Aspart (Novolog Vial Sliding Scale -) 1 vial SQ ACHS [facility]; Protocol Last Admin: 07/27/18 11:42 Dose: Not Given Losartan Potassium (Cozaar -) 50 mg PO DAILY [facility] Last Admin: 07/27/18 09:57 Dose: 50 mg Methylprednisolone Sodium Succinate (Solu-Medrol -) 40 mg IVPUSH Q8H-IV [facility] Stop: 07/28/18 02:01 Montelukast Sodium (Singulair -) 10 mg PO HS [facility] Last Admin: 07/26/18 21:18 Dose: 10 mg Oxycodone HCl (Roxicodone -) 5 mg PO Q2H PRN PRN Reason: PAIN LEVEL 4-6 Oxycodone HCl (Oxycontin -) 40 mg PO BID [facility] Last Admin: 07/27/18 10:00 Dose: 40 mg Pantoprazole Sodium (Protonix -) 20 mg PO BID [facility] Last Admin: 07/27/18 09:58 Dose: 20 mg Sitagliptin Phosphate (Januvia -) 25 mg PO DAILY [facility] Last Admin: 07/27/18 10:01 Dose: 25 mg Tamsulosin HCl (Flomax -) 0.4 mg PO DAILY@0830 [facility] Last Admin: 07/27/18 09:58 Dose: 0.4 mg - Objective Vital Signs: Vital Signs Temperature 98.7 F 07/27/18 09:00 Pulse Rate 102 H 07/27/18 09:00 Respiratory Rate 20 07/27/18 09:00 Blood Pressure 139/65 07/27/18 09:00 O2 Sat by Pulse Oximetry (%) 96 07/27/18 08:13 Constitutional: Yes: Mild Distress Eyes: Yes: WNL HENT: Yes: WNL Neck: Yes: WNL Cardiovascular: Yes: Pulse Irregular Respiratory: Yes: Diminished, On Nasal O2 Gastrointestinal: Yes: Normal Bowel Sounds, Soft Genitourinary: Yes: WNL Musculoskeletal: Yes: Back Pain, Muscle Pain, Muscle Weakness Extremities: Yes: WNL Edema: Yes Peripheral Pulses WNL: Yes Integumentary: Yes: WNL Wound/Incision: Yes: Clean/Dry Neurological: Yes: Weakness ...Motor Strength: LLE Psychiatric: Yes: WNL Labs: CBC, BMP 07/27/18 07:04 07/27/18 07:04 INR, PTT INR 1.44 (0.83-1.09) H 07/26/18 07:25 Problem List - Problems (1) Edema extremities Code(s): R60.0 - LOCALIZED EDEMA (2) Acute renal failure Code(s): N17.9 - ACUTE KIDNEY FAILURE, UNSPECIFIED (3) Afib Code(s): I48.91 - UNSPECIFIED ATRIAL FIBRILLATION Qualifiers: Atrial fibrillation type: paroxysmal Qualified Code(s): I48.0 - Paroxysmal atrial fibrillation (4) Anemia Code(s): D64.9 - ANEMIA, UNSPECIFIED (5) Asthma Code(s): J45.909 - UNSPECIFIED ASTHMA, UNCOMPLICATED (6) Asthma attack Code(s): J45.901 - UNSPECIFIED ASTHMA WITH (ACUTE) EXACERBATION (7) Back sprain Code(s): NVG1013 - Assessment/Plan LEFT LEG PAIN SICKLE CELL PAIN? CHECK DOPPLER ARTERIAL NEURO EVAL PT EVAL/DR SHERRON ALVARADO TO CHAIR MRI LSPINE OUTPATIENT CONTINUE 02 SUPPORT AND PULM WORKUP
--- NOTE | 2018-07-27 13:14 | CONSULT ---
Consult - text type - Consultation Consultation Note: Renal consult for GUCCI This is a 73 year old woman with hx of sickle cell disease, COPD, 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 Pt states that her legs were swollen and she had radiating pain from her right hip to her right foot at home. She has SOB and orthopnea at night. No fever or chills. Denies any NSAID use at home. No recent IV contrast exposure. Was making urine at home, denies any flank pain, dysuria, frequency or urgency. No chest pain or sob now. Having vomiting episodes after eating lunch. PMHx: as above Allergies: As listed in EMR Family Hx: NC Social Hx: No T/A/D ROS: as per HPI Home Medications Medication Instructions Recorded Folic Acid - 1 mg PO DAILY 02/11/13 Docusate Sodium [Colace -] 100 mg PO DAILY 04/06/15 Montelukast Na [Singulair -] 10 mg PO HS 04/06/15 Losartan Potassium [Cozaar -] 50 mg PO DAILY 01/21/18 oxyCODONE SR [Oxycontin] 40 mg PO Q12H 05/21/18 Acetaminophen [Tylenol .Regular 650 mg PO Q4H PRN tablet 05/26/18 Strength -] Albuterol 0.083% Nebulizer Marichuy 1 amp NEB Q4H PRN amp 05/26/18 [Ventolin 0.083% Nebulizer Soln -] Gabapentin [Neurontin -] 300 mg PO BID capsule 06/15/18 Omeprazole 20 mg PO BID 06/27/18 Albuterol 2.5/Ipratropium 0.5 1 amp NEB RQID amp 06/30/18 [Duoneb -] Apixaban [Eliquis] 5 mg PO BID #30 tablet MDD 2 06/30/18 Atenolol [Tenormin -] 25 mg PO DAILY tablet 06/30/18 Budesonide/Formeterol Fumarate 1 inh PO BID #1 cannister 06/30/18 [SYMBICORT 160/4.5mcg -] Cholecalciferol (Vitamin D3) 1,000 unit PO DAILY tab 06/30/18 [Vitamin D3 -] Cholecalciferol (Vitamin D3) 1,000 unit PO DAILY #30 tab 06/30/18 [Vitamin D3 -] Duloxetine HCl [Cymbalta -] 30 mg PO BID #30 capsule. MDD 2 06/30/18 Sitagliptin Phosphate [Januvia -] 25 mg PO DAILY@0700 tab 06/30/18 Sitagliptin Phosphate [Januvia] 25 mg PO DAILY #30 tablet MDD 1 06/30/18 Tamsulosin HCl [Flomax -] 0.4 mg PO DAILY@0830 #30 06/30/18 cap.er.24h MDD 1 Tamsulosin HCl [Flomax] 0.4 mg PO DAILY #30 cap.er.24h MDD 06/30/18 1 Vital Signs Temperature 98.7 F 07/27/18 09:00 Pulse Rate 102 H 07/27/18 09:00 Respiratory Rate 20 07/27/18 09:00 Blood Pressure 139/65 07/27/18 09:00 O2 Sat by Pulse Oximetry (%) 96 07/27/18 08:13 Intake & Output 07/24/18 07/25/18 07/26/18 07/27/18 23:59 23:59 23:59 23:59 Intake Total 700 Balance 700 Weight 75.75 kg 79.577 kg 79.379 kg NAD awake and alert neck supple, no JVD RRR, no M/R CTA, no rales or wheeze soft ND, mild epigastric discomfort. no LE edmea CBC, BMP 07/27/18 07:04 07/27/18 07:04 Laboratory Tests 06/12/18 06/29/18 06/30/18 05:30 12:50 05:40 BUN Creatinine Calcium 8.6 8.8 8.3 L Albumin 2.7 L 07/26/18 07/26/18 07/27/18 02:20 07:25 07:04 BUN 33.2 H 26.6 H Creatinine Cancelled 2.2 H 1.1 Calcium Albumin Current Medications Acetaminophen (Tylenol -) 650 mg PO Q4H PRN PRN Reason: FEVER Albuterol Sulfate (Ventolin 0.083% Nebulizer Soln -) 1 amp NEB Q4H PRN PRN Reason: SHORT OF BREATH/WHEEZING Albuterol/Ipratropium (Duoneb -) 1 amp NEB RQID SORAYA Last Admin: 07/27/18 11:14 Dose: 1 amp Apixaban (Eliquis -) 5 mg PO BID [facility] Last Admin: 07/27/18 09:58 Dose: 5 mg Atenolol (Tenormin -) 25 mg PO DAILY [facility] Last Admin: 07/27/18 09:58 Dose: 25 mg Budesonide/Formoterol Fumarate (Symbicort 160/4.5mcg -) 2 puff IH BID [facility] Last Admin: 07/27/18 10:03 Dose: 2 puff Cholecalciferol (Vitamin D3 -) 1,000 unit PO DAILY [facility] Last Admin: 07/27/18 09:59 Dose: 1,000 unit Docusate Sodium (Colace -) 100 mg PO DAILY [facility] Last Admin: 07/27/18 09:57 Dose: 100 mg Duloxetine HCl (Cymbalta -) 30 mg PO BID [facility] Last Admin: 07/27/18 09:58 Dose: 30 mg Folic Acid (Folic Acid -) 1 mg PO DAILY [facility] Last Admin: 07/27/18 09:58 Dose: 1 mg Gabapentin (Neurontin -) 300 mg PO TID [facility] Last Admin: 07/27/18 06:33 Dose: 300 mg Hydromorphone HCl (Dilaudid Vial -) 2 mg IVPB Q4H PRN PRN Reason: PAIN LEVEL 7 - 10 Famotidine/Sodium Chloride (Pepcid 20 Mg Premixed Ivpb -) 20 mg in 50 mls @ 100 mls/hr IVPB ONCE ONE Stop: 07/27/18 13:53 Insulin Aspart (Novolog Vial Sliding Scale -) 1 vial SQ ACHS [facility]; Protocol Last Admin: 07/27/18 11:42 Dose: Not Given Losartan Potassium (Cozaar -) 50 mg PO DAILY [facility] Last Admin: 07/27/18 09:57 Dose: 50 mg Methylprednisolone Sodium Succinate (Solu-Medrol -) 40 mg IVPUSH Q8H-IV [facility] Stop: 07/28/18 02:01 Montelukast Sodium (Singulair -) 10 mg PO HS [facility] Last Admin: 07/26/18 21:18 Dose: 10 mg Ondansetron HCl (Zofran Injection) 4 mg IVPUSH Q8H PRN PRN Reason: NAUSEA Oxycodone HCl (Roxicodone -) 5 mg PO Q2H PRN PRN Reason: PAIN LEVEL 4-6 Oxycodone HCl (Oxycontin -) 40 mg PO BID [facility] Last Admin: 07/27/18 10:00 Dose: 40 mg Pantoprazole Sodium (Protonix -) 20 mg PO BID [facility] Last Admin: 07/27/18 09:58 Dose: 20 mg Sitagliptin Phosphate (Januvia -) 25 mg PO DAILY [facility] Last Admin: 07/27/18 10:01 Dose: 25 mg Tamsulosin HCl (Flomax -) 0.4 mg PO DAILY@0830 [facility] Last Admin: 07/27/18 09:58 Dose: 0.4 mg 73 year old woman with hx of sickle cell disease, COPD, 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 #GUCCI secondary to volume depletion vs. urinary retention #COPD exacerbation #Acute on chronic anemia #Hypertension #Hx of left simple renal cyst #Vomiting after eating/Epigastric discomfort Renal function now improved to normal and pt also has resolution of leg edmea etiology of renal injury is unclear but given rapid improvement would suspect hemodynamic injury (fluid shifts + ARB mediated renal vasoconstriction) monitor off IVF for now trend renal function and electrolytes continue Losartan and atenolol Check Abd x-ray to r/o dilated bowel loops give vomiting will given zofran and IV pepcid for nausea or epigastric discomfort continue steroid as per pulmonary Thank you Enrique Flores DO
[2018-07-27] MEDS ORDERED: ONDANSETRON 4 MG/2 ML VIAL IVPUSH PRN (13:24)
[2018-07-27] MEDS ORDERED: FAMOTIDINE 20 MG/50 ML IVPB 20 MG/50 ML MG IVPB ONE (13:24)
--- NOTE | 2018-07-27 14:24 | CONSULT ---
Consultation: REQUESTING PROVIDER: CONSULT REQUEST: We have been asked to medically evaluate this patient for sickle cell. 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 It started as foot pain that radiated up to left hip and then to left groin. She was also found to have GUCCI. She states that the pain didn't feel like sickle cell pain. Today it's resolved. She denies SOB, chest pain, palpitations, cough, pleuritic pain, hemoptysis, palpitations, dark urine. She states that last sickle cell attack was last year. She is compliant with her home medications. PSH: Yes: Cholecystectomy, Hysterectomy, Joint Replacement (bilateral hip replacements) SH: no toxic habits FH: multiple family members due to unknown reasons, no other SC, only trait in family REVIEW OF SYSTEMS: CONSTITUTIONAL: Absent: fever, chills, diaphoresis, generalized weakness, weight change HEENT: Absent: rhinorrhea, nasal congestion, throat pain, throat swelling, difficulty swallowing CARDIOVASCULAR: Absent: chest pain, syncope, palpitations, irregular heart rate, lightheadedness , peripheral edema RESPIRATORY: Absent: cough, shortness of breath, orthopnea, wheezing GASTROINTESTINAL: Absent: abdominal pain, nausea, vomiting, diarrhea, constipation GENITOURINARY: Absent: dysuria, frequency, urgency, hesitancy, hematuria, flank pain, genital pain MUSCULOSKELETAL: Absent: myalgia, arthralgia, joint swelling, back pain, neck pain SKIN: Absent: rash, itching, pallor HEMATOLOGIC/IMMUNOLOGIC: Absent: easy bleeding, easy bruising, lymphadenopathy, frequent infections ENDOCRINE: Absent: unexplained weight gain, unexplained weight loss NEUROLOGIC: Absent: headache, dizziness PSYCHIATRIC: Absent: anxiety, depression PHYSICAL EXAMINATION Vital Signs - 24 hr 07/26/18 07/26/18 07/26/18 17:17 19:30 20:36 Temperature 98.1 F 97.8 F Pulse Rate 95 H 106 H Respiratory 20 20 Rate Blood Pressure 112/59 L 120/63 O2 Sat by Pulse 94 L Oximetry (%) 07/27/18 07/27/18 07/27/18 05:00 08:13 09:00 Temperature 98.4 F 98.7 F Pulse Rate 106 H 102 H Respiratory 20 20 20 Rate Blood Pressure 118/59 L 139/65 O2 Sat by Pulse 96 Oximetry (%) GENERAL: Awake, alert, and fully oriented, in no acute distress. HEAD: Normal with no signs of trauma. EYES: extraocular movements intact, sclera anicteric, conjunctiva clear. EARS, NOSE, THROAT: Moist mucous membranes. NECK:supple LUNGS: Breath sounds equal, clear to auscultation bilaterally HEART: Regular rate and rhythm, normal S1 and S2 ABDOMEN: Soft, nontender, not distended, normoactive bowel sounds, no masses. MUSCULOSKELETAL: No CVA tenderness. LOWER EXTREMITIES: 2+ pulses, warm, well-perfused. No calf tenderness. No peripheral edema. NEUROLOGICAL; Normal speech, no facial asymmetry. PSYCHIATRIC: Cooperative. Good eye contact. Appropriate mood and affect. SKIN: Warm, dry Laboratory Results - last 24 hr 07/26/18 07/26/18 07/26/18 20:47 20:50 20:50 WBC RBC Hgb Hct MCV MCH MCHC RDW Plt Count MPV Sodium Potassium Chloride Carbon Dioxide Anion Gap BUN Creatinine Est GFR (CKD-EPI)AfAm Est GFR (CKD-EPI)NonAf POC Glucometer 174 Random Glucose Calcium Total Bilirubin AST ALT Alkaline Phosphatase Total Protein Albumin Urine Color Yellow Urine Appearance Clear Urine pH 5.0 Ur Specific Meally 1.011 Urine Protein Negative Urine Glucose (UA) Negative Urine Ketones Negative Urine Blood Negative Urine Nitrite Negative Urine Bilirubin Negative Urine Urobilinogen 1.0 Ur Leukocyte Esterase Negative Ur Random Sodium 34 L Ur Random Potassium 33.8 Ur Random Chloride 60 L 07/27/18 07/27/18 07/27/18 06:12 07:04 07:04 WBC 8.7 RBC 2.90 L Hgb 8.4 L Hct 24.6 L MCV 84.8 MCH 29.0 MCHC 34.3 RDW 18.2 H Plt Count 345 MPV 8.3 Sodium 139 Potassium 5.1 Chloride 105 Carbon Dioxide 30 Anion Gap 4 L BUN 26.6 H Creatinine 1.1 Est GFR (CKD-EPI)AfAm 57.28 Est GFR (CKD-EPI)NonAf 49.42 POC Glucometer 171 Random Glucose 161 H Calcium 9.0 Total Bilirubin 0.6 AST 31 ALT 9 L Alkaline Phosphatase 95 Total Protein 7.0 Albumin 2.9 L Urine Color Urine Appearance Urine pH Ur Specific Meally Urine Protein Urine Glucose (UA) Urine Ketones Urine Blood Urine Nitrite Urine Bilirubin Urine Urobilinogen Ur Leukocyte Esterase Ur Random Sodium Ur Random Potassium Ur Random Chloride 07/27/18 11:39 WBC RBC Hgb Hct MCV MCH MCHC RDW Plt Count MPV Sodium Potassium Chloride Carbon Dioxide Anion Gap BUN Creatinine Est GFR (CKD-EPI)AfAm Est GFR (CKD-EPI)NonAf POC Glucometer 125 Random Glucose Calcium Total Bilirubin AST ALT Alkaline Phosphatase Total Protein Albumin Urine Color Urine Appearance Urine pH Ur Specific Meally Urine Protein Urine Glucose (UA) Urine Ketones Urine Blood Urine Nitrite Urine Bilirubin Urine Urobilinogen Ur Leukocyte Esterase Ur Random Sodium Ur Random Potassium Ur Random Chloride Active Medications Generic Name Dose Route Start Last Admin Trade Name Freq PRN Reason Stop Dose Admin Acetaminophen 650 mg 07/26/18 05:55 Tylenol - PO Q4H PRN FEVER Albuterol Sulfate 1 amp 07/26/18 14:28 Ventolin 0.083% Nebulizer Soln - NEB Q4H PRN SHORT OF BREATH/WHEEZING Albuterol/Ipratropium 1 amp 07/26/18 16:00 07/27/18 11:14 Duoneb - NEB 1 amp RQID SORAYA Administration Apixaban 5 mg 07/26/18 22:00 07/27/18 09:58 Eliquis - PO 5 mg BID SORAYA Administration Atenolol 25 mg 07/27/18 10:00 07/27/18 09:58 Tenormin - PO 25 mg DAILY SORAYA Administration Budesonide/Formoterol Fumarate 2 puff 07/26/18 22:00 07/27/18 10:03 Symbicort 160/4.5mcg - IH 2 puff BID SORAYA Administration Cholecalciferol 1,000 unit 07/27/18 10:00 07/27/18 09:59 Vitamin D3 - PO 1,000 unit DAILY SORAYA Administration Docusate Sodium 100 mg 07/26/18 10:00 07/27/18 09:57 Colace - PO 100 mg DAILY SORAYA Administration Duloxetine HCl 30 mg 07/26/18 10:00 07/27/18 09:58 Cymbalta - PO 30 mg BID SORAYA Administration Folic Acid 1 mg 07/26/18 10:00 07/27/18 09:58 Folic Acid - PO 1 mg DAILY SORAYA Administration Gabapentin 300 mg 07/26/18 06:00 07/27/18 13:29 Neurontin - PO 300 mg TID SORAYA Administration Hydromorphone HCl 2 mg 07/26/18 05:47 Dilaudid Vial - IVPB Q4H PRN PAIN LEVEL 7 - 10 Insulin Aspart 1 vial 07/26/18 22:00 07/27/18 11:42 Novolog Vial Sliding Scale - SQ Not Given ACHS [facility] Protocol Losartan Potassium 50 mg 07/27/18 10:00 07/27/18 09:57 Cozaar - PO 50 mg DAILY SORAYA Administration Methylprednisolone Sodium Succinate 40 mg 07/27/18 18:00 Solu-Medrol - IVPUSH 07/28/18 02:01 Q8H-IV SORAYA Montelukast Sodium 10 mg 07/26/18 22:00 07/26/18 21:18 Singulair - PO 10 mg HS SORAYA Administration Ondansetron HCl 4 mg 07/27/18 13:24 07/27/18 13:45 Zofran Injection IVPUSH 4 mg Q8H PRN Administration NAUSEA Oxycodone HCl 5 mg 07/26/18 05:54 Roxicodone - PO Q2H PRN PAIN LEVEL 4-6 Oxycodone HCl 40 mg 07/26/18 10:00 07/27/18 10:00 Oxycontin - PO 40 mg BID SORAYA Administration Pantoprazole Sodium 20 mg 07/26/18 10:00 07/27/18 09:58 Protonix - PO 20 mg BID SORAYA Administration Sitagliptin Phosphate 25 mg 07/27/18 10:00 07/27/18 10:01 Januvia - PO 25 mg DAILY SORAYA Administration Tamsulosin HCl 0.4 mg 07/26/18 08:30 07/27/18 09:58 Flomax - PO 0.4 mg DAILY@0830 SORAYA Administration ASSESSMENT/PLAN: This is a 73 y/o F with PMH of Hgb SC disease, COPD, Asthma, PE on eliquis, admitted for groin pain, GUCCI. SC disease r/o crisis normocytic anemia stable cp gucci copd ecxacerbation asthma h/o PE/dvt on eliquis anemia stable, retic 1.55 cont folate cont treatment for COPD exacerbation, stop steroids as it may presidspose to sickle cell crisis GUCCI resolving Dispo: We will continue to follow the patient. Thank you for this consultative opportunity. Problem List - Problems (1) GUCCI (acute kidney injury) Code(s): N17.9 - ACUTE KIDNEY FAILURE, UNSPECIFIED (2) Anemia Code(s): D64.9 - ANEMIA, UNSPECIFIED (3) Asthma Code(s): J45.909 - UNSPECIFIED ASTHMA, UNCOMPLICATED (4) COPD (chronic obstructive pulmonary disease) Code(s): J44.9 - CHRONIC OBSTRUCTIVE PULMONARY DISEASE, UNSPECIFIED (5) History of pulmonary embolism Code(s): Z86.711 - PERSONAL HISTORY OF PULMONARY EMBOLISM Visit type - Emergency Visit Emergency Visit: Yes ED Registration Date: 07/26/18 Care time: The patient presented to the Emergency Department on the above date and was hospitalized for further evaluation of their emergent condition. - New Patient This patient is new to me today: Yes Date on this admission: 07/27/18 - Critical Care Critical Care patient: No
--- NOTE | 2018-07-27 16:13 | CONSULT ---
Consult Consult Specialty:: PM&R Dr Duff for Dr Conley - History of Present Illness Chief Complaint: LLE pain, much better History of Present Illness: This is a 73 year old woman with a medical history of COPD, asthma/ bronchitis, PE/ DVT, sickle cell disease, peripheral neuropathy, who presented to the [facility] with BLE swelling and LLE pain x6 days. Pain was sharp/ pounding from the foot up the leg to the groin, up to 20/10, now 5/10. She reports having had lumbar surgery years ago; this pain is not like either her chronic radiculopathy or sickle cell crisis. 07/26/18 BLE doppler US was negative for DVT. Pulm was consulted for acute COPD exacerbation. Renal was consulted for GUCCI. Heme-Onc was consulted for sickle cell. Physiatry is being consulted for further recommendations. - History Source History Provided By: Patient - Past Medical History Cardio/Vascular: Yes: Deep Vein Thrombosis, HTN, Other (PE) Pulmonary: Yes: COPD, Pulmonary Embolus ...: No Psych: Yes: Addictions, Other (Pain meds- methadone, oxycodone ) Musculoskeletal: Yes: Chronic low back pain - Past Surgical History Past Surgical History: Yes: Cholecystectomy, Hysterectomy, Joint Replacement ( bilateral hip replacements) - Alcohol/Substance Use Hx Alcohol Use: No History of Substance Use: reports: Prescription - Smoking History Smoking history: Never smoked Have you smoked in the past 12 months: No Aproximately how many cigarettes per day: 0 - Social History Usual Living Arrangement: With Spouse (in apartment with 3-4 steps to enter) ADL: Independent (was awaiting new Rollator) History of Recent Travel: No Home Medications - Allergies Allergies/Adverse Reactions: Allergies Allergy/AdvReac Type Severity Reaction Status Date / Time ciprofloxacin [From Cipro] Allergy Itching Verified 07/25/18 23:59 ciprofloxacin HCl Allergy Itching Verified 07/25/18 23:59 [From Cipro] codeine [Codeine] Allergy Verified 07/25/18 23:59 levofloxacin [From Levaquin] Allergy Itching Verified 07/25/18 23:59 Penicillins Allergy Itching Verified 07/25/18 23:59 Sulfa (Sulfonamide Allergy Verified 07/25/18 23:59 Antibiotics) tetanus immune globulin Allergy Verified 07/25/18 23:59 IV DYE Allergy Uncoded 07/25/18 23:59 - Home Medications Home Medications: Ambulatory Orders Folic Acid - 1 mg PO DAILY 02/11/13 Docusate Sodium [Colace -] 100 mg PO DAILY 04/06/15 Montelukast Na [Singulair -] 10 mg PO HS 04/06/15 Losartan Potassium [Cozaar -] 50 mg PO DAILY 01/21/18 oxyCODONE SR [Oxycontin] 40 mg PO Q12H 05/21/18 Acetaminophen [Tylenol .Regular Strength -] 650 mg PO Q4H PRN tablet 05/26/18 Albuterol 0.083% Nebulizer Marichuy [Ventolin 0.083% Nebulizer Soln -] 1 amp NEB Q4H PRN amp 05/26/18 Gabapentin [Neurontin -] 300 mg PO BID capsule 06/15/18 Omeprazole 20 mg PO BID 06/27/18 Albuterol 2.5/Ipratropium 0.5 [Duoneb -] 1 amp NEB RQID amp 06/30/18 Apixaban [Eliquis] 5 mg PO BID #30 tablet MDD 2 06/30/18 Atenolol [Tenormin -] 25 mg PO DAILY tablet 06/30/18 Budesonide/Formeterol Fumarate [SYMBICORT 160/4.5mcg -] 1 inh PO BID #1 cannister 06/30/18 Cholecalciferol (Vitamin D3) [Vitamin D3 -] 1,000 unit PO DAILY tab 06/30/18 Cholecalciferol (Vitamin D3) [Vitamin D3 -] 1,000 unit PO DAILY #30 tab Duloxetine HCl [Cymbalta -] 30 mg PO BID #30 capsule. MDD 2 06/30/18 Sitagliptin Phosphate [Januvia -] 25 mg PO DAILY@0700 tab 06/30/18 Sitagliptin Phosphate [Januvia] 25 mg PO DAILY #30 tablet MDD 1 06/30/18 Tamsulosin HCl [Flomax -] 0.4 mg PO DAILY@0830 #30 cap.er.24h MDD 1 06/30/18 Tamsulosin HCl [Flomax] 0.4 mg PO DAILY #30 cap.er.24h MDD 1 06/30/18 Family Disease History - Family Disease History Family Disease History: Diabetes: Mother (HTN, TIIDM, Stroke), Heart Disease: Mother, CA: Father (Lung CA), Other: Mother Review of Systems Findings/Remarks: Denies fevers, chills, changes in vision/ hearing/ mood, CP, abdominal pain, nausea, constipation, diarrhea, dysuria. Notes LLE pain as per HPI, SOB ( improving but not yet at baseline), vomiting x1 today, and B foot paresthesias. Physical Exam Vital Signs: Vital Signs Temperature 98.7 F 07/27/18 09:00 Pulse Rate 102 H 07/27/18 09:00 Respiratory Rate 07/27/18 09:00 Blood Pressure 139/65 07/27/18 09:00 O2 Sat by Pulse Oximetry (%) 96 07/27/18 08:13 Musculoskeletal: Yes: Other (General: calm elderly AAF sitting EOB NAD, AAO x3 N /M: R shoulder flexion to 90 degrees, L shoulder flexion to 140 degrees, 4+/5 B delt/ HF then 5-/5 BUE/ BLE; Pinprick decreased L 1st webspace then Intact BUE/ BLE Extremities: 1+ B foot pitting edema, no B calf tenderness, +L/ -R slump test; no pain with lumbar flexion, pt declines lumbar extension) Labs: CBC, BMP 07/27/18 07:04 07/27/18 07:04 Imaging - Results Ultrasound: Report Reviewed (as per HPI) Assessment/Plan Impression: 1) Deficits mobility/ ADLs 2) Deconditioning 3) Gait abnormality 4) hx lumbar surgery with likely new L L5 radiculopathy 5) Acute COPD exacerbation with hx asthma/ bronchitis 6) 07/25/18 doppler US negative for DVT with hx PE/ DVT 7) Sickle cell disease, r/o crisis 8) hx peripheral neuropathy 9) UGCCI 10) Obesity 11) hx B hip replacement Recommendations: 1) PT for core strengthening and functional mobility 2) Falls, safety precautions 3) Pulmonary precautions 4) Consider imaging for LS spine to evaluate prior surgery such as MRI, which can be done as outpatient as pain and function significantly improved 5) EMG LLE as outpatient 6) DVT ppx: on Eliquis 7) Pain management regimen- she is very pleased with current regimen 8) Nutrition consult for obesity 9) Continue plan per primary team 10) Discharge planning: will obtain PT consult for ambulation/ stairs, she may be able to return home versus inpatient rehabilitation Thank you for this referral.
--- NOTE | 2018-07-27 16:19 | CONSULT ---
Consult - text type - Consultation Consultation Note: NEUROLOGY CONSULT GREATLY APPRECIATED: Events reviewed and discussed with CRISTELA Ramirez. Last seen by me in consult . Consults by pulmonary, nephrology, PM & R appreciated. This 73 yo RH woman has pmhx COPD, HTN, PE/DVT (on apixiban) Sickle Cell Disease, depression, chronic LBP. Maintained on: folic acid, singular, symbicort, gabapentin, losartan, oxycodone 30 mg QID, apixaban, duloxetine. Surgical hx includes bladder mesh, B/L THR, s/p LS surgery. Admitted after B/L leg swelling and new "stabbing" pains in left hip down lateral thigh into ankle x 1 week. This was improved with additional IV narcotics and hold of ROSLYN inhibitor. ROS: chronic low back pain with radiation into both legs and unable to walk one block attributed to "exertional dyspnea." WBC 15.8 -> 8.7. MCV 85.7 BUN/CR 35.6/2.6. CK= 1057 Vascular and Venous studies of legs: no DVT or hemodynamic stenosis. BINA: No bruit. Neck supple. Neg SLR. Trace pitting edema in feet. NEURO: Awake, alert oriented x 3. CNII-CNXII: EOM's full without nystagmus. Full parks. No facial. Motor: No drift. Strength normal despite suboptimal effort. Reflexes brisk throughout including AJ's. Toes downgoing. Coordination: No FTN dystaxia Sensation: Normal vibration. Romberg - Gait: Flexed, slight shuffle. 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 R/O Lumbosacral spinal stenosis (LSSS) Suggest: PT assessment of gait and Rx with cane/walker Continue current regimen MRI of LS Spine (C- due to RI) Neuro f/u as out patient for EMG studies of the legs Thank you very much, Roshan Holt MD
[2018-07-27] MEDS: MONTELUKAST NA 10 MG TABLET PO SCH (21:35)
--- NOTE | 2018-07-27 23:33 | PN ---
Teaching Attending Note Name of Resident: Ene Yarbrough ATTENDING PHYSICIAN STATEMENT I saw and evaluated the patient. I reviewed the resident's note and discussed the case with the resident. I agree with the resident's findings and plan as documented. ASSESSMENT AND PLAN: 73 y/o patient with SC disease , HTN, DM, afib on eliquis admitted with right lower extremity pain, , COPD exacerbation, GUCCI CXR --normal Clinically improved HGb --8s ( baseline 10-11) Monitor Discussed wi pulmonary -- to taper off steroids on pain meds monitor clinical course
[2018-07-28] MEDS: methylPREDNISolone NA SUCC 40 MG/1 ML VIAL IVPUSH SCH (02:32)
[2018-07-28] MEDS: GABAPENTIN 300 MG CAPSULE (FP) PO SCH ×3 (06:00→21:14)
[2018-07-28] MEDS: INSULIN SLIDING SCALE (NOVOLOG) 1 VIAL SQ SCH ×4 (06:01→21:16)
[2018-07-28] MEDS: ALBUTEROL SO4 2.5/IPRATROPIUM 0.5 INH SOL 3 ML VIAL.NEB. NEB SCH ×4 (07:20→20:23)
[2018-07-28 07:32] LABS: HEMATOCRIT 24.8 % (32.4-45.2); HEMOGLOBIN 8.3 GM/dL (10.7-15.3); MCH 28.6 pg (25.7-33.7); MCHC 33.5 g/dl (32.0-36.0); MEAN CELL VOLUME 85.3 fl (80-96); MEAN PLT VOLUME 8.1 fl (7.5-11.1); PLATELET COUNT 358 K/MM3 (134-434); RBC 2.91 M/mm3 (3.60-5.2); RDW 18.5 % (11.6-15.6); WHITE BLOOD COUNT 15.2 K/mm3 (4.0-10.0)
[2018-07-28 08:03] LABS: ALBUMIN 3.1 g/dl (3.4-5.0); BILIRUBIN,TOTAL 0.7 mg/dL (0.2-1); BLOOD UREA NITROGEN 32.5 mg/dL (7-18); CREATININE 1.1 mg/dL (0.55-1.3); MAGNESIUM 2.2 mg/dL (1.8-2.4); PHOSPHOROUS 2.8 mg/dL (2.5-4.9); POTASSIUM 4.3 mmol/L (3.5-5.1); TOT PROT 7.2 g/dl (6.4-8.2)
[2018-07-28] MEDS ORDERED: PT OWN MED DRAWER 7, Y5N ONE (09:52)
[2018-07-28] MEDS: ATENOLOL 25 MG TABLET (FP) PO SCH (09:53)
[2018-07-28] MEDS: PANTOPRAZOLE 20 MG TABLET (FP) PO SCH ×2 (09:53→21:14)
[2018-07-28] MEDS: TAMSULOSIN HCL 0.4 MG CAP PO SCH (09:53)
[2018-07-28] MEDS: oxyCODONE HCL 40 MG SUSTAINED ACTING TABLET PO SCH ×2 (09:54→21:14)
[2018-07-28] MEDS: APIXABAN 5 MG TABLET PO SCH ×2 (09:54→21:14)
[2018-07-28] MEDS: CHOLECALCIFEROL (VIT D3) 1,000 UNIT (25 MCG) TABLET PO SCH (09:54)
[2018-07-28] MEDS: FOLIC ACID 1 MG TABLET (FP) PO SCH (09:54)
[2018-07-28] MEDS: DOCUSATE SODIUM 100 MG CAPSULE (FP) PO SCH (09:54)
[2018-07-28] MEDS: DULoxetine HCL 30 MG CAPSULE.DR PO SCH ×2 (09:54→21:14)
[2018-07-28] MEDS: LOSARTAN POTASSIUM 50 MG TABLET (FP) PO SCH (09:55)
[2018-07-28] MEDS: sitaGLIPtin PHOSPHATE 25 MG TABLET (FP) PO SCH (09:55)
[2018-07-28] MEDS: BUDESONIDE/FORMETEROL FUMARATE 160/4.5 mcg INHALER IH SCH ×2 (09:58→21:18)
[2018-07-28 10:28] LABS: ANISOCYTOSIS 0; MACROCYTOSIS 0; PLATELET ESTIMATE NORMAL
--- NOTE | 2018-07-28 12:53 | PN ---
Progress Note (short form) - Note Progress Note: PULMONARY States breathing better today. VSS/AFEBRILE Gen: less tachypneic Heart: RRR Lung: scattered rhonchi, wheezes Abd: soft, nontender Ext: no edema A/P Acute COPD Exacerbation resolved Chronic Hypoxic Respiratory Failure Acute Kidney Injury Atrial Fibrillation h/o DVT/PE Sickle Cell Disease - inhaled bronchodilators standing and PRN - O2 to keep SpO2 >90% - monitor urine output, creatinine - rate control - continue anticoagulation Yobany NGUYEN MD
--- NOTE | 2018-07-28 14:08 | PN ---
Progress Note (short form) - Note Progress Note: Renal follow up for GUCCI Pt seen and examined at the bedside no acute complaints no sob, cp, abd pain, fever or chills no further N/V Vital Signs Temperature 98.5 F 07/28/18 06:00 Pulse Rate 87 07/28/18 06:00 Respiratory Rate 20 07/28/18 06:00 Blood Pressure 144/74 07/28/18 06:00 O2 Sat by Pulse Oximetry (%) 96 07/27/18 20:54 Intake & Output 07/25/18 07/26/18 07/27/18 07/28/18 23:59 23:59 23:59 23:59 Intake Total 700 650 Balance 700 650 Weight 75.75 kg 79.577 kg 79.379 kg 78.109 kg NAD RRR, no M/R CTA, no rales or wheeze soft NT/ND no LE edmea CBC, BMP 07/28/18 06:42 07/28/18 06:42 Current Medications Acetaminophen (Tylenol -) 650 mg PO Q4H PRN PRN Reason: FEVER Albuterol Sulfate (Ventolin 0.083% Nebulizer Soln -) 1 amp NEB Q4H PRN PRN Reason: SHORT OF BREATH/WHEEZING Albuterol/Ipratropium (Duoneb -) 1 amp NEB RQID [facility] Last Admin: 07/28/18 11:40 Dose: 1 amp Apixaban (Eliquis -) 5 mg PO BID [facility] Last Admin: 07/28/18 09:54 Dose: 5 mg Atenolol (Tenormin -) 25 mg PO DAILY [facility] Last Admin: 07/28/18 09:53 Dose: 25 mg Budesonide/Formoterol Fumarate (Symbicort 160/4.5mcg -) 2 puff IH BID [facility] Last Admin: 07/28/18 09:58 Dose: 2 puff Cholecalciferol (Vitamin D3 -) 1,000 unit PO DAILY [facility] Last Admin: 07/28/18 09:54 Dose: 1,000 unit Docusate Sodium (Colace -) 100 mg PO DAILY [facility] Last Admin: 07/28/18 09:54 Dose: 100 mg Duloxetine HCl (Cymbalta -) 30 mg PO BID [facility] Last Admin: 07/28/18 09:54 Dose: 30 mg Folic Acid (Folic Acid -) 1 mg PO DAILY [facility] Last Admin: 07/28/18 09:54 Dose: 1 mg Gabapentin (Neurontin -) 300 mg PO TID [facility] Last Admin: 07/28/18 06:00 Dose: 300 mg Hydromorphone HCl (Dilaudid Vial -) 2 mg IVPB Q4H PRN PRN Reason: PAIN LEVEL 7 - 10 Insulin Aspart (Novolog Vial Sliding Scale -) 1 vial SQ ACHS [facility]; Protocol Last Admin: 07/28/18 12:25 Dose: Not Given Losartan Potassium (Cozaar -) 50 mg PO DAILY [facility] Last Admin: 07/28/18 09:55 Dose: 50 mg Montelukast Sodium (Singulair -) 10 mg PO HS [facility] Last Admin: 07/27/18 21:35 Dose: 10 mg Ondansetron HCl (Zofran Injection) 4 mg IVPUSH Q8H PRN PRN Reason: NAUSEA Last Admin: 07/27/18 13:45 Dose: 4 mg Oxycodone HCl (Roxicodone -) 5 mg PO Q2H PRN PRN Reason: PAIN LEVEL 4-6 Oxycodone HCl (Oxycontin -) 40 mg PO BID [facility] Last Admin: 07/28/18 09:54 Dose: 40 mg Pantoprazole Sodium (Protonix -) 20 mg PO BID [facility] Last Admin: 07/28/18 09:53 Dose: 20 mg Sitagliptin Phosphate (Januvia -) 25 mg PO DAILY [facility] Last Admin: 07/28/18 09:55 Dose: 25 mg Tamsulosin HCl (Flomax -) 0.4 mg PO DAILY@0830 [facility] Last Admin: 07/28/18 09:53 Dose: 0.4 mg 73 year old woman with hx of sickle cell disease, COPD, 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 #GUCCI secondary to volume depletion vs. urinary retention #COPD exacerbation #Acute on chronic anemia #Hypertension #Hx of left simple renal cyst #Vomiting after eating/Epigastric discomfort Renal function improved and stable no overt electrolyte or acid base disturbance pt appears euvolemic continue Losartan and atenolol Abd X-ray showed constipation, on colace Will sign off case at this time thank you for allow us to take part in the care of this patient Thank you Enrique Flores DO
--- NOTE | 2018-07-28 14:53 | PN ---
Progress Note, Physician Chief Complaint: L Groin Pain COPD Exacerbation GUCCI Sickle Cell Disease History of Present Illness: Previous notes and events reviewed sleeping, easily arouseable to tactile stimuli NAD sts pain has improved denies chest pain or SOB - Current Medication List Current Medications: Active Medications Acetaminophen (Tylenol -) 650 mg PO Q4H PRN PRN Reason: FEVER Albuterol Sulfate (Ventolin 0.083% Nebulizer Soln -) 1 amp NEB Q4H PRN PRN Reason: SHORT OF BREATH/WHEEZING Albuterol/Ipratropium (Duoneb -) 1 amp NEB RQID [facility] Last Admin: 07/28/18 11:40 Dose: 1 amp Apixaban (Eliquis -) 5 mg PO BID [facility] Last Admin: 07/28/18 09:54 Dose: 5 mg Atenolol (Tenormin -) 25 mg PO DAILY [facility] Last Admin: 07/28/18 09:53 Dose: 25 mg Budesonide/Formoterol Fumarate (Symbicort 160/4.5mcg -) 2 puff IH BID [facility] Last Admin: 07/28/18 09:58 Dose: 2 puff Cholecalciferol (Vitamin D3 -) 1,000 unit PO DAILY [facility] Last Admin: 07/28/18 09:54 Dose: 1,000 unit Docusate Sodium (Colace -) 100 mg PO DAILY [facility] Last Admin: 07/28/18 09:54 Dose: 100 mg Duloxetine HCl (Cymbalta -) 30 mg PO BID [facility] Last Admin: 07/28/18 09:54 Dose: 30 mg Folic Acid (Folic Acid -) 1 mg PO DAILY [facility] Last Admin: 07/28/18 09:54 Dose: 1 mg Gabapentin (Neurontin -) 300 mg PO TID [facility] Last Admin: 07/28/18 06:00 Dose: 300 mg Hydromorphone HCl (Dilaudid Vial -) 2 mg IVPB Q4H PRN PRN Reason: PAIN LEVEL 7 - 10 Insulin Aspart (Novolog Vial Sliding Scale -) 1 vial SQ ACHS [facility]; Protocol Last Admin: 07/28/18 12:25 Dose: Not Given Losartan Potassium (Cozaar -) 50 mg PO DAILY [facility] Last Admin: 07/28/18 09:55 Dose: 50 mg Montelukast Sodium (Singulair -) 10 mg PO HS [facility] Last Admin: 07/27/18 21:35 Dose: 10 mg Ondansetron HCl (Zofran Injection) 4 mg IVPUSH Q8H PRN PRN Reason: NAUSEA Last Admin: 07/27/18 13:45 Dose: 4 mg Oxycodone HCl (Roxicodone -) 5 mg PO Q2H PRN PRN Reason: PAIN LEVEL 4-6 Oxycodone HCl (Oxycontin -) 40 mg PO BID [facility] Last Admin: 07/28/18 09:54 Dose: 40 mg Pantoprazole Sodium (Protonix -) 20 mg PO BID [facility] Last Admin: 07/28/18 09:53 Dose: 20 mg Sitagliptin Phosphate (Januvia -) 25 mg PO DAILY [facility] Last Admin: 07/28/18 09:55 Dose: 25 mg Tamsulosin HCl (Flomax -) 0.4 mg PO DAILY@0830 [facility] Last Admin: 07/28/18 09:53 Dose: 0.4 mg - Objective Vital Signs: Vital Signs Temperature 98.3 F 07/28/18 10:00 Pulse Rate 90 07/28/18 10:00 Respiratory Rate 18 07/28/18 10:00 Blood Pressure 142/75 07/28/18 10:00 O2 Sat by Pulse Oximetry (%) 96 07/28/18 09:00 Constitutional: Yes: No Distress, Calm Eyes: Yes: Conjunctiva Clear HENT: Yes: Atraumatic Cardiovascular: Yes: Regular Rate and Rhythm Respiratory: Yes: Regular, CTA Bilaterally Gastrointestinal: Yes: Normal Bowel Sounds, Soft Musculoskeletal: Yes: Muscle Weakness Extremities: Yes: WNL Edema: No Neurological: Yes: Alert, Oriented Psychiatric: Yes: Alert, Oriented Labs: CBC, BMP 07/28/18 06:42 07/28/18 06:42 INR, PTT INR 1.44 (0.83-1.09) H 07/26/18 07:25 Microbiology 07/27/18 00:24 Urine - Urine Clean Catch Urine Culture - Final NO GROWTH OBTAINED Problem List - Problems (1) GUCCI (acute kidney injury) Assessment/Plan: -BUN/Cr 32.5/1.1 -Renal US -monitor renal function -renal consult Code(s): N17.9 - ACUTE KIDNEY FAILURE, UNSPECIFIED (2) Afib Assessment/Plan: -Apixiban Code(s): I48.91 - UNSPECIFIED ATRIAL FIBRILLATION Qualifiers: Atrial fibrillation type: paroxysmal Qualified Code(s): I48.0 - Paroxysmal atrial fibrillation (3) COPD exacerbation Assessment/Plan: -Pulm consult -bronchodilators -Solumedrol -keep SpO2 >90% -O2 via NC Code(s): J44.1 - CHRONIC OBSTRUCTIVE PULMONARY DISEASE W (ACUTE) EXACERBATION (4) History of pulmonary embolism Assessment/Plan: -Apixiban Code(s): Z86.711 - PERSONAL HISTORY OF PULMONARY EMBOLISM (5) Sickle cell anemia Assessment/Plan: -pain control -Hematology on board -Hydration -Folic acid Code(s): D57.1 - SICKLE-CELL DISEASE WITHOUT CRISIS Qualifiers: Sickle-cell associated disorders: without crisis Qualified Code(s): D57.1 - Sickle-cell disease without crisis (6) Type 2 diabetes mellitus with hyperosmolarity without nonketotic hyperglycemic-hyperosmolar coma ([facility]) Assessment/Plan: -BGM ACS -Januvia -ISS Code(s): E11.00 - TYPE 2 DIAB W HYPROSM W/O NONKET HYPRGLY-HYPROS COMA ([facility]) (7) HTN (hypertension) Assessment/Plan: -Losartan -low Na diet Code(s): I10 - ESSENTIAL (PRIMARY) HYPERTENSION Qualifiers: Hypertension type: essential hypertension Qualified Code(s): I10 - Essential (primary) hypertension (8) Edema extremities Assessment/Plan: -Lower extremity US neg for dvt -resolved Code(s): R60.0 - LOCALIZED EDEMA Assessment/Plan see problem list DVT ppx
[2018-07-28] MEDS: MONTELUKAST NA 10 MG TABLET PO SCH (21:14)
[2018-07-29] MEDS: GABAPENTIN 300 MG CAPSULE (FP) PO SCH ×3 (06:13→22:14)
[2018-07-29] MEDS: INSULIN SLIDING SCALE (NOVOLOG) 1 VIAL SQ SCH ×4 (06:14→22:21)
[2018-07-29 07:36] LABS: HEMATOCRIT 24.2 % (32.4-45.2); HEMOGLOBIN 8.2 GM/dL (10.7-15.3); MCH 28.8 pg (25.7-33.7); MCHC 33.7 g/dl (32.0-36.0); MEAN CELL VOLUME 85.3 fl (80-96); MEAN PLT VOLUME 8.1 fl (7.5-11.1); PLATELET COUNT 346 K/MM3 (134-434); RBC 2.83 M/mm3 (3.60-5.2); RDW 18.6 % (11.6-15.6); WHITE BLOOD COUNT 18.6 K/mm3 (4.0-10.0)
[2018-07-29] MEDS: ALBUTEROL SO4 2.5/IPRATROPIUM 0.5 INH SOL 3 ML VIAL.NEB. NEB SCH ×4 (07:47→19:45)
[2018-07-29 08:06] LABS: ALBUMIN 2.8 g/dl (3.4-5.0); BILIRUBIN,TOTAL 0.5 mg/dL (0.2-1); CALCIUM 8.9 mg/dL (8.5-10.1); POTASSIUM 3.9 mmol/L (3.5-5.1); TOT PROT 6.3 g/dl (6.4-8.2)
[2018-07-29] MEDS: oxyCODONE HCL 40 MG SUSTAINED ACTING TABLET PO SCH ×2 (11:05→22:14)
[2018-07-29] MEDS: FOLIC ACID 1 MG TABLET (FP) PO SCH (11:05)
[2018-07-29] MEDS: PANTOPRAZOLE 20 MG TABLET (FP) PO SCH ×2 (11:07→22:14)
[2018-07-29] MEDS: APIXABAN 5 MG TABLET PO SCH ×2 (11:07→22:14)
[2018-07-29] MEDS: LOSARTAN POTASSIUM 50 MG TABLET (FP) PO SCH (11:07)
[2018-07-29] MEDS: sitaGLIPtin PHOSPHATE 25 MG TABLET (FP) PO SCH (11:07)
[2018-07-29] MEDS: CHOLECALCIFEROL (VIT D3) 1,000 UNIT (25 MCG) TABLET PO SCH (11:07)
[2018-07-29] MEDS: ATENOLOL 25 MG TABLET (FP) PO SCH (11:08)
[2018-07-29] MEDS: TAMSULOSIN HCL 0.4 MG CAP PO SCH (11:08)
[2018-07-29] MEDS: DOCUSATE SODIUM 100 MG CAPSULE (FP) PO SCH (11:08)
[2018-07-29] MEDS: DULoxetine HCL 30 MG CAPSULE.DR PO SCH ×2 (11:08→22:14)
--- NOTE | 2018-07-29 12:07 | PN ---
Progress Note (short form) - Note Progress Note: Breathing feels overall better. Overall less SOB. No wheezing. Intake & Output 07/26/18 07/27/18 07/28/18 07/29/18 23:59 23:59 23:59 23:59 Intake Total 700 650 Balance 700 650 Weight 175 lb 7 oz 175 lb 172 lb 3.2 oz 170 lb 5 oz Last Vital Signs Temp Pulse Resp BP Pulse Ox 98.3 F 79 20 135/72 96 07/29/18 07:09 07/29/18 07:09 07/29/18 07:09 07/29/18 07:09 07/28/18 21:00 Active Medications Acetaminophen (Tylenol -) 650 mg PO Q4H PRN PRN Reason: FEVER Albuterol Sulfate (Ventolin 0.083% Nebulizer Soln -) 1 amp NEB Q4H PRN PRN Reason: SHORT OF BREATH/WHEEZING Albuterol/Ipratropium (Duoneb -) 1 amp NEB RQID [facility] Last Admin: 07/29/18 11:47 Dose: 1 amp Apixaban (Eliquis -) 5 mg PO BID [facility] Last Admin: 07/29/18 11:07 Dose: 5 mg Atenolol (Tenormin -) 25 mg PO DAILY [facility] Last Admin: 07/29/18 11:08 Dose: 25 mg Budesonide/Formoterol Fumarate (Symbicort 160/4.5mcg -) 2 puff IH BID [facility] Last Admin: 07/28/18 21:18 Dose: 2 puff Cholecalciferol (Vitamin D3 -) 1,000 unit PO DAILY [facility] Last Admin: 07/29/18 11:07 Dose: 1,000 unit Docusate Sodium (Colace -) 100 mg PO DAILY [facility] Last Admin: 07/29/18 11:08 Dose: 100 mg Duloxetine HCl (Cymbalta -) 30 mg PO BID [facility] Last Admin: 07/29/18 11:08 Dose: 30 mg Folic Acid (Folic Acid -) 1 mg PO DAILY [facility] Last Admin: 07/29/18 11:05 Dose: 1 mg Gabapentin (Neurontin -) 300 mg PO TID [facility] Last Admin: 07/29/18 06:13 Dose: 300 mg Insulin Aspart (Novolog Vial Sliding Scale -) 1 vial SQ ACHS [facility]; Protocol Last Admin: 07/29/18 06:14 Dose: Not Given Losartan Potassium (Cozaar -) 50 mg PO DAILY [facility] Last Admin: 07/29/18 11:07 Dose: 50 mg Montelukast Sodium (Singulair -) 10 mg PO HS [facility] Last Admin: 07/28/18 21:14 Dose: 10 mg Ondansetron HCl (Zofran Injection) 4 mg IVPUSH Q8H PRN PRN Reason: NAUSEA Last Admin: 07/27/18 13:45 Dose: 4 mg Oxycodone HCl (Oxycontin -) 40 mg PO BID [facility] Last Admin: 07/29/18 11:05 Dose: 40 mg Pantoprazole Sodium (Protonix -) 20 mg PO BID [facility] Last Admin: 07/29/18 11:07 Dose: 20 mg Sitagliptin Phosphate (Januvia -) 25 mg PO DAILY [facility] Last Admin: 07/29/18 11:07 Dose: 25 mg Tamsulosin HCl (Flomax -) 0.4 mg PO DAILY@0830 [facility] Last Admin: 07/29/18 11:08 Dose: 0.4 mg Gen: NAD Heart: RRR Lung: scattered rhonchi, No wheezes Abd: soft, nontender Ext: no edema Laboratory Results - last 24 hr 07/28/18 07/28/18 07/28/18 12:14 17:43 21:15 WBC RBC Hgb Hct MCV MCH MCHC RDW Plt Count MPV Sodium Potassium Chloride Carbon Dioxide Anion Gap BUN Creatinine Est GFR (CKD-EPI)AfAm Est GFR (CKD-EPI)NonAf POC Glucometer 118 93 109 Random Glucose Calcium Total Bilirubin AST ALT Alkaline Phosphatase Total Protein Albumin 07/29/18 07/29/18 07/29/18 05:50 05:50 06:13 WBC 18.6 H RBC 2.83 L Hgb 8.2 L Hct 24.2 L MCV 85.3 MCH 28.8 MCHC 33.7 RDW 18.6 H Plt Count 346 MPV 8.1 Sodium 140 Potassium 3.9 Chloride 104 Carbon Dioxide 32 Anion Gap 5 L BUN 21.0 H Creatinine 1.0 Est GFR (CKD-EPI)AfAm 64.27 Est GFR (CKD-EPI)NonAf 55.45 POC Glucometer 92 Random Glucose 80 Calcium 8.9 Total Bilirubin 0.5 AST 15 ALT 8 L Alkaline Phosphatase 72 Total Protein 6.3 L Albumin 2.8 L Problem List - Problems (1) COPD exacerbation Code(s): J44.1 - CHRONIC OBSTRUCTIVE PULMONARY DISEASE W (ACUTE) EXACERBATION (2) GUCCI (acute kidney injury) Code(s): N17.9 - ACUTE KIDNEY FAILURE, UNSPECIFIED A/P Acute COPD Exacerbation Chronic Hypoxic Respiratory Failure Acute Kidney Injury Atrial Fibrillation h/o DVT/PE Sickle Cell Disease - Monitor off systemic steroids - BD TX - O2 to keep SpO2 >90% - rate control - continue anticoagulation Dr Almaguer
[2018-07-29] MEDS: BUDESONIDE/FORMETEROL FUMARATE 160/4.5 mcg INHALER IH SCH ×2 (12:19→22:20)
--- NOTE | 2018-07-29 19:22 | DS ---
Physical Examination Vital Signs: Vital Signs Temperature 98 F 07/29/18 10:00 Pulse Rate 86 07/29/18 10:00 Respiratory Rate 18 07/29/18 10:00 Blood Pressure 127/67 07/29/18 10:00 O2 Sat by Pulse Oximetry (%) 96 07/29/18 09:00 Findings/Remarks: Patient is a 73 y/o female with past medical history of sickel cell disease, COPD, peripheral neuropathy, PE/DVT, bronchitis, asthma. Patient presented to ER with complaints of swelling in B/L LE and LLE pain x 6 days. Pain is located in groin area and L buttock. Constitutional: Yes: No Distress, Calm Eyes: Yes: Conjunctiva Clear HENT: Yes: Atraumatic Cardiovascular: Yes: Regular Rate and Rhythm Respiratory: Yes: Regular, CTA Bilaterally Gastrointestinal: Yes: Normal Bowel Sounds, Soft Musculoskeletal: Yes: Muscle Weakness Extremities: Yes: WNL Edema: No Neurological: Yes: Alert, Oriented Psychiatric: Yes: Alert, Oriented Labs: CBC, BMP 07/29/18 05:50 07/29/18 05:50 Discharge Summary Reason For Visit: ACUTE KIDNEY DISEASE/SICKLE CELL/EDEMA Current Active Problems GUCCI (acute kidney injury) (Acute) Edema extremities (Acute) Hospital Course: see progress notes Laboratory Tests 07/26/18 07/26/18 07/26/18 02:20 02:20 02:20 WBC 15.8 H RBC 2.97 L Hgb 8.6 L Hct 25.5 L MCV 85.7 MCH 28.9 MCHC 33.7 RDW 18.3 H Plt Count 312 D MPV 7.9 Absolute Neuts (auto) Neutrophils % Neutrophils % (Manual) Band Neutrophils % Lymphocytes % Lymphocytes % (Manual) Monocytes % Monocytes % (Manual) Eosinophils % Eosinophils % (Manual) Basophils % Basophils % (Manual) Myelocytes % (Man) Promyelocytes % (Man) Blast Cells % (Manual) Nucleated RBC % Metamyelocytes Hypochromia Platelet Estimate Polychromasia Poikilocytosis Anisocytosis Microcytosis Macrocytosis Retic Count 1.55 H D PT with INR INR PTT (Actin FS) Sodium Cancelled Potassium Cancelled Chloride Cancelled Carbon Dioxide Cancelled Anion Gap Cancelled BUN Cancelled Creatinine Cancelled Est GFR (CKD-EPI)AfAm Cancelled Est GFR (CKD-EPI)NonAf Cancelled POC Glucometer Random Glucose Cancelled Calcium Cancelled Phosphorus Magnesium Total Bilirubin Cancelled AST Cancelled ALT Cancelled Alkaline Phosphatase Cancelled LD Total Creatine Kinase Cancelled Creatine Kinase Index CK-MB (CK-2) Troponin I Cancelled B-Natriuretic Peptide Cancelled Total Protein Cancelled Albumin Cancelled Urine Color Urine Appearance Urine pH Ur Specific [place] Urine Protein Urine Glucose (UA) Urine Ketones Urine Blood Urine Nitrite Urine Bilirubin Urine Urobilinogen Ur Leukocyte Esterase Ur Random Sodium Ur Random Potassium Ur Random Chloride 07/26/18 07/26/18 07/26/18 03:30 07:25 07:25 WBC 12.5 H RBC 2.59 L Hgb 7.5 L Hct 21.8 L MCV 84.3 MCH 28.8 MCHC 34.2 RDW 18.7 H Plt Count 314 MPV 7.9 Absolute Neuts (auto) 6.2 Neutrophils % 50.1 Neutrophils % (Manual) Band Neutrophils % Lymphocytes % 39.0 Lymphocytes % (Manual) Monocytes % 5.1 Monocytes % (Manual) Eosinophils % 4.7 H D Eosinophils % (Manual) Basophils % 1.1 Basophils % (Manual) Myelocytes % (Man) Promyelocytes % (Man) Blast Cells % (Manual) Nucleated RBC % 2 H Metamyelocytes Hypochromia Platelet Estimate Polychromasia Poikilocytosis Anisocytosis Microcytosis Macrocytosis Retic Count PT with INR INR PTT (Actin FS) Sodium 137 138 Potassium 3.9 3.7 Chloride 103 104 Carbon Dioxide 27 27 Anion Gap 7 L 7 L BUN 35.6 H 33.2 H Creatinine 2.6 H 2.2 H Est GFR (CKD-EPI)AfAm 20.24 24.78 Est GFR (CKD-EPI)NonAf 17.47 21.38 POC Glucometer Random Glucose 100 91 Calcium 8.0 L 8.0 L Phosphorus 4.0 Magnesium 1.9 Total Bilirubin 0.7 0.8 AST 40 H 37 ALT 8 L 6 L Alkaline Phosphatase 99 101 LD Total 195 Creatine Kinase 1057 H Creatine Kinase Index 0.7 CK-MB (CK-2) 7.9 H Troponin I < 0.02 B-Natriuretic Peptide 252.0 H Total Protein 6.5 6.4 Albumin 2.9 L 2.8 L Urine Color Urine Appearance Urine pH Ur Specific [place] Urine Protein Urine Glucose (UA) Urine Ketones Urine Blood Urine Nitrite Urine Bilirubin Urine Urobilinogen Ur Leukocyte Esterase Ur Random Sodium Ur Random Potassium Ur Random Chloride 07/26/18 07/26/18 07/26/18 07:25 20:47 20:50 WBC RBC Hgb Hct MCV MCH MCHC RDW Plt Count MPV Absolute Neuts (auto) Neutrophils % Neutrophils % (Manual) Band Neutrophils % Lymphocytes % Lymphocytes % (Manual) Monocytes % Monocytes % (Manual) Eosinophils % Eosinophils % (Manual) Basophils % Basophils % (Manual) Myelocytes % (Man) Promyelocytes % (Man) Blast Cells % (Manual) Nucleated RBC % Metamyelocytes Hypochromia Platelet Estimate Polychromasia Poikilocytosis Anisocytosis Microcytosis Macrocytosis Retic Count PT with INR 17.00 H INR 1.44 H PTT (Actin FS) 33.3 Sodium Potassium Chloride Carbon Dioxide Anion Gap BUN Creatinine Est GFR (CKD-EPI)AfAm Est GFR (CKD-EPI)NonAf POC Glucometer 174 Random Glucose Calcium Phosphorus Magnesium Total Bilirubin AST ALT Alkaline Phosphatase LD Total Creatine Kinase Creatine Kinase Index CK-MB (CK-2) Troponin I B-Natriuretic Peptide Total Protein Albumin Urine Color Urine Appearance Urine pH Ur Specific [place] Urine Protein Urine Glucose (UA) Urine Ketones Urine Blood Urine Nitrite Urine Bilirubin Urine Urobilinogen Ur Leukocyte Esterase Ur Random Sodium 34 L Ur Random Potassium 33.8 Ur Random Chloride 60 L 07/26/18 07/27/18 07/27/18 20:50 06:12 07:04 WBC 8.7 RBC 2.90 L Hgb 8.4 L Hct 24.6 L MCV 84.8 MCH 29.0 MCHC 34.3 RDW 18.2 H Plt Count 345 MPV 8.3 Absolute Neuts (auto) Neutrophils % Neutrophils % (Manual) Band Neutrophils % Lymphocytes % Lymphocytes % (Manual) Monocytes % Monocytes % (Manual) Eosinophils % Eosinophils % (Manual) Basophils % Basophils % (Manual) Myelocytes % (Man) Promyelocytes % (Man) Blast Cells % (Manual) Nucleated RBC % Metamyelocytes Hypochromia Platelet Estimate Polychromasia Poikilocytosis Anisocytosis Microcytosis Macrocytosis Retic Count PT with INR INR PTT (Actin FS) Sodium Potassium Chloride Carbon Dioxide Anion Gap BUN Creatinine Est GFR (CKD-EPI)AfAm Est GFR (CKD-EPI)NonAf POC Glucometer 171 Random Glucose Calcium Phosphorus Magnesium Total Bilirubin AST ALT Alkaline Phosphatase LD Total Creatine Kinase Creatine Kinase Index CK-MB (CK-2) Troponin I B-Natriuretic Peptide Total Protein Albumin Urine Color Yellow Urine Appearance Clear Urine pH 5.0 Ur Specific [place] 1.011 Urine Protein Negative Urine Glucose (UA) Negative Urine Ketones Negative Urine Blood Negative Urine Nitrite Negative Urine Bilirubin Negative Urine Urobilinogen 1.0 Ur Leukocyte Esterase Negative Ur Random Sodium Ur Random Potassium Ur Random Chloride 07/27/18 07/27/18 07/27/18 07:04 11:39 16:37 WBC RBC Hgb Hct MCV MCH MCHC RDW Plt Count MPV Absolute Neuts (auto) Neutrophils % Neutrophils % (Manual) Band Neutrophils % Lymphocytes % Lymphocytes % (Manual) Monocytes % Monocytes % (Manual) Eosinophils % Eosinophils % (Manual) Basophils % Basophils % (Manual) Myelocytes % (Man) Promyelocytes % (Man) Blast Cells % (Manual) Nucleated RBC % Metamyelocytes Hypochromia Platelet Estimate Polychromasia Poikilocytosis Anisocytosis Microcytosis Macrocytosis Retic Count PT with INR INR PTT (Actin FS) Sodium 139 Potassium 5.1 Chloride 105 Carbon Dioxide 30 Anion Gap 4 L BUN 26.6 H Creatinine 1.1 Est GFR (CKD-EPI)AfAm 57.28 Est GFR (CKD-EPI)NonAf 49.42 POC Glucometer 125 148 Random Glucose 161 H Calcium 9.0 Phosphorus Magnesium Total Bilirubin 0.6 AST 31 ALT 9 L Alkaline Phosphatase 95 LD Total Creatine Kinase Creatine Kinase Index CK-MB (CK-2) Troponin I B-Natriuretic Peptide Total Protein 7.0 Albumin 2.9 L Urine Color Urine Appearance Urine pH Ur Specific [place] Urine Protein Urine Glucose (UA) Urine Ketones Urine Blood Urine Nitrite Urine Bilirubin Urine Urobilinogen Ur Leukocyte Esterase Ur Random Sodium Ur Random Potassium Ur Random Chloride 07/27/18 07/28/18 07/28/18 21:37 06:00 06:42 WBC 15.2 H RBC 2.91 L Hgb 8.3 L Hct 24.8 L MCV 85.3 MCH 28.6 MCHC 33.5 RDW 18.5 H Plt Count 358 MPV 8.1 Absolute Neuts (auto) Neutrophils % No Result Required. Neutrophils % (Manual) 84.7 H Band Neutrophils % 0.0 Lymphocytes % No Result Required. Lymphocytes % (Manual) 13.3 D Monocytes % Monocytes % (Manual) 2 L Eosinophils % Eosinophils % (Manual) 0.0 Basophils % Basophils % (Manual) 0.0 Myelocytes % (Man) 0 Promyelocytes % (Man) 0 Blast Cells % (Manual) 0 Nucleated RBC % 2 H Metamyelocytes 0 Hypochromia 0 Platelet Estimate Normal Polychromasia 0 Poikilocytosis 0 Anisocytosis 0 Microcytosis 0 Macrocytosis 0 Retic Count PT with INR INR PTT (Actin FS) Sodium Potassium Chloride Carbon Dioxide Anion Gap BUN Creatinine Est GFR (CKD-EPI)AfAm Est GFR (CKD-EPI)NonAf POC Glucometer 161 132 Random Glucose Calcium Phosphorus Magnesium Total Bilirubin AST ALT Alkaline Phosphatase LD Total Creatine Kinase Creatine Kinase Index CK-MB (CK-2) Troponin I B-Natriuretic Peptide Total Protein Albumin Urine Color Urine Appearance Urine pH Ur Specific [place] Urine Protein Urine Glucose (UA) Urine Ketones Urine Blood Urine Nitrite Urine Bilirubin Urine Urobilinogen Ur Leukocyte Esterase Ur Random Sodium Ur Random Potassium Ur Random Chloride 07/28/18 07/28/18 07/28/18 06:42 12:14 17:43 WBC RBC Hgb Hct MCV MCH MCHC RDW Plt Count MPV Absolute Neuts (auto) Neutrophils % Neutrophils % (Manual) Band Neutrophils % Lymphocytes % Lymphocytes % (Manual) Monocytes % Monocytes % (Manual) Eosinophils % Eosinophils % (Manual) Basophils % Basophils % (Manual) Myelocytes % (Man) Promyelocytes % (Man) Blast Cells % (Manual) Nucleated RBC % Metamyelocytes Hypochromia Platelet Estimate Polychromasia Poikilocytosis Anisocytosis Microcytosis Macrocytosis Retic Count PT with INR INR PTT (Actin FS) Sodium 142 Potassium 4.3 Chloride 106 Carbon Dioxide 29 Anion Gap 6 L BUN 32.5 H Creatinine 1.1 Est GFR (CKD-EPI)AfAm 57.28 Est GFR (CKD-EPI)NonAf 49.42 POC Glucometer 118 93 Random Glucose 126 H Calcium 9.0 Phosphorus 2.8 Magnesium 2.2 Total Bilirubin 0.7 AST 19 ALT 9 L Alkaline Phosphatase 82 LD Total Creatine Kinase Creatine Kinase Index CK-MB (CK-2) Troponin I B-Natriuretic Peptide Total Protein 7.2 Albumin 3.1 L Urine Color Urine Appearance Urine pH Ur Specific [place] Urine Protein Urine Glucose (UA) Urine Ketones Urine Blood Urine Nitrite Urine Bilirubin Urine Urobilinogen Ur Leukocyte Esterase Ur Random Sodium Ur Random Potassium Ur Random Chloride 07/28/18 07/29/18 07/29/18 21:15 05:50 05:50 WBC 18.6 H RBC 2.83 L Hgb 8.2 L Hct 24.2 L MCV 85.3 MCH 28.8 MCHC 33.7 RDW 18.6 H Plt Count 346 MPV 8.1 Absolute Neuts (auto) Neutrophils % Neutrophils % (Manual) Band Neutrophils % Lymphocytes % Lymphocytes % (Manual) Monocytes % Monocytes % (Manual) Eosinophils % Eosinophils % (Manual) Basophils % Basophils % (Manual) Myelocytes % (Man) Promyelocytes % (Man) Blast Cells % (Manual) Nucleated RBC % Metamyelocytes Hypochromia Platelet Estimate Polychromasia Poikilocytosis Anisocytosis Microcytosis Macrocytosis Retic Count PT with INR INR PTT (Actin FS) Sodium 140 Potassium 3.9 Chloride 104 Carbon Dioxide 32 Anion Gap 5 L BUN 21.0 H Creatinine 1.0 Est GFR (CKD-EPI)AfAm 64.27 Est GFR (CKD-EPI)NonAf 55.45 POC Glucometer 109 Random Glucose 80 Calcium 8.9 Phosphorus Magnesium Total Bilirubin 0.5 AST 15 ALT 8 L Alkaline Phosphatase 72 LD Total Creatine Kinase Creatine Kinase Index CK-MB (CK-2) Troponin I B-Natriuretic Peptide Total Protein 6.3 L Albumin 2.8 L Urine Color Urine Appearance Urine pH Ur Specific [place] Urine Protein Urine Glucose (UA) Urine Ketones Urine Blood Urine Nitrite Urine Bilirubin Urine Urobilinogen Ur Leukocyte Esterase Ur Random Sodium Ur Random Potassium Ur Random Chloride 07/29/18 06:13 WBC RBC Hgb Hct MCV MCH MCHC RDW Plt Count MPV Absolute Neuts (auto) Neutrophils % Neutrophils % (Manual) Band Neutrophils % Lymphocytes % Lymphocytes % (Manual) Monocytes % Monocytes % (Manual) Eosinophils % Eosinophils % (Manual) Basophils % Basophils % (Manual) Myelocytes % (Man) Promyelocytes % (Man) Blast Cells % (Manual) Nucleated RBC % Metamyelocytes Hypochromia Platelet Estimate Polychromasia Poikilocytosis Anisocytosis Microcytosis Macrocytosis Retic Count PT with INR INR PTT (Actin FS) Sodium Potassium Chloride Carbon Dioxide Anion Gap BUN Creatinine Est GFR (CKD-EPI)AfAm Est GFR (CKD-EPI)NonAf POC Glucometer 92 Random Glucose Calcium Phosphorus Magnesium Total Bilirubin AST ALT Alkaline Phosphatase LD Total Creatine Kinase Creatine Kinase Index CK-MB (CK-2) Troponin I B-Natriuretic Peptide Total Protein Albumin Urine Color Urine Appearance Urine pH Ur Specific [place] Urine Protein Urine Glucose (UA) Urine Ketones Urine Blood Urine Nitrite Urine Bilirubin Urine Urobilinogen Ur Leukocyte Esterase Ur Random Sodium Ur Random Potassium Ur Random Chloride Active Medications Generic Name Dose Route Start Last Admin Trade Name Freq PRN Reason Stop Dose Admin Acetaminophen 650 mg 07/26/18 05:55 Tylenol - PO Q4H PRN FEVER Albuterol Sulfate 1 amp 07/26/18 14:28 Ventolin 0.083% Nebulizer Soln - NEB Q4H PRN SHORT OF BREATH/WHEEZING Albuterol/Ipratropium 1 amp 07/26/18 16:00 07/29/18 16:39 Duoneb - NEB 1 amp RQID SORAYA Administration Apixaban 5 mg 07/26/18 22:00 07/29/18 11:07 Eliquis - PO 5 mg BID SORAYA Administration Atenolol 25 mg 07/27/18 10:00 07/29/18 11:08 Tenormin - PO 25 mg DAILY SORAYA Administration Budesonide/Formoterol Fumarate 2 puff 07/26/18 22:00 07/29/18 12:19 Symbicort 160/4.5mcg - IH 2 puff BID SORAYA Administration Cholecalciferol 1,000 unit 07/27/18 10:00 07/29/18 11:07 Vitamin D3 - PO 1,000 unit DAILY SORAYA Administration Docusate Sodium 100 mg 07/26/18 10:00 07/29/18 11:08 Colace - PO 100 mg DAILY SORAYA Administration Duloxetine HCl 30 mg 07/26/18 10:00 07/29/18 11:08 Cymbalta - PO 30 mg BID SORAYA Administration Folic Acid 1 mg 07/26/18 10:00 07/29/18 11:05 Folic Acid - PO 1 mg DAILY SORAYA Administration Gabapentin 300 mg 07/26/18 06:00 07/29/18 13:28 Neurontin - PO 300 mg TID SORAYA Administration Insulin Aspart 1 vial 07/26/18 22:00 07/29/18 17:14 Novolog Vial Sliding Scale - SQ Not Given ACHS SORAYA Protocol Losartan Potassium 50 mg 07/27/18 10:00 07/29/18 11:07 Cozaar - PO 50 mg DAILY SORAYA Administration Montelukast Sodium 10 mg 07/26/18 22:00 07/28/18 21:14 Singulair - PO 10 mg HS SORAYA Administration Ondansetron HCl 4 mg 07/27/18 13:24 07/27/18 13:45 Zofran Injection IVPUSH 4 mg Q8H PRN Administration NAUSEA Oxycodone HCl 40 mg 07/26/18 10:00 07/29/18 11:05 Oxycontin - PO 40 mg BID SORAYA Administration Pantoprazole Sodium 20 mg 07/26/18 10:00 07/29/18 11:07 Protonix - PO 20 mg BID SORAYA Administration Sitagliptin Phosphate 25 mg 07/27/18 10:00 07/29/18 11:07 Januvia - PO 25 mg DAILY SORAYA Administration Tamsulosin HCl 0.4 mg 07/26/18 08:30 07/29/18 11:08 Flomax - PO 0.4 mg DAILY@0830 SORAYA Administration Microbiology 07/27/18 00:24 Urine - Urine Clean Catch Urine Culture - Final NO GROWTH OBTAINED Condition: Stable - Instructions Diet, Activity, Other Instructions: follow up with pmd in 48 hrs post discharge follow up with Hematology Dr Calderon for SIckle Cell Follow up with Dr Holt Neurology continue with medication as prescribed return to ER if develop respiratory distress, chest pain, severe pain Home PT services Referrals: Elfego Almaguer MD [Staff Physician] - Diann Calderon MD [Staff Physician] - Roshan Holt MD [Staff Physician] - Disposition: VNS/HOME HEALTH CARE - Home Medications Comprehensive Discharge Medication List: Ambulatory Orders Folic Acid - 1 mg PO DAILY 02/11/13 Docusate Sodium [Colace -] 100 mg PO DAILY 04/06/15 Montelukast Na [Singulair -] 10 mg PO HS 04/06/15 Losartan Potassium [Cozaar -] 50 mg PO DAILY 01/21/18 oxyCODONE SR [Oxycontin] 40 mg PO Q12H 05/21/18 Acetaminophen [Tylenol .Regular Strength -] 650 mg PO Q4H PRN tablet 05/26/18 Albuterol 0.083% Nebulizer [place] [Ventolin 0.083% Nebulizer Soln -] 1 amp NEB Q4H PRN amp 05/26/18 Gabapentin [Neurontin -] 300 mg PO BID capsule 06/15/18 Omeprazole 20 mg PO BID 06/27/18 Albuterol 2.5/Ipratropium 0.5 [Duoneb -] 1 amp NEB RQID amp 06/30/18 Apixaban [Eliquis] 5 mg PO BID #30 tablet MDD 2 06/30/18 Atenolol [Tenormin -] 25 mg PO DAILY tablet 06/30/18 Budesonide/Formeterol Fumarate [SYMBICORT 160/4.5mcg -] 1 inh PO BID #1 cannister 06/30/18 Cholecalciferol (Vitamin D3) [Vitamin D3 -] 1,000 unit PO DAILY tab 06/30/18 Cholecalciferol (Vitamin D3) [Vitamin D3 -] 1,000 unit PO DAILY #30 tab Duloxetine HCl [Cymbalta -] 30 mg PO BID #30 capsule. MDD 2 06/30/18 Sitagliptin Phosphate [Januvia -] 25 mg PO DAILY@0700 tab 06/30/18 Sitagliptin Phosphate [Januvia] 25 mg PO DAILY #30 tablet MDD 1 06/30/18 Tamsulosin HCl [Flomax -] 0.4 mg PO DAILY@0830 #30 cap.er.24h MDD 1 06/30/18 Tamsulosin HCl [Flomax] 0.4 mg PO DAILY #30 cap.er.24h MDD 1 06/30/18
--- NOTE | 2018-07-29 20:26 | PN ---
Progress Note (short form) - Note Progress Note: Patient seen in follow up. No new complaints. No significant events overnight. Inpatient Meds reviewed. Current Medications Acetaminophen (Tylenol -) 650 mg PO Q4H PRN PRN Reason: FEVER Albuterol Sulfate (Ventolin 0.083% Nebulizer Soln -) 1 amp NEB Q4H PRN PRN Reason: SHORT OF BREATH/WHEEZING Albuterol/Ipratropium (Duoneb -) 1 amp NEB RQID [facility] Last Admin: 07/29/18 16:39 Dose: 1 amp Apixaban (Eliquis -) 5 mg PO BID [facility] Last Admin: 07/29/18 11:07 Dose: 5 mg Atenolol (Tenormin -) 25 mg PO DAILY [facility] Last Admin: 07/29/18 11:08 Dose: 25 mg Budesonide/Formoterol Fumarate (Symbicort 160/4.5mcg -) 2 puff IH BID [facility] Last Admin: 07/29/18 12:19 Dose: 2 puff Cholecalciferol (Vitamin D3 -) 1,000 unit PO DAILY [facility] Last Admin: 07/29/18 11:07 Dose: 1,000 unit Docusate Sodium (Colace -) 100 mg PO DAILY [facility] Last Admin: 07/29/18 11:08 Dose: 100 mg Duloxetine HCl (Cymbalta -) 30 mg PO BID [facility] Last Admin: 07/29/18 11:08 Dose: 30 mg Folic Acid (Folic Acid -) 1 mg PO DAILY [facility] Last Admin: 07/29/18 11:05 Dose: 1 mg Gabapentin (Neurontin -) 300 mg PO TID [facility] Last Admin: 07/29/18 13:28 Dose: 300 mg Insulin Aspart (Novolog Vial Sliding Scale -) 1 vial SQ ACHS [facility]; Protocol Last Admin: 07/29/18 17:14 Dose: Not Given Losartan Potassium (Cozaar -) 50 mg PO DAILY [facility] Last Admin: 07/29/18 11:07 Dose: 50 mg Montelukast Sodium (Singulair -) 10 mg PO HS [facility] Last Admin: 07/28/18 21:14 Dose: 10 mg Ondansetron HCl (Zofran Injection) 4 mg IVPUSH Q8H PRN PRN Reason: NAUSEA Last Admin: 07/27/18 13:45 Dose: 4 mg Oxycodone HCl (Oxycontin -) 40 mg PO BID [facility] Last Admin: 07/29/18 11:05 Dose: 40 mg Pantoprazole Sodium (Protonix -) 20 mg PO BID [facility] Last Admin: 07/29/18 11:07 Dose: 20 mg Sitagliptin Phosphate (Januvia -) 25 mg PO DAILY [facility] Last Admin: 07/29/18 11:07 Dose: 25 mg Tamsulosin HCl (Flomax -) 0.4 mg PO DAILY@0830 [facility] Last Admin: 07/29/18 11:08 Dose: 0.4 mg On Examination: Last Vital Signs Temp Pulse Resp BP Pulse Ox 98 F 86 18 127/67 96 07/29/18 10:00 07/29/18 10:00 07/29/18 10:00 07/29/18 10:00 07/29/18 09:00 General: In no acute distress, lying comfortably in bed. Extremities: No pallor or icterus. No pedal edema. No palpable lymphadenopathy. CVS: S1, S2, regular, no gallop or murmur. Chest: good air entry bilaterally, clear Abdomen: Non-distended, non-tender, no palpable organomegaly. Neuro: Alert, oriented, non-focal. Labs: CBC, BMP 07/29/18 05:50 07/29/18 05:50 Assessment. Patient with Sickle SC disease, presented with lower extremity pain and swelling , and GUCCI. Resolving spontaneously. Negative LE venous dopplers. Unclear to me what precipitated above event, but as per patient seems to be back at baseline. No active hematological sickle-related issues presently - call with questions.
[2018-07-29] MEDS: MONTELUKAST NA 10 MG TABLET PO SCH (22:14)
[2018-07-30] MEDS: GABAPENTIN 300 MG CAPSULE (FP) PO SCH ×2 (05:46→14:51)
[2018-07-30 06:00] VITALS: TEMP 98.6
[2018-07-30] MEDS: INSULIN SLIDING SCALE (NOVOLOG) 1 VIAL SQ SCH ×2 (06:33→12:16)
[2018-07-30] MEDS: ALBUTEROL SO4 2.5/IPRATROPIUM 0.5 INH SOL 3 ML VIAL.NEB. NEB SCH ×3 (07:35→16:05)
[2018-07-30] MEDS: LOSARTAN POTASSIUM 50 MG TABLET (FP) PO SCH (09:38)
[2018-07-30] MEDS: oxyCODONE HCL 40 MG SUSTAINED ACTING TABLET PO SCH (09:38)
[2018-07-30] MEDS: PANTOPRAZOLE 20 MG TABLET (FP) PO SCH (09:38)
[2018-07-30] MEDS: TAMSULOSIN HCL 0.4 MG CAP PO SCH (09:38)
[2018-07-30] MEDS: ATENOLOL 25 MG TABLET (FP) PO SCH (09:38)
[2018-07-30] MEDS: DOCUSATE SODIUM 100 MG CAPSULE (FP) PO SCH (09:38)
[2018-07-30] MEDS: FOLIC ACID 1 MG TABLET (FP) PO SCH (09:39)
[2018-07-30] MEDS: CHOLECALCIFEROL (VIT D3) 1,000 UNIT (25 MCG) TABLET PO SCH (09:39)
[2018-07-30] MEDS: APIXABAN 5 MG TABLET PO SCH (09:39)
[2018-07-30] MEDS: DULoxetine HCL 30 MG CAPSULE.DR PO SCH (09:39)
[2018-07-30] MEDS: sitaGLIPtin PHOSPHATE 25 MG TABLET (FP) PO SCH (09:40)
[2018-07-30] MEDS: BUDESONIDE/FORMETEROL FUMARATE 160/4.5 mcg INHALER IH SCH (09:42)
[2018-07-30 11:27] VITALS: BP 121/68; PULSE 90
--- NOTE | 2018-07-30 12:02 | PN ---
Progress Note (short form) - Note Progress Note: Breathing feels overall better but feels like she has some thick secretions that she cannot expectorate. Overall less SOB. No wheezing. Intake & Output 07/27/18 07/28/18 07/29/18 07/30/18 23:59 23:59 23:59 23:59 Intake Total 650 550 Balance 650 550 Weight 175 lb 172 lb 3.2 oz 170 lb 5 oz 173 lb 8 oz Last Vital Signs Temp Pulse Resp BP Pulse Ox 98.6 F 90 20 121/68 96 07/30/18 10:00 07/30/18 10:00 07/30/18 10:00 07/30/18 10:00 07/30/18 10:00 Active Medications Acetaminophen (Tylenol -) 650 mg PO Q4H PRN PRN Reason: FEVER Albuterol Sulfate (Ventolin 0.083% Nebulizer Soln -) 1 amp NEB Q4H PRN PRN Reason: SHORT OF BREATH/WHEEZING Albuterol/Ipratropium (Duoneb -) 1 amp NEB RQID [facility] Last Admin: 07/30/18 11:35 Dose: 1 amp Apixaban (Eliquis -) 5 mg PO BID [facility] Last Admin: 07/30/18 09:39 Dose: 5 mg Atenolol (Tenormin -) 25 mg PO DAILY [facility] Last Admin: 07/30/18 09:38 Dose: 25 mg Budesonide/Formoterol Fumarate (Symbicort 160/4.5mcg -) 2 puff IH BID [facility] Last Admin: 07/30/18 09:42 Dose: 2 puff Cholecalciferol (Vitamin D3 -) 1,000 unit PO DAILY [facility] Last Admin: 07/30/18 09:39 Dose: 1,000 unit Docusate Sodium (Colace -) 100 mg PO DAILY [facility] Last Admin: 07/30/18 09:38 Dose: 100 mg Duloxetine HCl (Cymbalta -) 30 mg PO BID [facility] Last Admin: 07/30/18 09:39 Dose: 30 mg Folic Acid (Folic Acid -) 1 mg PO DAILY [facility] Last Admin: 07/30/18 09:39 Dose: 1 mg Gabapentin (Neurontin -) 300 mg PO TID [facility] Last Admin: 07/30/18 05:46 Dose: 300 mg Insulin Aspart (Novolog Vial Sliding Scale -) 1 vial SQ ACHS [facility]; Protocol Last Admin: 07/30/18 06:33 Dose: Not Given Losartan Potassium (Cozaar -) 50 mg PO DAILY [facility] Last Admin: 07/30/18 09:38 Dose: 50 mg Montelukast Sodium (Singulair -) 10 mg PO HS [facility] Last Admin: 07/29/18 22:14 Dose: 10 mg Ondansetron HCl (Zofran Injection) 4 mg IVPUSH Q8H PRN PRN Reason: NAUSEA Last Admin: 07/27/18 13:45 Dose: 4 mg Oxycodone HCl (Oxycontin -) 40 mg PO BID [facility] Last Admin: 07/30/18 09:38 Dose: 40 mg Pantoprazole Sodium (Protonix -) 20 mg PO BID [facility] Last Admin: 07/30/18 09:38 Dose: 20 mg Sitagliptin Phosphate (Januvia -) 25 mg PO DAILY [facility] Last Admin: 07/30/18 09:40 Dose: 25 mg Tamsulosin HCl (Flomax -) 0.4 mg PO DAILY@0830 [facility] Last Admin: 07/30/18 09:38 Dose: 0.4 mg Gen: NAD Heart: RRR Lung: scattered rhonchi, No wheezes Abd: soft, nontender Ext: no edema Laboratory Results - last 24 hr 07/29/18 07/30/18 07/30/18 20:44 05:49 11:40 POC Glucometer 108 102 82 Problem List - Problems (1) COPD exacerbation Code(s): J44.1 - CHRONIC OBSTRUCTIVE PULMONARY DISEASE W (ACUTE) EXACERBATION (2) GUCCI (acute kidney injury) Code(s): N17.9 - ACUTE KIDNEY FAILURE, UNSPECIFIED A/P Acute COPD Exacerbation Chronic Hypoxic Respiratory Failure Acute Kidney Injury Atrial Fibrillation h/o DVT/PE Sickle Cell Disease - Will order Prednisone and Mucinex: which she can be discharged home with. Should continue Symbicort BID and can add Sprivia 1 inhalation daily. - BD TX - O2 to keep SpO2 >90% - rate control - continue anticoagulation - There is no Pulmonary contraindication for D/C home if she feels clinically improved with oral meds Dr Almaguer
[2018-07-30] MEDS ORDERED: predniSONE 20 MG TABLET (UD) PO SCH (12:15)
[2018-07-30] MEDS ORDERED: guaiFENesin 600 MG TABLET.ER (FP) PO SCH (12:15)
--- NOTE | 2018-07-30 13:50 | PN ---
Progress Note (short form) - Note Progress Note: Patient seen in follow up. No new complaints. Ongoing retrosternal discomfort - reports it feels like phlegm she cannot clear No significant events overnight. Inpatient Meds reviewed. Current Medications Generic Name Dose Route Start Last Admin Trade Name Freq PRN Reason Stop Dose Admin Acetaminophen 650 mg 07/26/18 05:55 Tylenol - PO Q4H PRN FEVER Albuterol Sulfate 1 amp 07/26/18 14:28 Ventolin 0.083% Nebulizer Soln - NEB Q4H PRN SHORT OF BREATH/WHEEZING Albuterol/Ipratropium 1 amp 07/26/18 16:00 07/30/18 11:35 Duoneb - NEB 1 amp RQID SORAYA Administration Apixaban 5 mg 07/26/18 22:00 07/30/18 09:39 Eliquis - PO 5 mg BID SORAYA Administration Atenolol 25 mg 07/27/18 10:00 07/30/18 09:38 Tenormin - PO 25 mg DAILY SORAYA Administration Budesonide/Formoterol Fumarate 2 puff 07/26/18 22:00 07/30/18 09:42 Symbicort 160/4.5mcg - IH 2 puff BID SORAYA Administration Cholecalciferol 1,000 unit 07/27/18 10:00 07/30/18 09:39 Vitamin D3 - PO 1,000 unit DAILY SORAYA Administration Docusate Sodium 100 mg 07/26/18 10:00 07/30/18 09:38 Colace - PO 100 mg DAILY SORAYA Administration Duloxetine HCl 30 mg 07/26/18 10:00 07/30/18 09:39 Cymbalta - PO 30 mg BID SORAYA Administration Folic Acid 1 mg 07/26/18 10:00 07/30/18 09:39 Folic Acid - PO 1 mg DAILY SORAYA Administration Gabapentin 300 mg 07/26/18 06:00 07/30/18 05:46 Neurontin - PO 300 mg TID SORAYA Administration Guaifenesin 600 mg 07/30/18 12:15 07/30/18 12:18 Mucinex - PO 600 mg BID SORAYA Administration Insulin Aspart 1 vial 07/26/18 22:00 07/30/18 12:16 Novolog Vial Sliding Scale - SQ Not Given ACHS [facility] Protocol Losartan Potassium 50 mg 07/27/18 10:00 07/30/18 09:38 Cozaar - PO 50 mg DAILY SORAYA Administration Montelukast Sodium 10 mg 07/26/18 22:00 07/29/18 22:14 Singulair - PO 10 mg HS SORAYA Administration Ondansetron HCl 4 mg 07/27/18 13:24 07/27/18 13:45 Zofran Injection IVPUSH 4 mg Q8H PRN Administration NAUSEA Oxycodone HCl 40 mg 07/26/18 10:00 07/30/18 09:38 Oxycontin - PO 40 mg BID SORAYA Administration Pantoprazole Sodium 20 mg 07/26/18 10:00 07/30/18 09:38 Protonix - PO 20 mg BID SORAYA Administration Prednisone 40 mg 07/30/18 12:15 07/30/18 12:18 Deltasone - PO 40 mg DAILY SORAYA Administration Sitagliptin Phosphate 25 mg 07/27/18 10:00 07/30/18 09:40 Januvia - PO 25 mg DAILY SORAYA Administration Tamsulosin HCl 0.4 mg 07/26/18 08:30 07/30/18 09:38 Flomax - PO 0.4 mg DAILY@0830 SORAYA Administration On Examination: Last Vital Signs Temp Pulse Resp BP Pulse Ox 98.6 F 90 20 121/68 96 07/30/18 10:00 07/30/18 10:00 07/30/18 10:00 07/30/18 10:00 07/30/18 10:00 General: In no acute distress, lying comfortably in bed. Extremities: No pallor or icterus. No pedal edema. No palpable lymphadenopathy. CVS: S1, S2, regular, no gallop or murmur. Chest: good air entry bilaterally, clear Abdomen: Non-distended, non-tender, no palpable organomegaly. Neuro: Alert, oriented, non-focal. Labs (yesterday): CBC, BMP 07/29/18 05:50 07/29/18 05:50 Assessment. Patient with Sickle SC disease, presented with lower extremity pain and swelling , and GUCCI. Resolving spontaneously. Negative LE venous dopplers. 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 No active hematological sickle-related issues presently - call with questions. Patient will continue hydroxyurea at home - reports she takes 500 mgs daily - needs to be verified.
== END 2018-07-30 17:18 | disposition home health service (06) | DRG 683 ==
LOC: JER 23:54 → JERBED 07-26 04:42 → J8W 07-26 10:49 → J6S 07-29 20:37
PROVIDERS: ADMIT Internal Medicine; ATTEND Family Medicine
DX: N17.9 Acute kidney failure, unspecified (principal); J44.1 Chronic obstructive pulmonary disease with (acute) exacerbation; I27.82 Chronic pulmonary embolism; J96.11 Chronic respiratory failure with hypoxia; D57.1 Sickle-cell disease without crisis; I48.0 Paroxysmal atrial fibrillation; I10 Essential (primary) hypertension; D64.9 Anemia, unspecified; G62.9 Polyneuropathy, unspecified
CPT/HCPCS: 36415; 71046-TC-FY; 74018-TC-FY; 76775-TC; 80053; 81003; 82436; 82550; 82553; 82962; 83615; 83735; 83880; 84100; 84133; 84300; 84484; 85025; 85027; 85044; 85610; 85730; 87086; 93005; 93010; 93925-TC; 93970-TC; 94640; 99283-25

== ENCOUNTER 2018-12-22 16:51 | Inpatient (IN) | payer OTHER ==
--- NOTE | 2018-12-22 17:09 | PDOC ---
Rapid Medical Evaluation Chief Complaint: Weakness Time Seen by Provider: 12/22/18 17:03 Medical Evaluation: Allergies Allergy/AdvReac Type Severity Reaction Status Date / Time ciprofloxacin [From Cipro] Allergy Itching Verified 12/22/18 17:02 ciprofloxacin HCl Allergy Itching Verified 12/22/18 17:02 [From Cipro] codeine [Codeine] Allergy Verified 12/22/18 17:02 levofloxacin [From Levaquin] Allergy Itching Verified 12/22/18 17:02 Penicillins Allergy Itching Verified 12/22/18 17:02 Sulfa (Sulfonamide Allergy Verified 12/22/18 17:02 Antibiotics) tetanus immune globulin Allergy Verified 12/22/18 17:02 IV DYE Allergy Uncoded 12/22/18 17:02 12/22/18 17:03 c/o back pain radiating down leg and feeling weakness since yesterday. patient alert ox3. patient is sleepy. PE: patient alert ox3 A: back pain p; patient to the ER for further management of care. Discharge Disposition - Diagnosis Back pain Qualifiers: Back pain location: back pain in other location Chronicity: acute Qualified Code(s): M54.9 - Dorsalgia, unspecified - Referrals - Patient Instructions - Post Discharge Activity
--- NOTE | 2018-12-22 17:20 | PDOC ---
History of Present Illness - General Chief Complaint: Weakness Stated Complaint: WEEKNESS Time Seen by Provider: 12/22/18 17:03 - History of Present Illness Initial Comments: 12/22/18 17:21 73 year old female with a significant past medical history with of Sickle Cell Disease, COPD (?not on home O2?, symbicort and spiriva), prior GUCCI, PE/DVT ( apixaban), ?prior nephrolithiasis? chronic lower back pain (on gabapentin 300TID , oxycodone 40mg BID) and Asthma who presents lower back pain radiating to the left groin. Chest pain central nonradiating, stabbing w/ shortness of breath for 2-3 month assocaited with nonproductive cough. She reports that she had a fall yesterday and is complaining occipital head pain. 1 days of dysuria,no hematuria, Patient was seen in 07/2018 where she had similar symptoms of lower back pain travelling to the groin that was evaluated by Dr. 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 No weakness. HEAD, EYES, EARS, NOSE AND THROAT: No change in vision. No ear pain or discharge. No sore throat. CARDIOVASCULAR: + chest pain or shortness of breath RESPIRATORY: + cough, wheezing, or hemoptysis. GASTROINTESTINAL: No nausea, vomiting, diarrhea or constipation. GENITOURINARY: No dysuria, frequency, or change in urination. MUSCULOSKELETAL: + joint or muscle swelling or pain. + neck or back pain. SKIN: No rash PE GENERAL: Awake, alert, and fully oriented, in no acute distress HEAD: No signs of trauma, normocephalic, atraumatic EYES: PERRLA, EOMI, sclera anicteric, conjunctiva clear ENT: oropharynx clear without exudates. Moist mucosa NECK: Normal ROM, supple LUNGS: No distress, speaks full sentences, clear to auscultation bilaterally HEART: Regular rate and rhythm, normal S1 and S2, no murmurs, rubs or gallops, peripheral pulses normal and equal bilaterally. ABDOMEN: Soft, nontender No guarding, no rebound. No masses BACK: L cva tenderness EXTREMITIES : Normal inspection, Normal range of motion, no edema. No clubbing or cyanosis. NEUROLOGICAL: Cranial nerves II through XII grossly intact. Normal speech, no focal sensorimotor deficits SKIN: Warm, Dry, normal turgor, no rashes or lesions noted MDM DDX including but not limited to: pna vs copd exacerb vs chf exacerb r/o fx vs dislocation for fall r/o acs ED Course: CXR with signs of R sided infiltrate cefotaxime and azithro dosed leukocytosis dose 30cc/kg of fluid resusc ekg nsr at 74bpm, no st segment changes labs with GUCCI and elevated bnp will give gentle fluid resus starting with ivf 125ml/hr plan for admission consider acute chest syndrome pain control and abx Kiki Hurt, PGY2 Emergency Medicine 12/22/18 20:14 Past History - Past Medical History Allergies/Adverse Reactions: Allergies Allergy/AdvReac Type Severity Reaction Status Date / Time ciprofloxacin [From Cipro] Allergy Itching Verified 12/22/18 17:02 ciprofloxacin HCl Allergy Itching Verified 12/22/18 17:02 [From Cipro] codeine [Codeine] Allergy Verified 12/22/18 17:02 levofloxacin [From Levaquin] Allergy Itching Verified 12/22/18 17:02 Penicillins Allergy Itching Verified 12/22/18 17:02 Sulfa (Sulfonamide Allergy Verified 12/22/18 17:02 Antibiotics) tetanus immune globulin Allergy Verified 12/22/18 17:02 IV DYE Allergy Uncoded 12/22/18 17:02 Home Medications: Ambulatory Orders Folic Acid - 1 mg PO DAILY 02/11/13 Docusate Sodium [Colace -] 100 mg PO DAILY 04/06/15 Montelukast Na [Singulair -] 10 mg PO HS 04/06/15 Losartan Potassium [Cozaar -] 50 mg PO DAILY 01/21/18 oxyCODONE SR [Oxycontin] 40 mg PO Q12H 05/21/18 Acetaminophen [Tylenol .Regular Strength -] 650 mg PO Q4H PRN tablet 05/26/18 Albuterol 0.083% Nebulizer Marichuy [Ventolin 0.083% Nebulizer Soln -] 1 amp NEB Q4H PRN amp 05/26/18 Gabapentin [Neurontin -] 300 mg PO BID capsule 06/15/18 Omeprazole 20 mg PO BID 06/27/18 Albuterol 2.5/Ipratropium 0.5 [Duoneb -] 1 amp NEB RQID amp 06/30/18 Apixaban [Eliquis] 5 mg PO BID #30 tablet MDD 2 06/30/18 Atenolol [Tenormin -] 25 mg PO DAILY tablet 06/30/18 Budesonide/Formeterol Fumarate [SYMBICORT 160/4.5mcg -] 1 inh PO BID #1 cannister 06/30/18 Cholecalciferol (Vitamin D3) [Vitamin D3 -] 1,000 unit PO DAILY tab 06/30/18 Cholecalciferol (Vitamin D3) [Vitamin D3 -] 1,000 unit PO DAILY #30 tab Duloxetine HCl [Cymbalta -] 30 mg PO BID #30 capsule. [facility] 2 06/30/18 Sitagliptin Phosphate [Januvia -] 25 mg PO DAILY@0700 tab 06/30/18 Sitagliptin Phosphate [Januvia] 25 mg PO DAILY #30 tablet MDD 1 06/30/18 Tamsulosin HCl [Flomax -] 0.4 mg PO DAILY@0830 #30 cap.er.24h MDD 1 06/30/18 Tamsulosin HCl [Flomax] 0.4 mg PO DAILY #30 cap.er.24h MDD 1 06/30/18 Anemia: Yes (SICKLE CELL) Asthma: Yes (BRONCHITIS) Cancer: No Cardiac Disorders: Yes (AF) CVA: No COPD: Yes CHF: No Dementia: No Diabetes: No GI Disorders: No Disorders: No HTN: Yes Hypercholesterolemia: No Liver Disease: No Seizures: No Thyroid Disease: No - Surgical History Abdominal Surgery: Yes Appendectomy: No Cardiac Surgery: No Cholecystectomy: Yes Lung Surgery: No Neurologic Surgery: No Orthopedic Surgery: Yes (nato hip replacement 2005 ? back sx, rot cuff) - Immunization History Immunization Up to Date: Yes (no pna) - Psycho Social/Smoking Cessation Hx Smoking Status: No Smoking History: Current some day smoker Have you smoked in the past 12 months: No Number of Cigarettes Smoked Daily: 0 Information on smoking cessation initiated: No Hx Alcohol Use: No Drug/Substance Use Hx: No Substance Use Type: None Hx Substance Use Treatment: No *Physical Exam - Vital Signs Last Vital Signs Temp Pulse Resp BP Pulse Ox 98.5 F 76 18 150/106 H 95 12/22/18 17:02 12/22/18 17:02 12/22/18 17:02 12/22/18 17:02 12/22/18 17:02 Procedures - Central Line Central Line Lumen: triple Central Line Position: internal jugular (R) Anesthesia: 1% Lidocaine Amount of anesthesia (ccs): 5 Complications: none Post Central Line Insertion: sutured, good blood return, position confirmed w/ CXR ED Treatment Course - LABORATORY CBC & Chemistry Diagram: 12/22/18 18:46 12/22/18 18:46 Discharge - Discharge Information Problems reviewed: Yes Clinical Impression/Diagnosis: Back pain, COPD exacerbation, Sepsis, Pneumonia, Sickle cell crisis, GUCCI ( acute kidney injury), Leukocytosis - Follow up/Referral - Patient Discharge Instructions - Post Discharge Activity
[2018-12-22] MEDS ORDERED: ALBUTEROL SO4 2.5/IPRATROPIUM 0.5 INH SOL 3 ML VIAL.NEB. NEB ONE ×3 (19:02→22:06)
[2018-12-22] MEDS ORDERED: AZITHROMYCIN IVPB 500 MG in DEXTROSE 5%-WATER - 250 ML IVPB ONE (19:02)
[2018-12-22] MEDS ORDERED: ACETAMINOPHEN 1000 MG/100 ML VIAL (NON FORMULARY) IVPB ONE (19:04)
[2018-12-22 19:32] LABS: BASO % 0.2 % (0-2.0); EOS % 1.2 % (0-4.5); HEMATOCRIT 24.7 % (32.4-45.2); HEMOGLOBIN 8.3 GM/dL (10.7-15.3); LYMPH % 26.2 % (8-40); MCHC 33.6 g/dl (32.0-36.0); MEAN CELL VOLUME 83.3 fl (80-96); MEAN PLT VOLUME 8.5 fl (7.5-11.1); MONO % 3.8 % (3.8-10.2); NEUT % 68.6 % (42.8-82.8); PLATELET COUNT 292 K/MM3 (134-434); RBC 2.97 M/mm3 (3.60-5.2); RDW 18.1 % (11.6-15.6); WHITE BLOOD COUNT 21.1 K/mm3 (4.0-10.0)
[2018-12-22] MEDS ORDERED: SODIUM CHLORIDE 2,000 ML IV SCH (19:45)
[2018-12-22 19:55] LABS: ALBUMIN 3.5 g/dl (3.4-5.0); ALK PHOS 110 U/L (45-117); ANION GAP 10 MMOL/L (8-16); BLOOD UREA NITROGEN 67.3 mg/dL (7-18); CALCIUM 8.6 mg/dL (8.5-10.1); CHLORIDE 95 mmol/L (98-107); CO2 26 mmol/L (21-32); CREATININE 5.8 mg/dL (0.55-1.3); GLUCOSE,RANDOM 97 mg/dL (74-106); PHOSPHOROUS 5.4 mg/dL (2.5-4.9); POTASSIUM 4.2 mmol/L (3.5-5.1); SGOT/AST 35 U/L (15-37); SGPT/ALT 6 U/L (13-61); SODIUM 131 mmol/L (136-145); TOT PROT 7.8 g/dl (6.4-8.2)
[2018-12-22 20:02] LABS: INR 1.81 (0.83-1.09); PROTHROMBIN TIME (PATIENT) 21.5 SEC (9.7-13.0)
[2018-12-22 20:05] LABS: ACTIVATED PTT 32.2 SECONDS (25.2-36.5)
--- NOTE | 2018-12-22 20:10 | PDOC ---
Documentation entered by Daniel Petit SCRIBE, acting as scribe for Ktahe Fish MD. Kathe Fish MD: This documentation has been prepared by the Damaso man Daniel, SCRIBE, under my direction and personally reviewed by me in its entirety. I confirm that the documentation accurately reflects all work, treatment, procedures, and medical decision making performed by me. Attending Attestation - Resident Resident Name: Kiki Hurt - ED Attending Attestation I have performed the following: I have examined & evaluated the patient, The case was reviewed & discussed with the resident, I agree w/resident's findings & plan, Exceptions are as noted - HPI HPI: 12/22/18 20:04 73-year-old female history of sickle cell COPD hypertension prior PE DVT on Eliquis CHF here today complaining of fall and generalized weakness. Patient states she had a fall yesterday while trying to get to the bathroom is unsure of the exact mechanism unsure if she hit her head or not today is complaining of upper back pain as well as anterior left-sided groin and hip pain. States that normally she ablates without a walker however today she has been unable to ambulate since her fall due to pain denies any nausea or vomiting no abdominal pain no knee or ankle pain states she her back pain is somewhat chronic for which she is already on OxyContin and oxycodone but this anterior groin and left hip pain is new states she is also had a cough over the last few days with wheezing denies any chills however was told that she may have a low-grade fever - Physicial Exam PE: 12/22/18 20:06 Patient is awake alert head is atraumatic lungs are with expiratory wheezes and crackles worse at the right base compared to the left heart is regular with any murmurs rubs or gallops abdomen is soft nontender there is left-sided anterior groin pain there is pain with rotation of the left hip on internal rotation and flexion the knee and ankle are nontender full range of motion. There is no midline spinal tenderness but there is spinal tenderness at the thoracic region patient is awake alert and oriented x3 moves all 4 extremities bilateral lower extremity [place] edema skin is intact no rash - Medical Decision Making 12/22/18 20:08 73-year-old female history of CHF COPD PE DVT sickle cell on Eliquis here status post fall with left anterior groin and hip pain and thoracic back pain. Also congested lungs on my exam differential includes pneumonia CHF COPD exacerbation any other subsequent infection such as UTI precipitating falls pubic rami or left hip injury or fracture or thoracic spine fracture. Plan chest x-ray labs CT head and cervical spine UA CBC CMP Patient's chest x-ray shows concerns for possible pneumonia no significant chest pain or symptoms to suggest acute chest syndrome patient's O2 sats are good we will treat with antibiotics ceftriaxone azithromycin for healthcare associated pneumonia will admit the patient to the hospital 12/22/18 22:31 pt found to be in acute renal failure creatinine 5.7. given hydration. will require dangelo for hydration, monitoring of urine output. given duonebs for wheezing. abx. Heart Score/ECG Review #1 General ECG Interpretation: Sinus Rhythm, Normal Rate (62), Normal Intervals, No acute ischemic changes
[2018-12-22] MEDS ORDERED: CEFOTAXIME SODIUM 500 MG VIAL (RESTRICTED TO ID) IVPUSH ONE (20:12)
[2018-12-22] MEDS ORDERED: ACETAMINOPHEN INJECTION 100 ML IVPB ONE (20:48)
[2018-12-22] MEDS ORDERED: AZITHROMYCIN IVPB 500 MG/250 ML BAG IVPB ONE (20:49)
[2018-12-22 20:56] LABS: ANISOCYTOSIS 2+
[2018-12-22 20:57] LABS: HELMET CELLS FEW; PLATELET ESTIMATE ADEQUATE; SICKELED CELLS FEW; TARGET CELLS 2+
--- NOTE | 2018-12-22 21:11 | HP ---
Admitting History and Physical - Primary Care Physician PCP: Dr. Mathur - Admission Chief Complaint: back pain left groin, weakness, + cough History of Present Illness: 73 year old female with a significant past medical history with of Sickle Cell Disease, COPD/Asthma, h/o of PE/DVT (apixaban), ?prior nephrolithiasis, DM type2 , and chronic lower back pain arrived to Emergency room for lower back pain radiating to the left groin, chest pain non-radiating stabbing with shortness of breath for 2-3 month associated with non-productive cough. Patient also report s/p fall yesterday and is complaining occipital head pain. Member also noted with weakness and complain of dysuria. No acute dizziness, fever, chills, N/V, constipation, diarrhea. History Source: Patient, Family Member Limitations to Obtaining History: No Limitations - Past Medical History Cardiovascular: Yes: Deep Vein Thrombosis, HTN Pulmonary: Yes: Asthma, COPD, Pulmonary Embolus Gastrointestinal: Yes: Constipation, GERD Renal/: Yes: Renal Inusuff, Neurogenic Bladder Heme/Onc: Yes: Sickle Cell Disease Psych: Yes: Addictions, Other (Pain meds- methadone, oxycodone ) Musculoskeletal: Yes: Chronic low back pain Endocrine: Yes: Diabetes Mellitus - Past Surgical History Past Surgical History: Yes: Cholecystectomy, Hysterectomy, Joint Replacement - Smoking History Smoking history: Current some day smoker Have you smoked in the past 12 months: No Aproximately how many cigarettes per day: 0 - Alcohol/Substance Use Hx Alcohol Use: No History of Substance Use: reports: Prescription - Social History Usual Living Arrangement: Yes: With Spouse ADL: Independent History of Recent Travel: No Home Medications - Allergies Allergies/Adverse Reactions: Allergies Allergy/AdvReac Type Severity Reaction Status Date / Time ciprofloxacin [From Cipro] Allergy Itching Verified 12/22/18 17:02 ciprofloxacin HCl Allergy Itching Verified 12/22/18 17:02 [From Cipro] codeine [Codeine] Allergy Verified 12/22/18 17:02 levofloxacin [From Levaquin] Allergy Itching Verified 12/22/18 17:02 Penicillins Allergy Itching Verified 12/22/18 17:02 Sulfa (Sulfonamide Allergy Verified 12/22/18 17:02 Antibiotics) tetanus immune globulin Allergy Verified 12/22/18 17:02 IV DYE Allergy Uncoded 12/22/18 17:02 - Home Medications Home Medications: Ambulatory Orders Folic Acid - 1 mg PO DAILY 02/11/13 Docusate Sodium [Colace -] 100 mg PO DAILY 04/06/15 Montelukast Na [Singulair -] 10 mg PO HS 04/06/15 Losartan Potassium [Cozaar -] 50 mg PO DAILY 01/21/18 oxyCODONE SR [Oxycontin] 40 mg PO Q12H 05/21/18 Acetaminophen [Tylenol .Regular Strength -] 650 mg PO Q4H PRN tablet 05/26/18 Albuterol 0.083% Nebulizer Marichuy [Ventolin 0.083% Nebulizer Soln -] 1 amp NEB Q4H PRN amp 05/26/18 Gabapentin [Neurontin -] 300 mg PO BID capsule 06/15/18 Omeprazole 20 mg PO BID 06/27/18 Albuterol 2.5/Ipratropium 0.5 [Duoneb -] 1 amp NEB RQID amp 06/30/18 Apixaban [Eliquis] 5 mg PO BID #30 tablet MDD 2 06/30/18 Atenolol [Tenormin -] 25 mg PO DAILY tablet 06/30/18 Budesonide/Formeterol Fumarate [SYMBICORT 160/4.5mcg -] 1 inh PO BID #1 cannister 06/30/18 Cholecalciferol (Vitamin D3) [Vitamin D3 -] 1,000 unit PO DAILY tab 06/30/18 Cholecalciferol (Vitamin D3) [Vitamin D3 -] 1,000 unit PO DAILY #30 tab Duloxetine HCl [Cymbalta -] 30 mg PO BID #30 capsule. MDD 2 06/30/18 Sitagliptin Phosphate [Januvia -] 25 mg PO DAILY@0700 tab 06/30/18 Sitagliptin Phosphate [Januvia] 25 mg PO DAILY #30 tablet MDD 1 06/30/18 Tamsulosin HCl [Flomax -] 0.4 mg PO DAILY@0830 #30 cap.er.24h MDD 1 06/30/18 Tamsulosin HCl [Flomax] 0.4 mg PO DAILY #30 cap.er.24h MDD 1 06/30/18 Family Medical History Family Hx Cancer: Father (Lung Ca) Family Hx Cardiac Disorders: Mother (HTN) Family Hx Diabetes: Mother Family Hx Nuerologic Problems: Mother (stroke) Review of Systems - Review of Systems Constitutional: reports: Weakness Eyes: reports: No Symptoms HENT: reports: No Symptoms Neck: reports: No Symptoms Cardiovascular: reports: Chest Pain, Shortness of Breath Respiratory: reports: Cough, SOB, SOB on Exertion, Wheezing Gastrointestinal: reports: No Symptoms Genitourinary: reports: Pain Musculoskeletal: reports: Back Pain Integumentary: reports: No Symptoms Neurological: reports: Headache Endocrine: reports: No Symptoms Hematology/Lymphatic: reports: No Symptoms Psychiatric: reports: No Symptoms Physical Examination Vital Signs: Vital Signs Temperature 98.5 F 12/22/18 17:02 Pulse Rate 76 12/22/18 17:02 Respiratory Rate 18 12/22/18 17:02 Blood Pressure 150/106 H 12/22/18 17:02 O2 Sat by Pulse Oximetry (%) 95 12/22/18 17:02 Constitutional: Yes: Well Nourished, Calm Eyes: Yes: Conjunctiva Clear, EOM Intact HENT: Yes: Atraumatic, Normocephalic Neck: Yes: Supple, Trachea Midline Cardiovascular: Yes: Regular Rate and Rhythm, S1, S2 Respiratory: Yes: Regular, On Nasal O2, Rales Gastrointestinal: Yes: Normal Bowel Sounds, Soft Renal/: Yes: CVA Tenderness - Left Musculoskeletal: Yes: Back Pain Edema: No Peripheral Pulses WNL: Yes Neurological: Yes: Alert, Oriented Labs: CBC, BMP 12/22/18 18:46 12/22/18 18:46 Imaging - Results Chest X-ray: Report Reviewed (Lower right side infiltrate) Cat Scan: Report Reviewed (CT head: no acute pathology) Ultrasound: Report Reviewed (B/L doppler LE negative for DVT) EKG: Report Reviewed (NSR @ 74 BPM, no s/t changes) Problem List - Problems (1) Sepsis Code(s): A41.9 - SEPSIS, UNSPECIFIED ORGANISM (2) Pneumonia Code(s): J18.9 - PNEUMONIA, UNSPECIFIED ORGANISM (3) GUCCI (acute kidney injury) Code(s): N17.9 - ACUTE KIDNEY FAILURE, UNSPECIFIED (4) Status post fall Code(s): Z91.81 - HISTORY OF FALLING (5) Chronic back pain Code(s): M54.9 - DORSALGIA, UNSPECIFIED; G89.29 - OTHER CHRONIC PAIN (6) GERD (gastroesophageal reflux disease) Code(s): K21.9 - GASTRO-ESOPHAGEAL REFLUX DISEASE WITHOUT ESOPHAGITIS (7) Constipation Code(s): K59.00 - CONSTIPATION, UNSPECIFIED (8) COPD (chronic obstructive pulmonary disease) Code(s): J44.9 - CHRONIC OBSTRUCTIVE PULMONARY DISEASE, UNSPECIFIED (9) Diabetes Code(s): E11.9 - TYPE 2 DIABETES MELLITUS WITHOUT COMPLICATIONS Qualifiers: Diabetes mellitus type: type 2 (10) History of pulmonary embolism Code(s): Z86.711 - PERSONAL HISTORY OF PULMONARY EMBOLISM (11) Sickle cell anemia Code(s): D57.1 - SICKLE-CELL DISEASE WITHOUT CRISIS Qualifiers: Sickle-cell associated disorders: without crisis Qualified Code(s): D57.1 - Sickle-cell disease without crisis (12) HTN (hypertension) Code(s): I10 - ESSENTIAL (PRIMARY) HYPERTENSION Qualifiers: Hypertension type: essential hypertension Qualified Code(s): I10 - Essential (primary) hypertension Assessment/Plan 73 year old female with a significant past medical history with of Sickle Cell Disease, COPD/Asthma, h/o of PE/DVT (apixaban), ?prior nephrolithiasis, DM type2 , and chronic lower back pain arrived to Emergency room for lower back pain radiating to the left groin, chest pain non-radiating stabbing with shortness of breath for 2-3 month associated with non-productive cough. Patient also report s/p fall yesterday and is complaining occipital head pain. Member also noted with weakness and complain of dysuria. Will get ICU consult for severe hypotensive 2/2 to sepsis not responding to fluids, discussed case with ICU resident will evaluate and admit. # sepsis secondary to pneumonia -WBC: 21.1, lactic acid: -Chest Xray image- right side infiltrate - Azithromycin IV given in ED, will give Vancomycin 1 g IV -will continue Azithromycin QD, and Vancomycin 1g pending ID follow in AM -continue with IVF -nebs -o2 via NC -tylenol q 4 hours #Hypotensive 2/2 due to sepsis - given 500ml bolus x1, despite IVF and bolus BP still 72/59 lethargy - remain on IVF - Hold antihypertensive meds - monitor BP closely #Acute on Chronic GUCCI - CT abd: no evidence of nephrolithiasis or hydronephrosis -NS 1L given in ED -Will continue gentle IVF for now -Consider nephrology consult -Repeat BMP in am # S/p fall # chronic back pain - CT head: negative - CT Cervical spine: no fx, small C2-C3 and C3-C4 disc herniation, and C4-5 central canal stenosis - pain management - safety/fall precaution #COPD (chronic obstructive pulmonary disease) -Duonebs standing -Continue Symbicort - continue with singular -O2 via NC # Pulmonary embolism during treatment with long-term anticoagulation therapy - Doppler LE : no DVT -Continue Eliquis # Sickle cell anemia Retic 0.83 -Continue Folic Acid # HTN (hypertension) -Monitor BP -Hold Losartan and Atenolol # GERD - continue with omeprazole BID # constipation - continue with Colace # DM - fsbs qdAC - continue with Januvia QD FEN PO Fluids as tolerated Low Na Diet DVT ppx OOB SCDs Continue Eliquis Dispo:ICU Visit type - Emergency Visit Emergency Visit: Yes ED Registration Date: 12/22/18 Care time: The patient presented to the Emergency Department on the above date and was hospitalized for further evaluation of their emergent condition. - New Patient This patient is new to me today: Yes Date on this admission: 12/23/18 - Critical Care Critical Care patient: Yes Total Critical Care Time (in minutes): 32 Critical Care Statement: The care of this patient involved high complexity decision making to prevent further life threatening deterioration of the patient 's condition and/or to evaluate & treat vital organ system(s) failure or risk of failure.
[2018-12-22] MEDS: SODIUM CHLORIDE 1,000 ML IV SCH (21:17)
[2018-12-22] MEDS: ALBUTEROL SO4 2.5/IPRATROPIUM 0.5 INH SOL 3 ML VIAL.NEB. NEB SCH ×2 (22:17→22:55)
[2018-12-22] MEDS ORDERED: ACETAMINOPHEN 325 MG TABLET (FP) PO PRN (22:25)
[2018-12-22] MEDS ORDERED: ALBUTEROL SO4 0.083% IH SOL 2.5 MG/3 ML VIAL.NEB. NEB PRN (22:25)
[2018-12-22] MEDS ORDERED: oxyCODONE HCL 40 MG SUSTAINED ACTING TABLET PO SCH (22:30)
[2018-12-22] MEDS ORDERED: SODIUM CHLORIDE 0.9% 500 ML INFUS.BAG IV ONE (23:04)
[2018-12-22] MEDS ORDERED: ALBUTEROL SO4 0.083% IH SOL 2.5 MG/3 ML VIAL.NEB. NEB ONE (23:19)
[2018-12-22] MEDS: ALBUTEROL SO4 0.083% IH SOL 2.5 MG/3 ML VIAL.NEB. NEB SCH (23:26)
[2018-12-23] MEDS ORDERED: VANCOMYCIN 1,000 MG in DEXTROSE 5%-WATER - 250 ML IVPB ONE (00:24)
--- NOTE | 2018-12-23 00:30 | CONSULT ---
Consultation: REQUESTING PROVIDER: Dr. Samir Joyner CONSULT REQUEST: We have been asked to medically evaluate this patient for ICU admission HISTORY OF PRESENT ILLNESS: Patient is a 73 year old female with history of COPD on home oxygen, Asthma, PE/ DVT (on Apixaban), prior nephrolithiasis, diabetes mellitus type 2, sickle cell disease, chronic back pain presents with complaint of shortness of breath, with associated chest pain. Symptoms intermittently ongoing for past several months, associated with nonproductive cough. Of note, patient had experienced fall; CT head in ED negative for acute intracranial pathology. In ED patient received two liters of IV normal saline, however despite fluid recusitation remained hypotensive. Right sided triple lumen catheter was placed in ED, and patient started on Norepinepherine for pressure support. REVIEW OF SYSTEMS: CONSTITUTIONAL: Admits: generalized weakness. Absent: fever, chills, diaphoresis, malaise, loss of appetite, weight change HEENT: Absent: rhinorrhea, nasal congestion, throat pain, throat swelling, difficulty swallowing, mouth swelling, ear pain, eye pain, visual changes CARDIOVASCULAR: Admits: chest pain, syncopal episode. Absent: palpitations, irregular heart rate , lightheadedness, peripheral edema RESPIRATORY: Admits: cough, shortness of breath. Absent: dyspnea with exertion, orthopnea, wheezing, stridor, hemoptysis GASTROINTESTINAL: Absent: abdominal pain, abdominal distension, nausea, vomiting, diarrhea, constipation, melena, hematochezia GENITOURINARY: Absent: dysuria, frequency, urgency, hesitancy, hematuria, flank pain, genital pain MUSCULOSKELETAL: Admits: back pain. Absent: myalgia, arthralgia, joint swelling,neck pain SKIN: Absent: rash, itching, pallor HEMATOLOGIC/IMMUNOLOGIC: Absent: easy bleeding, easy bruising, lymphadenopathy, frequent infections ENDOCRINE: Absent: unexplained weight gain, unexplained weight loss, heat intolerance, cold intolerance NEUROLOGIC: Absent: headache, focal weakness or paresthesias, dizziness, unsteady gait, seizure, mental status changes, bladder or bowel incontinence PSYCHIATRIC: Absent: anxiety, depression, suicidal or homicidal ideation, hallucinations. PHYSICAL EXAMINATION Vital Signs - 24 hr 12/22/18 17:02 Temperature 98.5 F Pulse Rate 76 Respiratory 18 Rate Blood Pressure 150/106 H O2 Sat by Pulse 95 Oximetry (%) GENERAL: The patient is awake, alert, and fully oriented, in no acute distress. HEAD: Normocephalic, atraumatic. EYES: PERRL, extraocular movements intact, sclera anicteric, conjunctiva clear. ENT: Oropharynx clear, without erythema or exudates. Moist mucous membranes. NECK: Trachea midline, full range of motion. Supple without lymphadenopathy. LUNGS: Breath sounds equal, clear to auscultation bilaterally, no wheezes, no crackles. No accessory muscle use. HEART: Regular rate and rhythm, S1, S2 without murmur, rub or gallop. ABDOMEN: Soft, nondistended, nontender to light and deep palpation x4 quadrants , no rebound tenderness, no guarding. Normoactive bowel sounds x4 quadrants. no hepatosplenomegaly, no masses. EXTREMITIES: 2+ radial, dorsalis pedis pulses bilaterally. Warm, well-perfused. No lower extremity edema bilaterally. NEUROLOGICAL: Cranial nerves II through XII grossly intact. Normal speech. No gross focal deficits. PSYCH: Normal mood, normal affect upon my encounter. SKIN: Warm, dry. Laboratory Results - last 24 hr 12/22/18 12/22/18 12/22/18 18:46 18:46 18:46 WBC 21.1 H RBC 2.97 L Hgb 8.3 L Hct 24.7 L MCV 83.3 MCH 28.0 MCHC 33.6 RDW 18.1 H Plt Count 292 MPV 8.5 Absolute Neuts (auto) 14.5 H Neutrophils % 68.6 D Neutrophils % (Manual) 66.0 Band Neutrophils % 7.0 Lymphocytes % 26.2 D Lymphocytes % (Manual) 17.0 D Monocytes % 3.8 Monocytes % (Manual) 3 L Eosinophils % 1.2 Eosinophils % (Manual) 4.0 D Basophils % 0.2 Basophils % (Manual) 0.0 Nucleated RBC % 1 H Hypochromia 2+ Platelet Estimate Adequate Poikilocytosis 2+ Anisocytosis 2+ Sickle Cells Few Target Cells 2+ Helmet Cells Few Fragmented RBCs 1+ Schistocytes Few Retic Count PT with INR INR PTT (Actin FS) Sodium 131 L Potassium 4.2 Chloride 95 L Carbon Dioxide 26 Anion Gap 10 BUN 67.3 H Creatinine 5.8 H Est GFR (CKD-EPI)AfAm 7.67 Est GFR (CKD-EPI)NonAf 6.62 Random Glucose 97 Calcium 8.6 Phosphorus 5.4 H Magnesium 2.0 Total Bilirubin 1.0 AST 35 ALT 6 L Alkaline Phosphatase 110 Troponin I < 0.02 B-Natriuretic Peptide Total Protein 7.8 Albumin 3.5 Blood Type O POSITIVE Antibody Screen Negative 12/22/18 12/22/18 12/22/18 18:46 18:46 18:46 WBC RBC Hgb Hct MCV MCH MCHC RDW Plt Count MPV Absolute Neuts (auto) Neutrophils % Neutrophils % (Manual) Band Neutrophils % Lymphocytes % Lymphocytes % (Manual) Monocytes % Monocytes % (Manual) Eosinophils % Eosinophils % (Manual) Basophils % Basophils % (Manual) Nucleated RBC % Hypochromia Platelet Estimate Poikilocytosis Anisocytosis Sickle Cells Target Cells Helmet Cells Fragmented RBCs Schistocytes Retic Count 0.83 D PT with INR 21.50 H INR 1.81 H PTT (Actin FS) 32.2 Sodium Potassium Chloride Carbon Dioxide Anion Gap BUN Creatinine Est GFR (CKD-EPI)AfAm Est GFR (CKD-EPI)NonAf Random Glucose Calcium Phosphorus Magnesium Total Bilirubin AST ALT Alkaline Phosphatase Troponin I B-Natriuretic Peptide 3982.8 H Total Protein Albumin Blood Type Antibody Screen Active Medications Generic Name Dose Route Start Last Admin Trade Name Freq PRN Reason Stop Dose Admin Acetaminophen 650 mg 12/22/18 22:25 Tylenol - PO Q4H PRN PAIN OR FEVER Albuterol Sulfate 1 amp 12/22/18 22:39 12/22/18 23:26 Ventolin 0.083% Nebulizer Soln - NEB 1 amp RQID SORAYA Administration Apixaban 5 mg 12/23/18 10:00 Eliquis - PO BID [facility] Atenolol 25 mg 12/23/18 10:00 Tenormin - PO DAILY [facility] Budesonide/Formoterol Fumarate 1 puff 12/23/18 10:00 Symbicort 160/4.5mcg - IH BID SORAYA Docusate Sodium 200 mg 12/23/18 22:00 Colace - PO HS SORAYA Duloxetine HCl 30 mg 12/23/18 10:00 Cymbalta - PO BID SORAYA Folic Acid 1 mg 12/23/18 10:00 Folic Acid - PO DAILY SORAYA Gabapentin 300 mg 12/23/18 10:00 Neurontin - PO BID [facility] Sodium Chloride 1,000 mls @ 125 mls/hr 12/22/18 20:01 12/22/18 21:17 Normal Saline - IV 125 mls/hr ASDIR SORAYA Administration Azithromycin 500 mg/ Dextrose 250 mls @ 250 mls/hr 12/23/18 10:00 IVPB DAILY SORAYA Ipratropium [place] 1 amp 12/23/18 08:00 Atrovent 0.02% Nebulizer - NEB RQID SORAYA Montelukast Sodium 10 mg 12/23/18 22:00 Singulair - PO HS SORAYA Pantoprazole Sodium 20 mg 12/23/18 10:00 Protonix - PO BID SORAYA Sitagliptin Phosphate 25 mg 12/23/18 07:00 Januvia - PO DAILY@0700 [facility] Tamsulosin HCl 0.4 mg 12/23/18 08:30 Flomax - PO DAILY@0830 [facility] ASSESSMENT/PLAN: Septic shock, likely secondary to pneumonia GUCCI History of PE, DVT Hypertension COPD on home oxygen Asthma Diabetes mellitus Sickle cell disease S/P syncopal episode Neurologic -Currently, patient is awake, alert, oriented. No acute distress. -CT head reveals negative acute intracranial pathology. -Continue home Duloxetine Cardiac -EKG -Troponin 0.02. Will follow. -Holding home antihypertensives in setting -Cardiac monitoring while in ICU Pulmonary -Currently patient saturating well on 2L nasal canula -DuoNebs QID standing -Continue home Symbicort -Continue home Singulair -Continue home Atrovent Gastrointestinal -Patient denies abdominal pain, nausea, vomiting, melena, hematochezia -Sodium controlled diet. Infectious disease -Chest radiograph reveals right sided infiltratem, concerning for pneumonia -Patient received 2L IV normal saline bolus in ED, however blood pressures remain tenuous with MAP approx 65. -Will continue IV fluid hydration -Levophed to maintain MAP > 65 -Patient received Vancomycin, Ceftriaxone, Azithromycin in ED. -Follow blood cultures, urine cultures. STAT urinalysis. -ID recommendations Dr. Wynne appreciated. Nephrologic -GUCCI likely pre-renal etiology, secondary to septic shock -Continue IV fluid hydration -Renal US, urine electrolytes -Nephrology consult (Dr. Flores) appreciated. -Follow Bun/ Cr Endocrine -Holding home antihypertensives -Insulin sliding scale ACHS -Fingerstick blood glucose ACHS Hematologic -History of sickle cell disease; hemoglobin at baseline from prior admission. -Follow Hb/ Hct -Continue home Eliquis FEN -IV normal saline at 75mL/ hour -Follow BMP -Sodium controlled diet Prophylaxis -Continue home Julia Disposition: We will continue to follow the patient. Thank you for this consultative opportunity. Visit type - Emergency Visit Emergency Visit: Yes ED Registration Date: 12/22/18 Care time: The patient presented to the Emergency Department on the above date and was hospitalized for further evaluation of their emergent condition. - New Patient This patient is new to me today: Yes Date on this admission: 12/23/18 - Critical Care Critical Care patient: Yes Total Critical Care Time (in minutes): 36 Critical Care Statement: The care of this patient involved high complexity decision making to prevent further life threatening deterioration of the patient 's condition and/or to evaluate & treat vital organ system(s) failure or risk of failure. ATTENDING PHYSICIAN STATEMENT I saw and evaluated the patient. I reviewed the resident's note and discussed the case with the resident. I agree with the resident's findings and plan as documented. SUBJECTIVE: OBJECTIVE: ASSESSMENT AND PLAN:
[2018-12-23] MEDS ORDERED: VANCOMYCIN 1 GRAM (PRE-DOCKED) 1,000 MG/250 ML BAG IVPB ONE (01:26)
[2018-12-23] MEDS ORDERED: SODIUM CHLORIDE 0.9% 500 ML INFUS.BAG IV ONE (01:37)
[2018-12-23] MEDS: NOREPINEPHRINE BITARTRATE 4,000 MCG in DEXTROSE 5%-WATER - 496 ML IV SCH (02:45)
[2018-12-23 02:48] LABS: EPI CELLS 3.3 /HPF (0-5/HPF); HYALINE CASTS 56 /lpf (0-8); URINE APPEARANCE CLOUDY; URINE BACTERIA 0.3 /hpf (NEGATIVE); URINE BILIRUBIN NEGATIVE (NEGATIVE); URINE COLOR DK YELLOW; URINE GLUCOSE (UA) NEGATIVE (NEGATIVE); URINE KETONE TRACE (NEGATIVE); URINE LEUK ESTERASE TRACE (NEGATIVE); URINE NITRITE NEGATIVE (NEGATIVE); URINE PROTEIN TRACE (NEGATIVE); URINE RBC 1 /hpf (0-4); URINE WBC 2 /hpf (0-5)
[2018-12-23] MEDS: INSULIN SLIDING SCALE (NOVOLOG) 1 VIAL SQ SCH ×4 (06:46→22:26)
[2018-12-23 06:51] LABS: HEMATOCRIT 20.6 % (32.4-45.2); HEMOGLOBIN 7.1 GM/dL (10.7-15.3); MCH 28.2 pg (25.7-33.7); MCHC 34.3 g/dl (32.0-36.0); MEAN CELL VOLUME 82.2 fl (80-96); MEAN PLT VOLUME 8.2 fl (7.5-11.1); PLATELET COUNT 252 K/MM3 (134-434); RBC 2.51 M/mm3 (3.60-5.2); WHITE BLOOD COUNT 16.6 K/mm3 (4.0-10.0)
[2018-12-23] MEDS ORDERED: INSULIN SLIDING SCALE (NOVOLOG) 1 VIAL SQ SCH (07:00)
[2018-12-23 07:11] LABS: BLOOD UREA NITROGEN 66.6 mg/dL (7-18); CALCIUM 7.5 mg/dL (8.5-10.1); CREATININE 4.9 mg/dL (0.55-1.3); POTASSIUM 3.8 mmol/L (3.5-5.1)
[2018-12-23] MEDS: ALBUTEROL SO4 0.083% IH SOL 2.5 MG/3 ML VIAL.NEB. NEB SCH ×4 (08:00→21:41)
[2018-12-23] MEDS: IPRATROPIUM BR 0.02% 0.5 MG/2.5 ML VIAL.NEB. NEB SCH ×4 (08:00→20:41)
--- NOTE | 2018-12-23 08:46 | PN ---
Progress Note (short form) - Note Progress Note: ID consult dictated impl/reccd very poor historian 73 yo female with SCD , copd on home oxygen, history prior PE/DVT admitted from home with cough and s/p fall with left groin/hip pain no fevers she went out to dinner on Tuesday night and ate spaghetti and veal- started vomiting after that she is not sure she has urinated in the last few days also has a cough-intermittent for last few days no fevers no diarrhea, in fact constipation allergies noted, tolerates cephalosporins no recent admissions in ed noted to have leukocytosis and wheezing, and hypotension she is in renal failure as well did not respond to ivf and started on levophed sepsis? cannot r/o pneumonia with cough/wheezing renal failure - SCD multiple antibiotic allergies cultures influenza screen legionella antigen cefepime/zithromax adjusted for ARF vancomycin trough in am Problem List - Problems (1) Sepsis Code(s): A41.9 - SEPSIS, UNSPECIFIED ORGANISM (2) Acute renal failure Code(s): N17.9 - ACUTE KIDNEY FAILURE, UNSPECIFIED (3) Sickle cell anemia Code(s): D57.1 - SICKLE-CELL DISEASE WITHOUT CRISIS Qualifiers: Sickle-cell associated disorders: without crisis Qualified Code(s): D57.1 - Sickle-cell disease without crisis (4) Allergy to multiple antibiotics Code(s): Z88.1 - ALLERGY STATUS TO OTHER ANTIBIOTIC AGENTS STATUS
[2018-12-23] MEDS ORDERED: NOREPINEPHRINE BITARTRATE 4 MG/4 ML ML IV ONE ×2 (08:51→19:54)
[2018-12-23] MEDS: TAMSULOSIN HCL 0.4 MG CAP PO SCH (09:00)
[2018-12-23] MEDS ORDERED: CEFEPIME HCL/D5W 2 GM/50 ML BAG IVPB SCH (09:00)
[2018-12-23] MEDS ORDERED: ONDANSETRON 4 MG/2 ML VIAL IVPB PRN (09:15)
[2018-12-23] MEDS ORDERED: CEFEPIME 2 GM in DEXTROSE 5%-WATER 100 ML IVPB SCH (09:15)
[2018-12-23] MEDS ORDERED: LACTATED RINGERS SOLUTION 1000 ML INFUS.BAG IV ONE (09:45)
--- NOTE | 2018-12-23 09:58 | CONSULT ---
Consult Consult Specialty:: Pulm/CCM Reason for Consultation:: SOB, cough, shock - History of Present Illness Chief Complaint: weakness, cough History of Present Illness: This is a 73 yo woman w/ COPD on LTOT (2-3lpm), asthma, PE on apixaban, DM and sickle cell disease who presented w/ progressive cough, SOB, weakness s/p fall prompting ED visit. She states she was in her USOH but notes a long standing chronic cough that has become more productive. She denies fever, and diarrhea but had decreased u/o. 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 In the ED patient was hypotensive (SBP 80s) non responsive to IVF and was placed on NE via newly placed TLC. On CXR she had and elevated right hemidiaphragm and possible RLL consolidation c/f CAP. She was started on ceftriaxone, azithro and vanco. ID was consulted. Labs notable for leukocytosis (21.1), anemia (hgb 8.3) , hyponatremia (Na 130) and GUCCI (SCr 5.8, urine Na 19). On exam she had wheezing. CT head was done w/o acute pathology. CTAP w/o evidence of renal obstruction but showed constipation. - History Source History Provided By: Patient, Medical Record Limitations to Obtaining History: Poor Historian - Past Medical History Cardio/Vascular: Yes: Deep Vein Thrombosis, HTN Pulmonary: Yes: Asthma, COPD, Pulmonary Embolus Gastrointestinal: Yes: Constipation, GERD Renal/: Yes: Renal Inusuff, Neurogenic Bladder Psych: Yes: Addictions, Other (Pain meds- methadone, oxycodone ) Musculoskeletal: Yes: Chronic low back pain Endocrine: Yes: Diabetes Mellitus - Past Surgical History Past Surgical History: Yes: Cholecystectomy, Hysterectomy, Joint Replacement - Alcohol/Substance Use Hx Alcohol Use: No History of Substance Use: reports: Prescription - Smoking History Smoking history: Current some day smoker Have you smoked in the past 12 months: No Aproximately how many cigarettes per day: 0 - Social History Usual Living Arrangement: With Spouse (in apartment with 3-4 steps to enter) ADL: Independent History of Recent Travel: No Home Medications - Allergies Allergies/Adverse Reactions: Allergies Allergy/AdvReac Type Severity Reaction Status Date / Time ciprofloxacin [From Cipro] Allergy Itching Verified 12/22/18 17:02 ciprofloxacin HCl Allergy Itching Verified 12/22/18 17:02 [From Cipro] codeine [Codeine] Allergy Verified 12/22/18 17:02 levofloxacin [From Levaquin] Allergy Itching Verified 12/22/18 17:02 Penicillins Allergy Itching Verified 12/22/18 17:02 Sulfa (Sulfonamide Allergy Verified 12/22/18 17:02 Antibiotics) tetanus immune globulin Allergy Verified 12/22/18 17:02 IV DYE Allergy Uncoded 12/22/18 17:02 - Home Medications Home Medications: Ambulatory Orders Folic Acid - 1 mg PO DAILY 02/11/13 Docusate Sodium [Colace -] 100 mg PO DAILY 04/06/15 Montelukast Na [Singulair -] 10 mg PO HS 04/06/15 Losartan Potassium [Cozaar -] 50 mg PO DAILY 01/21/18 oxyCODONE SR [Oxycontin] 40 mg PO Q12H 05/21/18 Acetaminophen [Tylenol .Regular Strength -] 650 mg PO Q4H PRN tablet 05/26/18 Albuterol 0.083% Nebulizer [place] [Ventolin 0.083% Nebulizer Soln -] 1 amp NEB Q4H PRN amp 05/26/18 Gabapentin [Neurontin -] 300 mg PO BID capsule 06/15/18 Omeprazole 20 mg PO BID 06/27/18 Albuterol 2.5/Ipratropium 0.5 [Duoneb -] 1 amp NEB RQID amp 06/30/18 Apixaban [Eliquis] 5 mg PO BID #30 tablet MDD 2 06/30/18 Atenolol [Tenormin -] 25 mg PO DAILY tablet 06/30/18 Budesonide/Formeterol Fumarate [SYMBICORT 160/4.5mcg -] 1 inh PO BID #1 cannister 06/30/18 Cholecalciferol (Vitamin D3) [Vitamin D3 -] 1,000 unit PO DAILY tab 06/30/18 Cholecalciferol (Vitamin D3) [Vitamin D3 -] 1,000 unit PO DAILY #30 tab Duloxetine HCl [Cymbalta -] 30 mg PO BID #30 capsule. MDD 2 06/30/18 Sitagliptin Phosphate [Januvia -] 25 mg PO DAILY@0700 tab 06/30/18 Sitagliptin Phosphate [Januvia] 25 mg PO DAILY #30 tablet MDD 1 06/30/18 Tamsulosin HCl [Flomax -] 0.4 mg PO DAILY@0830 #30 cap.er.24h MDD 1 06/30/18 Tamsulosin HCl [Flomax] 0.4 mg PO DAILY #30 cap.er.24h MDD 1 06/30/18 Family Medical History Family History: Unremarkable Review of Systems - Review of Systems Respiratory: reports: Cough, Exercise Intolerance Gastrointestinal: reports: Constipation Genitourinary: reports: Other (decreased urination) Musculoskeletal: reports: Muscle Weakness Neurological: reports: No Symptoms Physical Exam Vital Signs: Vital Signs Temperature 97.8 F 12/23/18 04:04 Pulse Rate 64 12/23/18 08:00 Respiratory Rate 12 12/23/18 08:00 Blood Pressure 108/53 L 12/23/18 08:00 O2 Sat by Pulse Oximetry (%) 95 12/23/18 08:26 Current Medications Acetaminophen (Tylenol -) 650 mg PO Q4H PRN PRN Reason: PAIN OR FEVER Albuterol Sulfate (Ventolin 0.083% Nebulizer Soln -) 1 amp NEB RQID [facility] Last Admin: 12/23/18 08:00 Dose: Not Given Apixaban (Eliquis -) 5 mg PO BID [facility] Atenolol (Tenormin -) 25 mg PO DAILY [facility] Budesonide/Formoterol Fumarate (Symbicort 160/4.5mcg -) 1 puff IH BID [facility] Docusate Sodium (Colace -) 200 mg PO HS [facility] Duloxetine HCl (Cymbalta -) 30 mg PO BID [facility] Folic Acid (Folic Acid -) 1 mg PO DAILY [facility] Gabapentin (Neurontin -) 300 mg PO BID [facility] Sodium Chloride (Normal Saline -) 1,000 mls @ 125 mls/hr IV ASDIR [facility] Last Admin: 12/22/18 21:17 Dose: 125 mls/hr Azithromycin (Zithromax 500mg Ivpb (Pre-Docked)) 500 mg in 250 mls @ 250 mls/ hr IVPB DAILY SORAYA Norepinephrine Bitartrate 4, (000 mcg/ Dextrose) 500 mls @ 37.5 mls/hr IV TITR SORAYA; Protocol Last Titration: 12/23/18 04:00 Dose: 15 mcg/min, 112.5 mls/hr Cefepime HCl 2 gm/ Dextrose 100 mls @ 200 mls/hr IVPB DAILY [facility]; Protocol Insulin Aspart (Novolog Vial Sliding Scale -) 1 vial SQ ACHS [facility]; Protocol Last Admin: 12/23/18 06:46 Dose: 2 units Ipratropium Zirconia (Atrovent 0.02% Nebulizer -) 1 amp NEB RQID [facility] Last Admin: 12/23/18 08:00 Dose: Not Given Lactated Ringer's (Lactated Ringers Solution) 2,000 ml IV ONCE ONE Stop: 12/23/18 09:46 Montelukast Sodium (Singulair -) 10 mg PO HS [facility] Ondansetron HCl (Zofran Injection) 8 mg IVPB Q6H PRN PRN Reason: NAUSEA Pantoprazole Sodium (Protonix -) 20 mg PO BID [facility] Polyethylene Glycol (Miralax (For Daily Use) -) 17 gm PO DAILY [facility] Prednisone (Deltasone -) 40 mg PO DAILY [facility] Stop: 12/27/18 10:01 Senna (Senna -) 1 tab PO BID [facility] Tamsulosin HCl (Flomax -) 0.4 mg PO DAILY@0830 [facility] Last Admin: 12/23/18 09:00 Dose: 0.4 mg Constitutional: Yes: Calm, Mild Distress Eyes: Yes: EOM Intact, PERRL Cardiovascular: Yes: Regular Rate and Rhythm, S1, S2 Respiratory: Yes: On Nasal O2, Rhonchi, Wheezes Gastrointestinal: Yes: Normal Bowel Sounds, Soft, Abdomen, Obese Renal/: Yes: Oliguria Extremities: Yes: WNL Edema: LLE: Trace, RLE: Trace Integumentary: Yes: WNL Neurological: Yes: Alert, Oriented Labs: CBC, BMP 12/23/18 06:00 12/23/18 06:00 Imaging - Results X-ray: Report Reviewed, Image Reviewed Cat Scan: Report Reviewed, Image Reviewed Problem List - Problems (1) Constipation Code(s): K59.00 - CONSTIPATION, UNSPECIFIED (2) GUCCI (acute kidney injury) Code(s): N17.9 - ACUTE KIDNEY FAILURE, UNSPECIFIED (3) Anemia Code(s): D64.9 - ANEMIA, UNSPECIFIED (4) COPD exacerbation Code(s): J44.1 - CHRONIC OBSTRUCTIVE PULMONARY DISEASE W (ACUTE) EXACERBATION (5) Pneumonia Code(s): J18.9 - PNEUMONIA, UNSPECIFIED ORGANISM Assessment/Plan 73 yo woman w/ COPD on LTOT, asthma, PE on apixaban, DM and SCD who presented w / SOB, weakness s/p fall, and productive cough c/f CAP, COPD exacerbation c/b septic shock and GUCCI most likely prerenal 2/2 dehydration. -Pressors for MAP 65-75 -O2 for sat >89% -cont bronchodilators -Prednisone 40mg daily for COPD exacerbation for 5day course -Renal consulted -renal dose all medications -cont IV fluids -renal u/s ordered -aggressive bowel regimen -ABX for CAP per ID (ceftriaxone and azithro) -Normal transfusion thresholds (Hgb >7.0, Plt >10) -cont AC for h/o DVT/PE -Glucose control Boerem ACNP Pulm/CCM CCT: 40m
[2018-12-23] MEDS ORDERED: CEFTRIAXONE 1 GM in DEXTROSE 5%-WATER - 50 ML IVPB SCH (10:00)
[2018-12-23] MEDS: ATENOLOL 25 MG TABLET (FP) PO SCH (10:03)
[2018-12-23] MEDS ORDERED: PT OWN MED DRAWER 7, Y5N ONE (10:21)
[2018-12-23] MEDS: DULoxetine HCL 30 MG CAPSULE.DR PO SCH ×2 (10:25→22:24)
[2018-12-23] MEDS: FOLIC ACID 1 MG TABLET (FP) PO SCH (10:25)
[2018-12-23] MEDS: predniSONE 20 MG TABLET (UD) PO SCH (10:25)
[2018-12-23] MEDS: APIXABAN 5 MG TABLET PO SCH ×2 (10:25→22:24)
[2018-12-23] MEDS: SENNOSIDES 8.6MG TABLET (FP) PO SCH ×2 (10:26→22:24)
[2018-12-23] MEDS: AZITHROMYCIN IVPB 500 MG/250 ML BAG IVPB SCH (10:26)
[2018-12-23] MEDS: GABAPENTIN 300 MG CAPSULE (FP) PO SCH ×2 (10:26→22:24)
[2018-12-23] MEDS: PANTOPRAZOLE 20 MG TABLET (FP) PO SCH ×2 (10:26→22:24)
[2018-12-23] MEDS: CEFEPIME 2 GM in DEXTROSE 5%-WATER 100 ML IVPB SCH (10:26)
[2018-12-23] MEDS: POLYETHYLENE GLYCOL 3350 119 GM BTL PO SCH (10:28)
--- NOTE | 2018-12-23 10:47 | CONS ---
INFECTIOUS DISEASE CONSULTATION DATE OF CONSULTATION: DATE OF DICTATION: 12/23/2018 This is a 73-year-old woman who was admitted overnight to the ICU. She has a past medical history of sickle cell disease. She presents after she had a fall at home. She reports on Tuesday she went out to an [employer] restaurant, ate a lot of veal and spaghetti. She had a lot of vomiting that night and has had intermittent vomiting since then. She is really not sure the last time she urinated. She notes, as well, she has had a nonproductive cough with wheezing for the last several days, as well as she sustained a fall at home and is complaining of left hip and groin pain. She has a history of sickle cell disease, a history of COPD, and is on home oxygen. She was found to have an elevated white count in the emergency room with hypotension. She was given 2 L of fluid with no response, had a central line placed, and is on pressors in the ICU. As well, she was noted to be in renal failure. She denies any abdominal pain. She notes chest discomfort with cough. She notes wheezing. She has had no fevers or chills. She has no diarrhea or abdominal pain. Reports the pain in her left groin has lessened. She denies any sick contacts. She lives with her . There is no history of any recent antibiotics that she recalls. PAST MEDICAL HISTORY: Notable for hypertension, COPD. She has a history of PE, DVT in the past. She is followed at the sickle cell clinic at [facility]. She has chronic low back pain. She is on home oxygen 3.5 L. SURGICAL HISTORY: Notable for cholecystectomy, hysterectomy. She has had bilateral hip replacements, lumbar spine surgery, and bilateral rotator cuff surgery. There is no history of any recent travel. She has had no sick contacts. She does not recall being recently hospitalized. ALLERGIES: She is allergic to CIPROFLOXACIN, LEVOFLOXACIN, PENICILLIN, SULFA, TETANUS IMMUNE GLOBULIN, and IV DYE. She does not know the nature of any of her allergies. In fact, she is quite a poor historian. MEDICATIONS AT HOME: Include OxyContin, Flomax, Januvia, Singulair, omeprazole, Cozaar, Neurontin, folic acid, Cymbalta, Colace, vitamin D, Symbicort, Tenormin, Eliquis, DuoNebs, Ventolin, and Tylenol. REVIEW OF SYSTEMS: Notable for the intermittent vomiting. She has no abdominal pain. She complains of constipation, and as stated before, in the ER, she received 2 L of fluid with persistent low blood pressure, as low as 76/68, and she was started on Levophed. She is currently awake and alert in the ICU. She has had no fever since arrival to the hospital. PHYSICAL EXAMINATION: Vital Signs: Current temperature is 97.8, pulse of 64, blood pressure 108/53. Respiratory rate is 12. She is saturating 95% on 3 L. She tells me she uses 3.5 L of oxygen at home. HEENT: She is normocephalic. Her eyes are anicteric. She has no thrush. She has no pharyngitis. Neck: Supple. She has a central line in her right side of her neck. Lungs: Diffuse rhonchi and wheezes. Heart: Regular rate and rhythm. Abdomen: Soft, nontender. Musculoskeletal: She has some left hip/groin discomfort, and her extremities are without edema. LABORATORY DATA: Labs are notable for a white count of 16.6. Her baseline is 12-15. She was admitted with a white count of 21. Hemoglobin is 7.1. Platelets are 252. Her BUN was 67 and creatinine 5.8 on admission. This morning, her creatinine is 4.9. Her baseline is normal, 1. Her liver function tests are normal. Her urinalysis had trace leukocyte esterase, 2 white cells, no blood. Urine and blood cultures are negative. She has had multiple imaging studies including a head CT and a cervical spine CT. No evidence of any fracture or acute changes. She had a CAT scan of her abdomen and pelvis that was notable for no hydronephrosis. It was difficult to evaluate the urinary bladder. There was no evidence of a spleen. She is status post cholecystectomy. She had some nonspecific fluid distention in her abdomen and she had bibasilar bronchiectasis and she has an elevated right hemidiaphragm on chest x-ray. She has some lumbar disk herniation as well as a T9 chronic vertebral compression fracture as well. In summary, this is a 73-year-old woman with sickle cell disease, admitted with left groin pain since Tuesday. Of note, she has had vomiting as well as poor urine output. She is now hypotensive, requiring pressors. Concerns would be for sepsis, cannot rule out pneumonia. Clinically, she is coughing and wheezing. She is in acute renal failure in the setting of sickle cell disease and multiple nonspecific antibiotic allergies that she is very vague about. Overall, she is a very poor historian. Would follow up her cultures, influenza screen her, legionella. We will check an RSV antigen as well. We will check a legionella urinary antigen. She was given vancomycin and azithromycin in the ER. We will add cefepime adjusted for her renal failure until cultures are back. We will follow up her vancomycin level in the a.m., as well as cultures. Sickle cell disease. Acute renal failure. She is being hydrated and has good urine output at this time. Multiple ANTIBIOTIC allergies. IDANIA JIMENEZ M.D. [id number]
[2018-12-23] MEDS: BUDESONIDE/FORMETEROL FUMARATE 160/4.5 mcg INHALER IH SCH ×2 (11:25→22:25)
--- NOTE | 2018-12-23 13:35 | CONSULT ---
Consult Consult Specialty:: Nephrology Reason for Consultation:: GUCCI - History of Present Illness Chief Complaint: cough History of Present Illness: Pt is a 73 year old female with pmhx of copd, asthma, nephrolithiasis, gucci in the past, DM, and sickle cell disease who presents to the ER with cough. She also had back pain radiating to the groin. She also had a fall. I was called to evaluate her for GUCCI. She follows with Dr Wilkinson. She denies dysuria or hematuria. She denies fevers or chills. She denies nsaid use. - History Source History Provided By: Patient, Medical Record - Past Medical History Cardio/Vascular: Yes: Deep Vein Thrombosis, HTN Pulmonary: Yes: Asthma, COPD, Pulmonary Embolus Gastrointestinal: Yes: Constipation, GERD Renal/: Yes: Renal Inusuff, Neurogenic Bladder Psych: Yes: Addictions, Other (Pain meds- methadone, oxycodone ) Musculoskeletal: Yes: Chronic low back pain Endocrine: Yes: Diabetes Mellitus - Past Surgical History Past Surgical History: Yes: Cholecystectomy, Hysterectomy, Joint Replacement - Alcohol/Substance Use Hx Alcohol Use: No History of Substance Use: reports: Prescription - Smoking History Smoking history: Current some day smoker Have you smoked in the past 12 months: No Aproximately how many cigarettes per day: 0 - Social History Usual Living Arrangement: With Spouse (in apartment with 3-4 steps to enter) ADL: Independent History of Recent Travel: No Home Medications - Allergies Allergies/Adverse Reactions: Allergies Allergy/AdvReac Type Severity Reaction Status Date / Time ciprofloxacin [From Cipro] Allergy Itching Verified 12/22/18 17:02 ciprofloxacin HCl Allergy Itching Verified 12/22/18 17:02 [From Cipro] codeine [Codeine] Allergy Verified 12/22/18 17:02 levofloxacin [From Levaquin] Allergy Itching Verified 12/22/18 17:02 Penicillins Allergy Itching Verified 12/22/18 17:02 Sulfa (Sulfonamide Allergy Verified 12/22/18 17:02 Antibiotics) tetanus immune globulin Allergy Verified 12/22/18 17:02 IV DYE Allergy Uncoded 12/22/18 17:02 - Home Medications Home Medications: Ambulatory Orders Folic Acid - 1 mg PO DAILY 02/11/13 Docusate Sodium [Colace -] 100 mg PO DAILY 04/06/15 Montelukast Na [Singulair -] 10 mg PO HS 04/06/15 Losartan Potassium [Cozaar -] 50 mg PO DAILY 01/21/18 oxyCODONE SR [Oxycontin] 40 mg PO Q12H 05/21/18 Acetaminophen [Tylenol .Regular Strength -] 650 mg PO Q4H PRN tablet 05/26/18 Albuterol 0.083% Nebulizer [place] [Ventolin 0.083% Nebulizer Soln -] 1 amp NEB Q4H PRN amp 05/26/18 Gabapentin [Neurontin -] 300 mg PO BID capsule 06/15/18 Omeprazole 20 mg PO BID 06/27/18 Albuterol 2.5/Ipratropium 0.5 [Duoneb -] 1 amp NEB RQID amp 06/30/18 Apixaban [Eliquis] 5 mg PO BID #30 tablet MDD 2 06/30/18 Atenolol [Tenormin -] 25 mg PO DAILY tablet 06/30/18 Budesonide/Formeterol Fumarate [SYMBICORT 160/4.5mcg -] 1 inh PO BID #1 cannister 06/30/18 Cholecalciferol (Vitamin D3) [Vitamin D3 -] 1,000 unit PO DAILY tab 06/30/18 Cholecalciferol (Vitamin D3) [Vitamin D3 -] 1,000 unit PO DAILY #30 tab Duloxetine HCl [Cymbalta -] 30 mg PO BID #30 capsule. MDD 2 06/30/18 Sitagliptin Phosphate [Januvia -] 25 mg PO DAILY@0700 tab 06/30/18 Sitagliptin Phosphate [Januvia] 25 mg PO DAILY #30 tablet MDD 1 06/30/18 Tamsulosin HCl [Flomax -] 0.4 mg PO DAILY@0830 #30 cap.er.24h MDD 1 06/30/18 Tamsulosin HCl [Flomax] 0.4 mg PO DAILY #30 cap.er.24h MDD 1 06/30/18 Family Medical History Family History: Denies Review of Systems - Review of Systems Constitutional: reports: Malaise Eyes: reports: No Symptoms, Floaters Neck: reports: No Symptoms Cardiovascular: reports: Shortness of Breath Respiratory: reports: Cough, SOB, SOB on Exertion Genitourinary: reports: No Symptoms Musculoskeletal: reports: No Symptoms Neurological: reports: No Symptoms Endocrine: reports: No Symptoms Hematology/Lymphatic: reports: No Symptoms Psychiatric: reports: No Symptoms Physical Exam Vital Signs: Vital Signs Temperature 98.2 F 12/23/18 10:00 Pulse Rate 69 12/23/18 12:00 Respiratory Rate 12 12/23/18 12:00 Blood Pressure 127/79 12/23/18 12:00 O2 Sat by Pulse Oximetry (%) 95 12/23/18 08:26 Constitutional: Yes: Calm Eyes: Yes: Conjunctiva Clear HENT: Yes: Atraumatic Cardiovascular: Yes: S1, S2 Respiratory: Yes: On Nasal O2, Wheezes Gastrointestinal: Yes: Soft Renal/: Yes: [place] Present Musculoskeletal: Yes: WNL Edema: No Neurological: Yes: Oriented Psychiatric: Yes: Oriented Labs: CBC, BMP 12/23/18 06:00 12/23/18 06:00 Laboratory Tests 07/29/18 12/22/18 12/23/18 05:50 18:46 02:05 Sodium Potassium BUN Creatinine 1.0 5.8 H Urine Protein Trace Urine Blood Negative Ur Random Creatinine Ur Random Sodium Influenza A (Rapid) Influenza B (Rapid) 12/23/18 12/23/18 12/23/18 06:00 07:00 07:00 Sodium 130 L Potassium 3.8 BUN 66.6 H Creatinine 4.9 H Urine Protein Urine Blood Ur Random Creatinine 36.0 Ur Random Sodium 19 L Influenza A (Rapid) Influenza B (Rapid) 12/23/18 10:45 Sodium Potassium BUN Creatinine Urine Protein Urine Blood Ur Random Creatinine Ur Random Sodium Influenza A (Rapid) Negative Influenza B (Rapid) Negative Imaging - Results Chest X-ray: Report Reviewed Problem List - Problems (1) GUCCI (acute kidney injury) Code(s): N17.9 - ACUTE KIDNEY FAILURE, UNSPECIFIED Assessment/Plan Current Medications Generic Name Dose Route Start Last Admin Trade Name Freq PRN Reason Stop Dose Admin Acetaminophen 650 mg 12/22/18 22:25 Tylenol - PO Q4H PRN PAIN OR FEVER Albuterol Sulfate 1 amp 12/22/18 22:39 12/23/18 12:28 Ventolin 0.083% Nebulizer Soln - NEB 1 amp RQID SORAYA Administration Apixaban 5 mg 12/23/18 10:00 12/23/18 10:25 Eliquis - PO 5 mg BID SORAYA Administration Atenolol 25 mg 12/23/18 10:00 12/23/18 10:03 Tenormin - PO Not Given DAILY SORAYA Budesonide/Formoterol Fumarate 1 puff 12/23/18 10:00 12/23/18 11:25 Symbicort 160/4.5mcg - IH 1 puff BID SORAYA Administration Docusate Sodium 200 mg 12/23/18 22:00 Colace - PO HS SORAYA Duloxetine HCl 30 mg 12/23/18 10:00 12/23/18 10:25 Cymbalta - PO 30 mg BID SORAYA Administration Folic Acid 1 mg 12/23/18 10:00 12/23/18 10:25 Folic Acid - PO 1 mg DAILY SORAYA Administration Gabapentin 300 mg 12/23/18 10:00 12/23/18 10:26 Neurontin - PO 300 mg BID SORAYA Administration Sodium Chloride 1,000 mls @ 125 mls/hr 12/22/18 20:01 12/22/18 21:17 Normal Saline - IV 125 mls/hr ASDIR SORAYA Administration Azithromycin 500 mg in 250 mls @ 250 mls/hr 12/23/18 10:00 12/23/18 10:26 Zithromax 500mg Ivpb (Pre-Docked) IVPB 250 mls/hr DAILY SORAYA Administration Norepinephrine Bitartrate 4, 500 mls @ 37.5 mls/hr 12/23/18 01:45 12/23/18 12 :00 000 mcg/ Dextrose IV 8 mcg/min TITR SORAYA 60 mls/hr Titration Protocol 5 MCG/MIN Cefepime HCl 2 gm/ Dextrose 100 mls @ 200 mls/hr 12/23/18 10:00 12/23/18 10: 26 IVPB 200 mls/hr DAILY SORAYA Administration Protocol Insulin Aspart 1 vial 12/23/18 07:00 12/23/18 12:10 Novolog Vial Sliding Scale - SQ Not Given ACHS SORAYA Protocol Ipratropium [place] 1 amp 12/23/18 08:00 12/23/18 12:27 Atrovent 0.02% Nebulizer - NEB 1 amp RQID SORAYA Administration Montelukast Sodium 10 mg 12/23/18 22:00 Singulair - PO HS SORAYA Ondansetron HCl 8 mg 12/23/18 09:15 12/23/18 12:41 Zofran Injection IVPB 8 mg Q6H PRN Administration NAUSEA Pantoprazole Sodium 20 mg 12/23/18 10:00 12/23/18 10:26 Protonix - PO 20 mg BID SORAYA Administration Polyethylene Glycol 17 gm 12/23/18 10:00 12/23/18 10:28 Miralax (For Daily Use) - PO 17 gm DAILY SORAYA Administration Prednisone 40 mg 12/23/18 10:00 12/23/18 10:25 Deltasone - PO 12/27/18 10:01 40 mg DAILY SORAYA Administration Senna 1 tab 12/23/18 10:00 12/23/18 10:26 Senna - PO 1 tab BID SORAYA Administration Tamsulosin HCl 0.4 mg 12/23/18 08:30 12/23/18 09:00 Flomax - PO 0.4 mg DAILY@0830 SORAYA Administration Impression 1. GUCCI 2. sickle cell disease 3. copd 4. dvt 5. dm Plan - renal function is improving - cont saline - gucci likely from pre-renal disease and hypotension - can decrease saline to 100 cc per hour - monitor ouput - check renal ultrasound - avoid nsaids - will follow
--- NOTE | 2018-12-23 18:01 | PN ---
Progress Note, Physician Chief Complaint: Cough Pneumonia Anemia CKD Low back pain History of Present Illness: NAD mild dyspnea - Current Medication List Current Medications: Active Medications Acetaminophen (Tylenol -) 650 mg PO Q4H PRN PRN Reason: PAIN OR FEVER Albuterol Sulfate (Ventolin 0.083% Nebulizer Soln -) 1 amp NEB RQID [facility] Last Admin: 12/23/18 16:13 Dose: 1 amp Apixaban (Eliquis -) 5 mg PO BID [facility] Last Admin: 12/23/18 10:25 Dose: 5 mg Atenolol (Tenormin -) 25 mg PO DAILY [facility] Last Admin: 12/23/18 10:03 Dose: Not Given Budesonide/Formoterol Fumarate (Symbicort 160/4.5mcg -) 1 puff IH BID [facility] Last Admin: 12/23/18 11:25 Dose: 1 puff Docusate Sodium (Colace -) 200 mg PO HS [facility] Duloxetine HCl (Cymbalta -) 30 mg PO BID [facility] Last Admin: 12/23/18 10:25 Dose: 30 mg Folic Acid (Folic Acid -) 1 mg PO DAILY [facility] Last Admin: 12/23/18 10:25 Dose: 1 mg Gabapentin (Neurontin -) 300 mg PO BID [facility] Last Admin: 12/23/18 10:26 Dose: 300 mg Sodium Chloride (Normal Saline -) 1,000 mls @ 125 mls/hr IV ASDIR [facility] Last Admin: 12/22/18 21:17 Dose: 125 mls/hr Azithromycin (Zithromax 500mg Ivpb (Pre-Docked)) 500 mg in 250 mls @ 250 mls/ hr IVPB DAILY [facility] Last Admin: 12/23/18 10:26 Dose: 250 mls/hr Norepinephrine Bitartrate 4, (000 mcg/ Dextrose) 500 mls @ 37.5 mls/hr IV TITR [facility]; Protocol Last Titration: 12/23/18 16:45 Dose: 3 mcg/min, 22.5 mls/hr Cefepime HCl 2 gm/ Dextrose 100 mls @ 200 mls/hr IVPB DAILY [facility]; Protocol Last Admin: 12/23/18 10:26 Dose: 200 mls/hr Insulin Aspart (Novolog Vial Sliding Scale -) 1 vial SQ ACHS [facility]; Protocol Last Admin: 12/23/18 17:00 Dose: Not Given Ipratropium [place] (Atrovent 0.02% Nebulizer -) 1 amp NEB RQID [facility] Last Admin: 12/23/18 16:12 Dose: 1 amp Montelukast Sodium (Singulair -) 10 mg PO HS [facility] Ondansetron HCl (Zofran Injection) 8 mg IVPB Q6H PRN PRN Reason: NAUSEA Last Admin: 12/23/18 12:41 Dose: 8 mg Pantoprazole Sodium (Protonix -) 20 mg PO BID [facility] Last Admin: 12/23/18 10:26 Dose: 20 mg Polyethylene Glycol (Miralax (For Daily Use) -) 17 gm PO DAILY [facility] Last Admin: 12/23/18 10:28 Dose: 17 gm Prednisone (Deltasone -) 40 mg PO DAILY [facility] Stop: 12/27/18 10:01 Last Admin: 12/23/18 10:25 Dose: 40 mg Senna (Senna -) 1 tab PO BID [facility] Last Admin: 12/23/18 10:26 Dose: 1 tab Tamsulosin HCl (Flomax -) 0.4 mg PO DAILY@0830 [facility] Last Admin: 12/23/18 09:00 Dose: 0.4 mg - Objective Vital Signs: Vital Signs Temperature 98.1 F 12/23/18 14:00 Pulse Rate 75 12/23/18 16:45 Respiratory Rate 14 12/23/18 16:00 Blood Pressure 120/71 12/23/18 16:45 O2 Sat by Pulse Oximetry (%) 95 12/23/18 08:26 Constitutional: Yes: Well Nourished, No Distress, Calm Cardiovascular: Yes: Regular Rate and Rhythm Respiratory: Yes: Regular, On Nasal O2 Gastrointestinal: Yes: Normal Bowel Sounds, Soft, Abdomen, Obese Genitourinary: Yes: WNL Musculoskeletal: Yes: WNL Extremities: Yes: WNL Edema: No Peripheral Pulses WNL: Yes Neurological: Yes: Alert, Oriented Psychiatric: Yes: Alert, Oriented Labs: CBC, BMP 12/23/18 06:00 12/23/18 06:00 INR, PTT INR 1.81 (0.83-1.09) H 12/22/18 18:46 Problem List - Problems (1) Hyperthyroidism Assessment/Plan: -start methimazole 5 mg po daily -endocrine consult Problems reviewed: Yes Code(s): E05.90 - THYROTOXICOSIS, UNSP WITHOUT THYROTOXIC CRISIS OR STORM (2) GUCCI (acute kidney injury) Assessment/Plan: -improved -nephrology on board -IVF -monitor trend -avoid nephrotoxic drugs -Renal/bladder US Code(s): N17.9 - ACUTE KIDNEY FAILURE, UNSPECIFIED (3) Anemia Assessment/Plan: -Monitor trend -check stool OB and B 12 -Thyroid profile indicative for hyperthyroidism -Iron profile normal Problems reviewed: Yes Code(s): D64.9 - ANEMIA, UNSPECIFIED (4) COPD exacerbation Assessment/Plan: -ID on board -Pulmonary consult -IV cefepime/zithromax -influenza screen-negative -legionella antigen-negative -Repeat CXR reviewed -Nasal O2 to keep SpO2>90% -bronchodilators Code(s): J44.1 - CHRONIC OBSTRUCTIVE PULMONARY DISEASE W (ACUTE) EXACERBATION (5) Nausea & vomiting Assessment/Plan: -resolved Problems reviewed: Yes Code(s): R11.2 - NAUSEA WITH VOMITING, UNSPECIFIED Qualifiers: Vomiting type: unspecified Vomiting Intractability: non-intractable Qualified Code(s): R11.2 - Nausea with vomiting, unspecified (6) Pneumonia Assessment/Plan: -ID on board -Pulmonary consult -IV cefepime/zithromax -influenza screen-negative -legionella antigen-negative -Repeat CXR reviewed -Nasal O2 to keep SpO2>90% -bronchodilators Problems reviewed: Yes Code(s): J18.9 - PNEUMONIA, UNSPECIFIED ORGANISM (7) Sepsis Assessment/Plan: -ID on board -Pulmonary consult -IV cefepime/zithromax -influenza screen-negative -legionella antigen-negative -Repeat CXR reviewed -Leukocytosis improved -afebrile -BC preliminary negative -Nasal O2 to keep SpO2>90% -bronchodilators Problems reviewed: Yes Code(s): A41.9 - SEPSIS, UNSPECIFIED ORGANISM (8) Pulmonary embolism Assessment/Plan: -On Eliquis Problems reviewed: Yes Code(s): I26.99 - OTHER PULMONARY EMBOLISM WITHOUT ACUTE COR PULMONALE Assessment/Plan see problem list
[2018-12-23] MEDS: DOCUSATE SODIUM 100 MG CAPSULE (FP) PO SCH (22:24)
[2018-12-23] MEDS: MONTELUKAST NA 10 MG TABLET PO SCH (22:24)
[2018-12-23] MEDS: SODIUM CHLORIDE 1,000 ML IV SCH (22:25)
[2018-12-23] MEDS: oxyCODONE HCL 40 MG SUSTAINED ACTING TABLET PO SCH (22:38)
[2018-12-24] MEDS ORDERED: VANCOMYCIN 1,000 MG in DEXTROSE 5%-WATER - 250 ML IVPB SCH (02:00)
[2018-12-24 06:43] LABS: HEMATOCRIT 19.3 % (32.4-45.2); MCH 28.6 pg (25.7-33.7); MCHC 35.4 g/dl (32.0-36.0); MEAN CELL VOLUME 80.9 fl (80-96); MEAN PLT VOLUME 8.1 fl (7.5-11.1); PLATELET COUNT 255 K/MM3 (134-434); RBC 2.38 M/mm3 (3.60-5.2); RDW 17.8 % (11.6-15.6)
[2018-12-24 07:05] LABS: HEMOGLOBIN 6.8 GM/dL (10.7-15.3)
[2018-12-24 07:09] LABS: BLOOD UREA NITROGEN 38.6 mg/dL (7-18); CALCIUM 8.3 mg/dL (8.5-10.1); CREATININE 1.8 mg/dL (0.55-1.3); MAGNESIUM 1.6 mg/dL (1.8-2.4); POTASSIUM 4.1 mmol/L (3.5-5.1)
[2018-12-24] MEDS: NOREPINEPHRINE BITARTRATE 4,000 MCG in DEXTROSE 5%-WATER - 496 ML IV SCH (07:14)
[2018-12-24] MEDS: INSULIN SLIDING SCALE (NOVOLOG) 1 VIAL SQ SCH ×4 (07:14→21:58)
[2018-12-24] MEDS: TAMSULOSIN HCL 0.4 MG CAP PO SCH (08:30)
[2018-12-24] MEDS: ALBUTEROL SO4 0.083% IH SOL 2.5 MG/3 ML VIAL.NEB. NEB SCH ×2 (08:30→12:39)
[2018-12-24] MEDS: IPRATROPIUM BR 0.02% 0.5 MG/2.5 ML VIAL.NEB. NEB SCH ×3 (08:30→17:01)
[2018-12-24] MEDS ORDERED: PT OWN MED DRAWER 7, Y5N ONE (09:12)
[2018-12-24] MEDS: predniSONE 20 MG TABLET (UD) PO SCH (09:14)
[2018-12-24] MEDS: APIXABAN 5 MG TABLET PO SCH ×2 (09:14→21:48)
[2018-12-24] MEDS: DULoxetine HCL 30 MG CAPSULE.DR PO SCH ×2 (09:14→21:48)
[2018-12-24] MEDS: FOLIC ACID 1 MG TABLET (FP) PO SCH (09:15)
[2018-12-24] MEDS: POLYETHYLENE GLYCOL 3350 119 GM BTL PO SCH (09:15)
[2018-12-24] MEDS: GABAPENTIN 300 MG CAPSULE (FP) PO SCH ×2 (09:15→21:48)
[2018-12-24] MEDS: oxyCODONE HCL 40 MG SUSTAINED ACTING TABLET PO SCH ×2 (09:15→21:48)
[2018-12-24] MEDS: PANTOPRAZOLE 20 MG TABLET (FP) PO SCH ×2 (09:16→21:48)
[2018-12-24] MEDS: SENNOSIDES 8.6MG TABLET (FP) PO SCH ×2 (09:16→21:48)
[2018-12-24] MEDS: SODIUM CHLORIDE 1,000 ML IV SCH (09:17)
[2018-12-24] MEDS: AZITHROMYCIN IVPB 500 MG/250 ML BAG IVPB SCH (09:17)
[2018-12-24] MEDS: BUDESONIDE/FORMETEROL FUMARATE 160/4.5 mcg INHALER IH SCH ×2 (09:17→21:58)
--- NOTE | 2018-12-24 11:15 | PN ---
Progress Note (short form) - Note Progress Note: vomiting resolved groin pain- she has had this multiple times before- is resolved no fevers off pressors still with cough and wheeze constipation Vital Signs Period Temp Pulse Resp BP Sys/Mendez Pulse Ox Last 24 Hr 97.8 F-98.5 F 68-95 12-21 103-131/52-89 95-99 cor-rrr lungs bilateral wheeze abd soft,nt ext no edema +dangelo CBC, BMP 12/24/18 06:00 12/24/18 06:00 Microbiology 12/23/18 02:05 Urine - Urine Clean Catch Urine Culture - Final NO GROWTH OBTAINED 12/23/18 06:00 Blood - Peripheral Venous Blood Culture - Preliminary NO GROWTH OBTAINED AFTER 24 HOURS, INCUBATION TO CONTINUE FOR 4 DAYS. 12/23/18 03:45 Blood - Peripheral Venous Blood Culture - Preliminary NO GROWTH OBTAINED AFTER 24 HOURS, INCUBATION TO CONTINUE FOR 4 DAYS. 12/23/18 10:45 Urine For Antigen Detection Legionella Antigen - Final 12/23/18 10:45 Urine For Antigen Detection Streptococcus pneumoniae Antigen (M - Final a/p hypotension and renal failure resolving for blood transfusion today cannot r/o pneumonia with cough/wheezing SCD multiple antibiotic allergies cultures influenza screen-negative legionella antigen-negative cefepime/zithromax adjusted for ARF repeat cxray Problem List - Problems (1) Sepsis Code(s): A41.9 - SEPSIS, UNSPECIFIED ORGANISM (2) Acute renal failure Code(s): N17.9 - ACUTE KIDNEY FAILURE, UNSPECIFIED (3) Sickle cell anemia Code(s): D57.1 - SICKLE-CELL DISEASE WITHOUT CRISIS Qualifiers: Sickle-cell associated disorders: without crisis Qualified Code(s): D57.1 - Sickle-cell disease without crisis (4) Allergy to multiple antibiotics Code(s): Z88.1 - ALLERGY STATUS TO OTHER ANTIBIOTIC AGENTS STATUS
[2018-12-24] MEDS: CEFEPIME 2 GM in DEXTROSE 5%-WATER 100 ML IVPB SCH (12:16)
--- NOTE | 2018-12-24 13:03 | PN ---
Progress Note (short form) - Note Progress Note: Progress Note Pulm/CCM Pt seen and examined here in the ICU. She remains slightly dyspneic but able to have conversation. 1U PRBC ordered for Hgb 6.8. Current Medications Acetaminophen (Tylenol -) 650 mg PO Q4H PRN PRN Reason: PAIN OR FEVER Albuterol Sulfate (Ventolin 0.083% Nebulizer Soln -) 1 amp NEB RQID [facility] Last Admin: 12/24/18 12:39 Dose: 1 amp Apixaban (Eliquis -) 5 mg PO BID [facility] Last Admin: 12/24/18 09:14 Dose: 5 mg Atenolol (Tenormin -) 25 mg PO DAILY [facility] Last Admin: 12/23/18 10:03 Dose: Not Given Budesonide/Formoterol Fumarate (Symbicort 160/4.5mcg -) 1 puff IH BID [facility] Last Admin: 12/24/18 09:17 Dose: 1 puff Docusate Sodium (Colace -) 200 mg PO HS [facility] Last Admin: 12/23/18 22:24 Dose: 200 mg Duloxetine HCl (Cymbalta -) 30 mg PO BID [facility] Last Admin: 12/24/18 09:14 Dose: 30 mg Folic Acid (Folic Acid -) 1 mg PO DAILY [facility] Last Admin: 12/24/18 09:15 Dose: 1 mg Gabapentin (Neurontin -) 300 mg PO BID [facility] Last Admin: 12/24/18 09:15 Dose: 300 mg Sodium Chloride (Normal Saline -) 1,000 mls @ 125 mls/hr IV ASDIR [facility] Last Admin: 12/24/18 09:17 Dose: 125 mls/hr Azithromycin (Zithromax 500mg Ivpb (Pre-Docked)) 500 mg in 250 mls @ 250 mls/ hr IVPB DAILY [facility] Last Admin: 12/24/18 09:17 Dose: 250 mls/hr Norepinephrine Bitartrate 4, (000 mcg/ Dextrose) 500 mls @ 37.5 mls/hr IV TITR [facility]; Protocol Last Admin: 12/24/18 07:14 Dose: Not Given Cefepime HCl 1 gm/ Dextrose 50 mls @ 100 mls/hr IVPB BID [facility]; Protocol Insulin Aspart (Novolog Vial Sliding Scale -) 1 vial SQ ACHS [facility]; Protocol Last Admin: 12/24/18 12:16 Dose: Not Given Ipratropium [place] (Atrovent 0.02% Nebulizer -) 1 amp NEB RQID [facility] Last Admin: 12/24/18 12:39 Dose: 1 amp Montelukast Sodium (Singulair -) 10 mg PO HS [facility] Last Admin: 12/23/18 22:24 Dose: 10 mg Ondansetron HCl (Zofran Injection) 8 mg IVPB Q6H PRN PRN Reason: NAUSEA Last Admin: 12/23/18 12:41 Dose: 8 mg Oxycodone HCl (Oxycontin -) 40 mg PO BID [facility] Last Admin: 12/24/18 09:15 Dose: 40 mg Pantoprazole Sodium (Protonix -) 20 mg PO BID [facility] Last Admin: 12/24/18 09:16 Dose: 20 mg Polyethylene Glycol (Miralax (For Daily Use) -) 17 gm PO DAILY [facility] Last Admin: 12/24/18 09:15 Dose: 17 gm Prednisone (Deltasone -) 40 mg PO DAILY [facility] Stop: 12/27/18 10:01 Last Admin: 12/24/18 09:14 Dose: 40 mg Senna (Senna -) 1 tab PO BID [facility] Last Admin: 12/24/18 09:16 Dose: 1 tab Tamsulosin HCl (Flomax -) 0.4 mg PO DAILY@0830 [facility] Last Admin: 12/24/18 08:30 Dose: 0.4 mg Vital Signs Period Temp Pulse Resp BP Sys/Mendez Pulse Ox Last 24 Hr 97.8 F-98.5 F 74-95 14-21 103-131/52-89 95-99 Intake & Output 12/21/18 12/22/18 12/23/18 12/24/18 23:59 23:59 23:59 23:59 Intake Total 5828 1870 Output Total 4650 1500 Balance 1178 370 Weight 81.647 kg 83.773 kg 83.915 kg Gen: Sitting up in bed in NAD HEENT: PERRL CV: S1, S2, RRR Resp: Rales; expiratory wheeze Abd: Soft,NT Ext: WWP, trace edema WNL CBC, BMP 12/24/18 06:00 12/24/18 06:00 Imaging - Results X-ray: Report Reviewed, Image Reviewed Cat Scan: Report Reviewed, Image Reviewed Problem List - Problems (1) Constipation Code(s): K59.00 - CONSTIPATION, UNSPECIFIED (2) GUCCI (acute kidney injury) Code(s): N17.9 - ACUTE KIDNEY FAILURE, UNSPECIFIED (3) Anemia Code(s): D64.9 - ANEMIA, UNSPECIFIED (4) COPD exacerbation Code(s): J44.1 - CHRONIC OBSTRUCTIVE PULMONARY DISEASE W (ACUTE) EXACERBATION (5) Pneumonia Code(s): J18.9 - PNEUMONIA, UNSPECIFIED ORGANISM Assessment/Plan 73 yo woman w/ COPD on LTOT, asthma, PE on apixaban, DM and SCD who presented w / SOB, weakness s/p fall, and productive cough c/f CAP, COPD exacerbation c/b septic shock and GUCCI most likely prerenal 2/2 dehydration. -Pressors for MAP 65-75 -O2 for sat >89% -cont bronchodilators -Prednisone 40mg daily for COPD exacerbation for 5day course -Renal consulted -renal dose all medications -cont IV fluids -renal u/s ordered -aggressive bowel regimen -ABX for CAP per ID (ceftriaxone and azithro) -Normal transfusion thresholds (Hgb >7.0, Plt >10) -cont AC for h/o DVT/PE -Glucose control MARYANNE Hernández Pulm/CCM CCT: 40m
--- NOTE | 2018-12-24 15:19 | PN ---
Progress Note, Physician Chief Complaint: Cough Pneumonia Anemia CKD Low back pain History of Present Illness: NAD Mild dyspnea, but overall improved On IV abx Off levophed for now, maintaining BP well - Current Medication List Current Medications: Active Medications Acetaminophen (Tylenol -) 650 mg PO Q4H PRN PRN Reason: PAIN OR FEVER Albuterol/Ipratropium (Duoneb -) 1 amp NEB RQID [facility] Apixaban (Eliquis -) 5 mg PO BID [facility] Last Admin: 12/24/18 09:14 Dose: 5 mg Atenolol (Tenormin -) 25 mg PO DAILY [facility] Last Admin: 12/23/18 10:03 Dose: Not Given Budesonide/Formoterol Fumarate (Symbicort 160/4.5mcg -) 1 puff IH BID [facility] Last Admin: 12/24/18 09:17 Dose: 1 puff Docusate Sodium (Colace -) 200 mg PO HS [facility] Last Admin: 12/23/18 22:24 Dose: 200 mg Duloxetine HCl (Cymbalta -) 30 mg PO BID [facility] Last Admin: 12/24/18 09:14 Dose: 30 mg Folic Acid (Folic Acid -) 1 mg PO DAILY [facility] Last Admin: 12/24/18 09:15 Dose: 1 mg Gabapentin (Neurontin -) 300 mg PO BID [facility] Last Admin: 12/24/18 09:15 Dose: 300 mg Sodium Chloride (Normal Saline -) 1,000 mls @ 125 mls/hr IV ASDIR [facility] Last Admin: 12/24/18 09:17 Dose: 125 mls/hr Azithromycin (Zithromax 500mg Ivpb (Pre-Docked)) 500 mg in 250 mls @ 250 mls/ hr IVPB DAILY [facility] Last Admin: 12/24/18 09:17 Dose: 250 mls/hr Norepinephrine Bitartrate 4, (000 mcg/ Dextrose) 500 mls @ 37.5 mls/hr IV TITR [facility]; Protocol Last Admin: 12/24/18 07:14 Dose: Not Given Cefepime HCl 1 gm/ Dextrose 50 mls @ 100 mls/hr IVPB BID [facility]; Protocol Insulin Aspart (Novolog Vial Sliding Scale -) 1 vial SQ ACHS [facility]; Protocol Last Admin: 12/24/18 12:16 Dose: Not Given Ipratropium [place] (Atrovent 0.02% Nebulizer -) 1 amp NEB RQID [facility] Last Admin: 12/24/18 12:39 Dose: 1 amp Montelukast Sodium (Singulair -) 10 mg PO HS [facility] Last Admin: 12/23/18 22:24 Dose: 10 mg Ondansetron HCl (Zofran Injection) 8 mg IVPB Q6H PRN PRN Reason: NAUSEA Last Admin: 12/23/18 12:41 Dose: 8 mg Oxycodone HCl (Oxycontin -) 40 mg PO BID [facility] Last Admin: 12/24/18 09:15 Dose: 40 mg Pantoprazole Sodium (Protonix -) 20 mg PO BID [facility] Last Admin: 12/24/18 09:16 Dose: 20 mg Polyethylene Glycol (Miralax (For Daily Use) -) 17 gm PO DAILY [facility] Last Admin: 12/24/18 09:15 Dose: 17 gm Prednisone (Deltasone -) 40 mg PO DAILY [facility] Stop: 12/27/18 10:01 Last Admin: 12/24/18 09:14 Dose: 40 mg Senna (Senna -) 1 tab PO BID [facility] Last Admin: 12/24/18 09:16 Dose: 1 tab Tamsulosin HCl (Flomax -) 0.4 mg PO DAILY@0830 [facility] Last Admin: 12/24/18 08:30 Dose: 0.4 mg - Objective Vital Signs: Vital Signs Temperature 97.7 F 12/24/18 14:00 Pulse Rate 95 H 12/24/18 14:00 Respiratory Rate 21 H 12/24/18 14:00 Blood Pressure 131/82 12/24/18 14:00 O2 Sat by Pulse Oximetry (%) 99 12/24/18 08:14 Constitutional: Yes: Well Nourished, No Distress, Calm Cardiovascular: Yes: Regular Rate and Rhythm Respiratory: Yes: Regular, On Nasal O2, SOB on Exertion Gastrointestinal: Yes: Normal Bowel Sounds, Soft, Abdomen, Obese Genitourinary: Yes: [place] Present Musculoskeletal: Yes: Muscle Weakness Extremities: Yes: WNL Edema: No Peripheral Pulses WNL: Yes Neurological: Yes: Alert, Oriented Psychiatric: Yes: Alert, Oriented Labs: CBC, BMP 12/24/18 06:00 12/24/18 06:00 INR, PTT INR 1.81 (0.83-1.09) H 12/22/18 18:46 Problem List - Problems (1) Sickle cell anemia with pain Assessment/Plan: -pain management -IVF Problems reviewed: Yes Code(s): D57.00 - HB-SS DISEASE WITH CRISIS, UNSPECIFIED (2) HTN (hypertension) Assessment/Plan: -Hold BP meds -Monitor off levophed Problems reviewed: Yes Code(s): I10 - ESSENTIAL (PRIMARY) HYPERTENSION Qualifiers: Hypertension type: essential hypertension Qualified Code(s): I10 - Essential (primary) hypertension (3) Nausea & vomiting Assessment/Plan: -resolved Problems reviewed: Yes Code(s): R11.2 - NAUSEA WITH VOMITING, UNSPECIFIED Qualifiers: Vomiting type: unspecified Vomiting Intractability: non-intractable Qualified Code(s): R11.2 - Nausea with vomiting, unspecified (4) COPD exacerbation Assessment/Plan: -ID on board -Pulmonary consult -IV cefepime/zithromax -influenza screen-negative -legionella antigen-negative -Repeat CXR reviewed -Nasal O2 to keep SpO2>90% -bronchodilators Problems reviewed: Yes Code(s): J44.1 - CHRONIC OBSTRUCTIVE PULMONARY DISEASE W (ACUTE) EXACERBATION (5) Sepsis Assessment/Plan: -ID on board -Pulmonary consult -IV cefepime/zithromax -influenza screen-negative -legionella antigen-negative -Repeat CXR reviewed -Leukocytosis improved -afebrile -BC preliminary negative -Nasal O2 to keep SpO2>90% -bronchodilators Problems reviewed: Yes Code(s): A41.9 - SEPSIS, UNSPECIFIED ORGANISM (6) GUCCI (acute kidney injury) Assessment/Plan: -improved -nephrology on board -IVF -monitor trend -avoid nephrotoxic drugs -Renal/bladder US results pending Problems reviewed: Yes Code(s): N17.9 - ACUTE KIDNEY FAILURE, UNSPECIFIED (7) Anemia Assessment/Plan: -S/P 1 unit PRBC -Monitor trend -check stool OB and B 12 -Thyroid profile indicative for hyperthyroidism -Iron profile normal Problems reviewed: Yes Code(s): D64.9 - ANEMIA, UNSPECIFIED (8) Hyperthyroidism Assessment/Plan: -start methimazole 5 mg po daily -endocrine consult Problems reviewed: Yes Code(s): E05.90 - THYROTOXICOSIS, UNSP WITHOUT THYROTOXIC CRISIS OR STORM Assessment/Plan see problem list
[2018-12-24] MEDS ORDERED: SODIUM CHLORIDE 1,000 ML IV SCH (15:59)
--- NOTE | 2018-12-24 15:59 | PN ---
Progress Note, Physician History of Present Illness: Pt seen and examined at bedside. She is awake and alert. She denies shortness of breath. - Current Medication List Current Medications: Active Medications Acetaminophen (Tylenol -) 650 mg PO Q4H PRN PRN Reason: PAIN OR FEVER Albuterol/Ipratropium (Duoneb -) 1 amp NEB RQID [facility] Apixaban (Eliquis -) 5 mg PO BID [facility] Last Admin: 12/24/18 09:14 Dose: 5 mg Atenolol (Tenormin -) 25 mg PO DAILY [facility] Last Admin: 12/23/18 10:03 Dose: Not Given Budesonide/Formoterol Fumarate (Symbicort 160/4.5mcg -) 1 puff IH BID [facility] Last Admin: 12/24/18 09:17 Dose: 1 puff Docusate Sodium (Colace -) 200 mg PO HS [facility] Last Admin: 12/23/18 22:24 Dose: 200 mg Duloxetine HCl (Cymbalta -) 30 mg PO BID [facility] Last Admin: 12/24/18 09:14 Dose: 30 mg Folic Acid (Folic Acid -) 1 mg PO DAILY [facility] Last Admin: 12/24/18 09:15 Dose: 1 mg Gabapentin (Neurontin -) 300 mg PO BID [facility] Last Admin: 12/24/18 09:15 Dose: 300 mg Sodium Chloride (Normal Saline -) 1,000 mls @ 125 mls/hr IV ASDIR [facility] Last Admin: 12/24/18 09:17 Dose: 125 mls/hr Azithromycin (Zithromax 500mg Ivpb (Pre-Docked)) 500 mg in 250 mls @ 250 mls/ hr IVPB DAILY [facility] Last Admin: 12/24/18 09:17 Dose: 250 mls/hr Norepinephrine Bitartrate 4, (000 mcg/ Dextrose) 500 mls @ 37.5 mls/hr IV TITR [facility]; Protocol Last Admin: 12/24/18 07:14 Dose: Not Given Cefepime HCl 1 gm/ Dextrose 50 mls @ 100 mls/hr IVPB BID [facility]; Protocol Insulin Aspart (Novolog Vial Sliding Scale -) 1 vial SQ ACHS [facility]; Protocol Last Admin: 12/24/18 12:16 Dose: Not Given Ipratropium [place] (Atrovent 0.02% Nebulizer -) 1 amp NEB RQID [facility] Last Admin: 12/24/18 12:39 Dose: 1 amp Methimazole (Tapazole -) 5 mg PO DAILY [facility] Montelukast Sodium (Singulair -) 10 mg PO HS [facility] Last Admin: 12/23/18 22:24 Dose: 10 mg Ondansetron HCl (Zofran Injection) 8 mg IVPB Q6H PRN PRN Reason: NAUSEA Last Admin: 12/23/18 12:41 Dose: 8 mg Oxycodone HCl (Oxycontin -) 40 mg PO BID [facility] Last Admin: 12/24/18 09:15 Dose: 40 mg Pantoprazole Sodium (Protonix -) 20 mg PO BID [facility] Last Admin: 12/24/18 09:16 Dose: 20 mg Polyethylene Glycol (Miralax (For Daily Use) -) 17 gm PO DAILY [facility] Last Admin: 12/24/18 09:15 Dose: 17 gm Prednisone (Deltasone -) 40 mg PO DAILY [facility] Stop: 12/27/18 10:01 Last Admin: 12/24/18 09:14 Dose: 40 mg Senna (Senna -) 1 tab PO BID [facility] Last Admin: 12/24/18 09:16 Dose: 1 tab Tamsulosin HCl (Flomax -) 0.4 mg PO DAILY@0830 [facility] Last Admin: 12/24/18 08:30 Dose: 0.4 mg - Objective Vital Signs: Vital Signs Temperature 97.7 F 12/24/18 14:00 Pulse Rate 95 H 12/24/18 14:00 Respiratory Rate 21 H 12/24/18 14:00 Blood Pressure 131/82 12/24/18 14:00 O2 Sat by Pulse Oximetry (%) 99 12/24/18 08:14 Constitutional: Yes: Calm Eyes: Yes: Conjunctiva Clear HENT: Yes: Atraumatic Neck: Yes: Supple Cardiovascular: Yes: S1, S2 Respiratory: Yes: CTA Bilaterally Gastrointestinal: Yes: Soft Genitourinary: Yes: Dangelo Present Musculoskeletal: Yes: WNL Edema: No Integumentary: Yes: WNL Neurological: Yes: Oriented Psychiatric: Yes: Oriented Labs: CBC, BMP 12/24/18 06:00 12/24/18 06:00 INR, PTT INR 1.81 (0.83-1.09) H 12/22/18 18:46 Problem List - Problems (1) GUCCI (acute kidney injury) Code(s): N17.9 - ACUTE KIDNEY FAILURE, UNSPECIFIED Assessment/Plan Current Medications Generic Name Dose Route Start Last Admin Trade Name Freq PRN Reason Stop Dose Admin Acetaminophen 650 mg 12/22/18 22:25 Tylenol - PO Q4H PRN PAIN OR FEVER Albuterol/Ipratropium 1 amp 12/24/18 16:00 Duoneb - NEB RQID [facility] Apixaban 5 mg 12/23/18 10:00 12/24/18 09:14 Eliquis - PO 5 mg BID [facility] Administration Atenolol 25 mg 12/23/18 10:00 12/23/18 10:03 Tenormin - PO Not Given DAILY [facility] Budesonide/Formoterol Fumarate 1 puff 12/23/18 10:00 12/24/18 09:17 Symbicort 160/4.5mcg - IH 1 puff BID [facility] Administration Docusate Sodium 200 mg 12/23/18 22:00 12/23/18 22:24 Colace - PO 200 mg HS [facility] Administration Duloxetine HCl 30 mg 12/23/18 10:00 12/24/18 09:14 Cymbalta - PO 30 mg BID [facility] Administration Folic Acid 1 mg 12/23/18 10:00 12/24/18 09:15 Folic Acid - PO 1 mg DAILY [facility] Administration Gabapentin 300 mg 12/23/18 10:00 12/24/18 09:15 Neurontin - PO 300 mg BID [facility] Administration Sodium Chloride 1,000 mls @ 125 mls/hr 12/22/18 20:01 12/24/18 09:17 Normal Saline - IV 125 mls/hr ASDIR [facility] Administration Azithromycin 500 mg in 250 mls @ 250 mls/hr 12/23/18 10:00 12/24/18 09:17 Zithromax 500mg Ivpb (Pre-Docked) IVPB 250 mls/hr DAILY [facility] Administration Norepinephrine Bitartrate 4, 500 mls @ 37.5 mls/hr 12/23/18 01:45 12/24/18 07 :14 000 mcg/ Dextrose IV Not Given TITR [facility] Protocol 5 MCG/MIN Cefepime HCl 1 gm/ Dextrose 50 mls @ 100 mls/hr 12/24/18 22:00 IVPB BID [facility] Protocol Insulin Aspart 1 vial 12/23/18 07:00 12/24/18 12:16 Novolog Vial Sliding Scale - SQ Not Given ACHS [facility] Protocol Ipratropium [place] 1 amp 12/23/18 08:00 12/24/18 12:39 Atrovent 0.02% Nebulizer - NEB 1 amp RQID [facility] Administration Methimazole 5 mg 12/25/18 10:00 Tapazole - PO DAILY [facility] Montelukast Sodium 10 mg 12/23/18 22:00 12/23/18 22:24 Singulair - PO 10 mg HS [facility] Administration Ondansetron HCl 8 mg 12/23/18 09:15 12/23/18 12:41 Zofran Injection IVPB 8 mg Q6H PRN Administration NAUSEA Oxycodone HCl 40 mg 12/23/18 22:45 12/24/18 09:15 Oxycontin - PO 40 mg BID [facility] Administration Pantoprazole Sodium 20 mg 12/23/18 10:00 12/24/18 09:16 Protonix - PO 20 mg BID [facility] Administration Polyethylene Glycol 17 gm 12/23/18 10:00 12/24/18 09:15 Miralax (For Daily Use) - PO 17 gm DAILY [facility] Administration Prednisone 40 mg 12/23/18 10:00 12/24/18 09:14 Deltasone - PO 12/27/18 10:01 40 mg DAILY [facility] Administration Senna 1 tab 12/23/18 10:00 12/24/18 09:16 Senna - PO 1 tab BID [facility] Administration Tamsulosin HCl 0.4 mg 12/23/18 08:30 12/24/18 08:30 Flomax - PO 0.4 mg DAILY@0830 [facility] Administration Impression 1. UGCCI 2. sickle cell disease 3. copd 4. dvt 5. dm Plan - can decrease fluids - renal function is improved - repeat labs in am - can d/c dangelo - follow ultrasound - avoid nsaids - will follow
[2018-12-24] MEDS: ALBUTEROL SO4 2.5/IPRATROPIUM 0.5 INH SOL 3 ML VIAL.NEB. NEB SCH ×2 (17:01→20:32)
[2018-12-24 18:06] LABS: HEMATOCRIT 23.1 % (32.4-45.2); HEMOGLOBIN 7.8 GM/dL (10.7-15.3); MCH 28.4 pg (25.7-33.7); MCHC 33.9 g/dl (32.0-36.0); MEAN CELL VOLUME 83.7 fl (80-96); MEAN PLT VOLUME 8.2 fl (7.5-11.1); PLATELET COUNT 273 K/MM3 (134-434); RBC 2.76 M/mm3 (3.60-5.2); RDW 17.7 % (11.6-15.6); WHITE BLOOD COUNT 15.5 K/mm3 (4.0-10.0)
[2018-12-24] MEDS ORDERED: IPRATROPIUM BR 0.02% 0.5 MG/2.5 ML VIAL.NEB. NEB PRN (18:45)
--- NOTE | 2018-12-24 20:19 | EKG ---
Test Reason : Blood Pressure : / mmHG Vent. Rate : 074 BPM Atrial Rate : 074 BPM P-R Int : 176 ms QRS Dur : 084 ms QT Int : 356 ms P-R-T Axes : 044 -08 038 degrees QTc Int : 395 ms NORMAL SINUS RHYTHM WITH SINUS ARRHYTHMIA NORMAL ECG WHEN COMPARED WITH ECG OF 26-JUL-2018 03:04, CRITERIA FOR SEPTAL INFARCT ARE NO LONGER PRESENT Confirmed by NANETTE ANGELES MD ([id number]) on 12/24/2018 8:18:27 PM Referred By: Confirmed By:NANETTE ANGELES MD
[2018-12-24] MEDS ORDERED: CEFEPIME HCL 1 GM VIAL (RESTRICTED TO ID) ONE (21:41)
[2018-12-24] MEDS ORDERED: DEXTROSE 5%-WATER - 50 ML IVPB ONE (21:41)
[2018-12-24] MEDS: DOCUSATE SODIUM 100 MG CAPSULE (FP) PO SCH (21:47)
[2018-12-24] MEDS: MONTELUKAST NA 10 MG TABLET PO SCH (21:48)
[2018-12-24] MEDS: CEFEPIME 1 GM in DEXTROSE 5%-WATER - 50 ML IVPB SCH (21:58)
[2018-12-24] MEDS ORDERED: BISACODYL 10 MG SUPP.RECT PR ONE (23:58)
--- NOTE | 2018-12-25 01:34 | CONSULT ---
Consult Consult Specialty:: endocrine Referred by:: Lisa MURPHY Reason for Consultation:: hyperthyroidism - History of Present Illness Chief Complaint: shortness of breath and coughing/ restless History of Present Illness: 73 year old female with of Sickle Cell Disease, COPD (?not on home O2?, symbicort and spiriva), GUCCI, PE/DVT (apixaban), nephrolithiasis? chronic lower back pain (on gabapentin 300TID, oxycodone 40mg BID) and Asthma admitted with lower back pain radiating to the left groin. shortness of breath and Chest pain central nonradiating, . She has feeling of restlessness anxiety,denies weight loss,nausea or vomiting.found to have hyperthyroidism. - Past Medical History Cardio/Vascular: Yes: Deep Vein Thrombosis, HTN Pulmonary: Yes: Asthma, COPD, Pulmonary Embolus Gastrointestinal: Yes: Constipation, GERD Renal/: Yes: Renal Inusuff, Neurogenic Bladder Psych: Yes: Addictions, Other (Pain meds- methadone, oxycodone ) Musculoskeletal: Yes: Chronic low back pain Endocrine: Yes: Diabetes Mellitus - Past Surgical History Past Surgical History: Yes: Cholecystectomy, Hysterectomy, Joint Replacement - Alcohol/Substance Use Hx Alcohol Use: No History of Substance Use: reports: Prescription - Smoking History Smoking history: Current some day smoker Have you smoked in the past 12 months: No Aproximately how many cigarettes per day: 0 - Social History Usual Living Arrangement: With Spouse (in apartment with 3-4 steps to enter) ADL: Independent History of Recent Travel: No Home Medications - Allergies Allergies/Adverse Reactions: Allergies Allergy/AdvReac Type Severity Reaction Status Date / Time ciprofloxacin [From Cipro] Allergy Itching Verified 12/22/18 17:02 ciprofloxacin HCl Allergy Itching Verified 12/22/18 17:02 [From Cipro] codeine [Codeine] Allergy Verified 12/22/18 17:02 levofloxacin [From Levaquin] Allergy Itching Verified 12/22/18 17:02 Penicillins Allergy Itching Verified 12/22/18 17:02 Sulfa (Sulfonamide Allergy Verified 12/22/18 17:02 Antibiotics) tetanus immune globulin Allergy Verified 12/22/18 17:02 IV DYE Allergy Uncoded 12/22/18 17:02 - Home Medications Home Medications: Ambulatory Orders Folic Acid - 1 mg PO DAILY 01/05/14 Docusate Sodium [Colace -] 100 mg PO DAILY 04/06/15 Montelukast Na [Singulair -] 10 mg PO HS 04/06/15 Losartan Potassium [Cozaar -] 50 mg PO DAILY 01/21/18 oxyCODONE SR [Oxycontin] 40 mg PO Q12H 05/21/18 Acetaminophen [Tylenol .Regular Strength -] 650 mg PO Q4H PRN tablet 05/26/18 Albuterol 0.083% Nebulizer [place] [Ventolin 0.083% Nebulizer Soln -] 1 amp NEB Q4H PRN amp 05/26/18 Gabapentin [Neurontin -] 300 mg PO BID capsule 06/15/18 Omeprazole 20 mg PO BID 06/27/18 Albuterol 2.5/Ipratropium 0.5 [Duoneb -] 1 amp NEB RQID amp 06/30/18 Apixaban [Eliquis] 5 mg PO BID #30 tablet MDD 2 06/30/18 Atenolol [Tenormin -] 25 mg PO DAILY tablet 06/30/18 Budesonide/Formeterol Fumarate [SYMBICORT 160/4.5mcg -] 1 inh PO BID #1 cannister 06/30/18 Cholecalciferol (Vitamin D3) [Vitamin D3 -] 1,000 unit PO DAILY tab 06/30/18 Cholecalciferol (Vitamin D3) [Vitamin D3 -] 1,000 unit PO DAILY #30 tab Duloxetine HCl [Cymbalta -] 30 mg PO BID #30 capsule. MDD 2 06/30/18 Sitagliptin Phosphate [Januvia -] 25 mg PO DAILY@0700 tab 06/30/18 Sitagliptin Phosphate [Januvia] 25 mg PO DAILY #30 tablet MDD 1 06/30/18 Tamsulosin HCl [Flomax -] 0.4 mg PO DAILY@0830 #30 cap.er.24h MDD 1 06/30/18 Tamsulosin HCl [Flomax] 0.4 mg PO DAILY #30 cap.er.24h MDD 1 06/30/18 Review of Systems - Review of Systems Constitutional: reports: Weakness Eyes: reports: No Symptoms HENT: reports: No Symptoms Neck: reports: No Symptoms Cardiovascular: reports: Palpitations, Shortness of Breath Respiratory: reports: Exercise Intolerance, SOB, SOB on Exertion Gastrointestinal: reports: No Symptoms Genitourinary: reports: No Symptoms Breasts: reports: No Symptoms Reported Neurological: reports: Tremors, Weakness Physical Exam Vital Signs: Vital Signs Temperature 98.1 F 12/24/18 18:00 Pulse Rate 105 H 12/24/18 20:00 Respiratory Rate 18 12/24/18 20:00 Blood Pressure 143/71 12/24/18 20:00 O2 Sat by Pulse Oximetry (%) 99 12/24/18 08:14 Constitutional: Yes: Anxious Eyes: Yes: EOM Intact, PERRL HENT: Yes: Normocephalic Neck: Yes: Trachea Midline Cardiovascular: Yes: Tachycardia Respiratory: Yes: On Nasal O2, Rhonchi, Wheezes Gastrointestinal: Yes: Normal Bowel Sounds ...Rectal Exam: Yes: Deferred Musculoskeletal: Yes: Back Pain, Muscle Pain, Muscle Weakness Extremities: Yes: WNL Neurological: Yes: Alert, Oriented Labs: CBC, BMP 12/24/18 17:55 12/24/18 06:00 Problem List - Problems (1) Allergy to multiple antibiotics Problems reviewed: Yes Code(s): Z88.1 - ALLERGY STATUS TO OTHER ANTIBIOTIC AGENTS STATUS (2) Chronic back pain Problems reviewed: Yes Code(s): M54.9 - DORSALGIA, UNSPECIFIED; G89.29 - OTHER CHRONIC PAIN (3) Constipation Problems reviewed: Yes Code(s): K59.00 - CONSTIPATION, UNSPECIFIED (4) GERD (gastroesophageal reflux disease) Problems reviewed: Yes Code(s): K21.9 - GASTRO-ESOPHAGEAL REFLUX DISEASE WITHOUT ESOPHAGITIS (5) Hyperthyroidism Code(s): E05.90 - THYROTOXICOSIS, UNSP WITHOUT THYROTOXIC CRISIS OR STORM (6) Status post fall Code(s): Z91.81 - HISTORY OF FALLING (7) GUCCI (acute kidney injury) Code(s): N17.9 - ACUTE KIDNEY FAILURE, UNSPECIFIED Assessment/Plan Current Active Problems Allergy to multiple antibiotics (Acute) Back pain (Acute) Chronic back pain (Acute) Constipation (Acute) GERD (gastroesophageal reflux disease) (Acute) Hyperthyroidism (Acute) Status post fall (Acute) Abnormal Lab Results 12/22/18 12/24/18 12/24/18 18:46 06:00 06:00 WBC 12.0 H RBC 2.38 L Hgb 6.8 L* Hct 19.3 L RDW 17.8 H Chloride Anion Gap BUN Creatinine Random Glucose Hemoglobin A1c % Calcium Magnesium Iron TIBC Unsaturated IBC TSH Random Vancomycin 6.0 L Crossmatch See Detail 12/24/18 12/24/18 12/24/18 06:00 06:00 06:00 WBC RBC Hgb Hct RDW Chloride 109 H Anion Gap 4 L BUN 38.6 H Creatinine 1.8 H Random Glucose 148 H Hemoglobin A1c % < 4.2 L Calcium 8.3 L Magnesium 1.6 L Iron 45 L TIBC 219 L Unsaturated IBC 174 L TSH 0.04 L Random Vancomycin Crossmatch 12/24/18 17:55 WBC 15.5 H RBC 2.76 L Hgb 7.8 L Hct 23.1 L D RDW 17.7 H Chloride Anion Gap BUN Creatinine Random Glucose Hemoglobin A1c % Calcium Magnesium Iron TIBC Unsaturated IBC TSH Random Vancomycin Crossmatch plan: sitagliptin 25mg bgm qid novolog scale tapazole 5mg daily\ ck free t4 [id number] ck [id number]
[2018-12-25] MEDS: NOREPINEPHRINE BITARTRATE 4,000 MCG in DEXTROSE 5%-WATER - 496 ML IV SCH (02:08)
[2018-12-25] MEDS: INSULIN SLIDING SCALE (NOVOLOG) 1 VIAL SQ SCH ×4 (06:26→23:56)
[2018-12-25 07:02] LABS: BASO % 0.5 % (0-2.0); EOS % 0.1 % (0-4.5); HEMATOCRIT 22.2 % (32.4-45.2); HEMOGLOBIN 7.7 GM/dL (10.7-15.3); LYMPH % 20.2 % (8-40); MCH 28.6 pg (25.7-33.7); MCHC 34.8 g/dl (32.0-36.0); MEAN CELL VOLUME 82.1 fl (80-96); MEAN PLT VOLUME 8.2 fl (7.5-11.1); MONO % 4.8 % (3.8-10.2); NEUT % 74.4 % (42.8-82.8); PLATELET COUNT 271 K/MM3 (134-434); RBC 2.71 M/mm3 (3.60-5.2); RDW 17.2 % (11.6-15.6)
[2018-12-25 07:52] LABS: ALBUMIN 2.7 g/dl (3.4-5.0); BILIRUBIN,TOTAL 0.5 mg/dL (0.2-1); BLOOD UREA NITROGEN 27.6 mg/dL (7-18); CALCIUM 8.7 mg/dL (8.5-10.1); CREATININE 1.1 mg/dL (0.55-1.3); POTASSIUM 3.9 mmol/L (3.5-5.1); TOT PROT 6.4 g/dl (6.4-8.2)
[2018-12-25] MEDS: ALBUTEROL SO4 2.5/IPRATROPIUM 0.5 INH SOL 3 ML VIAL.NEB. NEB SCH ×4 (08:06→21:17)
[2018-12-25] MEDS: TAMSULOSIN HCL 0.4 MG CAP PO SCH (08:12)
[2018-12-25] MEDS ORDERED: CEFEPIME HCL 1 GM VIAL (RESTRICTED TO ID) ONE (09:21)
[2018-12-25] MEDS ORDERED: DEXTROSE 5%-WATER - 50 ML IVPB ONE ×2 (09:21→10:57)
[2018-12-25] MEDS: FOLIC ACID 1 MG TABLET (FP) PO SCH (09:23)
[2018-12-25] MEDS: oxyCODONE HCL 40 MG SUSTAINED ACTING TABLET PO SCH (09:23)
[2018-12-25] MEDS: GABAPENTIN 300 MG CAPSULE (FP) PO SCH ×2 (09:24→23:54)
[2018-12-25] MEDS: PANTOPRAZOLE 20 MG TABLET (FP) PO SCH ×2 (09:24→23:53)
[2018-12-25] MEDS: APIXABAN 5 MG TABLET PO SCH ×2 (09:24→23:54)
[2018-12-25] MEDS: predniSONE 20 MG TABLET (UD) PO SCH (09:24)
[2018-12-25] MEDS: SENNOSIDES 8.6MG TABLET (FP) PO SCH ×2 (09:24→23:54)
[2018-12-25] MEDS: DULoxetine HCL 30 MG CAPSULE.DR PO SCH ×2 (09:24→23:54)
--- NOTE | 2018-12-25 09:24 | PN ---
Progress Note (short form) - Note Progress Note: still with cough and wheeze constipation resolved on prednisone Vital Signs Period Temp Pulse Resp BP Sys/Mendez Pulse Ox Last 24 Hr 97.6 F-98.1 F 82-105 15-26 105-150/59-99 99-99 cor-rrr lungs decreased bs at bases, bilateral rhonchi abd soft,nt ext trace edema CBC, BMP 12/25/18 06:00 12/25/18 06:00 Microbiology 12/23/18 06:00 Blood - Peripheral Venous Blood Culture - Preliminary NO GROWTH OBTAINED AFTER 48 HOURS, INCUBATION TO CONTINUE FOR 3 DAYS. 12/23/18 03:45 Blood - Peripheral Venous Blood Culture - Preliminary NO GROWTH OBTAINED AFTER 48 HOURS, INCUBATION TO CONTINUE FOR 3 DAYS. 12/23/18 02:05 Urine - Urine Clean Catch Urine Culture - Final NO GROWTH OBTAINED 12/23/18 10:45 Urine For Antigen Detection Legionella Antigen - Final 12/23/18 10:45 Urine For Antigen Detection Streptococcus pneumoniae Antigen (M - Final cxray- congestion, cannot r/o infiltrate left base a/p cannot r/o pneumonia with cough/wheezing- SCD-s/p transfusion multiple antibiotic allergies acute renal failure resolved ?congestion- volume overload- consider trial of lasix, d/c ivf continue antibiotics day #3 cefepime/zithromax, switch to rocephin/zithromax, cultures are negative leukocytosis may be partially due to steroids Problem List - Problems (1) Sepsis Code(s): A41.9 - SEPSIS, UNSPECIFIED ORGANISM (2) Acute renal failure Code(s): N17.9 - ACUTE KIDNEY FAILURE, UNSPECIFIED (3) Sickle cell anemia Code(s): D57.1 - SICKLE-CELL DISEASE WITHOUT CRISIS Qualifiers: Sickle-cell associated disorders: without crisis Qualified Code(s): D57.1 - Sickle-cell disease without crisis (4) Allergy to multiple antibiotics Code(s): Z88.1 - ALLERGY STATUS TO OTHER ANTIBIOTIC AGENTS STATUS
[2018-12-25] MEDS: CEFEPIME 1 GM in DEXTROSE 5%-WATER - 50 ML IVPB SCH (09:25)
[2018-12-25] MEDS: AZITHROMYCIN IVPB 500 MG/250 ML BAG IVPB SCH (09:25)
[2018-12-25 09:54] LABS: ANISOCYTOSIS 1+; PLATELET ESTIMATE NORMAL
[2018-12-25] MEDS ORDERED: CEFTRIAXONE 1 GM in DEXTROSE 5%-WATER - 50 ML IVPB SCH (10:00)
[2018-12-25] MEDS ORDERED: METHIMAZOLE 5 MG TABLET (FP) PO SCH (10:00)
[2018-12-25] MEDS: POLYETHYLENE GLYCOL 3350 119 GM BTL PO SCH (10:00)
[2018-12-25] MEDS ORDERED: cefTRIAXone SODIUM 1 GM VIAL ONE (10:57)
[2018-12-25] MEDS: BUDESONIDE/FORMETEROL FUMARATE 160/4.5 mcg INHALER IH SCH ×2 (11:33→23:50)
--- NOTE | 2018-12-25 11:41 | PN ---
Progress Note, Physician Chief Complaint: patient complaining of cough says she feels slightly better than admission zithromax and rocephin s/p PRBC tranfusion - Current Medication List Current Medications: Active Medications Acetaminophen (Tylenol -) 650 mg PO Q4H PRN PRN Reason: PAIN OR FEVER Albuterol/Ipratropium (Duoneb -) 1 amp NEB RQID [facility] Last Admin: 12/25/18 08:06 Dose: 1 amp Apixaban (Eliquis -) 5 mg PO BID [facility] Last Admin: 12/25/18 09:24 Dose: 5 mg Atenolol (Tenormin -) 25 mg PO DAILY [facility] Last Admin: 12/23/18 10:03 Dose: Not Given Budesonide/Formoterol Fumarate (Symbicort 160/4.5mcg -) 1 puff IH BID [facility] Last Admin: 12/24/18 21:58 Dose: 1 puff Docusate Sodium (Colace -) 200 mg PO HS [facility] Last Admin: 12/24/18 21:47 Dose: 200 mg Duloxetine HCl (Cymbalta -) 30 mg PO BID [facility] Last Admin: 12/25/18 09:24 Dose: 30 mg Folic Acid (Folic Acid -) 1 mg PO DAILY [facility] Last Admin: 12/25/18 09:23 Dose: 1 mg Gabapentin (Neurontin -) 300 mg PO BID [facility] Last Admin: 12/25/18 09:24 Dose: 300 mg Azithromycin (Zithromax 500mg Ivpb (Pre-Docked)) 500 mg in 250 mls @ 250 mls/ hr IVPB DAILY [facility] Last Admin: 12/25/18 09:25 Dose: 250 mls/hr Norepinephrine Bitartrate 4, (000 mcg/ Dextrose) 500 mls @ 37.5 mls/hr IV TITR [facility]; Protocol Last Admin: 12/25/18 02:08 Dose: Not Given Sodium Chloride (Normal Saline -) 1,000 mls @ 65 mls/hr IV ASDIR [facility] Last Admin: 12/24/18 16:25 Dose: 65 mls/hr Ceftriaxone Sodium 1 gm/ (Dextrose) 50 mls @ 200 mls/hr IVPB DAILY [facility]; Protocol Stop: 12/26/18 09:59 Insulin Aspart (Novolog Vial Sliding Scale -) 1 vial SQ ACHS [facility]; Protocol Last Admin: 12/25/18 06:26 Dose: Not Given Ipratropium [place] (Atrovent 0.02% Nebulizer -) 1 amp NEB Q6H PRN PRN Reason: ASTHMA Methimazole (Tapazole -) 5 mg PO DAILY [facility] Last Admin: 12/25/18 09:26 Dose: 5 mg Montelukast Sodium (Singulair -) 10 mg PO HS [facility] Last Admin: 12/24/18 21:48 Dose: 10 mg Ondansetron HCl (Zofran Injection) 8 mg IVPB Q6H PRN PRN Reason: NAUSEA Last Admin: 12/23/18 12:41 Dose: 8 mg Oxycodone HCl (Oxycontin -) 40 mg PO BID [facility] Last Admin: 12/25/18 09:23 Dose: 40 mg Pantoprazole Sodium (Protonix -) 20 mg PO BID [facility] Last Admin: 12/25/18 09:24 Dose: 20 mg Polyethylene Glycol (Miralax (For Daily Use) -) 17 gm PO DAILY [facility] Last Admin: 12/24/18 09:15 Dose: 17 gm Prednisone (Deltasone -) 40 mg PO DAILY [facility] Stop: 12/27/18 10:01 Last Admin: 12/25/18 09:24 Dose: 40 mg Senna (Senna -) 1 tab PO BID [facility] Last Admin: 12/25/18 09:24 Dose: 1 tab Sitagliptin Phosphate (Januvia -) 25 mg PO DAILY@0700 [facility] Last Admin: 12/25/18 06:28 Dose: 25 mg Tamsulosin HCl (Flomax -) 0.4 mg PO DAILY@0830 [facility] Last Admin: 12/25/18 08:12 Dose: 0.4 mg - Objective Vital Signs: Vital Signs Temperature 97.9 F 12/25/18 10:00 Pulse Rate 102 H 12/25/18 10:00 Respiratory Rate 19 12/25/18 10:00 Blood Pressure 149/78 12/25/18 10:00 O2 Sat by Pulse Oximetry (%) 99 12/25/18 08:59 Constitutional: Yes: Calm Neck: Yes: Trachea Midline Cardiovascular: Yes: Regular Rate and Rhythm, S1, S2 Respiratory: Yes: Diminished Gastrointestinal: Yes: Normal Bowel Sounds, Soft Neurological: Yes: Alert Labs: CBC, BMP 12/25/18 06:00 12/25/18 06:00 INR, PTT INR 1.81 (0.83-1.09) H 12/22/18 18:46 Problem List - Problems (1) Anemia Assessment/Plan: s/p PRBC h/h improved h/o sickle cell disease Code(s): D64.9 - ANEMIA, UNSPECIFIED (2) GUCCI (acute kidney injury) Assessment/Plan: creatinine improved with IVF- from 5.8 to 1.1 Code(s): N17.9 - ACUTE KIDNEY FAILURE, UNSPECIFIED (3) Pulmonary embolism Assessment/Plan: 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
--- NOTE | 2018-12-25 11:56 | PN ---
Teaching Attending Note Name of Resident: Cheo Matt ATTENDING PHYSICIAN STATEMENT I saw and evaluated the patient. I reviewed the resident's note and discussed the case with the resident. I agree with the resident's findings and plan as documented. SUBJECTIVE: Pt seen and examined here in the ICU. Awake and alert. Generalized malaise and fatigue. Breathing feels a little better. Intake & Output 12/22/18 12/23/18 12/24/18 12/25/18 23:59 23:59 23:59 23:59 Intake Total 5828 5131 980 Output Total 4650 3300 800 Balance 1178 1831 180 Weight 180 lb 184 lb 11 oz 185 lb 195 lb 8.8 oz Last Vital Signs Temp Pulse Resp BP Pulse Ox 97.9 F 102 H 19 149/78 99 12/25/18 10:00 12/25/18 10:00 12/25/18 10:00 12/25/18 10:00 12/25/18 08:59 Active Medications Acetaminophen (Tylenol -) 650 mg PO Q4H PRN PRN Reason: PAIN OR FEVER Albuterol/Ipratropium (Duoneb -) 1 amp NEB RQID [facility] Last Admin: 12/25/18 08:06 Dose: 1 amp Apixaban (Eliquis -) 5 mg PO BID [facility] Last Admin: 12/25/18 09:24 Dose: 5 mg Atenolol (Tenormin -) 25 mg PO DAILY [facility] Last Admin: 12/23/18 10:03 Dose: Not Given Budesonide/Formoterol Fumarate (Symbicort 160/4.5mcg -) 1 puff IH BID [facility] Last Admin: 12/25/18 11:33 Dose: 1 puff Docusate Sodium (Colace -) 200 mg PO HS [facility] Last Admin: 12/24/18 21:47 Dose: 200 mg Duloxetine HCl (Cymbalta -) 30 mg PO BID [facility] Last Admin: 12/25/18 09:24 Dose: 30 mg Folic Acid (Folic Acid -) 1 mg PO DAILY [facility] Last Admin: 12/25/18 09:23 Dose: 1 mg Gabapentin (Neurontin -) 300 mg PO BID [facility] Last Admin: 12/25/18 09:24 Dose: 300 mg Azithromycin (Zithromax 500mg Ivpb (Pre-Docked)) 500 mg in 250 mls @ 250 mls/ hr IVPB DAILY [facility] Last Admin: 12/25/18 09:25 Dose: 250 mls/hr Norepinephrine Bitartrate 4, (000 mcg/ Dextrose) 500 mls @ 37.5 mls/hr IV TITR [facility]; Protocol Last Admin: 12/25/18 02:08 Dose: Not Given Sodium Chloride (Normal Saline -) 1,000 mls @ 65 mls/hr IV ASDIR [facility] Last Admin: 12/24/18 16:25 Dose: 65 mls/hr Ceftriaxone Sodium 1 gm/ (Dextrose) 50 mls @ 200 mls/hr IVPB DAILY [facility]; Protocol Stop: 12/26/18 09:59 Last Admin: 12/25/18 11:33 Dose: 200 mls/hr Insulin Aspart (Novolog Vial Sliding Scale -) 1 vial SQ ACHS [facility]; Protocol Last Admin: 12/25/18 11:38 Dose: Not Given Ipratropium [place] (Atrovent 0.02% Nebulizer -) 1 amp NEB Q6H PRN PRN Reason: ASTHMA Methimazole (Tapazole -) 5 mg PO DAILY [facility] Last Admin: 12/25/18 09:26 Dose: 5 mg Montelukast Sodium (Singulair -) 10 mg PO HS [facility] Last Admin: 12/24/18 21:48 Dose: 10 mg Ondansetron HCl (Zofran Injection) 8 mg IVPB Q6H PRN PRN Reason: NAUSEA Last Admin: 12/23/18 12:41 Dose: 8 mg Oxycodone HCl (Oxycontin -) 40 mg PO BID [facility] Last Admin: 12/25/18 09:23 Dose: 40 mg Pantoprazole Sodium (Protonix -) 20 mg PO BID [facility] Last Admin: 12/25/18 09:24 Dose: 20 mg Polyethylene Glycol (Miralax (For Daily Use) -) 17 gm PO DAILY [facility] Last Admin: 12/25/18 10:00 Dose: 17 gm Prednisone (Deltasone -) 40 mg PO DAILY [facility] Stop: 12/27/18 10:01 Last Admin: 12/25/18 09:24 Dose: 40 mg Senna (Senna -) 1 tab PO BID [facility] Last Admin: 12/25/18 09:24 Dose: 1 tab Sitagliptin Phosphate (Januvia -) 25 mg PO DAILY@0700 [facility] Last Admin: 12/25/18 06:28 Dose: 25 mg Tamsulosin HCl (Flomax -) 0.4 mg PO DAILY@0830 [facility] Last Admin: 12/25/18 08:12 Dose: 0.4 mg Gen: Awake and alert, NAD on NC O2 HEENT: (-) Pallor,PERRL CV: S1, S2, RRR Resp: bibasilar rhonchi, no wheeze Abd: Soft,NT Ext: WWP, trace edema Laboratory Results - last 24 hr 12/24/18 12/24/18 12/24/18 12:11 17:16 17:55 WBC 15.5 H RBC 2.76 L Hgb 7.8 L Hct 23.1 L D MCV 83.7 MCH 28.4 MCHC 33.9 RDW 17.7 H Plt Count 273 MPV 8.2 Absolute Neuts (auto) Neutrophils % Neutrophils % (Manual) Band Neutrophils % Lymphocytes % Lymphocytes % (Manual) Monocytes % Monocytes % (Manual) Eosinophils % Eosinophils % (Manual) Basophils % Basophils % (Manual) Myelocytes % (Man) Promyelocytes % (Man) Blast Cells % (Manual) Nucleated RBC % Metamyelocytes Platelet Estimate Anisocytosis Sodium Potassium Chloride Carbon Dioxide Anion Gap BUN Creatinine Est GFR (CKD-EPI)AfAm Est GFR (CKD-EPI)NonAf POC Glucometer 148 171 Random Glucose Calcium Total Bilirubin AST ALT Alkaline Phosphatase Total Protein Albumin Vitamin B12 12/24/18 12/25/18 12/25/18 21:31 06:00 06:00 WBC 20.0 H RBC 2.71 L Hgb 7.7 L Hct 22.2 L MCV 82.1 MCH 28.6 MCHC 34.8 RDW 17.2 H Plt Count 271 MPV 8.2 Absolute Neuts (auto) 14.9 H Neutrophils % 74.4 Neutrophils % (Manual) 86.3 H Band Neutrophils % 0.0 Lymphocytes % 20.2 D Lymphocytes % (Manual) 8.4 D Monocytes % 4.8 Monocytes % (Manual) 4 Eosinophils % 0.1 D Eosinophils % (Manual) 0.0 D Basophils % 0.5 Basophils % (Manual) 0.0 Myelocytes % (Man) 1 D Promyelocytes % (Man) 0 Blast Cells % (Manual) 0 Nucleated RBC % 3 H Metamyelocytes 0 Platelet Estimate Normal Anisocytosis 1+ Sodium 142 Potassium 3.9 Chloride 111 H Carbon Dioxide 28 Anion Gap 3 L BUN 27.6 H Creatinine 1.1 Est GFR (CKD-EPI)AfAm 57.28 Est GFR (CKD-EPI)NonAf 49.42 POC Glucometer 168 Random Glucose 90 Calcium 8.7 Total Bilirubin 0.5 AST 20 ALT 8 L Alkaline Phosphatase 84 Total Protein 6.4 Albumin 2.7 L Vitamin B12 595 12/25/18 12/25/18 06:16 11:36 WBC RBC Hgb Hct MCV MCH MCHC RDW Plt Count MPV Absolute Neuts (auto) Neutrophils % Neutrophils % (Manual) Band Neutrophils % Lymphocytes % Lymphocytes % (Manual) Monocytes % Monocytes % (Manual) Eosinophils % Eosinophils % (Manual) Basophils % Basophils % (Manual) Myelocytes % (Man) Promyelocytes % (Man) Blast Cells % (Manual) Nucleated RBC % Metamyelocytes Platelet Estimate Anisocytosis Sodium Potassium Chloride Carbon Dioxide Anion Gap BUN Creatinine Est GFR (CKD-EPI)AfAm Est GFR (CKD-EPI)NonAf POC Glucometer 86 91 Random Glucose Calcium Total Bilirubin AST ALT Alkaline Phosphatase Total Protein Albumin Vitamin B12 Problem List - Problems (1) Constipation Code(s): K59.00 - CONSTIPATION, UNSPECIFIED (2) GUCCI (acute kidney injury) Code(s): N17.9 - ACUTE KIDNEY FAILURE, UNSPECIFIED (3) Anemia Code(s): D64.9 - ANEMIA, UNSPECIFIED (4) COPD exacerbation Code(s): J44.1 - CHRONIC OBSTRUCTIVE PULMONARY DISEASE W (ACUTE) EXACERBATION (5) Pneumonia Code(s): J18.9 - PNEUMONIA, UNSPECIFIED ORGANISM Assessment/Plan BD TX O2 to maintain saturation Daily Prednisone IVF PO as tolerated ABX for CAP per ID (ceftriaxone and azithro) Normal transfusion thresholds AC for h/o DVT/PE Glucose control 4W / 4S monitoring Dr Almaguer
--- NOTE | 2018-12-25 12:34 | PN ---
Progress Note, Physician History of Present Illness: Pt seen and examined at bedside. She is awake and alert. - Current Medication List Current Medications: Active Medications Acetaminophen (Tylenol -) 650 mg PO Q4H PRN PRN Reason: PAIN OR FEVER Albuterol/Ipratropium (Duoneb -) 1 amp NEB RQID [facility] Last Admin: 12/25/18 08:06 Dose: 1 amp Apixaban (Eliquis -) 5 mg PO BID [facility] Last Admin: 12/25/18 09:24 Dose: 5 mg Atenolol (Tenormin -) 25 mg PO DAILY [facility] Last Admin: 12/23/18 10:03 Dose: Not Given Budesonide/Formoterol Fumarate (Symbicort 160/4.5mcg -) 1 puff IH BID [facility] Last Admin: 12/25/18 11:33 Dose: 1 puff Docusate Sodium (Colace -) 200 mg PO HS [facility] Last Admin: 12/24/18 21:47 Dose: 200 mg Duloxetine HCl (Cymbalta -) 30 mg PO BID [facility] Last Admin: 12/25/18 09:24 Dose: 30 mg Folic Acid (Folic Acid -) 1 mg PO DAILY [facility] Last Admin: 12/25/18 09:23 Dose: 1 mg Gabapentin (Neurontin -) 300 mg PO BID [facility] Last Admin: 12/25/18 09:24 Dose: 300 mg Azithromycin (Zithromax 500mg Ivpb (Pre-Docked)) 500 mg in 250 mls @ 250 mls/ hr IVPB DAILY [facility] Last Admin: 12/25/18 09:25 Dose: 250 mls/hr Norepinephrine Bitartrate 4, (000 mcg/ Dextrose) 500 mls @ 37.5 mls/hr IV TITR [facility]; Protocol Last Admin: 12/25/18 02:08 Dose: Not Given Sodium Chloride (Normal Saline -) 1,000 mls @ 65 mls/hr IV ASDIR [facility] Last Admin: 12/24/18 16:25 Dose: 65 mls/hr Ceftriaxone Sodium 1 gm/ (Dextrose) 50 mls @ 200 mls/hr IVPB DAILY [facility]; Protocol Stop: 12/26/18 09:59 Last Admin: 12/25/18 11:33 Dose: 200 mls/hr Insulin Aspart (Novolog Vial Sliding Scale -) 1 vial SQ ACHS [facility]; Protocol Last Admin: 12/25/18 11:38 Dose: Not Given Ipratropium [place] (Atrovent 0.02% Nebulizer -) 1 amp NEB Q6H PRN PRN Reason: ASTHMA Methimazole (Tapazole -) 5 mg PO DAILY [facility] Last Admin: 12/25/18 09:26 Dose: 5 mg Montelukast Sodium (Singulair -) 10 mg PO HS [facility] Last Admin: 12/24/18 21:48 Dose: 10 mg Ondansetron HCl (Zofran Injection) 8 mg IVPB Q6H PRN PRN Reason: NAUSEA Last Admin: 12/23/18 12:41 Dose: 8 mg Oxycodone HCl (Oxycontin -) 40 mg PO BID [facility] Last Admin: 12/25/18 09:23 Dose: 40 mg Pantoprazole Sodium (Protonix -) 20 mg PO BID [facility] Last Admin: 12/25/18 09:24 Dose: 20 mg Polyethylene Glycol (Miralax (For Daily Use) -) 17 gm PO DAILY [facility] Last Admin: 12/25/18 10:00 Dose: 17 gm Prednisone (Deltasone -) 40 mg PO DAILY [facility] Stop: 12/27/18 10:01 Last Admin: 12/25/18 09:24 Dose: 40 mg Senna (Senna -) 1 tab PO BID [facility] Last Admin: 12/25/18 09:24 Dose: 1 tab Sitagliptin Phosphate (Januvia -) 25 mg PO DAILY@0700 [facility] Last Admin: 12/25/18 06:28 Dose: 25 mg Tamsulosin HCl (Flomax -) 0.4 mg PO DAILY@0830 [facility] Last Admin: 12/25/18 08:12 Dose: 0.4 mg - Objective Vital Signs: Vital Signs Temperature 97.9 F 12/25/18 10:00 Pulse Rate 106 H 12/25/18 12:00 Respiratory Rate 20 12/25/18 12:00 Blood Pressure 150/74 12/25/18 12:00 O2 Sat by Pulse Oximetry (%) 99 12/25/18 08:59 Constitutional: Yes: Calm Eyes: Yes: Conjunctiva Clear HENT: Yes: Atraumatic Neck: Yes: Supple Cardiovascular: Yes: S1, S2 Respiratory: Yes: CTA Bilaterally Gastrointestinal: Yes: Soft Genitourinary: Yes: WNL Musculoskeletal: Yes: WNL Edema: No Neurological: Yes: Oriented Psychiatric: Yes: Oriented Labs: CBC, BMP 12/25/18 06:00 12/25/18 06:00 INR, PTT INR 1.81 (0.83-1.09) H 12/22/18 18:46 Problem List - Problems (1) GUCCI (acute kidney injury) Code(s): N17.9 - ACUTE KIDNEY FAILURE, UNSPECIFIED Assessment/Plan Current Medications Generic Name Dose Route Start Last Admin Trade Name Freq PRN Reason Stop Dose Admin Acetaminophen 650 mg 12/22/18 22:25 Tylenol - PO Q4H PRN PAIN OR FEVER Albuterol/Ipratropium 1 amp 12/24/18 16:00 12/25/18 08:06 Duoneb - NEB 1 amp RQID [facility] Administration Apixaban 5 mg 12/23/18 10:00 12/25/18 09:24 Eliquis - PO 5 mg BID [facility] Administration Atenolol 25 mg 12/23/18 10:00 12/23/18 10:03 Tenormin - PO Not Given DAILY [facility] Budesonide/Formoterol Fumarate 1 puff 12/23/18 10:00 12/25/18 11:33 Symbicort 160/4.5mcg - IH 1 puff BID [facility] Administration Docusate Sodium 200 mg 12/23/18 22:00 12/24/18 21:47 Colace - PO 200 mg HS [facility] Administration Duloxetine HCl 30 mg 12/23/18 10:00 12/25/18 09:24 Cymbalta - PO 30 mg BID [facility] Administration Folic Acid 1 mg 12/23/18 10:00 12/25/18 09:23 Folic Acid - PO 1 mg DAILY [facility] Administration Gabapentin 300 mg 12/23/18 10:00 12/25/18 09:24 Neurontin - PO 300 mg BID [facility] Administration Azithromycin 500 mg in 250 mls @ 250 mls/hr 12/23/18 10:00 12/25/18 09:25 Zithromax 500mg Ivpb (Pre-Docked) IVPB 250 mls/hr DAILY [facility] Administration Norepinephrine Bitartrate 4, 500 mls @ 37.5 mls/hr 12/23/18 01:45 12/25/18 02 :08 000 mcg/ Dextrose IV Not Given TITR [facility] Protocol 5 MCG/MIN Sodium Chloride 1,000 mls @ 65 mls/hr 12/24/18 15:59 12/24/18 16:25 Normal Saline - IV 65 mls/hr ASDIR [facility] Administration Ceftriaxone Sodium 1 gm/ 50 mls @ 200 mls/hr 12/25/18 10:00 12/25/18 11:33 Dextrose IVPB 12/26/18 09:59 200 mls/hr DAILY [facility] Administration Protocol Insulin Aspart 1 vial 12/23/18 07:00 12/25/18 11:38 Novolog Vial Sliding Scale - SQ Not Given ACHS [facility] Protocol Ipratropium [place] 1 amp 12/24/18 18:45 Atrovent 0.02% Nebulizer - NEB Q6H PRN ASTHMA Methimazole 5 mg 12/25/18 10:00 12/25/18 09:26 Tapazole - PO 5 mg DAILY [facility] Administration Montelukast Sodium 10 mg 12/23/18 22:00 12/24/18 21:48 Singulair - PO 10 mg HS [facility] Administration Ondansetron HCl 8 mg 12/23/18 09:15 12/23/18 12:41 Zofran Injection IVPB 8 mg Q6H PRN Administration NAUSEA Oxycodone HCl 40 mg 12/23/18 22:45 12/25/18 09:23 Oxycontin - PO 40 mg BID [facility] Administration Pantoprazole Sodium 20 mg 12/23/18 10:00 12/25/18 09:24 Protonix - PO 20 mg BID [facility] Administration Polyethylene Glycol 17 gm 12/23/18 10:00 12/25/18 10:00 Miralax (For Daily Use) - PO 17 gm DAILY [facility] Administration Prednisone 40 mg 12/23/18 10:00 12/25/18 09:24 Deltasone - PO 12/27/18 10:01 40 mg DAILY [facility] Administration Senna 1 tab 12/23/18 10:00 12/25/18 09:24 Senna - PO 1 tab BID [facility] Administration Sitagliptin Phosphate 25 mg 12/25/18 07:00 12/25/18 06:28 Januvia - PO 25 mg DAILY@0700 [facility] Administration Tamsulosin HCl 0.4 mg 12/23/18 08:30 12/25/18 08:12 Flomax - PO 0.4 mg DAILY@0830 [facility] Administration Impression 1. GUCCI 2. sickle cell disease 3. copd 4. dvt 5. dm Plan - renal function improved - can d/c fluids - bp stable - pt voided - ultrasound reviewed - avoid nsaids
[2018-12-25] MEDS: ATENOLOL 25 MG TABLET (FP) PO SCH (12:57)
--- NOTE | 2018-12-25 13:53 | PN ---
Physical Exam: SUBJECTIVE: Patient seen and examined. Complaining of cough and stomach pains. She states her breathing is feeling better. Denies any chest pain. She last had a bowel movement last night. No events overnight. OBJECTIVE: Vital Signs Period Temp Pulse Resp BP Sys/Mendez Pulse Ox Last 24 Hr 97.6 F-99.8 F 91-106 15-26 129-150/59-99 99-99 GENERAL: The patient is awake, alert, and fully oriented, in no acute distress. HEAD: Normal with no signs of trauma. EYES: EOMI, no scleral icterus ENT: moist mucous membranes NECK: Trachea midline. Right IJ in place. LUNGS: Rhonchi bilaterally, no wheezing. no accessory muscle use HEART: Regular rate and rhythm, S1, S2 without murmur, rub or gallop. ABDOMEN: Soft, nontender, nondistended, normoactive bowel sounds, no guarding EXTREMITIES: 2+ pulses, warm, well-perfused, no edema. NEUROLOGICAL: Normal speech, gait not observed. PSYCH: Normal mood, normal affect. Laboratory Results - last 24 hr 12/24/18 12/24/18 12/24/18 17:16 17:55 21:31 WBC 15.5 H RBC 2.76 L Hgb 7.8 L Hct 23.1 L D MCV 83.7 MCH 28.4 MCHC 33.9 RDW 17.7 H Plt Count 273 MPV 8.2 Absolute Neuts (auto) Neutrophils % Neutrophils % (Manual) Band Neutrophils % Lymphocytes % Lymphocytes % (Manual) Monocytes % Monocytes % (Manual) Eosinophils % Eosinophils % (Manual) Basophils % Basophils % (Manual) Myelocytes % (Man) Promyelocytes % (Man) Blast Cells % (Manual) Nucleated RBC % Metamyelocytes Platelet Estimate Anisocytosis Sodium Potassium Chloride Carbon Dioxide Anion Gap BUN Creatinine Est GFR (CKD-EPI)AfAm Est GFR (CKD-EPI)NonAf POC Glucometer 171 168 Random Glucose Calcium Total Bilirubin AST ALT Alkaline Phosphatase Total Protein Albumin Vitamin B12 12/25/18 12/25/18 12/25/18 06:00 06:00 06:16 WBC 20.0 H RBC 2.71 L Hgb 7.7 L Hct 22.2 L MCV 82.1 MCH 28.6 MCHC 34.8 RDW 17.2 H Plt Count 271 MPV 8.2 Absolute Neuts (auto) 14.9 H Neutrophils % 74.4 Neutrophils % (Manual) 86.3 H Band Neutrophils % 0.0 Lymphocytes % 20.2 D Lymphocytes % (Manual) 8.4 D Monocytes % 4.8 Monocytes % (Manual) 4 Eosinophils % 0.1 D Eosinophils % (Manual) 0.0 D Basophils % 0.5 Basophils % (Manual) 0.0 Myelocytes % (Man) 1 D Promyelocytes % (Man) 0 Blast Cells % (Manual) 0 Nucleated RBC % 3 H Metamyelocytes 0 Platelet Estimate Normal Anisocytosis 1+ Sodium 142 Potassium 3.9 Chloride 111 H Carbon Dioxide 28 Anion Gap 3 L BUN 27.6 H Creatinine 1.1 Est GFR (CKD-EPI)AfAm 57.28 Est GFR (CKD-EPI)NonAf 49.42 POC Glucometer 86 Random Glucose 90 Calcium 8.7 Total Bilirubin 0.5 AST 20 ALT 8 L Alkaline Phosphatase 84 Total Protein 6.4 Albumin 2.7 L Vitamin B12 595 12/25/18 11:36 WBC RBC Hgb Hct MCV MCH MCHC RDW Plt Count MPV Absolute Neuts (auto) Neutrophils % Neutrophils % (Manual) Band Neutrophils % Lymphocytes % Lymphocytes % (Manual) Monocytes % Monocytes % (Manual) Eosinophils % Eosinophils % (Manual) Basophils % Basophils % (Manual) Myelocytes % (Man) Promyelocytes % (Man) Blast Cells % (Manual) Nucleated RBC % Metamyelocytes Platelet Estimate Anisocytosis Sodium Potassium Chloride Carbon Dioxide Anion Gap BUN Creatinine Est GFR (CKD-EPI)AfAm Est GFR (CKD-EPI)NonAf POC Glucometer 91 Random Glucose Calcium Total Bilirubin AST ALT Alkaline Phosphatase Total Protein Albumin Vitamin B12 Active Medications Generic Name Dose Route Start Last Admin Trade Name Freq PRN Reason Stop Dose Admin Acetaminophen 650 mg 12/22/18 22:25 Tylenol - PO Q4H PRN PAIN OR FEVER Albuterol/Ipratropium 1 amp 12/24/18 16:00 12/25/18 08:06 Duoneb - NEB 1 amp RQID SORAYA Administration Apixaban 5 mg 12/23/18 10:00 12/25/18 09:24 Eliquis - PO 5 mg BID SORAYA Administration Atenolol 25 mg 12/23/18 10:00 12/25/18 12:57 Tenormin - PO 25 mg DAILY SORAYA Administration Budesonide/Formoterol Fumarate 1 puff 12/23/18 10:00 11/18/19 11:33 Symbicort 160/4.5mcg - IH 1 puff BID SORAYA Administration Docusate Sodium 200 mg 12/23/18 22:00 12/24/18 21:47 Colace - PO 200 mg HS SORAYA Administration Duloxetine HCl 30 mg 12/23/18 10:00 12/25/18 09:24 Cymbalta - PO 30 mg BID SORAYA Administration Folic Acid 1 mg 12/23/18 10:00 12/25/18 09:23 Folic Acid - PO 1 mg DAILY SORAYA Administration Gabapentin 300 mg 12/23/18 10:00 12/25/18 09:24 Neurontin - PO 300 mg BID SORAYA Administration Azithromycin 500 mg in 250 mls @ 250 mls/hr 12/23/18 10:00 12/25/18 09:25 Zithromax 500mg Ivpb (Pre-Docked) IVPB 250 mls/hr DAILY SORAYA Administration Norepinephrine Bitartrate 4, 500 mls @ 37.5 mls/hr 12/23/18 01:45 12/25/18 02 :08 000 mcg/ Dextrose IV Not Given TITR SORAYA Protocol 5 MCG/MIN Ceftriaxone Sodium 1 gm/ 50 mls @ 200 mls/hr 12/25/18 10:00 12/25/18 11:33 Dextrose IVPB 12/26/18 09:59 200 mls/hr DAILY SORAYA Administration Protocol Insulin Aspart 1 vial 12/23/18 07:00 12/25/18 11:38 Novolog Vial Sliding Scale - SQ Not Given ACHS SORAYA Protocol Ipratropium [place] 1 amp 12/24/18 18:45 Atrovent 0.02% Nebulizer - NEB Q6H PRN ASTHMA Methimazole 5 mg 12/25/18 10:00 12/25/18 09:26 Tapazole - PO 5 mg DAILY SORAYA Administration Montelukast Sodium 10 mg 12/23/18 22:00 12/24/18 21:48 Singulair - PO 10 mg HS SORAYA Administration Ondansetron HCl 8 mg 12/23/18 09:15 12/23/18 12:41 Zofran Injection IVPB 8 mg Q6H PRN Administration NAUSEA Oxycodone HCl 40 mg 12/23/18 22:45 12/25/18 09:23 Oxycontin - PO 40 mg BID SORAYA Administration Pantoprazole Sodium 20 mg 12/23/18 10:00 12/25/18 09:24 Protonix - PO 20 mg BID SORAYA Administration Polyethylene Glycol 17 gm 12/23/18 10:00 12/25/18 10:00 Miralax (For Daily Use) - PO 17 gm DAILY SORAYA Administration Prednisone 40 mg 12/23/18 10:00 12/25/18 09:24 Deltasone - PO 12/27/18 10:01 40 mg DAILY SORAYA Administration Senna 1 tab 12/23/18 10:00 12/25/18 09:24 Senna - PO 1 tab BID SORAYA Administration Sitagliptin Phosphate 25 mg 12/25/18 07:00 12/25/18 06:28 Januvia - PO 25 mg DAILY@0700 SORAYA Administration Tamsulosin HCl 0.4 mg 12/23/18 08:30 12/25/18 08:12 Flomax - PO 0.4 mg DAILY@0830 SORAYA Administration ASSESSMENT/PLAN: 73 y/o/f with history of COPD on home oxygen, Asthma, PE/DVT (on Apixaban), prior nephrolithiasis, diabetes mellitus type 2, sickle cell disease, chronic back pain presents with complaint of shortness of breath, with associated chest pain. Admitted to ICU for severe sepsis 2/2 to pneumonia and GUCCI. Neurologic -Currently, patient is awake, alert, oriented. No acute distress. -CT head revealed no acute intracranial pathology. -Continue home Duloxetine Cardiac -Troponin negative x2 -Cardiac monitoring while in ICU -Continue home Tenormin dose -patient no longer on pressors Pulmonary -Currently patient saturating well on 2L nasal canula -DuoNebs QID standing -Continue Singulair -Continue Symbicort -Encourage incentive spirometer -Prednisone 3 of 5 doses given Gastrointestinal -Patient denies abdominal pain, nausea, vomiting, melena, hematochezia -Sodium controlled diet -Senna PO BID, Miralax daily Infectious disease -CXR on 12/25 shows continued congestive, atelectatic changes, worse at the left base -Will continue IV fluid hydration -Patient received Vancomycin, Ceftriaxone, Azithromycin in ED. -Continue Ceftriaxone, Azithromycin -Flu, Legionella, blood, urine cx negative -ID recs appreciated Nephrologic -GUCCI likely pre-renal etiology, secondary to septic shock. Resolving now -Continue IV fluid hydration -Renal function improving -Nephro recs appreciated -Avendano discontinued -Renal, Bladder U/S without acute pathology Endocrine -Insulin sliding scale ACHS -Fingerstick blood glucose ACHS -Started on Sitagliptin 25mg -Started on Tapazole as per Dr. Wright -TSH 0.04, Free T4 0.86 Hematologic -History of sickle cell disease; hemoglobin at baseline from prior admission. -Follow Hgb/ Hct -Continue home Eliquis FEN -monitor and replete lytes as needed -Sodium controlled diet Prophylaxis -Continue home Eliquis Disposition: -Stable for transfer to med surg Visit type - Emergency Visit Emergency Visit: Yes ED Registration Date: 12/22/18 Care time: The patient presented to the Emergency Department on the above date and was hospitalized for further evaluation of their emergent condition. - New Patient This patient is new to me today: Yes Date on this admission: 12/25/18 - Critical Care Critical Care patient: Yes Total Critical Care Time (in minutes): 36 Critical Care Statement: The care of this patient involved high complexity decision making to prevent further life threatening deterioration of the patient 's condition and/or to evaluate & treat vital organ system(s) failure or risk of failure. ATTENDING PHYSICIAN STATEMENT I saw and evaluated the patient. I reviewed the resident's note and discussed the case with the resident. I agree with the resident's findings and plan as documented. SUBJECTIVE: OBJECTIVE: ASSESSMENT AND PLAN:
--- NOTE | 2018-12-25 14:44 | ECHO ---
Name: SAY ROSARIO Exam:Adult Echocardiogram Study Date: 12/25/2018 10:53 AM Age: 73 yrs Reason For Study: evaluate cardiac function Height: 65 in Weight: 180 lb BSA: 1.9 m2 MMode/2D Measurements & Calculations IVSd: 0.80 cm Ao root diam: 2.5 cm LVIDd: 5.3 cm LA dimension: 3.4 cm LVIDs: 2.5 cm ACS: 2.0 cm LVPWd: 0.98 cm IVSs: 1.2 cm LVPWs: 1.2 cm EDV(Teich): 133.6 ml ESV(Teich): 23.1 ml Doppler Measurements & Calculations MV E max monico: 127.2 cm/sec Ao V2 max: 144.4 cm/sec MV A max monico: 105.0 cm/sec Ao max P.3 mmHg MV E/A: 1.2 Ao V2 mean: 107.9 cm/sec Ao mean P.0 mmHg Ao V2 VTI: 28.2 cm MR max monico: 553.1 cm/sec TR max monico: 314.2 cm/sec MR max P.5 mmHg TR max P.5 mmHg PI end-d monico: 177.2 cm/sec Med Peak E' Monico: 9.4 cm/sec Med E/e': 13.5 Lat Peak E' Monico: 12.0 cm/sec Lat E/e': 10.6 Procedure A complete two-dimensional transthoracic echocardiogram was performed (2D, M-mode, Doppler and color flow Doppler). Technically limites study. Left Ventricle The left ventricle is normal in size. Left ventricular systolic function is normal. Ejection Fraction = >70%. No regional wall motion abnormalities noted. Right Ventricle The right ventricle is not well visualized. Atria The left atrial size is normal. Right atrium not well visualized. Mitral Valve There is mild mitral annular calcification. There is mild mitral regurgitation. Tricuspid Valve The tricuspid valve is not well visualized. Aortic Valve There is mild aortic sclerosis.;. Mild aortic regurgitation. Pulmonic Valve The pulmonic valve is not well visualized. Great Vessels The aortic root is normal size. Pericardium/Pleura Trivial pericardial effusion not hemodynamically significant. Interpretation Summary Technically limites study The left ventricle is normal in size. Left ventricular systolic function is normal. No regional wall motion abnormalities noted. Ejection Fraction = >70%. The right ventricle is not well visualized. The left atrial size is normal. Right atrium not well visualized. There is mild mitral annular calcification. There is mild mitral regurgitation. There is mild aortic sclerosis. Mild aortic regurgitation. Trivial pericardial effusion not hemodynamically significant When compared to study dated 06/27/18, likely no significant changes Paulino Georges MD 12/25/2018 02:44 PM
[2018-12-25] MEDS ORDERED: NOREPINEPHRINE BITARTRATE 4,000 MCG in DEXTROSE 5%-WATER - 496 ML IV SCH (21:33)
[2018-12-25] MEDS ORDERED: IPRATROPIUM BR 0.02% 0.5 MG/2.5 ML VIAL.NEB. NEB PRN (21:33)
[2018-12-25] MEDS ORDERED: ONDANSETRON 4 MG/2 ML VIAL IVPB PRN (21:33)
--- NOTE | 2018-12-25 23:08 | PN ---
Progress Note, Physician Chief Complaint: comfortable no complaint - Current Medication List Current Medications: Active Medications Acetaminophen (Tylenol -) 650 mg PO Q4H PRN PRN Reason: PAIN OR FEVER Albuterol/Ipratropium (Duoneb -) 1 amp NEB RQID SORAYA Apixaban (Eliquis -) 5 mg PO BID [facility] Atenolol (Tenormin -) 25 mg PO DAILY [facility] Budesonide/Formoterol Fumarate (Symbicort 160/4.5mcg -) 1 puff IH BID [facility] Docusate Sodium (Colace -) 200 mg PO HS [facility] Duloxetine HCl (Cymbalta -) 30 mg PO BID [facility] Folic Acid (Folic Acid -) 1 mg PO DAILY [facility] Gabapentin (Neurontin -) 300 mg PO BID [facility] Azithromycin (Zithromax 500mg Ivpb (Pre-Docked)) 500 mg in 250 mls @ 250 mls/ hr IVPB DAILY [facility] Ceftriaxone Sodium 1 gm/ (Dextrose) 50 mls @ 200 mls/hr IVPB DAILY [facility]; Protocol Norepinephrine Bitartrate 4, (000 mcg/ Dextrose) 500 mls @ 37.5 mls/hr IV TITR SORAYA; Protocol Insulin Aspart (Novolog Vial Sliding Scale -) 1 vial SQ ACHS SORAYA; Protocol Ipratropium [place] [address] (Atrovent 0.02% Nebulizer -) 1 amp NEB Q6H PRN PRN Reason: ASTHMA Methimazole (Tapazole -) 5 mg PO DAILY [facility] Montelukast Sodium (Singulair -) 10 mg PO HS [facility] Ondansetron HCl (Zofran Injection) 8 mg IVPB Q6H PRN PRN Reason: NAUSEA Oxycodone HCl (Oxycontin -) 40 mg PO BID [facility] Pantoprazole Sodium (Protonix -) 20 mg PO BID [facility] Polyethylene Glycol (Miralax (For Daily Use) -) 17 gm PO DAILY [facility] Prednisone (Deltasone -) 40 mg PO DAILY [facility] Stop: 12/27/18 10:01 Senna (Senna -) 1 tab PO BID [facility] Sitagliptin Phosphate (Januvia -) 25 mg PO DAILY@0700 [facility] Tamsulosin HCl (Flomax -) 0.4 mg PO DAILY@0830 [facility] - Objective Vital Signs: Vital Signs Temperature 99.9 F H 12/25/18 18:21 Pulse Rate 101 H 12/25/18 19:07 Respiratory Rate 20 11/18/19 19:07 Blood Pressure 142/81 12/25/18 19:07 O2 Sat by Pulse Oximetry (%) 99 12/25/18 08:59 Constitutional: Yes: Calm Eyes: Yes: EOM Intact HENT: Yes: Normocephalic Neck: Yes: Trachea Midline Cardiovascular: Yes: Tachycardia Respiratory: Yes: CTA Bilaterally Gastrointestinal: Yes: WNL ...Rectal Exam: Yes: Deferred Genitourinary: Yes: WNL Musculoskeletal: Yes: WNL Extremities: Yes: WNL Edema: No Neurological: Yes: Alert, Oriented Labs: CBC, BMP 12/25/18 06:00 12/25/18 06:00 INR, PTT INR 1.81 (0.83-1.09) H 12/22/18 18:46 Problem List - Problems (1) Allergy to multiple antibiotics Code(s): Z88.1 - ALLERGY STATUS TO OTHER ANTIBIOTIC AGENTS STATUS (2) Chronic back pain Code(s): M54.9 - DORSALGIA, UNSPECIFIED; G89.29 - OTHER CHRONIC PAIN (3) Constipation Code(s): K59.00 - CONSTIPATION, UNSPECIFIED (4) GERD (gastroesophageal reflux disease) Code(s): K21.9 - GASTRO-ESOPHAGEAL REFLUX DISEASE WITHOUT ESOPHAGITIS (5) Hyperthyroidism Code(s): E05.90 - THYROTOXICOSIS, UNSP WITHOUT THYROTOXIC CRISIS OR STORM (6) Status post fall Code(s): Z91.81 - HISTORY OF FALLING (7) GUCCI (acute kidney injury) Code(s): N17.9 - ACUTE KIDNEY FAILURE, UNSPECIFIED Assessment/Plan Current Active Problems Allergy to multiple antibiotics (Acute) Back pain (Acute) Chronic back pain (Acute) Constipation (Acute) GERD (gastroesophageal reflux disease) (Acute) Hyperthyroidism (Acute) Hypotension (Acute) Status post fall (Acute) Abnormal Lab Results 12/25/18 12/25/18 06:00 06:00 WBC 20.0 H RBC 2.71 L Hgb 7.7 L Hct 22.2 L RDW 17.2 H Absolute Neuts (auto) 14.9 H Neutrophils % (Manual) 86.3 H Nucleated RBC % 3 H Chloride 111 H Anion Gap 3 L BUN 27.6 H ALT 8 L Albumin 2.7 L Laboratory Results - last 24 hr 12/25/18 12/25/18 12/25/18 06:00 06:00 06:16 WBC 20.0 H RBC 2.71 L Hgb 7.7 L Hct 22.2 L MCV 82.1 MCH 28.6 MCHC 34.8 RDW 17.2 H Plt Count 271 MPV 8.2 Absolute Neuts (auto) 14.9 H Neutrophils % 74.4 Neutrophils % (Manual) 86.3 H Band Neutrophils % 0.0 Lymphocytes % 20.2 D Lymphocytes % (Manual) 8.4 D Monocytes % 4.8 Monocytes % (Manual) 4 Eosinophils % 0.1 D Eosinophils % (Manual) 0.0 D Basophils % 0.5 Basophils % (Manual) 0.0 Myelocytes % (Man) 1 D Promyelocytes % (Man) 0 Blast Cells % (Manual) 0 Nucleated RBC % 3 H Metamyelocytes 0 Platelet Estimate Normal Anisocytosis 1+ Sodium 142 Potassium 3.9 Chloride 111 H Carbon Dioxide 28 Anion Gap 3 L BUN 27.6 H Creatinine 1.1 Est GFR (CKD-EPI)AfAm 57.28 Est GFR (CKD-EPI)NonAf 49.42 POC Glucometer 86 Random Glucose 90 Calcium 8.7 Total Bilirubin 0.5 AST 20 ALT 8 L Alkaline Phosphatase 84 Total Protein 6.4 Albumin 2.7 L Vitamin B12 595 12/25/18 12/25/18 12/25/18 11:36 16:15 22:10 WBC RBC Hgb Hct MCV MCH MCHC RDW Plt Count MPV Absolute Neuts (auto) Neutrophils % Neutrophils % (Manual) Band Neutrophils % Lymphocytes % Lymphocytes % (Manual) Monocytes % Monocytes % (Manual) Eosinophils % Eosinophils % (Manual) Basophils % Basophils % (Manual) Myelocytes % (Man) Promyelocytes % (Man) Blast Cells % (Manual) Nucleated RBC % Metamyelocytes Platelet Estimate Anisocytosis Sodium Potassium Chloride Carbon Dioxide Anion Gap BUN Creatinine Est GFR (CKD-EPI)AfAm Est GFR (CKD-EPI)NonAf POC Glucometer 91 108 123 Random Glucose Calcium Total Bilirubin AST ALT Alkaline Phosphatase Total Protein Albumin Vitamin B12 Laboratory Tests 12/24/18 12/24/18 06:00 06:00 TSH 0.04 L Free T4 0.86 plan: continue tapazole to normalize symptoms and tsh tot t3 pending
[2018-12-25] MEDS: oxyCODONE HCL 20 MG SUSTAINED ACTING TABLET PO SCH (23:52)
[2018-12-25] MEDS: MONTELUKAST NA 10 MG TABLET PO SCH (23:53)
[2018-12-25] MEDS: DOCUSATE SODIUM 100 MG CAPSULE (FP) PO SCH (23:56)
[2018-12-26] MEDS: ACETAMINOPHEN 325 MG TABLET (FP) PO PRN (06:16)
[2018-12-26] MEDS: INSULIN SLIDING SCALE (NOVOLOG) 1 VIAL SQ SCH ×4 (07:05→21:59)
--- NOTE | 2018-12-26 09:08 | PN ---
Progress Note, Physician - Current Medication List Current Medications: Active Medications Acetaminophen (Tylenol -) 650 mg PO Q4H PRN PRN Reason: PAIN OR FEVER Last Admin: 12/26/18 06:16 Dose: 650 mg Albuterol/Ipratropium (Duoneb -) 1 amp NEB RQID [facility] Apixaban (Eliquis -) 5 mg PO BID [facility] Last Admin: 12/25/18 23:54 Dose: 5 mg Atenolol (Tenormin -) 25 mg PO DAILY [facility] Budesonide/Formoterol Fumarate (Symbicort 160/4.5mcg -) 1 puff IH BID [facility] Last Admin: 12/25/18 23:50 Dose: 1 puff Docusate Sodium (Colace -) 200 mg PO HS [facility] Last Admin: 12/25/18 23:56 Dose: 200 mg Duloxetine HCl (Cymbalta -) 30 mg PO BID [facility] Last Admin: 12/25/18 23:54 Dose: 30 mg Folic Acid (Folic Acid -) 1 mg PO DAILY [facility] Gabapentin (Neurontin -) 300 mg PO BID [facility] Last Admin: 12/25/18 23:54 Dose: 300 mg Azithromycin (Zithromax 500mg Ivpb (Pre-Docked)) 500 mg in 250 mls @ 250 mls/ hr IVPB DAILY [facility] Ceftriaxone Sodium 1 gm/ (Dextrose) 50 mls @ 200 mls/hr IVPB DAILY [facility]; Protocol Insulin Aspart (Novolog Vial Sliding Scale -) 1 vial SQ ACHS [facility]; Protocol Last Admin: 12/26/18 07:05 Dose: Not Given Ipratropium [place] (Atrovent 0.02% Nebulizer -) 1 amp NEB Q6H PRN PRN Reason: ASTHMA Last Admin: 12/26/18 05:00 Dose: 1 amp Methimazole (Tapazole -) 5 mg PO DAILY [facility] Montelukast Sodium (Singulair -) 10 mg PO HS [facility] Last Admin: 12/25/18 23:53 Dose: 10 mg Ondansetron HCl (Zofran Injection) 8 mg IVPB Q6H PRN PRN Reason: NAUSEA Oxycodone HCl (Oxycontin -) 40 mg PO BID [facility] Last Admin: 12/25/18 23:52 Dose: 40 mg Pantoprazole Sodium (Protonix -) 20 mg PO BID [facility] Last Admin: 12/25/18 23:53 Dose: 20 mg Polyethylene Glycol (Miralax (For Daily Use) -) 17 gm PO DAILY [facility] Prednisone (Deltasone -) 40 mg PO DAILY [facility] Stop: 12/27/18 10:01 Senna (Senna -) 1 tab PO BID [facility] Last Admin: 12/25/18 23:54 Dose: 1 tab Sitagliptin Phosphate (Januvia -) 25 mg PO DAILY@0700 [facility] Last Admin: 12/26/18 07:07 Dose: 25 mg Tamsulosin HCl (Flomax -) 0.4 mg PO DAILY@0830 [facility] - Objective Vital Signs: Vital Signs Temperature 100.3 F H 12/26/18 05:19 Pulse Rate 103 H 12/26/18 05:19 Respiratory Rate 20 12/26/18 05:19 Blood Pressure 158/77 12/26/18 05:19 O2 Sat by Pulse Oximetry (%) 100 12/25/18 21:00 Cardiovascular: Yes: S1, S2 Respiratory: Yes: Regular, CTA Bilaterally Gastrointestinal: Yes: Normal Bowel Sounds, Soft. No: Tenderness Labs: CBC, BMP 12/25/18 06:00 12/25/18 06:00 INR, PTT INR 1.81 (0.83-1.09) H 12/22/18 18:46 Assessment/Plan - Problems (1) Sickle cell anemia with pain Assessment/Plan: -pain management -Hem consult Problems reviewed: Yes Code(s): D57.00 - HB-SS DISEASE WITH CRISIS, UNSPECIFIED (2) HTN (hypertension) Assessment/Plan: -Hold BP meds -Monitor off levophed Problems reviewed: Yes Code(s): I10 - ESSENTIAL (PRIMARY) HYPERTENSION Qualifiers: Hypertension type: essential hypertension Qualified Code(s): I10 - Essential (primary) hypertension (3) Nausea & vomiting Assessment/Plan: -resolved Problems reviewed: Yes Code(s): R11.2 - NAUSEA WITH VOMITING, UNSPECIFIED Qualifiers: Vomiting type: unspecified Vomiting Intractability: non-intractable Qualified Code(s): R11.2 - Nausea with vomiting, unspecified (4) COPD exacerbation Assessment/Plan: -ID on board -Pulmonary consult -On steroids -IV Rocephin/zithromax -influenza screen-negative -legionella antigen-negative -Repeat CXR reviewed -Nasal O2 to keep SpO2>90% -bronchodilators Problems reviewed: Yes Code(s): J44.1 - CHRONIC OBSTRUCTIVE PULMONARY DISEASE W (ACUTE) EXACERBATION (5) Sepsis Assessment/Plan: -T max 100.3 -ID on board -Pulmonary consult -IV Rocephin/zithromax -influenza screen-negative -legionella antigen-negative -Repeat CXR reviewed -Leukocytosis =20 -BC negative Problems reviewed: Yes Code(s): A41.9 - SEPSIS, UNSPECIFIED ORGANISM (6) GUCCI (acute kidney injury) Assessment/Plan: -improved -nephrology on board -off IVF -monitor trend -avoid nephrotoxic drugs -Renal/bladder US results pending Problems reviewed: Yes Code(s): N17.9 - ACUTE KIDNEY FAILURE, UNSPECIFIED (7) Anemia Assessment/Plan: -S/P 1 unit PRBC -Monitor trend -check stool OB and B 12 -Thyroid profile indicative for hyperthyroidism -Iron profile normal Problems reviewed: Yes Code(s): D64.9 - ANEMIA, UNSPECIFIED (8) Hyperthyroidism Assessment/Plan: -start methimazole 5 mg po daily -endocrine consult Problems reviewed: Yes Code(s): E05.90 - THYROTOXICOSIS, UNSP WITHOUT THYROTOXIC CRISIS OR STORM
[2018-12-26] MEDS: ALBUTEROL SO4 2.5/IPRATROPIUM 0.5 INH SOL 3 ML VIAL.NEB. NEB SCH ×4 (09:11→21:05)
[2018-12-26] MEDS ORDERED: PT OWN MED DRAWER 7, Y5N ONE ×2 (09:32→21:21)
[2018-12-26] MEDS ORDERED: DEXTROSE 5%-WATER - 50 ML IVPB ONE (09:33)
[2018-12-26] MEDS ORDERED: cefTRIAXone SODIUM 1 GM VIAL ONE (09:33)
[2018-12-26] MEDS: TAMSULOSIN HCL 0.4 MG CAP PO SCH (09:39)
[2018-12-26] MEDS: FOLIC ACID 1 MG TABLET (FP) PO SCH (09:41)
[2018-12-26] MEDS: GABAPENTIN 300 MG CAPSULE (FP) PO SCH ×2 (09:41→21:59)
[2018-12-26] MEDS: ATENOLOL 25 MG TABLET (FP) PO SCH (09:42)
[2018-12-26] MEDS: PANTOPRAZOLE 20 MG TABLET (FP) PO SCH ×2 (09:42→22:02)
[2018-12-26] MEDS: APIXABAN 5 MG TABLET PO SCH ×2 (09:42→21:59)
[2018-12-26] MEDS: DULoxetine HCL 30 MG CAPSULE.DR PO SCH ×2 (09:42→21:59)
[2018-12-26] MEDS: predniSONE 20 MG TABLET (UD) PO SCH (09:42)
[2018-12-26] MEDS: SENNOSIDES 8.6MG TABLET (FP) PO SCH ×2 (09:42→22:02)
[2018-12-26] MEDS: oxyCODONE HCL 20 MG SUSTAINED ACTING TABLET PO SCH ×2 (09:44→22:00)
[2018-12-26] MEDS: METHIMAZOLE 5 MG TABLET (FP) PO SCH (09:55)
[2018-12-26] MEDS: CEFTRIAXONE 1 GM in DEXTROSE 5%-WATER - 50 ML IVPB SCH (09:55)
[2018-12-26] MEDS: POLYETHYLENE GLYCOL 3350 119 GM BTL PO SCH (10:03)
[2018-12-26] MEDS: AZITHROMYCIN IVPB 500 MG/250 ML BAG IVPB SCH (10:43)
[2018-12-26] MEDS: BUDESONIDE/FORMETEROL FUMARATE 160/4.5 mcg INHALER IH SCH ×2 (10:43→22:02)
[2018-12-26 11:00] LABS: BASO % 0.6 % (0-2.0); EOS % 0.9 % (0-4.5); HEMATOCRIT 22.5 % (32.4-45.2); HEMOGLOBIN 7.6 GM/dL (10.7-15.3); LYMPH % 16.3 % (8-40); MCH 28.1 pg (25.7-33.7); MCHC 33.6 g/dl (32.0-36.0); MEAN CELL VOLUME 83.6 fl (80-96); MEAN PLT VOLUME 7.7 fl (7.5-11.1); MONO % 7.7 % (3.8-10.2); NEUT % 74.5 % (42.8-82.8); PLATELET COUNT 263 K/MM3 (134-434); RDW 17.3 % (11.6-15.6); WHITE BLOOD COUNT 17.2 K/mm3 (4.0-10.0)
--- NOTE | 2018-12-26 11:21 | PN ---
Progress Note (short form) - Note Progress Note: PULMONARY Still some shortness of breath and nonproductive cough. Vital Signs Period Temp Pulse Resp BP Sys/Mendez Pulse Ox Last 24 Hr 98.4 F-100.3 F 96-106 20-20 125-158/70-81 100 Gen: mildly tachypneic with speaking Heart: RRR Lung: scattered rhonchi Abd: soft, nontender Ext: no edema CBC, BMP 12/26/18 10:35 Active Medications Acetaminophen (Tylenol -) 650 mg PO Q4H PRN PRN Reason: PAIN OR FEVER Last Admin: 12/26/18 06:16 Dose: 650 mg Albuterol/Ipratropium (Duoneb -) 1 amp NEB RQID [facility] Last Admin: 12/26/18 09:11 Dose: 1 amp Apixaban (Eliquis -) 5 mg PO BID [facility] Last Admin: 12/26/18 09:42 Dose: 5 mg Atenolol (Tenormin -) 25 mg PO DAILY [facility] Last Admin: 12/26/18 09:42 Dose: 25 mg Budesonide/Formoterol Fumarate (Symbicort 160/4.5mcg -) 1 puff IH BID [facility] Last Admin: 12/26/18 10:43 Dose: 1 puff Docusate Sodium (Colace -) 200 mg PO HS [facility] Last Admin: 12/25/18 23:56 Dose: 200 mg Duloxetine HCl (Cymbalta -) 30 mg PO BID [facility] Last Admin: 12/26/18 09:42 Dose: 30 mg Folic Acid (Folic Acid -) 1 mg PO DAILY [facility] Last Admin: 12/26/18 09:41 Dose: 1 mg Gabapentin (Neurontin -) 300 mg PO BID [facility] Last Admin: 12/26/18 09:41 Dose: 300 mg Azithromycin (Zithromax 500mg Ivpb (Pre-Docked)) 500 mg in 250 mls @ 250 mls/ hr IVPB DAILY [facility] Last Admin: 12/26/18 10:43 Dose: 250 mls/hr Ceftriaxone Sodium 1 gm/ (Dextrose) 50 mls @ 200 mls/hr IVPB DAILY [facility]; Protocol Last Admin: 12/26/18 09:55 Dose: 200 mls/hr Insulin Aspart (Novolog Vial Sliding Scale -) 1 vial SQ ACHS [facility]; Protocol Last Admin: 12/26/18 07:05 Dose: Not Given Ipratropium [place] (Atrovent 0.02% Nebulizer -) 1 amp NEB Q6H PRN PRN Reason: ASTHMA Last Admin: 12/26/18 05:00 Dose: 1 amp Methimazole (Tapazole -) 5 mg PO DAILY [facility] Last Admin: 12/26/18 09:55 Dose: 5 mg Montelukast Sodium (Singulair -) 10 mg PO HS [facility] Last Admin: 12/25/18 23:53 Dose: 10 mg Ondansetron HCl (Zofran Injection) 8 mg IVPB Q6H PRN PRN Reason: NAUSEA Oxycodone HCl (Oxycontin -) 40 mg PO BID [facility] Last Admin: 12/26/18 09:44 Dose: 40 mg Pantoprazole Sodium (Protonix -) 20 mg PO BID [facility] Last Admin: 12/26/18 09:42 Dose: 20 mg Polyethylene Glycol (Miralax (For Daily Use) -) 17 gm PO DAILY [facility] Last Admin: 12/26/18 10:03 Dose: 17 gm Prednisone (Deltasone -) 40 mg PO DAILY [facility] Stop: 12/27/18 10:01 Last Admin: 12/26/18 09:42 Dose: 40 mg Senna (Senna -) 1 tab PO BID [facility] Last Admin: 12/26/18 09:42 Dose: 1 tab Sitagliptin Phosphate (Januvia -) 25 mg PO DAILY@0700 [facility] Last Admin: 12/26/18 07:07 Dose: 25 mg Tamsulosin HCl (Flomax -) 0.4 mg PO DAILY@0830 [facility] Last Admin: 12/26/18 09:39 Dose: 0.4 mg A/P Pneumonia Septic Shock improving Acute Kidney Injury Hyponatremia resolving Acute COPD Exacerbation Chronic Hypoxic Respirtory Failure h/o PE/DVT DM Sickle Cell Anemia - continue antibiotics - prednisone taper - inhaled bronchodilators - O2 to keep SpO2 90% - continue anticoagulation
[2018-12-26 11:26] LABS: ALBUMIN 2.7 g/dl (3.4-5.0); BILIRUBIN,TOTAL 0.4 mg/dL (0.2-1); BLOOD UREA NITROGEN 20.6 mg/dL (7-18); CALCIUM 9.3 mg/dL (8.5-10.1); MAGNESIUM 1.5 mg/dL (1.8-2.4); PHOSPHOROUS 1.7 mg/dL (2.5-4.9); POTASSIUM 4.1 mmol/L (3.5-5.1); TOT PROT 6.4 g/dl (6.4-8.2)
--- NOTE | 2018-12-26 15:34 | CONSULT ---
Consultation: REQUESTING PROVIDER: Heme/Onc CONSULT REQUEST: We have been asked to medically evaluate this patient for anemia HISTORY OF PRESENT ILLNESS: Pt is a 73 y/o F with PMH Sickle Cell Disease, COPD/Asthma, h/o of PE/DVT ( apixaban), ?prior nephrolithiasis, DM type 2 who presented to the hospital with complaint of back/left groin pain radiating to the back and cough for several months. She is being treated for sepsis. On my interview, pt states her normal Hb is between 13 and 14. She states she has been as low as 4 in the past and can generally feel it early on when she is beginning to have a sickling crisis. She does not have that feeling at this time. She does admit to feeling somewhat fatigued, and admits to bruning epigastric pain worse when lying down and not related to activity. She states that 1 year ago she had a nuclear stress test and was sent for a cardiac cath at [facility]. She states she became dehydrated at that time and ended up in sickling crisis and went to the ICU where she remained for 5 days and was sedated for the first two. She also states that her doctor gives her iron pills, but she does not take them because they give her constipation. She has not discussed this with her primary doctor. REVIEW OF SYSTEMS: CONSTITUTIONAL: generalized weakness Absent: fever, chills, diaphoresis, , malaise, loss of appetite, weight change HEENT: Absent: rhinorrhea, nasal congestion, throat pain, throat swelling, difficulty swallowing, mouth swelling, ear pain, eye pain, visual changes CARDIOVASCULAR: Absent: chest pain, syncope, palpitations, irregular heart rate, lightheadedness , peripheral edema RESPIRATORY: Absent: cough, shortness of breath, dyspnea with exertion, orthopnea, wheezing, stridor, hemoptysis GASTROINTESTINAL: Absent: abdominal pain, abdominal distension, nausea, vomiting, diarrhea, constipation, melena, hematochezia GENITOURINARY: Absent: dysuria, frequency, urgency, hesitancy, hematuria, flank pain, genital pain MUSCULOSKELETAL: Absent: myalgia, arthralgia, joint swelling, back pain, neck pain SKIN: Absent: rash, itching, pallor HEMATOLOGIC/IMMUNOLOGIC: Absent: easy bleeding, easy bruising, lymphadenopathy, frequent infections ENDOCRINE: Absent: unexplained weight gain, unexplained weight loss, heat intolerance, cold intolerance NEUROLOGIC: Absent: headache, focal weakness or paresthesias, dizziness, unsteady gait, seizure, mental status changes, bladder or bowel incontinence PSYCHIATRIC: Absent: anxiety, depression, suicidal or homicidal ideation, hallucinations. PHYSICAL EXAMINATION Vital Signs - 24 hr 12/25/18 12/25/18 12/25/18 16:00 18:00 18:21 Temperature 98.5 F 99.9 F H Pulse Rate 102 H 96 H Respiratory 20 20 Rate Blood Pressure 139/76 O2 Sat by Pulse Oximetry (%) 12/25/18 12/25/18 12/26/18 19:07 21:00 01:00 Temperature 98.4 F 99.4 F Pulse Rate 101 H 100 H 100 H Respiratory 20 20 20 Rate Blood Pressure 142/81 147/81 141/70 O2 Sat by Pulse 100 Oximetry (%) 12/26/18 12/26/18 05:19 09:19 Temperature 100.3 F H 99.5 F Pulse Rate 103 H 102 H Respiratory 20 20 Rate Blood Pressure 158/77 125/77 O2 Sat by Pulse Oximetry (%) Gen: AAOx3, NAD HEENT: NCAT, EOMI Neck: no jvd Cardio: rrr, no mrg, normal s1s2 Pulm: cta b/l Abd: soft, nontender, nondistended Laboratory Results - last 24 hr 12/25/18 12/25/18 12/26/18 16:15 22:10 06:12 WBC RBC Hgb Hct MCV MCH MCHC RDW Plt Count MPV Absolute Neuts (auto) Neutrophils % Lymphocytes % Monocytes % Eosinophils % Basophils % Nucleated RBC % Sodium Potassium Chloride Carbon Dioxide Anion Gap BUN Creatinine Est GFR (CKD-EPI)AfAm Est GFR (CKD-EPI)NonAf POC Glucometer 108 123 80 Random Glucose Hemoglobin A1c % Calcium Phosphorus Magnesium Total Bilirubin AST ALT Alkaline Phosphatase Total Protein Albumin 12/26/18 12/26/18 12/26/18 10:35 10:35 10:35 WBC 17.2 H RBC 2.70 L Hgb 7.6 L Hct 22.5 L MCV 83.6 MCH 28.1 MCHC 33.6 RDW 17.3 H Plt Count 263 MPV 7.7 Absolute Neuts (auto) 12.8 H Neutrophils % 74.5 Lymphocytes % 16.3 Monocytes % 7.7 Eosinophils % 0.9 D Basophils % 0.6 Nucleated RBC % 6 H Sodium 142 Potassium 4.1 Chloride 107 Carbon Dioxide 29 Anion Gap 6 L BUN 20.6 H Creatinine 1.0 Est GFR (CKD-EPI)AfAm 64.27 Est GFR (CKD-EPI)NonAf 55.45 POC Glucometer Random Glucose 111 H Hemoglobin A1c % < 3.5 L Calcium 9.3 Phosphorus 1.7 L Magnesium 1.5 L Total Bilirubin 0.4 AST 16 ALT 8 L Alkaline Phosphatase 68 Total Protein 6.4 Albumin 2.7 L 12/26/18 11:24 WBC RBC Hgb Hct MCV MCH MCHC RDW Plt Count MPV Absolute Neuts (auto) Neutrophils % Lymphocytes % Monocytes % Eosinophils % Basophils % Nucleated RBC % Sodium Potassium Chloride Carbon Dioxide Anion Gap BUN Creatinine Est GFR (CKD-EPI)AfAm Est GFR (CKD-EPI)NonAf POC Glucometer 113 Random Glucose Hemoglobin A1c % Calcium Phosphorus Magnesium Total Bilirubin AST ALT Alkaline Phosphatase Total Protein Albumin Active Medications Generic Name Dose Route Start Last Admin Trade Name Freq PRN Reason Stop Dose Admin Acetaminophen 650 mg 12/25/18 21:33 12/26/18 06:16 Tylenol - PO 650 mg Q4H PRN Administration PAIN OR FEVER Albuterol/Ipratropium 1 amp 12/26/18 08:00 12/26/18 09:11 Duoneb - NEB 1 amp RQID SORAYA Administration Apixaban 5 mg 12/25/18 22:00 12/26/18 09:42 Eliquis - PO 5 mg BID SORAYA Administration Atenolol 25 mg 12/26/18 10:00 12/26/18 09:42 Tenormin - PO 25 mg DAILY SORAYA Administration Budesonide/Formoterol Fumarate 1 puff 12/25/18 22:00 12/26/18 10:43 Symbicort 160/4.5mcg - IH 1 puff BID SORAYA Administration Docusate Sodium 200 mg 12/25/18 22:00 12/25/18 23:56 Colace - PO 200 mg HS SORAYA Administration Duloxetine HCl 30 mg 12/25/18 22:00 12/26/18 09:42 Cymbalta - PO 30 mg BID SORAYA Administration Folic Acid 1 mg 12/26/18 10:00 12/26/18 09:41 Folic Acid - PO 1 mg DAILY SORAYA Administration Gabapentin 300 mg 12/25/18 22:00 12/26/18 09:41 Neurontin - PO 300 mg BID SORAYA Administration Azithromycin 500 mg in 250 mls @ 250 mls/hr 12/26/18 10:00 12/26/18 10:43 Zithromax 500mg Ivpb (Pre-Docked) IVPB 250 mls/hr DAILY S[facility]A Administration Ceftriaxone Sodium 1 gm/ 50 mls @ 200 mls/hr 12/26/18 10:00 12/26/18 09:55 Dextrose IVPB 200 mls/hr DAILY SORAYA Administration Protocol Insulin Aspart 1 vial 12/25/18 22:00 12/26/18 11:26 Novolog Vial Sliding Scale - SQ Not Given ACHS SORAYA Protocol Ipratropium [place] 1 amp 12/25/18 21:33 12/26/18 05:00 Atrovent 0.02% Nebulizer - NEB 1 amp Q6H PRN Administration ASTHMA Methimazole 5 mg 12/26/18 10:00 12/26/18 09:55 Tapazole - PO 5 mg DAILY SORAYA Administration Montelukast Sodium 10 mg 12/25/18 22:00 12/25/18 23:53 Singulair - PO 10 mg HS SORAYA Administration Ondansetron HCl 8 mg 12/25/18 21:33 Zofran Injection IVPB Q6H PRN NAUSEA Oxycodone HCl 40 mg 12/25/18 22:00 12/26/18 09:44 Oxycontin - PO 40 mg BID SORAYA Administration Pantoprazole Sodium 20 mg 12/25/18 22:00 12/26/18 09:42 Protonix - PO 20 mg BID SORAYA Administration Polyethylene Glycol 17 gm 12/26/18 10:00 12/26/18 10:03 Miralax (For Daily Use) - PO 17 gm DAILY SORAYA Administration Prednisone 40 mg 12/26/18 10:00 12/26/18 09:42 Deltasone - PO 12/27/18 10:01 40 mg DAILY SORAYA Administration Senna 1 tab 12/25/18 22:00 12/26/18 09:42 Senna - PO 1 tab BID SORAYA Administration Sitagliptin Phosphate 25 mg 12/26/18 07:00 12/26/18 07:07 Januvia - PO 25 mg DAILY@0700 SORAYA Administration Tamsulosin HCl 0.4 mg 12/26/18 08:30 12/26/18 09:39 Flomax - PO 0.4 mg DAILY@0830 SORAYA Administration ASSESSMENT/PLAN: Pt is a 73 y/o F with PMH Sickle Cell Disease, COPD/Asthma, h/o of PE/DVT ( apixaban), ?prior nephrolithiasis, DM type 2 who presented to the hospital with complaint of back/left groin pain radiating to the back and cough for several months. She is being treated for sepsis. Sickle Cell Disease -anemic -would not transfuse at this time as patient is minimally symptomatic -ensure adequate hydration -pain control -concerning that retics are low and bili is normal. ? aplastic crisis as opposed to rbc lysis -ldh, haptoglobin, parvovirus pcr, hb electrophoresis, folate DVT/PE -c/w apixaban for DVT at this time Sepsis -c/w abx Dispo: We will continue to follow the patient. Thank you for this consultative opportunity. Visit type - Emergency Visit Emergency Visit: No - New Patient This patient is new to me today: Yes Date on this admission: 12/26/18 - Critical Care Critical Care patient: No ATTENDING PHYSICIAN STATEMENT I saw and evaluated the patient. I reviewed the resident's note and discussed the case with the resident. I agree with the resident's findings and plan as documented. SUBJECTIVE: OBJECTIVE: ASSESSMENT AND PLAN:
--- NOTE | 2018-12-26 16:17 | PN ---
Progress Note, Physician History of Present Illness: Pt seen and examined at bedside. She is awake and alert. She denies hematuria or dysuria. - Current Medication List Current Medications: Active Medications Acetaminophen (Tylenol -) 650 mg PO Q4H PRN PRN Reason: PAIN OR FEVER Last Admin: 12/26/18 06:16 Dose: 650 mg Albuterol/Ipratropium (Duoneb -) 1 amp NEB RQID [facility] Last Admin: 12/26/18 09:11 Dose: 1 amp Apixaban (Eliquis -) 5 mg PO BID [facility] Last Admin: 12/26/18 09:42 Dose: 5 mg Atenolol (Tenormin -) 25 mg PO DAILY [facility] Last Admin: 12/26/18 09:42 Dose: 25 mg Budesonide/Formoterol Fumarate (Symbicort 160/4.5mcg -) 1 puff IH BID [facility] Last Admin: 12/26/18 10:43 Dose: 1 puff Docusate Sodium (Colace -) 200 mg PO HS [facility] Last Admin: 12/25/18 23:56 Dose: 200 mg Duloxetine HCl (Cymbalta -) 30 mg PO BID [facility] Last Admin: 12/26/18 09:42 Dose: 30 mg Folic Acid (Folic Acid -) 1 mg PO DAILY [facility] Last Admin: 12/26/18 09:41 Dose: 1 mg Gabapentin (Neurontin -) 300 mg PO BID [facility] Last Admin: 12/26/18 09:41 Dose: 300 mg Azithromycin (Zithromax 500mg Ivpb (Pre-Docked)) 500 mg in 250 mls @ 250 mls/ hr IVPB DAILY [facility] Last Admin: 12/26/18 10:43 Dose: 250 mls/hr Ceftriaxone Sodium 1 gm/ (Dextrose) 50 mls @ 200 mls/hr IVPB DAILY [facility]; Protocol Last Admin: 12/26/18 09:55 Dose: 200 mls/hr Insulin Aspart (Novolog Vial Sliding Scale -) 1 vial SQ ACHS [facility]; Protocol Last Admin: 12/26/18 11:26 Dose: Not Given Ipratropium [place] (Atrovent 0.02% Nebulizer -) 1 amp NEB Q6H PRN PRN Reason: ASTHMA Last Admin: 12/26/18 05:00 Dose: 1 amp Methimazole (Tapazole -) 5 mg PO DAILY [facility] Last Admin: 12/26/18 09:55 Dose: 5 mg Montelukast Sodium (Singulair -) 10 mg PO HS [facility] Last Admin: 12/25/18 23:53 Dose: 10 mg Ondansetron HCl (Zofran Injection) 8 mg IVPB Q6H PRN PRN Reason: NAUSEA Oxycodone HCl (Oxycontin -) 40 mg PO BID [facility] Last Admin: 12/26/18 09:44 Dose: 40 mg Pantoprazole Sodium (Protonix -) 20 mg PO BID [facility] Last Admin: 12/26/18 09:42 Dose: 20 mg Polyethylene Glycol (Miralax (For Daily Use) -) 17 gm PO DAILY [facility] Last Admin: 12/26/18 10:03 Dose: 17 gm Prednisone (Deltasone -) 40 mg PO DAILY [facility] Stop: 12/27/18 10:01 Last Admin: 12/26/18 09:42 Dose: 40 mg Senna (Senna -) 1 tab PO BID [facility] Last Admin: 12/26/18 09:42 Dose: 1 tab Sitagliptin Phosphate (Januvia -) 25 mg PO DAILY@0700 [facility] Last Admin: 12/26/18 07:07 Dose: 25 mg Tamsulosin HCl (Flomax -) 0.4 mg PO DAILY@0830 [facility] Last Admin: 12/26/18 09:39 Dose: 0.4 mg - Objective Vital Signs: Vital Signs Temperature 98 F 12/26/18 13:00 Pulse Rate 114 H 12/26/18 13:00 Respiratory Rate 20 12/26/18 13:00 Blood Pressure 148/91 12/26/18 13:00 O2 Sat by Pulse Oximetry (%) 97 12/26/18 09:00 Constitutional: Yes: Calm Eyes: Yes: Conjunctiva Clear HENT: Yes: Atraumatic Neck: Yes: Supple Cardiovascular: Yes: S1, S2 Respiratory: Yes: CTA Bilaterally, On Nasal O2 Gastrointestinal: Yes: Soft Genitourinary: Yes: WNL Musculoskeletal: Yes: WNL Edema: No Neurological: Yes: Oriented Psychiatric: Yes: Oriented Labs: CBC, BMP 12/26/18 10:35 12/26/18 10:35 INR, PTT INR 1.81 (0.83-1.09) H 12/22/18 18:46 Problem List - Problems (1) GUCCI (acute kidney injury) Code(s): N17.9 - ACUTE KIDNEY FAILURE, UNSPECIFIED Assessment/Plan Current Medications Generic Name Dose Route Start Last Admin Trade Name Freq PRN Reason Stop Dose Admin Acetaminophen 650 mg 12/25/18 21:33 12/26/18 06:16 Tylenol - PO 650 mg Q4H PRN Administration PAIN OR FEVER Albuterol/Ipratropium 1 amp 12/26/18 08:00 12/26/18 09:11 Duoneb - NEB 1 amp RQID SORAYA Administration Apixaban 5 mg 12/25/18 22:00 12/26/18 09:42 Eliquis - PO 5 mg BID SORAYA Administration Atenolol 25 mg 12/26/18 10:00 12/26/18 09:42 Tenormin - PO 25 mg DAILY SORAYA Administration Budesonide/Formoterol Fumarate 1 puff 12/25/18 22:00 12/26/18 10:43 Symbicort 160/4.5mcg - IH 1 puff BID SORAYA Administration Docusate Sodium 200 mg 12/25/18 22:00 12/25/18 23:56 Colace - PO 200 mg HS SORAYA Administration Duloxetine HCl 30 mg 12/25/18 22:00 12/26/18 09:42 Cymbalta - PO 30 mg BID SORAYA Administration Folic Acid 1 mg 12/26/18 10:00 12/26/18 09:41 Folic Acid - PO 1 mg DAILY SORAYA Administration Gabapentin 300 mg 12/25/18 22:00 12/26/18 09:41 Neurontin - PO 300 mg BID SORAYA Administration Azithromycin 500 mg in 250 mls @ 250 mls/hr 12/26/18 10:00 12/26/18 10:43 Zithromax 500mg Ivpb (Pre-Docked) IVPB 250 mls/hr DAILY SORAYA Administration Ceftriaxone Sodium 1 gm/ 50 mls @ 200 mls/hr 12/26/18 10:00 12/26/18 09:55 Dextrose IVPB 200 mls/hr DAILY SORAYA Administration Protocol Insulin Aspart 1 vial 12/25/18 22:00 12/26/18 11:26 Novolog Vial Sliding Scale - SQ Not Given ACHS SORAYA Protocol Ipratropium [place] 1 amp 12/25/18 21:33 12/26/18 05:00 Atrovent 0.02% Nebulizer - NEB 1 amp Q6H PRN Administration ASTHMA Methimazole 5 mg 12/26/18 10:00 12/26/18 09:55 Tapazole - PO 5 mg DAILY SORAYA Administration Montelukast Sodium 10 mg 12/25/18 22:00 12/25/18 23:53 Singulair - PO 10 mg HS SORAYA Administration Ondansetron HCl 8 mg 12/25/18 21:33 Zofran Injection IVPB Q6H PRN NAUSEA Oxycodone HCl 40 mg 12/25/18 22:00 12/26/18 09:44 Oxycontin - PO 40 mg BID SORAYA Administration Pantoprazole Sodium 20 mg 12/25/18 22:00 12/26/18 09:42 Protonix - PO 20 mg BID SORAYA Administration Polyethylene Glycol 17 gm 12/26/18 10:00 12/26/18 10:03 Miralax (For Daily Use) - PO 17 gm DAILY SORAYA Administration Prednisone 40 mg 12/26/18 10:00 12/26/18 09:42 Deltasone - PO 12/27/18 10:01 40 mg DAILY SORAYA Administration Senna 1 tab 12/25/18 22:00 12/26/18 09:42 Senna - PO 1 tab BID SORAYA Administration Sitagliptin Phosphate 25 mg 12/26/18 07:00 12/26/18 07:07 Januvia - PO 25 mg DAILY@0700 SORAYA Administration Tamsulosin HCl 0.4 mg 12/26/18 08:30 12/26/18 09:39 Flomax - PO 0.4 mg DAILY@0830 SORAYA Administration Impression 1. GUCCI 2. sickle cell disease 3. copd 4. dvt 5. dm Plan - renal function stable - pt stable off of fluids - can see in office - will follow PRN - avoid nsaids
--- NOTE | 2018-12-26 18:18 | CON.GI ---
Consult Consult Specialty:: GI Referred by:: Dr Lundberg - History of Present Illness History of Present Illness: 73 y/o F with of Sickle cell disease, COPD nausea and vomitng was asked to be seen because of abdoinal pain which spontaneously resolved. She ate 70 percent of her diet. CT was reviewed which revealed, bronchiectasis, s/p cholecystectomy thickened gastric body - Past Medical History Cardio/Vascular: Yes: Deep Vein Thrombosis, HTN Pulmonary: Yes: Asthma, COPD, Pulmonary Embolus Gastrointestinal: Yes: Constipation, GERD Renal/: Yes: Renal Inusuff, Neurogenic Bladder Psych: Yes: Addictions, Other (Pain meds- methadone, oxycodone ) Musculoskeletal: Yes: Chronic low back pain Endocrine: Yes: Diabetes Mellitus - Past Surgical History Past Surgical History: Yes: Cholecystectomy, Hysterectomy, Joint Replacement - Alcohol/Substance Use Hx Alcohol Use: No History of Substance Use: reports: Prescription - Smoking History Smoking history: Current some day smoker Have you smoked in the past 12 months: No Aproximately how many cigarettes per day: 0 - Social History Usual Living Arrangement: With Spouse (in apartment with 3-4 steps to enter) ADL: Independent History of Recent Travel: No Home Medications - Allergies Allergies/Adverse Reactions: Allergies Allergy/AdvReac Type Severity Reaction Status Date / Time ciprofloxacin [From Cipro] Allergy Itching Verified 12/22/18 17:02 ciprofloxacin HCl Allergy Itching Verified 12/22/18 17:02 [From Cipro] codeine [Codeine] Allergy Verified 12/22/18 17:02 levofloxacin [From Levaquin] Allergy Itching Verified 12/22/18 17:02 Penicillins Allergy Itching Verified 12/22/18 17:02 Sulfa (Sulfonamide Allergy Verified 12/22/18 17:02 Antibiotics) tetanus immune globulin Allergy Verified 12/22/18 17:02 IV DYE Allergy Uncoded 12/22/18 17:02 - Home Medications Home Medications: Ambulatory Orders Folic Acid - 1 mg PO DAILY 02/11/13 Docusate Sodium [Colace -] 100 mg PO DAILY 04/06/15 Montelukast Na [Singulair -] 10 mg PO HS 04/06/15 Losartan Potassium [Cozaar -] 50 mg PO DAILY 01/21/18 oxyCODONE SR [Oxycontin] 40 mg PO Q12H 05/21/18 Acetaminophen [Tylenol .Regular Strength -] 650 mg PO Q4H PRN tablet 05/26/18 Albuterol 0.083% Nebulizer [place] [Ventolin 0.083% Nebulizer Soln -] 1 amp NEB Q4H PRN amp 05/26/18 Gabapentin [Neurontin -] 300 mg PO BID capsule 06/15/18 Omeprazole 20 mg PO BID 06/27/18 Albuterol 2.5/Ipratropium 0.5 [Duoneb -] 1 amp NEB RQID amp 06/30/18 Apixaban [Eliquis] 5 mg PO BID #30 tablet MDD 2 06/30/18 Atenolol [Tenormin -] 25 mg PO DAILY tablet 06/30/18 Budesonide/Formeterol Fumarate [SYMBICORT 160/4.5mcg -] 1 inh PO BID #1 cannister 06/30/18 Cholecalciferol (Vitamin D3) [Vitamin D3 -] 1,000 unit PO DAILY tab 06/30/18 Cholecalciferol (Vitamin D3) [Vitamin D3 -] 1,000 unit PO DAILY #30 tab Duloxetine HCl [Cymbalta -] 30 mg PO BID #30 capsule. MDD 2 06/30/18 Sitagliptin Phosphate [Januvia -] 25 mg PO DAILY@0700 tab 06/30/18 Sitagliptin Phosphate [Januvia] 25 mg PO DAILY #30 tablet MDD 1 06/30/18 Tamsulosin HCl [Flomax -] 0.4 mg PO DAILY@0830 #30 cap.er.24h MDD 1 06/30/18 Tamsulosin HCl [Flomax] 0.4 mg PO DAILY #30 cap.er.24h MDD 1 06/30/18 Physical Exam-GI Vital Signs: Vital Signs Temperature 98 F 12/26/18 13:00 Pulse Rate 114 H 12/26/18 13:00 Respiratory Rate 20 12/26/18 13:00 Blood Pressure 148/91 12/26/18 13:00 O2 Sat by Pulse Oximetry (%) 97 12/26/18 09:00 Constitutional: Yes: Well Nourished Eyes: Yes: Conjunctiva Clear HENT: Yes: Atraumatic Neck: Yes: Supple Cardiovascular: Yes: Regular Rate and Rhythm Respiratory: Yes: CTA Bilaterally Gastrointestinal Inspection: No: Ascites, Distention ...Palpate: Yes: Soft. No: Firm/Rigid, Guarding, Hepatomegaly, Mass, Pulsatile Mass, Splenomegaly, Tenderness Labs: CBC, BMP 12/26/18 10:35 12/26/18 10:35 INR, PTT INR 1.81 (0.83-1.09) H 12/22/18 18:46 Hepatic Panel Total Bilirubin 0.4 mg/dL (0.2-1) 12/26/18 10:35 AST 16 U/L (15-37) 12/26/18 10:35 ALT 8 U/L (13-61) L 12/26/18 10:35 Alkaline Phosphatase 68 U/L (45-117) 12/26/18 10:35 Albumin 2.7 g/dl (3.4-5.0) L 12/26/18 10:35 Problem List - Problems (1) Abdominal pain Assessment/Plan: r/o secondary to sickle cell disease causing low flow state, intestinal angina, dyspepsia R> keep well hydrated hgb greater than 8 continue PPI EGD to r/o PUD once medically cleared Code(s): R10.9 - UNSPECIFIED ABDOMINAL PAIN
[2018-12-26] MEDS ORDERED: INSULIN (NOVOLOG) ASPART 100 UNITS/ML 10ML VIAL ONE (21:21)
--- NOTE | 2018-12-26 21:49 | PN ---
Teaching Attending Note Name of Resident: Maximilian Zhao ATTENDING PHYSICIAN STATEMENT I saw and evaluated the patient. I reviewed the resident's note and discussed the case with the resident. I agree with the resident's findings and plan as documented. SUBJECTIVE: Patient seen and examined Presented with weakness, chills, hypotension, GUCCI. Required pressors. Hx COPD on O-2 at home. Pulmonary symptoms, LLL infitrate vs atelectasis. History of Sickle cell disease followed at [facility] Sickle cell clinic. Has anemia with baseline Hb--13 gm% and now markedly diminished Low Fe++ , Low TIBC compatible with chronic disease and ? component of blood loss. Concern for low retic count in sickler, but had GUCCI, sepsis Last Vital Signs Temp Pulse Resp BP Pulse Ox 99.2 F 88 20 145/78 97 12/26/18 18:00 12/26/18 18:00 12/26/18 18:00 12/26/18 18:00 12/26/18 09:00 HEENT: JOHN, EOM Intact Oropharynx: No thrush, No mucositis, dentures Neck: Supple Nodes: Without adenopathy Breasts: Without masses Cor: RSR, No murmurs, No gallops Lungs: rhonchi/bronchial breath sounds Abd: Soft, Normal bowel sounds, No organomegaly Ext:No significant edema Skin: No rashes, Integument intact CBC, BMP 12/26/18 10:35 12/26/18 10:35 Current Medications Generic Name Dose Route Start Last Admin Trade Name Freq PRN Reason Stop Dose Admin Acetaminophen 650 mg 12/25/18 21:33 12/26/18 06:16 Tylenol - PO 650 mg Q4H PRN Administration PAIN OR FEVER Albuterol/Ipratropium 1 amp 12/26/18 08:00 12/26/18 21:05 Duoneb - NEB 1 amp RQID SORAYA Administration Apixaban 5 mg 12/25/18 22:00 12/26/18 09:42 Eliquis - PO 5 mg BID SORAYA Administration Atenolol 25 mg 12/26/18 10:00 12/26/18 09:42 Tenormin - PO 25 mg DAILY SORAYA Administration Budesonide/Formoterol Fumarate 1 puff 12/25/18 22:00 12/26/18 10:43 Symbicort 160/4.5mcg - IH 1 puff BID SORAYA Administration Docusate Sodium 200 mg 12/25/18 22:00 12/25/18 23:56 Colace - PO 200 mg HS SORAYA Administration Duloxetine HCl 30 mg 12/25/18 22:00 12/26/18 09:42 Cymbalta - PO 30 mg BID SORAYA Administration Folic Acid 1 mg 12/26/18 10:00 12/26/18 09:41 Folic Acid - PO 1 mg DAILY SORAYA Administration Gabapentin 300 mg 12/25/18 22:00 12/26/18 09:41 Neurontin - PO 300 mg BID SORAYA Administration Azithromycin 500 mg in 250 mls @ 250 mls/hr 12/26/18 10:00 12/26/18 10:43 Zithromax 500mg Ivpb (Pre-Docked) IVPB 250 mls/hr DAILY SORAYA Administration Ceftriaxone Sodium 1 gm/ 50 mls @ 200 mls/hr 12/26/18 10:00 12/26/18 09:55 Dextrose IVPB 200 mls/hr DAILY SORAYA Administration Protocol Insulin Aspart 1 vial 12/25/18 22:00 12/26/18 16:12 Novolog Vial Sliding Scale - SQ Not Given ACHS [facility] Protocol Ipratropium [place] 1 amp 12/25/18 21:33 12/26/18 05:00 Atrovent 0.02% Nebulizer - NEB 1 amp Q6H PRN Administration ASTHMA Methimazole 5 mg 12/26/18 10:00 12/26/18 09:55 Tapazole - PO 5 mg DAILY SORAYA Administration Montelukast Sodium 10 mg 12/25/18 22:00 12/25/18 23:53 Singulair - PO 10 mg HS SORAYA Administration Ondansetron HCl 8 mg 12/25/18 21:33 Zofran Injection IVPB Q6H PRN NAUSEA Oxycodone HCl 40 mg 12/25/18 22:00 12/26/18 09:44 Oxycontin - PO 40 mg BID SORAYA Administration Pantoprazole Sodium 20 mg 12/25/18 22:00 12/26/18 09:42 Protonix - PO 20 mg BID SORAYA Administration Polyethylene Glycol 17 gm 12/26/18 10:00 12/26/18 10:03 Miralax (For Daily Use) - PO 17 gm DAILY SORAYA Administration Prednisone 40 mg 12/26/18 10:00 12/26/18 09:42 Deltasone - PO 12/27/18 10:01 40 mg DAILY SORAYA Administration Senna 1 tab 12/25/18 22:00 12/26/18 09:42 Senna - PO 1 tab BID SORAYA Administration Sitagliptin Phosphate 25 mg 12/26/18 07:00 12/26/18 07:07 Januvia - PO 25 mg DAILY@0700 SORAYA Administration Tamsulosin HCl 0.4 mg 12/26/18 08:30 12/26/18 09:39 Flomax - PO 0.4 mg DAILY@0830 SORAYA Administration Sickle cell anemia Sepsis GUCCI ?pneumonia Anemia - low retic - worrisome Hyperthyroidism Folate - just initiated Plan monitor LDH, haptoglobin, retic May need transfusion therapy.. OBJECTIVE: ASSESSMENT AND PLAN:
[2018-12-26] MEDS: DOCUSATE SODIUM 100 MG CAPSULE (FP) PO SCH (21:58)
[2018-12-26] MEDS: MONTELUKAST NA 10 MG TABLET PO SCH (22:01)
[2018-12-27] MEDS: INSULIN SLIDING SCALE (NOVOLOG) 1 VIAL SQ SCH ×4 (06:17→21:47)
[2018-12-27] MEDS: ACETAMINOPHEN 325 MG TABLET (FP) PO PRN ×2 (06:17→15:01)
[2018-12-27] MEDS ORDERED: INSULIN (NOVOLOG) ASPART 100 UNITS/ML 10ML VIAL ONE (06:49)
[2018-12-27] MEDS: ALBUTEROL SO4 2.5/IPRATROPIUM 0.5 INH SOL 3 ML VIAL.NEB. NEB SCH ×4 (07:00→21:00)
--- NOTE | 2018-12-27 08:42 | PN ---
Progress Note, Physician - Current Medication List Current Medications: Active Medications Acetaminophen (Tylenol -) 650 mg PO Q4H PRN PRN Reason: PAIN OR FEVER Last Admin: 12/27/18 06:17 Dose: 650 mg Albuterol/Ipratropium (Duoneb -) 1 amp NEB RQID [facility] Last Admin: 12/27/18 07:00 Dose: 1 amp Apixaban (Eliquis -) 5 mg PO BID [facility] Last Admin: 12/26/18 21:59 Dose: 5 mg Atenolol (Tenormin -) 25 mg PO DAILY [facility] Last Admin: 12/26/18 09:42 Dose: 25 mg Budesonide/Formoterol Fumarate (Symbicort 160/4.5mcg -) 1 puff IH BID [facility] Last Admin: 12/26/18 22:02 Dose: 1 puff Docusate Sodium (Colace -) 200 mg PO HS [facility] Last Admin: 12/26/18 21:58 Dose: 200 mg Duloxetine HCl (Cymbalta -) 30 mg PO BID [facility] Last Admin: 12/26/18 21:59 Dose: 30 mg Folic Acid (Folic Acid -) 1 mg PO DAILY [facility] Last Admin: 12/26/18 09:41 Dose: 1 mg Gabapentin (Neurontin -) 300 mg PO BID [facility] Last Admin: 12/26/18 21:59 Dose: 300 mg Azithromycin (Zithromax 500mg Ivpb (Pre-Docked)) 500 mg in 250 mls @ 250 mls/ hr IVPB DAILY [facility] Last Admin: 12/26/18 10:43 Dose: 250 mls/hr Ceftriaxone Sodium 1 gm/ (Dextrose) 50 mls @ 200 mls/hr IVPB DAILY [facility]; Protocol Last Admin: 12/26/18 09:55 Dose: 200 mls/hr Insulin Aspart (Novolog Vial Sliding Scale -) 1 vial SQ ACHS [facility]; Protocol Last Admin: 12/27/18 06:17 Dose: Not Given Ipratropium [place] (Atrovent 0.02% Nebulizer -) 1 amp NEB Q6H PRN PRN Reason: ASTHMA Last Admin: 12/26/18 05:00 Dose: 1 amp Methimazole (Tapazole -) 5 mg PO DAILY [facility] Last Admin: 12/26/18 09:55 Dose: 5 mg Montelukast Sodium (Singulair -) 10 mg PO HS [facility] Last Admin: 12/26/18 22:01 Dose: 10 mg Ondansetron HCl (Zofran Injection) 8 mg IVPB Q6H PRN PRN Reason: NAUSEA Oxycodone HCl (Oxycontin -) 40 mg PO BID [facility] Last Admin: 12/26/18 22:00 Dose: 40 mg Pantoprazole Sodium (Protonix -) 20 mg PO BID [facility] Last Admin: 12/26/18 22:02 Dose: 20 mg Polyethylene Glycol (Miralax (For Daily Use) -) 17 gm PO DAILY [facility] Last Admin: 12/26/18 10:03 Dose: 17 gm Prednisone (Deltasone -) 40 mg PO DAILY [facility] Stop: 12/27/18 10:01 Last Admin: 12/26/18 09:42 Dose: 40 mg Senna (Senna -) 1 tab PO BID [facility] Last Admin: 12/26/18 22:02 Dose: 1 tab Sitagliptin Phosphate (Januvia -) 25 mg PO DAILY@0700 [facility] Last Admin: 12/27/18 06:17 Dose: 25 mg Tamsulosin HCl (Flomax -) 0.4 mg PO DAILY@0830 [facility] Last Admin: 12/26/18 09:39 Dose: 0.4 mg - Objective Vital Signs: Vital Signs Temperature 99.6 F 12/27/18 06:00 Pulse Rate 103 H 12/27/18 06:00 Respiratory Rate 20 12/27/18 06:00 Blood Pressure 143/71 12/27/18 06:00 O2 Sat by Pulse Oximetry (%) 97 12/26/18 21:00 Cardiovascular: Yes: S1, S2 Respiratory: Yes: Regular, CTA Bilaterally Gastrointestinal: Yes: Normal Bowel Sounds, Soft. No: Tenderness Labs: CBC, BMP 12/26/18 10:35 12/26/18 10:35 INR, PTT INR 1.81 (0.83-1.09) H 12/22/18 18:46 Assessment/Plan - Problems (1) Sickle cell anemia with pain Assessment/Plan: -pain management -Hem consult Problems reviewed: Yes Code(s): D57.00 - HB-SS DISEASE WITH CRISIS, UNSPECIFIED (2) HTN (hypertension) Assessment/Plan: -Hold BP meds -Monitor off levophed Problems reviewed: Yes Code(s): I10 - ESSENTIAL (PRIMARY) HYPERTENSION Qualifiers: Hypertension type: essential hypertension Qualified Code(s): I10 - Essential (primary) hypertension (3) Nausea & vomiting Assessment/Plan: -resolved Problems reviewed: Yes Code(s): R11.2 - NAUSEA WITH VOMITING, UNSPECIFIED Qualifiers: Vomiting type: unspecified Vomiting Intractability: non-intractable Qualified Code(s): R11.2 - Nausea with vomiting, unspecified (4) COPD exacerbation Assessment/Plan: -ID on board -Pulmonary consult -On steroids -IV Rocephin/zithromax -influenza screen-negative -legionella antigen-negative -Repeat CXR reviewed -Nasal O2 to keep SpO2>90% -bronchodilators Problems reviewed: Yes Code(s): J44.1 - CHRONIC OBSTRUCTIVE PULMONARY DISEASE W (ACUTE) EXACERBATION (5) Sepsis Assessment/Plan: -T max 100.3 -ID on board -Pulmonary consult -IV Rocephin/zithromax -influenza screen-negative -legionella antigen-negative -Repeat CXR reviewed -Leukocytosis =20 -BC negative Problems reviewed: Yes Code(s): A41.9 - SEPSIS, UNSPECIFIED ORGANISM (6) GUCCI (acute kidney injury) Assessment/Plan: -improved -nephrology on board -off IVF -monitor trend -avoid nephrotoxic drugs -Renal/bladder US results pending Problems reviewed: Yes Code(s): N17.9 - ACUTE KIDNEY FAILURE, UNSPECIFIED (7) Anemia Assessment/Plan: -S/P 1 unit PRBC-HEM CONSULT NOTED -Monitor trend -check stool OB and B 12 -Thyroid profile indicative for hyperthyroidism -Iron profile normal Problems reviewed: Yes Code(s): D64.9 - ANEMIA, UNSPECIFIED (8) Hyperthyroidism Assessment/Plan: -start methimazole 5 mg po daily -endocrine consult Problems reviewed: Yes Code(s): E05.90 - THYROTOXICOSIS, UNSP WITHOUT THYROTOXIC CRISIS OR STORM
[2018-12-27 09:08] LABS: HEMATOCRIT 22.7 % (32.4-45.2); HEMOGLOBIN 7.6 GM/dL (10.7-15.3); MCH 28.4 pg (25.7-33.7); MCHC 33.4 g/dl (32.0-36.0); MEAN CELL VOLUME 84.9 fl (80-96); MEAN PLT VOLUME 8.2 fl (7.5-11.1); PLATELET COUNT 252 K/MM3 (134-434); RBC 2.67 M/mm3 (3.60-5.2); RDW 17.8 % (11.6-15.6); WHITE BLOOD COUNT 20.3 K/mm3 (4.0-10.0)
[2018-12-27 09:40] LABS: ALBUMIN 2.7 g/dl (3.4-5.0); BILIRUBIN,TOTAL 0.6 mg/dL (0.2-1); BLOOD UREA NITROGEN 16.5 mg/dL (7-18); CALCIUM 8.8 mg/dL (8.5-10.1); CREATININE 0.8 mg/dL (0.55-1.3); POTASSIUM 3.9 mmol/L (3.5-5.1); TOT PROT 6.4 g/dl (6.4-8.2)
--- NOTE | 2018-12-27 10:36 | EKG ---
Test Reason : Blood Pressure : / mmHG Vent. Rate : 062 BPM Atrial Rate : 062 BPM P-R Int : 190 ms QRS Dur : 084 ms QT Int : 384 ms P-R-T Axes : 063 -09 026 degrees QTc Int : 389 ms NORMAL SINUS RHYTHM WITH SINUS ARRHYTHMIA NORMAL ECG WHEN COMPARED WITH ECG OF 22-DEC-2018 17:35, NO SIGNIFICANT CHANGE WAS FOUND Confirmed by SERAFIN DAO, YUE ([id number]) on 12/27/2018 10:36:15 AM Referred By: Confirmed By:YUE BETANCUORT MD
[2018-12-27] MEDS ORDERED: DEXTROSE 5%-WATER - 50 ML IVPB ONE (11:02)
[2018-12-27] MEDS ORDERED: cefTRIAXone SODIUM 1 GM VIAL ONE (11:02)
[2018-12-27] MEDS: PANTOPRAZOLE 20 MG TABLET (FP) PO SCH ×2 (11:04→21:48)
[2018-12-27] MEDS: predniSONE 20 MG TABLET (UD) PO SCH (11:04)
[2018-12-27] MEDS: SENNOSIDES 8.6MG TABLET (FP) PO SCH ×2 (11:04→21:48)
[2018-12-27] MEDS: ATENOLOL 25 MG TABLET (FP) PO SCH (11:05)
[2018-12-27] MEDS: FOLIC ACID 1 MG TABLET (FP) PO SCH (11:05)
[2018-12-27] MEDS: APIXABAN 5 MG TABLET PO SCH ×2 (11:05→21:46)
[2018-12-27] MEDS: GABAPENTIN 300 MG CAPSULE (FP) PO SCH ×2 (11:05→21:46)
[2018-12-27] MEDS: CEFTRIAXONE 1 GM in DEXTROSE 5%-WATER - 50 ML IVPB SCH (11:07)
[2018-12-27] MEDS: oxyCODONE HCL 20 MG SUSTAINED ACTING TABLET PO SCH ×2 (11:08→21:47)
[2018-12-27] MEDS ORDERED: PT OWN MED DRAWER 7, Y5N ONE ×2 (11:23→21:39)
[2018-12-27 11:43] LABS: MAGNESIUM 1.4 mg/dL (1.8-2.4)
[2018-12-27] MEDS: TAMSULOSIN HCL 0.4 MG CAP PO SCH (11:55)
[2018-12-27] MEDS: DULoxetine HCL 30 MG CAPSULE.DR PO SCH ×2 (11:55→21:46)
[2018-12-27] MEDS: POLYETHYLENE GLYCOL 3350 119 GM BTL PO SCH (11:55)
[2018-12-27] MEDS: BUDESONIDE/FORMETEROL FUMARATE 160/4.5 mcg INHALER IH SCH ×2 (11:56→21:49)
[2018-12-27] MEDS: METHIMAZOLE 5 MG TABLET (FP) PO SCH (12:00)
[2018-12-27 12:06] LABS: ANISOCYTOSIS 1+; CORRECTED WBC 17.96 K/mm3; MACROCYTOSIS 0; PLATELET ESTIMATE NORMAL; TARGET CELLS 2+; TEAR DROP CELLS 1+
--- NOTE | 2018-12-27 12:21 | PN ---
Progress Note, Physician History of Present Illness: PULMONARY ALERT,OOB-CHAIR,LESS DYSPNEIC,+ COUGH, EPISODE SPUTUM MIXED WITH DARK HEME - Current Medication List Current Medications: Active Medications Acetaminophen (Tylenol -) 650 mg PO Q4H PRN PRN Reason: PAIN OR FEVER Last Admin: 12/27/18 06:17 Dose: 650 mg Albuterol/Ipratropium (Duoneb -) 1 amp NEB RQID [facility] Last Admin: 12/27/18 12:02 Dose: 1 amp Apixaban (Eliquis -) 5 mg PO BID [facility] Last Admin: 12/27/18 11:05 Dose: 5 mg Atenolol (Tenormin -) 25 mg PO DAILY [facility] Last Admin: 12/27/18 11:05 Dose: 25 mg Budesonide/Formoterol Fumarate (Symbicort 160/4.5mcg -) 1 puff IH BID [facility] Last Admin: 12/27/18 11:56 Dose: 1 puff Docusate Sodium (Colace -) 200 mg PO HS [facility] Last Admin: 12/26/18 21:58 Dose: 200 mg Duloxetine HCl (Cymbalta -) 30 mg PO BID [facility] Last Admin: 12/27/18 11:55 Dose: 30 mg Folic Acid (Folic Acid -) 1 mg PO DAILY [facility] Last Admin: 12/27/18 11:05 Dose: 1 mg Gabapentin (Neurontin -) 300 mg PO BID [facility] Last Admin: 12/27/18 11:05 Dose: 300 mg Azithromycin (Zithromax 500mg Ivpb (Pre-Docked)) 500 mg in 250 mls @ 250 mls/ hr IVPB DAILY [facility] Last Admin: 12/26/18 10:43 Dose: 250 mls/hr Ceftriaxone Sodium 1 gm/ (Dextrose) 50 mls @ 200 mls/hr IVPB DAILY [facility]; Protocol Last Admin: 12/27/18 11:07 Dose: 200 mls/hr Insulin Aspart (Novolog Vial Sliding Scale -) 1 vial SQ ACHS [facility]; Protocol Last Admin: 12/27/18 12:03 Dose: Not Given Ipratropium [place] (Atrovent 0.02% Nebulizer -) 1 amp NEB Q6H PRN PRN Reason: ASTHMA Last Admin: 12/26/18 05:00 Dose: 1 amp Methimazole (Tapazole -) 5 mg PO DAILY [facility] Last Admin: 12/27/18 12:00 Dose: 5 mg Montelukast Sodium (Singulair -) 10 mg PO HS [facility] Last Admin: 12/26/18 22:01 Dose: 10 mg Ondansetron HCl (Zofran Injection) 8 mg IVPB Q6H PRN PRN Reason: NAUSEA Oxycodone HCl (Oxycontin -) 40 mg PO BID [facility] Last Admin: 12/27/18 11:08 Dose: 40 mg Pantoprazole Sodium (Protonix -) 20 mg PO BID [facility] Last Admin: 12/27/18 11:04 Dose: 20 mg Polyethylene Glycol (Miralax (For Daily Use) -) 17 gm PO DAILY [facility] Last Admin: 12/27/18 11:55 Dose: Not Given Senna (Senna -) 1 tab PO BID [facility] Last Admin: 12/27/18 11:04 Dose: 1 tab Sitagliptin Phosphate (Januvia -) 25 mg PO DAILY@0700 [facility] Last Admin: 12/27/18 06:17 Dose: 25 mg Tamsulosin HCl (Flomax -) 0.4 mg PO DAILY@0830 [facility] Last Admin: 12/27/18 11:55 Dose: 0.4 mg - Objective Vital Signs: Vital Signs Temperature 99.6 F 12/27/18 06:00 Pulse Rate 103 H 12/27/18 06:00 Respiratory Rate 20 12/27/18 06:00 Blood Pressure 143/71 12/27/18 06:00 O2 Sat by Pulse Oximetry (%) 97 12/26/18 21:00 Constitutional: Yes: Well Nourished, Calm Eyes: Yes: WNL HENT: Yes: WNL Neck: Yes: WNL Cardiovascular: Yes: Regular Rate and Rhythm, S1, S2 Respiratory: Yes: Rales (BILATERAL CRACKLES 1/3 UP) Gastrointestinal: Yes: Normal Bowel Sounds, Soft Extremities: Yes: WNL Edema: No Labs: CBC, BMP 12/27/18 07:05 12/27/18 07:05 INR, PTT INR 1.81 (0.83-1.09) H 12/22/18 18:46 Problem List - Problems (1) Acute renal failure Code(s): N17.9 - ACUTE KIDNEY FAILURE, UNSPECIFIED (2) Anemia Code(s): D64.9 - ANEMIA, UNSPECIFIED (3) COPD (chronic obstructive pulmonary disease) Code(s): J44.9 - CHRONIC OBSTRUCTIVE PULMONARY DISEASE, UNSPECIFIED (4) History of pulmonary embolism Code(s): Z86.711 - PERSONAL HISTORY OF PULMONARY EMBOLISM (5) Pneumonia Code(s): J18.9 - PNEUMONIA, UNSPECIFIED ORGANISM (6) Sickle cell anemia Code(s): D57.1 - SICKLE-CELL DISEASE WITHOUT CRISIS Qualifiers: Sickle-cell associated disorders: without crisis Qualified Code(s): D57.1 - Sickle-cell disease without crisis (7) HTN (hypertension) Code(s): I10 - ESSENTIAL (PRIMARY) HYPERTENSION Qualifiers: Hypertension type: essential hypertension Qualified Code(s): I10 - Essential (primary) hypertension Assessment/Plan A/P Pneumonia Septic Shock improving Acute Kidney Injury improved Hyponatremia resolving Acute COPD Exacerbation Chronic Hypoxic Respiratory Failure h/o PE/DVT DM Sickle Cell Anemia - antibiotics as per ud - prednisone - inhaled bronchodilators - O2 to keep SpO2 90% - continue anticoagulation - chest ct DR PANDEY
[2018-12-27] MEDS ORDERED: FUROSEMIDE 20 MG TABLET (FP) PO ONE (13:23)
[2018-12-27] MEDS ORDERED: MAGNESIUM SULF 50% (8.12 MEQ/2 ML-1 GM VIAL) IVPB ONE (13:23)
--- NOTE | 2018-12-27 13:28 | PN ---
Progress Note, Physician History of Present Illness: Pt seen and examined at bedside. She is awake and alert. She complains of shortness of breath with exertion. - Current Medication List Current Medications: Active Medications Acetaminophen (Tylenol -) 650 mg PO Q4H PRN PRN Reason: PAIN OR FEVER Last Admin: 12/27/18 06:17 Dose: 650 mg Albuterol/Ipratropium (Duoneb -) 1 amp NEB RQID [facility] Last Admin: 12/27/18 12:02 Dose: 1 amp Apixaban (Eliquis -) 5 mg PO BID [facility] Last Admin: 12/27/18 11:05 Dose: 5 mg Atenolol (Tenormin -) 25 mg PO DAILY [facility] Last Admin: 12/27/18 11:05 Dose: 25 mg Budesonide/Formoterol Fumarate (Symbicort 160/4.5mcg -) 1 puff IH BID [facility] Last Admin: 12/27/18 11:56 Dose: 1 puff Docusate Sodium (Colace -) 200 mg PO HS [facility] Last Admin: 12/26/18 21:58 Dose: 200 mg Duloxetine HCl (Cymbalta -) 30 mg PO BID [facility] Last Admin: 12/27/18 11:55 Dose: 30 mg Folic Acid (Folic Acid -) 1 mg PO DAILY [facility] Last Admin: 12/27/18 11:05 Dose: 1 mg Gabapentin (Neurontin -) 300 mg PO BID [facility] Last Admin: 12/27/18 11:05 Dose: 300 mg Azithromycin (Zithromax 500mg Ivpb (Pre-Docked)) 500 mg in 250 mls @ 250 mls/ hr IVPB DAILY [facility] Last Admin: 12/26/18 10:43 Dose: 250 mls/hr Ceftriaxone Sodium 1 gm/ (Dextrose) 50 mls @ 200 mls/hr IVPB DAILY [facility]; Protocol Last Admin: 12/27/18 11:07 Dose: 200 mls/hr Insulin Aspart (Novolog Vial Sliding Scale -) 1 vial SQ ACHS [facility]; Protocol Last Admin: 12/27/18 12:03 Dose: Not Given Ipratropium [place] (Atrovent 0.02% Nebulizer -) 1 amp NEB Q6H PRN PRN Reason: ASTHMA Last Admin: 12/26/18 05:00 Dose: 1 amp Methimazole (Tapazole -) 5 mg PO DAILY [facility] Last Admin: 12/27/18 12:00 Dose: 5 mg Montelukast Sodium (Singulair -) 10 mg PO HS [facility] Last Admin: 12/26/18 22:01 Dose: 10 mg Ondansetron HCl (Zofran Injection) 8 mg IVPB Q6H PRN PRN Reason: NAUSEA Oxycodone HCl (Oxycontin -) 40 mg PO BID [facility] Last Admin: 12/27/18 11:08 Dose: 40 mg Pantoprazole Sodium (Protonix -) 20 mg PO BID [facility] Last Admin: 12/27/18 11:04 Dose: 20 mg Polyethylene Glycol (Miralax (For Daily Use) -) 17 gm PO DAILY [facility] Last Admin: 12/27/18 11:55 Dose: Not Given Senna (Senna -) 1 tab PO BID [facility] Last Admin: 12/27/18 11:04 Dose: 1 tab Sitagliptin Phosphate (Januvia -) 25 mg PO DAILY@0700 [facility] Last Admin: 12/27/18 06:17 Dose: 25 mg Tamsulosin HCl (Flomax -) 0.4 mg PO DAILY@0830 [facility] Last Admin: 12/27/18 11:55 Dose: 0.4 mg - Objective Vital Signs: Vital Signs Temperature 99.6 F 12/27/18 06:00 Pulse Rate 103 H 12/27/18 06:00 Respiratory Rate 20 12/27/18 06:00 Blood Pressure 143/71 12/27/18 06:00 O2 Sat by Pulse Oximetry (%) 97 12/26/18 21:00 Constitutional: Yes: Calm Eyes: Yes: Conjunctiva Clear HENT: Yes: Atraumatic Neck: Yes: Supple Cardiovascular: Yes: S1, S2 Respiratory: Yes: On Nasal O2, Rhonchi, Wheezes Gastrointestinal: Yes: Soft, Abdomen, Obese Genitourinary: Yes: WNL Musculoskeletal: Yes: WNL Edema: LLE: Trace, RLE: Trace Neurological: Yes: Oriented Psychiatric: Yes: Oriented Labs: CBC, BMP 12/27/18 07:05 12/27/18 07:05 INR, PTT INR 1.81 (0.83-1.09) H 12/22/18 18:46 Problem List - Problems (1) GUCCI (acute kidney injury) Code(s): N17.9 - ACUTE KIDNEY FAILURE, UNSPECIFIED Assessment/Plan Current Medications Generic Name Dose Route Start Last Admin Trade Name Freq PRN Reason Stop Dose Admin Acetaminophen 650 mg 12/25/18 21:33 12/27/18 06:17 Tylenol - PO 650 mg Q4H PRN Administration PAIN OR FEVER Albuterol/Ipratropium 1 amp 12/26/18 08:00 12/27/18 12:02 Duoneb - NEB 1 amp RQID SORAYA Administration Apixaban 5 mg 12/25/18 22:00 12/27/18 11:05 Eliquis - PO 5 mg BID [facility] Administration Atenolol 25 mg 12/26/18 10:00 12/27/18 11:05 Tenormin - PO 25 mg DAILY [facility] Administration Budesonide/Formoterol Fumarate 1 puff 12/25/18 22:00 12/27/18 11:56 Symbicort 160/4.5mcg - IH 1 puff BID [facility] Administration Docusate Sodium 200 mg 12/25/18 22:00 12/26/18 21:58 Colace - PO 200 mg HS [facility] Administration Duloxetine HCl 30 mg 12/25/18 22:00 12/27/18 11:55 Cymbalta - PO 30 mg BID [facility] Administration Folic Acid 1 mg 12/26/18 10:00 12/27/18 11:05 Folic Acid - PO 1 mg DAILY [facility] Administration Furosemide 20 mg 12/27/18 13:23 Lasix - PO 12/27/18 13:24 ONCE ONE Gabapentin 300 mg 12/25/18 22:00 12/27/18 11:05 Neurontin - PO 300 mg BID [facility] Administration Azithromycin 500 mg in 250 mls @ 250 mls/hr 12/26/18 10:00 12/26/18 10:43 Zithromax 500mg Ivpb (Pre-Docked) IVPB 250 mls/hr DAILY [facility] Administration Ceftriaxone Sodium 1 gm/ 50 mls @ 200 mls/hr 12/26/18 10:00 12/27/18 11:07 Dextrose IVPB 200 mls/hr DAILY [facility] Administration Protocol Insulin Aspart 1 vial 12/25/18 22:00 12/27/18 12:03 Novolog Vial Sliding Scale - SQ Not Given ACHS [facility] Protocol Ipratropium [place] 1 amp 12/25/18 21:33 12/26/18 05:00 Atrovent 0.02% Nebulizer - NEB 1 amp Q6H PRN Administration ASTHMA Magnesium Sulfate 2 gm 12/27/18 13:23 Magnesium Sulfate IVPB 12/27/18 13:24 ONCE ONE Methimazole 5 mg 12/26/18 10:00 12/27/18 12:00 Tapazole - PO 5 mg DAILY [facility] Administration Montelukast Sodium 10 mg 12/25/18 22:00 12/26/18 22:01 Singulair - PO 10 mg HS [facility] Administration Ondansetron HCl 8 mg 12/25/18 21:33 Zofran Injection IVPB Q6H PRN NAUSEA Oxycodone HCl 40 mg 12/25/18 22:00 12/27/18 11:08 Oxycontin - PO 40 mg BID [facility] Administration Pantoprazole Sodium 20 mg 12/25/18 22:00 12/27/18 11:04 Protonix - PO 20 mg BID [facility] Administration Polyethylene Glycol 17 gm 12/26/18 10:00 12/27/18 11:55 Miralax (For Daily Use) - PO Not Given DAILY [facility] Senna 1 tab 12/25/18 22:00 12/27/18 11:04 Senna - PO 1 tab BID [facility] Administration Sitagliptin Phosphate 25 mg 12/26/18 07:00 12/27/18 06:17 Januvia - PO 25 mg DAILY@0700 [facility] Administration Tamsulosin HCl 0.4 mg 12/26/18 08:30 12/27/18 11:55 Flomax - PO 0.4 mg DAILY@0830 [facility] Administration Impression 1. GUCCI 2. sickle cell disease 3. copd 4. dvt 5. dm Plan - renal function is stable - discussed with pulmonary, will give a small dose of lasix - follow ct chest - monitor volume status - repeat labs in am - avoid nsaids
--- NOTE | 2018-12-27 13:51 | PN ---
Progress Note (short form) - Note Progress Note: +Bm no vomiting, no abdominal alexandra still with cough and wheeze Vital Signs Period Temp Pulse Resp BP Sys/Mendez Pulse Ox Last 24 Hr 99 F-99.6 F 88-103 20-20 134-156/71-79 97 cor-rrr lungs bilateral rhonchi and wheezing abd soft,nt ext no edema CBC, BMP 12/27/18 07:05 12/27/18 07:05 Microbiology 12/23/18 06:00 Blood - Peripheral Venous Blood Culture - Preliminary NO GROWTH OBTAINED AFTER 96 HOURS, INCUBATION TO CONTINUE FOR 1 DAYS. 12/23/18 03:45 Blood - Peripheral Venous Blood Culture - Preliminary NO GROWTH OBTAINED AFTER 96 HOURS, INCUBATION TO CONTINUE FOR 1 DAYS. 12/23/18 02:05 Urine - Urine Clean Catch Urine Culture - Final NO GROWTH OBTAINED 12/23/18 10:45 Urine For Antigen Detection Legionella Antigen - Final 12/23/18 10:45 Urine For Antigen Detection Streptococcus pneumoniae Antigen (M - Final cxray- congestion, cannot r/o infiltrate left base a/p cannot r/o pneumonia with cough/wheezing- SCD-s/p transfusion multiple antibiotic allergies acute renal failure resolved ?congestion- volume overload- consider trial of lasix, continue antibiotics day #4 ceftriaxone/zithromax Problem List - Problems (1) Sepsis Code(s): A41.9 - SEPSIS, UNSPECIFIED ORGANISM (2) Acute renal failure Code(s): N17.9 - ACUTE KIDNEY FAILURE, UNSPECIFIED (3) Sickle cell anemia Code(s): D57.1 - SICKLE-CELL DISEASE WITHOUT CRISIS Qualifiers: Sickle-cell associated disorders: without crisis Qualified Code(s): D57.1 - Sickle-cell disease without crisis (4) Allergy to multiple antibiotics Code(s): Z88.1 - ALLERGY STATUS TO OTHER ANTIBIOTIC AGENTS STATUS
[2018-12-27] MEDS: MAGNESIUM OXIDE 400 MG TABLET (FP) PO SCH (15:01)
[2018-12-27] MEDS: AZITHROMYCIN IVPB 500 MG/250 ML BAG IVPB SCH (17:56)
[2018-12-27] MEDS: DOCUSATE SODIUM 100 MG CAPSULE (FP) PO SCH (21:46)
[2018-12-27] MEDS: MONTELUKAST NA 10 MG TABLET PO SCH (21:48)
[2018-12-28] MEDS: INSULIN SLIDING SCALE (NOVOLOG) 1 VIAL SQ SCH ×4 (06:31→22:31)
[2018-12-28] MEDS: ALBUTEROL SO4 2.5/IPRATROPIUM 0.5 INH SOL 3 ML VIAL.NEB. NEB SCH ×4 (07:25→21:07)
[2018-12-28] MEDS: TAMSULOSIN HCL 0.4 MG CAP PO SCH (08:05)
[2018-12-28 10:45] LABS: ALBUMIN 2.8 g/dl (3.4-5.0); BILIRUBIN,TOTAL 0.6 mg/dL (0.2-1); BLOOD UREA NITROGEN 14.6 mg/dL (7-18); CALCIUM 9.3 mg/dL (8.5-10.1); CREATININE 0.8 mg/dL (0.55-1.3); POTASSIUM 3.7 mmol/L (3.5-5.1); TOT PROT 6.7 g/dl (6.4-8.2)
[2018-12-28] MEDS ORDERED: cefTRIAXone SODIUM 1 GM VIAL ONE (11:09)
[2018-12-28] MEDS ORDERED: DEXTROSE 5%-WATER - 50 ML IVPB ONE (11:09)
[2018-12-28] MEDS: oxyCODONE HCL 20 MG SUSTAINED ACTING TABLET PO SCH ×2 (11:18→22:09)
[2018-12-28] MEDS: ATENOLOL 25 MG TABLET (FP) PO SCH (11:19)
[2018-12-28] MEDS: FOLIC ACID 1 MG TABLET (FP) PO SCH (11:19)
[2018-12-28] MEDS: SENNOSIDES 8.6MG TABLET (FP) PO SCH ×2 (11:19→22:09)
[2018-12-28] MEDS: MAGNESIUM OXIDE 400 MG TABLET (FP) PO SCH (11:19)
[2018-12-28] MEDS: APIXABAN 5 MG TABLET PO SCH ×2 (11:19→22:09)
[2018-12-28] MEDS: PANTOPRAZOLE 20 MG TABLET (FP) PO SCH ×2 (11:19→22:09)
[2018-12-28] MEDS: GABAPENTIN 300 MG CAPSULE (FP) PO SCH ×2 (11:19→22:09)
[2018-12-28] MEDS: AZITHROMYCIN IVPB 500 MG/250 ML BAG IVPB SCH (11:20)
[2018-12-28] MEDS: CEFTRIAXONE 1 GM in DEXTROSE 5%-WATER - 50 ML IVPB SCH (11:20)
[2018-12-28] MEDS: BUDESONIDE/FORMETEROL FUMARATE 160/4.5 mcg INHALER IH SCH ×2 (11:21→22:08)
--- NOTE | 2018-12-28 11:47 | PN ---
Progress Note (short form) - Note Progress Note: PULMONARY Still some shortness of breath and nonproductive cough. No fevers. CT chest showing basilar atelectasis vs infiltrates. Vital Signs Period Temp Pulse Resp BP Sys/Mendez Pulse Ox Last 24 Hr 98.7 F-99.5 F 90-101 20-20 150-159/81-91 95 Gen: mildly tachypneic with speaking Heart: RRR Lung: scattered rhonchi Abd: soft, nontender Ext: no edema CBC, BMP 12/27/18 07:05 12/28/18 06:00 Active Medications Acetaminophen (Tylenol -) 650 mg PO Q4H PRN PRN Reason: PAIN OR FEVER Last Admin: 12/27/18 15:01 Dose: 650 mg Albuterol/Ipratropium (Duoneb -) 1 amp NEB RQID [facility] Last Admin: 12/28/18 11:33 Dose: 1 amp Apixaban (Eliquis -) 5 mg PO BID [facility] Last Admin: 12/28/18 11:19 Dose: 5 mg Atenolol (Tenormin -) 25 mg PO DAILY [facility] Last Admin: 12/28/18 11:19 Dose: 25 mg Budesonide/Formoterol Fumarate (Symbicort 160/4.5mcg -) 1 puff IH BID [facility] Last Admin: 12/28/18 11:21 Dose: 1 puff Docusate Sodium (Colace -) 200 mg PO HS [facility] Last Admin: 12/27/18 21:46 Dose: 200 mg Duloxetine HCl (Cymbalta -) 30 mg PO BID [facility] Last Admin: 12/27/18 21:46 Dose: 30 mg Folic Acid (Folic Acid -) 1 mg PO DAILY [facility] Last Admin: 12/28/18 11:19 Dose: 1 mg Gabapentin (Neurontin -) 300 mg PO BID [facility] Last Admin: 12/28/18 11:19 Dose: 300 mg Azithromycin (Zithromax 500mg Ivpb (Pre-Docked)) 500 mg in 250 mls @ 250 mls/ hr IVPB DAILY [facility] Last Admin: 12/28/18 11:20 Dose: 250 mls/hr Ceftriaxone Sodium 1 gm/ (Dextrose) 50 mls @ 200 mls/hr IVPB DAILY [facility]; Protocol Last Admin: 12/28/18 11:20 Dose: 200 mls/hr Insulin Aspart (Novolog Vial Sliding Scale -) 1 vial SQ ACHS [facility]; Protocol Last Admin: 12/28/18 06:31 Dose: Not Given Ipratropium [place] (Atrovent 0.02% Nebulizer -) 1 amp NEB Q6H PRN PRN Reason: ASTHMA Last Admin: 12/26/18 05:00 Dose: 1 amp Magnesium Oxide (Mag-Ox -) 400 mg PO DAILY [facility] Last Admin: 12/28/18 11:19 Dose: 400 mg Methimazole (Tapazole -) 5 mg PO DAILY [facility] Last Admin: 12/27/18 12:00 Dose: 5 mg Montelukast Sodium (Singulair -) 10 mg PO HS [facility] Last Admin: 12/27/18 21:48 Dose: 10 mg Ondansetron HCl (Zofran Injection) 8 mg IVPB Q6H PRN PRN Reason: NAUSEA Oxycodone HCl (Oxycontin -) 40 mg PO BID [facility] Last Admin: 12/28/18 11:18 Dose: 40 mg Pantoprazole Sodium (Protonix -) 20 mg PO BID [facility] Last Admin: 12/28/18 11:19 Dose: 20 mg Polyethylene Glycol (Miralax (For Daily Use) -) 17 gm PO DAILY [facility] Last Admin: 12/27/18 11:55 Dose: Not Given Senna (Senna -) 1 tab PO BID [facility] Last Admin: 12/28/18 11:19 Dose: 1 tab Sitagliptin Phosphate (Januvia -) 25 mg PO DAILY@0700 [facility] Last Admin: 12/28/18 06:41 Dose: 25 mg Tamsulosin HCl (Flomax -) 0.4 mg PO DAILY@0830 [facility] Last Admin: 12/28/18 08:05 Dose: 0.4 mg A/P Pneumonia Septic Shock improving Acute Kidney Injury Hyponatremia resolving Acute COPD Exacerbation Chronic Hypoxic Respirtory Failure h/o PE/DVT DM Sickle Cell Anemia - continue antibiotics - will place back on IV steroids - inhaled bronchodilators - O2 to keep SpO2 90% - continue anticoagulation - consider PRBC transfusion
[2018-12-28 12:11] LABS: MAGNESIUM 1.5 mg/dL (1.8-2.4)
[2018-12-28] MEDS ORDERED: PT OWN MED DRAWER 7, Y5N ONE ×2 (12:58→21:22)
[2018-12-28] MEDS: DULoxetine HCL 30 MG CAPSULE.DR PO SCH ×2 (13:04→22:09)
[2018-12-28] MEDS: METHIMAZOLE 5 MG TABLET (FP) PO SCH (13:05)
[2018-12-28] MEDS: POLYETHYLENE GLYCOL 3350 119 GM BTL PO SCH (13:06)
[2018-12-28] MEDS: methylPREDNISolone NA SUCC 40 MG/1 ML VIAL IVPUSH SCH ×2 (13:07→18:45)
[2018-12-28] MEDS ORDERED: FUROSEMIDE 40 MG/4 ML INJECTABLE VIAL IVPUSH ONE (13:17)
--- NOTE | 2018-12-28 13:22 | PN ---
Progress Note, Physician Chief Complaint: patient seen and examined says she gets SOB when she ambulates from bed to chair - Current Medication List Current Medications: Active Medications Acetaminophen (Tylenol -) 650 mg PO Q4H PRN PRN Reason: PAIN OR FEVER Last Admin: 12/27/18 15:01 Dose: 650 mg Albuterol/Ipratropium (Duoneb -) 1 amp NEB RQID [facility] Last Admin: 12/28/18 11:33 Dose: 1 amp Apixaban (Eliquis -) 5 mg PO BID [facility] Last Admin: 12/28/18 11:19 Dose: 5 mg Atenolol (Tenormin -) 25 mg PO DAILY [facility] Last Admin: 12/28/18 11:19 Dose: 25 mg Budesonide/Formoterol Fumarate (Symbicort 160/4.5mcg -) 1 puff IH BID [facility] Last Admin: 12/28/18 11:21 Dose: 1 puff Docusate Sodium (Colace -) 200 mg PO HS [facility] Last Admin: 12/27/18 21:46 Dose: 200 mg Duloxetine HCl (Cymbalta -) 30 mg PO BID [facility] Last Admin: 12/28/18 13:04 Dose: 30 mg Folic Acid (Folic Acid -) 1 mg PO DAILY [facility] Last Admin: 12/28/18 11:19 Dose: 1 mg Furosemide (Lasix Injection -) 40 mg IVPUSH ONCE ONE Stop: 12/28/18 13:18 Gabapentin (Neurontin -) 300 mg PO BID [facility] Last Admin: 12/28/18 11:19 Dose: 300 mg Azithromycin (Zithromax 500mg Ivpb (Pre-Docked)) 500 mg in 250 mls @ 250 mls/ hr IVPB DAILY [facility] Last Admin: 12/28/18 11:20 Dose: 250 mls/hr Ceftriaxone Sodium 1 gm/ (Dextrose) 50 mls @ 200 mls/hr IVPB DAILY [facility]; Protocol Last Admin: 12/28/18 11:20 Dose: 200 mls/hr Insulin Aspart (Novolog Vial Sliding Scale -) 1 vial SQ ACHS [facility]; Protocol Last Admin: 12/28/18 12:34 Dose: Not Given Ipratropium [place] (Atrovent 0.02% Nebulizer -) 1 amp NEB Q6H PRN PRN Reason: ASTHMA Last Admin: 12/26/18 05:00 Dose: 1 amp Magnesium Oxide (Mag-Ox -) 400 mg PO DAILY [facility] Last Admin: 12/28/18 11:19 Dose: 400 mg Methimazole (Tapazole -) 5 mg PO DAILY [facility] Last Admin: 12/28/18 13:05 Dose: 5 mg Methylprednisolone Sodium Succinate (Solu-Medrol -) 40 mg IVPUSH Q8H-IV [facility] Last Admin: 12/28/18 13:07 Dose: 40 mg Montelukast Sodium (Singulair -) 10 mg PO HS [facility] Last Admin: 12/27/18 21:48 Dose: 10 mg Ondansetron HCl (Zofran Injection) 8 mg IVPB Q6H PRN PRN Reason: NAUSEA Oxycodone HCl (Oxycontin -) 40 mg PO BID [facility] Last Admin: 12/28/18 11:18 Dose: 40 mg Pantoprazole Sodium (Protonix -) 20 mg PO BID [facility] Last Admin: 12/28/18 11:19 Dose: 20 mg Polyethylene Glycol (Miralax (For Daily Use) -) 17 gm PO DAILY [facility] Last Admin: 12/28/18 13:06 Dose: Not Given Senna (Senna -) 1 tab PO BID [facility] Last Admin: 12/28/18 11:19 Dose: 1 tab Sitagliptin Phosphate (Januvia -) 25 mg PO DAILY@0700 [facility] Last Admin: 12/28/18 06:41 Dose: 25 mg Tamsulosin HCl (Flomax -) 0.4 mg PO DAILY@0830 [facility] Last Admin: 12/28/18 08:05 Dose: 0.4 mg - Objective Vital Signs: Vital Signs Temperature 98.8 F 12/28/18 08:07 Pulse Rate 94 H 12/28/18 08:07 Respiratory Rate 20 12/28/18 08:07 Blood Pressure 150/82 12/28/18 08:07 O2 Sat by Pulse Oximetry (%) 95 12/27/18 21:00 Constitutional: Yes: Calm Cardiovascular: Yes: Regular Rate and Rhythm, S1, S2 Respiratory: Yes: Rhonchi Gastrointestinal: Yes: Normal Bowel Sounds, Soft Neurological: Yes: Alert Labs: CBC, BMP 12/27/18 07:05 12/28/18 06:00 INR, PTT INR 1.81 (0.83-1.09) H 12/22/18 18:46 Problem List - Problems (1) Anemia Assessment/Plan: prbc today with lasix 40mg iv after transfusion Code(s): D64.9 - ANEMIA, UNSPECIFIED (2) GUCCI (acute kidney injury) Assessment/Plan: creatinine improved Code(s): N17.9 - ACUTE KIDNEY FAILURE, UNSPECIFIED (3) Pulmonary embolism Assessment/Plan: fpc antiocoagulation Code(s): I26.99 - OTHER PULMONARY EMBOLISM WITHOUT ACUTE COR PULMONALE (4) Sepsis Assessment/Plan: secoandry to pna on iv antiobitiocs chest CT noted Code(s): A41.9 - SEPSIS, UNSPECIFIED ORGANISM (5) Hypotension Assessment/Plan: s/p pressors, ivf now oput of icu on med surg floor BP much improved Code(s): I95.9 - HYPOTENSION, UNSPECIFIED (6) Diabetes Assessment/Plan: bgm januvia Code(s): E11.9 - TYPE 2 DIABETES MELLITUS WITHOUT COMPLICATIONS Qualifiers: Diabetes mellitus type: type 2 (7) COPD (chronic obstructive pulmonary disease) Assessment/Plan: iv medrol bronchodilators Code(s): J44.9 - CHRONIC OBSTRUCTIVE PULMONARY DISEASE, UNSPECIFIED (8) Hyperthyroidism Assessment/Plan: tapazole Code(s): E05.90 - THYROTOXICOSIS, UNSP WITHOUT THYROTOXIC CRISIS OR STORM
[2018-12-28] MEDS ORDERED: MAGNESIUM SULF 50% (8.12 MEQ/2 ML-1 GM VIAL) IVPB ONE (13:45)
[2018-12-28 14:17] VITALS: BMI 31.2
[2018-12-28 15:08] LABS: PARV B19 IGG 1.9 index (0.0-0.8); PARV B19 IGM 0.1 index (0.0-0.8)
--- NOTE | 2018-12-28 15:25 | PN ---
Progress Note, Physician History of Present Illness: Pt seen and examined at bedside. She is awake and alert. She still complains of shortness of breath with ambulation. - Current Medication List Current Medications: Active Medications Acetaminophen (Tylenol -) 650 mg PO Q4H PRN PRN Reason: PAIN OR FEVER Last Admin: 12/27/18 15:01 Dose: 650 mg Albuterol/Ipratropium (Duoneb -) 1 amp NEB RQID [facility] Last Admin: 12/28/18 11:33 Dose: 1 amp Apixaban (Eliquis -) 5 mg PO BID [facility] Last Admin: 12/28/18 11:19 Dose: 5 mg Atenolol (Tenormin -) 25 mg PO DAILY [facility] Last Admin: 12/28/18 11:19 Dose: 25 mg Budesonide/Formoterol Fumarate (Symbicort 160/4.5mcg -) 1 puff IH BID [facility] Last Admin: 12/28/18 11:21 Dose: 1 puff Docusate Sodium (Colace -) 200 mg PO HS [facility] Last Admin: 12/27/18 21:46 Dose: 200 mg Duloxetine HCl (Cymbalta -) 30 mg PO BID [facility] Last Admin: 12/28/18 13:04 Dose: 30 mg Folic Acid (Folic Acid -) 1 mg PO DAILY [facility] Last Admin: 12/28/18 11:19 Dose: 1 mg Gabapentin (Neurontin -) 300 mg PO BID [facility] Last Admin: 12/28/18 11:19 Dose: 300 mg Azithromycin (Zithromax 500mg Ivpb (Pre-Docked)) 500 mg in 250 mls @ 250 mls/ hr IVPB DAILY [facility] Last Admin: 12/28/18 11:20 Dose: 250 mls/hr Ceftriaxone Sodium 1 gm/ (Dextrose) 50 mls @ 200 mls/hr IVPB DAILY [facility]; Protocol Last Admin: 12/28/18 11:20 Dose: 200 mls/hr Insulin Aspart (Novolog Vial Sliding Scale -) 1 vial SQ ACHS [facility]; Protocol Last Admin: 12/28/18 12:34 Dose: Not Given Ipratropium [place] (Atrovent 0.02% Nebulizer -) 1 amp NEB Q6H PRN PRN Reason: ASTHMA Last Admin: 12/26/18 05:00 Dose: 1 amp Magnesium Oxide (Mag-Ox -) 400 mg PO DAILY [facility] Last Admin: 12/28/18 11:19 Dose: 400 mg Methimazole (Tapazole -) 5 mg PO DAILY [facility] Last Admin: 12/28/18 13:05 Dose: 5 mg Methylprednisolone Sodium Succinate (Solu-Medrol -) 40 mg IVPUSH Q8H-IV [facility] Last Admin: 12/28/18 13:07 Dose: 40 mg Montelukast Sodium (Singulair -) 10 mg PO HS [facility] Last Admin: 12/27/18 21:48 Dose: 10 mg Ondansetron HCl (Zofran Injection) 8 mg IVPB Q6H PRN PRN Reason: NAUSEA Oxycodone HCl (Oxycontin -) 40 mg PO BID [facility] Last Admin: 12/28/18 11:18 Dose: 40 mg Pantoprazole Sodium (Protonix -) 20 mg PO BID [facility] Last Admin: 12/28/18 11:19 Dose: 20 mg Polyethylene Glycol (Miralax (For Daily Use) -) 17 gm PO DAILY [facility] Last Admin: 12/28/18 13:06 Dose: Not Given Senna (Senna -) 1 tab PO BID [facility] Last Admin: 12/28/18 11:19 Dose: 1 tab Sitagliptin Phosphate (Januvia -) 25 mg PO DAILY@0700 [facility] Last Admin: 12/28/18 06:41 Dose: 25 mg Tamsulosin HCl (Flomax -) 0.4 mg PO DAILY@0830 [facility] Last Admin: 12/28/18 08:05 Dose: 0.4 mg - Objective Vital Signs: Vital Signs Temperature 98.8 F 12/28/18 08:07 Pulse Rate 94 H 12/28/18 08:07 Respiratory Rate 20 12/28/18 08:07 Blood Pressure 150/82 12/28/18 08:07 O2 Sat by Pulse Oximetry (%) 95 12/27/18 21:00 Constitutional: Yes: Calm Eyes: Yes: Conjunctiva Clear HENT: Yes: Atraumatic Neck: Yes: Supple Cardiovascular: Yes: S1, S2 Respiratory: Yes: On Nasal O2, Wheezes Gastrointestinal: Yes: Soft Genitourinary: Yes: WNL Musculoskeletal: Yes: WNL Edema: No Neurological: Yes: Oriented Psychiatric: Yes: Oriented Labs: CBC, BMP 12/27/18 07:05 12/28/18 06:00 INR, PTT INR 1.81 (0.83-1.09) H 12/22/18 18:46 Problem List - Problems (1) GUCCI (acute kidney injury) Code(s): N17.9 - ACUTE KIDNEY FAILURE, UNSPECIFIED Assessment/Plan Current Medications Generic Name Dose Route Start Last Admin Trade Name Freq PRN Reason Stop Dose Admin Acetaminophen 650 mg 12/25/18 21:33 12/27/18 15:01 Tylenol - PO 650 mg Q4H PRN Administration PAIN OR FEVER Albuterol/Ipratropium 1 amp 12/26/18 08:00 12/28/18 11:33 Duoneb - NEB 1 amp RQID [facility] Administration Apixaban 5 mg 12/25/18 22:00 12/28/18 11:19 Eliquis - PO 5 mg BID [facility] Administration Atenolol 25 mg 12/26/18 10:00 12/28/18 11:19 Tenormin - PO 25 mg DAILY [facility] Administration Budesonide/Formoterol Fumarate 1 puff 12/25/18 22:00 12/28/18 11:21 Symbicort 160/4.5mcg - IH 1 puff BID [facility] Administration Docusate Sodium 200 mg 12/25/18 22:00 12/27/18 21:46 Colace - PO 200 mg HS [facility] Administration Duloxetine HCl 30 mg 12/25/18 22:00 12/28/18 13:04 Cymbalta - PO 30 mg BID [facility] Administration Folic Acid 1 mg 12/26/18 10:00 12/28/18 11:19 Folic Acid - PO 1 mg DAILY [facility] Administration Gabapentin 300 mg 12/25/18 22:00 12/28/18 11:19 Neurontin - PO 300 mg BID [facility] Administration Azithromycin 500 mg in 250 mls @ 250 mls/hr 12/26/18 10:00 12/28/18 11:20 Zithromax 500mg Ivpb (Pre-Docked) IVPB 250 mls/hr DAILY [facility] Administration Ceftriaxone Sodium 1 gm/ 50 mls @ 200 mls/hr 12/26/18 10:00 12/28/18 11:20 Dextrose IVPB 200 mls/hr DAILY [facility] Administration Protocol Insulin Aspart 1 vial 12/25/18 22:00 12/28/18 12:34 Novolog Vial Sliding Scale - SQ Not Given ACHS [facility] Protocol Ipratropium [place] 1 amp 12/25/18 21:33 12/26/18 05:00 Atrovent 0.02% Nebulizer - NEB 1 amp Q6H PRN Administration ASTHMA Magnesium Oxide 400 mg 12/27/18 13:30 12/28/18 11:19 Mag-Ox - PO 400 mg DAILY [facility] Administration Methimazole 5 mg 12/26/18 10:00 12/28/18 13:05 Tapazole - PO 5 mg DAILY [facility] Administration Methylprednisolone Sodium Succinate 40 mg 12/28/18 12:15 12/28/18 13:07 Solu-Medrol - IVPUSH 40 mg Q8H-IV [facility] Administration Montelukast Sodium 10 mg 12/25/18 22:00 12/27/18 21:48 Singulair - PO 10 mg HS [facility] Administration Ondansetron HCl 8 mg 12/25/18 21:33 Zofran Injection IVPB Q6H PRN NAUSEA Oxycodone HCl 40 mg 12/25/18 22:00 12/28/18 11:18 Oxycontin - PO 40 mg BID [facility] Administration Pantoprazole Sodium 20 mg 12/25/18 22:00 12/28/18 11:19 Protonix - PO 20 mg BID [facility] Administration Polyethylene Glycol 17 gm 12/26/18 10:00 12/28/18 13:06 Miralax (For Daily Use) - PO Not Given DAILY [facility] Senna 1 tab 12/25/18 22:00 12/28/18 11:19 Senna - PO 1 tab BID [facility] Administration Sitagliptin Phosphate 25 mg 12/26/18 07:00 12/28/18 06:41 Januvia - PO 25 mg DAILY@0700 [facility] Administration Tamsulosin HCl 0.4 mg 12/26/18 08:30 12/28/18 08:05 Flomax - PO 0.4 mg DAILY@0830 [facility] Administration Impression 1. GUCCI 2. sickle cell disease 3. copd 4. dvt 5. dm Plan - monitor renal function - will give another dose of lasix - pulm input appreciated, pt going back on steroids - ct chest report reviewed - monitor volume status - repeat labs in am - avoid nsaids
[2018-12-28] MEDS ORDERED: FUROSEMIDE 40 MG TABLET (FP) PO ONE (15:26)
[2018-12-28] MEDS ORDERED: POTASSIUM CHLORIDE TABS 20 MEQ TABLET.ER (FP) PO ONE (15:26)
--- NOTE | 2018-12-28 18:09 | PN ---
Progress Note (short form) - Note Progress Note: feels weak less cough and wheezing Vital Signs Period Temp Pulse Resp BP Sys/Mendez Pulse Ox Last 24 Hr 98.7 F-99.4 F 83-95 18-20 140-159/80-91 95-95 cor-rrr lungs scattered wheeze abd soft,nt ext trace edema CBC, BMP 12/27/18 07:05 12/28/18 06:[address] probable bibasilar atelectasis Microbiology 12/23/18 06:00 Blood - Peripheral Venous Blood Culture - Final NO GROWTH AFTER 5 DAYS INCUBATION 12/23/18 03:45 Blood - Peripheral Venous Blood Culture - Final NO GROWTH AFTER 5 DAYS INCUBATION 12/23/18 02:05 Urine - Urine Clean Catch Urine Culture - Final NO GROWTH OBTAINED 12/23/18 10:45 Urine For Antigen Detection Legionella Antigen - Final 12/23/18 10:45 Urine For Antigen Detection Streptococcus pneumoniae Antigen (M - Final Current Medications Acetaminophen (Tylenol -) 650 mg PO Q4H PRN PRN Reason: PAIN OR FEVER Last Admin: 12/27/18 15:01 Dose: 650 mg Albuterol/Ipratropium (Duoneb -) 1 amp NEB RQID [facility] Last Admin: 12/28/18 16:31 Dose: 1 amp Apixaban (Eliquis -) 5 mg PO BID [facility] Last Admin: 12/28/18 11:19 Dose: 5 mg Atenolol (Tenormin -) 25 mg PO DAILY [facility] Last Admin: 12/28/18 11:19 Dose: 25 mg Budesonide/Formoterol Fumarate (Symbicort 160/4.5mcg -) 1 puff IH BID [facility] Last Admin: 12/28/18 11:21 Dose: 1 puff Docusate Sodium (Colace -) 200 mg PO HS [facility] Last Admin: 12/27/18 21:46 Dose: 200 mg Duloxetine HCl (Cymbalta -) 30 mg PO BID [facility] Last Admin: 12/28/18 13:04 Dose: 30 mg Folic Acid (Folic Acid -) 1 mg PO DAILY [facility] Last Admin: 12/28/18 11:19 Dose: 1 mg Gabapentin (Neurontin -) 300 mg PO BID [facility] Last Admin: 12/28/18 11:19 Dose: 300 mg Azithromycin (Zithromax 500mg Ivpb (Pre-Docked)) 500 mg in 250 mls @ 250 mls/ hr IVPB DAILY [facility] Last Admin: 12/28/18 11:20 Dose: 250 mls/hr Ceftriaxone Sodium 1 gm/ (Dextrose) 50 mls @ 200 mls/hr IVPB DAILY [facility]; Protocol Last Admin: 12/28/18 11:20 Dose: 200 mls/hr Insulin Aspart (Novolog Vial Sliding Scale -) 1 vial SQ ACHS [facility]; Protocol Last Admin: 12/28/18 17:55 Dose: Not Given Ipratropium [place] (Atrovent 0.02% Nebulizer -) 1 amp NEB Q6H PRN PRN Reason: ASTHMA Last Admin: 12/26/18 05:00 Dose: 1 amp Magnesium Oxide (Mag-Ox -) 400 mg PO DAILY [facility] Last Admin: 12/28/18 11:19 Dose: 400 mg Methimazole (Tapazole -) 5 mg PO DAILY [facility] Last Admin: 12/28/18 13:05 Dose: 5 mg Methylprednisolone Sodium Succinate (Solu-Medrol -) 40 mg IVPUSH Q8H-IV [facility] Last Admin: 12/28/18 13:07 Dose: 40 mg Montelukast Sodium (Singulair -) 10 mg PO HS [facility] Last Admin: 12/27/18 21:48 Dose: 10 mg Ondansetron HCl (Zofran Injection) 8 mg IVPB Q6H PRN PRN Reason: NAUSEA Oxycodone HCl (Oxycontin -) 40 mg PO BID [facility] Last Admin: 12/28/18 11:18 Dose: 40 mg Pantoprazole Sodium (Protonix -) 20 mg PO BID [facility] Last Admin: 12/28/18 11:19 Dose: 20 mg Polyethylene Glycol (Miralax (For Daily Use) -) 17 gm PO DAILY [facility] Last Admin: 12/28/18 13:06 Dose: Not Given Senna (Senna -) 1 tab PO BID [facility] Last Admin: 12/28/18 11:19 Dose: 1 tab Sitagliptin Phosphate (Januvia -) 25 mg PO DAILY@0700 [facility] Last Admin: 12/28/18 06:41 Dose: 25 mg Tamsulosin HCl (Flomax -) 0.4 mg PO DAILY@0830 [facility] Last Admin: 12/28/18 08:05 Dose: 0.4 mg a/p cannot r/o pneumonia with cough/wheezing- SCD-s/p transfusion multiple antibiotic allergies acute renal failure resolved ?congestion- volume overload- received lasix today continue antibiotics day #5 ceftriaxone/zithromax will d/c Problem List - Problems (1) Sepsis Code(s): A41.9 - SEPSIS, UNSPECIFIED ORGANISM (2) Acute renal failure Code(s): N17.9 - ACUTE KIDNEY FAILURE, UNSPECIFIED (3) Sickle cell anemia Code(s): D57.1 - SICKLE-CELL DISEASE WITHOUT CRISIS Qualifiers: Sickle-cell associated disorders: without crisis Qualified Code(s): D57.1 - Sickle-cell disease without crisis (4) Allergy to multiple antibiotics Code(s): Z88.1 - ALLERGY STATUS TO OTHER ANTIBIOTIC AGENTS STATUS
[2018-12-28] MEDS: DOCUSATE SODIUM 100 MG CAPSULE (FP) PO SCH (22:09)
[2018-12-28] MEDS: MONTELUKAST NA 10 MG TABLET PO SCH (22:09)
[2018-12-29] MEDS: methylPREDNISolone NA SUCC 40 MG/1 ML VIAL IVPUSH SCH ×3 (01:39→17:31)
--- NOTE | 2018-12-29 06:53 | PN ---
Progress Note (short form) - Note Progress Note: Patient seen and examined Still with some shortness of breath. Started steroid per pulmonary team AFVSS Cor: RSR, No murmurs, No gallops Lungs: Clear to P&A Abd: Soft, Normal bowel sounds, No organomegaly Ext:No significant edema Labs/Meds reviewed A/P 73 y/o patient with SC disease followed by Dr. Mcintosh at [facility], admitted for sepsis . Also home O2 dependent. Now with shortness of breath. CT shows ground glass opacities in RUL. No pneumonia On steroids for COPD exacerbation Getting PRBCs for Hgb 7.6 will discuss with pulmonary team --? pulmonary HTN related to SC disease
[2018-12-29] MEDS: INSULIN SLIDING SCALE (NOVOLOG) 1 VIAL SQ SCH ×4 (06:59→23:46)
[2018-12-29] MEDS: ALBUTEROL SO4 2.5/IPRATROPIUM 0.5 INH SOL 3 ML VIAL.NEB. NEB SCH ×4 (07:35→20:15)
[2018-12-29 08:47] LABS: BASO % 0.9 % (0-2.0); EOS % 0.1 % (0-4.5); HEMATOCRIT 28.1 % (32.4-45.2); HEMOGLOBIN 9.4 GM/dL (10.7-15.3); LYMPH % 8.9 % (8-40); MCH 28.1 pg (25.7-33.7); MCHC 33.7 g/dl (32.0-36.0); MEAN CELL VOLUME 83.6 fl (80-96); MEAN PLT VOLUME 7.9 fl (7.5-11.1); MONO % 7.7 % (3.8-10.2); NEUT % 82.4 % (42.8-82.8); PLATELET COUNT 295 K/MM3 (134-434); RBC 3.36 M/mm3 (3.60-5.2); RDW 17.7 % (11.6-15.6); WHITE BLOOD COUNT 12.4 K/mm3 (4.0-10.0)
[2018-12-29 09:03] LABS: BILIRUBIN,TOTAL 0.6 mg/dL (0.2-1); BLOOD UREA NITROGEN 18.7 mg/dL (7-18); CALCIUM 9.4 mg/dL (8.5-10.1); CREATININE 0.9 mg/dL (0.55-1.3); POTASSIUM 4.9 mmol/L (3.5-5.1); TOT PROT 7.4 g/dl (6.4-8.2)
[2018-12-29] MEDS ORDERED: cefTRIAXone SODIUM 1 GM VIAL ONE (09:54)
[2018-12-29] MEDS ORDERED: DEXTROSE 5%-WATER - 50 ML IVPB ONE (09:54)
[2018-12-29] MEDS: FOLIC ACID 1 MG TABLET (FP) PO SCH (09:57)
[2018-12-29] MEDS: SENNOSIDES 8.6MG TABLET (FP) PO SCH ×2 (09:57→23:47)
[2018-12-29] MEDS: TAMSULOSIN HCL 0.4 MG CAP PO SCH (09:58)
[2018-12-29] MEDS: ATENOLOL 25 MG TABLET (FP) PO SCH (09:58)
[2018-12-29] MEDS: MAGNESIUM OXIDE 400 MG TABLET (FP) PO SCH (09:58)
[2018-12-29] MEDS: APIXABAN 5 MG TABLET PO SCH ×2 (09:58→23:48)
[2018-12-29] MEDS: GABAPENTIN 300 MG CAPSULE (FP) PO SCH ×2 (09:59→23:48)
[2018-12-29] MEDS: DULoxetine HCL 30 MG CAPSULE.DR PO SCH ×2 (09:59→23:47)
[2018-12-29] MEDS: PANTOPRAZOLE 20 MG TABLET (FP) PO SCH ×2 (09:59→23:48)
[2018-12-29] MEDS: oxyCODONE HCL 20 MG SUSTAINED ACTING TABLET PO SCH ×2 (10:00→23:47)
[2018-12-29] MEDS: CEFTRIAXONE 1 GM in DEXTROSE 5%-WATER - 50 ML IVPB SCH (10:00)
[2018-12-29] MEDS: METHIMAZOLE 5 MG TABLET (FP) PO SCH (10:00)
[2018-12-29] MEDS: POLYETHYLENE GLYCOL 3350 119 GM BTL PO SCH (10:13)
--- NOTE | 2018-12-29 10:28 | PN ---
Progress Note (short form) - Note Progress Note: feels well s/p transfusion still some wheezing- she still coughs at baseline Vital Signs Period Temp Pulse Resp BP Sys/Mendez Pulse Ox Last 24 Hr 98.6 F-99.4 F 77-95 18-20 137-150/62-88 96 cor-rrr lungs bilateral wheezing abd soft,nt ext no edema CBC, BMP 12/29/18 07:54 12/29/18 07:54 Microbiology 12/23/18 06:00 Blood - Peripheral Venous Blood Culture - Final NO GROWTH AFTER 5 DAYS INCUBATION 12/23/18 03:45 Blood - Peripheral Venous Blood Culture - Final NO GROWTH AFTER 5 DAYS INCUBATION 12/23/18 02:05 Urine - Urine Clean Catch Urine Culture - Final NO GROWTH OBTAINED 12/23/18 10:45 Urine For Antigen Detection Legionella Antigen - Final 12/23/18 10:45 Urine For Antigen Detection Streptococcus pneumoniae Antigen (M - Final chest ct probable bibasilar atelectasis Microbiology 12/23/18 06:00 Blood - Peripheral Venous Blood Culture - Final NO GROWTH AFTER 5 DAYS INCUBATION 12/23/18 03:45 Blood - Peripheral Venous Blood Culture - Final NO GROWTH AFTER 5 DAYS INCUBATION 12/23/18 02:05 Urine - Urine Clean Catch Urine Culture - Final NO GROWTH OBTAINED 12/23/18 10:45 Urine For Antigen Detection Legionella Antigen - Final 12/23/18 10:45 Urine For Antigen Detection Streptococcus pneumoniae Antigen (M - Final Current Medications Acetaminophen (Tylenol -) 650 mg PO Q4H PRN PRN Reason: PAIN OR FEVER Last Admin: 12/27/18 15:01 Dose: 650 mg Albuterol/Ipratropium (Duoneb -) 1 amp NEB RQID [facility] Last Admin: 12/28/18 16:31 Dose: 1 amp Apixaban (Eliquis -) 5 mg PO BID [facility] Last Admin: 12/28/18 11:19 Dose: 5 mg Atenolol (Tenormin -) 25 mg PO DAILY [facility] Last Admin: 12/28/18 11:19 Dose: 25 mg Budesonide/Formoterol Fumarate (Symbicort 160/4.5mcg -) 1 puff IH BID [facility] Last Admin: 12/28/18 11:21 Dose: 1 puff Docusate Sodium (Colace -) 200 mg PO HS [facility] Last Admin: 12/27/18 21:46 Dose: 200 mg Duloxetine HCl (Cymbalta -) 30 mg PO BID [facility] Last Admin: 12/28/18 13:04 Dose: 30 mg Folic Acid (Folic Acid -) 1 mg PO DAILY [facility] Last Admin: 12/28/18 11:19 Dose: 1 mg Gabapentin (Neurontin -) 300 mg PO BID [facility] Last Admin: 12/28/18 11:19 Dose: 300 mg Azithromycin (Zithromax 500mg Ivpb (Pre-Docked)) 500 mg in 250 mls @ 250 mls/ hr IVPB DAILY [facility] Last Admin: 12/28/18 11:20 Dose: 250 mls/hr Ceftriaxone Sodium 1 gm/ (Dextrose) 50 mls @ 200 mls/hr IVPB DAILY [facility]; Protocol Last Admin: 12/28/18 11:20 Dose: 200 mls/hr Insulin Aspart (Novolog Vial Sliding Scale -) 1 vial SQ ACHS [facility]; Protocol Last Admin: 12/28/18 17:55 Dose: Not Given Ipratropium [place] (Atrovent 0.02% Nebulizer -) 1 amp NEB Q6H PRN PRN Reason: ASTHMA Last Admin: 12/26/18 05:00 Dose: 1 amp Magnesium Oxide (Mag-Ox -) 400 mg PO DAILY [facility] Last Admin: 12/28/18 11:19 Dose: 400 mg Methimazole (Tapazole -) 5 mg PO DAILY [facility] Last Admin: 12/28/18 13:05 Dose: 5 mg Methylprednisolone Sodium Succinate (Solu-Medrol -) 40 mg IVPUSH Q8H-IV [facility] Last Admin: 12/28/18 13:07 Dose: 40 mg Montelukast Sodium (Singulair -) 10 mg PO HS [facility] Last Admin: 12/27/18 21:48 Dose: 10 mg Ondansetron HCl (Zofran Injection) 8 mg IVPB Q6H PRN PRN Reason: NAUSEA Oxycodone HCl (Oxycontin -) 40 mg PO BID [facility] Last Admin: 12/28/18 11:18 Dose: 40 mg Pantoprazole Sodium (Protonix -) 20 mg PO BID [facility] Last Admin: 12/28/18 11:19 Dose: 20 mg Polyethylene Glycol (Miralax (For Daily Use) -) 17 gm PO DAILY [facility] Last Admin: 12/28/18 13:06 Dose: Not Given Senna (Senna -) 1 tab PO BID [facility] Last Admin: 12/28/18 11:19 Dose: 1 tab Sitagliptin Phosphate (Januvia -) 25 mg PO DAILY@0700 [facility] Last Admin: 12/28/18 06:41 Dose: 25 mg Tamsulosin HCl (Flomax -) 0.4 mg PO DAILY@0830 [facility] Last Admin: 12/28/18 08:05 Dose: 0.4 mg a/p cannot r/o pneumonia with cough/wheezing- day #7 antiibotics, has completed 5 days zithromax, can d/c antibiotics in am SCD-s/p transfusion multiple antibiotic allergies acute renal failure resolved ?congestion- appears improved after transfusion and lasix repeat cbc in am please call back if needed Problem List - Problems (1) Sepsis Code(s): A41.9 - SEPSIS, UNSPECIFIED ORGANISM (2) Acute renal failure Code(s): N17.9 - ACUTE KIDNEY FAILURE, UNSPECIFIED (3) Sickle cell anemia Code(s): D57.1 - SICKLE-CELL DISEASE WITHOUT CRISIS Qualifiers: Sickle-cell associated disorders: without crisis Qualified Code(s): D57.1 - Sickle-cell disease without crisis (4) Allergy to multiple antibiotics Code(s): Z88.1 - ALLERGY STATUS TO OTHER ANTIBIOTIC AGENTS STATUS
[2018-12-29] MEDS: BUDESONIDE/FORMETEROL FUMARATE 160/4.5 mcg INHALER IH SCH ×2 (10:34→23:50)
--- NOTE | 2018-12-29 12:04 | PN ---
Progress Note, Physician Chief Complaint: Cough Pneumonia Sickle Cell Disease Lower Back Pain History of Present Illness: Previous notes and events reviewed awake and alert NAD downtrend in WBC Hg 9.4 s/p transfusion complain of nonproductive cough - Current Medication List Current Medications: Active Medications Acetaminophen (Tylenol -) 650 mg PO Q4H PRN PRN Reason: PAIN OR FEVER Last Admin: 12/27/18 15:01 Dose: 650 mg Albuterol/Ipratropium (Duoneb -) 1 amp NEB RQID [facility] Last Admin: 12/29/18 07:35 Dose: 1 amp Apixaban (Eliquis -) 5 mg PO BID [facility] Last Admin: 12/29/18 09:58 Dose: 5 mg Atenolol (Tenormin -) 25 mg PO DAILY [facility] Last Admin: 12/29/18 09:58 Dose: 25 mg Budesonide/Formoterol Fumarate (Symbicort 160/4.5mcg -) 1 puff IH BID [facility] Last Admin: 12/28/18 22:08 Dose: 1 puff Docusate Sodium (Colace -) 200 mg PO HS [facility] Last Admin: 12/28/18 22:09 Dose: 200 mg Duloxetine HCl (Cymbalta -) 30 mg PO BID [facility] Last Admin: 12/29/18 09:59 Dose: 30 mg Folic Acid (Folic Acid -) 1 mg PO DAILY [facility] Last Admin: 12/29/18 09:57 Dose: 1 mg Gabapentin (Neurontin -) 300 mg PO BID [facility] Last Admin: 12/29/18 09:59 Dose: 300 mg Ceftriaxone Sodium 1 gm/ (Dextrose) 50 mls @ 200 mls/hr IVPB DAILY [facility]; Protocol Last Admin: 12/29/18 10:00 Dose: 200 mls/hr Insulin Aspart (Novolog Vial Sliding Scale -) 1 vial SQ ACHS [facility]; Protocol Last Admin: 12/29/18 06:59 Dose: Not Given Ipratropium [place] (Atrovent 0.02% Nebulizer -) 1 amp NEB Q6H PRN PRN Reason: ASTHMA Last Admin: 12/26/18 05:00 Dose: 1 amp Magnesium Oxide (Mag-Ox -) 400 mg PO DAILY [facility] Last Admin: 12/29/18 09:58 Dose: 400 mg Methimazole (Tapazole -) 5 mg PO DAILY [facility] Last Admin: 12/29/18 10:00 Dose: 5 mg Methylprednisolone Sodium Succinate (Solu-Medrol -) 40 mg IVPUSH Q8H-IV [facility] Last Admin: 12/29/18 09:58 Dose: 40 mg Montelukast Sodium (Singulair -) 10 mg PO HS [facility] Last Admin: 12/28/18 22:09 Dose: 10 mg Ondansetron HCl (Zofran Injection) 8 mg IVPB Q6H PRN PRN Reason: NAUSEA Oxycodone HCl (Oxycontin -) 40 mg PO BID [facility] Last Admin: 12/29/18 10:00 Dose: 40 mg Pantoprazole Sodium (Protonix -) 20 mg PO BID [facility] Last Admin: 12/29/18 09:59 Dose: 20 mg Polyethylene Glycol (Miralax (For Daily Use) -) 17 gm PO DAILY [facility] Last Admin: 12/29/18 10:13 Dose: Not Given Senna (Senna -) 1 tab PO BID [facility] Last Admin: 12/29/18 09:57 Dose: 1 tab Sitagliptin Phosphate (Januvia -) 25 mg PO DAILY@0700 [facility] Last Admin: 12/29/18 06:59 Dose: 25 mg Tamsulosin HCl (Flomax -) 0.4 mg PO DAILY@0830 [facility] Last Admin: 12/29/18 09:58 Dose: 0.4 mg - Objective Vital Signs: Vital Signs Temperature 98.8 F 12/29/18 06:00 Pulse Rate 78 12/29/18 06:00 Respiratory Rate 18 12/29/18 06:00 Blood Pressure 146/83 12/29/18 06:00 O2 Sat by Pulse Oximetry (%) 96 12/28/18 21:00 Constitutional: Yes: No Distress, Calm Eyes: Yes: Conjunctiva Clear HENT: Yes: Atraumatic Cardiovascular: Yes: Regular Rate and Rhythm Respiratory: Yes: Regular, Diminished, On Nasal O2 Gastrointestinal: Yes: Normal Bowel Sounds, Soft Musculoskeletal: Yes: Back Pain, Muscle Weakness Extremities: Yes: WNL Edema: No Neurological: Yes: Alert, Oriented Psychiatric: Yes: Alert, Oriented Labs: CBC, BMP 12/29/18 07:54 12/29/18 07:54 INR, PTT INR 1.81 (0.83-1.09) H 12/22/18 18:46 Microbiology 12/23/18 06:00 Blood - Peripheral Venous Blood Culture - Final NO GROWTH AFTER 5 DAYS INCUBATION 12/23/18 03:45 Blood - Peripheral Venous Blood Culture - Final NO GROWTH AFTER 5 DAYS INCUBATION 12/23/18 02:05 Urine - Urine Clean Catch Urine Culture - Final NO GROWTH OBTAINED 12/23/18 10:45 Urine For Antigen Detection Legionella Antigen - Final 12/23/18 10:45 Urine For Antigen Detection Streptococcus pneumoniae Antigen (M - Final - ....Imaging Cat Scan: Report Reviewed Problem List - Problems (1) Chronic back pain Assessment/Plan: -pain control -PT Code(s): M54.9 - DORSALGIA, UNSPECIFIED; G89.29 - OTHER CHRONIC PAIN (2) Constipation Assessment/Plan: -Miralax, Senna Code(s): K59.00 - CONSTIPATION, UNSPECIFIED (3) GERD (gastroesophageal reflux disease) Assessment/Plan: -Pantoprazole Code(s): K21.9 - GASTRO-ESOPHAGEAL REFLUX DISEASE WITHOUT ESOPHAGITIS (4) Hyperthyroidism Assessment/Plan: -Methimazole -Endocrinology on board Code(s): E05.90 - THYROTOXICOSIS, UNSP WITHOUT THYROTOXIC CRISIS OR STORM (5) Afib Assessment/Plan: -Eliquis, Atenolol Code(s): I48.91 - UNSPECIFIED ATRIAL FIBRILLATION Qualifiers: Atrial fibrillation type: paroxysmal Qualified Code(s): I48.0 - Paroxysmal atrial fibrillation (6) Anemia Assessment/Plan: -Hg 9.4 -s/p PRBC transfusions -Hematology on board -Stool OB neg -Iron Profile reviewed Code(s): D64.9 - ANEMIA, UNSPECIFIED (7) COPD (chronic obstructive pulmonary disease) Assessment/Plan: -Pulm on board -Bronchodilators -Solumedrol IV -O2 via NC -keep SpO2 >90% -Symbicort -Montelukast -Chest CT scan shows mild mediastinal lymphadenopathy, bibasilar atelectasis and small pleural effusions, scattered areas of groundglass opacification most marked within RUL, no definite evidence of acute pneumonia Code(s): J44.9 - CHRONIC OBSTRUCTIVE PULMONARY DISEASE, UNSPECIFIED (8) Diabetes Assessment/Plan: -BGM ACHS -ISS -HgA1c <3.5% -Sitagliptan Code(s): E11.9 - TYPE 2 DIABETES MELLITUS WITHOUT COMPLICATIONS Qualifiers: Diabetes mellitus type: type 2 (9) Pneumonia Assessment/Plan: -Pulm on board -Bronchodilators -Solumedrol IV -O2 via NC -keep SpO2 >90% -Symbicort -Montelukast -Chest CT scan shows mild mediastinal lymphadenopathy, bibasilar atelectasis and small pleural effusions, scattered areas of groundglass opacification most marked within RUL, no definite evidence of acute pneumonia -Influenza neg -Urine Legionella neg -afebrile -BC neg -ID on board -Ceftriaxone Code(s): J18.9 - PNEUMONIA, UNSPECIFIED ORGANISM (10) HTN (hypertension) Assessment/Plan: -restarted Losartan -low Na diet Code(s): I10 - ESSENTIAL (PRIMARY) HYPERTENSION Qualifiers: Hypertension type: essential hypertension Qualified Code(s): I10 - Essential (primary) hypertension (11) Sepsis Assessment/Plan: -Pulm on board -Bronchodilators -Solumedrol IV -O2 via NC -keep SpO2 >90% -Symbicort -Montelukast -Chest CT scan shows mild mediastinal lymphadenopathy, bibasilar atelectasis and small pleural effusions, scattered areas of groundglass opacification most marked within RUL, no definite evidence of acute pneumonia -Influenza neg -Urine Legionella neg -afebrile -BC neg -ID on board -Ceftriaxone -LA 0.6 Code(s): A41.9 - SEPSIS, UNSPECIFIED ORGANISM (12) Sickle cell anemia Assessment/Plan: -Hematology -pain control -Folic acid Code(s): D57.1 - SICKLE-CELL DISEASE WITHOUT CRISIS Qualifiers: Sickle-cell associated disorders: without crisis Qualified Code(s): D57.1 - Sickle-cell disease without crisis Assessment/Plan see problem list
--- NOTE | 2018-12-29 13:32 | PN ---
Progress Note (short form) - Note Progress Note: Patient seen and examined Some SOB and cough Improvement overall in breathing -s/p transfusion and lasix Last Vital Signs Temp Pulse Resp BP Pulse Ox 98.8 F 78 18 146/83 96 12/29/18 06:00 12/29/18 06:00 12/29/18 06:00 12/29/18 06:00 12/28/18 21:00 HEENT: JOHN, EOM Intact Oropharynx: No thrush, No mucositis Cor: RSR, No murmurs, No gallops Lungs:rales bilateral lungs - anterior and posterior Abd: Soft, Normal bowel sounds, No organomegaly Ext:No significant edema Skin: No rashes, Integument intact CBC, BMP 12/29/18 07:54 12/29/18 07:54 Current Medications Generic Name Dose Route Start Last Admin Trade Name Freq PRN Reason Stop Dose Admin Acetaminophen 650 mg 12/25/18 21:33 12/27/18 15:01 Tylenol - PO 650 mg Q4H PRN Administration PAIN OR FEVER Albuterol/Ipratropium 1 amp 12/26/18 08:00 12/29/18 11:17 Duoneb - NEB 1 amp RQID [facility] Administration Apixaban 5 mg 12/25/18 22:00 12/29/18 09:58 Eliquis - PO 5 mg BID [facility] Administration Atenolol 25 mg 12/26/18 10:00 12/29/18 09:58 Tenormin - PO 25 mg DAILY [facility] Administration Budesonide/Formoterol Fumarate 1 puff 12/25/18 22:00 12/29/18 10:34 Symbicort 160/4.5mcg - IH 1 puff BID [facility] Administration Docusate Sodium 200 mg 12/25/18 22:00 12/28/18 22:09 Colace - PO 200 mg HS [facility] Administration Duloxetine HCl 30 mg 12/25/18 22:00 12/29/18 09:59 Cymbalta - PO 30 mg BID [facility] Administration Folic Acid 1 mg 12/26/18 10:00 12/29/18 09:57 Folic Acid - PO 1 mg DAILY [facility] Administration Gabapentin 300 mg 12/25/18 22:00 12/29/18 09:59 Neurontin - PO 300 mg BID [facility] Administration Ceftriaxone Sodium 1 gm/ 50 mls @ 200 mls/hr 12/26/18 10:00 12/29/18 10:00 Dextrose IVPB 200 mls/hr DAILY [facility] Administration Protocol Insulin Aspart 1 vial 12/25/18 22:00 12/29/18 12:33 Novolog Vial Sliding Scale - SQ Not Given ACHS [facility] Protocol Ipratropium [place] 1 amp 12/25/18 21:33 12/26/18 05:00 Atrovent 0.02% Nebulizer - NEB 1 amp Q6H PRN Administration ASTHMA Losartan Potassium 50 mg 12/30/18 10:00 Cozaar - PO DAILY [facility] Magnesium Oxide 400 mg 12/27/18 13:30 12/29/18 09:58 Mag-Ox - PO 400 mg DAILY [facility] Administration Methimazole 5 mg 12/26/18 10:00 12/29/18 10:00 Tapazole - PO 5 mg DAILY [facility] Administration Methylprednisolone Sodium Succinate 40 mg 12/28/18 12:15 12/29/18 09:58 Solu-Medrol - IVPUSH 40 mg Q8H-IV [facility] Administration Montelukast Sodium 10 mg 12/25/18 22:00 12/28/18 22:09 Singulair - PO 10 mg HS [facility] Administration Ondansetron HCl 8 mg 12/25/18 21:33 Zofran Injection IVPB Q6H PRN NAUSEA Oxycodone HCl 40 mg 12/25/18 22:00 12/29/18 10:00 Oxycontin - PO 40 mg BID [facility] Administration Pantoprazole Sodium 20 mg 12/25/18 22:00 12/29/18 09:59 Protonix - PO 20 mg BID [facility] Administration Polyethylene Glycol 17 gm 12/26/18 10:00 12/29/18 10:13 Miralax (For Daily Use) - PO Not Given DAILY [facility] Senna 1 tab 12/25/18 22:00 12/29/18 09:57 Senna - PO 1 tab BID [facility] Administration Sitagliptin Phosphate 25 mg 12/26/18 07:00 12/29/18 06:59 Januvia - PO 25 mg DAILY@0700 [facility] Administration Tamsulosin HCl 0.4 mg 12/26/18 08:30 12/29/18 09:58 Flomax - PO 0.4 mg DAILY@0830 [facility] Administration Impression: SC disease COPD Sepsis CT/ atelectasis /ground glass appearance lung - RUL S/P antibiotic therapy Anemia- normal B-12, folate, low TSH, elevated haptoglobin Fe++ studies --serum Fe++-45, TIBC--219, ferritin--331 compatible with chronic disease ?? component of blood loss. Plan: continue monitor P.T. Pulmonary follow up
--- NOTE | 2018-12-29 13:58 | PN ---
Progress Note, Physician History of Present Illness: pulmonary alert,oob-chair,still c/o sob - Current Medication List Current Medications: Active Medications Acetaminophen (Tylenol -) 650 mg PO Q4H PRN PRN Reason: PAIN OR FEVER Last Admin: 12/27/18 15:01 Dose: 650 mg Albuterol/Ipratropium (Duoneb -) 1 amp NEB RQID [facility] Last Admin: 12/29/18 11:17 Dose: 1 amp Apixaban (Eliquis -) 5 mg PO BID [facility] Last Admin: 12/29/18 09:58 Dose: 5 mg Atenolol (Tenormin -) 25 mg PO DAILY [facility] Last Admin: 12/29/18 09:58 Dose: 25 mg Budesonide/Formoterol Fumarate (Symbicort 160/4.5mcg -) 1 puff IH BID [facility] Last Admin: 12/29/18 10:34 Dose: 1 puff Docusate Sodium (Colace -) 200 mg PO HS [facility] Last Admin: 12/28/18 22:09 Dose: 200 mg Duloxetine HCl (Cymbalta -) 30 mg PO BID [facility] Last Admin: 12/29/18 09:59 Dose: 30 mg Folic Acid (Folic Acid -) 1 mg PO DAILY [facility] Last Admin: 12/29/18 09:57 Dose: 1 mg Gabapentin (Neurontin -) 300 mg PO BID [facility] Last Admin: 12/29/18 09:59 Dose: 300 mg Ceftriaxone Sodium 1 gm/ (Dextrose) 50 mls @ 200 mls/hr IVPB DAILY [facility]; Protocol Last Admin: 12/29/18 10:00 Dose: 200 mls/hr Insulin Aspart (Novolog Vial Sliding Scale -) 1 vial SQ ACHS [facility]; Protocol Last Admin: 12/29/18 12:33 Dose: Not Given Ipratropium [place] (Atrovent 0.02% Nebulizer -) 1 amp NEB Q6H PRN PRN Reason: ASTHMA Last Admin: 12/26/18 05:00 Dose: 1 amp Losartan Potassium (Cozaar -) 50 mg PO DAILY [facility] Magnesium Oxide (Mag-Ox -) 400 mg PO DAILY [facility] Last Admin: 12/29/18 09:58 Dose: 400 mg Methimazole (Tapazole -) 5 mg PO DAILY [facility] Last Admin: 12/29/18 10:00 Dose: 5 mg Methylprednisolone Sodium Succinate (Solu-Medrol -) 40 mg IVPUSH Q8H-IV [facility] Last Admin: 12/29/18 09:58 Dose: 40 mg Montelukast Sodium (Singulair -) 10 mg PO HS [facility] Last Admin: 12/28/18 22:09 Dose: 10 mg Ondansetron HCl (Zofran Injection) 8 mg IVPB Q6H PRN PRN Reason: NAUSEA Oxycodone HCl (Oxycontin -) 40 mg PO BID [facility] Last Admin: 12/29/18 10:00 Dose: 40 mg Pantoprazole Sodium (Protonix -) 20 mg PO BID [facility] Last Admin: 12/29/18 09:59 Dose: 20 mg Polyethylene Glycol (Miralax (For Daily Use) -) 17 gm PO DAILY [facility] Last Admin: 12/29/18 10:13 Dose: Not Given Senna (Senna -) 1 tab PO BID [facility] Last Admin: 12/29/18 09:57 Dose: 1 tab Sitagliptin Phosphate (Januvia -) 25 mg PO DAILY@0700 [facility] Last Admin: 12/29/18 06:59 Dose: 25 mg Tamsulosin HCl (Flomax -) 0.4 mg PO DAILY@0830 [facility] Last Admin: 12/29/18 09:58 Dose: 0.4 mg - Objective Vital Signs: Vital Signs Temperature 98.8 F 12/29/18 06:00 Pulse Rate 78 12/29/18 06:00 Respiratory Rate 18 12/29/18 06:00 Blood Pressure 146/83 12/29/18 06:00 O2 Sat by Pulse Oximetry (%) 96 12/28/18 21:00 Constitutional: Yes: Calm Eyes: Yes: WNL HENT: Yes: WNL Neck: Yes: WNL Cardiovascular: Yes: Regular Rate and Rhythm, S1, S2 Respiratory: Yes: Rhonchi (scattered wheezes and rhonchi) Gastrointestinal: Yes: Normal Bowel Sounds, Soft Extremities: Yes: WNL Edema: No Labs: CBC, BMP 12/29/18 07:54 12/29/18 07:54 INR, PTT INR 1.81 (0.83-1.09) H 12/22/18 18:46 Problem List - Problems (1) Acute renal failure Code(s): N17.9 - ACUTE KIDNEY FAILURE, UNSPECIFIED (2) Anemia Code(s): D64.9 - ANEMIA, UNSPECIFIED (3) COPD (chronic obstructive pulmonary disease) Code(s): J44.9 - CHRONIC OBSTRUCTIVE PULMONARY DISEASE, UNSPECIFIED (4) History of pulmonary embolism Code(s): Z86.711 - PERSONAL HISTORY OF PULMONARY EMBOLISM (5) Pneumonia Code(s): J18.9 - PNEUMONIA, UNSPECIFIED ORGANISM (6) Sickle cell anemia Code(s): D57.1 - SICKLE-CELL DISEASE WITHOUT CRISIS Qualifiers: Sickle-cell associated disorders: without crisis Qualified Code(s): D57.1 - Sickle-cell disease without crisis (7) HTN (hypertension) Code(s): I10 - ESSENTIAL (PRIMARY) HYPERTENSION Qualifiers: Hypertension type: essential hypertension Qualified Code(s): I10 - Essential (primary) hypertension Assessment/Plan A/P Pneumonia Septic Shock improved Acute Kidney Injury improved Hyponatremia resolving Acute COPD Exacerbation Chronic Hypoxic Respiratory Failure h/o PE/DVT DM Sickle Cell Anemia - antibiotics completed - steroids - inhaled bronchodilators - O2 to keep SpO2 90% - continue anticoagulation - lasix as needed DR PANDEY
--- NOTE | 2018-12-29 14:10 | PN ---
Progress Note, Physician History of Present Illness: Pt seen and examined at bedside. She feels that her breathing is improved today. - Current Medication List Current Medications: Active Medications Acetaminophen (Tylenol -) 650 mg PO Q4H PRN PRN Reason: PAIN OR FEVER Last Admin: 12/27/18 15:01 Dose: 650 mg Albuterol/Ipratropium (Duoneb -) 1 amp NEB RQID [facility] Last Admin: 12/29/18 11:17 Dose: 1 amp Apixaban (Eliquis -) 5 mg PO BID [facility] Last Admin: 12/29/18 09:58 Dose: 5 mg Atenolol (Tenormin -) 25 mg PO DAILY [facility] Last Admin: 12/29/18 09:58 Dose: 25 mg Budesonide/Formoterol Fumarate (Symbicort 160/4.5mcg -) 1 puff IH BID [facility] Last Admin: 12/29/18 10:34 Dose: 1 puff Docusate Sodium (Colace -) 200 mg PO HS [facility] Last Admin: 12/28/18 22:09 Dose: 200 mg Duloxetine HCl (Cymbalta -) 30 mg PO BID [facility] Last Admin: 12/29/18 09:59 Dose: 30 mg Folic Acid (Folic Acid -) 1 mg PO DAILY [facility] Last Admin: 12/29/18 09:57 Dose: 1 mg Gabapentin (Neurontin -) 300 mg PO BID [facility] Last Admin: 12/29/18 09:59 Dose: 300 mg Ceftriaxone Sodium 1 gm/ (Dextrose) 50 mls @ 200 mls/hr IVPB DAILY [facility]; Protocol Last Admin: 12/29/18 10:00 Dose: 200 mls/hr Insulin Aspart (Novolog Vial Sliding Scale -) 1 vial SQ ACHS [facility]; Protocol Last Admin: 12/29/18 12:33 Dose: Not Given Ipratropium [place] (Atrovent 0.02% Nebulizer -) 1 amp NEB Q6H PRN PRN Reason: ASTHMA Last Admin: 12/26/18 05:00 Dose: 1 amp Losartan Potassium (Cozaar -) 50 mg PO DAILY [facility] Magnesium Oxide (Mag-Ox -) 400 mg PO DAILY [facility] Last Admin: 12/29/18 09:58 Dose: 400 mg Methimazole (Tapazole -) 5 mg PO DAILY [facility] Last Admin: 12/29/18 10:00 Dose: 5 mg Methylprednisolone Sodium Succinate (Solu-Medrol -) 40 mg IVPUSH Q8H-IV [facility] Last Admin: 12/29/18 09:58 Dose: 40 mg Montelukast Sodium (Singulair -) 10 mg PO HS [facility] Last Admin: 12/28/18 22:09 Dose: 10 mg Ondansetron HCl (Zofran Injection) 8 mg IVPB Q6H PRN PRN Reason: NAUSEA Oxycodone HCl (Oxycontin -) 40 mg PO BID [facility] Last Admin: 12/29/18 10:00 Dose: 40 mg Pantoprazole Sodium (Protonix -) 20 mg PO BID [facility] Last Admin: 12/29/18 09:59 Dose: 20 mg Polyethylene Glycol (Miralax (For Daily Use) -) 17 gm PO DAILY [facility] Last Admin: 12/29/18 10:13 Dose: Not Given Senna (Senna -) 1 tab PO BID [facility] Last Admin: 12/29/18 09:57 Dose: 1 tab Sitagliptin Phosphate (Januvia -) 25 mg PO DAILY@0700 [facility] Last Admin: 12/29/18 06:59 Dose: 25 mg Tamsulosin HCl (Flomax -) 0.4 mg PO DAILY@0830 [facility] Last Admin: 12/29/18 09:58 Dose: 0.4 mg - Objective Vital Signs: Vital Signs Temperature 98.8 F 12/29/18 06:00 Pulse Rate 78 12/29/18 06:00 Respiratory Rate 18 12/29/18 06:00 Blood Pressure 146/83 12/29/18 06:00 O2 Sat by Pulse Oximetry (%) 96 12/28/18 21:00 Constitutional: Yes: Calm Eyes: Yes: Conjunctiva Clear HENT: Yes: Atraumatic Neck: Yes: Supple Cardiovascular: Yes: S1, S2 Respiratory: Yes: Wheezes Gastrointestinal: Yes: Soft Genitourinary: Yes: WNL Musculoskeletal: Yes: WNL Edema: No Neurological: Yes: Oriented Psychiatric: Yes: Oriented Labs: CBC, BMP 12/29/18 07:54 12/29/18 07:54 INR, PTT INR 1.81 (0.83-1.09) H 12/22/18 18:46 Problem List - Problems (1) GUCCI (acute kidney injury) Code(s): N17.9 - ACUTE KIDNEY FAILURE, UNSPECIFIED Assessment/Plan Current Medications Generic Name Dose Route Start Last Admin Trade Name Freq PRN Reason Stop Dose Admin Acetaminophen 650 mg 12/25/18 21:33 12/27/18 15:01 Tylenol - PO 650 mg Q4H PRN Administration PAIN OR FEVER Albuterol/Ipratropium 1 amp 12/26/18 08:00 12/29/18 11:17 Duoneb - NEB 1 amp RQID [facility] Administration Apixaban 5 mg 12/25/18 22:00 12/29/18 09:58 Eliquis - PO 5 mg BID [facility] Administration Atenolol 25 mg 12/26/18 10:00 12/29/18 09:58 Tenormin - PO 25 mg DAILY [facility] Administration Budesonide/Formoterol Fumarate 1 puff 12/25/18 22:00 12/29/18 10:34 Symbicort 160/4.5mcg - IH 1 puff BID S[facility]A Administration Docusate Sodium 200 mg 12/25/18 22:00 12/28/18 22:09 Colace - PO 200 mg HS S[facility]A Administration Duloxetine HCl 30 mg 12/25/18 22:00 12/29/18 09:59 Cymbalta - PO 30 mg BID [facility]A Administration Folic Acid 1 mg 12/26/18 10:00 12/29/18 09:57 Folic Acid - PO 1 mg DAILY [facility]A Administration Gabapentin 300 mg 12/25/18 22:00 12/29/18 09:59 Neurontin - PO 300 mg BID [facility] Administration Ceftriaxone Sodium 1 gm/ 50 mls @ 200 mls/hr 12/26/18 10:00 12/29/18 10:00 Dextrose IVPB 200 mls/hr DAILY [facility] Administration Protocol Insulin Aspart 1 vial 12/25/18 22:00 12/29/18 12:33 Novolog Vial Sliding Scale - SQ Not Given ACHS [facility] Protocol Ipratropium [place] 1 amp 12/25/18 21:33 12/26/18 05:00 Atrovent 0.02% Nebulizer - NEB 1 amp Q6H PRN Administration ASTHMA Losartan Potassium 50 mg 12/30/18 10:00 Cozaar - PO DAILY [facility] Magnesium Oxide 400 mg 12/27/18 13:30 12/29/18 09:58 Mag-Ox - PO 400 mg DAILY [facility] Administration Methimazole 5 mg 12/26/18 10:00 12/29/18 10:00 Tapazole - PO 5 mg DAILY [facility] Administration Methylprednisolone Sodium Succinate 40 mg 12/28/18 12:15 12/29/18 09:58 Solu-Medrol - IVPUSH 40 mg Q8H-IV [facility] Administration Montelukast Sodium 10 mg 12/25/18 22:00 12/28/18 22:09 Singulair - PO 10 mg HS [facility] Administration Ondansetron HCl 8 mg 12/25/18 21:33 Zofran Injection IVPB Q6H PRN NAUSEA Oxycodone HCl 40 mg 12/25/18 22:00 12/29/18 10:00 Oxycontin - PO 40 mg BID [facility] Administration Pantoprazole Sodium 20 mg 12/25/18 22:00 12/29/18 09:59 Protonix - PO 20 mg BID [facility] Administration Polyethylene Glycol 17 gm 12/26/18 10:00 12/29/18 10:13 Miralax (For Daily Use) - PO Not Given DAILY [facility] Senna 1 tab 12/25/18 22:00 12/29/18 09:57 Senna - PO 1 tab BID [facility] Administration Sitagliptin Phosphate 25 mg 12/26/18 07:00 12/29/18 06:59 Januvia - PO 25 mg DAILY@0700 [facility] Administration Tamsulosin HCl 0.4 mg 12/26/18 08:30 12/29/18 09:58 Flomax - PO 0.4 mg DAILY@0830 [facility] Administration Impression 1. GUCCI 2. sickle cell disease 3. copd 4. dvt 5. dm Plan - hold off lasix - steroids with taper as tolerated - pulm status is improved - ct chest report reviewed - monitor volume status - repeat labs in am - avoid nsaids
[2018-12-29] MEDS ORDERED: PT OWN MED DRAWER 7, Y5N ONE (23:05)
[2018-12-29] MEDS: MONTELUKAST NA 10 MG TABLET PO SCH (23:47)
[2018-12-29] MEDS: DOCUSATE SODIUM 100 MG CAPSULE (FP) PO SCH (23:48)
[2018-12-30] MEDS: methylPREDNISolone NA SUCC 40 MG/1 ML VIAL IVPUSH SCH ×2 (02:56→10:46)
[2018-12-30] MEDS: INSULIN SLIDING SCALE (NOVOLOG) 1 VIAL SQ SCH ×2 (07:40→14:16)
[2018-12-30] MEDS: TAMSULOSIN HCL 0.4 MG CAP PO SCH (07:40)
[2018-12-30] MEDS: ALBUTEROL SO4 2.5/IPRATROPIUM 0.5 INH SOL 3 ML VIAL.NEB. NEB SCH ×2 (08:20→11:25)
[2018-12-30 09:50] LABS: HEMOGLOBIN 9.4 GM/dL (10.7-15.3); MCH 28.7 pg (25.7-33.7); MCHC 33.5 g/dl (32.0-36.0); MEAN CELL VOLUME 85.4 fl (80-96); MEAN PLT VOLUME 8.1 fl (7.5-11.1); PLATELET COUNT 297 K/MM3 (134-434); RBC 3.28 M/mm3 (3.60-5.2); RDW 17.2 % (11.6-15.6)
[2018-12-30] MEDS ORDERED: LOSARTAN POTASSIUM 50 MG TABLET (FP) PO SCH (10:00)
[2018-12-30 10:20] LABS: BILIRUBIN,TOTAL 0.5 mg/dL (0.2-1); BLOOD UREA NITROGEN 17.2 mg/dL (7-18); CALCIUM 9.4 mg/dL (8.5-10.1); CREATININE 0.9 mg/dL (0.55-1.3); POTASSIUM 4.7 mmol/L (3.5-5.1); TOT PROT 7.2 g/dl (6.4-8.2)
[2018-12-30] MEDS ORDERED: PT OWN MED DRAWER 7, Y5N ONE (10:41)
[2018-12-30] MEDS ORDERED: DEXTROSE 5%-WATER - 50 ML IVPB ONE (10:41)
[2018-12-30] MEDS ORDERED: cefTRIAXone SODIUM 1 GM VIAL ONE (10:41)
[2018-12-30] MEDS: DULoxetine HCL 30 MG CAPSULE.DR PO SCH (10:44)
[2018-12-30] MEDS: SENNOSIDES 8.6MG TABLET (FP) PO SCH (10:45)
[2018-12-30] MEDS: oxyCODONE HCL 20 MG SUSTAINED ACTING TABLET PO SCH (10:45)
[2018-12-30] MEDS: PANTOPRAZOLE 20 MG TABLET (FP) PO SCH (10:45)
[2018-12-30] MEDS: GABAPENTIN 300 MG CAPSULE (FP) PO SCH (10:45)
[2018-12-30] MEDS: FOLIC ACID 1 MG TABLET (FP) PO SCH (10:46)
[2018-12-30] MEDS: CEFTRIAXONE 1 GM in DEXTROSE 5%-WATER - 50 ML IVPB SCH (10:46)
[2018-12-30] MEDS: ATENOLOL 25 MG TABLET (FP) PO SCH (10:46)
[2018-12-30] MEDS: APIXABAN 5 MG TABLET PO SCH (10:46)
[2018-12-30] MEDS: MAGNESIUM OXIDE 400 MG TABLET (FP) PO SCH (10:46)
[2018-12-30] MEDS: METHIMAZOLE 5 MG TABLET (FP) PO SCH (10:47)
[2018-12-30] MEDS: POLYETHYLENE GLYCOL 3350 119 GM BTL PO SCH ×2 (10:49→14:17)
[2018-12-30] MEDS: BUDESONIDE/FORMETEROL FUMARATE 160/4.5 mcg INHALER IH SCH (10:54)
--- NOTE | 2018-12-30 11:55 | PN ---
Progress Note (short form) - Note Progress Note: PULMONARY Breathing better today. Less cough and wheezing. Vital Signs Period Temp Pulse Resp BP Sys/Mendez Pulse Ox Last 24 Hr 98.4 F-99.3 F 76-86 18-22 120-161/71-87 97-99 Gen: NAD at rest Heart: RRR Lung: decreased breath sounds at the bases Abd: soft, nontender Ext: no edema CBC, BMP 12/30/18 07:15 12/30/18 07:15 Active Medications Acetaminophen (Tylenol -) 650 mg PO Q4H PRN PRN Reason: PAIN OR FEVER Last Admin: 12/27/18 15:01 Dose: 650 mg Albuterol/Ipratropium (Duoneb -) 1 amp NEB RQID [facility] Last Admin: 12/30/18 08:20 Dose: 1 amp Apixaban (Eliquis -) 5 mg PO BID [facility] Last Admin: 12/30/18 10:46 Dose: 5 mg Atenolol (Tenormin -) 25 mg PO DAILY [facility] Last Admin: 12/30/18 10:46 Dose: 25 mg Budesonide/Formoterol Fumarate (Symbicort 160/4.5mcg -) 1 puff IH BID [facility] Last Admin: 12/30/18 10:54 Dose: 1 puff Docusate Sodium (Colace -) 200 mg PO HS [facility] Last Admin: 12/29/18 23:48 Dose: 200 mg Duloxetine HCl (Cymbalta -) 30 mg PO BID [facility] Last Admin: 12/30/18 10:44 Dose: 30 mg Folic Acid (Folic Acid -) 1 mg PO DAILY [facility] Last Admin: 12/30/18 10:46 Dose: 1 mg Gabapentin (Neurontin -) 300 mg PO BID [facility] Last Admin: 12/30/18 10:45 Dose: 300 mg Insulin Aspart (Novolog Vial Sliding Scale -) 1 vial SQ ACHS [facility]; Protocol Last Admin: 12/30/18 07:40 Dose: Not Given Ipratropium [place] (Atrovent 0.02% Nebulizer -) 1 amp NEB Q6H PRN PRN Reason: ASTHMA Last Admin: 12/26/18 05:00 Dose: 1 amp Losartan Potassium (Cozaar -) 50 mg PO DAILY [facility] Last Admin: 12/30/18 10:45 Dose: 50 mg Magnesium Oxide (Mag-Ox -) 400 mg PO DAILY [facility] Last Admin: 12/30/18 10:46 Dose: 400 mg Methimazole (Tapazole -) 5 mg PO DAILY [facility] Last Admin: 12/30/18 10:47 Dose: 5 mg Methylprednisolone Sodium Succinate (Solu-Medrol -) 40 mg IVPUSH Q8H-IV [facility] Last Admin: 12/30/18 10:46 Dose: 40 mg Montelukast Sodium (Singulair -) 10 mg PO HS [facility] Last Admin: 12/29/18 23:47 Dose: 10 mg Ondansetron HCl (Zofran Injection) 8 mg IVPB Q6H PRN PRN Reason: NAUSEA Oxycodone HCl (Oxycontin -) 40 mg PO BID [facility] Last Admin: 12/30/18 10:45 Dose: 40 mg Pantoprazole Sodium (Protonix -) 20 mg PO BID [facility] Last Admin: 12/30/18 10:45 Dose: 20 mg Polyethylene Glycol (Miralax (For Daily Use) -) 17 gm PO DAILY [facility] Last Admin: 12/29/18 10:13 Dose: Not Given Senna (Senna -) 1 tab PO BID [facility] Last Admin: 12/30/18 10:45 Dose: 1 tab Sitagliptin Phosphate (Januvia -) 25 mg PO DAILY@0700 [facility] Last Admin: 12/30/18 07:40 Dose: 25 mg Tamsulosin HCl (Flomax -) 0.4 mg PO DAILY@0830 [facility] Last Admin: 12/30/18 07:40 Dose: 0.4 mg A/P Pneumonia Septic Shock improving Acute Kidney Injury Hyponatremia resolving Acute COPD Exacerbation Chronic Hypoxic Respirtory Failure h/o PE/DVT DM Sickle Cell Anemia - continue antibiotics - can change steroids to PO prednisone 40mg daily and taper as outpt - inhaled bronchodilators - O2 to keep SpO2 90% - continue anticoagulation
--- NOTE | 2018-12-30 11:58 | DS ---
Physical Examination Vital Signs: Vital Signs Temperature 99 F 12/30/18 09:42 Pulse Rate 86 12/30/18 09:42 Respiratory Rate 22 H 12/30/18 09:42 Blood Pressure 146/71 12/30/18 09:42 O2 Sat by Pulse Oximetry (%) 97 12/30/18 09:00 Findings/Remarks: Laboratory Results - last 24 hr 12/29/18 12/29/18 12/30/18 17:24 23:45 07:15 WBC 13.0 H RBC 3.28 L Hgb 9.4 L Hct 28.0 L MCV 85.4 MCH 28.7 MCHC 33.5 RDW 17.2 H Plt Count 297 MPV 8.1 Sodium Potassium Chloride Carbon Dioxide Anion Gap BUN Creatinine Est GFR (CKD-EPI)AfAm Est GFR (CKD-EPI)NonAf POC Glucometer 117 115 Random Glucose Calcium Total Bilirubin AST ALT Alkaline Phosphatase Total Protein Albumin 12/30/18 12/30/18 07:15 07:39 WBC RBC Hgb Hct MCV MCH MCHC RDW Plt Count MPV Sodium 139 Potassium 4.7 Chloride 99 Carbon Dioxide 35 H Anion Gap 4 L BUN 17.2 Creatinine 0.9 Est GFR (CKD-EPI)AfAm 73.00 Est GFR (CKD-EPI)NonAf 62.99 POC Glucometer 115 Random Glucose 102 Calcium 9.4 Total Bilirubin 0.5 AST 12 L ALT 8 L Alkaline Phosphatase 69 Total Protein 7.2 Albumin 3.0 L Active Medications Generic Name Dose Route Start Last Admin Trade Name Freq PRN Reason Stop Dose Admin Acetaminophen 650 mg 12/25/18 21:33 12/27/18 15:01 Tylenol - PO 650 mg Q4H PRN Administration PAIN OR FEVER Albuterol/Ipratropium 1 amp 12/26/18 08:00 12/30/18 11:25 Duoneb - NEB 1 amp RQID [facility]A Administration Apixaban 5 mg 12/25/18 22:00 12/30/18 10:46 Eliquis - PO 5 mg BID [facility] Administration Atenolol 25 mg 12/26/18 10:00 12/30/18 10:46 Tenormin - PO 25 mg DAILY [facility] Administration Budesonide/Formoterol Fumarate 1 puff 12/25/18 22:00 12/30/18 10:54 Symbicort 160/4.5mcg - IH 1 puff BID [facility] Administration Docusate Sodium 200 mg 12/25/18 22:00 12/29/18 23:48 Colace - PO 200 mg HS [facility] Administration Duloxetine HCl 30 mg 12/25/18 22:00 12/30/18 10:44 Cymbalta - PO 30 mg BID [facility] Administration Folic Acid 1 mg 12/26/18 10:00 12/30/18 10:46 Folic Acid - PO 1 mg DAILY [facility] Administration Gabapentin 300 mg 12/25/18 22:00 12/30/18 10:45 Neurontin - PO 300 mg BID [facility] Administration Insulin Aspart 1 vial 12/25/18 22:00 12/30/18 07:40 Novolog Vial Sliding Scale - SQ Not Given ACHS [facility] Protocol Ipratropium [place] 1 amp 12/25/18 21:33 12/26/18 05:00 Atrovent 0.02% Nebulizer - NEB 1 amp Q6H PRN Administration ASTHMA Losartan Potassium 50 mg 12/30/18 10:00 12/30/18 10:45 Cozaar - PO 50 mg DAILY [facility] Administration Magnesium Oxide 400 mg 12/27/18 13:30 12/30/18 10:46 Mag-Ox - PO 400 mg DAILY [facility] Administration Methimazole 5 mg 12/26/18 10:00 12/30/18 10:47 Tapazole - PO 5 mg DAILY [facility] Administration Methylprednisolone Sodium Succinate 40 mg 12/28/18 12:15 12/30/18 10:46 Solu-Medrol - IVPUSH 40 mg Q8H-IV [facility] Administration Montelukast Sodium 10 mg 12/25/18 22:00 12/29/18 23:47 Singulair - PO 10 mg HS [facility] Administration Ondansetron HCl 8 mg 12/25/18 21:33 Zofran Injection IVPB Q6H PRN NAUSEA Oxycodone HCl 40 mg 12/25/18 22:00 12/30/18 10:45 Oxycontin - PO 40 mg BID [facility] Administration Pantoprazole Sodium 20 mg 12/25/18 22:00 12/30/18 10:45 Protonix - PO 20 mg BID [facility] Administration Polyethylene Glycol 17 gm 12/26/18 10:00 12/29/18 10:13 Miralax (For Daily Use) - PO Not Given DAILY [facility] Senna 1 tab 12/25/18 22:00 12/30/18 10:45 Senna - PO 1 tab BID [facility] Administration Sitagliptin Phosphate 25 mg 12/26/18 07:00 12/30/18 07:40 Januvia - PO 25 mg DAILY@0700 [facility] Administration Tamsulosin HCl 0.4 mg 12/26/18 08:30 12/30/18 07:40 Flomax - PO 0.4 mg DAILY@0830 [facility] Administration Microbiology 12/23/18 06:00 Blood - Peripheral Venous Blood Culture - Final NO GROWTH AFTER 5 DAYS INCUBATION 12/23/18 03:45 Blood - Peripheral Venous Blood Culture - Final NO GROWTH AFTER 5 DAYS INCUBATION 12/23/18 02:05 Urine - Urine Clean Catch Urine Culture - Final NO GROWTH OBTAINED 12/23/18 10:45 Urine For Antigen Detection Legionella Antigen - Final 12/23/18 10:45 Urine For Antigen Detection Streptococcus pneumoniae Antigen (M - Final Constitutional: Yes: No Distress, Calm Eyes: Yes: Conjunctiva Clear HENT: Yes: Atraumatic Cardiovascular: Yes: Regular Rate and Rhythm Respiratory: Yes: Regular, Diminished, On Nasal O2 Gastrointestinal: Yes: Normal Bowel Sounds, Soft Musculoskeletal: Yes: WNL Extremities: Yes: WNL Edema: No Neurological: Yes: Alert, Oriented Psychiatric: Yes: Alert, Oriented Labs: CBC, BMP 12/30/18 07:15 12/30/18 07:15 Discharge Summary Problems reviewed: Yes Reason For Visit: SICKLE CELL DISEASE,BACK PAIN,SEPSIS,PNEUMONIA Current Active Problems Abdominal pain (Acute) Allergy to multiple antibiotics (Acute) Back pain (Acute) Chronic back pain (Acute) Constipation (Acute) GERD (gastroesophageal reflux disease) (Acute) Hyperthyroidism (Acute) Hypotension (Acute) Status post fall (Acute) Hospital Course: 73 year old female with a significant past medical history with of Sickle Cell Disease, COPD/Asthma, h/o of PE/DVT (apixaban), ?prior nephrolithiasis, DM type2 , and chronic lower back pain arrived to Emergency room for lower back pain radiating to the left groin, chest pain non-radiating stabbing with shortness of breath for 2-3 month associated with non-productive cough. Patient also report s/p fall yesterday and is complaining occipital head pain. Member also noted with weakness and complain of dysuria. No acute dizziness, fever, chills, N/V, constipation, diarrhea. Pulm on board and evaluated patient. Started on bronchodilators and Solumedrol IV. Started on IV Ceftriaxone.Chest CT scan shows mild mediastinal lymphadenopathy, bibasilar atelectasis and small pleural effusions, scattered areas of groundglass opacification most marked within RUL, no definite evidence of acute pneumonia. Influenza neg, urine Legionella neg, and BC neg. She was followed by ID. Antibiotics discontinued. Discharged home with prednisone taper. Condition: Stable - Instructions Diet, Activity, Other Instructions: follow up with PMD in 1 week follow up with Pulmonary Dr Stone for COPD follow up with Hematology Dr Calderon for Sickle cell disease follow up with Endocrinology Dr Wright for Hyperthyroidism, will need to repeat TSH level in 4 weeks PREDNISONE TPAER FOLLOWS: 40MG X 3 DAYS, 30MG X 3 DAYS, 20MG X 3 DAYS, 10MG X 3 DAYS continue with medication as prescribed return to ER if develop severe pain, respiratory distress, chest pain patient will have [facility] for PT services at home Referrals: Wilmra Stone MD [Staff Physician] - Javed Wilkinson MD [Primary Care Provider] - Diann Calderon MD [Staff Physician] - Tay Wright MD [Staff Physician] - Disposition: [facility]/HOME HEALTH CARE - Home Medications Comprehensive Discharge Medication List: Ambulatory Orders Folic Acid - 1 mg PO DAILY 02/11/13 Docusate Sodium [Colace -] 100 mg PO DAILY 04/06/15 Montelukast Na [Singulair -] 10 mg PO HS 04/06/15 Losartan Potassium [Cozaar -] 50 mg PO DAILY 01/21/18 oxyCODONE SR [Oxycontin] 40 mg PO Q12H 05/21/18 Acetaminophen [Tylenol .Regular Strength -] 650 mg PO Q4H PRN tablet 05/26/18 Albuterol 0.083% Nebulizer [place] [Ventolin 0.083% Nebulizer Soln -] 1 amp NEB Q4H PRN amp 05/26/18 Gabapentin [Neurontin -] 300 mg PO BID capsule 06/15/18 Omeprazole 20 mg PO BID 06/27/18 Albuterol 2.5/Ipratropium 0.5 [Duoneb -] 1 amp NEB RQID amp 06/30/18 Apixaban [Eliquis] 5 mg PO BID #30 tablet MDD 2 06/30/18 Atenolol [Tenormin -] 25 mg PO DAILY tablet 06/30/18 Budesonide/Formeterol Fumarate [SYMBICORT 160/4.5mcg -] 1 inh PO BID #1 cannister 06/30/18 Cholecalciferol (Vitamin D3) [Vitamin D3 -] 1,000 unit PO DAILY tab 06/30/18 Cholecalciferol (Vitamin D3) [Vitamin D3 -] 1,000 unit PO DAILY #30 tab Duloxetine HCl [Cymbalta -] 30 mg PO BID #30 capsule. MDD 2 06/30/18 Sitagliptin Phosphate [Januvia -] 25 mg PO DAILY@0700 tab 06/30/18 Sitagliptin Phosphate [Januvia] 25 mg PO DAILY #30 tablet MDD 1 06/30/18 Tamsulosin HCl [Flomax -] 0.4 mg PO DAILY@0830 #30 cap.er.24h MDD 1 06/30/18 Tamsulosin HCl [Flomax] 0.4 mg PO DAILY #30 cap.er.24h MDD 1 06/30/18
[2018-12-30 14:56] VITALS: BP 137/76; PULSE 79; TEMP 98.7
[2019-01-01 17:07] LABS: HGB SOLUBILITY Positive (Negative); Hgb C 35.7 % (0.0); Hgb F 2.4 % (0.0-2.0); Hgb S 40.5 % (0.0)
== END 2018-12-30 15:04 | disposition home health service (06) | DRG 871 ==
LOC: JER 16:51 → JERBED 20:48 → JICU 12-23 04:14 → J5S 12-25 19:39
PROVIDERS: ADMIT Internal Medicine; ATTEND Family Medicine
DX: A41.89 Other specified sepsis (principal); R65.21 Severe sepsis with septic shock; J18.9 Pneumonia, unspecified organism; N17.9 Acute kidney failure, unspecified; J44.1 Chronic obstructive pulmonary disease with (acute) exacerbation; J98.11 Atelectasis; E87.1 Hypo-osmolality and hyponatremia; J96.11 Chronic respiratory failure with hypoxia; J90 Pleural effusion, not elsewhere classified; D57.1 Sickle-cell disease without crisis; D72.829 Elevated white blood cell count, unspecified; E11.9 Type 2 diabetes mellitus without complications; K21.9 Gastro-esophageal reflux disease without esophagitis; K59.09 Other constipation; N31.9 Neuromuscular dysfunction of bladder, unspecified; I10 Essential (primary) hypertension; E86.0 Dehydration; M54.5 Low back pain; D64.9 Anemia, unspecified; I95.9 Hypotension, unspecified; M54.9 Dorsalgia, unspecified; E05.90 Thyrotoxicosis, unspecified without thyrotoxic crisis or storm; E66.9 Obesity, unspecified; R10.9 Unspecified abdominal pain; R11.2 Nausea with vomiting, unspecified; Z68.29 Body mass index [BMI] 29.0-29.9, adult; Z96.643 Presence of artificial hip joint, bilateral; Z91.81 History of falling; Z86.711 Personal history of pulmonary embolism; Z86.718 Personal history of other venous thrombosis and embolism; Z88.1 Allergy status to other antibiotic agents; Z99.81 Dependence on supplemental oxygen
CPT/HCPCS: 36415; 36430; 36511; 70450-TC; 71045-TC-FY; 71250-TC; 72125-TC; 74176-TC; 76775-TC; 76856-TC; 76937; 80048; 80053; 81003; 82272; 82565; 82607; 82728; 82962; 83010; 83021; 83036; 83540; 83550; 83605; 83615; 83735; 83880; 84100; 84300; 84439; 84443; 84480; 84484; 85025; 85027; 85044; 85610; 85660; 85730; 86747; 86850; 86900; 86901; 86922; 87040; 87086; 87804; 87899; 93005; 93010; 93306-TC; 93970-TC; 94010; 94640; 97116-GP; 97162-GP; 99285-25; G0480; J0131; J7030; P9038; P9058

== ENCOUNTER 2019-03-10 11:49 | Inpatient (IN) | payer OTHER ==
[2019-03-10 12:03] VITALS: BMI 28.9
--- NOTE | 2019-03-10 12:19 | PDOC ---
History of Present Illness - General Chief Complaint: Choking Sensation Stated Complaint: VOMITING Time Seen by Provider: 03/10/19 12:17 History Source: Patient Exam Limitations: No Limitations - History of Present Illness Initial Comments: 03/10/19 12:17 PCP: Dr. Jasso HPI: 74yo F PMH Sickle Cell Disease, COPD (3.5L home O2, symbicort and spiriva) , prior GUCCI, PE/DVT (apixaban), chronic lower back pain (on gabapentin 300TID, oxycodone 40mg BID) and Asthma who presents with choking sensation after eating a brussel sprout last night. Patient was in a restaurant eating brussel sprouts when she felt the sensation of choking, she experienced small volume emesis with continued globus sensation. She went home, attempted to take her medication , immediately throwing up the water and pills, this morning the same thing occurred. She reports inability to tolerate any fodo or water by mouth without immediately throwing it up. Denies any chest pain but rather a fullness low on her sternum. Reports she is breathing well, never wheezing, never short of breath with this episode. Prior episode of food impaction with steak, removed here by GI in the OR, approximately 1 year ago. Reports she has had issues with choking all her life, but they have become more frequent in recent years. All: Per chart Meds: Per chart PMH: As above PSH: Per chart Past History - Travel Traveled outside of the country in the last 30 days: No Close contact w/someone who was outside of country & ill: No - Past Medical History Allergies/Adverse Reactions: Allergies Allergy/AdvReac Type Severity Reaction Status Date / Time ciprofloxacin [From Cipro] Allergy Itching Verified 03/10/19 13:09 ciprofloxacin HCl Allergy Itching Verified 03/10/19 13:09 [From Cipro] codeine [Codeine] Allergy Verified 03/10/19 13:09 levofloxacin [From Levaquin] Allergy Itching Verified 03/10/19 13:09 Penicillins Allergy Itching Verified 03/10/19 13:09 Sulfa (Sulfonamide Allergy Verified 03/10/19 13:09 Antibiotics) tetanus immune globulin Allergy Verified 03/10/19 13:09 IV DYE Allergy Uncoded 03/10/19 13:09 Home Medications: Ambulatory Orders Folic Acid - 1 mg PO DAILY 02/11/13 Docusate Sodium [Colace -] 100 mg PO DAILY 04/06/15 Montelukast Na [Singulair -] 10 mg PO HS 04/06/15 Losartan Potassium [Cozaar -] 50 mg PO DAILY 01/21/18 Gabapentin [Neurontin -] 300 mg PO BID capsule 06/15/18 Omeprazole 20 mg PO BID 06/27/18 Apixaban [Eliquis] 5 mg PO BID #30 tablet MDD 2 06/30/18 Atenolol [Tenormin -] 25 mg PO DAILY tablet 06/30/18 Cholecalciferol (Vitamin D3) [Vitamin D3 -] 1,000 unit PO DAILY #30 tab Duloxetine HCl [Cymbalta -] 30 mg PO BID #30 capsule.dr MDD 2 06/30/18 Tamsulosin HCl [Flomax] 0.4 mg PO DAILY #30 cap.er.24h MDD 1 06/30/18 Hydrochlorothiazide [Hctz -] 12.5 g PO BID 03/10/19 Oxycodone HCl 30 mg PO QID 03/10/19 Anemia: Yes (SICKLE CELL) Asthma: Yes (BRONCHITIS) Cancer: No Cardiac Disorders: Yes (AF) CVA: No COPD: Yes CHF: No Dementia: No Diabetes: No GI Disorders: No Disorders: No HTN: Yes Hypercholesterolemia: No Liver Disease: No Seizures: No Thyroid Disease: No - Surgical History Abdominal Surgery: Yes Appendectomy: No Cardiac Surgery: No Cholecystectomy: Yes Lung Surgery: No Neurologic Surgery: No Orthopedic Surgery: Yes (nato hip replacement 2005 ? back sx, rot cuff) - Immunization History Immunization Up to Date: Yes (no pna) - Psycho Social/Smoking Cessation Hx Smoking Status: No Smoking History: Never smoked Have you smoked in the past 12 months: No Number of Cigarettes Smoked Daily: 0 Hx Alcohol Use: No Drug/Substance Use Hx: No Substance Use Type: None Hx Substance Use Treatment: No Review of Systems - Review of Systems Able to Perform ROS?: Yes Is the patient limited Occitan proficient: Yes Constitutional: No: Chills, Diaphoresis, Fever HEENTM: No: Nose Congestion, Throat Pain Respiratory: No: Cough, Shortness of Breath, Wheezing Cardiac (ROS): No: Chest Pain, Edema, Irregular Heart Rate ABD/GI: Yes: See HPI, Difficulty Swallowing, Nausea, Poor Fluid Intake, Vomiting. No: Abdominal Distended, Constipated, Diarrhea : No: Burning, Dysuria, Frequency Musculoskeletal: No: Back Pain, Muscle Pain, Muscle Weakness Integumentary: No: Pallor, Rash, Sweating Neurological: No: Headache, Numbness, Tingling, Weakness Endocrine: No: Increased Thirst, Increased Urine Hematologic/Lymphatic: No: Anemia, Blood Clots, Easy Bleeding All Other Systems: Reviewed and Negative *Physical Exam - Vital Signs Last Vital Signs Temp Pulse Resp BP Pulse Ox 98.7 F 91 H 19 137/90 96 03/10/19 11:58 03/10/19 11:58 03/10/19 11:58 03/10/19 11:58 03/10/19 11:58 - Physical Exam 03/10/19 12:57 Vitals reviewed, AFVSS GEN: Well appearing, appears stated age, NAD, comfortable. AAOx3. HEENT: NCAT, EOMI. Sclera anicteric, non-injected. No facial asymmetry. Moist mucous membranes. Normal voice. Trachea midline. CV: RRR, S1/S2, no murmurs / rubs / gallops appreciated. Non-tender chest wall. LUNG: CTAB, normal work of breathing. No wheezes, rales, rhonchi. No cough. Speaking full sentences. GI: Soft, NTND, +BS, no guarding, no rebound. No masses. Neg CVAT b/l. EXTREMITIES: 2+ distal pulses. No LE edema. No obvious deformities of all extremities. SKIN: Warm, dry, no rashes appreciated, non-jaundiced. PSYCH: Normal mood and affect. Cooperative and appropriate. NEURO: CN grossly intact. Moving all extremities well. Normal strength and sensation grossly. ED Treatment Course - LABORATORY CBC & Chemistry Diagram: 03/10/19 12:50 03/10/19 12:50 Medical Decision Making - Medical Decision Making 03/10/19 12:18 74yo F PMH Sickle Cell Disease, COPD (3.5L home O2, symbicort and spiriva), prior GUCCI, PE/DVT (apixaban), chronic lower back pain (on gabapentin 300TID, oxycodone 40mg BID) and Asthma who presents with choking sensation after eating a brussel sprout last night. History concerning for food impaction, history of the same, no bones / drugs / other foreign body ingestion. Exam, stable vital signs, otherwise WNL, good air movement, no evidence of respiratory compromise. DDX: Food bolus, esophageal edema, achalasia, esophageal spasm. - CBC, CMP, Coags - Glucagon - Zofran - 1 L IVF - CXR - Cup water to chug in 1 hour 03/10/19 14:00 - Mild leukocytosis, CBC, CMP otherwise unremarkable - Patient regurgitates 0.5 L water immediately on PO challenge - Will contact GI 03/10/19 14:35 - Spoke with Dt. Batista, he will reach out to OR staff / administrative nursing supervisor - Consult placed for Dr. Salazar - Dry CT ordered, Type & Screen Admit Med/Surg Discharge - Discharge Information Problems reviewed: Yes Clinical Impression/Diagnosis: Esophageal obstruction due to food impaction Condition: Guarded - Admission Yes - Follow up/Referral - Patient Discharge Instructions - Post Discharge Activity
[2019-03-10] MEDS ORDERED: ONDANSETRON 4 MG/2 ML VIAL IVPUSH ONE (12:49)
[2019-03-10] MEDS ORDERED: GLUCAGON 1 MG KIT IVPUSH ONE (12:49)
[2019-03-10] MEDS ORDERED: ONDANSETRON 4 MG/2 ML VIAL ONE (12:52)
[2019-03-10] MEDS ORDERED: GlUCAGON HUMAN RECOMBINANT 1 MG/VIAL ONE (12:54)
[2019-03-10] MEDS ORDERED: SODIUM CHLORIDE 0.9% 500 ML INFUS.BAG IV ONE (12:59)
[2019-03-10 13:22] LABS: EOS % 0.8 % (0-4.5); HEMATOCRIT 34.9 % (32.4-45.2); HEMOGLOBIN 11.5 GM/dL (10.7-15.3); LYMPH % 24.9 % (8-40); MCH 29.2 pg (25.7-33.7); MEAN CELL VOLUME 88.6 fl (80-96); MEAN PLT VOLUME 8.1 fl (7.5-11.1); MONO % 3.9 % (3.8-10.2); NEUT % 69.4 % (42.8-82.8); PLATELET COUNT 413 K/MM3 (134-434); RBC 3.94 M/mm3 (3.60-5.2); RDW 17.5 % (11.6-15.6); WHITE BLOOD COUNT 14.8 K/mm3 (4.0-10.0)
[2019-03-10 13:30] LABS: INR 1.24 (0.83-1.09); PROTHROMBIN TIME (PATIENT) 14.7 SEC (9.7-13.0)
[2019-03-10 13:33] LABS: ACTIVATED PTT 30.4 SECONDS (25.2-36.5)
[2019-03-10 13:39] LABS: ALBUMIN 3.4 g/dl (3.4-5.0); BILIRUBIN,TOTAL 0.6 mg/dL (0.2-1); BLOOD UREA NITROGEN 12.6 mg/dL (7-18); CALCIUM 8.9 mg/dL (8.5-10.1); CREATININE 0.8 mg/dL (0.55-1.3); POTASSIUM 3.6 mmol/L (3.5-5.1); TOT PROT 8.2 g/dl (6.4-8.2)
[2019-03-10] MEDS ORDERED: ONDANSETRON 4 MG/2 ML VIAL IVPUSH PRN (14:51)
[2019-03-10] MEDS ORDERED: MIDAZOLAM HCL 2 MG/2 ML SINGLE DOSE VIAL ONE (15:04)
--- NOTE | 2019-03-10 15:16 | CON.GI ---
Consult Consult Specialty:: GI: For Dr. Salazar Referred by:: ER Reason for Consultation:: Dysphagia - History of Present Illness Chief Complaint: Ate brussel sprouts last night, subsequently has been unable to swallow secretions History of Present Illness: 74F evaluated in ER. She is accompanied by her . She states that she was eating brussel srouts last night at around 10pm after which she began having difficulty swallowing and was spitting out her saliva. This persisted througout the evening, into the night and morning. She was hoping that it would go away on its own. She came to the ER today at around 1130 am and still could not maintain secretions / tolerate water challenge. She had a similar episode 08/20/15: She underwent EGD, performed by Dr. Gomes. A distal esophageal food impaction was pushed into the esophagus and the underlying mucosa was described as ulcerated. She follows with Dr. Salazar and she states that he performs her colonoscopies. She believes that she is due next year. She last took her eliquis last yesterday morning. She tried taking her night dose last night but vomited it up. She denies dysphagia or food impaction episodes since 2016. - History Source History Provided By: Patient, Family Member, Medical Record - Past Medical History Cardio/Vascular: Yes: Deep Vein Thrombosis, HTN Pulmonary: Yes: Asthma, COPD, Pulmonary Embolus Gastrointestinal: Yes: Constipation, GERD, Other (Esophageal food impaction 08/19) Renal/: Yes: Renal Inusuff, Neurogenic Bladder Psych: Yes: Addictions, Other (Pain meds- methadone, oxycodone ) Musculoskeletal: Yes: Chronic low back pain Endocrine: Yes: Diabetes Mellitus - Past Surgical History Past Surgical History: Yes: Cholecystectomy, Hysterectomy, Joint Replacement - Alcohol/Substance Use Hx Alcohol Use: No History of Substance Use: reports: Prescription - Smoking History Smoking history: Never smoked Have you smoked in the past 12 months: No Aproximately how many cigarettes per day: 0 - Social History Usual Living Arrangement: With Spouse (in apartment with 3-4 steps to enter) ADL: Independent Place of : [facility] History of Recent Travel: No Home Medications - Allergies Allergies/Adverse Reactions: Allergies Allergy/AdvReac Type Severity Reaction Status Date / Time ciprofloxacin [From Cipro] Allergy Itching Verified 03/10/19 13:09 ciprofloxacin HCl Allergy Itching Verified 03/10/19 13:09 [From Cipro] codeine [Codeine] Allergy Verified 03/10/19 13:09 levofloxacin [From Levaquin] Allergy Itching Verified 03/10/19 13:09 Penicillins Allergy Itching Verified 03/10/19 13:09 Sulfa (Sulfonamide Allergy Verified 03/10/19 13:09 Antibiotics) tetanus immune globulin Allergy Verified 03/10/19 13:09 IV DYE Allergy Uncoded 03/10/19 13:09 - Home Medications Home Medications: Ambulatory Orders Folic Acid - 1 mg PO DAILY 02/11/13 Docusate Sodium [Colace -] 100 mg PO DAILY 04/06/15 Montelukast Na [Singulair -] 10 mg PO HS 04/06/15 Losartan Potassium [Cozaar -] 50 mg PO DAILY 01/21/18 Gabapentin [Neurontin -] 300 mg PO BID capsule 06/15/18 Omeprazole 20 mg PO BID 06/27/18 Apixaban [Eliquis] 5 mg PO BID #30 tablet MDD 2 06/30/18 Atenolol [Tenormin -] 25 mg PO DAILY tablet 06/30/18 Cholecalciferol (Vitamin D3) [Vitamin D3 -] 1,000 unit PO DAILY #30 tab Duloxetine HCl [Cymbalta -] 30 mg PO BID #30 capsule.dr MDD 2 06/30/18 Tamsulosin HCl [Flomax] 0.4 mg PO DAILY #30 cap.er.24h MDD 1 06/30/18 Hydrochlorothiazide [Hctz -] 12.5 g PO BID 03/10/19 Oxycodone HCl 30 mg PO QID 03/10/19 Family Medical History Other Family History: Father: stomach cancer. No family history of esophageal cancer Review of Systems - Review of Systems Constitutional: denies: Chills Cardiovascular: denies: Chest Pain Respiratory: denies: Cough, SOB Gastrointestinal: reports: Vomiting. denies: Abdominal Pain Physical Exam-GI Vital Signs: Vital Signs Temperature 98.7 F 03/10/19 11:58 Pulse Rate 91 H 03/10/19 11:58 Respiratory Rate 19 03/10/19 11:58 Blood Pressure 137/90 03/10/19 11:58 O2 Sat by Pulse Oximetry (%) 96 03/10/19 11:58 Constitutional: Yes: Calm Eyes: No: Sclera Icterus Cardiovascular: Yes: Regular Rate and Rhythm. No: Murmur Respiratory: Yes: CTA Bilaterally Gastrointestinal Inspection: No: Distention ...Auscultate: Yes: Normoactive Bowel Sounds ...Palpate: No: Hepatomegaly, Splenomegaly, Tenderness Labs: CBC, BMP 03/10/19 12:50 03/10/19 12:50 INR, PTT INR 1.24 (0.83-1.09) H 03/10/19 12:50 Problem List - Problems (1) Esophageal obstruction due to food impaction Assessment/Plan: Unable to maintain sevretions / liquids since last night. Discussed need for emergent EGD with Ms. Flaherty for further evaluation and alleviation of suspected food impaction if necessary. Discussed likely need for endotracheal intubation to protect her airway during the procedure. Discussed potential risks of the procedure like but not limited to bleeding (higher risk given that she is on blood thinner), perforation requiring surgery to repair, infection sedation medication effects all of which could be potentially life threatening. She has agreed for the procedure Asked OR to send type and screen NPO For EGD Code(s): K22.2 - ESOPHAGEAL OBSTRUCTION; T18.128A - FOOD IN ESOPHAGUS CAUSING OTHER INJURY, INITIAL ENCOUNTER
--- NOTE | 2019-03-10 15:18 | HP ---
Admitting History and Physical - Primary Care Physician PCP: Javed Wilkinson - Admission Chief Complaint: Dysphagia History of Present Illness: Patient is a 74 y/o female with past medical history of Sickle Cell Disease, COPD O2 dependent, GUCCI, PE/DVT, Chronic lower back pain. Patient presented to ER for complaints of difficulty swallowing. She says last night she was eating brussel sprouts when she developed a choking sensation. She went home later that night and attempted to take her medication and threw them back up immediately after. Since then she has been unable to tolerate food or liquids. History Source: Patient Limitations to Obtaining History: No Limitations - Past Medical History Cardiovascular: Yes: Deep Vein Thrombosis, HTN Pulmonary: Yes: Asthma, COPD, Pulmonary Embolus Gastrointestinal: Yes: Constipation, GERD Renal/: Yes: Renal Inusuff, Neurogenic Bladder Heme/Onc: Yes: Sickle Cell Disease Psych: Yes: Addictions, Other (Pain meds- methadone, oxycodone ) Musculoskeletal: Yes: Chronic low back pain Endocrine: Yes: Diabetes Mellitus - Past Surgical History Past Surgical History: Yes: Cholecystectomy, Hysterectomy, Joint Replacement - Smoking History Smoking history: Never smoked Have you smoked in the past 12 months: No Aproximately how many cigarettes per day: 0 - Alcohol/Substance Use Hx Alcohol Use: No History of Substance Use: reports: Prescription - Social History ADL: Independent History of Recent Travel: No Home Medications - Allergies Allergies/Adverse Reactions: Allergies Allergy/AdvReac Type Severity Reaction Status Date / Time ciprofloxacin [From Cipro] Allergy Itching Verified 03/10/19 13:09 ciprofloxacin HCl Allergy Itching Verified 03/10/19 13:09 [From Cipro] codeine [Codeine] Allergy Verified 03/10/19 13:09 levofloxacin [From Levaquin] Allergy Itching Verified 03/10/19 13:09 Penicillins Allergy Itching Verified 03/10/19 13:09 Sulfa (Sulfonamide Allergy Verified 03/10/19 13:09 Antibiotics) tetanus immune globulin Allergy Verified 03/10/19 13:09 IV DYE Allergy Uncoded 03/10/19 13:09 - Home Medications Home Medications: Ambulatory Orders Folic Acid - 1 mg PO DAILY 02/11/13 Docusate Sodium [Colace -] 100 mg PO DAILY 04/06/15 Montelukast Na [Singulair -] 10 mg PO HS 04/06/15 Losartan Potassium [Cozaar -] 50 mg PO DAILY 01/21/18 Gabapentin [Neurontin -] 300 mg PO BID capsule 06/15/18 Omeprazole 20 mg PO BID 06/27/18 Apixaban [Eliquis] 5 mg PO BID #30 tablet MDD 2 06/30/18 Atenolol [Tenormin -] 25 mg PO DAILY tablet 06/30/18 Cholecalciferol (Vitamin D3) [Vitamin D3 -] 1,000 unit PO DAILY #30 tab Duloxetine HCl [Cymbalta -] 30 mg PO BID #30 capsule.dr MDD 2 06/30/18 Tamsulosin HCl [Flomax] 0.4 mg PO DAILY #30 cap.er.24h MDD 1 06/30/18 Hydrochlorothiazide [Hctz -] 12.5 g PO BID 03/10/19 Oxycodone HCl 30 mg PO QID 03/10/19 Review of Systems - Review of Systems Constitutional: reports: No Symptoms Eyes: reports: No Symptoms HENT: reports: Difficult Swallowing Neck: reports: No Symptoms Cardiovascular: reports: No Symptoms Respiratory: reports: No Symptoms Gastrointestinal: reports: Dysphagia, Nausea, Vomiting Genitourinary: reports: No Symptoms Breasts: reports: No Symptoms Reported Musculoskeletal: reports: Back Pain, Extremity Pain (L groin) Integumentary: reports: No Symptoms Neurological: reports: Headache Endocrine: reports: No Symptoms Hematology/Lymphatic: reports: No Symptoms Psychiatric: reports: No Symptoms Physical Examination Vital Signs: Vital Signs Temperature 98.7 F 03/10/19 11:58 Pulse Rate 91 H 03/10/19 11:58 Respiratory Rate 19 03/10/19 11:58 Blood Pressure 137/90 03/10/19 11:58 O2 Sat by Pulse Oximetry (%) 96 03/10/19 11:58 Constitutional: Yes: No Distress, Calm Eyes: Yes: Conjunctiva Clear HENT: Yes: Atraumatic Cardiovascular: Yes: Regular Rate and Rhythm Respiratory: Yes: Regular, CTA Bilaterally Gastrointestinal: Yes: Normal Bowel Sounds, Soft Musculoskeletal: Yes: Muscle Weakness Extremities: Yes: WNL Edema: No Neurological: Yes: Alert, Oriented Psychiatric: Yes: Alert, Oriented Labs: CBC, BMP 03/10/19 12:50 03/10/19 12:50 Imaging - Results Chest X-ray: Report Reviewed Problem List - Problems (1) Esophageal obstruction due to food impaction Assessment/Plan: -GI on board -NPO -patient is scheduled for emergent EGD -[employer] consult for swallow eval Code(s): K22.2 - ESOPHAGEAL OBSTRUCTION; T18.128A - FOOD IN ESOPHAGUS CAUSING OTHER INJURY, INITIAL ENCOUNTER (2) COPD (chronic obstructive pulmonary disease) Assessment/Plan: -Bronchodilators -O2 via NC -keep SpO2 >90% -Montelukast Code(s): J44.9 - CHRONIC OBSTRUCTIVE PULMONARY DISEASE, UNSPECIFIED (3) Diabetes Assessment/Plan: -[facility] ACHS -ISS -HgA1c Code(s): E11.9 - TYPE 2 DIABETES MELLITUS WITHOUT COMPLICATIONS Qualifiers: Diabetes mellitus type: type 2 (4) GERD (gastroesophageal reflux disease) Assessment/Plan: -Pantoprazole Code(s): K21.9 - GASTRO-ESOPHAGEAL REFLUX DISEASE WITHOUT ESOPHAGITIS (5) History of pulmonary embolism Assessment/Plan: -Eliquis Code(s): Z86.711 - PERSONAL HISTORY OF PULMONARY EMBOLISM (6) Sickle cell anemia Assessment/Plan: -IV hydration -Folic Acid -O2 via NC -pain control Code(s): D57.1 - SICKLE-CELL DISEASE WITHOUT CRISIS Qualifiers: Sickle-cell associated disorders: without crisis Qualified Code(s): D57.1 - Sickle-cell disease without crisis (7) HTN (hypertension) Assessment/Plan: -Atenolol, HCTZ, Losartan Code(s): I10 - ESSENTIAL (PRIMARY) HYPERTENSION Qualifiers: Hypertension type: essential hypertension Qualified Code(s): I10 - Essential (primary) hypertension (8) Afib Assessment/Plan: -Eliquis -Atenolol Code(s): I48.91 - UNSPECIFIED ATRIAL FIBRILLATION Qualifiers: Atrial fibrillation type: paroxysmal Qualified Code(s): I48.0 - Paroxysmal atrial fibrillation Assessment/Plan see problem list dvt ppx
[2019-03-10] MEDS: LACTATED RINGERS SOLUTION 1,000 ML IV SCH (15:36)
--- NOTE | 2019-03-10 16:25 | PN ---
Progress Note (short form) - Note Progress Note: EGD complete. report left in physical chart and will be scanned into [employer] Problem List - Problems (1) Esophageal obstruction due to food impaction Code(s): K22.2 - ESOPHAGEAL OBSTRUCTION; T18.128A - FOOD IN ESOPHAGUS CAUSING OTHER INJURY, INITIAL ENCOUNTER
[2019-03-10] MEDS: PANTOPRAZOLE SODIUM 40 MG VIAL IVPUSH SCH (17:00)
[2019-03-10] MEDS ORDERED: ALBUTEROL SO4 0.083% IH SOL 2.5 MG/3 ML VIAL.NEB. NEB PRN (18:09)
[2019-03-10] MEDS: GABAPENTIN 300 MG CAPSULE PO SCH (21:00)
[2019-03-10] MEDS: DULoxetine HCL 30 MG CAPSULE.DR PO SCH (21:00)
[2019-03-10] MEDS: INSULIN SLIDING SCALE (NOVOLOG) 1 VIAL SQ SCH (21:00)
[2019-03-10] MEDS: MONTELUKAST NA 10 MG TABLET PO SCH (21:00)
[2019-03-10] MEDS: APIXABAN 5 MG TABLET PO SCH (21:00)
[2019-03-10] MEDS: HYDROCHLOROTHIAZIDE 12.5 MG CAPSULE (FP) PO SCH (21:00)
--- NOTE | 2019-03-10 22:04 | PDOC ---
Documentation entered by Dannie Roper SCRIBE, acting as scribe for Varsha Cabral MD. Varsha Cabral MD: This documentation has been prepared by the Jacquelin man Xhesika, SCRIBE, under my direction and personally reviewed by me in its entirety. I confirm that the documentation accurately reflects all work, treatment, procedures, and medical decision making performed by me. Attending Attestation - Resident Resident Name: ArmaniGiuseppe - ED Attending Attestation I have performed the following: I have examined & evaluated the patient, The case was reviewed & discussed with the resident, I agree w/resident's findings & plan, Exceptions are as noted - HPI HPI: 03/10/19 12:47 The patient is a 74 year old female with a significant PMH of Sickle Cell Disease, COPD, PE/DVT (apixaban), chronic lower back pain (on gabapentin 300TID , oxycodone 40mg BID) and Asthma who presents to the emergency department for inability to tolerate PO and difficulty swallowing. The patient states she ate brussel sprouts last night, one of them got lodged in her throat and she felt a choking sensation. Pt states she endorsed an episode of nbnb emesis immediately after. Pt states she went home and tried to take her night meds, was not able to tolerate her medication and vomited for a second time. Pt states this morning she tried to take her morning medication and was not able to tolerate them, prompting her arrival to the ED. The patient denies chest pain, shortness of breath, headache and dizziness. Denies fever, chills, cough, nausea, diarrhea and constipation. Allergies: ciprofloxacin, ciprofloxin HCL, codeine, levofloxacin, etc - Physicial Exam PE: 03/10/19 12:49 Agree with resident exam - Medical Decision Making 74yo F with MMP inclduing SCD, food impaction requiring endoscopic removal presents to the ED with bolus sensation after eating a brussel sprout last night Pt non toxic appearing, likely recurrent food impaction, less likely esophageal rupture Attempted glucagon, zofran followed by PO challenge with water, but pt unable to tolerate Dr. Luong c/s, will take pt to endoscopy Pt admitted for further mgmt
[2019-03-11] MEDS: INSULIN SLIDING SCALE (NOVOLOG) 1 VIAL SQ SCH ×4 (06:03→21:24)
[2019-03-11 08:25] LABS: BASO % 0.7 % (0-2.0); EOS % 1.2 % (0-4.5); HEMATOCRIT 28.6 % (32.4-45.2); HEMOGLOBIN 9.7 GM/dL (10.7-15.3); LYMPH % 29.8 % (8-40); MCH 29.6 pg (25.7-33.7); MCHC 33.9 g/dl (32.0-36.0); MEAN CELL VOLUME 87.3 fl (80-96); MEAN PLT VOLUME 8.2 fl (7.5-11.1); MONO % 4.1 % (3.8-10.2); NEUT % 64.2 % (42.8-82.8); PLATELET COUNT 344 K/MM3 (134-434); RBC 3.28 M/mm3 (3.60-5.2); RDW 17.7 % (11.6-15.6)
--- NOTE | 2019-03-11 08:34 | PN ---
Progress Note (short form) - Note Progress Note: 74 yo F s/p GA for food impaction. pt doing well. good result anesthetic care
[2019-03-11] MEDS: TAMSULOSIN HCL 0.4 MG CAP PO SCH (08:44)
[2019-03-11 09:08] LABS: ALBUMIN 2.8 g/dl (3.4-5.0); BILIRUBIN,TOTAL 0.8 mg/dL (0.2-1); BLOOD UREA NITROGEN 10.2 mg/dL (7-18); CREATININE 0.8 mg/dL (0.55-1.3); MAGNESIUM 1.6 mg/dL (1.8-2.4); PHOSPHOROUS 2.8 mg/dL (2.5-4.9); POTASSIUM 3.4 mmol/L (3.5-5.1); TOT PROT 6.7 g/dl (6.4-8.2)
[2019-03-11] MEDS ORDERED: PT OWN MED DRAWER 7, Y5N ONE (09:35)
[2019-03-11] MEDS: LOSARTAN POTASSIUM 50 MG TABLET (FP) PO SCH (09:41)
[2019-03-11] MEDS: APIXABAN 5 MG TABLET PO SCH ×2 (09:41→21:23)
[2019-03-11] MEDS: DULoxetine HCL 30 MG CAPSULE.DR PO SCH ×2 (09:41→21:23)
[2019-03-11] MEDS: FOLIC ACID 1 MG TABLET (FP) PO SCH (09:42)
[2019-03-11] MEDS: GABAPENTIN 300 MG CAPSULE PO SCH ×2 (09:42→21:24)
[2019-03-11] MEDS: ATENOLOL 25 MG TABLET (FP) PO SCH (09:42)
[2019-03-11] MEDS: PANTOPRAZOLE 40 MG TABLET PO SCH (09:42)
[2019-03-11] MEDS: CHOLECALCIFEROL (VIT D3) 1,000 UNIT (25 MCG) TABLET PO SCH (09:42)
[2019-03-11] MEDS: HYDROCHLOROTHIAZIDE 12.5 MG CAPSULE (FP) PO SCH ×2 (09:42→21:24)
[2019-03-11] MEDS: DOCUSATE SODIUM 100 MG CAPSULE (FP) PO SCH (09:53)
[2019-03-11] MEDS: PANTOPRAZOLE SODIUM 40 MG VIAL IVPUSH SCH (11:34)
--- NOTE | 2019-03-11 11:43 | PN ---
Progress Note, Physician Chief Complaint: Dysphagia Sickle Cell History of Present Illness: Previous notes and events reviewed awake and alert NAD s/p emergent EGD yesterday for food impaction denies chest pain or SOB - Current Medication List Current Medications: Active Medications Albuterol Sulfate (Ventolin 0.083% Nebulizer Soln -) 1 amp NEB Q6H PRN PRN Reason: SHORT OF BREATH/WHEEZING Apixaban (Eliquis -) 5 mg PO BID [facility] Last Admin: 03/11/19 09:41 Dose: 5 mg Atenolol (Tenormin -) 25 mg PO DAILY [facility] Last Admin: 03/11/19 09:42 Dose: 25 mg Cholecalciferol (Vitamin D3 -) 1,000 unit PO DAILY [facility] Last Admin: 03/11/19 09:42 Dose: 1,000 unit Docusate Sodium (Colace -) 100 mg PO DAILY [facility] Last Admin: 03/11/19 09:53 Dose: 100 mg Duloxetine HCl (Cymbalta -) 30 mg PO BID [facility] Last Admin: 03/11/19 09:41 Dose: 30 mg Folic Acid (Folic Acid -) 1 mg PO DAILY [facility] Last Admin: 03/11/19 09:42 Dose: 1 mg Gabapentin (Neurontin -) 300 mg PO BID [facility] Last Admin: 03/11/19 09:42 Dose: 300 mg Hydrochlorothiazide (Hctz -) 12.5 mg PO BID [facility] Last Admin: 03/11/19 09:42 Dose: 12.5 mg Lactated Ringer's (Lactated Ringers Solution) 1,000 mls @ 75 mls/hr IV ASDIR [facility] Last Admin: 03/10/19 15:36 Dose: 75 mls/hr Insulin Aspart (Novolog Vial Sliding Scale -) 1 vial SQ ACHS [facility]; Protocol Last Admin: 03/11/19 11:35 Dose: Not Given Losartan Potassium (Cozaar -) 50 mg PO DAILY [facility] Last Admin: 03/11/19 09:41 Dose: 50 mg Montelukast Sodium (Singulair -) 10 mg PO [facility] Last Admin: 03/10/19 21:00 Dose: 10 mg Non-Formulary Medication (Oxycodone Hcl [Oxycodone Hcl]) 30 mg PO QID PRN PRN Reason: PAIN LEVEL 6-10 Ondansetron HCl (Zofran Injection) 4 mg IVPUSH Q6H PRN PRN Reason: NAUSEA AND/OR VOMITING Pantoprazole Sodium (Protonix Iv) 40 mg IVPUSH DAILY [facility] Last Admin: 03/11/19 11:34 Dose: Not Given Pantoprazole Sodium (Protonix -) 40 mg PO DAILY [facility] Last Admin: 03/11/19 09:42 Dose: 40 mg Tamsulosin HCl (Flomax -) 0.4 mg PO DAILY@0830 [facility] Last Admin: 03/11/19 08:44 Dose: 0.4 mg - Objective Vital Signs: Vital Signs Temperature 98.3 F 03/11/19 06:00 Pulse Rate 85 03/11/19 06:00 Respiratory Rate 20 03/11/19 06:00 Blood Pressure 136/77 03/11/19 06:00 O2 Sat by Pulse Oximetry (%) 89 L 03/10/19 22:11 Constitutional: Yes: No Distress, Calm Eyes: Yes: Conjunctiva Clear HENT: Yes: Atraumatic Cardiovascular: Yes: Regular Rate and Rhythm Respiratory: Yes: Regular, CTA Bilaterally Gastrointestinal: Yes: Normal Bowel Sounds, Soft Musculoskeletal: Yes: WNL Extremities: Yes: WNL Edema: No Neurological: Yes: Alert, Oriented Psychiatric: Yes: Alert, Oriented Labs: CBC, BMP 03/11/19 06:50 03/11/19 06:50 INR, PTT INR 1.24 (0.83-1.09) H 03/10/19 12:50 Problem List - Problems (1) Esophageal obstruction due to food impaction Assessment/Plan: -GI on board -clear liquids -patient is scheduled for emergent EGD -PRODUCTION DEPARTMENT SUPERVISOR consult for swallow eval -Esophogram for tuesday Code(s): K22.2 - ESOPHAGEAL OBSTRUCTION; T18.128A - FOOD IN ESOPHAGUS CAUSING OTHER INJURY, INITIAL ENCOUNTER (2) COPD (chronic obstructive pulmonary disease) Assessment/Plan: -Bronchodilators -O2 via NC -keep SpO2 >90% -Montelukast Code(s): J44.9 - CHRONIC OBSTRUCTIVE PULMONARY DISEASE, UNSPECIFIED (3) Diabetes Assessment/Plan: -[facility] -[facility] -HgA1c 4.9% Code(s): E11.9 - TYPE 2 DIABETES MELLITUS WITHOUT COMPLICATIONS Qualifiers: Diabetes mellitus type: type 2 (4) GERD (gastroesophageal reflux disease) Assessment/Plan: -Pantoprazole Code(s): K21.9 - GASTRO-ESOPHAGEAL REFLUX DISEASE WITHOUT ESOPHAGITIS (5) History of pulmonary embolism Assessment/Plan: -Eliquis Code(s): Z86.711 - PERSONAL HISTORY OF PULMONARY EMBOLISM (6) Sickle cell anemia Assessment/Plan: -IV hydration -Folic Acid -O2 via NC -pain control Code(s): D57.1 - SICKLE-CELL DISEASE WITHOUT CRISIS Qualifiers: Sickle-cell associated disorders: without crisis Qualified Code(s): D57.1 - Sickle-cell disease without crisis (7) HTN (hypertension) Assessment/Plan: -Atenolol, HCTZ, Losartan Code(s): I10 - ESSENTIAL (PRIMARY) HYPERTENSION Qualifiers: Hypertension type: essential hypertension Qualified Code(s): I10 - Essential (primary) hypertension (8) Afib Assessment/Plan: -Eliquis -Atenolol Code(s): I48.91 - UNSPECIFIED ATRIAL FIBRILLATION Qualifiers: Atrial fibrillation type: paroxysmal Qualified Code(s): I48.0 - Paroxysmal atrial fibrillation (9) Dysphagia Assessment/Plan: -GI on board -clear liquids -patient is scheduled for emergent EGD -PRODUCTION DEPARTMENT SUPERVISOR consult for swallow eval -Esophogram for tuesday Code(s): R13.10 - DYSPHAGIA, UNSPECIFIED Assessment/Plan see problem list dvt ppx
--- NOTE | 2019-03-11 12:00 | PN.GI ---
GI Progress Note Subjective: For Dr. Salazar No acute events Tolerating clears S/P removal of impacted food in esophagus. Finding of esophageal stricture - Objective Vital Signs: Vital Signs Temperature 98.3 F 03/11/19 06:00 Pulse Rate 85 03/11/19 06:00 Respiratory Rate 03/11/19 06:00 Blood Pressure 136/77 03/11/19 06:00 O2 Sat by Pulse Oximetry (%) 89 L 03/10/19 22:11 Constitutional: Calm Eyes: No: Sclera Icterus Cardiovascular: Yes: Regular Rate and Rhythm. No: Murmur Respiratory: Yes: CTA Bilaterally Gastrointestinal Inspection: No: Distention ...Auscultate: Yes: Normoactive Bowel Sounds ...Palpate: Yes: Soft. No: Hepatomegaly, Splenomegaly, Tenderness Edema: No (No LE edema) Neurological: Yes: Alert Labs: CBC, BMP 03/11/19 06:50 03/11/19 06:50 INR, PTT INR 1.24 (0.83-1.09) H 03/10/19 12:50 Problem List - Problems (1) Esophageal obstruction due to food impaction Assessment/Plan: Esophageal striucture, possible short segment dobson's noted on yesterday's evaluation: Protonix 40mg daily Advanced to full liquids Esophagram tomorrow morning Dr. Salazar to resume care 2/3 Code(s): K22.2 - ESOPHAGEAL OBSTRUCTION; T18.128A - FOOD IN ESOPHAGUS CAUSING OTHER INJURY, INITIAL ENCOUNTER
[2019-03-11] MEDS: LACTATED RINGERS SOLUTION 1,000 ML IV SCH ×2 (13:34→19:37)
[2019-03-11] MEDS: oxyCODONE HCL 5 MG TABLET PO PRN ×2 (15:09→21:24)
[2019-03-11] MEDS: PATIENT'S OWN MEDICATION (NON-FORMULARY) (Oxycodone Hcl [Oxycodone Hcl] 30 MG) PO SCH (20:33)
[2019-03-11] MEDS: MONTELUKAST NA 10 MG TABLET PO SCH (21:23)
[2019-03-12] MEDS: INSULIN SLIDING SCALE (NOVOLOG) 1 VIAL SQ SCH ×4 (06:21→21:02)
--- NOTE | 2019-03-12 07:50 | PN.GI ---
GI Progress Note Subjective: Patient has sickle cell disease. She developed PE while on Coumadin. She was switched to elaquis.Patient denies further episodes of dysphagia and is tolering full liquid diet. EGD over weekend showed esophageal stricture. She underwent Barium esophagram and was noted to have Barium pill 1.3 cm in size above the stricture. Denies nausea, vomiting, abdominal pain, diarrhea, constipation, rectal bleeding or melena. - Objective Vital Signs: Vital Signs Temperature 98.4 F 03/12/19 06:47 Pulse Rate 78 03/12/19 06:47 Respiratory Rate 03/12/19 06:47 Blood Pressure 138/80 03/12/19 06:47 O2 Sat by Pulse Oximetry (%) 94 L 03/11/19 22:00 Constitutional: No Distress, Calm Eyes: Yes: Conjunctiva Clear HENT: Yes: Atraumatic Cardiovascular: Yes: Regular Rate and Rhythm Respiratory: Yes: Regular, CTA Bilaterally Gastrointestinal Inspection: Yes: WNL. No: Ascites, Distention, Hernia, Scars, Other ...Auscultate: Yes: Normoactive Bowel Sounds. No: Hyperactive Bowel Sounds, Hypoactive Bowel Sounds, No Bowel Sounds, Other ...Palpate: Yes: Soft, Tenderness (llq). No: Firm/Rigid, Guarding, Hepatomegaly , Mass, Pulsatile Mass, Splenomegaly, Tenderness, Epigastium, Tenderness, Rebound, Other ...Percussion: Yes: Tympanitic. No: Dullness, Fluid Wave, Other Neurological: Yes: Alert, Oriented Psychiatric: Yes: Alert, Oriented Labs: CBC, BMP 03/11/19 06:50 03/11/19 06:50 INR, PTT INR 1.24 (0.83-1.09) H 03/10/19 12:50 Problem List - Problems (1) Dysphagia Assessment/Plan: >patient is scheduled for Esophogram today > full iquid diet, advance as tolerated >Pantoprazole Code(s): R13.10 - DYSPHAGIA, UNSPECIFIED (2) Esophageal stricture Assessment/Plan: She will benefit in undergoing a dilation, however will need to stop Eliquis for 48 hours then will need to be placed on Heparin drip prior to and after the procedure. After the dilation she has a high risk of bleeding. At present she is taking her pills with out difficulty. Another option is to place her on soft diet only and place IVC filter prior to dilation. She is poor candidate for Coumadin use because of breakthrough Pulmonary Embolism. R> will need hematology and vascular consult advance to soft diet Pantoprazole 40mg bid Code(s): K22.2 - ESOPHAGEAL OBSTRUCTION
[2019-03-12 08:46] LABS: HEMATOCRIT 32.4 % (32.4-45.2); HEMOGLOBIN 10.8 GM/dL (10.7-15.3); MCH 29.6 pg (25.7-33.7); MCHC 33.4 g/dl (32.0-36.0); MEAN CELL VOLUME 88.4 fl (80-96); MEAN PLT VOLUME 8.4 fl (7.5-11.1); PLATELET COUNT 357 K/MM3 (134-434); RBC 3.67 M/mm3 (3.60-5.2); RDW 17.5 % (11.6-15.6); WHITE BLOOD COUNT 15.3 K/mm3 (4.0-10.0)
[2019-03-12 09:22] LABS: ALBUMIN 2.9 g/dl (3.4-5.0); BILIRUBIN,TOTAL 1.1 mg/dL (0.2-1); BLOOD UREA NITROGEN 5.7 mg/dL (7-18); CALCIUM 9.1 mg/dL (8.5-10.1); CREATININE 0.8 mg/dL (0.55-1.3); POTASSIUM 3.6 mmol/L (3.5-5.1); TOT PROT 6.9 g/dl (6.4-8.2)
[2019-03-12] MEDS: GABAPENTIN 300 MG CAPSULE PO SCH ×2 (09:23→21:01)
[2019-03-12] MEDS: HYDROCHLOROTHIAZIDE 12.5 MG CAPSULE (FP) PO SCH ×2 (09:23→21:01)
[2019-03-12] MEDS: PANTOPRAZOLE 40 MG TABLET PO SCH ×3 (09:23→21:02)
[2019-03-12] MEDS: CHOLECALCIFEROL (VIT D3) 1,000 UNIT (25 MCG) TABLET PO SCH (09:23)
[2019-03-12] MEDS: TAMSULOSIN HCL 0.4 MG CAP PO SCH (09:23)
[2019-03-12] MEDS: FOLIC ACID 1 MG TABLET (FP) PO SCH (09:23)
[2019-03-12] MEDS: DOCUSATE SODIUM 100 MG CAPSULE (FP) PO SCH (09:24)
[2019-03-12] MEDS: APIXABAN 5 MG TABLET PO SCH ×2 (09:24→21:01)
[2019-03-12] MEDS: DULoxetine HCL 30 MG CAPSULE.DR PO SCH ×2 (09:24→21:01)
[2019-03-12] MEDS: LOSARTAN POTASSIUM 50 MG TABLET (FP) PO SCH (09:24)
[2019-03-12] MEDS: ATENOLOL 25 MG TABLET (FP) PO SCH (09:24)
[2019-03-12] MEDS: oxyCODONE HCL 5 MG TABLET PO PRN ×2 (09:29→21:07)
--- NOTE | 2019-03-12 10:14 | PN ---
Progress Note, Physician - Current Medication List Current Medications: Active Medications Albuterol Sulfate (Ventolin 0.083% Nebulizer Soln -) 1 amp NEB Q6H PRN PRN Reason: SHORT OF BREATH/WHEEZING Apixaban (Eliquis -) 5 mg PO BID [facility] Last Admin: 03/12/19 09:24 Dose: 5 mg Atenolol (Tenormin -) 25 mg PO DAILY [facility] Last Admin: 03/12/19 09:24 Dose: 25 mg Cholecalciferol (Vitamin D3 -) 1,000 unit PO DAILY [facility] Last Admin: 03/12/19 09:23 Dose: 1,000 unit Docusate Sodium (Colace -) 100 mg PO DAILY [facility] Last Admin: 03/12/19 09:24 Dose: 100 mg Duloxetine HCl (Cymbalta -) 30 mg PO BID [facility] Last Admin: 03/12/19 09:24 Dose: 30 mg Folic Acid (Folic Acid -) 1 mg PO DAILY [facility] Last Admin: 03/12/19 09:23 Dose: 1 mg Gabapentin (Neurontin -) 300 mg PO BID [facility] Last Admin: 03/12/19 09:23 Dose: 300 mg Hydrochlorothiazide (Hctz -) 12.5 mg PO BID [facility] Last Admin: 03/12/19 09:23 Dose: 12.5 mg Lactated Ringer's (Lactated Ringers Solution) 1,000 mls @ 75 mls/hr IV ASDIR [facility] Last Admin: 03/11/19 19:37 Dose: Not Given Insulin Aspart (Novolog Vial Sliding Scale -) 1 vial SQ ACHS [facility]; Protocol Last Admin: 03/12/19 06:21 Dose: Not Given Losartan Potassium (Cozaar -) 50 mg PO DAILY [facility] Last Admin: 03/12/19 09:24 Dose: 50 mg Montelukast Sodium (Singulair -) 10 mg PO HS [facility] Last Admin: 03/11/19 21:23 Dose: 10 mg Ondansetron HCl (Zofran Injection) 4 mg IVPUSH Q6H PRN PRN Reason: NAUSEA AND/OR VOMITING Oxycodone HCl (Roxicodone -) 30 mg PO QID PRN PRN Reason: PAIN LEVEL 6-10 Last Admin: 03/12/19 09:29 Dose: 30 mg Pantoprazole Sodium (Protonix -) 40 mg PO DAILY [facility] Last Admin: 03/12/19 09:23 Dose: 40 mg Tamsulosin HCl (Flomax -) 0.4 mg PO DAILY@0830 [facility] Last Admin: 03/12/19 09:23 Dose: 0.4 mg - Objective Vital Signs: Vital Signs Temperature 98.4 F 03/12/19 06:47 Pulse Rate 78 03/12/19 06:47 Respiratory Rate 20 03/12/19 06:47 Blood Pressure 138/80 03/12/19 06:47 O2 Sat by Pulse Oximetry (%) 94 L 03/11/19 22:00 Cardiovascular: Yes: S1, S2 Respiratory: Yes: Regular, CTA Bilaterally Gastrointestinal: Yes: Normal Bowel Sounds, Soft. No: Tenderness Labs: CBC, BMP 03/12/19 07:35 03/12/19 07:35 INR, PTT INR 1.24 (0.83-1.09) H 03/10/19 12:50 Assessment/Plan Problems (1) Esophageal obstruction due to food impaction Assessment/Plan: -GI on board -clear liquids -patient is scheduled for emergent EGD -BATCH MIXER consult for swallow eval -Esophogram for tuesday Code(s): K22.2 - ESOPHAGEAL OBSTRUCTION; T18.128A - FOOD IN ESOPHAGUS CAUSING OTHER INJURY, INITIAL ENCOUNTER (2) COPD (chronic obstructive pulmonary disease) Assessment/Plan: -Bronchodilators -O2 via NC -keep SpO2 >90% -Montelukast Code(s): J44.9 - CHRONIC OBSTRUCTIVE PULMONARY DISEASE, UNSPECIFIED (3) Diabetes Assessment/Plan: -[facility] -HgA1c 4.9% Code(s): E11.9 - TYPE 2 DIABETES MELLITUS WITHOUT COMPLICATIONS Qualifiers: Diabetes mellitus type: type 2 (4) GERD (gastroesophageal reflux disease) Assessment/Plan: -Pantoprazole Code(s): K21.9 - GASTRO-ESOPHAGEAL REFLUX DISEASE WITHOUT ESOPHAGITIS (5) History of pulmonary embolism Assessment/Plan: -Eliquis Code(s): Z86.711 - PERSONAL HISTORY OF PULMONARY EMBOLISM (6) Sickle cell anemia Assessment/Plan: -IV hydration -Folic Acid -O2 via NC -pain control Code(s): D57.1 - SICKLE-CELL DISEASE WITHOUT CRISIS Qualifiers: Sickle-cell associated disorders: without crisis Qualified Code(s): D57.1 - Sickle-cell disease without crisis (7) HTN (hypertension) Assessment/Plan: -Atenolol, HCTZ, Losartan Code(s): I10 - ESSENTIAL (PRIMARY) HYPERTENSION Qualifiers: Hypertension type: essential hypertension Qualified Code(s): I10 - Essential (primary) hypertension (8) DVT-PE Assessment/Plan: -Eliquis (9) Dysphagia Assessment/Plan: -GI on board -clear liquids -patient had EGD Esophageal striucture, possible short segment dobson's noted on yesterday's evaluation: Protonix 40mg daily Advanced to full liquids Esophagram -BATCH MIXER consult for swallow eval -Esophogram Code(s): R13.10 - DYSPHAGIA, UNSPECIFIED
--- NOTE | 2019-03-12 14:31 | CONSULT ---
Admitting History and Physical - Primary Care Physician PCP: Pedro Mathur - Admission History of Present Illness: 74F admitted following esophageal impaction of brussel sprouts, resulting in difficulty swallowing her saliva. She had a similar episode 08/20/15 but denies dysphagia or food impaction episodes since 2016. GI EGD completed-Esophageal stricture, possible short segment Green's Placed on full fluids. Esophagram revealed stricture distal esophagus with impaired passage of 1.3 Ba pill. Selected Entries 03/11/19 03/11/19 03/11/19 02:00 06:00 08:00 Breakfast Diet Tolerated Lunch Supper Temperature 98.3 F 98.3 F 98.5 F 03/11/19 03/11/19 03/11/19 14:00 17:11 19:48 Breakfast 100% Diet Tolerated Well Lunch 100% Supper Temperature 98.1 F 98.2 F 98.5 F 03/11/19 03/11/19 03/12/19 22:00 22:43 01:00 Breakfast Diet Tolerated Well Well Lunch 100% Supper 100% 100% Temperature 98.1 F 03/12/19 03/12/19 03/12/19 06:47 09:00 13:51 Breakfast 100% Diet Tolerated Well Lunch 100% Supper Temperature 98.4 F 98 F 98.3 F Laboratory Tests 03/10/19 03/11/19 03/12/19 12:50 06:50 07:35 WBC 14.8 H 14.0 H 15.3 H History Source: Patient Limitations to Obtaining History: No Limitations - Past Medical History Cardiovascular: Yes: Deep Vein Thrombosis, HTN Pulmonary: Yes: Asthma, COPD, Pulmonary Embolus Gastrointestinal: Yes: Constipation, GERD Renal/: Yes: Renal Inusuff, Neurogenic Bladder Heme/Onc: Yes: Sickle Cell Disease Psych: Yes: Addictions, Other (Pain meds- methadone, oxycodone ) Musculoskeletal: Yes: Chronic low back pain Endocrine: Yes: Diabetes Mellitus - Past Surgical History Past Surgical History: Yes: Cholecystectomy, Hysterectomy, Joint Replacement - Smoking History Smoking history: Never smoked Have you smoked in the past 12 months: No Aproximately how many cigarettes per day: 0 - Alcohol/Substance Use Hx Alcohol Use: No History of Substance Use: reports: Prescription - Social History ADL: Independent History of Recent Travel: No History - Admission Reason For Visit: OBSTRUCTION OF ESOPHAGUS DUE TO FOOD IMPACTION - Diagnostics X-ray: Report Reviewed Other: Report Reviewed (esophagram) - General Mental Status: Alert and Oriented, Awake and Alert, Able to Follow Commands Attention: Intact Ability to Follow Directions: Excellent Head/Neck Control: WFL - Hearing Hearing: Normal Speech Evaluation - Communication Primary Language: [place] Communication: Yes: Within Normal Limits Oral Expression Ability: Yes: No Impairment - Speech Production Able to Make Needs Known: Yes: WNL Intelligibility: Yes: WNL - Speech Characteristics Voice Loudness: Normal Voice Pitch: Yes: Normal Voice Phonatory-based Quality: Yes: Normal Speech Pattern: Normal Speech Clarity: < 100% Nasal Resonance: Normal Articulation: Yes: Precise Rate of Speech: Intact - Language/Auditory Comprehension Follows: Yes: 2 Stage Simple Commands Observation: Able to respond to yes/no queries: Yes, Yes/No Confusion: No, Comprehends Conversational Speech: Yes - Language/Verbal Expression Able to Respond to Simple Queries: Yes: WNL Able to Communicate Wants and Needs: Yes: WNL Functional Communication Status: Yes: WNL - Memory/Perception correction Memory: Yes: WNL Short Term Memory: Yes: WNL - Swallow Evaluation/Bedside Assessment Current Nutritional Intake: Full Liquids Oral Secretions: Yes: WFL Dentition: Yes: Dental Appliance Upper, Dental Appliance Lower Facial Symmetry at Rest: Symmetrical Facial Symmetry on Retraction: Symmetrical Facial Movement: Controlled Sensation: Normal Against Resistance Opening: Normal Against Resistance Closing: Normal Pucker Lips: Normal Smile: Normal Lingual Movement: Normal, Symmetric Lingual Speed of Movement: Normal Lingual Movement Strgth Against Opposition: Normal Lingual Movement Characteristics: Normal Velopharyngeal Movement: Normal Laryngeal Elevation: WFL Laryngeal Movement: Able to Palpate Rate of Intake: WFL Bolus Size: WFL Labial Seal: WFL Chewing: WFL Oral Prep Time: WFL A-P Transit: WFL Pocketing: None Timing of Swallow: WFL Coughing/Throat Clear: No Change in Voice: No Recommendations - Speech Evaluation, Impression/Plan Impression: Pt reports coughing at times on water. Upon review of swallowing behaviors, she drinks a lot of soda, ginna ofter reclinesv after eating. - Dysphagia Impressions/Plan Swallowing Skills: WFL Dysphagia Impressions: Minimal Impairment *Silent aspiration: cannot be R/O at bedside Dysphagia Treatment Plan: OOB for meals, OOB for 1 h. after meals, Other (Pt educated on GERD precautions, including upright for 2 hours after meals. She was advised to review with GI. Chew well. Alternate solids with liquids. Complete meal with liquids.) - Recommendations Diet Consistency: Other (upgrade as tolerated, per GI)
[2019-03-12] MEDS: LACTATED RINGERS SOLUTION 1,000 ML IV SCH (17:31)
[2019-03-12] MEDS: MONTELUKAST NA 10 MG TABLET PO SCH (21:01)
[2019-03-13] MEDS: oxyCODONE HCL 5 MG TABLET PO PRN ×3 (03:59→21:25)
[2019-03-13] MEDS: INSULIN SLIDING SCALE (NOVOLOG) 1 VIAL SQ SCH ×4 (06:18→21:30)
[2019-03-13] MEDS: LACTATED RINGERS SOLUTION 1,000 ML IV SCH ×2 (06:36→17:22)
--- NOTE | 2019-03-13 07:44 | PN.GI ---
GI Progress Note Subjective: Patient s/p Esophogram yesterday showing distal esophageal stricture with stasis 1.3cm barium pill at site of stricture. She is tolerating full liquid diet with no episodes of nausea or vomiting. Complains of LLQ pressure like pain, non-radiating in nature. Denies diarrhea, constipation, or rectal bleeding. - Objective Vital Signs: Vital Signs Temperature 99.1 F 03/13/19 05:00 Pulse Rate 79 03/13/19 05:00 Respiratory Rate 20 03/13/19 05:00 Blood Pressure 119/57 L 03/13/19 05:00 O2 Sat by Pulse Oximetry (%) 98 03/12/19 21:00 Constitutional: No Distress, Calm Eyes: Yes: Conjunctiva Clear HENT: Yes: Atraumatic Cardiovascular: Yes: Regular Rate and Rhythm Respiratory: Yes: Regular, CTA Bilaterally Gastrointestinal Inspection: Yes: WNL. No: Ascites, Distention, Hernia, Scars, Other ...Auscultate: Yes: Normoactive Bowel Sounds. No: Hyperactive Bowel Sounds, Hypoactive Bowel Sounds, No Bowel Sounds, Other ...Palpate: Yes: Soft, Tenderness (llq). No: Firm/Rigid, Guarding, Hepatomegaly , Mass, Pulsatile Mass, Splenomegaly, Tenderness, Epigastium, Tenderness, Rebound, Other ...Percussion: Yes: Tympanitic. No: Dullness, Fluid Wave, Other Labs: CBC, BMP 03/12/19 07:35 03/12/19 07:35 INR, PTT INR 1.24 (0.83-1.09) H 03/10/19 12:50 Problem List - Problems (1) Dysphagia Assessment/Plan: >patient is scheduled for Esophogram today >soft diet, advance as tolerated >Pantoprazole Code(s): R13.10 - DYSPHAGIA, UNSPECIFIED (2) Esophageal stricture Assessment/Plan: She will benefit in undergoing a dilation, however will need to stop Eliquis for 48 hours then will need to be placed on Heparin drip prior to and after the procedure. After the dilation she has a high risk of bleeding. At present she is taking her pills with out difficulty. Another option is to place her on soft diet only and place IVC filter prior to dilation. She is poor candidate for Coumadin use because of breakthrough Pulmonary Embolism. R> will need hematology and vascular consult soft diet Pantoprazole 40mg bid Code(s): K22.2 - ESOPHAGEAL OBSTRUCTION
--- NOTE | 2019-03-13 09:21 | PN ---
Progress Note, Physician - Current Medication List Current Medications: Active Medications Albuterol Sulfate (Ventolin 0.083% Nebulizer Soln -) 1 amp NEB Q6H PRN PRN Reason: SHORT OF BREATH/WHEEZING Apixaban (Eliquis -) 5 mg PO BID [facility] Last Admin: 03/12/19 21:01 Dose: 5 mg Atenolol (Tenormin -) 25 mg PO DAILY [facility] Last Admin: 03/12/19 09:24 Dose: 25 mg Cholecalciferol (Vitamin D3 -) 1,000 unit PO DAILY [facility] Last Admin: 03/12/19 09:23 Dose: 1,000 unit Docusate Sodium (Colace -) 100 mg PO DAILY [facility] Last Admin: 03/12/19 09:24 Dose: 100 mg Duloxetine HCl (Cymbalta -) 30 mg PO BID [facility] Last Admin: 03/12/19 21:01 Dose: 30 mg Folic Acid (Folic Acid -) 1 mg PO DAILY [facility] Last Admin: 03/12/19 09:23 Dose: 1 mg Gabapentin (Neurontin -) 300 mg PO BID [facility] Last Admin: 03/12/19 21:01 Dose: 300 mg Hydrochlorothiazide (Hctz -) 12.5 mg PO BID [facility] Last Admin: 03/12/19 21:01 Dose: 12.5 mg Lactated Ringer's (Lactated Ringers Solution) 1,000 mls @ 75 mls/hr IV ASDIR [facility] Last Admin: 03/13/19 06:36 Dose: 75 mls/hr Insulin Aspart (Novolog Vial Sliding Scale -) 1 vial SQ ACHS [facility]; Protocol Last Admin: 03/13/19 06:18 Dose: Not Given Losartan Potassium (Cozaar -) 50 mg PO DAILY [facility] Last Admin: 03/12/19 09:24 Dose: 50 mg Montelukast Sodium (Singulair -) 10 mg PO HS [facility] Last Admin: 03/12/19 21:01 Dose: 10 mg Ondansetron HCl (Zofran Injection) 4 mg IVPUSH Q6H PRN PRN Reason: NAUSEA AND/OR VOMITING Oxycodone HCl (Roxicodone -) 30 mg PO QID PRN PRN Reason: PAIN LEVEL 6-10 Last Admin: 03/13/19 03:59 Dose: 30 mg Pantoprazole Sodium (Protonix -) 40 mg PO BID [facility] Last Admin: 03/12/19 21:02 Dose: Not Given Tamsulosin HCl (Flomax -) 0.4 mg PO DAILY@0830 [facility] Last Admin: 03/12/19 09:23 Dose: 0.4 mg - Objective Vital Signs: Vital Signs Temperature 99.1 F 03/13/19 05:00 Pulse Rate 79 03/13/19 05:00 Respiratory Rate 20 03/13/19 05:00 Blood Pressure 119/57 L 03/13/19 05:00 O2 Sat by Pulse Oximetry (%) 98 03/12/19 21:00 Cardiovascular: Yes: Regular Rate and Rhythm Respiratory: Yes: Regular, CTA Bilaterally Gastrointestinal: Yes: Normal Bowel Sounds, Soft Labs: CBC, BMP 03/12/19 07:35 03/12/19 07:35 INR, PTT INR 1.24 (0.83-1.09) H 03/10/19 12:50 Assessment/Plan Problems (1) Esophageal obstruction due to food impaction Assessment/Plan: -GI on board -clear liquids -patient is scheduled for emergent EGD -PIECE DYER consult for swallow eval -Esophogram for tuesday -For dilation needs to be off AC Code(s): K22.2 - ESOPHAGEAL OBSTRUCTION; T18.128A - FOOD IN ESOPHAGUS CAUSING OTHER INJURY, INITIAL ENCOUNTER (2) COPD (chronic obstructive pulmonary disease) Assessment/Plan: -Bronchodilators -O2 via NC -keep SpO2 >90% -Montelukast Code(s): J44.9 - CHRONIC OBSTRUCTIVE PULMONARY DISEASE, UNSPECIFIED (3) Diabetes Assessment/Plan: -[facility] -[facility] -HgA1c 4.9% Code(s): E11.9 - TYPE 2 DIABETES MELLITUS WITHOUT COMPLICATIONS Qualifiers: Diabetes mellitus type: type 2 (4) GERD (gastroesophageal reflux disease) Assessment/Plan: -Pantoprazole Code(s): K21.9 - GASTRO-ESOPHAGEAL REFLUX DISEASE WITHOUT ESOPHAGITIS (5) History of pulmonary embolism Assessment/Plan: -Eliquis Code(s): Z86.711 - PERSONAL HISTORY OF PULMONARY EMBOLISM (6) Sickle cell anemia Assessment/Plan: -IV hydration -Folic Acid -O2 via NC -pain control Code(s): D57.1 - SICKLE-CELL DISEASE WITHOUT CRISIS Qualifiers: Sickle-cell associated disorders: without crisis Qualified Code(s): D57.1 - Sickle-cell disease without crisis (7) HTN (hypertension) Assessment/Plan: -Atenolol, HCTZ, Losartan Code(s): I10 - ESSENTIAL (PRIMARY) HYPERTENSION Qualifiers: Hypertension type: essential hypertension Qualified Code(s): I10 - Essential (primary) hypertension (8) Dvt-PE Assessment/Plan: -Eliquis -Hem and Vascular (9) Dysphagia Assessment/Plan: -GI on board -clear liquids -patient had EGD Esophageal striucture, possible short segment dobson's noted on yesterday's evaluation:--Dilation Protonix 40mg daily Advanced to full liquids Esophagram -PIECE DYER consult for swallow eval -Esophogram Code(s): R13.10 - DYSPHAGIA, UNSPECIFIED
[2019-03-13] MEDS: DOCUSATE SODIUM 100 MG CAPSULE (FP) PO SCH (10:41)
[2019-03-13] MEDS: HYDROCHLOROTHIAZIDE 12.5 MG CAPSULE (FP) PO SCH ×2 (10:41→21:24)
[2019-03-13] MEDS: FOLIC ACID 1 MG TABLET (FP) PO SCH (10:41)
[2019-03-13] MEDS: GABAPENTIN 300 MG CAPSULE PO SCH ×2 (10:41→21:25)
[2019-03-13] MEDS: TAMSULOSIN HCL 0.4 MG CAP PO SCH (10:41)
[2019-03-13] MEDS: DULoxetine HCL 30 MG CAPSULE.DR PO SCH ×2 (10:42→21:24)
[2019-03-13] MEDS: CHOLECALCIFEROL (VIT D3) 1,000 UNIT (25 MCG) TABLET PO SCH (10:42)
[2019-03-13] MEDS: PANTOPRAZOLE 40 MG TABLET PO SCH ×2 (10:42→21:24)
[2019-03-13] MEDS: APIXABAN 5 MG TABLET PO SCH ×2 (10:42→21:24)
[2019-03-13] MEDS: ATENOLOL 25 MG TABLET (FP) PO SCH (10:42)
[2019-03-13] MEDS: LOSARTAN POTASSIUM 50 MG TABLET (FP) PO SCH (10:43)
--- NOTE | 2019-03-13 10:49 | CONSULT ---
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 Pt has multiple admissions due to sickle crisis with most recent being in 12/2018. Pt reports she is known to the service and has been seen numerous times at her [facility]. Her last crisis was in December with some chest discomfort and shortness of breath. Currently, Pt was found to have esophageal stricture requiring dilation via GI recommendations, however pt is a high bleeding risk due to her long-term Eliquis use. We were asked to evaluate the patient for guidance regarding AC use katina-procedurally. Pt was previously on Coumadin, however had recurrent thromboembolus events and was switched to Eliquis about 6-8 months ago. Pt has not had any events while on Eliquis. She denies any bleeding including gingival , GI, or hematuria while on Eliquis. Denies any fever/chills, SOB, cough, palpitations, CP/discomfort, abdominal pain, extremity pain, back pain, hematuria, melena/hematochezia. PMHx: As above + polysubstance use (methadone/oxycodone) PSHx: Cholecystectomy, Hysterectomy, B/l hip replacement SoHx: Tobacco - Denies Alcohol - Denies Drugs - Denies Family Hx: Father- lung cancer (unknown type), Mother- HTN, diabetes, stroke PHYSICAL EXAMINATION Vital Signs - 24 hr 03/12/19 03/12/19 03/12/19 13:51 17:12 21:00 Temperature 98.3 F 97.9 F Pulse Rate 65 65 Respiratory 20 20 Rate Blood Pressure 123/67 132/74 O2 Sat by Pulse 98 Oximetry (%) 03/12/19 03/13/19 03/13/19 23:00 05:00 09:58 Temperature 98.2 F 99.1 F 98.0 F Pulse Rate 64 79 78 Respiratory 18 20 18 Rate Blood Pressure 128/68 119/57 L 114/69 O2 Sat by Pulse Oximetry (%) GENERAL: NAD, Awake, alert, and fully oriented HEENT: NC/AT, EOMI, CHHAYA, no sclera anicteric, MMM without any signs of bleeding or exudates NECK: No JVD, or masses. LUNGS: CTA bilaterally. No wheezes, and no crackles. No accessory muscle use. On RA HEART: RRR, normal S1 and S2 without murmur ABDOMEN: Soft, NT/ND, nondistended, normoactive BS, no hepatomegaly, no splenomegaly via palpation. EXTREMITIES: 2+ distal pulses, warm, No calf tenderness. No peripheral edema. No clubbing noted PSYCHIATRIC: Cooperative. Good eye contact. Appropriate mood and affect. SKIN: Warm, dry, no rashes or lesions noted. Active Medications Generic Name Dose Route Start Last Admin Trade Name Freq PRN Reason Stop Dose Admin Albuterol Sulfate 1 amp 03/10/19 18:09 Ventolin 0.083% Nebulizer Soln - NEB Q6H PRN SHORT OF BREATH/WHEEZING Apixaban 5 mg 03/10/19 22:00 03/13/19 10:42 Eliquis - PO 5 mg BID SORAYA Administration Atenolol 25 mg 03/11/19 10:00 03/13/19 10:42 Tenormin - PO 25 mg DAILY SORAYA Administration Cholecalciferol 1,000 unit 03/11/19 10:00 03/13/19 10:42 Vitamin D3 - PO 1,000 unit DAILY SORAYA Administration Docusate Sodium 100 mg 03/11/19 10:00 03/13/19 10:41 Colace - PO 100 mg DAILY SORAYA Administration Duloxetine HCl 30 mg 03/10/19 22:00 03/13/19 10:42 Cymbalta - PO 30 mg BID SORAYA Administration Folic Acid 1 mg 03/11/19 10:00 03/13/19 10:41 Folic Acid - PO 1 mg DAILY SORAYA Administration Gabapentin 300 mg 03/10/19 22:00 03/13/19 10:41 Neurontin - PO 300 mg BID SORAYA Administration Hydrochlorothiazide 12.5 mg 03/10/19 22:00 03/13/19 10:41 Hctz - PO 12.5 mg BID SORAYA Administration Lactated Ringer's 1,000 mls @ 75 mls/hr 03/10/19 15:00 03/13/19 06:36 Lactated Ringers Solution IV 75 mls/hr ASDIR SORAYA Administration Insulin Aspart 1 vial 03/10/19 22:00 03/13/19 10:44 Novolog Vial Sliding Scale - SQ Not Given ACHS SORAYA Protocol Losartan Potassium 50 mg 03/11/19 10:00 03/13/19 10:43 Cozaar - PO 50 mg DAILY SORAYA Administration Montelukast Sodium 10 mg 03/10/19 22:00 03/12/19 21:01 Singulair - PO 10 mg HS SORAYA Administration Ondansetron HCl 4 mg 03/10/19 14:51 Zofran Injection IVPUSH Q6H PRN NAUSEA AND/OR VOMITING Oxycodone HCl 30 mg 03/11/19 11:43 03/13/19 03:59 Roxicodone - PO 30 mg QID PRN Administration PAIN LEVEL 6-10 Pantoprazole Sodium 40 mg 03/12/19 19:15 03/13/19 10:42 Protonix - PO 40 mg BID SORAYA Administration Tamsulosin HCl 0.4 mg 03/11/19 08:30 03/13/19 10:41 Flomax - PO 0.4 mg DAILY@0830 SORAYA Administration ASSESSMENT/PLAN: Esophageal stricture Recurrent thromboembolic events Sickle cell disease, not in crisis --Discussed with patient that she is a high risk of thromboembolic event, and high risk of bleed (post-dilation) with the current regimen she is on. Will discuss with Dr. Sofia/Diann and vascular with the idea of IVC placement ( temporary vs. permanent) to prevent PE for procedure --Will overall need to be off Eliquis for 48h per GI to have procedure --Vascular input appreciated regarding IVC vs. bridging --Ideally, agree with pre-operative hydration if anesthesia >30 min to prevent sickling crisis with monitoring of pt's fluid status. Case to be discussed Napoleon Quiles, DO - IM PGY-3 Visit type - Emergency Visit Emergency Visit: Yes ED Registration Date: 03/10/19 Care time: The patient presented to the Emergency Department on the above date and was hospitalized for further evaluation of their emergent condition. - New Patient This patient is new to me today: No - Critical Care Critical Care patient: No ATTENDING PHYSICIAN STATEMENT I saw and evaluated the patient. I reviewed the resident's note and discussed the case with the resident. I agree with the resident's findings and plan as documented. SUBJECTIVE: OBJECTIVE: ASSESSMENT AND PLAN:
--- NOTE | 2019-03-13 10:56 | EKG ---
Test Reason : Blood Pressure : / mmHG Vent. Rate : 073 BPM Atrial Rate : 073 BPM P-R Int : 154 ms QRS Dur : 078 ms QT Int : 338 ms P-R-T Axes : 062 -28 033 degrees QTc Int : 372 ms NORMAL SINUS RHYTHM WITH SINUS ARRHYTHMIA NORMAL ECG WHEN COMPARED WITH ECG OF 22-DEC-2018 21:30, NO SIGNIFICANT CHANGE WAS FOUND Confirmed by Aamir Edge MD ([id number]) on 03/13/2019 10:56:28 AM Referred [facility] Confirmed By:Aamir Edge MD
--- NOTE | 2019-03-13 15:17 | PN ---
Progress Note, OUTPATIENT PHYSICAL THERAPIST ASSISTANT - Note Progress Note: Selected Entries 03/12/19 03/12/19 03/12/19 01:00 06:47 09:00 Breakfast Lunch Supper Temperature 98.1 F 98.4 F 98 F 03/12/19 03/12/19 03/12/19 13:51 17:12 19:54 Breakfast 100% Lunch 100% Supper 100% Temperature 98.3 F 97.9 F 03/12/19 03/13/19 03/13/19 23:00 05:00 09:58 Breakfast Lunch Supper Temperature 98.2 F 99.1 F 98.0 F 03/13/19 03/13/19 10:59 14:23 Breakfast 100% Lunch 100% Supper Temperature 98.7 F Laboratory Tests 03/10/19 03/11/19 03/12/19 12:50 06:50 07:35 WBC 14.8 H 14.0 H 15.3 H Medical notes reviewed. 1.3 Barium pill did not pass stricture Soft diet ordered. . Pt reportedly tolerated spaghetti and meatballs. Consider chopped foods? Pt would like to continue to try soft, reg diet Educated pt on chewing well, alternating solids with liquids and completing meal with liquid OOB for all meals and for an hour after meals
--- NOTE | 2019-03-13 16:23 | PN ---
Teaching Attending Note Name of Resident: Napoleon Quiles ATTENDING PHYSICIAN STATEMENT I saw and evaluated the patient. I reviewed the resident's note and discussed the case with the resident. I agree with the resident's findings and plan as documented. SUBJECTIVE: Complicated case See history from Dr. Quiles SC disease with multiple admissions for painful crisis, pulmonary hypertension on home oxygen prn , history of DVT and 4 prior pulmonary emboli. Developed pulmonary emboli while on coumadin . On eliquis. Patient requires dilatation of esophagus which may be associated with significant bleeding risk. Also esophageal dilatation may require multiple procedures at 2 week intervals Patient clearly hypercoaguable, and is at risk for vascular event off a/c. Multiple co-morbid medical problems Last Vital Signs Temp Pulse Resp BP Pulse Ox 98.7 F 63 20 133/75 98 03/13/19 14:23 03/13/19 14:23 03/13/19 14:23 03/13/19 14:23 03/12/19 21:00 HEENT: JOHN, EOM Intact Oropharynx: No thrush, No mucositis Neck: Supple Nodes: Without adenopathy Breasts: Without masses Cor: RSR, No murmurs, No gallops Lungs: Clear to P&A Abd: Soft, Normal bowel sounds, No organomegaly Ext:No significant edema Skin: No rashes, Integument intact CBC, BMP 03/12/19 07:35 03/12/19 07:35 Current Medications Generic Name Dose Route Start Last Admin Trade Name Freq PRN Reason Stop Dose Admin Albuterol Sulfate 1 amp 03/10/19 18:09 Ventolin 0.083% Nebulizer Soln - NEB Q6H PRN SHORT OF BREATH/WHEEZING Apixaban 5 mg 03/10/19 22:00 03/13/19 10:42 Eliquis - PO 5 mg BID SORAYA Administration Atenolol 25 mg 03/11/19 10:00 03/13/19 10:42 Tenormin - PO 25 mg DAILY SORAYA Administration Cholecalciferol 1,000 unit 03/11/19 10:00 03/13/19 10:42 Vitamin D3 - PO 1,000 unit DAILY SORAYA Administration Docusate Sodium 100 mg 03/11/19 10:00 03/13/19 10:41 Colace - PO 100 mg DAILY SORAYA Administration Duloxetine HCl 30 mg 03/10/19 22:00 03/13/19 10:42 Cymbalta - PO 30 mg BID SORAYA Administration Folic Acid 1 mg 03/11/19 10:00 03/13/19 10:41 Folic Acid - PO 1 mg DAILY SORAYA Administration Gabapentin 300 mg 03/10/19 22:00 03/13/19 10:41 Neurontin - PO 300 mg BID SORAYA Administration Hydrochlorothiazide 12.5 mg 03/10/19 22:00 03/13/19 10:41 Hctz - PO 12.5 mg BID SORAYA Administration Lactated Ringer's 1,000 mls @ 75 mls/hr 03/10/19 15:00 03/13/19 06:36 Lactated Ringers Solution IV 75 mls/hr ASDIR SORAYA Administration Insulin Aspart 1 vial 03/10/19 22:00 03/13/19 10:44 Novolog Vial Sliding Scale - SQ Not Given ACHS [facility] Protocol Losartan Potassium 50 mg 03/11/19 10:00 03/13/19 10:43 Cozaar - PO 50 mg DAILY SORAYA Administration Montelukast Sodium 10 mg 03/10/19 22:00 03/12/19 21:01 Singulair - PO 10 mg HS SORAYA Administration Ondansetron HCl 4 mg 03/10/19 14:51 Zofran Injection IVPUSH Q6H PRN NAUSEA AND/OR VOMITING Oxycodone HCl 30 mg 03/11/19 11:43 03/13/19 12:25 Roxicodone - PO 30 mg QID PRN Administration PAIN LEVEL 6-10 Pantoprazole Sodium 40 mg 03/12/19 19:15 03/13/19 10:42 Protonix - PO 40 mg BID SORAYA Administration Tamsulosin HCl 0.4 mg 03/11/19 08:30 03/13/19 10:41 Flomax - PO 0.4 mg DAILY@0830 SORAYA Administration Impression: SC disease Multiple prior vascular events- DVT and 4 prior pulmonary emboli Pulmonary hypertension Need for esophageal dilatation Discussed with Marie Romo , and Dr. Tidwell. Hypercoaguable and in need of a/c Significant bleeding risk. One indication for pulmonary filter is for significant decrease in pulmonary reserve and inability to tolerate a new pulmonary emboli were it to occur. Prior vascular events and SC disease with pulmonary hypertension suggest several high risk factors for a vascular event. A second indication would be the high risk of bleeding with proposed procedure and the possible need to be off a/c for an extended period of time. A possible approach might be to d/c eliquis, place on heparin. Place a TEMPORARY FILTER and then proceed with esophageal dilatation. Once bleeding risk has diminished , resume eliquis after removing temporary filter. If multiple procedures are necessary, the filter can remain until full dilatation has been accomplished, and then filter removed. Will await vascular input. Will have Dr. Castro of pulmonary evaluate and solicit his thoughts. OBJECTIVE: ASSESSMENT AND PLAN:
--- NOTE | 2019-03-13 18:50 | PN ---
Progress Note (short form) - Note Progress Note: [facility] SC disease with multiple admissions for painful crisis, pulmonary hypertension on home oxygen prn , history of DVT and 4 prior pulmonary emboli. Developed pulmonary emboli while on coumadin . On eliquis. Patient requires dilatation of esophagus which may be associated with significant bleeding risk. Also esophageal dilatation may require multiple procedures at 2 week intervals Patient clearly hypercoaguable, and is at risk for vascular event off a/c. Can bridge pt with IV heparin. Can stop heparin 90 min before endoscopy. After the procedure, the following morning we can restart the heparin and then go back onto eliquis. Since pt is hypercoaguble, placing a filter can clot the vena cava, and the lower extremities, leading to a more morbidity. Will be on standby. Discussed case with zach. Armando Khan DO
[2019-03-13] MEDS: MONTELUKAST NA 10 MG TABLET PO SCH (21:24)
--- NOTE | 2019-03-14 07:14 | CON.PULM ---
Consult Consult Specialty:: PULM/CCM Referred by:: ESTEFANI Reason for Consultation:: SOB / COPD - History of Present Illness History of Present Illness: 73 F, sickle cell disease (SC), HTN, COPD due to previous smoking, chronic hypoxic respiratory failure on home O2, atrial fibrillation, h/o PE/DVT x 4 and developed a PE while on Coumadin. There is no specific history specific for OSAS although she does snore. Admitted for possible esophageal dilatation. Reports her breathing has been stable without recent acute exacerbations or need for steroids. - History Source History Provided By: Patient Limitations to Obtaining History: No Limitations - Past Medical History Cardio/Vascular: Yes: Deep Vein Thrombosis, HTN Pulmonary: Yes: Asthma, COPD, Pulmonary Embolus Gastrointestinal: Yes: Constipation, GERD Renal/: Yes: Renal Inusuff, Neurogenic Bladder Psych: Yes: Addictions, Other (Pain meds- methadone, oxycodone ) Musculoskeletal: Yes: Chronic low back pain Endocrine: Yes: Diabetes Mellitus - Past Surgical History Past Surgical History: Yes: Cholecystectomy, Hysterectomy, Joint Replacement - Alcohol/Substance Use Hx Alcohol Use: No History of Substance Use: reports: Prescription - Smoking History Smoking history: Never smoked Have you smoked in the past 12 months: No Aproximately how many cigarettes per day: 0 - Social History Usual Living Arrangement: With Spouse (in apartment with 3-4 steps to enter) ADL: Independent History of Recent Travel: No Home Medications - Allergies Allergies/Adverse Reactions: Allergies Allergy/AdvReac Type Severity Reaction Status Date / Time ciprofloxacin [From Cipro] Allergy Itching Verified 03/10/19 13:09 ciprofloxacin HCl Allergy Itching Verified 03/10/19 13:09 [From Cipro] codeine [Codeine] Allergy Verified 03/10/19 13:09 levofloxacin [From Levaquin] Allergy Itching Verified 03/10/19 13:09 Penicillins Allergy Itching Verified 03/10/19 13:09 Sulfa (Sulfonamide Allergy Verified 03/10/19 13:09 Antibiotics) tetanus immune globulin Allergy Verified 03/10/19 13:09 IV DYE Allergy Uncoded 03/10/19 13:09 - Home Medications Home Medications: Ambulatory Orders Folic Acid - 1 mg PO DAILY 02/11/13 Docusate Sodium [Colace -] 100 mg PO DAILY 04/06/15 Montelukast Na [Singulair -] 10 mg PO HS 04/06/15 Losartan Potassium [Cozaar -] 50 mg PO DAILY 01/21/18 Gabapentin [Neurontin -] 300 mg PO BID capsule 06/15/18 Omeprazole 20 mg PO BID 06/27/18 Apixaban [Eliquis] 5 mg PO BID #30 tablet MDD 2 06/30/18 Atenolol [Tenormin -] 25 mg PO DAILY tablet 06/30/18 Cholecalciferol (Vitamin D3) [Vitamin D3 -] 1,000 unit PO DAILY #30 tab Duloxetine HCl [Cymbalta -] 30 mg PO BID #30 capsule.dr MDD 2 06/30/18 Tamsulosin HCl [Flomax] 0.4 mg PO DAILY #30 cap.er.24h MDD 1 06/30/18 Hydrochlorothiazide [Hctz -] 12.5 g PO BID 03/10/19 Oxycodone HCl 30 mg PO QID 03/10/19 Oxycodone HCl [Oxycontin] 40 mg PO Q12H 03/12/19 Review of Systems - Review of Systems Constitutional: reports: No Symptoms Eyes: reports: No Symptoms HENT: reports: No Symptoms Neck: reports: No Symptoms Cardiovascular: denies: Chest Pain, Edema, Palpitations, Shortness of Breath Respiratory: reports: Snoring. denies: Cough, Hemoptysis, SOB, SOB on Exertion , Wheezing Gastrointestinal: reports: Bloating, Dysphagia, Indigestion Genitourinary: reports: No Symptoms Breasts: reports: No Symptoms Reported Musculoskeletal: reports: No Symptoms Integumentary: reports: No Symptoms Neurological: reports: No Symptoms Endocrine: reports: No Symptoms Hematology/Lymphatic: reports: No Symptoms Psychiatric: reports: No Symptoms Physical Exam Vital Sings: Vital Signs Temperature 98.2 F 03/14/19 06:45 Pulse Rate 71 03/14/19 06:45 Respiratory Rate 20 03/14/19 06:45 Blood Pressure 146/75 03/14/19 06:45 O2 Sat by Pulse Oximetry (%) 98 03/13/19 21:00 Constitutional: Yes: No Distress, Calm Eyes: Yes: Conjunctiva Clear, EOM Intact HENT: Yes: Atraumatic, Normocephalic Neck: Yes: Supple, Trachea Midline Cardiovascular: Yes: Regular Rate and Rhythm Respiratory: Yes: CTA Bilaterally. No: Rales, Rhonchi, SOB, SOB on Exertion, Stridor, Tachypnea, Wheezes ...Inspection: Yes: WNL ...Clubbing: No Gastrointestinal: Yes: Normal Bowel Sounds, Soft Renal/: Yes: WNL Musculoskeletal: Yes: WNL Extremities: Yes: WNL Edema: No Peripheral Pulses WNL: Yes Integumentary: Yes: WNL Neurological: Yes: WNL, Alert, Oriented ...Motor Strength: WNL Psychiatric: Yes: WNL, Alert, Oriented Labs: CBC, BMP 03/12/19 07:35 03/12/19 07:35 Imaging - Results Chest X-ray: Report Reviewed, Image Reviewed Problem List - Problems (1) Dysphagia Code(s): R13.10 - DYSPHAGIA, UNSPECIFIED (2) Esophageal stricture Code(s): K22.2 - ESOPHAGEAL OBSTRUCTION (3) Afib Code(s): I48.91 - UNSPECIFIED ATRIAL FIBRILLATION Qualifiers: Atrial fibrillation type: paroxysmal Qualified Code(s): I48.0 - Paroxysmal atrial fibrillation (4) Allergy to multiple antibiotics Code(s): Z88.1 - ALLERGY STATUS TO OTHER ANTIBIOTIC AGENTS STATUS (5) Anemia Code(s): D64.9 - ANEMIA, UNSPECIFIED (6) COPD (chronic obstructive pulmonary disease) Code(s): J44.9 - CHRONIC OBSTRUCTIVE PULMONARY DISEASE, UNSPECIFIED (7) Chronic back pain Code(s): M54.9 - DORSALGIA, UNSPECIFIED; G89.29 - OTHER CHRONIC PAIN (8) Diabetes Code(s): E11.9 - TYPE 2 DIABETES MELLITUS WITHOUT COMPLICATIONS Qualifiers: Diabetes mellitus type: type 2 (9) GERD (gastroesophageal reflux disease) Code(s): K21.9 - GASTRO-ESOPHAGEAL REFLUX DISEASE WITHOUT ESOPHAGITIS (10) History of pulmonary embolism Code(s): Z86.711 - PERSONAL HISTORY OF PULMONARY EMBOLISM (11) Pulmonary embolism Code(s): I26.99 - OTHER PULMONARY EMBOLISM WITHOUT ACUTE COR PULMONALE (12) Pulmonary embolism during treatment with long-term anticoagulation therapy Code(s): I26.99 - OTHER PULMONARY EMBOLISM WITHOUT ACUTE COR PULMONALE; Z79.01 - ROUTE RETURNER (CURRENT) USE OF ANTICOAGULANTS (13) Sickle cell anemia Code(s): D57.1 - SICKLE-CELL DISEASE WITHOUT CRISIS Qualifiers: Sickle-cell associated disorders: without crisis Qualified Code(s): D57.1 - Sickle-cell disease without crisis (14) HTN (hypertension) Code(s): I10 - ESSENTIAL (PRIMARY) HYPERTENSION Qualifiers: Hypertension type: essential hypertension Qualified Code(s): I10 - Essential (primary) hypertension Assessment/Plan IMP: Due to PE, COPD (on supplemental home O2), and possible OSAS, Ami is at an increased but reasonable risk for anesthesia and intervention. PLAN: Heparin bridge Once DOAC to be re-initiated would give full dose due to high risk but can confer with Heme Supplemental O2 as needed Can order NIPPV if needed No smoking Will follow closely Thank you. Dr Almaguer
--- NOTE | 2019-03-14 07:40 | PN.GI ---
GI Progress Note Subjective: Patient is tolerating soft diet and denies dysphagia, nausea, vomiting. LLQ tender on palpation. Denies diarrhea, constipation, rectal bleeding, melena. - Objective Vital Signs: Vital Signs Temperature 98.2 F 03/14/19 06:45 Pulse Rate 71 03/14/19 06:45 Respiratory Rate 20 03/14/19 06:45 Blood Pressure 146/75 03/14/19 06:45 O2 Sat by Pulse Oximetry (%) 98 03/13/19 21:00 Constitutional: No Distress, Calm Eyes: Yes: Conjunctiva Clear HENT: Yes: Atraumatic Cardiovascular: Yes: Regular Rate and Rhythm Respiratory: Yes: Regular, Wheezes Gastrointestinal Inspection: Yes: WNL. No: Ascites, Distention, Hernia, Scars, Other ...Auscultate: Yes: Normoactive Bowel Sounds. No: Hyperactive Bowel Sounds, Hypoactive Bowel Sounds, No Bowel Sounds, Other ...Palpate: Yes: Soft, Tenderness (llq). No: Firm/Rigid, Guarding, Hepatomegaly , Mass, Pulsatile Mass, Splenomegaly, Tenderness, Epigastium, Tenderness, Rebound, Other ...Percussion: Yes: Tympanitic. No: Dullness, Fluid Wave, Other Neurological: Yes: Alert, Oriented Psychiatric: Yes: Alert, Oriented Labs: CBC, BMP 03/12/19 07:35 03/12/19 07:35 INR, PTT INR 1.24 (0.83-1.09) H 03/10/19 12:50 Active Medications Generic Name Dose Route Start Last Admin Trade Name Freq PRN Reason Stop Dose Admin Albuterol Sulfate 1 amp 03/10/19 18:09 Ventolin 0.083% Nebulizer Soln - NEB Q6H PRN SHORT OF BREATH/WHEEZING Apixaban 5 mg 03/10/19 22:00 03/13/19 21:24 Eliquis - PO 5 mg BID SORAYA Administration Atenolol 25 mg 03/11/19 10:00 03/13/19 10:42 Tenormin - PO 25 mg DAILY SORAYA Administration Cholecalciferol 1,000 unit 03/11/19 10:00 03/13/19 10:42 Vitamin D3 - PO 1,000 unit DAILY SORAYA Administration Docusate Sodium 100 mg 03/11/19 10:00 03/13/19 10:41 Colace - PO 100 mg DAILY SORAYA Administration Duloxetine HCl 30 mg 03/10/19 22:00 03/13/19 21:24 Cymbalta - PO 30 mg BID SORAYA Administration Folic Acid 1 mg 03/11/19 10:00 03/13/19 10:41 Folic Acid - PO 1 mg DAILY SORAYA Administration Gabapentin 300 mg 03/10/19 22:00 03/13/19 21:25 Neurontin - PO 300 mg BID SORAYA Administration Hydrochlorothiazide 12.5 mg 03/10/19 22:00 03/13/19 21:24 Hctz - PO 12.5 mg BID SORAYA Administration Lactated Ringer's 1,000 mls @ 75 mls/hr 03/10/19 15:00 03/13/19 17:22 Lactated Ringers Solution IV Not Given ASDIR [facility] Insulin Aspart 1 vial 03/10/19 22:00 03/13/19 21:30 Novolog Vial Sliding Scale - SQ Not Given ACHS [facility] Protocol Losartan Potassium 50 mg 03/11/19 10:00 03/13/19 10:43 Cozaar - PO 50 mg DAILY SORAYA Administration Montelukast Sodium 10 mg 03/10/19 22:00 03/13/19 21:24 Singulair - PO 10 mg HS SORAYA Administration Ondansetron HCl 4 mg 03/10/19 14:51 Zofran Injection IVPUSH Q6H PRN NAUSEA AND/OR VOMITING Oxycodone HCl 30 mg 03/11/19 11:43 03/13/19 21:25 Roxicodone - PO 30 mg QID PRN Administration PAIN LEVEL 6-10 Pantoprazole Sodium 40 mg 03/12/19 19:15 03/13/19 21:24 Protonix - PO 40 mg BID SORAYA Administration Tamsulosin HCl 0.4 mg 03/11/19 08:30 03/13/19 10:41 Flomax - PO 0.4 mg DAILY@0830 SORAYA Administration Problem List - Problems (1) Dysphagia Assessment/Plan: >patient had esophagram and results reviewed >soft diet, advance as tolerated >Pantoprazole Code(s): R13.10 - DYSPHAGIA, UNSPECIFIED (2) Esophageal stricture Assessment/Plan: She will benefit in undergoing a dilation, however will need to stop Eliquis for 48 hours then will need to be placed on Heparin drip prior to and after the procedure. After the dilation she has a high risk of bleeding. At present she is taking her pills with out difficulty. She is poor candidate for Coumadin use because of breakthrough Pulmonary Embolism. R> hematology and vascular consult placed and recommendation reviewed and appreciated soft diet Pantoprazole 40mg bid complications of dilation including but not limited to e perforation and excessive bleeding, risk anesthesia Code(s): K22.2 - ESOPHAGEAL OBSTRUCTION
--- NOTE | 2019-03-14 08:11 | PN ---
Progress Note, Physician - Current Medication List Current Medications: Active Medications Albuterol Sulfate (Ventolin 0.083% Nebulizer Soln -) 1 amp NEB Q6H PRN PRN Reason: SHORT OF BREATH/WHEEZING Apixaban (Eliquis -) 5 mg PO BID [facility] Last Admin: 03/13/19 21:24 Dose: 5 mg Atenolol (Tenormin -) 25 mg PO DAILY [facility] Last Admin: 03/13/19 10:42 Dose: 25 mg Cholecalciferol (Vitamin D3 -) 1,000 unit PO DAILY [facility] Last Admin: 03/13/19 10:42 Dose: 1,000 unit Docusate Sodium (Colace -) 100 mg PO DAILY [facility] Last Admin: 03/13/19 10:41 Dose: 100 mg Duloxetine HCl (Cymbalta -) 30 mg PO BID [facility] Last Admin: 03/13/19 21:24 Dose: 30 mg Folic Acid (Folic Acid -) 1 mg PO DAILY [facility] Last Admin: 03/13/19 10:41 Dose: 1 mg Gabapentin (Neurontin -) 300 mg PO BID [facility] Last Admin: 03/13/19 21:25 Dose: 300 mg Hydrochlorothiazide (Hctz -) 12.5 mg PO BID [facility] Last Admin: 03/13/19 21:24 Dose: 12.5 mg Lactated Ringer's (Lactated Ringers Solution) 1,000 mls @ 75 mls/hr IV ASDIR [facility] Last Admin: 03/13/19 17:22 Dose: Not Given Insulin Aspart (Novolog Vial Sliding Scale -) 1 vial SQ ACHS [facility]; Protocol Last Admin: 03/13/19 21:30 Dose: Not Given Losartan Potassium (Cozaar -) 50 mg PO DAILY [facility] Last Admin: 03/13/19 10:43 Dose: 50 mg Montelukast Sodium (Singulair -) 10 mg PO HS [facility] Last Admin: 03/13/19 21:24 Dose: 10 mg Ondansetron HCl (Zofran Injection) 4 mg IVPUSH Q6H PRN PRN Reason: NAUSEA AND/OR VOMITING Oxycodone HCl (Roxicodone -) 30 mg PO QID PRN PRN Reason: PAIN LEVEL 6-10 Last Admin: 03/13/19 21:25 Dose: 30 mg Pantoprazole Sodium (Protonix -) 40 mg PO BID [facility] Last Admin: 03/13/19 21:24 Dose: 40 mg Tamsulosin HCl (Flomax -) 0.4 mg PO DAILY@0830 [facility] Last Admin: 03/13/19 10:41 Dose: 0.4 mg - Objective Vital Signs: Vital Signs Temperature 98.2 F 03/14/19 06:45 Pulse Rate 71 03/14/19 06:45 Respiratory Rate 20 03/14/19 06:45 Blood Pressure 146/75 03/14/19 06:45 O2 Sat by Pulse Oximetry (%) 98 03/13/19 21:00 Cardiovascular: Yes: Regular Rate and Rhythm Respiratory: Yes: Regular, CTA Bilaterally Gastrointestinal: Yes: Normal Bowel Sounds, Soft, Tenderness (left flank) Labs: CBC, BMP 03/12/19 07:35 03/12/19 07:35 INR, PTT INR 1.24 (0.83-1.09) H 03/10/19 12:50 Assessment/Plan Problems (1) Esophageal obstruction due to food impaction Assessment/Plan: -GI on board -clear liquids -patient is scheduled for emergent EGD -[employer] consult for swallow eval -Esophogram for tuesday--EGD TUESDAY Code(s): K22.2 - ESOPHAGEAL OBSTRUCTION; T18.128A - FOOD IN ESOPHAGUS CAUSING OTHER INJURY, INITIAL ENCOUNTER (2) COPD (chronic obstructive pulmonary disease) Assessment/Plan: -Bronchodilators -O2 via NC -keep SpO2 >90% -Montelukast Code(s): J44.9 - CHRONIC OBSTRUCTIVE PULMONARY DISEASE, UNSPECIFIED (3) Diabetes Assessment/Plan: -[facility] ACHS -ISS -HgA1c 4.9% Code(s): E11.9 - TYPE 2 DIABETES MELLITUS WITHOUT COMPLICATIONS Qualifiers: Diabetes mellitus type: type 2 (4) GERD (gastroesophageal reflux disease) Assessment/Plan: -Pantoprazole Code(s): K21.9 - GASTRO-ESOPHAGEAL REFLUX DISEASE WITHOUT ESOPHAGITIS (5) History of pulmonary embolism Assessment/Plan: -Eliquis--hold and start heparin Code(s): Z86.711 - PERSONAL HISTORY OF PULMONARY EMBOLISM (6) Sickle cell anemia Assessment/Plan: -IV hydration -Folic Acid -O2 via NC -pain control Code(s): D57.1 - SICKLE-CELL DISEASE WITHOUT CRISIS Qualifiers: Sickle-cell associated disorders: without crisis Qualified Code(s): D57.1 - Sickle-cell disease without crisis (7) HTN (hypertension) Assessment/Plan: -Atenolol, HCTZ, Losartan Code(s): I10 - ESSENTIAL (PRIMARY) HYPERTENSION Qualifiers: Hypertension type: essential hypertension Qualified Code(s): I10 - Essential (primary) hypertension (8) Abdominal Pain Assessment/Plan: -CT SCAN (9) Dysphagia Assessment/Plan: -GI on board -clear liquids -patient had EGD Esophageal striucture, possible short segment dobson's noted on yesterday's evaluation: Protonix 40mg daily Advanced to full liquids -egd tuesday--hold eliqu Code(s): R13.10 - DYSPHAGIA, UNSPECIFIED
[2019-03-14] MEDS ORDERED: HEPARIN NA (PORCINE) 5,000 UNITS/ML 1ML VIAL IVPUSH PRN (09:36)
[2019-03-14] MEDS: INSULIN SLIDING SCALE (NOVOLOG) 1 VIAL SQ SCH ×4 (10:10→22:50)
[2019-03-14] MEDS: oxyCODONE HCL 5 MG TABLET PO PRN (10:12)
[2019-03-14] MEDS: HYDROCHLOROTHIAZIDE 12.5 MG CAPSULE (FP) PO SCH ×2 (10:16→22:50)
[2019-03-14] MEDS: DULoxetine HCL 30 MG CAPSULE.DR PO SCH ×2 (10:16→22:50)
[2019-03-14] MEDS: TAMSULOSIN HCL 0.4 MG CAP PO SCH (10:16)
[2019-03-14] MEDS: CHOLECALCIFEROL (VIT D3) 1,000 UNIT (25 MCG) TABLET PO SCH (10:16)
[2019-03-14] MEDS: ATENOLOL 25 MG TABLET (FP) PO SCH (10:16)
[2019-03-14] MEDS: DOCUSATE SODIUM 100 MG CAPSULE (FP) PO SCH (10:16)
[2019-03-14] MEDS: GABAPENTIN 300 MG CAPSULE PO SCH ×2 (10:16→22:50)
[2019-03-14] MEDS: PANTOPRAZOLE 40 MG TABLET PO SCH ×2 (10:16→22:50)
[2019-03-14] MEDS: FOLIC ACID 1 MG TABLET (FP) PO SCH (10:16)
[2019-03-14] MEDS: LOSARTAN POTASSIUM 50 MG TABLET (FP) PO SCH (10:17)
--- NOTE | 2019-03-14 11:28 | PN ---
Progress Note, MANAGER CONCRETE - Note Progress Note: Pt tolerating reg, soft diet. Educated pt again on chewing well, alternating solids with liquids and completing meal with liquid OOB for all meals and for an hour after meals No further f/u indicated.
[2019-03-14] MEDS ORDERED: PT OWN MED DRAWER 7, Y5N ONE (12:14)
[2019-03-14] MEDS: HEPARIN SOD,PORK IN 0.45% NACL 25,000 UNIT/500 ML INFUS.BAG IVPB SCH (12:21)
[2019-03-14] MEDS: LACTATED RINGERS SOLUTION 1,000 ML IV SCH (15:59)
[2019-03-14] MEDS: MONTELUKAST NA 10 MG TABLET PO SCH (22:50)
[2019-03-14] MEDS: oxyCODONE HCL 40 MG SUSTAINED ACTING TABLET PO SCH (22:51)
[2019-03-15] MEDS: INSULIN SLIDING SCALE (NOVOLOG) 1 VIAL SQ SCH ×4 (06:00→21:09)
--- NOTE | 2019-03-15 08:27 | PN ---
Progress Note, Physician - Current Medication List Current Medications: Active Medications Albuterol Sulfate (Ventolin 0.083% Nebulizer Soln -) 1 amp NEB Q6H PRN PRN Reason: SHORT OF BREATH/WHEEZING Apixaban (Eliquis -) 5 mg PO BID [facility] Last Admin: 03/13/19 21:24 Dose: 5 mg Atenolol (Tenormin -) 25 mg PO DAILY [facility] Last Admin: 03/14/19 10:16 Dose: 25 mg Cholecalciferol (Vitamin D3 -) 1,000 unit PO DAILY [facility] Last Admin: 03/14/19 10:16 Dose: 1,000 unit Docusate Sodium (Colace -) 100 mg PO DAILY [facility] Last Admin: 03/14/19 10:16 Dose: 100 mg Duloxetine HCl (Cymbalta -) 30 mg PO BID [facility] Last Admin: 03/14/19 22:50 Dose: 30 mg Folic Acid (Folic Acid -) 1 mg PO DAILY [facility] Last Admin: 03/14/19 10:16 Dose: 1 mg Gabapentin (Neurontin -) 300 mg PO BID [facility] Last Admin: 03/14/19 22:50 Dose: 300 mg Heparin Sodium (Porcine) (Heparin -) 1,000 unit IVPUSH PRN PRN PRN Reason: Heparin Heparin Sodium (Porcine) (Heparin -) 5,000 unit IVPUSH PRN PRN PRN Reason: Heparin Hydrochlorothiazide (Hctz -) 12.5 mg PO BID [facility] Last Admin: 03/14/19 22:50 Dose: 12.5 mg HEPARIN SOD,PORK IN 0.45% NACL (Heparin-1/2ns 25,000 Units/500) 25,000 unit in 500 mls @ 16 mls/hr IVPB TITR [facility]; Protocol Last Titration: 03/14/19 23:04 Dose: 950 units/hr, 19 mls/hr Insulin Aspart (Novolog Vial Sliding Scale -) 1 vial SQ ACHS [facility]; Protocol Last Admin: 03/15/19 06:00 Dose: Not Given Losartan Potassium (Cozaar -) 50 mg PO DAILY [facility] Last Admin: 03/14/19 10:17 Dose: 50 mg Montelukast Sodium (Singulair -) 10 mg PO HS [facility] Last Admin: 03/14/19 22:50 Dose: 10 mg Ondansetron HCl (Zofran Injection) 4 mg IVPUSH Q6H PRN PRN Reason: NAUSEA AND/OR VOMITING Oxycodone HCl (Oxycontin -) 40 mg PO BID [facility] Last Admin: 03/14/19 22:51 Dose: 40 mg Pantoprazole Sodium (Protonix -) 40 mg PO BID [facility] Last Admin: 03/14/19 22:50 Dose: 40 mg Tamsulosin HCl (Flomax -) 0.4 mg PO DAILY@0830 [facility] Last Admin: 03/14/19 10:16 Dose: 0.4 mg - Objective Vital Signs: Vital Signs Temperature 98.5 F 03/15/19 05:00 Pulse Rate 74 03/15/19 05:00 Respiratory Rate 20 03/15/19 05:00 Blood Pressure 130/67 03/15/19 05:00 O2 Sat by Pulse Oximetry (%) 97 03/14/19 21:00 Labs: CBC, BMP 03/12/19 07:35 03/12/19 07:35 INR, PTT INR 1.24 (0.83-1.09) H 03/10/19 12:50
--- NOTE | 2019-03-15 08:37 | PN ---
Progress Note (short form) - Note Progress Note: Reports that she feels well this AM. Ambulating in room on RA. No acute events overnight. Intake & Output 03/12/19 03/13/19 03/14/19 03/15/19 23:59 23:59 23:59 23:59 Intake Total 2625 3473 1978 162 Balance 2625 3477 1978 162 Weight 174 lb Last Vital Signs Temp Pulse Resp BP Pulse Ox 98.5 F 74 20 130/67 97 03/15/19 05:00 03/15/19 05:00 03/15/19 05:00 03/15/19 05:00 03/14/19 21:00 Active Medications Albuterol Sulfate (Ventolin 0.083% Nebulizer Soln -) 1 amp NEB Q6H PRN PRN Reason: SHORT OF BREATH/WHEEZING Apixaban (Eliquis -) 5 mg PO BID [facility] Last Admin: 03/13/19 21:24 Dose: 5 mg Atenolol (Tenormin -) 25 mg PO DAILY [facility] Last Admin: 03/14/19 10:16 Dose: 25 mg Cholecalciferol (Vitamin D3 -) 1,000 unit PO DAILY [facility] Last Admin: 03/14/19 10:16 Dose: 1,000 unit Docusate Sodium (Colace -) 100 mg PO DAILY [facility] Last Admin: 03/14/19 10:16 Dose: 100 mg Duloxetine HCl (Cymbalta -) 30 mg PO BID [facility] Last Admin: 03/14/19 22:50 Dose: 30 mg Folic Acid (Folic Acid -) 1 mg PO DAILY [facility] Last Admin: 03/14/19 10:16 Dose: 1 mg Gabapentin (Neurontin -) 300 mg PO BID [facility] Last Admin: 03/14/19 22:50 Dose: 300 mg Heparin Sodium (Porcine) (Heparin -) 1,000 unit IVPUSH PRN PRN PRN Reason: Heparin Heparin Sodium (Porcine) (Heparin -) 5,000 unit IVPUSH PRN PRN PRN Reason: Heparin Hydrochlorothiazide (Hctz -) 12.5 mg PO BID [facility] Last Admin: 03/14/19 22:50 Dose: 12.5 mg HEPARIN SOD,PORK IN 0.45% NACL (Heparin-1/2ns 25,000 Units/500) 25,000 unit in 500 mls @ 16 mls/hr IVPB TITR [facility]; Protocol Last Titration: 03/14/19 23:04 Dose: 950 units/hr, 19 mls/hr Insulin Aspart (Novolog Vial Sliding Scale -) 1 vial SQ ACHS [facility]; Protocol Last Admin: 03/15/19 06:00 Dose: Not Given Losartan Potassium (Cozaar -) 50 mg PO DAILY [facility] Last Admin: 03/14/19 10:17 Dose: 50 mg Montelukast Sodium (Singulair -) 10 mg PO HS [facility] Last Admin: 03/14/19 22:50 Dose: 10 mg Ondansetron HCl (Zofran Injection) 4 mg IVPUSH Q6H PRN PRN Reason: NAUSEA AND/OR VOMITING Oxycodone HCl (Oxycontin -) 40 mg PO BID [facility] Last Admin: 03/14/19 22:51 Dose: 40 mg Pantoprazole Sodium (Protonix -) 40 mg PO BID [facility] Last Admin: 03/14/19 22:50 Dose: 40 mg Tamsulosin HCl (Flomax -) 0.4 mg PO DAILY@0830 [facility] Last Admin: 03/14/19 10:16 Dose: 0.4 mg Constitutional: Yes: No Distress, Calm Eyes: Yes: Conjunctiva Clear, EOM Intact HENT: Yes: Atraumatic, Normocephalic Neck: Yes: Supple, Trachea Midline Cardiovascular: Yes: Regular Rate and Rhythm Respiratory: Yes: CTA Bilaterally. No: Rales, Rhonchi, SOB, SOB on Exertion, Stridor, Tachypnea, Wheezes ...Inspection: Yes: WNL ...Clubbing: No Gastrointestinal: Yes: Normal Bowel Sounds, Soft Renal/: Yes: WNL Musculoskeletal: Yes: WNL Extremities: Yes: WNL Edema: No Peripheral Pulses WNL: Yes Integumentary: Yes: WNL Neurological: Yes: WNL, Alert, Oriented ...Motor Strength: WNL Psychiatric: Yes: WNL, Alert, Oriented Labs: Laboratory Results - last 24 hr 03/14/19 03/14/19 12:18 21:15 PTT (Actin FS) 31.9 33.7 Problem List - Problems (1) Dysphagia Code(s): R13.10 - DYSPHAGIA, UNSPECIFIED (2) Esophageal stricture Code(s): K22.2 - ESOPHAGEAL OBSTRUCTION (3) Afib Code(s): I48.91 - UNSPECIFIED ATRIAL FIBRILLATION Qualifiers: Atrial fibrillation type: paroxysmal Qualified Code(s): I48.0 - Paroxysmal atrial fibrillation (4) Allergy to multiple antibiotics Code(s): Z88.1 - ALLERGY STATUS TO OTHER ANTIBIOTIC AGENTS STATUS (5) Anemia Code(s): D64.9 - ANEMIA, UNSPECIFIED (6) COPD (chronic obstructive pulmonary disease) Code(s): J44.9 - CHRONIC OBSTRUCTIVE PULMONARY DISEASE, UNSPECIFIED (7) Chronic back pain Code(s): M54.9 - DORSALGIA, UNSPECIFIED; G89.29 - OTHER CHRONIC PAIN (8) Diabetes Code(s): E11.9 - TYPE 2 DIABETES MELLITUS WITHOUT COMPLICATIONS Qualifiers: Diabetes mellitus type: type 2 (9) GERD (gastroesophageal reflux disease) Code(s): K21.9 - GASTRO-ESOPHAGEAL REFLUX DISEASE WITHOUT ESOPHAGITIS (10) History of pulmonary embolism Code(s): Z86.711 - PERSONAL HISTORY OF PULMONARY EMBOLISM (11) Pulmonary embolism Code(s): I26.99 - OTHER PULMONARY EMBOLISM WITHOUT ACUTE COR PULMONALE (12) Pulmonary embolism during treatment with long-term anticoagulation therapy Code(s): I26.99 - OTHER PULMONARY EMBOLISM WITHOUT ACUTE COR PULMONALE; Z79.01 - CHEESE [employer]AYER (CURRENT) USE OF ANTICOAGULANTS (13) Sickle cell anemia Code(s): D57.1 - SICKLE-CELL DISEASE WITHOUT CRISIS Qualifiers: Sickle-cell associated disorders: without crisis Qualified Code(s): D57.1 - Sickle-cell disease without crisis (14) HTN (hypertension) Code(s): I10 - ESSENTIAL (PRIMARY) HYPERTENSION Qualifiers: Hypertension type: essential hypertension Qualified Code(s): I10 - Essential (primary) hypertension Assessment/Plan IMP: Due to PE, COPD (on supplemental home O2), and possible OSAS, Ami is at an increased but reasonable risk for anesthesia and intervention. PLAN: Heparin bridge Once DOAC to be re-initiated would give full dose due to high risk but can confer with Heme Supplemental O2 as needed Can order NIPPV if needed No smoking Dr Almaguer Problem List - Problems (1) Dysphagia Code(s): R13.10 - DYSPHAGIA, UNSPECIFIED (2) Esophageal stricture Code(s): K22.2 - ESOPHAGEAL OBSTRUCTION (3) Afib Code(s): I48.91 - UNSPECIFIED ATRIAL FIBRILLATION Qualifiers: Atrial fibrillation type: paroxysmal Qualified Code(s): I48.0 - Paroxysmal atrial fibrillation (4) Allergy to multiple antibiotics Code(s): Z88.1 - ALLERGY STATUS TO OTHER ANTIBIOTIC AGENTS STATUS (5) Anemia Code(s): D64.9 - ANEMIA, UNSPECIFIED (6) COPD (chronic obstructive pulmonary disease) Code(s): J44.9 - CHRONIC OBSTRUCTIVE PULMONARY DISEASE, UNSPECIFIED (7) Chronic back pain Code(s): M54.9 - DORSALGIA, UNSPECIFIED; G89.29 - OTHER CHRONIC PAIN (8) Diabetes Code(s): E11.9 - TYPE 2 DIABETES MELLITUS WITHOUT COMPLICATIONS Qualifiers: Diabetes mellitus type: type 2 (9) GERD (gastroesophageal reflux disease) Code(s): K21.9 - GASTRO-ESOPHAGEAL REFLUX DISEASE WITHOUT ESOPHAGITIS (10) History of pulmonary embolism Code(s): Z86.711 - PERSONAL HISTORY OF PULMONARY EMBOLISM (11) Pulmonary embolism Code(s): I26.99 - OTHER PULMONARY EMBOLISM WITHOUT ACUTE COR PULMONALE (12) Pulmonary embolism during treatment with long-term anticoagulation therapy Code(s): I26.99 - OTHER PULMONARY EMBOLISM WITHOUT ACUTE COR PULMONALE; Z79.01 - SNF (CURRENT) USE OF ANTICOAGULANTS (13) Sickle cell anemia Code(s): D57.1 - SICKLE-CELL DISEASE WITHOUT CRISIS Qualifiers: Sickle-cell associated disorders: without crisis Qualified Code(s): D57.1 - Sickle-cell disease without crisis (14) HTN (hypertension) Code(s): I10 - ESSENTIAL (PRIMARY) HYPERTENSION Qualifiers: Hypertension type: essential hypertension Qualified Code(s): I10 - Essential (primary) hypertension
[2019-03-15] MEDS ORDERED: PT OWN MED DRAWER 7, Y5N ONE (10:22)
[2019-03-15] MEDS: PANTOPRAZOLE 40 MG TABLET PO SCH ×2 (10:27→21:08)
[2019-03-15] MEDS: LOSARTAN POTASSIUM 50 MG TABLET (FP) PO SCH (10:27)
[2019-03-15] MEDS: CHOLECALCIFEROL (VIT D3) 1,000 UNIT (25 MCG) TABLET PO SCH (10:27)
[2019-03-15] MEDS: FOLIC ACID 1 MG TABLET (FP) PO SCH (10:27)
[2019-03-15] MEDS: GABAPENTIN 300 MG CAPSULE PO SCH ×2 (10:27→21:09)
[2019-03-15] MEDS: DOCUSATE SODIUM 100 MG CAPSULE (FP) PO SCH (10:27)
[2019-03-15] MEDS: HYDROCHLOROTHIAZIDE 12.5 MG CAPSULE (FP) PO SCH ×2 (10:27→21:08)
[2019-03-15] MEDS: ATENOLOL 25 MG TABLET (FP) PO SCH (10:27)
[2019-03-15] MEDS: DULoxetine HCL 30 MG CAPSULE.DR PO SCH ×2 (10:27→21:09)
[2019-03-15] MEDS: TAMSULOSIN HCL 0.4 MG CAP PO SCH (10:28)
[2019-03-15] MEDS: HEPARIN SOD,PORK IN 0.45% NACL 25,000 UNIT/500 ML INFUS.BAG IVPB SCH (10:28)
[2019-03-15] MEDS: HEPARIN NA (PORCINE) 5,000 UNITS/ML 1ML VIAL IVPUSH PRN ×2 (10:29→19:03)
[2019-03-15] MEDS: oxyCODONE HCL 40 MG SUSTAINED ACTING TABLET PO SCH ×2 (10:29→21:09)
[2019-03-15] MEDS: oxyCODONE HCL 5 MG TABLET PO PRN (18:23)
[2019-03-15] MEDS ORDERED: HEPARIN NA (PORCINE) 5,000 UNITS/ML 1ML VIAL IVPUSH PRN (19:25)
--- NOTE | 2019-03-15 19:35 | PN ---
Progress Note (short form) - Note Progress Note: ATTENDING PHYSICIAN STATEMENT I saw and evaluated the patient. I reviewed the resident's note and discussed the case with the resident. I agree with the resident's findings and plan as documented. 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 Developed pulmonary emboli while on coumadin . On eliquis. Patient requires dilatation of esophagus which may be associated with significant bleeding risk. Also esophageal dilatation may require multiple procedures at 2 week intervals Patient clearly hypercoagulable, and is at risk for vascular event off a/c. Multiple co-morbid medical problems Last Vital Signs Temp Pulse Resp BP Pulse Ox 98.1 F 77 18 130/75 97 03/15/19 19:26 03/15/19 19:26 03/15/19 19:26 03/15/19 19:26 03/15/19 09:00 HEENT: JOHN, EOM Intact Oropharynx: No thrush, No mucositis Neck: Supple Nodes: Without adenopathy Breasts: Without masses Cor: RSR, No murmurs, No gallops Lungs: Clear to P&A Abd: Soft, Normal bowel sounds, No organomegaly Ext:No significant edema Skin: No rashes, Integument intact 03/12/19 07:35 03/12/19 07:35 Current Medications Apixaban (Eliquis -) 5 mg PO BID [facility] Last Admin: 03/13/19 21:24 Dose: 5 mg Atenolol (Tenormin -) 25 mg PO DAILY [facility] Last Admin: 03/15/19 10:27 Dose: 25 mg Cholecalciferol (Vitamin D3 -) 1,000 unit PO DAILY [facility] Last Admin: 03/15/19 10:27 Dose: 1,000 unit Docusate Sodium (Colace -) 100 mg PO DAILY [facility] Last Admin: 03/15/19 10:27 Dose: 100 mg Duloxetine HCl (Cymbalta -) 30 mg PO BID [facility] Last Admin: 03/15/19 10:27 Dose: 30 mg Folic Acid (Folic Acid -) 1 mg PO DAILY [facility] Last Admin: 03/15/19 10:27 Dose: 1 mg Gabapentin (Neurontin -) 300 mg PO BID [facility] Last Admin: 03/15/19 10:27 Dose: 300 mg Heparin Sodium (Porcine) (Heparin -) 1,000 unit IVPUSH PRN PRN PRN Reason: Heparin Last Admin: 03/15/19 19:03 Dose: 1,000 unit Heparin Sodium (Porcine) (Heparin -) 5,000 unit IVPUSH PRN PRN PRN Reason: Heparin Stop: 03/16/19 03:00 Hydrochlorothiazide (Hctz -) 12.5 mg PO BID [facility] Last Admin: 03/15/19 10:27 Dose: 12.5 mg HEPARIN SOD,PORK IN 0.45% NACL (Heparin-1/2ns 25,000 Units/500) 25,000 unit in 500 mls @ 16 mls/hr IVPB TITR [facility]; Protocol Last Titration: 03/15/19 19:05 Dose: 1,150 units/hr, 23 mls/hr Insulin Aspart (Novolog Vial Sliding Scale -) 1 vial SQ ACHS [facility]; Protocol Last Admin: 03/15/19 16:55 Dose: Not Given Losartan Potassium (Cozaar -) 50 mg PO DAILY [facility] Last Admin: 03/15/19 10:27 Dose: 50 mg Montelukast Sodium (Singulair -) 10 mg PO HS [facility] Last Admin: 03/14/19 22:50 Dose: 10 mg Ondansetron HCl (Zofran Injection) 4 mg IVPUSH Q6H PRN PRN Reason: NAUSEA AND/OR VOMITING Oxycodone HCl (Oxycontin -) 40 mg PO BID [facility] Last Admin: 03/15/19 10:29 Dose: 40 mg Oxycodone HCl (Roxicodone -) 30 mg PO Q6H PRN PRN Reason: PAIN LEVEL 7 - 10 Last Admin: 03/15/19 18:23 Dose: 30 mg Pantoprazole Sodium (Protonix -) 40 mg PO BID [facility] Last Admin: 03/15/19 10:27 Dose: 40 mg Tamsulosin HCl (Flomax -) 0.4 mg PO DAILY@0830 [facility] Last Admin: 03/15/19 10:28 Dose: 0.4 mg Impression: SC disease Multiple prior vascular events- DVT and 4 prior pulmonary emboli. She is on heparin drip. Plan to go back to Apixaban Pulmonary hypertension Need for esophageal dilatation per GI Please see note by for details
[2019-03-15] MEDS: MONTELUKAST NA 10 MG TABLET PO SCH (21:08)
[2019-03-16] MEDS: INSULIN SLIDING SCALE (NOVOLOG) 1 VIAL SQ SCH ×4 (06:10→21:34)
[2019-03-16 10:06] LABS: HEMATOCRIT 31.7 % (32.4-45.2); HEMOGLOBIN 10.5 GM/dL (10.7-15.3); MCH 29.7 pg (25.7-33.7); MCHC 33.2 g/dl (32.0-36.0); MEAN CELL VOLUME 89.4 fl (80-96); MEAN PLT VOLUME 8.2 fl (7.5-11.1); PLATELET COUNT 335 K/MM3 (134-434); RBC 3.54 M/mm3 (3.60-5.2); RDW 17.9 % (11.6-15.6); WHITE BLOOD COUNT 13.6 K/mm3 (4.0-10.0)
--- NOTE | 2019-03-16 10:29 | PN ---
Progress Note, Physician - Current Medication List Current Medications: Active Medications Apixaban (Eliquis -) 5 mg PO BID [facility] Last Admin: 03/13/19 21:24 Dose: 5 mg Atenolol (Tenormin -) 25 mg PO DAILY [facility] Last Admin: 03/15/19 10:27 Dose: 25 mg Cholecalciferol (Vitamin D3 -) 1,000 unit PO DAILY [facility] Last Admin: 03/15/19 10:27 Dose: 1,000 unit Docusate Sodium (Colace -) 100 mg PO DAILY [facility] Last Admin: 03/15/19 10:27 Dose: 100 mg Duloxetine HCl (Cymbalta -) 30 mg PO BID [facility] Last Admin: 03/15/19 21:09 Dose: 30 mg Folic Acid (Folic Acid -) 1 mg PO DAILY [facility] Last Admin: 03/15/19 10:27 Dose: 1 mg Gabapentin (Neurontin -) 300 mg PO BID [facility] Last Admin: 03/15/19 21:09 Dose: 300 mg Heparin Sodium (Porcine) (Heparin -) 1,000 unit IVPUSH PRN PRN PRN Reason: Heparin Last Admin: 03/15/19 19:03 Dose: 1,000 unit Hydrochlorothiazide (Hctz -) 12.5 mg PO BID [facility] Last Admin: 03/15/19 21:08 Dose: 12.5 mg HEPARIN SOD,PORK IN 0.45% NACL (Heparin-1/2ns 25,000 Units/500) 25,000 unit in 500 mls @ 16 mls/hr IVPB TITR [facility]; Protocol Last Titration: 03/15/19 19:05 Dose: 1,150 units/hr, 23 mls/hr Insulin Aspart (Novolog Vial Sliding Scale -) 1 vial SQ ACHS [facility]; Protocol Last Admin: 03/16/19 06:10 Dose: Not Given Losartan Potassium (Cozaar -) 50 mg PO DAILY [facility] Last Admin: 03/15/19 10:27 Dose: 50 mg Montelukast Sodium (Singulair -) 10 mg PO HS [facility] Last Admin: 03/15/19 21:08 Dose: 10 mg Ondansetron HCl (Zofran Injection) 4 mg IVPUSH Q6H PRN PRN Reason: NAUSEA AND/OR VOMITING Oxycodone HCl (Oxycontin -) 40 mg PO BID [facility] Last Admin: 03/15/19 21:09 Dose: 40 mg Oxycodone HCl (Roxicodone -) 30 mg PO Q6H PRN PRN Reason: PAIN LEVEL 7 - 10 Last Admin: 03/15/19 18:23 Dose: 30 mg Pantoprazole Sodium (Protonix -) 40 mg PO BID [facility] Last Admin: 03/15/19 21:08 Dose: 40 mg Tamsulosin HCl (Flomax -) 0.4 mg PO DAILY@0830 [facility] Last Admin: 03/15/19 10:28 Dose: 0.4 mg - Objective Vital Signs: Vital Signs Temperature 97.1 F L 03/16/19 09:00 Pulse Rate 76 03/16/19 09:00 Respiratory Rate 18 03/16/19 09:00 Blood Pressure 126/71 03/16/19 09:00 O2 Sat by Pulse Oximetry (%) 98 03/16/19 09:00 Cardiovascular: Yes: Regular Rate and Rhythm Respiratory: Yes: Regular, CTA Bilaterally Gastrointestinal: Yes: Normal Bowel Sounds, Soft. No: Tenderness Labs: CBC, BMP 03/16/19 09:15 03/12/19 07:35 INR, PTT INR 1.24 (0.83-1.09) H 03/10/19 12:50 Assessment/Plan Problems (1) Esophageal obstruction due to food impaction Assessment/Plan: -GI on board -clear liquids -patient is scheduled for emergent EGD -[employer] MANAGEMENT ASSOCIATE consult for swallow eval -Esophogram for tuesday--EGD TUESDAY Code(s): K22.2 - ESOPHAGEAL OBSTRUCTION; T18.128A - FOOD IN ESOPHAGUS CAUSING OTHER INJURY, INITIAL ENCOUNTER (2) COPD (chronic obstructive pulmonary disease) Assessment/Plan: -Bronchodilators -O2 via NC -keep SpO2 >90% -Montelukast Code(s): J44.9 - CHRONIC OBSTRUCTIVE PULMONARY DISEASE, UNSPECIFIED (3) Diabetes Assessment/Plan: -BG ACHS -ISS -HgA1c 4.9% Code(s): E11.9 - TYPE 2 DIABETES MELLITUS WITHOUT COMPLICATIONS Qualifiers: Diabetes mellitus type: type 2 (4) GERD (gastroesophageal reflux disease) Assessment/Plan: -Pantoprazole Code(s): K21.9 - GASTRO-ESOPHAGEAL REFLUX DISEASE WITHOUT ESOPHAGITIS (5) History of pulmonary embolism Assessment/Plan: -Eliquis--start heparin TODAY 03/16 THEN ELIQUIS ON TUESDAY START WITH 10 BID FOE ONE WEEK THEN 5 BID Code(s): Z86.711 - PERSONAL HISTORY OF PULMONARY EMBOLISM (6) Sickle cell anemia Assessment/Plan: -IV hydration -Folic Acid -O2 via NC -pain control Code(s): D57.1 - SICKLE-CELL DISEASE WITHOUT CRISIS Qualifiers: Sickle-cell associated disorders: without crisis Qualified Code(s): D57.1 - Sickle-cell disease without crisis (7) HTN (hypertension) Assessment/Plan: -Atenolol, HCTZ, Losartan Code(s): I10 - ESSENTIAL (PRIMARY) HYPERTENSION Qualifiers: Hypertension type: essential hypertension Qualified Code(s): I10 - Essential (primary) hypertension (8) Abdominal Pain Assessment/Plan: -CT SCAN NOTED (9) Dysphagia Assessment/Plan: -GI on board Esophageal striucture S/P DILATION 03/16 possible short segment dobson's noted Protonix 40mg daily Advanced to full liquids -egd tuesday--hold eliquis Code(s): R13.10 - DYSPHAGIA, UNSPECIFIED
[2019-03-16] MEDS ORDERED: HEPARIN NA (PORCINE) 5,000 UNITS/ML 1ML VIAL IVPUSH PRN ×2 (11:07)
[2019-03-16] MEDS ORDERED: HEPARIN - 25,000 UNIT in SODIUM CHLORIDE 495 ML IV SCH (11:15)
[2019-03-16] MEDS: HYDROCHLOROTHIAZIDE 12.5 MG CAPSULE (FP) PO SCH ×2 (11:25→21:32)
[2019-03-16] MEDS: FOLIC ACID 1 MG TABLET (FP) PO SCH (11:25)
[2019-03-16] MEDS: CHOLECALCIFEROL (VIT D3) 1,000 UNIT (25 MCG) TABLET PO SCH (11:25)
[2019-03-16] MEDS: DOCUSATE SODIUM 100 MG CAPSULE (FP) PO SCH (11:25)
[2019-03-16] MEDS: ATENOLOL 25 MG TABLET (FP) PO SCH (11:25)
[2019-03-16] MEDS: GABAPENTIN 300 MG CAPSULE PO SCH ×2 (11:25→21:32)
[2019-03-16] MEDS: DULoxetine HCL 30 MG CAPSULE.DR PO SCH ×2 (11:25→21:33)
[2019-03-16] MEDS: TAMSULOSIN HCL 0.4 MG CAP PO SCH (11:26)
[2019-03-16] MEDS: oxyCODONE HCL 40 MG SUSTAINED ACTING TABLET PO SCH ×2 (11:26→21:33)
[2019-03-16] MEDS: LOSARTAN POTASSIUM 50 MG TABLET (FP) PO SCH (11:26)
[2019-03-16] MEDS: PANTOPRAZOLE 40 MG TABLET PO SCH ×2 (11:26→21:33)
[2019-03-16] MEDS ORDERED: PT OWN MED DRAWER 7, Y5N ONE ×2 (11:29→12:24)
--- NOTE | 2019-03-16 14:22 | PN ---
Progress Note (short form) - Note Progress Note: PULMONARY No acute events overnight. Complaining of wheezing this am Had esphageal dilatation this AM/tolerated liquids thus far Constitutional: Yes: No Distress, Calm Eyes: Yes: Conjunctiva Clear, EOM Intact HENT: Yes: Atraumatic, Normocephalic Neck: Yes: Supple, Trachea Midline Cardiovascular: Yes: Regular Rate and Rhythm Respiratory: Yes: Wheezes bilaterally ...Inspection: Yes: WNL ...Clubbing: No Gastrointestinal: Yes: Normal Bowel Sounds, Soft Renal/: Yes: WNL Musculoskeletal: Yes: WNL Extremities: Yes: WNL Edema: No Peripheral Pulses WNL: Yes Integumentary: Yes: WNL Neurological: Yes: WNL, Alert, Oriented ...Motor Strength: WNL Psychiatric: Yes: WNL, Alert, Oriented Labs: noted PLAN: Heparin bridge Once DOAC to be re-initiated would give full dose due to high risk but can confer with Heme Supplemental O2 as needed Can order NIPPV if needed No smoking Will order marcus POLANCO MD
[2019-03-16] MEDS: MONTELUKAST NA 10 MG TABLET PO SCH (21:33)
--- NOTE | 2019-03-16 21:59 | PN ---
Progress Note (short form) - Note Progress Note: PAtient seen and examined Denies any complaints s/p esophageal stricture dilattion AFVSS Cor: RSR, No murmurs, No gallops Lungs: Clear to P&A Abd: Soft, Normal bowel sounds, No organomegaly Ext:No significant edema LAbs/MEds reviewed A/P SC disease Multiple prior vascular events- DVT and 4 prior pulmonary emboli. She is on heparin drip. Plan to go back to Apix[facility] Pulmonary hypertension s/p esophageal dilatation per GI on heparin bridge
[2019-03-17] MEDS: INSULIN SLIDING SCALE (NOVOLOG) 1 VIAL SQ SCH (06:10)
[2019-03-17 08:18] LABS: HEMATOCRIT 29.5 % (32.4-45.2); HEMOGLOBIN 10.1 GM/dL (10.7-15.3); MCH 30.2 pg (25.7-33.7); MCHC 34.3 g/dl (32.0-36.0); MEAN CELL VOLUME 88.2 fl (80-96); MEAN PLT VOLUME 8.4 fl (7.5-11.1); PLATELET COUNT 314 K/MM3 (134-434); RBC 3.34 M/mm3 (3.60-5.2); RDW 17.6 % (11.6-15.6); WHITE BLOOD COUNT 13.5 K/mm3 (4.0-10.0)
[2019-03-17] MEDS: TAMSULOSIN HCL 0.4 MG CAP PO SCH (08:57)
--- NOTE | 2019-03-17 09:38 | PN ---
Progress Note, Physician Chief Complaint: Dysphagia Sickle Cell Esophageal stricture History of Present Illness: s/p esophageal stricture dilatation Tolerating full liquid diet On heparin drip to bridge for hx of recurrent DVT's NAD Ambulatory to bathroom - Current Medication List Current Medications: Active Medications Atenolol (Tenormin -) 25 mg PO DAILY [facility] Last Admin: 03/16/19 11:25 Dose: 25 mg Cholecalciferol (Vitamin D3 -) 1,000 unit PO DAILY [facility] Last Admin: 03/16/19 11:25 Dose: 1,000 unit Docusate Sodium (Colace -) 100 mg PO DAILY [facility] Last Admin: 03/16/19 11:25 Dose: 100 mg Duloxetine HCl (Cymbalta -) 30 mg PO BID [facility] Last Admin: 03/16/19 21:33 Dose: 30 mg Folic Acid (Folic Acid -) 1 mg PO DAILY [facility] Last Admin: 03/16/19 11:25 Dose: 1 mg Gabapentin (Neurontin -) 300 mg PO BID [facility] Last Admin: 03/16/19 21:32 Dose: 300 mg Heparin Sodium (Porcine) (Heparin -) 1,000 unit IVPUSH PRN PRN PRN Reason: Heparin Heparin Sodium (Porcine) (Heparin -) 5,000 unit IVPUSH PRN PRN PRN Reason: Heparin Last Admin: 03/17/19 02:59 Dose: 5,000 unit Hydrochlorothiazide (Hctz -) 12.5 mg PO BID [facility] Last Admin: 03/16/19 21:32 Dose: 12.5 mg Heparin Sodium (Porcine) 25, (000 unit/ Sodium Chloride) 500 mls @ 16 mls/hr IV TITR [facility]; Protocol Last Titration: 03/17/19 00:54 Dose: 950 unit/hr, 19 mls/hr Insulin Aspart (Novolog Vial Sliding Scale -) 1 vial SQ ACHS [facility]; Protocol Last Admin: 03/17/19 06:10 Dose: Not Given Losartan Potassium (Cozaar -) 50 mg PO DAILY [facility] Last Admin: 03/16/19 11:26 Dose: 50 mg Montelukast Sodium (Singulair -) 10 mg PO HS [facility] Last Admin: 03/16/19 21:33 Dose: 10 mg Ondansetron HCl (Zofran Injection) 4 mg IVPUSH Q6H PRN PRN Reason: NAUSEA AND/OR VOMITING Oxycodone HCl (Oxycontin -) 40 mg PO BID [facility] Last Admin: 03/16/19 21:33 Dose: 40 mg Oxycodone HCl (Roxicodone -) 30 mg PO Q6H PRN PRN Reason: PAIN LEVEL 7 - 10 Last Admin: 03/15/19 18:23 Dose: 30 mg Pantoprazole Sodium (Protonix -) 40 mg PO BID [facility] Last Admin: 03/16/19 21:33 Dose: 40 mg Tamsulosin HCl (Flomax -) 0.4 mg PO DAILY@0830 [facility] Last Admin: 03/17/19 08:57 Dose: 0.4 mg - Objective Vital Signs: Vital Signs Temperature 98.3 F 03/17/19 09:26 Pulse Rate 81 03/17/19 09:26 Respiratory Rate 20 03/17/19 09:26 Blood Pressure 134/76 03/17/19 09:26 O2 Sat by Pulse Oximetry (%) 98 03/16/19 21:00 Constitutional: Yes: Well Nourished, No Distress, Calm Cardiovascular: Yes: Regular Rate and Rhythm Respiratory: Yes: Regular Gastrointestinal: Yes: Normal Bowel Sounds, Soft, Tenderness (LLQ-pelvic) Genitourinary: Yes: WNL Musculoskeletal: Yes: WNL Extremities: Yes: WNL Edema: No Peripheral Pulses WNL: Yes Neurological: Yes: Alert, Oriented Psychiatric: Yes: Alert, Oriented Labs: CBC, BMP 03/17/19 06:50 03/12/19 07:35 INR, PTT INR 1.24 (0.83-1.09) H 03/10/19 12:50 Assessment/Plan (1) Esophageal obstruction due to food impaction Assessment/Plan: -GI on board -Tolerating full liquids---->advance diet to soft low sodium diet -S/P esophageal dilatation Code(s): K22.2 - ESOPHAGEAL OBSTRUCTION; T18.128A - FOOD IN ESOPHAGUS CAUSING OTHER INJURY, INITIAL ENCOUNTER (2) COPD (chronic obstructive pulmonary disease) Assessment/Plan: -Bronchodilators -O2 via NC -keep SpO2 >90% -Montelukast Code(s): J44.9 - CHRONIC OBSTRUCTIVE PULMONARY DISEASE, UNSPECIFIED (3) Diabetes Assessment/Plan: -HgA1c 4.9% -D/C BGM ACHS -D/C ISS Code(s): E11.9 - TYPE 2 DIABETES MELLITUS WITHOUT COMPLICATIONS Qualifiers: Diabetes mellitus type: type 2 (4) GERD (gastroesophageal reflux disease) Assessment/Plan: -Pantoprazole Code(s): K21.9 - GASTRO-ESOPHAGEAL REFLUX DISEASE WITHOUT ESOPHAGITIS (5) History of pulmonary embolism Assessment/Plan: -Start Eliquis 10 mg po BID x 7 days then transition to 5 mg po BID for recurrent DVT's+ PE Code(s): Z86.711 - PERSONAL HISTORY OF PULMONARY EMBOLISM (6) Sickle cell anemia Assessment/Plan: -PO hydration -Folic Acid -O2 via NC -pain control Code(s): D57.1 - SICKLE-CELL DISEASE WITHOUT CRISIS Qualifiers: Sickle-cell associated disorders: without crisis Qualified Code(s): D57.1 - Sickle-cell disease without crisis (7) HTN (hypertension) Assessment/Plan: -Atenolol, HCTZ, Losartan Code(s): I10 - ESSENTIAL (PRIMARY) HYPERTENSION Qualifiers: Hypertension type: essential hypertension Qualified Code(s): I10 - Essential (primary) hypertension (8) Abdominal Pain Assessment/Plan: -resolved (9) Dysphagia Assessment/Plan: -GI on board -03/11 Esophageal stricture S/P dilation 03/16 -short segment dobson's -Protonix 40mg daily -Tolerating full liquids---->advance diet to soft low sodium diet Code(s): R13.10 - DYSPHAGIA, UNSPECIFIED
[2019-03-17] MEDS: DOCUSATE SODIUM 100 MG CAPSULE (FP) PO SCH ×2 (09:41→09:45)
[2019-03-17] MEDS: FOLIC ACID 1 MG TABLET (FP) PO SCH (09:41)
[2019-03-17] MEDS: LOSARTAN POTASSIUM 50 MG TABLET (FP) PO SCH (09:41)
[2019-03-17] MEDS: DULoxetine HCL 30 MG CAPSULE.DR PO SCH ×2 (09:41→21:02)
[2019-03-17] MEDS: GABAPENTIN 300 MG CAPSULE PO SCH ×2 (09:42→21:02)
[2019-03-17] MEDS: PANTOPRAZOLE 40 MG TABLET PO SCH ×2 (09:42→21:02)
[2019-03-17] MEDS: ATENOLOL 25 MG TABLET (FP) PO SCH (09:42)
[2019-03-17] MEDS: HYDROCHLOROTHIAZIDE 12.5 MG CAPSULE (FP) PO SCH ×2 (09:42→21:02)
[2019-03-17] MEDS: oxyCODONE HCL 40 MG SUSTAINED ACTING TABLET PO SCH ×2 (09:42→21:02)
[2019-03-17] MEDS: CHOLECALCIFEROL (VIT D3) 1,000 UNIT (25 MCG) TABLET PO SCH (09:42)
[2019-03-17] MEDS: APIXABAN 5 MG TABLET PO SCH ×2 (13:31→21:02)
--- NOTE | 2019-03-17 13:41 | PN ---
Progress Note (short form) - Note Progress Note: PULMONARY No acute events overnight. Complaining of wheezing this am Had esphageal dilatation Constitutional: Yes: No Distress, Calm Eyes: Yes: Conjunctiva Clear, EOM Intact HENT: Yes: Atraumatic, Normocephalic Neck: Yes: Supple, Trachea Midline Cardiovascular: Yes: Regular Rate and Rhythm Respiratory: Yes: Wheezes bilaterally ...Inspection: Yes: WNL ...Clubbing: No Gastrointestinal: Yes: Normal Bowel Sounds, Soft Renal/: Yes: WNL Musculoskeletal: Yes: WNL Extremities: Yes: WNL Edema: No Peripheral Pulses WNL: Yes Integumentary: Yes: WNL Neurological: Yes: WNL, Alert, Oriented ...Motor Strength: WNL Psychiatric: Yes: WNL, Alert, Oriented Labs: noted PLAN: Heparin bridge Once DOAC to be re-initiated would give full dose due to high risk but can confer with Heme Supplemental O2 as needed No smoking Will order marcus POLANCO MD
[2019-03-17] MEDS: ALBUTEROL SO4 2.5/IPRATROPIUM 0.5 INH SOL 3 ML VIAL.NEB. NEB SCH ×2 (15:46→20:10)
[2019-03-17] MEDS: MONTELUKAST NA 10 MG TABLET PO SCH (21:02)
[2019-03-17] MEDS: SENNOSIDES 8.6MG TABLET (FP) PO SCH (21:08)
[2019-03-17] MEDS ORDERED: APIXABAN 5 MG TABLET PO SCH (22:00)
[2019-03-18] MEDS ORDERED: ALBUTEROL SO4 2.5/IPRATROPIUM 0.5 INH SOL 3 ML VIAL.NEB. NEB ONE (03:31)
[2019-03-18] MEDS: ALBUTEROL SO4 2.5/IPRATROPIUM 0.5 INH SOL 3 ML VIAL.NEB. NEB SCH ×4 (07:26→20:00)
--- NOTE | 2019-03-18 09:12 | PN ---
Progress Note, Physician Chief Complaint: Dysphagia Sickle Cell Esophageal stricture History of Present Illness: NAD s/p esophageal stricture dilatation Ambulatory to bathroom Tolerating po intake Restarted on Eliquis on same pre-procedural dose - Current Medication List Current Medications: Active Medications Albuterol/Ipratropium (Duoneb -) 1 amp NEB RQID [facility] Last Admin: 03/18/19 07:26 Dose: 1 amp Apixaban (Eliquis -) 5 mg PO BID [facility] Last Admin: 03/17/19 21:02 Dose: 5 mg Atenolol (Tenormin -) 25 mg PO DAILY [facility] Last Admin: 03/17/19 09:42 Dose: 25 mg Cholecalciferol (Vitamin D3 -) 1,000 unit PO DAILY [facility] Last Admin: 03/17/19 09:42 Dose: 1,000 unit Docusate Sodium (Colace -) 100 mg PO DAILY [facility] Last Admin: 03/17/19 09:45 Dose: 100 mg Duloxetine HCl (Cymbalta -) 30 mg PO BID [facility] Last Admin: 03/17/19 21:02 Dose: 30 mg Folic Acid (Folic Acid -) 1 mg PO DAILY [facility] Last Admin: 03/17/19 09:41 Dose: 1 mg Gabapentin (Neurontin -) 300 mg PO BID [facility] Last Admin: 03/17/19 21:02 Dose: 300 mg Hydrochlorothiazide (Hctz -) 12.5 mg PO BID [facility] Last Admin: 03/17/19 21:02 Dose: 12.5 mg Losartan Potassium (Cozaar -) 50 mg PO DAILY [facility] Last Admin: 03/17/19 09:41 Dose: 50 mg Montelukast Sodium (Singulair -) 10 mg PO HS [facility] Last Admin: 03/17/19 21:02 Dose: 10 mg Ondansetron HCl (Zofran Injection) 4 mg IVPUSH Q6H PRN PRN Reason: NAUSEA AND/OR VOMITING Oxycodone HCl (Oxycontin -) 40 mg PO BID [facility] Last Admin: 03/17/19 21:02 Dose: 40 mg Oxycodone HCl (Roxicodone -) 30 mg PO Q6H PRN PRN Reason: PAIN LEVEL 7 - 10 Last Admin: 03/15/19 18:23 Dose: 30 mg Pantoprazole Sodium (Protonix -) 40 mg PO BID [facility] Last Admin: 03/17/19 21:02 Dose: 40 mg Senna (Senna -) 2 tab PO HS [facility] Last Admin: 03/17/19 21:08 Dose: 2 tab Tamsulosin HCl (Flomax -) 0.4 mg PO DAILY@0830 [facility] Last Admin: 03/17/19 08:57 Dose: 0.4 mg - Objective Vital Signs: Vital Signs Temperature 98 F 03/18/19 06:49 Pulse Rate 94 H 03/18/19 06:49 Respiratory Rate 18 03/18/19 06:49 Blood Pressure 108/59 L 03/18/19 06:49 O2 Sat by Pulse Oximetry (%) 96 03/17/19 21:00 Constitutional: Yes: Well Nourished, No Distress, Calm Cardiovascular: Yes: Regular Rate and Rhythm Respiratory: Yes: Regular Gastrointestinal: Yes: Normal Bowel Sounds, Soft Genitourinary: Yes: WNL Musculoskeletal: Yes: WNL Extremities: Yes: WNL Edema: No Peripheral Pulses WNL: Yes Neurological: Yes: Alert, Oriented Psychiatric: Yes: Alert, Oriented Labs: CBC, BMP 03/17/19 06:50 03/12/19 07:35 INR, PTT INR 1.24 (0.83-1.09) H 03/10/19 12:50 Assessment/Plan (1) Esophageal obstruction due to food impaction Assessment/Plan: -GI on board -Tolerating soft low sodium diet -S/P esophageal dilatation Code(s): K22.2 - ESOPHAGEAL OBSTRUCTION; T18.128A - FOOD IN ESOPHAGUS CAUSING OTHER INJURY, INITIAL ENCOUNTER (2) COPD (chronic obstructive pulmonary disease) Assessment/Plan: -Bronchodilators -O2 via NC -keep SpO2 >90% -Montelukast Code(s): J44.9 - CHRONIC OBSTRUCTIVE PULMONARY DISEASE, UNSPECIFIED (3) Diabetes Assessment/Plan: -HgA1c 4.9% -D/C BGM ACHS -D/C ISS Code(s): E11.9 - TYPE 2 DIABETES MELLITUS WITHOUT COMPLICATIONS Qualifiers: Diabetes mellitus type: type 2 (4) GERD (gastroesophageal reflux disease) Assessment/Plan: -Pantoprazole Code(s): K21.9 - GASTRO-ESOPHAGEAL REFLUX DISEASE WITHOUT ESOPHAGITIS (5) History of pulmonary embolism Assessment/Plan: -Restarted Eliquis 5 mg po BID for recurrent DVT's+ PE Code(s): Z86.711 - PERSONAL HISTORY OF PULMONARY EMBOLISM (6) Sickle cell anemia Assessment/Plan: -PO hydration -Folic Acid -O2 via NC -pain control Code(s): D57.1 - SICKLE-CELL DISEASE WITHOUT CRISIS Qualifiers: Sickle-cell associated disorders: without crisis Qualified Code(s): D57.1 - Sickle-cell disease without crisis (7) HTN (hypertension) Assessment/Plan: -Atenolol, HCTZ, Losartan Code(s): I10 - ESSENTIAL (PRIMARY) HYPERTENSION Qualifiers: Hypertension type: essential hypertension Qualified Code(s): I10 - Essential (primary) hypertension (8) Abdominal Pain Assessment/Plan: -resolved (9) Dysphagia Assessment/Plan: -GI on board -03/11 Esophageal stricture S/P dilation 03/16 -short segment dobson's -Protonix 40mg daily -Tolerating soft low sodium diet Code(s): R13.10 - DYSPHAGIA, UNSPECIFIED D/C home in AM
[2019-03-18] MEDS: TAMSULOSIN HCL 0.4 MG CAP PO SCH (10:03)
[2019-03-18] MEDS: oxyCODONE HCL 40 MG SUSTAINED ACTING TABLET PO SCH ×2 (10:03→21:20)
[2019-03-18] MEDS: CHOLECALCIFEROL (VIT D3) 1,000 UNIT (25 MCG) TABLET PO SCH (10:03)
[2019-03-18] MEDS: ATENOLOL 25 MG TABLET (FP) PO SCH (10:03)
[2019-03-18] MEDS: DOCUSATE SODIUM 100 MG CAPSULE (FP) PO SCH (10:03)
[2019-03-18] MEDS: FOLIC ACID 1 MG TABLET (FP) PO SCH (10:03)
[2019-03-18] MEDS: HYDROCHLOROTHIAZIDE 12.5 MG CAPSULE (FP) PO SCH ×2 (10:03→21:20)
[2019-03-18] MEDS: PANTOPRAZOLE 40 MG TABLET PO SCH ×2 (10:03→21:20)
[2019-03-18] MEDS: APIXABAN 5 MG TABLET PO SCH ×2 (10:04→21:19)
[2019-03-18] MEDS: DULoxetine HCL 30 MG CAPSULE.DR PO SCH ×2 (10:04→21:20)
[2019-03-18] MEDS: LOSARTAN POTASSIUM 50 MG TABLET (FP) PO SCH (10:04)
[2019-03-18] MEDS: GABAPENTIN 300 MG CAPSULE PO SCH ×2 (10:04→21:19)
[2019-03-18] MEDS: POLYETHYLENE GLYCOL 3350 119 GM BTL PO SCH (12:16)
[2019-03-18] MEDS ORDERED: ALBUTEROL SO4 0.083% IH SOL 2.5 MG/3 ML VIAL.NEB. NEB PRN (12:18)
--- NOTE | 2019-03-18 12:21 | PN ---
Progress Note (short form) - Note Progress Note: PULMONARY No acute events overnight. Complaining of wheezing this am Had esphageal dilatation Constitutional: Yes: No Distress, Calm Eyes: Yes: Conjunctiva Clear, EOM Intact HENT: Yes: Atraumatic, Normocephalic Neck: Yes: Supple, Trachea Midline Cardiovascular: Yes: Regular Rate and Rhythm Respiratory: Yes: Wheezes bilaterally ...Inspection: Yes: WNL ...Clubbing: No Gastrointestinal: Yes: Normal Bowel Sounds, Soft Renal/: Yes: WNL Musculoskeletal: Yes: WNL Extremities: Yes: WNL Edema: No Peripheral Pulses WNL: Yes Integumentary: Yes: WNL Neurological: Yes: WNL, Alert, Oriented ...Motor Strength: WNL Psychiatric: Yes: WNL, Alert, Oriented Labs: noted PLAN: CXR ordered symbicort added continue duonebs qid/albuterol neb Q1 prn Supplemental O2 as needed No smoking Yobany POLANCO MD
[2019-03-18] MEDS: BUDESONIDE/FORMETEROL FUMARATE 80/4.5 mcg INHALER IH SCH ×2 (13:49→21:23)
[2019-03-18] MEDS: oxyCODONE HCL 5 MG TABLET PO PRN (16:11)
[2019-03-18 19:59] LABS: HEMATOCRIT 30.6 % (32.4-45.2); HEMOGLOBIN 10.2 GM/dL (10.7-15.3); MCH 29.3 pg (25.7-33.7); MCHC 33.2 g/dl (32.0-36.0); MEAN CELL VOLUME 88.5 fl (80-96); MEAN PLT VOLUME 8.1 fl (7.5-11.1); PLATELET COUNT 306 K/MM3 (134-434); RBC 3.46 M/mm3 (3.60-5.2); RDW 18.3 % (11.6-15.6); WHITE BLOOD COUNT 13.7 K/mm3 (4.0-10.0)
[2019-03-18] MEDS: MONTELUKAST NA 10 MG TABLET PO SCH (21:19)
[2019-03-18] MEDS: SENNOSIDES 8.6MG TABLET (FP) PO SCH (21:19)
[2019-03-19] MEDS: ALBUTEROL SO4 2.5/IPRATROPIUM 0.5 INH SOL 3 ML VIAL.NEB. NEB SCH ×2 (07:27→11:07)
[2019-03-19] MEDS: TAMSULOSIN HCL 0.4 MG CAP PO SCH (09:16)
[2019-03-19] MEDS: DULoxetine HCL 30 MG CAPSULE.DR PO SCH (09:17)
[2019-03-19] MEDS: LOSARTAN POTASSIUM 50 MG TABLET (FP) PO SCH (09:17)
[2019-03-19] MEDS: APIXABAN 5 MG TABLET PO SCH (09:17)
[2019-03-19] MEDS: DOCUSATE SODIUM 100 MG CAPSULE (FP) PO SCH (09:17)
[2019-03-19] MEDS: FOLIC ACID 1 MG TABLET (FP) PO SCH (09:18)
[2019-03-19] MEDS: HYDROCHLOROTHIAZIDE 12.5 MG CAPSULE (FP) PO SCH (09:18)
[2019-03-19] MEDS: POLYETHYLENE GLYCOL 3350 119 GM BTL PO SCH (09:19)
[2019-03-19] MEDS: oxyCODONE HCL 40 MG SUSTAINED ACTING TABLET PO SCH (09:19)
[2019-03-19] MEDS: GABAPENTIN 300 MG CAPSULE PO SCH (09:19)
[2019-03-19] MEDS: BUDESONIDE/FORMETEROL FUMARATE 80/4.5 mcg INHALER IH SCH (09:21)
[2019-03-19] MEDS: PANTOPRAZOLE 40 MG TABLET PO SCH (09:21)
[2019-03-19] MEDS: CHOLECALCIFEROL (VIT D3) 1,000 UNIT (25 MCG) TABLET PO SCH (09:21)
[2019-03-19] MEDS: ATENOLOL 25 MG TABLET (FP) PO SCH (09:21)
--- NOTE | 2019-03-19 10:18 | DS ---
Physical Examination Vital Signs: Vital Signs Temperature 98.1 F 03/19/19 06:52 Pulse Rate 83 03/19/19 06:52 Respiratory Rate 18 03/19/19 06:52 Blood Pressure 124/74 03/19/19 06:52 O2 Sat by Pulse Oximetry (%) 96 03/18/19 20:55 Findings/Remarks: Laboratory Last Values WBC 13.7 K/mm3 (4.0-10.0) H 03/18/19 19:06 RBC 3.46 M/mm3 (3.60-5.2) L 03/18/19 19:06 Hgb 10.2 GM/dL (10.7-15.3) L 03/18/19 19:06 Hct 30.6 % (32.4-45.2) L 03/18/19 19:06 MCV 88.5 fl (80-96) 03/18/19 19:06 MCH 29.3 pg (25.7-33.7) 03/18/19 19:06 MCHC 33.2 g/dl (32.0-36.0) 03/18/19 19:06 RDW 18.3 % (11.6-15.6) H 03/18/19 19:06 Plt Count 306 K/MM3 (134-434) 03/18/19 19:06 MPV 8.1 fl (7.5-11.1) 03/18/19 19:06 Absolute Neuts (auto) 9.0 K/mm3 (1.5-8.0) H 03/11/19 06:50 Neutrophils % 64.2 % (42.8-82.8) 03/11/19 06:50 Lymphocytes % 29.8 % (8-40) 03/11/19 06:50 Monocytes % 4.1 % (3.8-10.2) 03/11/19 06:50 Eosinophils % 1.2 % (0-4.5) 03/11/19 06:50 Basophils % 0.7 % (0-2.0) 03/11/19 06:50 Nucleated RBC % 1 % (0-0) H 03/11/19 06:50 PT with INR 14.70 SEC (9.7-13.0) H 03/10/19 12:50 INR 1.24 (0.83-1.09) H 03/10/19 12:50 PTT (Actin FS) 34.6 SECONDS (25.2-36.5) 03/18/19 19:06 Sodium 140 mmol/L (136-145) 03/12/19 07:35 Potassium 3.6 mmol/L (3.5-5.1) 03/12/19 07:35 Chloride 104 mmol/L (98-107) 03/12/19 07:35 Carbon Dioxide 31 mmol/L (21-32) 03/12/19 07:35 Anion Gap 6 MMOL/L (8-16) L 03/12/19 07:35 BUN 5.7 mg/dL (7-18) L 03/12/19 07:35 Creatinine 0.8 mg/dL (0.55-1.3) 03/12/19 07:35 Est GFR (CKD-EPI)AfAm 83.59 03/12/19 07:35 Est GFR (CKD-EPI)NonAf 72.12 03/12/19 07:35 POC Glucometer 120 UNITS (80-120) 03/10/19 20:19 Random Glucose 83 mg/dL (74-106) 03/12/19 07:35 Hemoglobin A1c % 4.9 % (4.2-6.3) 03/11/19 06:50 Calcium 9.1 mg/dL (8.5-10.1) 03/12/19 07:35 Phosphorus 2.8 mg/dL (2.5-4.9) 03/11/19 06:50 Magnesium 1.6 mg/dL (1.8-2.4) L 03/11/19 06:50 Total Bilirubin 1.1 mg/dL (0.2-1) H 03/12/19 07:35 AST 17 U/L (15-37) 03/12/19 07:35 ALT 7 U/L (13-61) L 03/12/19 07:35 Alkaline Phosphatase 79 U/L (45-117) 03/12/19 07:35 Total Protein 6.9 g/dl (6.4-8.2) 03/12/19 07:35 Albumin 2.9 g/dl (3.4-5.0) L 03/12/19 07:35 TSH 0.10 uIU/ml (0.358-3.74) L 03/11/19 06:50 Thyroxine (T4) 6.6 ug/dl (4.5-13.9) 03/11/19 06:50 Blood Type O POSITIVE 03/10/19 15:10 Antibody Screen Negative 03/10/19 15:10 Active Medications Generic Name Dose Route Start Last Admin Trade Name Freq PRN Reason Stop Dose Admin Albuterol Sulfate 1 amp 03/18/19 12:18 Ventolin 0.083% Nebulizer Soln - NEB Q1H PRN SHORT OF BREATH/WHEEZING Albuterol/Ipratropium 1 amp 03/17/19 16:00 03/19/19 07:27 Duoneb - NEB 1 amp RQID [facility] Administration Apixaban 5 mg 03/17/19 12:30 03/19/19 09:17 Eliquis - PO 5 mg BID [facility] Administration Atenolol 25 mg 03/11/19 10:00 03/19/19 09:21 Tenormin - PO 25 mg DAILY [facility] Administration Budesonide/Formoterol Fumarate 2 puff 03/18/19 12:30 03/19/19 09:21 Symbicort 80/4.5mcg - IH 2 puff BID [facility] Administration Cholecalciferol 1,000 unit 03/11/19 10:00 03/19/19 09:21 Vitamin D3 - PO 1,000 unit DAILY [facility] Administration Docusate Sodium 100 mg 03/11/19 10:00 03/19/19 09:17 Colace - PO 100 mg DAILY [facility] Administration Duloxetine HCl 30 mg 03/10/19 22:00 03/19/19 09:17 Cymbalta - PO 30 mg BID [facility] Administration Folic Acid 1 mg 03/11/19 10:00 03/19/19 09:18 Folic Acid - PO 1 mg DAILY [facility] Administration Gabapentin 300 mg 03/10/19 22:00 03/19/19 09:19 Neurontin - PO 300 mg BID [facility] Administration Hydrochlorothiazide 12.5 mg 03/10/19 22:00 03/19/19 09:18 Hctz - PO 12.5 mg BID [facility] Administration Losartan Potassium 50 mg 03/11/19 10:00 03/19/19 09:17 Cozaar - PO 50 mg DAILY [facility] Administration Montelukast Sodium 10 mg 03/10/19 22:00 03/18/19 21:19 Singulair - PO 10 mg HS [facility] Administration Ondansetron HCl 4 mg 03/10/19 14:51 Zofran Injection IVPUSH Q6H PRN NAUSEA AND/OR VOMITING Oxycodone HCl 40 mg 03/14/19 22:00 03/19/19 09:19 Oxycontin - PO 40 mg BID [facility] Administration Pantoprazole Sodium 40 mg 03/12/19 19:15 03/19/19 09:21 Protonix - PO 40 mg BID [facility] Administration Polyethylene Glycol 17 gm 03/18/19 10:45 03/19/19 09:19 Miralax (For Daily Use) - PO 17 grams DAILY [facility] Administration Senna 2 tab 03/17/19 22:00 03/18/19 21:19 Senna - PO 2 tab HS [facility] Administration Tamsulosin HCl 0.4 mg 03/11/19 08:30 03/19/19 09:16 Flomax - PO 0.4 mg DAILY@0830 [facility] Administration Constitutional: Yes: No Distress, Calm Eyes: Yes: Conjunctiva Clear HENT: Yes: Atraumatic Cardiovascular: Yes: Regular Rate and Rhythm Respiratory: Yes: Regular, Diminished, On Nasal O2 Gastrointestinal: Yes: Normal Bowel Sounds, Soft Musculoskeletal: Yes: WNL Extremities: Yes: WNL Edema: No Neurological: Yes: Alert, Oriented Psychiatric: Yes: Alert, Oriented Labs: CBC, BMP 03/18/19 19:06 03/12/19 07:35 Discharge Summary Problems reviewed: Yes Reason For Visit: OBSTRUCTION OF ESOPHAGUS DUE TO FOOD IMPACTION Current Active Problems Dysphagia (Acute) Esophageal obstruction due to food impaction (Acute) Esophageal stricture (Acute) Procedures: Principal: Endoscopy Hospital Course: Patient is a 74 y/o female with past medical history of Sickle Cell Disease, COPD O2 dependent, GUCCI, PE/DVT, Chronic lower back pain. Patient presented to ER for complaints of difficulty swallowing. She says last night she was eating brussel sprouts when she developed a choking sensation. She went home later that night and attempted to take her medication and threw them back up immediately after. Since then she has been unable to tolerate food or liquids. Patient underwent emergent EGD to remove food impaction and noted with stricture at distal esophagus. Repeat EGD performed for dilatation of esophageal stricture. She will need repeat EGD in 2 weeks of discharge. WIll need to be admitted 2 days prior to procedure to be started on Heparin drip. Episode of low SpO2 this AM 88%, after placed on 2L O2 via NC increase to 98%. Evaluated by pulmonary yesterday and started on Symbicort. CXR reviewed and no infiltrate or pleural effusion noted. Patient has home oxygen. Condition: Stable - Instructions Diet, Activity, Other Instructions: Follow up with Dr Wilkinson in 1 week discharge Follow up Dr Salazar in 1 week You will need another Endoscopy performed in [address] Salazar. Prior to your Endoscopy you will be admitted to 2 days before the procedure so your Eliquis can be held and you will be started on a Heparin drip. Continue with soft diet while at home continue with medication as prescribed return to ER if develop severe pain, respiratory distress, chest pain Referrals: Freddie Salazar MD [Staff Physician] - Javed Wilkinson MD [Primary Care Provider] - Disposition: HOME - Home Medications Comprehensive Discharge Medication List: Ambulatory Orders Folic Acid - 1 mg PO DAILY 02/11/13 Docusate Sodium [Colace -] 100 mg PO DAILY 04/06/15 Montelukast Na [Singulair -] 10 mg PO HS 04/06/15 Losartan Potassium [Cozaar -] 50 mg PO DAILY 01/21/18 Gabapentin [Neurontin -] 300 mg PO BID capsule 06/15/18 Apixaban [Eliquis] 5 mg PO BID #30 tablet MDD 2 06/30/18 Atenolol [Tenormin -] 25 mg PO DAILY tablet 06/30/18 Cholecalciferol (Vitamin D3) [Vitamin D3 -] 1,000 unit PO DAILY #30 tab Duloxetine HCl [Cymbalta -] 30 mg PO BID #[address] RANDOLPH 2 06/30/18 Tamsulosin HCl [Flomax] 0.4 mg PO DAILY #30 cap.er.24h MDD 1 06/30/18 Hydrochlorothiazide [Hctz -] 12.5 g PO BID 03/10/19 Oxycodone HCl 30 mg PO QID 03/10/19 Oxycodone HCl [Oxycontin] 40 mg PO Q12H 03/12/19 Albuterol 2.5/Ipratropium 0.5 [Duoneb -] 1 amp NEB RQID #60 amp 03/19/19 Apixaban [Eliquis -] 5 mg PO BID tablet 03/19/19 Budesonide/Formeterol Fumarate [SYMBICORT 80/4.5mcg -] 2 puff IH BID #1 inhaler 03/19/19 Pantoprazole Sodium [Protonix -] 40 mg PO BID #60 tablet.ec 03/19/19 Polyethylene Glycol 3350 [Miralax 119 gm Btl -] 17 gm PO DAILY #1 bottle
[2019-03-19 10:29] LABS: HEMATOCRIT 31.7 % (32.4-45.2); HEMOGLOBIN 10.7 GM/dL (10.7-15.3); MCH 29.8 pg (25.7-33.7); MCHC 33.6 g/dl (32.0-36.0); MEAN CELL VOLUME 88.7 fl (80-96); MEAN PLT VOLUME 8.1 fl (7.5-11.1); PLATELET COUNT 298 K/MM3 (134-434); RBC 3.58 M/mm3 (3.60-5.2); RDW 17.7 % (11.6-15.6); WHITE BLOOD COUNT 13.7 K/mm3 (4.0-10.0)
--- NOTE | 2019-03-19 13:27 | PN ---
Progress Note (short form) - Note Progress Note: Reports that she feels well this AM, although she does have some wheezing. Ambulating in room on RA in NAD. No acute events overnight. Intake & Output 03/16/19 03/17/19 03/18/19 03/19/19 23:59 23:59 23:59 23:59 Intake Total 718 780 Balance 718 780 Last Vital Signs Temp Pulse Resp BP Pulse Ox 98.5 F 102 H 20 116/68 93 L 03/19/19 08:05 03/19/19 10:28 03/19/19 08:05 03/19/19 08:05 03/19/19 10:28 Active Medications Albuterol Sulfate (Ventolin 0.083% Nebulizer Soln -) 1 amp NEB Q1H PRN PRN Reason: SHORT OF BREATH/WHEEZING Albuterol/Ipratropium (Duoneb -) 1 amp NEB RQID [facility] [place] Last Admin: 03/19/19 11:07 Dose: 1 amp Apixaban (Eliquis -) 5 mg PO BID [facility] [place] Last Admin: 03/19/19 09:17 Dose: 5 mg Atenolol (Tenormin -) 25 mg PO DAILY [facility] [place] Last Admin: 03/19/19 09:21 Dose: 25 mg Budesonide/Formoterol Fumarate (Symbicort 80/4.5mcg -) 2 puff IH BID [facility] [place] Last Admin: 03/19/19 09:21 Dose: 2 puff Cholecalciferol (Vitamin D3 -) 1,000 unit PO DAILY [facility] [place] Last Admin: 03/19/19 09:21 Dose: 1,000 unit Docusate Sodium (Colace -) 100 mg PO DAILY [facility] [place] Last Admin: 03/19/19 09:17 Dose: 100 mg Duloxetine HCl (Cymbalta -) 30 mg PO BID [facility] [place] Last Admin: 03/19/19 09:17 Dose: 30 mg Folic Acid (Folic Acid -) 1 mg PO DAILY [facility] [place] Last Admin: 03/19/19 09:18 Dose: 1 mg Gabapentin (Neurontin -) 300 mg PO BID [facility] [place] Last Admin: 03/19/19 09:19 Dose: 300 mg Hydrochlorothiazide (Hctz -) 12.5 mg PO BID [facility] [place] Last Admin: 03/19/19 09:18 Dose: 12.5 mg Losartan Potassium (Cozaar -) 50 mg PO DAILY [facility] [place] Last Admin: 03/19/19 09:17 Dose: 50 mg Montelukast Sodium (Singulair -) 10 mg PO [facility] Last Admin: 03/18/19 21:19 Dose: 10 mg Ondansetron HCl (Zofran Injection) 4 mg IVPUSH Q6H PRN PRN Reason: NAUSEA AND/OR VOMITING Oxycodone HCl (Oxycontin -) 40 mg PO BID [facility] [place] Last Admin: 03/19/19 09:19 Dose: 40 mg Pantoprazole Sodium (Protonix -) 40 mg PO BID [facility] [place] Last Admin: 03/19/19 09:21 Dose: 40 mg Polyethylene Glycol (Miralax (For Daily Use) -) 17 gm PO DAILY [facility] [place] Last Admin: 03/19/19 09:19 Dose: 17 grams Senna (Senna -) 2 tab PO [facility] Last Admin: 03/18/19 21:19 Dose: 2 tab Tamsulosin HCl (Flomax -) 0.4 mg PO DAILY@0830 [facility] [place] Last Admin: 03/19/19 09:16 Dose: 0.4 mg Constitutional: Yes: No Distress, Calm Eyes: Yes: Conjunctiva Clear, EOM Intact HENT: Yes: Atraumatic, Normocephalic Neck: Yes: Supple, Trachea Midline Cardiovascular: Yes: Regular Rate and Rhythm Respiratory: Yes: Scattered Wheezing. No: Rales, Rhonchi, SOB, SOB on Exertion , Stridor, Tachypnea, Wheezes ...Inspection: Yes: WNL ...Clubbing: No Gastrointestinal: Yes: Normal Bowel Sounds, Soft Renal/: Yes: WNL Musculoskeletal: Yes: WNL Extremities: Yes: WNL Edema: No Peripheral Pulses WNL: Yes Integumentary: Yes: WNL Neurological: Yes: WNL, Alert, Oriented ...Motor Strength: WNL Psychiatric: Yes: WNL, Alert, Oriented Labs: Laboratory Results - last 24 hr 03/18/19 03/18/19 03/19/19 19:06 19:06 09:40 WBC 13.7 H 13.7 H RBC 3.46 L 3.58 L Hgb 10.2 L 10.7 Hct 30.6 L 31.7 L MCV 88.5 88.7 MCH 29.3 29.8 MCHC 33.2 33.6 RDW 18.3 H 17.7 H Plt Count 306 298 MPV 8.1 8.1 PTT (Actin FS) 34.6 03/19/19 09:40 WBC RBC Hgb Hct MCV MCH MCHC RDW Plt Count MPV PTT (Actin FS) 36.2 Problem List - Problems (1) Dysphagia Code(s): R13.10 - DYSPHAGIA, UNSPECIFIED (2) Esophageal stricture Code(s): K22.2 - ESOPHAGEAL OBSTRUCTION (3) Afib Code(s): I48.91 - UNSPECIFIED ATRIAL FIBRILLATION Qualifiers: Atrial fibrillation type: paroxysmal Qualified Code(s): I48.0 - Paroxysmal atrial fibrillation (4) Allergy to multiple antibiotics Code(s): Z88.1 - ALLERGY STATUS TO OTHER ANTIBIOTIC AGENTS STATUS (5) Anemia Code(s): D64.9 - ANEMIA, UNSPECIFIED (6) COPD (chronic obstructive pulmonary disease) Code(s): J44.9 - CHRONIC OBSTRUCTIVE PULMONARY DISEASE, UNSPECIFIED (7) Chronic back pain Code(s): M54.9 - DORSALGIA, UNSPECIFIED; G89.29 - OTHER CHRONIC PAIN (8) Diabetes Code(s): E11.9 - TYPE 2 DIABETES MELLITUS WITHOUT COMPLICATIONS Qualifiers: Diabetes mellitus type: type 2 (9) GERD (gastroesophageal reflux disease) Code(s): K21.9 - GASTRO-ESOPHAGEAL REFLUX DISEASE WITHOUT ESOPHAGITIS (10) History of pulmonary embolism Code(s): Z86.711 - PERSONAL HISTORY OF PULMONARY EMBOLISM (11) Pulmonary embolism Code(s): I26.99 - OTHER PULMONARY EMBOLISM WITHOUT ACUTE COR PULMONALE (12) Pulmonary embolism during treatment with long-term anticoagulation therapy Code(s): I26.99 - OTHER PULMONARY EMBOLISM WITHOUT ACUTE COR PULMONALE; Z79.01 - [facility] (CURRENT) USE OF ANTICOAGULANTS (13) Sickle cell anemia Code(s): D57.1 - SICKLE-CELL DISEASE WITHOUT CRISIS Qualifiers: Sickle-cell associated disorders: without crisis Qualified Code(s): D57.1 - Sickle-cell disease without crisis (14) HTN (hypertension) Code(s): I10 - ESSENTIAL (PRIMARY) HYPERTENSION Qualifiers: Hypertension type: essential hypertension Qualified Code(s): I10 - Essential (primary) hypertension Assessment/Plan AC Prednisone 40mg OD x 5 days No smoking Patient has supplemental O2 at home There is no Pulmonary contraindication for DC Dr Almaguer Problem List - Problems (1) Dysphagia Code(s): R13.10 - DYSPHAGIA, UNSPECIFIED (2) Esophageal stricture Code(s): K22.2 - ESOPHAGEAL OBSTRUCTION (3) Afib Code(s): I48.91 - UNSPECIFIED ATRIAL FIBRILLATION Qualifiers: Atrial fibrillation type: paroxysmal Qualified Code(s): I48.0 - Paroxysmal atrial fibrillation (4) Allergy to multiple antibiotics Code(s): Z88.1 - ALLERGY STATUS TO OTHER ANTIBIOTIC AGENTS STATUS (5) Anemia Code(s): D64.9 - ANEMIA, UNSPECIFIED (6) COPD (chronic obstructive pulmonary disease) Code(s): J44.9 - CHRONIC OBSTRUCTIVE PULMONARY DISEASE, UNSPECIFIED (7) Chronic back pain Code(s): M54.9 - DORSALGIA, UNSPECIFIED; G89.29 - OTHER CHRONIC PAIN (8) Diabetes Code(s): E11.9 - TYPE 2 DIABETES MELLITUS WITHOUT COMPLICATIONS Qualifiers: Diabetes mellitus type: type 2 (9) GERD (gastroesophageal reflux disease) Code(s): K21.9 - GASTRO-ESOPHAGEAL REFLUX DISEASE WITHOUT ESOPHAGITIS (10) History of pulmonary embolism Code(s): Z86.711 - PERSONAL HISTORY OF PULMONARY EMBOLISM (11) Pulmonary embolism Code(s): I26.99 - OTHER PULMONARY EMBOLISM WITHOUT ACUTE COR PULMONALE (12) Pulmonary embolism during treatment with long-term anticoagulation therapy Code(s): I26.99 - OTHER PULMONARY EMBOLISM WITHOUT ACUTE COR PULMONALE; Z79.01 - [facility] (CURRENT) USE OF ANTICOAGULANTS (13) Sickle cell anemia Code(s): D57.1 - SICKLE-CELL DISEASE WITHOUT CRISIS Qualifiers: Sickle-cell associated disorders: without crisis Qualified Code(s): D57.1 - Sickle-cell disease without crisis (14) HTN (hypertension) Code(s): I10 - ESSENTIAL (PRIMARY) HYPERTENSION Qualifiers: Hypertension type: essential hypertension Qualified Code(s): I10 - Essential (primary) hypertension
[2019-03-19 15:10] VITALS: BP 105/67; PULSE 93; TEMP 98.4
== END 2019-03-19 15:53 | disposition home or self-care (01) | DRG 393 ==
LOC: JER 11:49 → JERBED 14:23 → J8W 20:43
PROVIDERS: ADMIT Family Medicine; ATTEND Family Medicine
PROC: 0DC38ZZ Extirpation of Matter from Lower Esophagus, Via Natural or Artificial Opening Endoscopic (ICD-10-PCS; 2019-03-10)
PROC: 0D738DZ Dilation of Lower Esophagus with Intraluminal Device, Via Natural or Artificial Opening Endoscopic (ICD-10-PCS; principal; 2019-03-16 07:30)
DX: T18.128A Food in esophagus causing other injury, initial encounter (principal); I26.99 Other pulmonary embolism without acute cor pulmonale; K22.2 Esophageal obstruction; R13.10 Dysphagia, unspecified; Z88.1 Allergy status to other antibiotic agents; J44.9 Chronic obstructive pulmonary disease, unspecified; K21.9 Gastro-esophageal reflux disease without esophagitis; D64.9 Anemia, unspecified; E11.9 Type 2 diabetes mellitus without complications; D57.1 Sickle-cell disease without crisis; Z79.01 Long term (current) use of anticoagulants; X58.XXXA Exposure to other specified factors, initial encounter; Y93.9 Activity, unspecified; Y92.89 Other specified places as the place of occurrence of the external cause; Y99.9 Unspecified external cause status; I48.0 Paroxysmal atrial fibrillation; I10 Essential (primary) hypertension; I27.20 Pulmonary hypertension, unspecified
CPT/HCPCS: 36415; 71045-TC-FY; 71046-TC-FY; 74176-TC; 74220-TC-FY; 80053; 82962; 83036; 83735; 84100; 84436; 84443; 85025; 85027; 85610; 85730; 86850; 86900; 86901; 93005; 93010; 94640; 94760; 94761; 97116-GP; 99285-25; J1644; Q9967

== ENCOUNTER 2021-09-14 23:55 | Inpatient (IN) | payer OTHER ==
[2021-09-15 00:08] VITALS: BMI 27.4
[2021-09-15] MEDS ORDERED: LACTATED RINGERS SOLUTION 1000 ML INFUS.BAG IV ONE (01:00)
[2021-09-15 02:54] LABS: HEMATOCRIT 25.4 % (32.4-45.2); HEMOGLOBIN 8.4 GM/dL (10.7-15.3); MCH 27.7 pg (25.7-33.7); MCHC 33.2 g/dl (32.0-36.0); MEAN CELL VOLUME 83.4 fl (80-96); MEAN PLT VOLUME 7.7 fl (7.5-11.1); PLATELET COUNT 381 10^3/uL (134-434); RBC 3.04 M/mm3 (3.60-5.2); RDW 18.6 % (11.6-15.6); WHITE BLOOD COUNT 20.4 K/mm3 (4.0-10.0)
[2021-09-15 03:00] LABS: INR 1.6 (0.83-1.09); PROTHROMBIN TIME (PATIENT) 18.5 SEC (9.7-13.0)
[2021-09-15 03:02] LABS: ACTIVATED PTT 32.6 SECONDS (25.2-36.5)
[2021-09-15 03:15] LABS: BLOOD UREA NITROGEN 20.2 mg/dL (7-18); CALCIUM 9.3 mg/dL (8.5-10.1)
[2021-09-15 03:16] LABS: ALBUMIN 3.9 g/dl (3.4-5.0)
[2021-09-15 03:18] LABS: CREATININE 1.3 mg/dL (0.55-1.3)
[2021-09-15 03:20] LABS: BILIRUBIN,TOTAL 0.6 mg/dL (0.2-1); TOT PROT 8.9 g/dl (6.4-8.2)
[2021-09-15] MEDS ORDERED: ACETAMINOPHEN 1000 MG/100 ML BAG IVPB PRN ×2 (04:08→06:09)
[2021-09-15] MEDS ORDERED: ONDANSETRON 4 MG/2 ML VIAL IVPUSH PRN (04:09)
[2021-09-15] MEDS ORDERED: DEXTROSE 5%-NORMAL SALINE 1,000 ML IV SCH (04:15)
[2021-09-15 05:13] LABS: ANISOCYTOSIS 3+; MACROCYTOSIS 0; ROULEAU 1+; TARGET CELLS 2+
[2021-09-15] MEDS ORDERED: METOPROLOL TARTRATE 5 MG/5 ML VIAL IVPUSH PRN (06:35)
[2021-09-15] MEDS ORDERED: ALBUTEROL SO4 HFA INHALER IH PRN (08:34)
[2021-09-15] MEDS ORDERED: PANTOPRAZOLE SODIUM 40 MG/100 ML BAG IVPB ONE (08:52)
[2021-09-15] MEDS ORDERED: BUDESONIDE/FORMETEROL FUMARATE 160/4.5 mcg INHALER IH SCH (10:00)
[2021-09-15] MEDS ORDERED: TIOTROPIUM BROMIDE 2.5 MCG (SPIRIVA) RESPIMAT INHALER IH SCH (10:00)
[2021-09-15] MEDS ORDERED: PANTOPRAZOLE SODIUM 40 MG VIAL IVPUSH SCH (10:00)
[2021-09-15 16:59] LABS: INR 1.45 (0.83-1.09); PROTHROMBIN TIME (PATIENT) 16.7 SEC (9.7-13.0)
[2021-09-15 17:03] LABS: BASO % 0.5 % (0-2.0); EOS % 0.7 % (0-4.5); HEMATOCRIT 24.7 % (32.4-45.2); HEMOGLOBIN 8.2 GM/dL (10.7-15.3); LYMPH % 17.9 % (8-40); MCH 27.6 pg (25.7-33.7); MCHC 33.1 g/dl (32.0-36.0); MEAN CELL VOLUME 83.4 fl (80-96); MEAN PLT VOLUME 8.2 fl (7.5-11.1); MONO % 4.1 % (3.8-10.2); NEUT % 76.8 % (42.8-82.8); PLATELET COUNT 380 10^3/uL (134-434); RBC 2.96 M/mm3 (3.60-5.2); WHITE BLOOD COUNT 17.1 K/mm3 (4.0-10.0)
[2021-09-15 17:20] LABS: BLOOD UREA NITROGEN 17.1 mg/dL (7-18); CALCIUM 9.3 mg/dL (8.5-10.1)
[2021-09-15 17:21] LABS: ALBUMIN 3.6 g/dl (3.4-5.0)
[2021-09-15 17:23] LABS: CREATININE 1.1 mg/dL (0.55-1.3)
[2021-09-15 17:25] LABS: BILIRUBIN,TOTAL 0.7 mg/dL (0.2-1); TOT PROT 8.6 g/dl (6.4-8.2)
[2021-09-15 20:00] VITALS: RESP 18; TEMP 98.6
[2021-09-15 20:41] VITALS: BP 134/67; PULSE 73
[2021-09-15] MEDS ORDERED: GlUCAGON HUMAN RECOMBINANT 1 MG/VIAL IVPUSH SCH (22:00)
== END 2021-09-15 20:40 | disposition short-term general hospital (02) | DRG 392 ==
LOC: JER 23:55 → JERBED 09-15 01:01
PROVIDERS: ADMIT Hospitalist; ATTEND Family Medicine
DX: K22.2 Esophageal obstruction (principal); N17.9 Acute kidney failure, unspecified; T18.128A Food in esophagus causing other injury, initial encounter; J44.9 Chronic obstructive pulmonary disease, unspecified; I10 Essential (primary) hypertension; I48.91 Unspecified atrial fibrillation; E11.9 Type 2 diabetes mellitus without complications; D57.1 Sickle-cell disease without crisis; M54.50 Low back pain, unspecified; N31.9 Neuromuscular dysfunction of bladder, unspecified; G89.29 Other chronic pain; N28.9 Disorder of kidney and ureter, unspecified; X58.XXXA Exposure to other specified factors, initial encounter; Y93.9 Activity, unspecified; Y92.9 Unspecified place or not applicable; Z96.643 Presence of artificial hip joint, bilateral; Z99.81 Dependence on supplemental oxygen; Z86.718 Personal history of other venous thrombosis and embolism; Z86.711 Personal history of pulmonary embolism
CPT/HCPCS: 36415; 71046-TC-FY; 80053; 85025; 85610; 85730; 86850; 86900; 86901; 93005; 93010; 99285-25; C9803-CS; U0003; U0005

== ENCOUNTER 2023-10-31 20:06 | Observation (INO) | payer OTHER ==
[2023-10-31 20:14] VITALS: BMI 27.4
[2023-10-31] MEDS ORDERED: GLUCAGON 1 MG KIT ONE (22:43)
[2023-10-31] MEDS ORDERED: ONDANSETRON 4 MG/2 ML VIAL ONE (22:44)
[2023-10-31 22:48] LABS: HEMATOCRIT 19.7 % (32.4-45.2); MCH 27.3 pg (25.7-33.7); MCHC 32.9 g/dl (32.0-36.0); MEAN PLT VOLUME 8.1 fl (7.5-11.1); PLATELET COUNT 327 10^3/uL (134-434); RBC 2.37 M/mm3 (3.60-5.2); WHITE BLOOD COUNT 14.3 K/mm3 (4.0-10.0)
[2023-10-31 22:51] LABS: HEMOGLOBIN 6.5 GM/dL (10.7-15.3)
[2023-10-31 22:55] LABS: INR 1.43 (0.83-1.09)
[2023-10-31 22:57] LABS: ACTIVATED PTT 31.6 SECONDS (25.2-36.5)
[2023-10-31] MEDS: ONDANSETRON 4 MG/2 ML VIAL IVPUSH ONE (23:09)
[2023-10-31] MEDS: GLUCAGON 1 MG KIT IVPUSH ONE (23:09)
[2023-10-31 23:15] LABS: ANISOCYTOSIS 3+; MACROCYTOSIS 0; TARGET CELLS 2+
[2023-10-31 23:25] LABS: POTASSIUM 4.7 mmol/L (3.5-5.1)
[2023-10-31 23:26] LABS: CALCIUM 9.4 mg/dL (8.5-10.1)
[2023-10-31 23:28] LABS: ALBUMIN 3.3 g/dl (3.4-5.0); BLOOD UREA NITROGEN 28.2 mg/dL (7-18)
[2023-10-31 23:30] LABS: CREATININE 1.1 mg/dL (0.55-1.3)
[2023-10-31 23:32] LABS: BILIRUBIN,TOTAL 0.8 mg/dL (0.2-1)
[2023-11-01] MEDS: SODIUM CHLORIDE 0.9% 500 ML INFUS.BAG IV ONE (00:05)
[2023-11-01] MEDS ORDERED: PANTOPRAZOLE SODIUM 40 MG/100 ML BAG IVPB ONE (01:23)
[2023-11-01] MEDS: PANTOPRAZOLE SODIUM 40 MG VIAL IVPUSH ONE (01:44)
[2023-11-01] MEDS ORDERED: ALBUTEROL SO4 0.083% IH SOL 2.5 MG/3 ML VIAL.NEB. NEB PRN (09:13)
[2023-11-01 10:06] LABS: BASO % 0.9 % (0-2.0); EOS % 0.4 % (0-4.5); HEMATOCRIT 20.9 % (32.4-45.2); LYMPH % 21.8 % (8-40); MCH 28.3 pg (25.7-33.7); MCHC 33.7 g/dl (32.0-36.0); MEAN PLT VOLUME 8.6 fl (7.5-11.1); MONO % 3.2 % (3.8-10.2); NEUT % 73.7 % (42.8-82.8); PLATELET COUNT 299 10^3/uL (134-434); RBC 2.49 M/mm3 (3.60-5.2); RDW 19.7 % (11.6-15.6); WHITE BLOOD COUNT 15.6 K/mm3 (4.0-10.0)
[2023-11-01 10:19] LABS: POTASSIUM 4.2 mmol/L (3.5-5.1)
[2023-11-01 10:22] LABS: BLOOD UREA NITROGEN 24.7 mg/dL (7-18); CALCIUM 9.6 mg/dL (8.5-10.1)
[2023-11-01 10:26] LABS: CREATININE 1.1 mg/dL (0.55-1.3)
[2023-11-01] MEDS: TIOTROPIUM BROMIDE 2.5 MCG (SPIRIVA) RESPIMAT INHALER IH SCH (10:37)
[2023-11-01] MEDS: PANTOPRAZOLE SODIUM 40 MG VIAL IVPUSH SCH (11:20)
[2023-11-01 15:35] VITALS: RESP 18
[2023-11-01 23:24] VITALS: BP 150/79; PULSE 90; TEMP 97.8
== END 2023-11-01 23:52 | disposition short-term general hospital (02) ==
LOC: JER 20:06 → JERBED 11-01 00:50 → J6W 11-01 03:17
PROVIDERS: ADMIT Student in an Organized Health Care Education/Training Program; ATTEND Family Medicine
PROC: 0DC58ZZ Extirpation of Matter from Esophagus, Via Natural or Artificial Opening Endoscopic (ICD-10-PCS; principal; 2023-11-01)
PROC: 0DJ08ZZ Inspection of Upper Intestinal Tract, Via Natural or Artificial Opening Endoscopic (ICD-10-PCS; 2023-11-01)
PROC: 30233N1 Transfusion of Nonautologous Red Blood Cells into Peripheral Vein, Percutaneous Approach (ICD-10-PCS; 2023-11-01)
DX: T18.128A Food in esophagus causing other injury, initial encounter (principal); D64.9 Anemia, unspecified; I48.91 Unspecified atrial fibrillation; J44.9 Chronic obstructive pulmonary disease, unspecified; G89.29 Other chronic pain; I10 Essential (primary) hypertension; Z87.19 Personal history of other diseases of the digestive system; E11.9 Type 2 diabetes mellitus without complications; M54.50 Low back pain, unspecified; Z90.49 Acquired absence of other specified parts of digestive tract; Z90.79 Acquired absence of other genital organ(s); F11.90 Opioid use, unspecified, uncomplicated; X58.XXXA Exposure to other specified factors, initial encounter; Z88.8 Allergy status to other drugs, medicaments and biological substances; K21.9 Gastro-esophageal reflux disease without esophagitis; Z86.711 Personal history of pulmonary embolism; Z86.718 Personal history of other venous thrombosis and embolism; Z86.2 Personal history of diseases of the blood and blood-forming organs and certain disorders involving the immune mechanism; Z53.8 Procedure and treatment not carried out for other reasons
CPT/HCPCS: 36415; 36430; 70490-TC; 71045-TC-FY; 71250-TC; 80048; 80053; 82272; 85025; 85610; 85730; 86850; 86900; 86901; 86922; 87635; 93005; 93010; 96374; 96375; 96376; 99285-25; G0378; P9038; P9058